=== PATIENT | female | born 1955 | race Caucasian/White ===

== ENCOUNTER 2021-08-06 02:39 | Outpatient (CLI) | payer MEDICARE, MEDICAID, SELFPAY ==
[2021-08-06 08:29] LABS: Abs Immature Grans 0.03 10^3/uL (0.0-0.06); Absolute Basophil Count 0.09 10^3/uL (0.0-0.2); Absolute Eosinophil Count 0.04 10^3/uL (0.0-0.7); Absolute Lymphocyte Count 1.31 10^3/uL (1.2-3.4); Absolute Neutrophil Count 3.31 10^3/uL (1.2-6.7); Basophils % 1.7; Eosinophils % 0.8; HCT 38.5 % (36.0-46.0); HGB 11.7 g/dL (11.2-15.7); Immature Grans % 0.6; Lymphocytes % 24.8; MCH 30.3 pg (27.0-33.0); MCHC 30.4 % (32.0-36.0); MCV 99.7 fL (80-95); MPV 10.2 fL (8.0-11.0); Monocytes % 9.5; Neutrophils % 62.6; Nucleated RBC 0 %; Platelet Count 293 10^3/uL (130-400); RBC 3.86 10^6/uL (3.93-5.22); RDW 14.5 % (11.7-14.6); RDW-SD 52.2 fL; WBC 5.28 10^3/uL (4.4-10.8)
[2021-08-06 08:46] LABS: ALT 22 U/L (14-59); AST 15 U/L (15-37); Albumin 3.6 g/dL (3.4-5.0); Alkaline Phosphatase 55 U/L (46-116); BUN 19 mg/dL (7-18); Bilirubin, Total 0.3 mg/dL (0.2-1.0); CREATININE 0.9 mg/dL (0.55-1.02); Chloride 106 mmol/L (98-107); Glucose 98 mg/dL (74-106); Magnesium 2.2 mg/dL (1.8-2.4); Potassium 4.5 mmol/L (3.5-5.1); Sodium 143 mmol/L (136-145); Total Protein 7.3 g/dL (6.4-8.2)
== END 2021-08-06 02:40 | disposition home or self-care (01) ==
PROVIDERS: PCP Family Medicine; Visit Provider Internal Medicine Medical Oncology
DX: C34.90 Malignant neoplasm of unspecified part of unspecified bronchus or lung (principal)
CPT/HCPCS: 36415; 80053; 83735; 85025

== ENCOUNTER 2021-08-27 03:32 | Outpatient (CLI) | payer MEDICARE, SELFPAY | END 2021-08-27 03:33 | disposition home or self-care (01) | LOC: LBO 03:33 | PROVIDERS: PCP Family Medicine; Visit Provider Internal Medicine Medical Oncology ==

== ENCOUNTER 2021-08-29 01:45 | Outpatient (CLI) | payer MEDICARE, SELFPAY ==
[2021-08-29 09:13] LABS: Absolute Basophil Count 0.05 10^3/uL (0.0-0.2); Absolute Eosinophil Count 0.03 10^3/uL (0.0-0.7); Absolute Lymphocyte Count 1.01 10^3/uL (1.2-3.4); Absolute Monocyte Count 0.56 10^3/uL (0.1-0.8); Absolute Neutrophil Count 5.09 10^3/uL (1.2-6.7); Basophils % 0.7; Eosinophils % 0.4; HCT 36.8 % (36.0-46.0); HGB 11.5 g/dL (11.2-15.7); Immature Grans % 2.9; Lymphocytes % 14.6; MCH 30.6 pg (27.0-33.0); MCHC 31.3 % (32.0-36.0); MCV 97.9 fL (80-95); MPV 8.9 fL (8.0-11.0); Monocytes % 8.1; Neutrophils % 73.3; Nucleated RBC 0 %; Platelet Count 351 10^3/uL (130-400); RBC 3.76 10^6/uL (3.93-5.22); RDW 14.2 % (11.7-14.6); RDW-SD 50.9 fL; WBC 6.94 10^3/uL (4.4-10.8)
[2021-08-29 09:23] LABS: ALT 20 U/L (14-59); AST 13 U/L (15-37); Albumin 3.5 g/dL (3.4-5.0); Alkaline Phosphatase 73 U/L (46-116); Anion Gap 7.9 mmol/L (3-11); BUN 22 mg/dL (7-18); Bilirubin, Total 0.2 mg/dL (0.2-1.0); CO2 32.1 mmol/L (21.0-32.0); Calcium 9.3 mg/dL (8.5-10.1); Chloride 101 mmol/L (98-107); Estimated GFR 55.64 (mL/min/1.73m2); Glucose 91 mg/dL (74-106); Magnesium 2.1 mg/dL (1.8-2.4); Potassium 3.8 mmol/L (3.5-5.1); Sodium 141 mmol/L (136-145); Total Protein 7.7 g/dL (6.4-8.2)
== END 2021-08-29 01:46 | disposition home or self-care (01) ==
LOC: LBO 01:46
PROVIDERS: PCP Family Medicine; Visit Provider Internal Medicine Medical Oncology
DX: C34.90 Malignant neoplasm of unspecified part of unspecified bronchus or lung (principal)
CPT/HCPCS: 36415; 80053; 83735; 85025

== ENCOUNTER 2021-09-17 01:43 | Outpatient (CLI) | payer MEDICARE, SELFPAY ==
[2021-09-17 08:49] LABS: HCT 29.1 % (36.0-46.0); HGB 9.1 g/dL (11.2-15.7); MCH 30.5 pg (27.0-33.0); MCHC 31.3 % (32.0-36.0); MCV 97.7 fL (80-95); MPV 9.4 fL (8.0-11.0); Nucleated RBC 0 %; Platelet Count 125 10^3/uL (130-400); RBC 2.98 10^6/uL (3.93-5.22); RDW 15.1 % (11.7-14.6); RDW-SD 50.6 fL
[2021-09-17 09:00] LABS: ALT 25 U/L (14-59); AST 17 U/L (15-37); Albumin 3.4 g/dL (3.4-5.0); Alkaline Phosphatase 74 U/L (46-116); Anion Gap 5.6 mmol/L (3-11); BUN 13 mg/dL (7-18); Bilirubin, Total 0.2 mg/dL (0.2-1.0); CO2 33.4 mmol/L (21.0-32.0); CREATININE 0.8 mg/dL (0.55-1.02); Calcium 8.8 mg/dL (8.5-10.1); Chloride 104 mmol/L (98-107); Glucose 87 mg/dL (74-106); Magnesium 1.9 mg/dL (1.8-2.4); Potassium 3.9 mmol/L (3.5-5.1); Sodium 143 mmol/L (136-145); WBC 1.55 10^3/uL (4.4-10.8)
[2021-09-17 09:03] LABS: Absolute Eosinophil Count 0.02 10^3/uL (0.0-0.7); Absolute Lymphocyte Count 0.59 10^3/uL (1.2-3.4); Absolute Monocyte Count 0.36 10^3/uL (0.1-0.8); Absolute Neutrophil Count 0.56 10^3/uL (1.2-6.7); Atypical Lymphocytes % 5; Bands % 2; Diff Comment Manual Differential; Metamyelocytes % 2; RBC Morphology Normal
== END 2021-09-17 01:44 | disposition home or self-care (01) ==
LOC: LBO 01:43
PROVIDERS: PCP Family Medicine; Visit Provider Internal Medicine Medical Oncology
DX: C34.90 Malignant neoplasm of unspecified part of unspecified bronchus or lung (principal)
CPT/HCPCS: 36415; 80053; 83735; 85025

== ENCOUNTER 2021-09-24 02:50 | Outpatient (CLI) | payer MEDICARE, SELFPAY ==
[2021-09-24 10:29] LABS: Abs Immature Grans 0.01 10^3/uL (0.0-0.06); Absolute Basophil Count 0.04 10^3/uL (0.0-0.2); Absolute Eosinophil Count 0.02 10^3/uL (0.0-0.7); Absolute Lymphocyte Count 1.02 10^3/uL (1.2-3.4); Absolute Monocyte Count 0.69 10^3/uL (0.1-0.8); Absolute Neutrophil Count 3.48 10^3/uL (1.2-6.7); Basophils % 0.8; Eosinophils % 0.4; HCT 32.1 % (36.0-46.0); HGB 10.1 g/dL (11.2-15.7); Immature Grans % 0.2; Lymphocytes % 19.4; MCHC 31.5 % (32.0-36.0); MCV 98.5 fL (80-95); MPV 8.5 fL (8.0-11.0); Monocytes % 13.1; Neutrophils % 66.1; Nucleated RBC 0 %; Platelet Count 308 10^3/uL (130-400); RBC 3.26 10^6/uL (3.93-5.22); RDW 17.2 % (11.7-14.6); WBC 5.26 10^3/uL (4.4-10.8)
[2021-09-24 10:49] LABS: ALT 18 U/L (14-59); AST 13 U/L (15-37); Albumin 3.8 g/dL (3.4-5.0); Alkaline Phosphatase 75 U/L (46-116); Anion Gap 6.6 mmol/L (3-11); BUN 16 mg/dL (7-18); Bilirubin, Total 0.3 mg/dL (0.2-1.0); CO2 31.4 mmol/L (21.0-32.0); CREATININE 0.9 mg/dL (0.55-1.02); Calcium 9.1 mg/dL (8.5-10.1); Chloride 104 mmol/L (98-107); Glucose 87 mg/dL (74-106); Potassium 3.8 mmol/L (3.5-5.1); Sodium 142 mmol/L (136-145); Total Protein 7.5 g/dL (6.4-8.2)
== END 2021-09-24 02:51 | disposition home or self-care (01) ==
LOC: LBO 02:51
PROVIDERS: PCP Family Medicine; Visit Provider Internal Medicine Medical Oncology
DX: C34.90 Malignant neoplasm of unspecified part of unspecified bronchus or lung (principal)
CPT/HCPCS: 36415; 80053; 83735; 85025

== ENCOUNTER 2021-10-02 00:50 | Outpatient (CLI) | payer MEDICARE, SELFPAY ==
--- NOTE | 2021-10-02 | DI.MRI_ITS ---
Exam(s) MR BRAIN WO/W EXAM: MR BRAIN WO/W CLINICAL HISTORY: LUNG CA,C34.90,S/P TREATMENT,RESTAGING EXAM TECHNIQUE: Multiplanar multisequence MRI of the brain was performed. CONTRAST MATERIAL: IV Contrast: 12 mL of Dotarem contrast administered. FINDINGS: VENTRICLES AND EXTRA AXIAL SPACES: Normal in size and morphology for the patient's age. HEMORRHAGE: None. CEREBRAL PARENCHYMA: No focus of restricted diffusion to suggest acute infarct. No space-occupying le gerard identified. There are areas of hyperintense signal in the white matter on the T2 and FLAIR image s most consistent with small vessel ischemic disease. There is again seen an area of CSF signal in t he left cerebellar hemisphere which may represent an old infarct. MIDLINE SHIFT: None. BRAINSTEM/CEREBELLUM: Normal. CALVARIUM: Normal. ENHANCEMENT: No suspicious enhancement identified. VISUALIZED PARANASAL SINUSES/MASTOIDS: Clear. [place]: Normal flow void. PITUITARY GLAND: Unremarkable. OTHER FINDINGS: IMPRESSION: No evidence of intracranial metastatic disease. DATA REPOSITORY:
== END 2021-10-02 01:10 ==
PROVIDERS: PCP Family Medicine; Visit Provider Radiology Radiation Oncology
DX: C34.90 Malignant neoplasm of unspecified part of unspecified bronchus or lung (principal); Z12.89 Encounter for screening for malignant neoplasm of other sites; I67.82 Cerebral ischemia
CPT/HCPCS: 70553

== ENCOUNTER → 2021-10-02 00:51 | Outpatient (CLI) | payer MEDICARE, MEDICAID, SELFPAY ==
[2021-10-02] MEDS: Omnipaque 350 MG/ML 100 ML BTL 70 ML IJ (09:05)
--- NOTE | 2021-10-02 09:07 | DI.CT_ITS ---
Exam(s) CT CHEST W EXAM: CT CHEST W CLINICAL HISTORY: LUNG CA,C34.90,CHEMO INDUCED NEUROPENIA,D70.1,T45.1X5A,? TREATMENT RESPONSE TECHNIQUE: Imaging Protocol: Axial computed tomography images with coronal and sagittal reformatted images were created and reviewed CONTRAST MATERIAL: Intravenous: Omnipaque 350 Contrast volume:70 mL. COMPARISON: CT,PT NM PET CT STANDARD SKULL BASE TO MID-THIGH from 06/18/[address] CHEST W CONTRAST from 07/24/2021 FINDINGS: Tracheobronchial tree: Patent where visualized. Pulmonary parenchyma: No consolidation or dominant measurable mass. Centrilobular emphysematous angeles es are present. The small previously described oblong density in the superior segment of the left lo wer lobe is unchanged. (Series 2, image 194). No other pulmonary nodules are identified. There is a calcified nodule in the left lower lobe. Mediastinum and Sofiya: There has been continued decrease in size of the subcarinal mass now measuring 6 mm x 9 mm. The esophagus is unremarkable. Thyroid gland: Unremarkable. Pleura: No effusion or pneumothorax. Heart: The heart is not dilated. Mild coronary artery calcification. No pericardial effusion. Aorta: Thoracic aorta non-dilated. Atherosclerosis. Pulmonary arteries: Pulmonary arteries are insufficiently opacified for evaluation of pulmonary embol ic disease. No central pulmonary embolus is seen. Upper abdomen: Stable findings in the upper abdomen. Lymph nodes: No significant axillary adenopathy. Bones: Within normal limits for the patient's age. Soft tissues: Unremarkable. IMPRESSION: 1. Continued decrease in size of the subcarinal mass/adenopathy. 2. Stable density in the superior segment of the left lower lobe. RADIATION DOSE DELIVERED: 344.57mGy.cm Total DLP DATA REPOSITORY: All CT scans at this facility are submitted to the National Radiology Data Registry (NRDR) Dose Index Registry (DIR) with the [employer] (ACR). RADIATION OPTIMIZATION: All CT scans at this facility use at least one of these dose optimization te chniques: automated exposure control; mA and/or kV adjustment per patient size (includes targeted exa ms where dose is matched to clinical indication); or iterative reconstruction.
== END ==
PROVIDERS: PCP Family Medicine; Visit Provider Nurse Practitioner Family
DX: C34.92 Malignant neoplasm of unspecified part of left bronchus or lung (principal); D70.1 Agranulocytosis secondary to cancer chemotherapy; J43.2 Centrilobular emphysema
CPT/HCPCS: 70553; 71260; J3490

== ENCOUNTER → 2022-01-31 01:52 | Outpatient (CLI) | payer MEDICARE, MEDICAID, SELFPAY ==
--- NOTE | 2022-01-31 | DI.CT_ITS ---
Exam(s) CT CHEST W EXAM: CT CHEST W CLINICAL HISTORY: F/U LUNG CA, RESTAGING S/P CHEMO AND RT,C34.90 TECHNIQUE: Imaging Protocol: Axial computed tomography images with coronal and sagittal reformatted images were created and reviewed CONTRAST MATERIAL: Intravenous: Omnipaque 350 Contrast volume:70 mL. COMPARISON: CT CT CHEST SCREENING LUNG CANCER from 05/28/2021 CT,PT NM PET CT STANDARD SKULL BASE TO MID-THIGH from 06/18/[address] CHEST W CONTRAST from 07/24/[address] CHEST W from 10/02/2021 FINDINGS: Tracheobronchial tree: Patent where visualized. Pulmonary parenchyma: No consolidation or dominant measurable mass. Mild centrilobular emphysematous changes are present. The ovoid opacity in the superior segment of the left lower lobe is stable. (S eries 4, image 207). No new pulmonary nodules are present. Mediastinum and Sofiya: No dominant adenopathy or fluid collection. The subcarinal lymph node is uncha nged compared to the prior examination. The esophagus is unremarkable. Thyroid gland: Unremarkable. Pleura: No effusion or pneumothorax. Heart: The heart is not dilated. No coronary artery calcifications are seen. No pericardial effusion. Aorta: Thoracic aorta non-dilated. Atherosclerosis is present. Pulmonary arteries: The pulmonary arteries are not adequately opacified for evaluation of pulmonary e mbolic disease. Upper abdomen: There is decreased attenuation of the liver suggesting fatty infiltration. Lymph nodes: No axillary or supraclavicular adenopathy is present. Bones: Within normal limits for the patient's age. Soft tissues: Unremarkable. IMPRESSION: 1. No significant change in appearance of the chest compared to the prior examination. RADIATION DOSE DELIVERED: 394.79mGy.cm Total DLP DATA REPOSITORY: All CT scans at this facility are submitted to the National Radiology Data Registry (NRDR) Dose Index Registry (DIR) with the [employer] (ACR). RADIATION OPTIMIZATION: All CT scans at this facility use at least one of these dose optimization te chniques: automated exposure control; mA and/or kV adjustment per patient size (includes targeted exa ms where dose is matched to clinical indication); or iterative reconstruction.
[2022-01-31 08:13] LABS: Abs Immature Grans 0.02 10^3/uL (0.0-0.06); Absolute Basophil Count 0.03 10^3/uL (0.0-0.2); Absolute Eosinophil Count 0.08 10^3/uL (0.0-0.7); Absolute Lymphocyte Count 0.95 10^3/uL (1.2-3.4); Absolute Monocyte Count 0.39 10^3/uL (0.1-0.8); Absolute Neutrophil Count 3.77 10^3/uL (1.2-6.7); Basophils % 0.6; Eosinophils % 1.5; HCT 41.2 % (36.0-46.0); HGB 12.9 g/dL (11.2-15.7); Immature Grans % 0.4; Lymphocytes % 18.1; MCHC 31.3 % (32.0-36.0); MCV 96 fL (80-95); MPV 9.2 fL (8.0-11.0); Monocytes % 7.4; Platelet Count 209 10^3/uL (130-400); RDW 13.7 % (11.7-14.6); RDW-SD 48.4 fL; WBC 5.24 10^3/uL (4.4-10.8)
[2022-01-31 08:54] LABS: ALT 18 U/L (14-59); AST 11 U/L (15-37); Albumin 3.8 g/dL (3.4-5.0); Alkaline Phosphatase 60 U/L (46-116); Anion Gap 9.4 mmol/L (3-11); BUN 15 mg/dL (7-18); Bilirubin, Total 0.4 mg/dL (0.2-1.0); CO2 29.6 mmol/L (21.0-32.0); Calcium 9.4 mg/dL (8.5-10.1); Chloride 99 mmol/L (98-107); Estimated GFR 55.47 (mL/min/1.73m2); Glucose 124 mg/dL (74-106); Magnesium 1.8 mg/dL (1.8-2.4); Potassium 3.3 mmol/L (3.5-5.1); Sodium 138 mmol/L (136-145); Total Protein 7.4 g/dL (6.4-8.2)
[2022-01-31] MEDS: Omnipaque 350 MG/ML 100 ML BTL IJ (09:10)
== END ==
PROVIDERS: PCP Family Medicine; Visit Provider Internal Medicine Medical Oncology
DX: C34.90 Malignant neoplasm of unspecified part of unspecified bronchus or lung (principal)
CPT/HCPCS: 80053; 71260; 83735; 85025; J3490

== ENCOUNTER → 2022-03-06 02:05 | Outpatient (CLI) | payer MEDICARE, MEDICAID, SELFPAY ==
--- NOTE | 2022-03-06 | DI.MRI_ITS ---
Exam(s) MR BRAIN WO/W EXAM: MR BRAIN WO/W CLINICAL HISTORY: LUNG CANCER C34.90. TECHNIQUE: Multiplanar multisequence MRI of the brain was performed. CONTRAST MATERIAL: IV Contrast: 12 ML of Dotarem contrast administered. COMPARISON: MR MR BRAIN WO/W from 10/02/2021 FINDINGS: VENTRICLES AND EXTRA AXIAL SPACES: Normal in size and morphology for the patient's age. HEMORRHAGE: None. CEREBRAL PARENCHYMA: Mild atrophy. Mild white matter changes consistent with small vessel disease. No focus of restricted diffusion to suggest acute infarct. No space-occupying lesion identified. MIDLINE SHIFT: None. BRAINSTEM/CEREBELLUM: Stable small area of CSF signal left cerebellum.. CALVARIUM: Normal. ENHANCEMENT: No suspicious enhancement identified. VISUALIZED PARANASAL SINUSES/MASTOIDS: Clear. OTHER FINDINGS: None. IMPRESSION: No evidence of metastatic disease. Stable mild white matter changes of small vessel disease. DATA REPOSITORY:
[2022-03-06] MEDS: Normal Saline Flush 10 ML SYR IVP (08:58)
== END ==
PROVIDERS: PCP Family Medicine; Visit Provider Radiology Radiation Oncology
DX: R90.82 White matter disease, unspecified (principal); C34.90 Malignant neoplasm of unspecified part of unspecified bronchus or lung
CPT/HCPCS: 70553

== ENCOUNTER → 2022-06-12 02:15 | Outpatient (CLI) | payer MEDICARE, MEDICAID, SELFPAY ==
--- NOTE | 2022-06-12 | DI.CT_ITS ---
Exam(s) CT CHEST W EXAM: CT CHEST W CLINICAL HISTORY: CARCINOMA OF LUNG C34.90, S/P CHEMO, SURVAILLANCE TECHNIQUE: Imaging Protocol: Axial computed tomography images with coronal and sagittal reformatted images were created and reviewed CONTRAST MATERIAL: Intravenous: Omnipaque 350Contrast volume:70 mL. COMPARISON: CT CT CHEST W CONTRAST from 07/24/[address] CHEST W from 01/31/2022 FINDINGS: Tracheobronchial tree: Patent where visualized. Pulmonary parenchyma: No consolidation or dominant measurable mass. Emphysematous changes are present in the lungs. The small ovoid structure in the superior segment of the left lower lobe is grossly un changed. (Series 4, image 178). The lungs are otherwise clear. No other pulmonary nodules are seen . Mediastinum and Sofiya: No dominant adenopathy or fluid collection. The esophagus is unremarkable. Thyroid gland: Unremarkable. Pleura: No effusion or pneumothorax. Heart: The heart is not dilated. Mild coronary artery calcification is present. No pericardial effusi on. Aorta: Thoracic aorta non-dilated. Atherosclerosis is present. Pulmonary arteries: The pulmonary arteries are insufficiently of opacified for evaluation of pulmonar y emboli. Upper abdomen: There is diffuse fatty infiltration of the liver. Lymph nodes: Within normal limits. Bones: Within normal limits for the patient's age. Soft tissues: Unremarkable. IMPRESSION: Stable appearance of the chest since 01/31/2022. RADIATION DOSE DELIVERED: 383.9mGy.cm Total DLP DATA REPOSITORY: All CT scans at this facility are submitted to the National Radiology Data Registry (NRDR) Dose Index Registry (DIR) with the [employer] (ACR). RADIATION OPTIMIZATION: All CT scans at this facility use at least one of these dose optimization te chniques: automated exposure control; mA and/or kV adjustment per patient size (includes targeted exa ms where dose is matched to clinical indication); or iterative reconstruction.
[2022-06-12 14:37] LABS: ALT 19 U/L (14-59); AST 13 U/L (15-37); Albumin 3.4 g/dL (3.4-5.0); Alkaline Phosphatase 65 U/L (46-116); Anion Gap 6.3 mmol/L (3-11); BUN 17 mg/dL (7-18); Bilirubin, Total 0.3 mg/dL (0.2-1.0); CO2 33.7 mmol/L (21.0-32.0); CREATININE 1.1 mg/dL (0.55-1.02); Calcium 8.8 mg/dL (8.5-10.1); Chloride 104 mmol/L (98-107); Estimated GFR 55.42 (mL/min/1.73m2); Glucose 101 mg/dL (74-106); LDH 146 U/L (81-234); Potassium 3.9 mmol/L (3.5-5.1); Sodium 144 mmol/L (136-145)
[2022-06-12] MEDS: Omnipaque 350 MG/ML 500 ML BTL-Imaging package IJ (14:55)
== END ==
PROVIDERS: PCP Family Medicine; Visit Provider Internal Medicine Medical Oncology
DX: C34.90 Malignant neoplasm of unspecified part of unspecified bronchus or lung (principal)
CPT/HCPCS: 80053; 71260; 83615; 85025

== ENCOUNTER → 2022-07-11 01:03 | Outpatient (CLI) | payer MEDICARE, MEDICAID, SELFPAY ==
--- NOTE | 2022-07-11 12:55 | DI.MRI_ITS ---
Exam(s) MR BRAIN WO/W EXAM: MR BRAIN WO/W CLINICAL HISTORY: SMALL CELL CA LUNG, C34.90, S/P IRRADIATION, F/U SURVEILLANCE TECHNIQUE: Multiplanar multisequence MRI of the brain was performed. CONTRAST MATERIAL: IV Contrast: 13 mL of Dotarem contrast administered. MR MR BRAIN WO/W from 03/06/2022 FINDINGS: VENTRICLES AND EXTRA AXIAL SPACES: Normal in size and morphology for the patient's age. HEMORRHAGE: None. CEREBRAL PARENCHYMA: No focus of restricted diffusion to suggest acute infarct. No space-occupying le gerard identified. There are areas of hyperintense signal seen in the white matter on the FLAIR and T2 weighted images most consistent with small vessel ischemic disease. MIDLINE SHIFT: None. BRAINSTEM/CEREBELLUM: Normal. CALVARIUM: Normal. ENHANCEMENT: No suspicious enhancement identified. No intracranial mass or enhancing lesion is identi fied. VISUALIZED PARANASAL SINUSES/MASTOIDS: Clear. [place]: Normal flow void. PITUITARY GLAND: Unremarkable. OTHER FINDINGS: IMPRESSION: No evidence of intracranial metastatic disease. DATA REPOSITORY:
== END ==
PROVIDERS: PCP Family Medicine; Visit Provider Radiology Radiation Oncology
DX: C34.90 Malignant neoplasm of unspecified part of unspecified bronchus or lung (principal)
CPT/HCPCS: 70553

== ENCOUNTER 2022-10-14 02:01 | Outpatient (CLI) | payer MEDICARE, MEDICAID, SELFPAY ==
--- NOTE | 2022-10-14 | DI.CT_ITS ---
Exam(s) CT CHEST W EXAM: CT CHEST W CLINICAL HISTORY: LUNG CANCER C34.90 TECHNIQUE: Imaging Protocol: Axial computed tomography images with coronal and sagittal reformatted images were created and reviewed CONTRAST MATERIAL: Intravenous: Omnipaque 350Contrast volume:70 mL. COMPARISON: CT CT CHEST SCREENING LUNG CANCER from 05/28/[address] CHEST W CONTRAST from 07/24/[address] CHEST W from 06/12/2022 FINDINGS: Tracheobronchial tree: Patent where visualized. Pulmonary parenchyma: Emphysematous changes are present in the lungs. The nodular area in the superi or segment of the left lower lobe is much less prominent compared to the prior examination. No other pulmonary nodules or infiltrates are seen. No architectural distortion. Mediastinum and Sofiya: No dominant adenopathy or fluid collection. The esophagus is unremarkable. Thyroid gland: Unremarkable. Pleura: No effusion or pneumothorax. Heart: The heart is not dilated. Coronary artery calcification is present. No pericardial effusion. Aorta: Thoracic aorta non-dilated. Atherosclerosis is present. Pulmonary arteries: Due to the timing of the bolus, the segmental and subsegmental pulmonary arteries are inadequately opacified for evaluation of pulmonary artery emboli. No large central pulmonary em bolus is seen. Upper abdomen: Fatty liver. Lymph nodes: Within normal limits. Bones: Within normal limits for the patient's age. Soft tissues: Unremarkable. IMPRESSION: Stable appearance of the CT scan of the chest. RADIATION DOSE DELIVERED: 357.96mGy.cm Total DLP DATA REPOSITORY: All CT scans at this facility are submitted to the National Radiology Data Registry (NRDR) Dose Index Registry (DIR) with the [employer] (ACR). RADIATION OPTIMIZATION: All CT scans at this facility use at least one of these dose optimization te chniques: automated exposure control; mA and/or kV adjustment per patient size (includes targeted exa ms where dose is matched to clinical indication); or iterative reconstruction.
--- NOTE | 2022-10-14 | DI.MRI_ITS ---
Exam(s) MR BRAIN WO/W EXAM: MR BRAIN WO/W CLINICAL HISTORY: LIMITED STAGE SMALL CELL LUNG CA, SURVEILLANCE, C34.91 TECHNIQUE: Multiplanar multisequence MRI of the brain was performed. CONTRAST MATERIAL: IV Contrast: 13 mL of Dotarem contrast administered. COMPARISON: MR MR BRAIN WO/W from 07/11/2022 FINDINGS: VENTRICLES AND EXTRA AXIAL SPACES: Normal in size and morphology for the patient's age. HEMORRHAGE: None. CEREBRAL PARENCHYMA: No focus of restricted diffusion to suggest acute infarct. No space-occupying le gerard identified. There are areas of hyperintense signal seen in the white matter on the FLAIR and T2 weighted images consistent with small vessel ischemic disease. There is an old lacunar infarct in th e left cerebellum. MIDLINE SHIFT: None. BRAINSTEM/CEREBELLUM: Normal. CALVARIUM: Normal. ENHANCEMENT: No suspicious enhancement identified. VISUALIZED PARANASAL SINUSES/MASTOIDS: Clear. [place]: Normal flow void. PITUITARY GLAND: Unremarkable. OTHER FINDINGS: IMPRESSION: No evidence of intracranial metastatic disease. DATA REPOSITORY:
[2022-10-14 13:11] LABS: Abs Immature Grans 0.01 10^3/uL (0.0-0.06); Absolute Basophil Count 0.04 10^3/uL (0.0-0.2); Absolute Eosinophil Count 0.09 10^3/uL (0.0-0.7); Absolute Monocyte Count 0.45 10^3/uL (0.1-0.8); Absolute Neutrophil Count 3.78 10^3/uL (1.2-6.7); Basophils % 0.7; Eosinophils % 1.6; HCT 42.5 % (36.0-46.0); HGB 13.2 g/dL (11.2-15.7); Immature Grans % 0.2; Lymphocytes % 22.9; MCH 30.6 pg (27.0-33.0); MCHC 31.1 % (32.0-36.0); MCV 98 fL (80-95); MPV 9.5 fL (8.0-11.0); Monocytes % 7.9; Neutrophils % 66.7; Platelet Count 210 10^3/uL (130-400); RBC 4.32 10^6/uL (3.93-5.22); RDW-SD 46.2 fL; WBC 5.67 10^3/uL (4.4-10.8)
[2022-10-14 13:33] LABS: ALT 24 U/L (14-59); AST 19 U/L (15-37); Alkaline Phosphatase 76 U/L (46-116); Anion Gap 6.6 mmol/L (3-11); BUN 19 mg/dL (7-18); Bilirubin, Total 0.4 mg/dL (0.2-1.0); CO2 31.4 mmol/L (21.0-32.0); Calcium 9.5 mg/dL (8.5-10.1); Chloride 102 mmol/L (98-107); Estimated GFR 62.13 (mL/min/1.73m2); Glucose 88 mg/dL (74-106); Potassium 4.2 mmol/L (3.5-5.1); Sodium 140 mmol/L (136-145); Total Protein 7.8 g/dL (6.4-8.2)
[2022-10-14] MEDS: Normal Saline Flush 10 ML SYR IVP (13:58)
[2022-10-14] MEDS: Gadoterate meglumine 20 ML VIAL 13 ML IVP (13:58)
[2022-10-14] MEDS: Normal Saline - Diluent 50 ML VIAL IJ (14:38)
[2022-10-14] MEDS: Omnipaque 350 MG/ML 100 ML BTL 70 ML IJ (14:41)
== END 2022-10-14 02:21 ==
PROVIDERS: PCP Family Medicine; Visit Provider Radiology Radiation Oncology
DX: C34.91 Malignant neoplasm of unspecified part of right bronchus or lung (principal); J43.8 Other emphysema; K76.0 Fatty (change of) liver, not elsewhere classified; I67.89 Other cerebrovascular disease; Z12.89 Encounter for screening for malignant neoplasm of other sites; D70.1 Agranulocytosis secondary to cancer chemotherapy
CPT/HCPCS: 70553; 80053; 71260; 85025; J3490

== ENCOUNTER → 2023-04-21 02:50 | Outpatient (CLI) | payer MEDICARE, MEDICAID, SELFPAY ==
--- NOTE | 2023-04-21 | DI.MRI_ITS ---
Exam(s) MR BRAIN WO/W EXAM: MR BRAIN WO/W CLINICAL HISTORY: LUNG CANCER C34.90 SURVEILLANCE SCAN. TECHNIQUE: Multiplanar multisequence MRI of the brain was performed. CONTRAST MATERIAL: IV Contrast: 13 ML of Dotarem contrast administered. COMPARISON: MR MR BRAIN WO/W from 10/14/2022 FINDINGS: VENTRICLES AND EXTRA AXIAL SPACES: Normal in size and morphology for the patient's age. HEMORRHAGE: None. CEREBRAL PARENCHYMA: No focus of restricted diffusion to suggest acute infarct. No space-occupying le gerard identified. White matter changes of small vessel disease. MIDLINE SHIFT: None. BRAINSTEM/CEREBELLUM: Small area of old infarct in the left inferior cerebellum. CALVARIUM: Normal. ENHANCEMENT: No suspicious enhancement identified. VISUALIZED PARANASAL SINUSES/MASTOIDS: Clear. OTHER FINDINGS: None. IMPRESSION: No evidence of metastatic disease. White matter changes of small vessel disease. DATA REPOSITORY:
--- NOTE | 2023-04-21 | DI.CT_ITS ---
Exam(s) CT CHEST W EXAM: CT CHEST W CLINICAL HISTORY: LUNG CANCER C34.90 SURVEILLANCE SCAN TECHNIQUE: Imaging Protocol: Axial computed tomography images with coronal and sagittal reformatted images were created and reviewed CONTRAST MATERIAL: Intravenous: Omnipaque 350 Contrast volume:70 ml. COMPARISON: CT CT CHEST W from 01/31/[address] CHEST W from 10/14/2022 FINDINGS: Pulmonary parenchyma: No consolidation. No dominant measurable mass. [id number] emphysematous changes. Tracheobronchial tree: No bronchiectasis or mucous plugging. Mediastinum and Sofiya: No dominant adenopathy or fluid collection. Pleura: No effusion. No pneumothorax. Heart: The heart is not dilated. Minimal coronary artery calcifications are seen. Aorta: Thoracic aorta non-dilated. Minimal atherosclerotic changes. Upper abdomen: Hepatic steatosis. Bones: Minimaldegenerative changes in the spine. No lytic or blastic lesions. Soft tissues: Unremarkable. IMPRESSION: Emphysematous changes. No pulmonary nodules or infiltrates. RADIATION DOSE DELIVERED: 410.48mGy.cm Total DLP DATA REPOSITORY: All CT scans at this facility are submitted to the National Radiology Data Registry (NRDR) Dose Index Registry (DIR) with the [employer] (ACR). RADIATION OPTIMIZATION: All CT scans at this facility use at least one of these dose optimization te chniques: automated exposure control; mA and/or kV adjustment per patient size (includes targeted exa ms where dose is matched to clinical indication); or iterative reconstruction.
[2023-04-21 08:49] LABS: Abs Immature Grans 0.02 10^3/uL (0.0-0.06); Absolute Basophil Count 0.04 10^3/uL (0.0-0.2); Absolute Eosinophil Count 0.13 10^3/uL (0.0-0.7); Absolute Lymphocyte Count 1.08 10^3/uL (1.2-3.4); Absolute Neutrophil Count 4.37 10^3/uL (1.2-6.7); Basophils % 0.7; Eosinophils % 2.2; HCT 42.7 % (36.0-46.0); HGB 13.5 g/dL (11.2-15.7); Immature Grans % 0.3; Lymphocytes % 17.9; MCH 29.9 pg (27.0-33.0); MCHC 31.6 % (32.0-36.0); MCV 95 fL (80-95); MPV 9.4 fL (8.0-11.0); Monocytes % 6.6; Neutrophils % 72.3; Platelet Count 259 10^3/uL (130-400); RBC 4.51 10^6/uL (3.93-5.22); RDW-SD 45.1 fL; WBC 6.04 10^3/uL (4.4-10.8)
[2023-04-21 09:06] LABS: ALT 25 U/L (14-59); AST 16 U/L (15-37); Albumin 3.8 g/dL (3.4-5.0); Alkaline Phosphatase 87 U/L (46-116); Anion Gap 11.2 mmol/L (3-11); BUN 16 mg/dL (7-18); Bilirubin, Total 0.4 mg/dL (0.2-1.0); CO2 26.8 mmol/L (21.0-32.0); CREATININE 0.9 mg/dL (0.55-1.02); Calcium 9.9 mg/dL (8.5-10.1); Chloride 100 mmol/L (98-107); Estimated GFR 70.07 (mL/min/1.73m2); Glucose 110 mg/dL (74-106); Potassium 3.8 mmol/L (3.5-5.1); Sodium 138 mmol/L (136-145); Total Protein 8.2 g/dL (6.4-8.2)
[2023-04-21] MEDS: Gadoterate meglumine 20 ML SYRINGE IVP (09:20)
[2023-04-21] MEDS: Normal Saline - Diluent 50 ML VIAL IJ (10:07)
[2023-04-21] MEDS: Normal Saline Flush 10 ML SYR IVP (10:08)
[2023-04-21] MEDS: Omnipaque 350 MG/ML 500 ML BTL-Imaging package IJ (10:10)
== END ==
PROVIDERS: PCP Family Medicine; Visit Provider Internal Medicine Medical Oncology
DX: C34.91 Malignant neoplasm of unspecified part of right bronchus or lung (principal)
CPT/HCPCS: 70553; 80053; 71260; 85025

== ENCOUNTER → 2023-10-13 02:12 | Outpatient (CLI) | payer MEDICARE, MEDICAID, SELFPAY ==
--- NOTE | 2023-10-13 | DI.MRI_ITS ---
Exam(s) MR BRAIN WO/W EXAM: MR BRAIN WO/W CLINICAL HISTORY: CARCINOMA OF LUNG C34.90 TECHNIQUE: Multiplanar multisequence MRI of the brain was performed. CONTRAST MATERIAL: IV Contrast: 14 mL of Dotarem contrast administered. MR MR BRAIN WO/W from 07/11/2022 MR MR BRAIN WO/W from 10/14/2022 MR MR BRAIN WO/W from 04/21/2023 FINDINGS: VENTRICLES AND EXTRA AXIAL SPACES: Normal in size and morphology for the patient's age. HEMORRHAGE: None. CEREBRAL PARENCHYMA: No focus of restricted diffusion to suggest acute infarct. No space-occupying le gerard identified. There are nonenhancing areas of hyperintense signal in the white matter most suggest irineo of chronic microvascular ischemic disease. Stable area of volume loss in the left cerebellar hem isphere which may represent an old infarct. MIDLINE SHIFT: None. BRAINSTEM/CEREBELLUM: Normal. CALVARIUM: Normal. ENHANCEMENT: No suspicious enhancement identified. VISUALIZED PARANASAL SINUSES/MASTOIDS: Clear. [place]: Normal flow void. PITUITARY GLAND: Unremarkable. OTHER FINDINGS: IMPRESSION: No evidence of intracranial metastatic disease. DATA REPOSITORY:
[2023-10-13 09:27] LABS: Abs Immature Grans 0.03 10^3/uL (0.0-0.06); Absolute Basophil Count 0.08 10^3/uL (0.0-0.2); Absolute Eosinophil Count 0.13 10^3/uL (0.0-0.7); Absolute Lymphocyte Count 1.37 10^3/uL (1.2-3.4); Absolute Monocyte Count 0.45 10^3/uL (0.1-0.8); Basophils % 0.9; Eosinophils % 1.5; HCT 45.6 % (36.0-46.0); HGB 14.2 g/dL (11.2-15.7); Immature Grans % 0.4; MCH 29.3 pg (27.0-33.0); MCHC 31.1 % (32.0-36.0); MCV 94 fL (80-95); MPV 9.5 fL (8.0-11.0); Monocytes % 5.3; Neutrophils % 75.9; Platelet Count 260 10^3/uL (130-400); RBC 4.84 10^6/uL (3.93-5.22); RDW 13.6 % (11.7-14.6); RDW-SD 47.5 fL; WBC 8.56 10^3/uL (4.4-10.8)
[2023-10-13 09:42] LABS: ALT 48 U/L (14-59); AST 23 U/L (15-37); Alkaline Phosphatase 96 U/L (46-116); Anion Gap 13.2 mmol/L (3-11); BUN 16 mg/dL (7-18); Bilirubin, Total 0.5 mg/dL (0.2-1.0); CO2 25.8 mmol/L (21.0-32.0); CREATININE 1.1 mg/dL (0.55-1.02); Calcium 9.9 mg/dL (8.5-10.1); Chloride 103 mmol/L (98-107); Estimated GFR 55.07 (mL/min/1.73m2); Glucose 124 mg/dL (74-106); Potassium 4.1 mmol/L (3.5-5.1); Sodium 142 mmol/L (136-145); Total Protein 8.3 g/dL (6.4-8.2)
[2023-10-13] MEDS: Gadoterate meglumine 20 ML SYRINGE 14 ML IVP (09:53)
[2023-10-13] MEDS: Normal Saline Flush 10 ML SYR IVP (09:53)
[2023-10-13] MEDS: Omnipaque 350 MG/ML 100 ML BTL 70 ML IJ (10:22)
[2023-10-13] MEDS: Normal Saline - Diluent 50 ML VIAL IJ (10:24)
--- NOTE | 2023-10-13 10:32 | DI.CT_ITS ---
Exam(s) CT CHEST W EXAM: CT CHEST W CLINICAL HISTORY: CARCINOMA OF LUNG C34.90 TECHNIQUE: Imaging Protocol: Axial computed tomography images with coronal and sagittal reformatted images were created and reviewed CONTRAST MATERIAL: Intravenous: Omnipaque 350Contrast volume:70 mL. COMPARISON: CT CT CHEST W from 10/14/[address] CHEST W from 04/21/2023 FINDINGS: Tracheobronchial tree: Patent where visualized. Pulmonary parenchyma: There are mild emphysematous changes present. No focal consolidating infiltrat es. No pulmonary nodules are present. No architectural distortion. Mediastinum and Sofiya: No dominant adenopathy or fluid collection. The esophagus is unremarkable. Thyroid gland: Unremarkable. Pleura: No effusion or pneumothorax. Heart: The heart is not dilated. Mild coronary artery calcification is present. No pericardial effus ion. Aorta: Thoracic aorta non-dilated. Atherosclerotic calcification is present. There is no evidence of dissection. Pulmonary arteries: Due to the bolus timing, evaluation of the peripheral pulmonary arteries is subop timal. No large central pulmonary embolus is present. Upper abdomen: There is diffuse fatty infiltration of the liver. There is unchanged extra hepatic b iliary ductal dilatation. Lymph nodes: Within normal limits. Bones: Within normal limits for the patient's age. No aggressive osseous lesions are present. Soft tissues: Unremarkable. IMPRESSION: 1. No evidence of recurrent or residual metastatic disease. 2. Mild pulmonary emphysema. 3. Fatty infiltration of the liver. RADIATION DOSE DELIVERED: Total DLP DATA REPOSITORY: All CT scans at this facility are submitted to the National Radiology Data Registry (NRDR) Dose Index Registry (DIR) with the [employer] (ACR). RADIATION OPTIMIZATION: All CT scans at this facility use at least one of these dose optimization te chniques: automated exposure control; mA and/or kV adjustment per patient size (includes targeted exa ms where dose is matched to clinical indication); or iterative reconstruction.
== END ==
PROVIDERS: PCP Family Medicine; Visit Provider Nurse Practitioner Family
DX: C34.91 Malignant neoplasm of unspecified part of right bronchus or lung (principal); K76.0 Fatty (change of) liver, not elsewhere classified
CPT/HCPCS: 70553; 80053; 71260; 85025; J3490

== ENCOUNTER 2024-08-27 00:42 | Outpatient (CLI) | payer MEDICARE, MEDICAID, SELFPAY ==
--- NOTE | 2024-08-27 | DI.CT_ITS ---
Exam(s) CT CHEST/ABD/PEL W EXAM: CT CHEST/ABD/PEL W CLINICAL HISTORY: LUNG CANCER C34.90 S/P SURGERY CHEMO. RESTAGING. TECHNIQUE: Imaging Protocol: Axial computed tomography images with coronal and sagittal reformatted images were created and reviewed CONTRAST MATERIAL: Intravenous: Omnipaque 350 Contrast volume:100 ml Oral: Yes. Oral contrast was also administered for bowel opacification. COMPARISON: CT CT CHEST W from 10/13/2023 FINDINGS: CHEST: LUNGS: A tiny 9 calcified granuloma the right lower lobe.. No new ominous pulmonary nodules, infiltr ates nor pleural effusions. There are no new significant findings in the trachea and mainstem bronch i. MEDIASTINUM: There is no hilar nor mediastinal adenopathy. No supraclavicular nor axillary adenopathy . CARDIAC: Heart size normal. Mild thickening of the anterior pericardium is unchanged.Caliber of the thoracic aorta is within normal limits. OSSEOUS: No significant osseous lesions.No fractures. ABDOMEN: There is no ascites. LIVER: Liver is again noted be hypodense implying steatosis. There no discrete focal hepatic lesions identified. No dilated intrahepatic ducts. GALLBLADDER/BILIARY: No obvious gallbladder pathology. CBD diameter is again noted to be prominent, measuring 8 mm. There are no radiopaque calculi in the CBD. No duodenal nor pancreatic head mass se en. PANCREAS: No evidence of pancreatic mass nor dilatation of the pancreatic duct. SPLEEN: Spleen is not enlarged. There are no intrasplenic lesions. Splenic and portal veins are torrez nt. ADRENALS: There are no significant adrenal masses. KIDNEYS: No calculi nor hydronephrosis. No solid renal masses. Small benign cyst measuring less than 1 cm noted in left kidney. This does not require further workup. ABDOMINAL AORTA: The abdominal aorta is atherosclerotic. 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 Unchanged from previou s.. No dissection. The iliac arteries are calcified-atherosclerotic but not enlarged. LYMPH NODES: There is no retroperitoneal nor paraaortic adenopathy. ABDOMINAL WALL: No evidence of significant anterior abdominal wall nor inguinal hernia. GI: There is no evidence of bowel obstruction.Oral contrast has progressed into the colon. However, there is a density on the wall of the right-side of the colon opposite the ileocecal valve, possibly significant. Colonoscopy recommended. There is no bowel obstruction at this level. PELVIS: LYMPH NODES: There is no intrapelvic nor inguinal adenopathy. GI: No evidence of appendicitis.There is extensive sigmoid diverticulosis. No obvious acute divertic ulitis. URINARY BLADDER: Slight uniform thickening of the are under distension. REPRODUCTIVE: Uterus and adnexal regions appear unremarkable and there is no free fluid in the pelvis . OSSEOUS: No significant osseous lesions. No fractures. IMPRESSION: 1. Compared to prior CT scan of October 2023 there are no new significant intrathoracic findings. No n ew significant lung nodules, pleural effusions, nor intrathoracic adenopathy. 2. Hepatic steatosis again noted. Also slightly prominent CBD diameter, not associated with radiopaq ue calculi in the lower CBD nor pancreatic head mass. 3. Atherosclerotic abdominal aorta and iliac arteries. Ectasia of the proximal abdominal aorta which exhibits maximum diameter 2.8 cm. 4. There is an asymmetric density on the lateral wall of the cecum opposite the ileocecal valve. Rec ommend follow-up colonoscopy. Extensive sigmoid diverticulosis. No evidence of acute diverticulitis. RADIATION DOSE DELIVERED: 343.58mGy.cm Total DLP DATA REPOSITORY: All CT scans at this facility are submitted to the National Radiology Data Registry (NRDR) Dose Index Registry (DIR) with the [employer] (ACR). RADIATION OPTIMIZATION: All CT scans at this facility use at least one of these dose optimization te chniques: automated exposure control; mA and/or kV adjustment per patient size (includes targeted exa ms where dose is matched to clinical indication); or iterative reconstruction.
--- OUTSIDE RECORDS SUMMARY | 2024-08-27 00:44 | XMS_ITS | Encounter Summary ---
Author Organization [facility] Address [address] [place] [address] Care Team Providers Care Veneer Drier Name Role Phone Nini Machado MD Primary Care Provider Encounter Details Date Type Department Care Team (Late st Contact Info) Description 10/27/2007 Results Only [facility] - [place] conversion [address] [place] [address] Nini Machado MD [address] [place] [address],[facility] [[email or web address]] [address] [place] [address] Social History Tobacco Use Types Packs/Day Years Used Date Smoking Tobacco: Never Assessed Comments Unknown Sex and Gender Information Value Date Recorded Sex Assigned at Not on file Legal Sex Female 18:40 EST Gender Identity Not on file Sexual Orientation Not on file documented as of this encounter Plan of Treatment Not on file documented as of this encounter Procedures Procedure Name Priority Date/Time Associated Diagnosis Comments HPV DETECTION, HIGH RISK TYPES Routine 10/27/2007 13:26 EDT documented in this encounter Results * HUMAN PAPILLOMA VIRUS DNA TEST (10/27/2007 13:26 EDT) Specimen Description Cervix, ThinPrep vial [facility] Result Negative for HPV types 16, 18, 31, 33, 35, 39, 45, 51, 52, 56, 58, 59, and 68. [facility] Report Status Final [id number] [facility] 10/27/2007 13:2 6 EDT 11/04/2007 13:26 EDT us Nini Machado MD MICROBIOLOGY - GENERAL ORDER YOANA Final Result [address] [address] documented in this encounter Visit Diagnoses Not on filedocumented in this encounter Care Teams Veneer Drier Relationship Specialty Start Date End Date Nini Machado MD 79 [facility] [[email or web address]] 3 [place] [address] PCP - General 01/26/10 documented as of this encounter
--- OUTSIDE RECORDS SUMMARY | 2024-08-27 00:44 | XMS_ITS | Encounter Summary ---
Author Organization [facility] Address [address] [place] [id number] Care Team Providers Care Waste Disposal Leakage Tester Name Role Phone Nini Machado MD Primary Care Provider Encounter Details Date Type Department Care Team (Late st Contact Info) Description 05/13/2012 Results Only [facility] - [facility] ([facility]) [address], [place] [id number] Chalo Camilo MD [address] [place] [address] Social History Tobacco Use Types [...] Procedure Name Priority Date/Time Associated Diagnosis Comments SURGICAL PATHOLOGY Routine 05/13/2012 0:00 EDT documented in this encounter Results * SURGICAL PATHOLOGY (05/13/2012 0:00 EDT) Pathology Report: SURGICAL PATHOLOGY REPORT Reports generated via electronic interface contain original data; however they are lacking the format of the original report. Caution should be taken when reading/interpretin g unformatted reports. Name: ? HALEY WHITLOCK ? Accession #: ? [id number] ? : ? 1955 (Age: 56) ??F ? Collect Date: ? 05/13/2012 ? Location: ? [facility] ? Receive Date: ? 05/14/2012 ? Provider: CHALO CAMILO MD Copy to: NINI MACHADO MD ? Final Pathologic Diagnosis: A. ?Colon, cecum, biopsy: ?1. ?? Sessile serrated adenoma with cytologic dysplasia. B. ?? Colon, transverse, biopsy: ? 1. ?? Tubular adenoma. C. ?? Colon, 20 cm, biopsy: ? 1. ?? Colonic mucosa with histologic features suggestive of prolapse. ??See comment. D. ?? Colon, 18 cm, biopsy: ? 1. ?? Focal tubular adenoma associated with an area of mucosal prolapse. Comment: ? Deeper sections of specimen (A) and (C) were reviewed. ??(Dr. Reyes)/[facility] Document reviewed and electronically signed by: LULU DALEY MD Report ??Date: 05/20/2012 15:33 By the signature above, the attending physician certifies that he/she has personally conducted a gross and/or microscopic examination of the described specimens and rendered or confirmed the above diagnosis. Specimen(s) Received: A. ?Polyp cecum bx (#1) B. ? Prox trans colon polyp x 20 cm (#2) C. ? 20 cm polyp, snare (#3) D. ? 18 cm polyp (#4) Clinical History: ? Colonoscopycecum Gross Description: ? Received in formalin labelled Haley Whitlock and #1polyp cecum bx are three light loza biopsies which vary in size from 0.2 x 0.2 x 0.2 cm up to 0.3 x 0.3 x 0.2 cm. ??The specimens are submitted intact as (A). Received in formalin labelled Haley Whitlock and #2prox trans colon polyp is a 0.2 x 0.2 x 0.2 cm light loza biopsy. ??The specimen is submitted intact as (B). Received in formalin labelled Haley Whitlock and #3polyp sigmoid 20 cm is a light loza biopsy measuring 0.3 x 0.3 x 0.1 cm. ??The specimen is submitted intact as (C). Received in formalin labelled Haley Whitlock and #4polyp 18 cm sigmoid is a red-brown polypoid structure measuring 0.7 x 0.6 x 0.3 cm. ??The margin of the specimen is inked black and the specimen is trisected and submitted entirely as (D). ??(Brittny Patterson)/[facility] End of Report [facility] 05/13/2012 05/14/2012 10: 15 EDT us Chalo Camilo MD PATHOLOGY ORDERABLES Final Resul t [facility] [address] [place] [address] documented in this encounter Visit Diagnoses Not on filedocumented in this encounter Care Teams Waste Disposal Leakage Tester Relationship Specialty Start Date End Date Nini Machado MD 79 [facility] 3 [place] [address] PCP - General 01/26/10 documented as of this encounter
--- OUTSIDE RECORDS SUMMARY | 2024-08-27 00:44 | XMS_ITS | Encounter Summary ---
Author Organization [facility] Address [address] [place] [address] Care Team Providers Care Cell Cleaner Name Role Phone Unavailable Primary Care Provider Unavailabl e Encounter Details Date Type Department Care Team (Late st Contact Info) Description 01/23/2010 11:51 EDT - 01/23/2010 11:52 EDT Hospital Encounter [facility] - Other [address] [place] [address] Nini Machado MD [address] [place] [address],[facility] 3 [place], [place] [id number] Discharge Disposition: Home-Health Care Svc Social History Tobacco Use Types Packs/Day Years Used Date Smoking Tobacco: Never Assessed Comments Unknown Sex and Gender Information Value Date Recorded Sex Assigned at Not on file Legal Sex Female 18:40 EST Gender Identity Not on file Sexual Orientation Not on file documented as of this encounter Discharge Disposition Disposition Code Departure Means Destination Home-Health Care Svc documented in this encounter Plan of Treatment Not on file documented as of this encounter Visit Diagnoses Not on filedocumented in this encounter
--- OUTSIDE RECORDS SUMMARY | 2024-08-27 00:44 | XMS_ITS | Encounter Summary ---
Author Organization [facility] Address [facility] [place] [address] Care Team Providers Care Coil Binder Name Role Phone Nini Machado MD Primary Care Provider [phone] Reason for Referral * Consultation (Urgent) - Authorized Specialty Diagnoses / Procedures Referred By Aldo sotelo Referred To Contact General Surgery Diagnoses Mass of colon LIKELY MALIGNANT MASS (PET) SEE COLO REPORT. SEES DR. EPPS FOR SMALL CELL LUNG CANCER IN REMISSION Nini Machado MD [address] [address] Raven Alvarado MD [facility] [place] [address] Referral ID Status Reason Start Date Expiration Date Visits Requested Visits Authorized [id number] Authorized Consult, Test & Treat PCP Updated and/or Approved 08/13/2024 08/13/2025 6 6 Encounter Details Date Type Department Care Team (Late st Contact Info) Description 08/17/2024 Transcribe Orders eDH Incoming Referrals [phone] Nini Machado MD 79 [facility] 3 [place] [address] Mass of colon Social History Tobacco Use Types Packs/Day Years Used Date Smoking Tobacco: Former Cigarettes 1 42 0 03/11/1979 - 03/11/2021 Smokeless Tobacco: Never Comments:vaping several x/da y Alcohol Use Standard Drinks/Week Comments Never 0 (1 standard drink = 0.6 oz pur e alcohol) Overall Financial Resource Strain (CARDIA) Answe r Date Recorded How hard is it for you to pa y for the very basics like food, housing, medical care, and heating? Not very hard 06/20/2021 Hunger Vital Sign Answer Date Recorded Within the past 12 months, y ou worried that your food would run out before you got the money to buy more. Never true 06/20/20 21 Within the past 12 months, t he food you bought just didn't last and you didn't have money to get more. Never true 06/20/2021 PRAPARE - Transportation Answer Date Re corded In the past 12 months, has l ack of transportation kept you from medical appointments or from getting medications? Yes 06/04 In the past 12 months, has l ack of transportation kept you from meetings, work, or from getting things needed for daily living? No 06/20/2021 Housing Stability Vital Sign Answer Eduardo e Recorded In the last 12 months, was t here a time when you were not able to pay the mortgage or rent on time? No 06/20/2021 In the last 12 months, how many places have you lived? 1 06/20/2021 In the last 12 months, was t here a time when you did not have a steady place to sleep or slept in a group home (including now)? No 06/20/2021 DH IPV Inpatient Questions Answer Date Recorded Does Anyone Try to Keep You From Having Contact with Others or Doing Things Outside Your Home? no 12/25/2023 Feels Threatened by Someone no 12/03 Feels Unsafe at Home or Work/School no 12/25/2023 Physical Signs of Abuse Present no 12/25/2023 Sex and Gender Information Value Date Recorded Sex Assigned at Not on file Gender Identity Not on file Sexual Orientation Not on file documented as of this encounter Plan of Treatment Upcoming Encounters Date Type Department Care Team (Late st Contact Info) Description 08/30/2024 2:00 PM EST Office Visit Hematology/Oncology at [address] [phone] Mars Epps MD [facility] [address] [place] [address] Cailin Marrero APRN [address] [place] [address] DR [place]EM[place] [address] 09/07/2024 9:00 AM EST Office Visit General Surgery at [place] [phone] Raven Alvarado MD [facility] DR GENER[place] [address] 10/04/2024 1:15 PM EST Office Visit Neurology at [place] [phone] Feliciano Shay, [facility] DR NEUROLOGY [place] [address] Scheduled Referrals Name Type Priority Associated Diagnoses Orde r Schedule Referral to General Surgery Outpatient Referral Urgent Mass of colon Ordered: 08/17/2024 documented as of this encounter Visit Diagnoses Diagnosis Mass of colon Other specified disorder of intestines documented in this encounter Care Teams Coil Binder Relationship Specialty Start Date End Date Marco Antonio-Nini Landrum MD 79 [facility] 3 [place], [place] [phone] PCP - General 06/26/10 documented as of this encounter
--- OUTSIDE RECORDS SUMMARY | 2024-08-27 00:44 | XMS_ITS | Encounter Summary ---
Author Organization [facility] Address [address] [place] [address] Care Team Providers Care Rv Service Technician Name Role Phone Nini Machado MD Primary Care Provider [phone] Encounter Details Date Type Department Care Team (Late st Contact Info) Description 02/12/2016 Results Only [facility]- [facility] [phone] Michael Bah MD [address] [place] [address] Social History Tobacco Use Types [...] Procedure Name Priority Date/Time Associated Diagnosis Comments CYTOPATHOLOGY Routine 02/12/2016 0:00 EDT documented in this encounter Results * CYTOPATHOLOGY (02/12/2016 0:00 EDT) Pathology Report: CYTOPATHOLOGY REPORT Reports generated via electronic interface contain original data; however they are lacking the format of the original report. Caution should be taken when reading/interpret ing unformatted reports. Name: ? HALEY WHITLOCK ? Accession #: ? [id number] : ? 1955 (Age: 60) ??F ?Collect Date: ? 02/12/2016 Location: ? [facility] ? Receive Date: ? 02/15/2016 Provider: ? MICHAEL BAH MD Copy to: ? CYTOLOGIC DIAGNOSIS: URINE, BARBOTAGE, CYTOLOGIC EVALUATION: - ??No malignant cells identified. - ??Scantly cellular specimen composed of few groups of reactive urothelial cells with an abundance of obscuring lubricant material. See comment. ? COMMENT: Sample may not be client representative due to limited number of urothelial cells and an abundance of obscuring lubricant. Clinical correlation is suggested. Dr. Arvizu 02/15/2016 11:40 AM Document reviewed and electronically signed by: ? ERENDIRA ARVIZU MD Report Date: ??02/15/2016 12:34 By the signature above, the attending physician certifies that he/she has personally conducted a gross and/or microscopic examination of the described specimens and rendered or confirmed the above diagnosis. Specimen Type: ? Urine, Barbotage Clinical History: ? Hematuria; tiny papillary bladder lesion on cysto. clinical diagnosis code: R31.2. ? Gross Description: ? 70ccs of clear yellow fluid (Cytolyt added) were received and processed by selective cellular enhancement technique. ? End of Report [facility] 02/12/2016 02/15/2016 7:0 0 EDT us Michael Bah MD PATHOLOGY ORDERABLES Final R esult [facility] [address] [place] [address] documented in this encounter Visit Diagnoses Not on filedocumented in this encounter Care Teams Rv Service Technician Relationship Specialty Start Date End Date Nini Machado MD [address],[facility] 3 [place] [address] PCP - General 01/26/10 documented as of this encounter
--- OUTSIDE RECORDS SUMMARY | 2024-08-27 00:44 | XMS_ITS | Encounter Summary ---
Author Organization [facility] Address [facility] [place] [address] Care Team Providers Care Director Shopper Marketing Name Role Phone Nini Machado MD Primary Care Provider [phone] Encounter Details Date Type Department Care Team (Latest Contact Info) Description 05/24/2024 Travel Social History Tobacco Use Types Packs/Day Years [...] place to sleep or slept in a jail (including now)? No 06/20/2021 IPV Inpatient Questions Answer Date Recorded Does [...] 2:00 PM EST Office Visit Hematology/Oncology at [address] [phone] Mars Conley MD [facility] [place] [address] Cailin Marrero APRN [address] [place] [address] DR [place]EM[place]OLOGY [place] [address] 09/07/2024 9:00 AM EST Office [place] [phone] Raven Alvarado MD [facility] [place] [address] 10/04/2024 1:15 PM EST Office [place] [phone] Feliciano Shay, [facility] [place] [address] documented as of this encounter Visit Diagnoses Not on filedocumented in this encounter Care Teams Director Shopper Marketing Relationship Specialty Start Date End Date Marco Antonio-Nini Landrum MD [address] [address] PCP - General 06/26/10 documented as of this encounter
--- OUTSIDE RECORDS SUMMARY | 2024-08-27 00:44 | XMS_ITS | Encounter Summary ---
Author Organization Health system Address [address] [place] [address] Care Team Providers Care Fitness Professional Name Role Phone Nini Machado MD Primary Care Provider Encounter Details Date Type Department Care Team (Late st Contact Info) Description 02/25/2007 Results Only [facility] [place] [facility] [place] conversion [address] [place] [address] Nini Machado MD [address] [place] [address],[facility] 3 [place] [address] Social History Tobacco Use Types [...] Priority Date/Time Associated Diagnosis Comments CYTOPATHOLOGY Routine 02/25/2007 0:00 EDT documented in this encounter Results * CYTOPATHOLOGY (02/25/2007 0:00 EDT) Pathology Report: CYTOPATHOLOGY REPORT Reports generated via electronic interface contain original data; however they are lacking the format of the original report. Caution should be taken when reading/interpreti ng unformatted reports. Name: ? HALEY WHITLOCK ? Accession #: ? [id number] : ? 1955 (Age: 51) ??F ?Collect Date: ? 02/25/2007 Location: ? [facility] ? Receive Date: ? 02/26/2007 Provider: ?NINI MACHADO MD Copy to: ? Specimen/Source: ?ThinPrep Pap Test, Cervix/Endocervix, processed on [employer] ThinPrep Imaging System, with manual evaluation Last Menstrual Period: ? Menstrual/Pregnanc y Status: ? Post Menopausal Previous Gynecologic Pathology: ? ASC-US Other: ? Additional clinical information: HPV - HPVA - HPV testing requested if ASC-US on the current ThinPrep Pap test. ? SPECIMEN ADEQUACY ? Satisfactory for Evaluation - transformation zone component present GENERAL CATEGORIZATION ? Epithelial Cell Abnormality INTERPRETATION ? Squamous Cell Abnormality - Low grade squamous intraepithelial lesion (LSIL). EDUCATIONAL NOTES/RECOMMENDATI ONS ? [facility] recommends following the 2001 Consensus Guidelines for the Management of Women with Cervical Cytological Abnormalities (HIGINIO,2002;287:212 0-9). Management algorithms have been distributed by [facility] and are available online at www.ASCCP.org. ? Document reviewed and electronically signed by: ? Emmett Bradford MD ? Report Date: ??03/04/2007 18:02 End of Report [facility] 02/25/2007 02/26/2007 us Nini Machado MD PATHOLOGY ORDERABLES Final R esult [facility] [address] [place] [address] documented in this encounter Visit Diagnoses Not on filedocumented in this encounter Care Teams Fitness Professional Relationship Specialty Start Date End Date Nini Machado MD [address],[facility] 3 [place] [phone] PCP - General 01/26/10 documented as of this encounter
--- OUTSIDE RECORDS SUMMARY | 2024-08-27 00:44 | XMS_ITS | Encounter Summary ---
Author Organization [facility] [place] [address] Care Team Providers Care Core Baker Name Role Phone Nini Machado MD Primary Care Provider [phone] Reason for Visit * Diagnostic Test (Routine) - Closed Specialty Diagnoses / Procedures Referred By Aldo sotelo Referred To Contact Radiology Diagnoses Small cell carcinoma of lung Ataxia Procedures NM PET CT Skull Base to Mid-thigh Mars Conley MD [facility] DR [place] [address] [place] [address] Referral ID Status Reason Start Date Expiration Date V isits Requested Visits Authorized [id number] Closed Specialty Service Requested 05/04/2024 11/02/2025 1 1 Encounter Details Date Type Department Care Team (Late st Contact Info) Description 05/24/2024 8:07 AM EDT - 05/24/2024 11:59 PM EDT Hospital Encounter [place] [address] Mars Conley MD [facility] DR [place] [address] Discharge Disposition: Home Social History Tobacco Use Types Packs/Day Years [...] place to sleep or slept in a assisted (including now)? No 06/20/2021 DH IPV Inpatient [...] on file documented as of this encounter Medications at Time of Discharge Medication Sig Dispensed Refills Start Date End Date metoproloL tartrate (Lopressor) 25 mg tablet Take 1/2 tablet by mouth twice a day for blood pressure and heart 04/26/2024 prednisoLONE acetate (Pred Forte) 1 % Drops, Suspension Place 1 drop into the right eye 4 times daily. moxifloxacin (Vigamox) 0.5 % Drops Place 1 drop into the right eye 3 times daily. UNABLE TO FIND as needed. Thelma sertraline (Zoloft) 50 mg Tablet Take 50 mg by mouth daily. Ventolin HFA 90 mcg/actuation HFA Aerosol Inhaler inhale 2 puffs USING INHALER EVERY 4 HOURS NEEDED 03/07/2021 estradioL (ESTRACE) 0.01 % (0.1 mg/gram) Cream PRN: 7days prior to pap smear 04/19/2011 EPINEPHrine 0.3 mg/0.3 mL Auto-Injector EPIPEN 2-GIOVANNA 0.3 MG/0.3ML SOAJ 11/02/2013 pravastatin (Pravachol) 20 mg Tablet take 1 tablet by mouth once daily for cholesterol 03/30/2021 albuteroL (Proventil) 2.5 mg /3 mL (0.083 %) Solution for Nebulization ALBUTEROL SULFATE (2.5 MG/3ML) 0.083% NEBU 06/12/2018 montelukast (Singulair) 10 mg Tablet Take 10 mg by mouth nightly. 01/29/2021 documented as of this encounter Plan of Treatment Upcoming Encounters Date Type Department Care Team (Late st Contact Info) Description 08/30/2024 2:00 PM EST Office Visit Hematology/Oncology at [address] [phone] Mars Conley MD [facility] DR [place] [address] Cailin Marrero APRN [address] [place] [address] DR [place] [address] 09/07/2024 9:00 AM EST Office Visit [place] [address] Raven Alvarado MD [facility] [place] [address] 10/04/2024 1:15 PM EST Office [place] [address] Feliciano Shay, [facility] [place] [address] documented as of this encounter Procedures Procedure Name Priority Date/Time Associated Diagnosis Comments NM PET CT SKULL BASE TO MID-THIGH ([facility]) Routine 05/24/2024 9:44 AM EDT Small cell carcinoma of lung Ataxia POC, GLUCOSE Routine 05/24/2024 8:18 AM EDT documented in this encounter Results * POC, GLUCOSE (05/24/2024 8:18 AM EDT) Glucometer, POC 132 65 - 199 mg/dL 05/24/2024 8:19 AM EDT [facility] Comment:Supplemental ranges: <140 mg/dL before meals <180 mg/dL all other times of the day. Blood CAPILLARY BLOOD / Unknown 05/24/2024 8:18 AM EDT 05/24/2024 8:19 AM EDT Mars Conley MD POINT OF CARE TEST O RDERABLES [facility] [place] [address] documented in this encounter Visit Diagnoses Not on filedocumented in this encounter Care Teams Core Baker Relationship Specialty Start Date End Date Nini Machado MD 79 [facility] 3 [place] [address] PCP - General 06/26/10 documented as of this encounter
--- OUTSIDE RECORDS SUMMARY | 2024-08-27 00:44 | XMS_ITS | Encounter Summary ---
Author Organization [facility] Address [address] [place] [id number] Care Team Providers Care Cafe Operator Name Role Phone Nini Machado MD Primary Care Provider Encounter Details Date Type Department Care Team (Late st Contact Info) Description 09/07/2014 Results Only [facility] - [facility] [place] [place] [address] [place] [address] Nini Machado MD [address] [place] [address],[facility] [address] [place] [address] Social History Tobacco Use Types [...] Procedure Name Priority Date/Time Associated Diagnosis Comments PAP TEST- RESULT ONLY Routine 09/07/2014 0:00 EST documented in this encounter Results * PAP TEST- RESULT ONLY (09/07/2014 0:00 EST) Pathology Report: CYTOPATHOLOGY REPORT Reports generated via electronic interface contain original data; however they are lacking the format of the original report. Caution should be taken when reading/interpreti ng unformatted reports. Name: ? HALEY WHITLOCK ? Accession #: ? [id number] ? : ? 1955 (Age: 58) ??F ?Collect Date: ? 09/07/2014 ? Location: ? [facility] ? Receive Date: ? 09/09/2014 ? Provider: NINI MACHADO MD Copy to: ? Final Report SPECIMEN ADEQUACY ? Satisfactory for Evaluation - transformation zone component present GENERAL CATEGORIZATION ? Negative for Intraepithelial Lesion or Malignancy ?? Last Menstrual Period: 2000 Hormonal/Contracep tive status: Yes: Estrace cream Previous Gynecologic Pathology: LSIL: Hx 2007, NILM ??& HPV neg since Specimen/Source: ??Pap Test, Cervix/Endocervix, ThinPrep Imaging System with manual evaluation Document reviewed and electronically signed by: ? Marina Aquino, TEZ(ASCP) ? Report ??Date: 09/21/2014 14:30 HPV with Pap Test ? Date Ordered: ? 09/21/2014 ? Status: ?? Signed Out ?Date Complete: ? 09/23/2014 ? By: ??System Interface ? Date Reported: ? 09/23/2014 ? Interpretation RESULT: Negative for HPV. No E6 or E7 mRNA is detected from HPV types 16,18,31,33,35, 39,45,51,52,56,58, 59,66, and 68 by stations superintendent mediated amplification. Comments Document reviewed and electronically signed by: ? System Interface ? Report date: 09/23/2014 By the signature above, the attending physician certifies that he/she has personally conducted a gross and/or microscopic examination of the described specimens and rendered or confirmed the above diagnosis. End of Report [facility] 09/07/2014 09/09/2014 us Nini Machado MD PATHOLOGY ORDERABLES Final R esult [facility] [address] [place] [address] documented in this encounter Visit Diagnoses Not on filedocumented in this encounter Care Teams Cafe Operator Relationship Specialty Start Date End Date Nini Machado MD [address] [facility] [address] [place] [address] PCP - General 01/26/10 documented as of this encounter
--- OUTSIDE RECORDS SUMMARY | 2024-08-27 00:44 | XMS_ITS | Encounter Summary ---
Author Organization [facility] [place] [address] Care Team Providers Care Lab Systems Analyst Name Role Phone Nini Machado MD Primary Care Provider [phone] Reason for Referral * Diagnostic Test (Routine) - Authorized Specialty Diagnoses / Procedures Referred By Aldo sotelo Referred To Contact Radiology Diagnoses Small cell carcinoma of lung, unspecified laterality, unspecified part of lung Procedures CT Chest Abdomen Pelvis w Contrast (Generic) Mars Conley MD [facility] [place] [address] [facility] [place] [address] Referral ID Status Reason Start Date Expiration Date Visits Requested Visits Authorized [id number] Authorized Specialty Service Requested 4 11/29/2025 1 1 Encounter Details Date Type Department Care Team (Late st Contact Info) Description 05/31/2024 11:00 AM EDT Office Visit Hematology/Oncology at [address] [phone] Mars Conley MD [facility] [place] [address] Cailin Marrero APRN [address] [place] [address] DR HEMATOLOGY [place] [address] Small cell carcinoma of lung, unspecified laterality, unspecified part of lung; Ataxia Social History Tobacco Use Types Packs/Day Years [...] place to sleep or slept in a usp (including now)? No 06/20/2021 DH IPV Inpatient [...] on file documented as of this encounter Last Filed Vital Signs Vital Sign Reading Time Taken Comments Blood Pressure 111/54 05/31/2024 11:06 AM EDT Pulse 82 05/31/2024 11:06 AM EDT Temperature 36.2 ??C (97.1 ??F) 05/31/2024 11:06 AM E DT Respiratory Rate 18 05/31/2024 11:06 AM EDT Oxygen Saturation 93% 05/31/2024 11:06 AM EDT Inhaled Oxygen Concentration - - Weight 69.9 kg (154 lb 3.2 oz) 05/31/2024 11:06 AM EDT Height 165.1 cm (5' 5) 05/31/2024 11:06 AM EDT Body Mass Index 25.66 05/31/2024 11:06 AM EDT documented in this encounter Progress Notes * Mars Conley MD - 05/31/2024 11:00 AM EDT Images from the original note were not included. Hematology & [place] [address] Stefanie returns to clinic today for evaluation of her small cell lung cancer. ASSESSMENT AND PLAN: Stefanie Pina is a 68 y.o. former smoker diagnosed with limited stage small cell lung cancer as detailed below. She began treatment with carboplatin (due to hearing loss) and etoposide on 07.04.21. Admitted with diverticulitis on 07.17.21 though recovered. She completed concurrent BID radiation on 08/24/21 and her 4th cycle of systemic therapy on 09.25.21. She has recovered well from treatment. Good response on her restaging CT scan as below. MRI brain without metastatic disease. She then received hippocampal avoidant WBRT PCI in 12/2021. Plan: # Progressive Neurological deficits - Was very concerned about paraneoplastic syndrome such as paraneoplastic cerebellar degeneration or potentially leptomeningeal disease. Imaging evaluation was unrevealing for recurrence including recent PET scan which I personally reviewed. Had LP with cytology and while the protein was sl elevated everything else was negative including CSF paraneoplastic panel. Clinically she actually seems to be improving with less gait disturbance/ataxia. In discussing itfurther she does relate that's her sx started 24 hours after she had received the RSV vaccine. While the sx don't seem classic for GBS do wonder if this was a related neurological syndrome that is now resolving. I called and spoke with Dr. Machado her PCP as well. She has already placed a neuro referral to [facility] though it has not been scheduled. Given the unrevealing malignancy evaluation with imaging and CSF at this point will shift back to routine surveillance - Labs and CT scan in ~3 months. MRI after that - Noted the uptake on her PET scan in the cecum. PCP related that she had 2022 colonoscopy that showed a tiny polyp so would be surprised if this was a significant finding but she'll plan for anotherer colonoscopy in the coming months # Chronic back pain - well managed with MJ gummies. No longer using opiates. # R hip pain/ arthritis - being managed by her PCP # Bowel thickening involving cecum noted on PET scan from her original diagnosis and on recent CT scan Mars Conley MD, MS 05/31/2024 Medical Oncology & Hematology [facility] CC: Nini Machado MD Interval History/Subjective: Neurological sx are lessening Underwent LP and PET scan recently. Thinks her symptoms are actually improving. She related today that she notes some issues that she noted onset of weakness the day after her RSV She does not want to see a neurologist. Plans not to get vaccines. Using the walker but better overall. No more falls No weight loss Breathing is stable. Not using the 2. . Her chronic pain is fairly well controlled with her MJ gummies PRN at this point- not using the opioids. No belly pain No fevers no infections Oncology Overview: Cancer Staging Small cell carcinoma of lung Staging form: Lung, AJCC 8th Edition - Clinical stage from 06/20/2021: cT0, cN2, cM0 - Signed by Juan Fitzpatrick MD on 06/20/2021 Presentation: 65 year old with 40+ pk year smoking hx (quit March 2021) found to have an enlarged subcarinal lymph node on lung cancer screening CT scan Staging/PreTx Eval: 05.28.21 CT Chest (screening) I S: Interval subcarinal lymph node enlargement versus new subcarinal mass, indeterminate etiology. Appears amenable to transbronchoscopic biopsy. Referral to shirrer advised. 06.06.21 CT Abdomen Pelvis 1. .No nephrolithiasis, or evidence of renal/collecting system malignancy. 2. Slight interval increase in prominence of a dilated common bile duct, 12 mm in diameter. 06.11.21 MRI Brain - No metastatic disease seen 06.18.21 PET scan IMPRESSION 1. A 2.4 cm highly FDG avid necrotic appearing leonardo mass in the subcarinal region and small FDG avid adenopathy in the right hilar and right lower paratracheal regions. Findings are consistent with biopsy-proven small cell lung cancer. 2. Indeterminate CT visualized subcentimeter opacity in the superior left lower lobe, unchanged compared to recent CT of 05/28/2021 but not present on CT of 04/14/2020. Attention on follow-up is recommended. 3. CT visualized sub-5 mm nodules in the bilateral apex as detailed above, unchanged dating back to CT of 04/14/2020. Continued attention on follow-up. 4. Unexpected finding. FDG avid lesion in the wall of the cecum where there is a suggestion of soft tissue thickening on noncontrast CT. This is highly suspicious for a premalignant versus malignant colonic neoplasm. Direct visualization recommended. 07.17.21 CT Abdomen 1. Acute uncomplicated sigmoid diverticulitis. 2. Ancillary findings as above. 07.24.21 CT Chest Small residual subcarinal soft tissue mass versus lymph node. No new findings. 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 The immunoperoxidase stain results support the diagnosis Molecular Data: NA Treatment Course: 07.04.21 C1D1 Carboplatin/Etoposide 07.17.21 Admitted to [facility] with abdominal pain and found to have acute uncomplicated diverticulitis. Treated with abx and discharged on 1..22 C2 with concurrent BID radiation ending 08.24.21 45 Gy in 30 fractions 08.29.21 C3 09.25.21 C4 PCI- hippocampal avoidant WBRT 08/29/2021 12:32 PM 08/30/2021 9:39 AM 08/31/2021 10:14 AM 09/24/2021 2:28 PM 09/24/2021 3:07 PM 09/25/2021 10:02 AM 09/26/2021 10:13 AM ONCBCN ONCOLOGY (AMB) Day, Cycle Day 2, Cycle 3 Day 3, Cycle 3 Day 1, Cycle 4 Day 2, Cycle 4 Day 3, Cycle 4 CARBOplatin (Paraplatin) IV 412 mg etoposide 20 mg/mL (Vepesid) IV 100 mg/m2/dose = 165 mg 100 mg/m2/dose = 165 mg 100 mg/m2/dose = 165 mg 100 mg/m2/dose = 165 mg 100 mg/m2/dose = 165 mg 100 mg/m2/dose = 165 mg Allergies Allergen Reactions Aspirin CIS - Anaphylaxis Nitrofurantoin Monohyd/M-Cryst Other reaction(s): hands tingling, pins and needles, face swollen. Nsaids (Non-Steroidal Anti-Inflammatory Drug) Other reaction(s): Shock / Unconsciousness; Penicillins Other reaction(s): Dermatological problems, e.g., rash, hives; Says cefs are ok Red Blood Cells Other (See Comments) Antibodies-Difficult to Crossmatch DO NOT REMOVE Please contact the Blood Bank at [phone] for questions. Sulfamethoxazole-Trimethoprim Other reaction(s): Respiratory problems, e.g., wheezing;Dermatological problems, e.g., rash, hives; Methadone Other reaction(s): vomiting Mold Extracts Mushroom Flavor PHYSICAL EXAMINATION: Wt Readings from Last 3 Encounters: 05/31/24 69.9 kg (154 lb 3.2 oz) 05/03/24 69.9 kg (154 lb 3.2 oz) 12/25/23 68 kg (150 lb) Temp Readings from Last 3 Encounters: 05/31/24 36.2 ??C (97.1 ??F) (Temporal) 05/03/24 36.2 ??C (97.1 ??F) (Temporal) 12/25/23 35.9 ??C (96.6 ??F) (Temporal) BP Readings from Last 3 Encounters: 05/31/24 111/54 05/03/24 126/67 12/25/23 109/70 Pulse Readings from Last 3 Encounters: 05/31/24 82 05/03/24 88 12/25/23 83 Physical Exam BP 111/54 (Patient Position: Sitting) Pulse 82 Temp 36.2 ??C (97.1 ??F) (Temporal) Resp 18 Ht 165.1 cm (5' 5) Wt 69.9 kg (154 lb 3.2 oz) SpO2 93% BMI 25.66 kg/m?? Constitutional: Oriented to person, place, and time. Appears well-developed. No distress.She dyedpart of her hair purple Mouth/Throat: Wearing a mask. Eyes: No conjunctival icterus. Cardiovascular: Regular rate and regular rhythm. Exam reveals no friction rub. No murmur heard. Pulmonary/Chest: Normal respiratory effort. Lung clear to ascultation bilaterally. No wheezes or rales. Abdominal: +BS. Soft. No distension. No tenderness. No rebound. Musculoskeletal: Generally normal strength UE and LE. Normal range of motion. No edema. Lymphadenopathy: No cervical adenopathy. Neurological: Alert and oriented to person, place, and time. Grossly non-focal. Skin: Skin is warm and dry. No rash noted. No erythema. Psychiatric: Normal mood and affect. Thought content normal. Neuro: + ataxia gait. + Romberg 4+/5 LE strength b;l. 5/5 UE strength. 2+ symmetrical ptellar DTRS Data Review: Labs: [facility] Result (December) SEE COMMENTS Comment: Test Result Flag Unit RefValue Movement, Autoimm/Paraneo, CSF Movement Disorder Interp, CSF SEE COMMENTS No informative autoantibodies were detected in this evaluation. However, a negative result does not exclude an autoimmune movement disorder. Sensitivity is enhanced by testing both serum and CSF. IFA Notes None. AMPA-R Ab CBA, CSF Negative Negative ADDITIONAL INFORMATION This test was developed and its performance characteristics determined by [facility] in a manner consistent with CLIA requirements. This test has not been cleared or approved by the U.S. Food and Drug Administration. Amphiphysin Ab, CSF Negative Negative ADDITIONAL INFORMATION This test was developed and its performance characteristics determined by [facility] in a manner consistent with CLIA requirements. This test has not been cleared or approved by the U.S. Food and Drug Administration. AGNA-1, CSF Negative Negative ADDITIONAL INFORMATION This test was developed and its performance characteristics determined by [facility] in a manner consistent with CLIA requirements. This test has not been cleared or approved by the U.S. Food and Drug Administration. JENNY-1, CSF Negative Negative ADDITIONAL INFORMATION This test was developed and its performance characteristics determined by [facility] in a manner consistent with CLIA requirements. This test has not been cleared or approved by the U.S. Food and Drug Administration. JENNY-2, CSF Negative Negative ADDITIONAL INFORMATION This test was developed and its performance characteristics determined by [facility] in a manner consistent with CLIA requirements. This test has not been cleared or approved by the U.S. Food and Drug Administration. JENNY-3, CSF Negative Negative ADDITIONAL INFORMATION This test was developed and its performance characteristics determined by [facility] in a manner consistent with CLIA requirements. This test has not been cleared or approved by the U.S. Food and Drug Administration. AP3B2 IFA, CSF Negative Negative ADDITIONAL INFORMATION This test was developed and its performance characteristics determined by [facility] in a manner consistent with CLIA requirements. This test has not been cleared or approved by the U.S. Food and Drug Administration. CASPR2-IgG CBA, CSF Negative Negative ADDITIONAL INFORMATION This test was developed and its performance characteristics determined by [facility] in a manner consistent with CLIA requirements. This test has not been cleared or approved by the U.S. Food and Drug Administration. CRMP-5-IgG Western Blot, CSF Negative Negative ADDITIONAL INFORMATION This test was developed and its performance characteristics determined by [facility] in a manner consistent with CLIA requirements. This test has not been cleared or approved by the U.S. Food and Drug Administration. DPPX Ab CBA, CSF Negative Negative ADDITIONAL INFORMATION This test was developed and its performance characteristics determined by [facility] in a manner consistent with CLIA requirements. This test has not been cleared or approved by the U.S. Food and Drug Administration. DAPHNE-B-R Ab CBA, CSF Negative Negative ADDITIONAL INFORMATION This test was developed and its performance characteristics determined by [facility] in a manner consistent with CLIA requirements. This test has not been cleared or approved by the U.S. Food and Drug Administration. GAD65 Ab Assay, CSF 0.00 nmol/L <= 0.02 ADDITIONAL INFORMATION This test was developed and its performance characteristics determined by [facility] in a manner consistent with CLIA requirements. This test has not been cleared or approved by the U.S. Food and Drug Administration. GFAP IFA, CSF Negative Negative ADDITIONAL INFORMATION This test was developed and its performance characteristics determined by [facility] in a manner consistent with CLIA requirements. This test has not been cleared or approved by the U.S. Food and Drug Administration. GRAF1 IFA, CSF Negative Negative ADDITIONAL INFORMATION This test was developed and its performance characteristics determined by [facility] in a manner consistent with CLIA requirements. This test has not been cleared or approved by the U.S. Food and Drug Administration. IgLON5 CBA, CSF Negative Negative ADDITIONAL INFORMATION This test was developed and its performance characteristics determined by [facility] in a manner consistent with CLIA requirements. This test has not been cleared or approved by the U.S. Food and Drug Administration. ITPR1 IFA, CSF Negative Negative ADDITIONAL INFORMATION This test was developed and its performance characteristics determined by [facility] in a manner consistent with CLIA requirements. This test has not been cleared or approved by the U.S. Food and Drug Administration. KLHL11 Ab CBA, CSF Negative Negative ADDITIONAL INFORMATION This test was developed and its performance characteristics determined by [facility] in a manner consistent with CLIA requirements. This test has not been cleared or approved by the U.S. Food and Drug Administration. LGI1-IgG CBA, CSF Negative Negative ADDITIONAL INFORMATION This test was developed and its performance characteristics determined by [facility] in a manner consistent with CLIA requirements. This test has not been cleared or approved by the U.S. Food and Drug Administration. mGluR1 Ab IFA, CSF Negative Negative ADDITIONAL INFORMATION This test was developed and its performance characteristics determined by [facility] in a manner consistent with CLIA requirements. This test has not been cleared or approved by the U.S. Food and Drug Administration. Neurochondrin IFA, CSF Negative Negative ADDITIONAL INFORMATION This test was developed and its performance characteristics determined by [facility] in a manner consistent with CLIA requirements. This test has not been cleared or approved by the U.S. Food and Drug Administration. NIF IFA, CSF Negative Negative ADDITIONAL INFORMATION This test was developed and its performance characteristics determined by [facility] in a manner consistent with CLIA requirements. This test has not been cleared or approved by the U.S. Food and Drug Administration. NMDA-R Ab CBA, CSF Negative Negative ADDITIONAL INFORMATION This test was developed and its performance characteristics determined by [facility] in a manner consistent with CLIA requirements. This test has not been cleared or approved by the U.S. Food and Drug Administration. PAINTER HELPER-Tr, CSF Negative Negative ADDITIONAL INFORMATION This test was developed and its performance characteristics determined by [facility] in a manner consistent with CLIA requirements. This test has not been cleared or approved by the U.S. Food and Drug Administration. PAINTER HELPER-1, CSF Negative Negative ADDITIONAL INFORMATION This test was developed and its performance characteristics determined by [facility] in a manner consistent with CLIA requirements. This test has not been cleared or approved by the U.S. Food and Drug Administration. PAINTER HELPER-2, CSF Negative Negative ADDITIONAL INFORMATION This test was developed and its performance characteristics determined by [facility] in a manner consistent with CLIA requirements. This test has not been cleared or approved by the U.S. Food and Drug Administration. PDE10A Ab IFA, CSF Negative Negative ADDITIONAL INFORMATION This test was developed and its performance characteristics determined by [facility] in a manner consistent with CLIA requirements. This test has not been cleared or approved by the U.S. Food and Drug Administration. Septin-5 IFA, CSF Negative Negative ADDITIONAL INFORMATION This test was developed and its performance characteristics determined by [facility] in a manner consistent with CLIA requirements. This test has not been cleared or approved by the U.S. Food and Drug Administration. Septin-7 IFA, CSF Negative Negative ADDITIONAL INFORMATION This test was developed and its performance characteristics determined by [facility] in a manner consistent with CLIA requirements. This test has not been cleared or approved by the U.S. Food and Drug Administration. TRIM46 Ab IFA, CSF Negative Negative Specimen Source Cerebrospinal Fluid, Lumbar Puncture Final Diagnosis Negative for malignancy Component Ref Range & Units 3 wk ago Protein, CSF 15 - 45 mg/dL 61 High Xanthochromatic, CSF Negative Negative 05/24/24 PET sca IMPRESSION 1. Focal intense uptake in the cecum, greater than expected for background physiological uptake. Recommend correlation with colonoscopy. 2. Focally increased uptake at the GE junction is probably inflammatory, less likely neoplastic. 3. Otherwise, no suspicious uptake identified. 4. Uptake associated with mildly displaced lateral left rib 8 fracture, posttraumatic when correlated with provided clinical history. 04/29/24 MRI Brain COMPARISON: 06/11/2021, 10/13/2023, 04/21/2023, 10/14/2022 FINDINGS: There is a degree of generalized volume loss and ventriculomegaly. The ventricles are slightly larger than on the prior study. T2 signal alteration is present throughout the white matter both cerebral hemispheres, consistent with prior treatment. There is no intracranial mass, mass effect, or shift. There is no abnormal enhancement. Posterior fossa structures and craniocervical junction are unremarkable. Skull base and pituitary are normal. The major intracranial flow voids are normal. 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 IMPRESSION Posttreatment changes as above. No new metastatic lesion or other acute change. 04/26/24 CT C/A/P 1. Increased displacement of the left eighth rib fracture, with increased surrounding posttraumatic intercostal edema. 2. New small left pleural effusion. 3. Left lower lobe subsegmental atelectasis. 4. New linear band of airless lung within the right lower lobe, also likely atelectasis. 5. No evidence of metastatic disease. 6. Persistent abnormal bowel thickening involving the cecum, also FDG avid on 06/18/2021 PET/CT, concerning for colonic malignancy. Please correlate with prior colonoscopy. 7. Hepatic steatosis. 8. Diverticulosis. 04/22/24 MRI L spine FINDINGS: There is slight retrolisthesis of L4 on L5. Alignment is otherwise unremarkable. Followed terminale is somewhat thickened anteriorly hyperintense consistent with fatty filum. The conus is normal in appearance and terminates at the upper L1 level. Visualized retroperitoneal structures are unremarkable. There is no mass or abnormal enhancement. Findings at specific levels: L1-L2: No canal or foraminal stenosis. L2-L3: Slight disc bulging without canal or foraminal stenosis L3-L4: There is mild disc bulging with minimal caudal neuroforaminal narrowing. No canal stenosis L4-5: Disc bulge produces mild caudal neuroforaminal narrowing. There is minimal canal narrowing. L5-S1: There are mild facet degenerative changes without canal or foraminal stenosis. IMPRESSION No evidence of metastatic disease. Mild lumbar spine disc degenerative changes documented in this encounter Plan of Treatment Upcoming Encounters Date Type Department Care Team (Late st Contact Info) Description 08/30/2024 2:00 PM EST Office Visit Hematology/Oncology at [address] [phone] Mars Conley MD [facility] DR HEMATOLOGY [place] [address] Cailin Marrero APRN [address] [place] [address] DR HEMATOLOGY AND ONCOLOGY [place], [place] [id number] 09/07/2024 9:00 AM EST Office [place] [address] Raven Alvarado MD [facility] [place] [address] 10/04/2024 1:15 PM EST Office [place] [address] Feliciano Shay, [facility] [place] [address] Scheduled Orders Name Type Priority Associated Diagnoses Orde r Schedule CBC (with Diff) Lab STAT Small cell carcinoma of lung, unspecified laterality, unspecified part of lung Expected: 08/31/2024 (Approximate), Expires: 05/31/2025 Comprehensive metabolic panel Non-fasting Lab STAT Small cell carcinoma of lung, unspecified laterality, unspecified part of lung Expected: 08/31/2024 (Approximate), Expires: 05/31/2025 CT Chest Abdomen Pelvis w Contrast (Generic) Imaging Routine Small cell carcinoma of lung, unspecified laterality, unspecified part of lung Expected: 08/31/2024 (Approximate), Expires: 05/31/2025 CBC (with Diff) Lab STAT Small cell carcinoma of lung, unspecified laterality, unspecified part of lung Expected: 08/31/2024 (Approximate), Expires: 05/31/2025 Comprehensive metabolic panel Non-fasting Lab STAT Small cell carcinoma of lung, unspecified laterality, unspecified part of lung Expected: 08/31/2024 (Approximate), Expires: 05/31/2025 documented as of this encounter Visit Diagnoses Diagnosis Small cell carcinoma of lung, unspecified laterality, unspecified part of lung Ataxia Lack of coordination documented in this encounter Care Teams Lab Systems Analyst Relationship Specialty Start Date End Date Marco Antonio-Nini Landrum MD [phone] [address] PCP - General 06/26/10 documented as of this encounter
--- OUTSIDE RECORDS SUMMARY | 2024-08-27 00:44 | XMS_ITS | Encounter Summary ---
Author Organization [facility] Address [address] [place] [address] Care Team Providers Care School Age Program Teacher Name Role Phone Nini Machado MD Primary Care Provider Encounter Details Date Type Department Care Team (Late st Contact Info) Description 04/19/2011 12:05 EDT - 04/19/2011 12:07 EDT Hospital Encounter [address] [address] Nini Machado MD 79 [facility],[address] [phone] Discharge Disposition: Home or Self Care Social History Tobacco Use Types Packs/Day Years Used Date Smoking Tobacco: Never Assessed Comments Unknown Sex and Gender Information Value Date Recorded Sex Assigned at Not on file Legal Sex Female 18:40 EST Gender Identity Not on file Sexual Orientation Not on file documented as of this encounter Discharge Disposition Disposition Code Departure Means Destination Home or Self Care documented in this encounter Plan of Treatment Not on file documented as of this encounter Visit Diagnoses Not on filedocumented in this encounter Care Teams School Age Program Teacher Relationship Specialty Start Date End Date Nini Machado MD 79 [facility] 3 [place] [address] PCP - General 01/26/10 documented as of this encounter
--- OUTSIDE RECORDS SUMMARY | 2024-08-27 00:44 | XMS_ITS | Encounter Summary ---
Author Organization [facility] Address [address] [facility] [address] Care Team Providers Care R D Internship Name Role Phone Nini Machado MD Primary Care Provider [phone] Encounter Details Date Type Department Care Team (Late st Contact Info) Description 07/27/2024 Interpretation Only [facility] [address] [place] [phone] Oumar Edouard MD 11 [place] [address] Social History Tobacco Use Types Packs/Day Years [...] place to sleep or slept in a fdc (including now)? No 06/20/2021 IPV Inpatient Questions [...] 2:00 PM EST Office Visit Hematology/Oncology at [address] [phone] Mars Conley MD [facility] DR [place] [address] Cailin Marrero APRN [address] [place] [address] DR HEMATOLOGY [place] [address] 09/07/2024 9:00 AM EST Office [place] [address] Raevn Alvarado MD [facility] [place] [address] 10/04/2024 1:15 PM EST [place] [address] Feliciano Shay, [facility] [place] [address] documented as of this encounter Procedures Procedure Name Priority Date/Time Associated Diagnosis Comments XR CHEST ONE VIEW STAT 07/27/2024 10: 20 PM EST documented in this encounter Results * XR Chest One View (07/27/2024 10:20 PM EST) PT CLASS E RAD ADMITDTTM [id number] RAD PT RAD INFO [id number]^Potter ^Oumar RAD EXAM DESC XCXR1^XR Chest 1 View^RIS RAD WORKSTATION ID [id number] RAD Anatomical Region Laterality Modality Chest N/A Radiographic Mandi ging 07/27/2024 10:2 0 PM EST Impressions 07/27/2024 10:53 PM EST No acute cardiopulmonary process. Preliminary report signed by: Emmett Armenta MD at 07/27/2024 10:31 PM I have personally reviewed the image(s) and the resident's interpretation and agree with the findings, Santa Moreno MD at 07/27/2024 10:53 PM Thank you for letting us participate in the care of this patient. ??If you are a health care provider and have any questions regarding this report, please contact the number below. ??For patients who have questions please contact the health caretaker grounds that requested your imaging first. ? Electronically signed by: Santa Moreno MD, [facility] ([phone]), at 07/27/2024 10:53 PM Narrative 07/27/2024 10:53 PM EST EXAMINATION: XR Chest 1 View CLINICAL HISTORY: SOB TECHNIQUE: Upright portable AP view of the chest COMPARISON: CT chest 04/23/2024, chest radiograph 04/20/2024 FINDINGS: Normal cardiomediastinal silhouette and vascular markings. Aortic arch atherosclerotic calcifications. Lungs are clear. No pneumothorax or pleural effusion. Unchanged appearance of displaced lateral left eighth rib fracture. Chronic elevation right hemidiaphragm. Procedure Note Santa Moreno MD - 07/27/2024 EXAMINATION: XR Chest 1 View CLINICAL HISTORY: SOB TECHNIQUE: Upright portable AP view of the chest COMPARISON: CT chest 04/23/2024, chest radiograph 04/20/2024 FINDINGS: Normal cardiomediastinal silhouette and vascular markings. Aortic arch atherosclerotic calcifications. Lungs are clear. No pneumothorax or pleural effusion. Unchanged appearance of displaced lateral left eighth rib fracture.Chronic elevation right hemidiaphragm. IMPRESSION No acute cardiopulmonary process. Preliminary report signed by: Emmett Armenta MD at 07/27/2024 10:31 PM I have personally reviewed the image(s) and the resident's interpretationand agree with the findings, Santa Moreno MD at 07/27/2024 10:53 PM Thank you for letting us participate in the care of this patient. If youare a health care provider and have any questions regarding this report,please contact the number below. For patients who have questions please contactthe health caretaker grounds that requested your imaging first. Electronically signed by: Santa Moreno MD, [facility]([phone]), at 07/27/2024 10:53 PM Oumar Edouard MD IMG DX ORDERABLES documented in this encounter Visit Diagnoses Not on filedocumented in this encounter Care Teams R D Internship Relationship Specialty Start Date End Date Marco Antonio-Nini Landrum MD [address] [place] [address] PCP - General 06/26/10 documented as of this encounter
--- OUTSIDE RECORDS SUMMARY | 2024-08-27 00:44 | XMS_ITS | Referral Summary ---
Author Organization [facility] Address [address] [place] [address] Care Team Providers Care Impress Associate Name Role Phone Nini Machado MD Primary Care Provider Social History Tobacco Use Types Packs/Day Years Used Date Smoking Tobacco: Never Assessed Comments Unknown Sex and Gender Information Value Date Recorded Sex Assigned at Not on file Legal Sex Female 18:40 EST Gender Identity Not on file Sexual Orientation Not on file Plan of Treatment Not on file Care Teams Impress Associate Relationship Specialty Start Date End Date Nini Machado MD 79 [facility] 3 [place] [address] PCP - General 01/26/10
--- OUTSIDE RECORDS SUMMARY | 2024-08-27 00:44 | XMS_ITS | Encounter Summary ---
Author Organization [facility] Address [address] [place] [address] Care Team Providers Care Pit Inspector Name Role Phone Nini Machado MD Primary Care Provider Encounter Details Date Type Department Care Team (Latest Contact Info) Description 02/21/2016 8:50 EDT - 02/21/2016 23:59 EDT Hospital Encounter [address] [address] Unknown, Provider, MD Discharge Disposition: Home or Self Care Social [...] Code Departure Means Destination Home or Self Fpc documented in this encounter Plan of Treatment Not on file documented as of this encounter Visit Diagnoses Not on filedocumented in this encounter Care Teams Pit Inspector Relationship Specialty Start Date End Date Nini Machado MD 79 [facility] 3 [place] [address] PCP - General 01/26/10 documented as of this encounter
--- OUTSIDE RECORDS SUMMARY | 2024-08-27 00:44 | XMS_ITS | Encounter Summary ---
Author Organization [facility] [place] [address] Care Team Providers Care Garbage Pick Up Worker Name Role Phone Nini Machado MD Primary Care Provider [phone] Encounter Details Date Type Department Care Team (Late st Contact Info) Description 07/26/2024 6:00 PM EST Laboratory [place] [phone] Social History Tobacco Use Types Packs/Day Years [...] No 06/20/2021 Housing Stability Vital Sign Answer Eduarod e Recorded In the last 12 months, [...] place to sleep or slept in a [place] [facility] [place] (including now)? No 06/20/2021 IPV Inpatient Questions [...] 2:00 PM EST Office Visit Hematology/Oncology at [address] [phone] Mars Conley MD [facility] DR [place] [address] Cailin Marrero APRN [address] [place] [address] DR [place]EMATOLOGY [place] [address] 09/07/2024 9:00 AM EST Office [place] [address] Raven Alvarado MD [facility] [place] [place] [address] 10/04/2024 1:15 PM EST Office [place] [address] Feliciano Shay, [facility] [place] [address] documented as of this encounter Visit Diagnoses Not on filedocumented in this encounter Care Teams Garbage Pick Up Worker Relationship Specialty Start Date End Date Marco Antonio-Nini Landrum MD [address] [address] PCP - General 06/26/10 documented as of this encounter
--- OUTSIDE RECORDS SUMMARY | 2024-08-27 00:44 | XMS_ITS | Encounter Summary ---
Author Organization [facility] Address [address] [place] [address] Care Team Providers Care Automobile Technician Name Role Phone Nini Machado MD Primary Care Provider Encounter Details Date Type Department Care Team (Late st Contact Info) Description 04/03/2007 Results Only [facility] [address] [place] [address] Nini Machado MD [address] [place] [address],[facility] 3 [place] [address] Social History Tobacco Use Types [...] Date/Time Associated Diagnosis Comments SURGICAL PATHOLOGY Routine 04/03/2007 0:00 EDT documented in this encounter Results * SURGICAL PATHOLOGY (04/03/2007 0:00 EDT) Pathology Report: SURGICAL PATHOLOGY REPORT Reports generated via electronic interface contain original data; however they are lacking the format of the original report. Caution should be taken when reading/interpreting unformatted reports. Name: ? HALEY WHITLOCK ? Accession #: ? [id number] ? : ? 1955 (Age: 51) ??F ? Collect Date: ? 04/03/2007 ? Location: ? [facility] ? Receive Date: ? 04/07/2007 ? Provider: NINI MACHADO MD Copy to: ? Final Pathologic Diagnosis: ? Endocervix, curettage: 1. ?Detached fragments of squamous metaplasia with atrophy. 2. ? Acute and chronic cervicitis with reactive squamous changes. ??See comment. Comment: ? The referring Pap smear ([id number]) was reviewed and the low grade squamous intraepithelial lesion confirmed. ??No definitive squamous intraepithelial lesion was identified in the current specimen. ??P16 (JC8, [facility]) ??shows non-specific staining. ??MIB-1(Ki-67) (Rabbit Monoclonal (SP6), [facility]) shows a benign staining pattern (stains few cells). ??The immunohistochemical staining supports the morphologic impression of atrophy and reactive changes. ??Dr. Evelyn Corbett reviewed this case in consultation and concurs. ??(Dr. Briscoe)/mpl ? NOTE: ??One or more of the reagents used in immunohistochemical testing in this case may not have been cleared or approved by the U.S. Food and Drug Administration (FDA). ??The FDA has determined that such clearance or approval is not necessary. ??These tests are used for clinical purposes. ??They should not be regarded as investigational or for research. ??These reagents' ??performance characteristics have been determined by [facility]. ??This laboratory is certified under the Clinical Laboratory Improvement Amendments of 1988 (CLIA-88) as qualified to perform high complexity clinical laboratory testing. ?? Document reviewed and electronically signed by: DEXTER BRISCOE MD Report ??Date: 04/10/2007 12:35 By the signature above, the attending physician certifies that he/she has personally conducted a gross and/or microscopic examination of the described specimens and rendered or confirmed the above diagnosis. Specimen(s) Received: ? ECC Clinical History: ? LGSIL Pap without prior abnls; colpo with atrophic changes, but not adequate Gross Description: ? Received in formalin labelled Whitlock and ECC is a scant amount of loza-white tissue that is 0.4 x 0.3 x 0.2 cm in aggregate and is submitted intact in one cassette. ??(Dr. White)/[facility] End of Report [facility] 04/03/2007 04/07/2007 15: 15 EDT us Nini Machado MD PATHOLOGY ORDERABLES Final R esult [facility] [address] [place] [address] documented in this encounter Visit Diagnoses Not on filedocumented in this encounter Care Teams Automobile Technician Relationship Specialty Start Date End Date Nini Machado MD 79 [facility] 3 [place] [address] PCP - General 01/26/10 documented as of this encounter
--- OUTSIDE RECORDS SUMMARY | 2024-08-27 00:44 | XMS_ITS | Encounter Summary ---
Author Organization [facility] Address [address] [place] [address] Care Team Providers Care Balancing Machine Operator Name Role Phone Nini Machado MD Primary Care Provider [phone] Encounter Details Date Type Department Care Team (Late st Contact Info) Description 04/19/2011 Results Only [facility] - [facility] ([facility] [address] [place], [place] [phone] Nini Machado MD [address] [place] [address],[facility] 3 [place] [address] Social History Tobacco Use Types [...] Diagnosis Comments PAP TEST- RESULT ONLY Routine 04/19/2011 0:00 EDT documented in this encounter Results * PAP TEST- RESULT ONLY (04/19/2011 0:00 EDT) Pathology Report: CYTOPATHOLOGY REPORT ? Reports generated via electronic interface contain original data; ? however they are lacking the format of the original report. ? Caution should be taken when reading/interpreti ng unformatted reports. ? Name: ? HALEY WHITLOCK ? Accession #: ? [id number] ? : ? 1955 (Age: 55) ??F ?Collect Date: ? 04/19/2011 ? Location: ? [facility] ? Receive Date: ? 04/22/2011 ? Provider: ?NINI MACHADO MD ? Copy to: ? Specimen/Source: ?Pap Test, Endocervix, ThinPrep Imaging System with ? manual evaluation ? Last Menstrual Period: ? 2001 ? Hormonal/Contracep tive Status: ? Yes: Estrace ? Previous Gynecologic Pathology: ? ASC-US: 01/2010, HPV- ? SPECIMEN ADEQUACY ? Satisfactory for Evaluation ? - transformation zone component present ? GENERAL CATEGORIZATION ? Negative for Intraepithelial Lesion or Malignancy ? Document reviewed and electronically signed by: ? Nica [place],CT(ASCP) ? Report Date: ??04/26/2011 15:10 ? End of Report ? [facility] 04/19/2011 04/22/2011 us Nini Machado MD PATHOLOGY ORDERABLES Final R esult Performing Organization Address [facility]/State/ZIP Co de Phone Number [facility] [address] [place] [address] documented in this encounter Visit Diagnoses Not on filedocumented in this encounter Care Teams Balancing Machine Operator Relationship Specialty Start Date End Date Nini Machado MD 79 [address] [facility],[place] [address] [place] [address] PCP - General 01/26/10 documented as of this encounter
--- OUTSIDE RECORDS SUMMARY | 2024-08-27 00:44 | XMS_ITS | Encounter Summary ---
Author Organization [facility] Address [address] [place] [address] Care Team Providers Care Treating Plant Pumper Name Role Phone Nini Machado MD Primary Care Provider Encounter Details Date Type Department Care Team (Late st Contact Info) Description 02/21/2016 Results Only [facility] [phone] Michael Bah MD [address] [place] [address] Social History Tobacco Use Types [...] Date/Time Associated Diagnosis Comments SURGICAL PATHOLOGY Routine 02/21/2016 19 :15 EDT documented in this encounter Results * SURGICAL PATHOLOGY (02/21/2016 19:15 EDT) Pathology Report: SURGICAL PATHOLOGY REPORT Reports generated via electronic interface contain original data; however they are lacking the format of the original report. Caution should be taken when reading/interpreting unformatted reports. Name: ? HALEY WHITLOCK ? Accession #: ? [id number] ? : ? 1955 (Age: 60) ??F ? Collect Date: ? 02/21/2016 ? Location: ? [facility] ? Receive Date: ? 02/22/2016 ? Provider: MICHAEL BAH MD Copy to: NINI MACHADO MD ? Final Pathologic Diagnosis: URINARY BLADDER, LEFT TRIGONE, LESION, BIOPSY: - ??Polypoid fragment of urothelium with flat urothelial atypia of unknown significance. - ??No muscularis propria identified. Comment: This case was reviewed at intradepartmental consultation conference. Document reviewed and electronically signed by: Martín Pritchard MD Report ??Date: 02/26/2016 15:17 By the signature above, the attending physician certifies that he/she has personally conducted a gross and/or microscopic examination of the described specimens and rendered or confirmed the above diagnosis. Specimen(s) Received: Left trigone lesion Clinical History: Tiny bladder lesion; clinical diagnosis code: ??D49.4 Gross Description: ? Received in formalin labelled with proper patient identification (initials O, M) and left trigone lesion is a scant amount of loza-pink tissue (0.2 x less than 0.1 x less than 0.1 cm). The specimen is submitted entirely in 1. 02/23/2016 8:41 AM End of Report [facility] 02/21/2016 19:1 5 EDT 02/22/2016 19:15 EDT us Michael Bah MD PATHOLOGY ORDERABLES Final R esult [facility] [address] [place] [address] documented in this encounter Visit Diagnoses Not on filedocumented in this encounter Care Teams Treating Plant Pumper Relationship Specialty Start Date End Date Nini Machado MD 79 [facility] 3 [place] [address] PCP - General 01/26/10 documented as of this encounter
--- OUTSIDE RECORDS SUMMARY | 2024-08-27 00:44 | XMS_ITS | Encounter Summary ---
Author Organization [facility] [place] [address] Care Team Providers Care Baker Operator Automatic Name Role Phone Nini Machado MD Primary Care Provider [phone] Encounter Details Date Type Department Care Team (Late st Contact Info) Description 07/26/2024 Lab [place] [address] Nini Machado MD 79 [facility] 3 [place], [place] [phone] Encounter for other specified special examinations Social History Tobacco Use Types Packs/Day Years [...] place to sleep or slept in a fci (including now)? No 06/20/2021 IPV Inpatient Questions [...] 2:00 PM EST Office Visit Hematology/Oncology at [address] [phone] [facility] DR HEMATOLOGY [place] [address] Cailin Marrero APRN [address] [place] [address] DR HEMATOLOGY [place] [address] 09/07/2024 9:00 AM EST Office [place] [address] [facility] [place] [address] 10/04/2024 1:15 PM EST [place] [address] Feliciano Shay, [facility] [address] documented as of this encounter Procedures Procedure Name Priority Date/Time Associated Diagnosis Comments SURGICAL PATHOLOGY (REQ ENTRY) Routine 07/26/2024 2:24 PM EST Encounter for other specified special examinations documented in this encounter Results * (ABNORMAL) Surgical Pathology (Req Entry) (07/26/2024 2:24 PM EST) Case Report Surgical Pathology Report ? Case: [id number] ? Authorizing Provider: ??Nini Machado MD ?Collected: ? 07/26/20244 ? Ordering Location: ? Laboratory ? Received: ?07/26/2024 2148 ? Pathologist: ? Abby Greene MD ? Specimens: ?? A) - Stomach, Antrum ? B) - Esophagus, Distal ? C) - Colon, Ascending ? D) - Colon, Transverse, Transverse Colon Polyp ? 08/13/2024 10:58 AM [facility] Final Diagnosis A. Stomach, Antrum, Biopsy: Gastric antral mucosa within normal limits. No H. Pylori-like microorganisms are seen. B. Esophagus, Distal, Biopsy: : Squamocolumnar junctional mucosa (cardia type) with mild chronic inflammation and focal intestinal metaplasia, negative for dysplasia. C. Colon, Ascending, Biopsy: : Polypoid colonic mucosa with at least high grade dysplasia, can not rule out more severe process due to superficial nature of the biopsy. Additional levels examined. D. Colon, Transverse, Transverse Colon Polyp Biopsy: : Hyperplastic polyp. 08/13/2024 10:58 AM [facility] Clinical Information Erosive esophagitis, Hiatal Hernia, Colon Polyp, Sigmoid Diverticulosis 08/13/2024 10:58 AM [facility] Gross Description A. Stomach, Antrum, . A - Labeled/Fixative: Antrum BX, formalin. Quantity/Size: Two, ranging from 0.1 to 0.3 cm. Tissue Description: Soft, loza-pink, friable tissues. Sections/Processi ng: Submitted in toto in 1 cassette labeled A1. MARILIA B. Esophagus, Distal, . B - Labeled/Fixative: Distal esophagus BX, formalin. Quantity/Size: Three, averaging 0.2 cm. Tissue Description: Soft, loza-pink, friable tissues. Sections/Processi ng: Submitted in toto in 1 cassette labeled B1. MARILIA C. Colon, Ascending, . C - Labeled/Fixative: Ascending colon BX, formalin. Quantity/Size: Five, ranging from 0.2 to 0.4 cm. Tissue Description: Soft, loza-pink, friable tissues. Sections/Processi ng: Submitted in toto in 1 cassette labeled C1. MARILIA D. Colon, Transverse, Transverse Colon Polyp. D - Labeled/Fixative: Transverse colon polyp, formalin. Quantity/Size: Single, 0.5 cm. Tissue Description: Soft, loza-pink, friable tissue. Sections/Processi ng: Submitted in toto in 1 cassette labeled D1. MARILIA 08/13/2024 10:58 AM EST [facility] Result Note THIS RESULT REQUIRES PHYSICIAN/ARIAS FOLLOW UP(A) 08/13/2024 10:58 AM EST [facility] Tissue TRANSVERSE COLON STRUCTURE / Unknown 07/26/2024 2:24 PM EST 07/26/2024 9:48 PM EST Tissue specimen (specimen) REGION OF ESOPHAGUS / Unknown 07/26/2024 2:24 PM EST 07/26/2024 9:48 PM EST Tissue specimen (specimen) ASCENDING COLON STRUCTURE / Unknown 07/26/2024 2:24 PM EST 07/26/2024 9:48 PM EST Tissue specimen (specimen) TRANSVERSE COLON STRUCTURE / Unknown 07/26/2024 2:24 PM EST 07/26/2024 9:48 PM EST Nini Machado MD PATHOLOGY/CYTOLOGY O R[facility]AROBIN[facility] [place] [place] [address] documented in this encounter Visit Diagnoses Diagnosis Encounter for other specified special examinations documented in this encounter Care Teams Baker Operator Automatic Relationship Specialty Start Date End Date Nini Machado MD [address] [place] [address] PCP - General 06/26/10 documented as of this encounter
--- OUTSIDE RECORDS SUMMARY | 2024-08-27 00:44 | XMS_ITS | Encounter Summary ---
Author Organization [facility] Address [address] [place] [address] Care Team Providers Care Warehouse Shipping Receiving Clerk Name Role Phone Unavailable Primary Care Provider Unavailabl e Encounter Details Date Type Department Care Team (Late st Contact Info) Description 10/27/2007 12:44 EDT Hospital Encounter [facility] - Other [address] [place] [address] Nini Machado MD 79 [facility] 3 [place], [place] [id number] Discharge Disposition: Home or Self Care Social [...] Priority Date/Time Associated Diagnosis Comments CYTOPATHOLOGY Routine 07/29/2008 0:00 EST SURGICAL PATHOLOGY Routine 05/04/2008 0:00 EDT CYTOPATHOLOGY Routine 10/27/2007 0:00 EDT documented in this encounter Results * CYTOPATHOLOGY (07/29/2008 0:00 EST) Pathology Report: CYTOPATHOLOGY REPORT ? Reports generated via electronic interface contain original data; ? however they are lacking the format of the original report. ? Caution should be taken when reading/interpreti ng unformatted reports. ? Name: ? HALEY WHITLOCK ? Accession #: ? [id number] ? : ? 1955 (Age: 52) ??F ?Collect Date: ? 07/29/2008 ? Location: ? [facility] ? Receive Date: ? 08/02/2008 ? Provider: ? NINI MACHADO MD ? Copy to: ? Specimen Type: ? Urine, Voided ? Clinical History: ? Clinical diagnosis code: 599.72. ? Gross Description: ? One vial of Cytolyt was received and processed by selective cellular ? enhancement technique. ? CYTOLOGIC DIAGNOSIS: ? Urine, voided, cytologic evaluation: ? 1. ?No malignant cells identified. ? 2. ? Degenerative changes noted. ? 3. ? Artifactual clustering. ? 4. ? Red blood cells and cellular casts noted. ? Document reviewed and electronically signed by: ? JALEN HALE MD [facility] ? Report Date: ??08/02/2008 16:31 ? By the signature above, the attending physician certifies that he/she has ? personally conducted a gross and/or microscopic examination of the described ? specimens and rendered or confirmed the above diagnosis. ? End of Report ? DANIELLE URBANO 07/29/2008 08/02/2008 8:2 9 EST us Nini Machado MD PATHOLOGY ORDERABLES Final R esult DANIELLE LOBATO [facility] [address] [place] [address] * SURGICAL PATHOLOGY (05/04/2008 0:00 EDT) Pathology Report: SURGICAL PATHOLOGY REPORT ? Reports generated via electronic interface contain original data; ? however they are lacking the format of the original report. ? Caution should be taken when reading/interpreti ng unformatted reports. ? Name: ? HALEY WHITLOCK ? Accession #: ? [id number] ? : ? 1955 (Age: 52) ??F ? Collect Date: ? 05/04/2008 ? Location: ? [facility] ? Receive Date: ? 05/05/2008 ? Provider: CHALO CAMILO MD ? Copy to: NINI P YOUNG-GOMEZ MD ? Final Pathologic Diagnosis: ? A. ?Duodenum, bulb, biopsies: ? 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 ??See comment. ? B. ?? Stomach, antrum, biopsy: ?1. ??Funic mucosa with no specific pathologic features. ? 2. ??No Helicobacter pylori-like microorganisms identified on H&E-stained ?? sections. ? C. ?? Esophagus, biopsies: ?1. ?? Squamous and fundic mucosa with no significant pathologic ? features. ? Comment: ? Sections of (A) feature duodenal mucosa with foci of fundic-type mucosa and overlying foveolar surface epithelium. ??(Dr. Adame)/mpl ? Document reviewed and electronically signed by: ? Rimma Alvarenga MD ? Report ??Date: 05/10/2008 19:51 ? By the signature above, the attending physician certifies that he/she has ? personally conducted a gross and/or microscopic examination of the described ? specimens and rendered or confirmed the above diagnosis. ? Specimen(s) Received: ? A. ?Duodenum bulb bx (#1) ? B. ? Antrum bx (#2) ? C. ? Esophagus @ 39 cm x 2 (esophagus 35 cm x1 & body of stomach bx x1) ? Clinical History: ? EGD for early satiety and decreased appetite, hx of duodenal polyps, ? duodenum ok today, multiple Sierra gland hypertrophic appearing polyps ??bulb ?? 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 ? Gross Description: ? Received in Hollande's solution labelled Whitlock and duodenum bulb ? biopsy. ??The specimen consists of two pink-loza tissues, each 0.3 x 0.2 x 0.2 ?? cm, submitted in toto in (A). ? Received in Hollande's solution labelled Whitlock and antrum. ??The specimen consists of a single 0.2 x 0.2 x 0.1 cm pink-loza tissue, submitted in toto in ?? (B). ? Received in Hollande's solution labelled Whitlock and esophagus biopsy 35 cm body of stomach. The specimen consists of three pink-loza tissues ranging from ?? 0.1 x 0.1 x 0.1 cm to 0.2 x 0.2 x 0.2 cm, submitted in toto in (C). ??(L. ? Guerrero)/ljk ? End of Report ? DANIELLE URBANO 05/04/2008 05/05/2008 9:3 5 EDT us Chalo Camilo MD PATHOLOGY ORDERABLES Final Resul t DANIELLE LOBATO [facility] [address] [place] [address] * CYTOPATHOLOGY (10/27/2007 0:00 EDT) Pathology Report: CYTOPATHOLOGY REPORT Reports generated via electronic interface contain original data; however they are lacking the format of the original report. Caution should be taken when reading/interpreti ng unformatted reports. Name: ? HALEY WHITLOCK ? Accession #: ? [id number] : ? 1955 (Age: 51) ??F ?Collect Date: ? 10/27/2007 Location: ? [facility] ? Receive Date: ? 10/29/2007 Provider: ?NINI MACHADO MD Copy to: ? Specimen/Source: ?ThinPrep Pap Test, Cervix/Endocervix, processed on [employer]ts ThinPrep Imaging System, with manual evaluation Last Menstrual Period: ? Previous Gynecologic Pathology: ? LSIL Treatment History: ? Colposcopy: nl Other: ? HPVDX - HPV testing requested regardless of diagnosis on current ThinPrep Pap test. ? SPECIMEN ADEQUACY ? Satisfactory for Evaluation - transformation zone component present GENERAL CATEGORIZATION ? Negative for Intraepithelial Lesion or Malignancy ? Document reviewed and electronically signed by: ? MORENITA Wright(ASCP)(IAC) ? Report Date: ??11/03/2007 16:30 End of Report DANIELLE URBANO 10/27/2007 10/29/2007 us Nini Machado MD PATHOLOGY ORDERABLES Final R esult DANIELLE LOBATO [facility] [address] [place] [address] documented in this encounter Visit Diagnoses Not on filedocumented in this encounter
--- OUTSIDE RECORDS SUMMARY | 2024-08-27 00:44 | XMS_ITS | Encounter Summary ---
Author Organization [facility] Address [facility] [place] [address] Care Team Providers Care Child And Family Services Worker Name Role Phone Nini Machado MD Primary Care Provider [phone] Encounter Details Date Type Department Care Team (Late st Contact Info) Description 07/12/[address] [facility] [address] [place] [phone] Nini Machado MD 79 [facility] 3 [place] [address] Social History Tobacco Use Types [...] place to sleep or slept in a intermediate (including now)? No 06/20/2021 IPV Inpatient Questions [...] 2:00 PM EST Office Visit Hematology/Oncology at [address] [phone] Mars Conley MD [facility] DR HEMATOLOGY [place] [address] Cailin Marrero APRN [address] [place] [address] [place] [address] 09/07/2024 9:00 AM EST Office Visit [place] [address] [place] Alvarado MD [facility] [place] [address] 10/04/2024 1:15 PM EST Office [place] [address] Feliciano Shay, [facility] [place] [address] documented as of this encounter Procedures Procedure Name Priority Date/Time Associated Diagnosis Comments MAMMO SCREENING CAD BILATERAL (CH) Routine 07/12/2024 3:05 PM EST documented in this encounter Results * MAMMO SCREENING CAD BILATERAL (CH) (07/12/2024 3:05 PM EST) PT CLASS O RAD ADMITDTTM [id number] RAD PT RAD MD INFO [id number]^Marco Antonio- Landrum^Nini RAD EXAM DESC MADDSCCH^MG Mammo Digital Screening Bilateral.^RIS RAD WORKSTATION ID RADDRIMAGE RAD Anatomical Region Laterality Modality Other 07/12/2024 3:05 PM EST Impressions 07/14/2024 10:04 AM EST BI-RADS Category 1: Negative RECOMMENDATION: Routine mammography screening * ??Regular screening mammograms starting at age 40 reduce the risk of from breast cancer. * ??Individuals should discuss the risks and benefits with their provider to determine their preferred breast cancer screening schedule, and at what age screening should stop. * ??Individuals should report any breast changes to a health care provider right away. * ??Some Individuals, because of their family history, a genetic tendency, or other factors, should consider being screened with annual breast MRI as well as with mammograms. * ??Screening mammography may not detect 10-15% of?breast cancers. Thank you for letting us participate in the care of this patient. ??If you are a health care provider and have any questions regarding this report, please contact the number below. ??For patients who have questions please contact the health patient care coordinator that requested your imaging first. ? Electronically signed by: Antoni Ramirez MD, [facility] ([phone]), at 07/14/2024 10:[address] ??[id number] Narrative 07/14/2024 10:04 AM EST EXAMINATION: MG Mammo Digital Screening Bilateral. REASON FOR EXAM: Screening Family history of breast cancer: None Reproductive history: Parous No personal history of breast cancer. COMPARISON: Previous mammograms were reviewed. TECHNIQUE: ??CC and MLO views were obtained of BOTH breasts. 2D and 3D tomosynthesis images were obtained. Computer aided detection was used FINDINGS: There are no suspicious microcalcifications, masses, or areas of distortion. No changes compared to prior studies. BREAST DENSITY: There are scattered areas of fibroglandular density. Procedure Note Antoni Ramirez MD - 07/14/2024 EXAMINATION: MG Mammo Digital Screening Bilateral. REASON FOR EXAM: Screening Family history of breast cancer: None Reproductive history: Parous No personal history of breast cancer. COMPARISON: Previous mammograms were reviewed. TECHNIQUE: CC and MLO views were obtained of BOTH breasts. 2D and 3D tomosynthesis images were obtained. Computer aided detection was used FINDINGS: There are no suspicious microcalcifications, masses, or areasof distortion. No changes compared to prior studies. BREAST DENSITY: There are scattered areas of fibroglandular density. IMPRESSION BI-RADS Category 1: Negative RECOMMENDATION: Routine mammography screening * Regular screening mammograms starting at age 40 reduce the risk ofdeath from breast cancer. * Individuals should discuss the risks and benefits with their providerto determine their preferred breast cancer screening schedule, and at whatage screening should stop. * Individuals should report any breast changes to a health care providerright away. * Some Individuals, because of their family history, a genetic tendency,or other factors, should consider being screened with annual breast MRI aswell as with mammograms. * Screening mammography may not detect 10-15% of?breast cancers. Thank you for letting us participate in the care of this patient. If youare a health care provider and have any questions regarding this report,please contact the number below. For patients who have questions please contactthe health patient care coordinator that requested your imaging first. [facility] [address] [place] [address] Nini Machado MD PACS IMAGES documented in this encounter Visit Diagnoses Not on filedocumented in this encounter Care Teams Child And Family Services Worker Relationship Specialty Start Date End Date Nini Machado MD 79 [facility] 3 [place] [address] PCP - General 06/26/10 documented as of this encounter
--- OUTSIDE RECORDS SUMMARY | 2024-08-27 00:44 | XMS_ITS | Encounter Summary ---
Author Organization [facility] Address One [facility] [place] [address] Care Team Providers Care Bucket Wash Operator Name Role Phone Nini Machado MD Primary Care Provider [phone] Encounter Details Date Type Department Care Team (Latest Contact Info) Description 07/26/2024 Travel Social History Tobacco Use Types Packs/Day [...] place to sleep or slept in a residential (including now)? No 06/20/2021 IPV Inpatient Questions [...] 2:00 PM EST Office Visit Hematology/Oncology at [address] [phone] Mars Conley MD [facility] DR [place] [address] Cailin Marrero APRN [address] [place] [address] DR [place] [address] 09/07/2024 9:00 AM EST Office [place] [phone] [place] Alvarado MD [facility] [place] [address] 10/04/2024 1:15 PM EST [place] [phone] Feliciano Shay, [facility] [place] [address] documented as of this encounter Visit Diagnoses Not on filedocumented in this encounter Care Teams Bucket Wash Operator Relationship Specialty Start Date End Date Marco Antonio-Nini Landrum MD [address] [address] PCP - General 06/26/10 documented as of this encounter
--- OUTSIDE RECORDS SUMMARY | 2024-08-27 00:44 | XMS_ITS | Encounter Summary ---
Author Organization [facility] Address One [facility] [address] Care Team Providers Care Director Summer Sessions Name Role Phone Nini Machado MD Primary Care Provider [phone] Encounter Details Date Type Department Care Team (Latest Contact Info) Description 05/31/2024 Travel Social History Tobacco Use Types Packs/Day [...] place to sleep or slept in a halfway (including now)? No 06/20/2021 IPV Inpatient Questions [...] 2:00 PM EST Office Visit Hematology/Oncology at [address] [phone] Mars Conley MD [facility] DR HEMATOLOGY [place] [address] Cailin Marrero APRN [address] [place] [address] DR HEMATOLOGY [place] [address] 09/07/2024 9:00 AM EST Office [place] [phone] aRven Alvarado MD [facility] [place] [address] 10/04/2024 1:15 PM EST [place] [phone] Feliciano Shay, [facility] [place] [address] documented as of this encounter Visit Diagnoses Not on filedocumented in this encounter Care Teams Director Summer Sessions Relationship Specialty Start Date End Date Marco Antonio-Nini Landrum MD [address] [address] PCP - General 06/26/10 documented as of this encounter
--- OUTSIDE RECORDS SUMMARY | 2024-08-27 00:44 | XMS_ITS ---
Author Organization [facility] Address [facility] [place] [address] Care Team Providers Care Staffing Executive Name Role Phone Nini Machado MD Primary Care Provider [phone] Active Problems Problem Noted Date Diagnosed Date Pseudophakia 01/02/2024 Small cell carcinoma of lung 06/20/2021 Cancer Staging:Clinical stage from 06/20/2021: cT0, cN2, cM0 - Signed by Juan Fitzpatrick MD on 06/20/2021 Overview (06/20/2021): Detected during screening with an isolated subcarinal node. 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 Past Plans ADULT TREATMENT Plan Name Start Date Discontinue Date Treatment Medications Discontinue Reason Plan Provider Cycles DH BCN AMB ONC SMALL CELL LUNG CANCER - CARBOplatin / ETOPOSIDE 07/04/20 21 01/16/2022 CARBOplatin (Paraplatin) in 150 mL infusionetoposide (Vepesid) in 500 mL infusion Therapy Complete Juan Fitzpatrick MD 4 of 4 cycles started Radiation Treatments * No radiation treatments are documented for this patient in [facility]. Treatments may have been administered in another system. Lifetime Dose Tracking * Chemical Lifetime Dose Automatic Entry Manual Entr y DLP (Dose Length Product) 59 mGy-cm 59 mGy-cm 0 mGy-cm CTDI (CT Dose Index) Min 1.56 mGy 1.56 mGy 0 m Gy CTDI (CT Dose Index) Max 1.56 mGy 1.56 mGy 0 m Gy
--- OUTSIDE RECORDS SUMMARY | 2024-08-27 00:44 | XMS_ITS | Encounter Summary ---
Author Organization [facility] Address [address] [place] [address] Care Team Providers Care Sweet Dough Mixer Name Role Phone Nini Machado MD Primary Care Provider [phone] Encounter Details Date Type Department Care Team (Late st Contact Info) Description 07/15/2013 Results Only [facility] Services - [facility] ([facility]) [address] [place], [place] [phone] Chalo Camilo MD [address] [place] [address] Social History Tobacco Use Types Packs/Day [...] Date/Time Associated Diagnosis Comments SURGICAL PATHOLOGY Routine 07/15/2013 8:50 EST documented in this encounter Results * SURGICAL PATHOLOGY (07/15/2013 8:50 EST) Pathology Report: SURGICAL PATHOLOGY REPORT Reports generated via electronic interface contain original data; however they are lacking the format of the original report. Caution should be taken when reading/interpreti ng unformatted reports. Name: ? HALEY WHITLOCK ? Accession #: ? [id number] ? : ? 1955 (Age: 57) ??F ? Collect Date: ? 07/15/2013 ? Location: ? [facility] ? Receive Date: ? 07/16/2013 ? Provider: CHALO CAMILO MD Copy to: NINI MACHADO MD ? Final Pathologic Diagnosis: A. COLON, DESCENDING, POLYP, BIOPSY: - ??Hyperplastic polyp. B. RECTUM, POLYP, BIOPSY: - ??Fragments of cauterized hyperplastic polyp. ??See comment. Comment: Deeper levels of specimen A and B have been reviewed. Dr. Vital 07/18/2013 09:04 PM Document reviewed and electronically signed by: LULU DALEY MD Report ??Date: 07/22/2013 11:06 By the signature above, the attending physician certifies that he/she has personally conducted a gross and/or microscopic examination of the described specimens and rendered or confirmed the above diagnosis. Specimen(s) Received: A. ?Polyp descending colon B. ? Rectal polyp Clinical History: Hx of cecal polyp Gross Description: A. ?Received in formalin labelled with proper patient identification (initials O, M) and polyp descending colon is a single pink-loza tissue fragment (0.3 x 0.3 x 0.2 cm). Submitted intact in A1. B. ?Received in formalin labelled with proper patient identification (initials O, M) and rectal polyp are two pink-loza tissues (0.3 x 0.2 x 0.2 cm and 0.3 x 0.3 x 0.2 cm). Entirely submitted in B1. Lacie Guerrero 07/16/2013 09:27 AM End of Report DANIELLE URBANO 07/15/2013 8:50 EST 07/16/2013 8:50 EST us Chalo Camilo MD PATHOLOGY ORDERABLES Final Resul t [facility] [address] [place] [address] documented in this encounter Visit Diagnoses Not on filedocumented in this encounter Care Teams Sweet Dough Mixer Relationship Specialty Start Date End Date Marco Antonio-Nini Landrum MD [address] [facility] 3 [place] [address] PCP - General 01/26/10 documented as of this encounter
--- OUTSIDE RECORDS SUMMARY | 2024-08-27 00:44 | XMS_ITS | Encounter Summary ---
Author Organization [facility] Address [address] [place] [address] Care Team Providers Care Dormitory Maid Name Role Phone Nini Machado MD Primary Care Provider Encounter Details Date Type Department Care Team (Latest Contact Info) Description 07/15/2013 9:35 EST - 07/15/2013 23:59 EST Hospital Encounter [address] [address] Unknown, Provider, MD Discharge Disposition: Home or [...] Code Departure Means Destination Home or Self Intermediate documented in this encounter Plan of Treatment Not on file documented as of this encounter Visit Diagnoses Not on filedocumented in this encounter Care Teams Dormitory Maid Relationship Specialty Start Date End Date Nini Machado MD 79 [facility] 3 [place] [address] PCP - General 01/26/10 documented as of this encounter
--- OUTSIDE RECORDS SUMMARY | 2024-08-27 00:44 | XMS_ITS | Clinical Summary ---
Author Organization [facility] [place] [address] Care Team Providers Care Internet Marketing Consultant Name Role Phone Nini Machado MD Primary Care Provider Allergies Active Allergy Reactions Criticality Noted Date Comments Aspirin High CIS - Anaphylaxis Methadone Medium 04/27/2009 Other reaction(s): vomiting Mold Extracts Mushroom Flavor Nitrofurantoin Monohyd/M-Cryst High 04/25/2016 Other reaction(s): hands tingling, pins and needles, face swollen. Nsaids (Non-Steroidal Anti-Inflammatory Drug) High 05/15/2007 Other reaction(s): Shock / Unconsciousness; Penicillins High 05/15/2007 Other reaction(s): Dermatological problems, e.g., rash, hives; Says cefs are ok Red Blood Cells Other (See Comments) High 07/19/2020 Antibodies-Difficult to Crossmatch DO NOT REMOVE Please contact the Blood Bank at [phone] for questions. Sulfamethoxazole-Trimet hopri High 05/15/2007 Other reaction(s): Respiratory problems, e.g., wheezing;Dermatologica l problems, e.g., rash, hives; Medications Medication Sig Dispensed Refills Start Date End Date Status Ventolin HFA 90 mcg/actuation HFA Aerosol Inhaler inhale 2 puffs USING INHALER EVERY 4 HOURS NEEDED 03/07/2021 Active estradioL (ESTRACE) 0.01 % (0.1 mg/gram) Cream PRN: 7days prior to pap smear 04/19/2011 Active EPINEPHrine 0.3 mg/0.3 mL Auto-Injector EPIPEN 2-GIOVANNA 0.3 MG/0.3ML SOAJ 11/02/2013 Active pravastatin (Pravachol) 20 mg Tablet take 1 tablet by mouth once daily for cholesterol 03/30/2021 Active albuteroL (Proventil) 2.5 mg /3 mL (0.083 %) Solution for Nebulization ALBUTEROL SULFATE (2.5 MG/3ML) 0.083% NEBU 06/12/2018 Active montelukast (Singulair) 10 mg Tablet Take 10 mg by mouth nightly. 01/29/2021 Active sertraline (Zoloft) 50 mg Tablet Take 50 mg by mouth daily. Active UNABLE TO FIND as needed. Tucks Acti ve prednisoLONE acetate (Pred Forte) 1 % Drops, Suspension Place 1 drop into the right eye 4 times daily. Active moxifloxacin (Vigamox) 0.5 % Drops Place 1 drop into the right eye 3 times daily. Active metoproloL tartrate (Lopressor) 25 mg tablet Take 1/2 tablet by mouth twice a day for blood pressure and heart 04/26/2024 Active Active Problems Problem Noted Date Diagnosed Date Pseudophakia 01/02/2024 Small cell carcinoma of lung 06/20/2021 Cancer Staging:Clinical stage from 06/20/2021: cT0, cN2, cM0 - Signed by Juan Fitzpatrick MD on 06/20/2021 Overview (06/20/2021): Detected during screening with an isolated subcarinal node. Hard of hearing 02/02/2021 External hemorrhoids without complication 2018 Hyperlipidemia, mixed 08/13/2017 halfway (current) use of opiate analgesic 10/2016 Allergic rhinitis 12/07/2014 Leg cramps 11/18/2013 Venous insufficiency 11/11/2012 Benign neoplasm of colon, unspecified 04/14/2012 Chronic low back pain 10/27/2007 Generalized anxiety disorder 10/27/2007 Chronic obstructive pulmonary disease 05/15/2007 Major depressive disorder, single episode, unspe cified 05/15/2007 Encounters Date Type Department Care Team Description 08/17/2024 Transcribe Orders eDH Incoming Referrals [phone] Nini Machado MD Mass of colon 07/27/2024 Interpretation Only [address] [phone] Oumar Edouard MD 07/26/2024 6:00 PM EST Laboratory [place] [phone] 07/26/2024 Lab [place] [phone] Nini Machado MD Encounter for other specified special examinations 07/26/2024 Travel 07/12/2024 Interpretation Only [address] [phone] Nini Machado MD 05/31/2024 11:00 AM EDT Office Visit Hematology/Oncolo gy at [address] [phone] Mars Conley MD LaRoza, Stephanie A, APRN Small cell carcinoma of lung, unspecified laterality, unspecified part of lung; Ataxia 05/31/2024 Travel from Last 3 Months Immunizations Name Administration Dates Next Due Covid-19 Monovalent (Moderna Spikevax) 12yrs+ (1947-1932) 06/07/2021,12/02/2020,11/04/2020 Family History Medical History Relation Comments Glaucoma Mother Colorectal Cancer Nephew Diabetes Neg Hx Macular Degeneration Neg Hx Retinal Detachment Neg Hx Relation Status Comments Mother Nephew Social History Tobacco Use Types Packs/Day Years [...] on file Sexual Orientation Not on file Last Filed Vital Signs Vital Sign Reading [...] Mass Index 25.66 05/31/2024 11:06 AM EDT Plan of Treatment Upcoming Encounters Date Type Department Care Team (Late st Contact Info) Description 08/30/2024 2:00 PM EST Office Visit Hematology/Oncology at [address] [phone] [facility] [address] HEMATOLOGY [place] [address] Cailin Marrero APRN [address] [place] [address] DR HEMATOLOGY AND ONCOLOGY [place], [place] [address] 09/07/2024 9:00 AM EST Office [place] [phone] [facility] [place] [address] 10/04/2024 1:15 PM EST [place] [phone] Feliciano Shay, [facility] [place] [address] Health Maintenance Due Date Last Done Comments CT Colonography 1955 FIT DNA 1955 FIT 1955 Sigmoidoscopy 1955 Pneumoccocal Vaccine: 50+ (1 of 2 - PCV) 12/26/1974 Tetanus/Diphtheria/Pertussis Vaccines (1 - Tdap) 12/26/1974 Breast Cancer Share Decision Needed 1995 Zoster vaccine (1 of 2) 12/26/2005 RSV Vaccine (1 - Risk 60-74 years 1-dose series) 2015 Covid-19 Vaccine (2023-2 5 season) 2024 06/07/2021, 12/02/2020, 11/04/2020 Influenza (Flu) vaccine (1 o f 1 - Influenza standard series) 04/04/2024 Diabetes Screening (HgbA1C o r Glucose) 07/24/2024 07/24/2021, 07/04/2021, 06/20/2021 Breast Cancer screening 07/12/2026 07/12/20, 07/01/2023, 05/20/2022, Additional history exists Colonoscopy 09/16/2032 09/16/2022, 09/04, 06/27/2021, Additional history exists Colorectal Cancer Screening 09/16/2032 Sigmoidoscopy (10 year) with FIT yearly 09/16/2032 09/16/2022, 09/16/2022, 06/27/2021, Additional history exists Bone Density Scan 07/01/2038 07/01/2023 HPV test Discontinued 06/22/2019 PAP Smear Discontinued 06/22/2019 Hepatitis C Screening Completed 07/24/2021 Medical Devices Implanted Type Area Dining Room Busser Device Identifier Shelf Expiration Date Model / Serial / Lot Lens Iol [id number] +23.5d 6.0x13.0 Aspherical Post Biconvex ([id number]) (Autoreq) - [id number] Implanted:Qty: 1 on 12/25/2023 by Wei Ryan MD at [facility] IMPLANTS Right: Eye [facility] [id number] 06/08/2027 SY60WF.23 5 / [id number] / Procedures Procedure Name Priority Date/Time Associated Diagnosis Comments LAB SCAN 08/19/2024 12:00 AM EST XR CHEST ONE VIEW STAT 07/27/2024 10: 20 PM EST SURGICAL PATHOLOGY (REQ ENTRY) Routine 07/26/2024 2:24 PM EST Encounter for other specified special examinations ENDOSCOPY SCAN 07/26/2024 12:00 AM EST SCAN DOC: COLONOSCOPY 07/26/2024 12:00 AM EST MAMMO SCREENING CAD BILATERAL (CH) Routine 07/12/2024 3:05 PM EST DXA CENTRAL SPINE, HIP, AND/OR WHOLE BODY (GENERIC) Routine 07/01/2023 11:25 AM EST COLONOSCOPY Routine 09/16/2022 1:32 PM EST HC HEPATITIS C ANTIBODY STAT 07/24/2021 12:13 PM EST Small cell carcinoma of lung COMPREHENSIVE METABOLIC PANEL STAT 07/24/2021 12:13 PM EST Small cell carcinoma of lung HPV Routine 06/22/2019 4:00 PM EST BIOPHARMACEUTICAL REP CYTOLOGY FINAL REPORT Routine 06/22/2019 4:00 PM EST from Last 3 Months or Most Recently Relevant to Health Maintenance Results * Scan Doc: Lab (08/19/2024 12:00 AM EST) Narrative 08/19/2024 12:00 AM EST Ordered by an unspecified provider. Scanning Provider MEDIA MGR SCAN EXT O RDR/RSLT * XR Chest One View (07/27/2024 10:20 PM EST) PT CLASS E RAD ADMITDTTM [id number] RAD PT RAD INFO [id number]^Potter ^Oumar RAD EXAM DESC XCXR1^XR Chest 1 View^RIS [facility] WORKSTATION ID [id number] RAD Anatomical Region Laterality Modality Chest N/A [...] who have questions please contact the health career guidance counselor that requested your imaging first. ? Electronically signed by: Santa Moreno MD, [facility] ([phone]), at 07/27/2024 10:53 PM Narrative 07/27/2024 10:53 [...] patients who have questions please contactthe health career guidance counselor that requested your imaging first. Electronically signed by: Santa Moreno MD, [facility]([phone]), at 07/27/2024 10:53 PM Oumar NAVAS DX ORDERABLES * (ABNORMAL) Surgical Pathology (Req Entry) (07/26/2024 2:24 PM EST) Case Report Surgical Pathology Report ? Case: [id number] ? Authorizing Provider: ??Nini Machado MD ?Collected: ? 07/26/20244 ? Ordering Location: ? Laboratory ? Received: ?07/26/20248 ? Pathologist: ? Abby Greene, ? Specimens: ?? A) - Stomach, Antrum ? B) - Esophagus, Distal ? C) - Colon, Ascending ? D) - Colon, Transverse, Transverse Colon Polyp ? 08/13/2024 10:58 AM [facility] Final Diagnosis A. Stomach, Antrum, Biopsy: [...] Biopsy: : Hyperplastic polyp. 08/13/2024 10:58 AM [facility] Clinical Information Erosive esophagitis, Hiatal Hernia, Colon Polyp, Sigmoid Diverticulosis 08/13/2024 10:58 AM [facility] Gross Description A. Stomach, Antrum, . [...] in toto in 1 cassette labeled C1. MAIRLIA D. Colon, Transverse, Transverse Colon Polyp. D - Labeled/Fixative: Transverse colon polyp, formalin. Quantity/Size: Single, 0.5 cm. Tissue Description: Soft, loza-pink, friable tissue. Sections/Processi ng: Submitted in toto in 1 cassette labeled D1. MARILIA 08/13/2024 10:58 AM EST [facility] Result Note THIS RESULT REQUIRES PHYSICIAN/ARIAS FOLLOW UP(A) 08/13/2024 10:58 AM EST [facility] Tissue TRANSVERSE COLON STRUCTURE / Unknown [...] PM EST Nini Machado MD PATHOLOGY/CYTOLOGY O RDERABLES [facility] [place] [address] * Scan Doc: Colonoscopy (07/26/2024 12:00 AM EST) Narrative 07/26/2024 12:00 AM EST Ordered by an unspecified provider. Scanning Provider MEDIA MGR SCAN EXT O RDR/RSLT * Scan Doc: Endoscopy (07/26/2024 12:00 AM EST) Narrative 07/26/2024 12:00 AM EST Ordered by an unspecified provider. Scanning Provider MEDIA MGR SCAN EXT O RDR/RSLT * MAMMO SCREENING CAD BILATERAL (CH) (07/12/2024 3:05 PM EST) PT CLASS O DH RAD ADMITDTTM [id number] DH RAD PT RAD INFO [id number]^Vinay Landrum^Nini RAD EXAM DESC MADDSCCH^MG Mammo Digital Screening Bilateral.^RIS [facility] WORKSTATION ID [id number] [facility] Anatomical Region Laterality Modality Other 07/12/2024 3:05 [...] who have questions please contact the health career guidance counselor that requested your imaging first. ? [address] ??[phone] Narrative 07/14/2024 10:04 AM EST EXAMINATION: MG [...] patients who have questions please contactthe health career guidance counselor that requested your imaging first. [address] [address] Nini Machado MD PACS IMAGES * DXA Central Spine, Hip, and/or Whole Body (Generic) (07/01/2023 11:25 AM EST) PT CLASS RAD ADMITDTTM DH RAD PT [facility] INFO [id number]^Marian Callahan^Carol h [facility] EXAM DESC XDXAC^BD Bone Density DEXA Axial Skeleton^RIS [facility] Anatomical Region Laterality Modality C-spine, Hip N/A Radiographic Mandi ging 07/01/2023 11:2 5 AM EST Impressions 07/01/2023 1:09 PM EST 1. Osteopenia of the left femoral neck and total left hip. Patient is at moderately increased risk for fracture. 2. 10 year fracture risk of major osteoporotic fracture is 15% and for hip fracture 1.5% Thank you for letting us participate in the care of this patient. ??If you are a health care provider and have any questions regarding this report, please contact the number below. ??For patients who have questions please contact the health career guidance counselor that requested your imaging first. ? Electronically signed by: Pro Brown MD, [facility] ([phone]), at 07/01/2023 1:09 PM Narrative 07/01/2023 1:09 PM EST EXAMINATION: BD Bone Density DEXA Axial Skeleton CLINICAL HISTORY: Asymptomatic menopausal state TECHNIQUE: Study of the lumbar spine and left hip. COMPARISON: February 15, 2021. FINDINGS: The bone mineral density of the lumbar spine L1-L4 is 0.963 g/sq cm with a T score of -0.8 and Z score 1.2, 6.6% less than on the prior study. The bone mineral density of the left femoral neck is 0.697 g/sq cm with a T score of -1.4 and a Z score of 0.3. The total bone density left hip is 0.798 g/sq cm with a T score of -1.2 and Z score of 0.2, 4.6% less than on the prior study. Procedure Note Pro Brown MD - 07/01/2023 EXAMINATION: BD Bone Density DEXA Axial Skeleton CLINICAL HISTORY: Asymptomatic menopausal state TECHNIQUE: Study of the lumbar spine and left hip. COMPARISON: February 15, 2021. FINDINGS: The bone mineral density of the lumbar spine L1-L4 is 0.963 g/sq cm with aT score of -0.8 and Z score 1.2, 6.6% less than on the prior study. The bone mineral density of the left femoral neck is 0.697 g/sq cm with aT score of -1.4 and a Z score of 0.3. The total bone density left hip is0.798 g/sq cm with a T score of -1.2 and Z score of 0.2, 4.6% less than on theprior study. IMPRESSION 1. Osteopenia of the left femoral neck and total left hip. Patient is at moderately increased risk for fracture. 2. 10 year fracture risk of major osteoporotic fracture is 15% and forhip fracture 1.5% Thank you for letting us participate in the care of this patient. If youare a health care provider and have any questions regarding this report,please contact the number below. For patients who have questions please contactthe health career guidance counselor that requested your imaging first. Electronically signed by: Pro Brown MD, [facility]([phone]), at 07/01/2023 1:09 PM Nini Machado MD IMG DEXA ORDERABLES * COLONOSCOPY (09/16/2022 1:32 PM EST) [facility] Signature COLONOSCOPY [facility] Endoscopy Procedure Date: 09/16/2022 1:32 PM ? Patient Name: Stefanie Pina ? Date of : 1955 ? Age: 66 ? Order #: [id number] ? Instrument Name: [id number] ? Procedure: ? Colonoscopy Indications: ? 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 f/u Providers: ? Tonny Hurtado MD, Lucas Encinas ? MERLINE Sandoval, Sandra Cam Referring : ?Nini Machado MD Medicines: ? See the Anesthesia note for ? documentation of the administered ? medications Complications: ? No immediate complications. Procedure: ? The procedure, indications, ? benefits, risks and alternatives ? were explained to the patient. ? Specifically discussed were ? potential complications including, ? but not limited to, bleeding, ? perforation, infection, missing a ? cancer, and adverse medication ? reactions. The patient was placed ? in the left lateral decubitus ? position, and a digital rectal exam ? was performed. The Colonoscope was ? inserted in the anus and under ? direct visualization, advanced to ? the terminal ileum. Careful ? inspection was made as the ? colonoscope was withdrawn. The ? colonoscopy was performed without ? difficulty. The patient tolerated ? the procedure well. The quality of ? the bowel preparation was evaluated ? using the BBPS ([place] Bowel ? Preparation Scale) with scores of: ? Right Colon = 3, Transverse Colon = ? 3 and Left Colon = 3 (entire mucosa ? seen well with no residual ? staining, small fragments of stool ? or opaque liquid). The total BBPS ? score equals 9. Scope withdrawal ? time was 12 minutes. ? Findings: ? The perianal and digital rectal examinations were ? normal. ? Scar from prior polypectomy of large SSA located in ? proximal ascending colon opposite wall of ICV. There ? was no gross polyp regrowth. ? Scar was piecemeal snared to r/o microscopic or ? submucosal recurrence ? A 3 mm polyp was found in the descending colon. The ? polyp was sessile. The polyp was removed with a cold ? snare. Resection and retrieval were complete. ? The terminal ileum appeared normal. ? Multiple large-mouthed diverticula were found in the ? sigmoid colon and descending colon. ? Moderate Sedation: ? I was present during the intraservice time as ? documented by the sedation RN. Impression: ?- One 3 mm polyp in the descending ? colon, removed with a cold snare. ? Resected and retrieved. ? Scar from prior polypectomy located ? and piecemeal snared ? - The examined portion of the ileum ? was normal. ? - Diverticulosis in the sigmoid ? colon and in the descending colon. Recommendation: ?- Await pathology results. ? Attending Participation: ? I personally performed the entire procedure. ? _ Tonny Hurtado MD 09/16/2022 2:23:15 PM This report has been signed electronically. Number of Addenda: 0 Note Initiated On: 09/16/2022 1:32 PM PROVATION 09/16/2022 1:32 PM EST Nini Machado MD GENERAL SURGICAL ORD ERABLES Performing Organization Address [facility] de Phone Number PROVATION * Hepatitis C Antibody (07/24/2021 12:13 PM EST) Hepatitis C Antibody Negative Negative [facility] Blood 07/24/2021 12:1 3 PM EST 07/24/2021 12:19 PM EST Narrative Resulting Agency Comment Spec In Lab Juan Fitzpatrick MD CHEMISTRY YA BOWERS Performing Organization Address [facility] Co de Phone Number [facility] [place] [address] * (ABNORMAL) Comprehensive metabolic panel (non-fasting) (07/24/2021 12:13 PM EST) Glucose 93 65 - 199 mg/dL [facility] Comment:Diabetes: >=200 mg/d L plus symptoms Blood Urea Nitrogen 12 8 - 18 mg/dL [facility] Creatinine 1.04 0.70 - 1.20 mg/dL [facility] Sodium 140 135 - 145 mmol/L [facility] Potassium 4.3 3.5 - 5.0 mmol/L [facility] Comment: Please note: ??Patients with WBC >100,000 may have falsely elevated Potassium levels. ??For accurate Potassium quantification in these patients send serum separator tube (gold top) for subsequent determinations. ??Contact the Clinical Chemistry Laboratory if there are any questions. Chloride 101 98 - 107 mmol/L [facility] Carbon Dioxide 29 22 - 31 mmol/L [facility] Anion Gap 10 5 - 15 mmol/L [facility] Calcium 9.1 8.5 - 10.5 mg/dL [facility] Protein, Total 7.0 6.1 - 8.0 g/dL [facility] Albumin 4.1 3.2 - 5.2 g/dL [facility] Aspartate Aminotransferase 21 0 - 30 unit/L [facility] Alanine Aminotransferase 18 0 - 30 unit/L [facility] Alkaline Phosphatase 57 35 - 105 unit/L [facility] Bilirubin, Total <0.2(L) 0.2 - 1.3 mg/dL [facility] Est Glomerular Filtration Rate 56(L) >=60 mL/min/1. 73 m?? [facility] Comment: This patient? s estimated glomerular filtration rate (eGFR) is between 56 mL/min/1.73 m2 (patients with less muscle mass) and 65 mL/min/1.73 m2 (patients with more muscle mass) as determined by the CKD-EPI equation. Assessment of eGFR is not appropriate when creatinine concentrations are rapidly changing. For clinical decisions where creatinine clearance will affect therapy, a 24-hour urine creatinine clearance may be advised. Assignment of CKD stage 1 - 5 for patients with an eGFR near the transition point between stages may be based on clinical assessment of muscle mass and symptoms in addition to eGFR. Blood 07/24/2021 12:1 3 PM EST 07/24/2021 12:19 PM EST Narrative Resulting Agency Comment Spec In Lab Mars Conley MD CHEMISTRY ORDERABLES Performing Organization Address [facility] de Phone Number [facility] [place] [address] * HPV (06/22/2019 4:00 PM EST) HPV16 NEGATIVE NEGATIVE [facility] HPV 18 NEGATIVE NEGATIVE [facility] HPV Other HR NEGATIVE NEGATIVE [facility] HPV Interpretation See Comment [facility] Comment: NEGATIVE for high-risk HPV *. * Testing negative for high risk HPV means that the specimen is negative for the following 14 types tested: ??types 16, 18, 31, 33, 35, 39, 45, 51, 52, 56, 58, 59, 66, and 68. ??The test is not intended to detect low risk HPV types. Citlalli Verito HPV test Specimen: HPV Testing - Cytology Liquid Based Prep Cervical swab (specimen) 06/22/2019 4:00 PM EST 06/22/2019 10:21 PM EST Narrative Resulting Agency Comment Spec In Lab Nini Machado MD PATHOLOGY/CYTOLOGY O RDERABLES Performing Organization Address [facility] de Phone Number [facility] [place] [address] * Service Secretary Cytology Final Report (06/22/2019 4:00 PM EST) Service Secretary Cytology Final Report [id number] ? Location: [facility] The signing pathologist has (i) examined the relevant preparation(s) for the specimen(s) and (ii) rendered or confirmed the diagnosis(es). . ? Service Secretary Final DIAGNOSIS Normal Negative for intraepithelial lesion or malignancy (NILM). For consensus guidelines for the management of cervical cancer screening test results, please see: ?? http://www.asccp.o rg . Electronically signed by: ??MORENITA Waters(ASCP), Nancy CamachoRamírez Verified: ??07/02/2019 ?Steam Tunnel Feeder Performed at: ??-[facility] Dept. of Pathology, [place], [place] HPV RESULTS HPV16 (Result) ?Negative HPV18 (Result) ?Negative HPVOHR (Result) ? Negative HPV (Interpretation) ?See Below HPV (Interpretation) Text: NEGATIVE for high-risk HPV *. *Testing negative for high risk HPV means that the specimen is negative for the following 14 types tested: types 16, 18, 31, 33, 35, 39, 45, 51, 52, 56, 58, 59, 66, and 68. The test is not intended to detect low risk HPV types. Citlalli verito HPV test Specimen: HPV Testing - Cytology Liquid Based Prep The Citlalli verito ? HPV test was validated, performed and results reported through the [facility] ([facility]) at [facility]. ? - Senthil Dias, PhD, [facility], Director-[facility] STATEMENT OF ADEQUACY Specimen submitted is satisfactory. Endocervical component present. CLINICAL INFORMATION HPV Option: ? Concurrent HPV CT/NG Option: ? No Preparation: ?Liquid Based Pap Specimen Source: ?Cervical Endocervical LBP LMP: ?2000 ??Postmenopausal Hysterectomy?: ?No ?: ?No ?: ?No I.U.D.?: ?No Pelvic Radiation: ? No Hist Abnl Pap/Biopsy?: ??Yes Prior BIOPHARMACEUTICAL REP Therapy?: ? No Hist of HPV Vaccine?: ?? No Clinical Data, Significant Therapy and Clinical Impression ?? : ?? _ Referring Identifier: ?(not provided) . CLINICAL INFORMATION This Pap Test has been evaluated with the assistance of the iTwinPrep Pap Test Imaging System. Note: The Pap test is a screening test for cervical cancer with an inherent false-negative rate dependent upon several variables. For further information please contact the [facility] Laboratory. Reference: Kandy ROBINS. Intelligence Senior Sergeant of Pap Smear Results. In: Arielle BS, Nas HH, ed. ??The Pap Smear. [place]: Valeriano, 2002: 71-77. [facility] 06/22/2019 4:00 PM EST Nini Machado MD PATHOLOGY/CYTOLOGY O RDERABLES [facility] [place] [address] from Last 3 Months or Most Recently Relevant to Health Maintenance Advance Directives Documents on File Type Date Recorded Patient Hospital Mortician Expl anation Advance Directives and Living Will 10/20/2023 11:47 AM PA [facility]ANCED DIRECTIV E FORM Advance Directives and Living Will 07/02/2021 12:42 PM Stefanie Pina AD.pd f Care Teams Internet Marketing Consultant Relationship Specialty Start Date End Date Marco Antonio-Nini Landrum MD [address] [address] PCP - General 06/26/10
--- OUTSIDE RECORDS SUMMARY | 2024-08-27 00:44 | XMS_ITS | Encounter Summary ---
Author Organization [facility] [place] [address] Care Team Providers Care Administration Intern Name Role Phone Nini Machado MD Primary Care Provider [phone] Reason for Referral * Diagnostic Test (Routine) - Closed Specialty Diagnoses / Procedures Referred By Contac t Referred To Contact Radiology Diagnoses Small cell carcinoma of lung Ataxia Procedures NM PET CT Skull Base to Mid-thigh Mars Conley MD [facility] DR HEMATOLOGY [place] [address] [place] [address] Referral ID Status Reason Start Date Expiration Date V isits Requested Visits Authorized [id number] Closed Specialty Service Requested 05/04/2024 11/02/2025 1 1 Reason for Visit * Diagnostic Test (Routine) - Closed Specialty Diagnoses / Procedures Referred By Contac t Referred To Contact Radiology Diagnoses Small cell carcinoma of lung Ataxia Procedures NM PET CT Skull Base to Mid-thigh Mars Conley MD [facility] DR HEMATOLOGY [place] [address] [place] [address] Referral ID Status Reason Start Date Expiration Date V isits Requested Visits Authorized [id number] Closed Specialty Service Requested 05/04/2024 11/02/2025 1 1 Encounter Details Date Type Department Care Team (Ar vanegas Contact Info) Description 05/24/2024 8:07 AM EDT - 05/24/2024 11:59 PM EDT Hospital Encounter [place] [address] Mars Conley MD [facility] DR HEMATOLOGY [place] [address] Small cell carcinoma of lung; Ataxia Discharge Disposition: Home Social History Tobacco Use [...] place to sleep or slept in a correction (including now)? No 06/20/2021 DH IPV Inpatient [...] times daily. UNABLE TO FIND as needed. Tuckkatharine sertraline (Zoloft) 50 mg Tablet Take 50 [...] 2:00 PM EST Office Visit Hematology/Oncology at [address] [address] Mars Conley MD [facility] DR HEMATOLOGY [place] [address] Cailin Marrero APRN [address] [place] [address] DR HEMATOLOGY AND ONCOLOGY [place], [place] [address] 09/07/2024 9:00 AM EST Office Visit [place] [phone] Raven Alvarado MD [facility] [place] [address] 10/04/2024 1:15 PM EST Office [place] [phone] Feliciano Shay, [facility] [place] [address] documented as of this encounter Procedures Procedure Name Priority Date/Time Associated Diagnosis Comments NM PET CT SKULL BASE TO MID-THIGH ([facility]) Routine 05/24/2024 9:44 AM EDT Small cell carcinoma of lung Ataxia documented in this encounter Results * NM PET CT Skull Base to Mid-thigh (05/24/2024 9:44 AM EDT) WORKSTATION ID [id number] RAD Anatomical Region Laterality Modality Positron Emissio n Tomography (PET) Impressions 05/25/2024 11:16 AM EDT 1. ??Focal intense uptake in the cecum, greater than expected for background physiological uptake. Recommend correlation with colonoscopy. 2. ??Focally increased uptake at the GE junction is probably inflammatory, less likely neoplastic. 3. ??Otherwise, no suspicious uptake identified. 4. ??Uptake associated with mildly displaced lateral left rib 8 fracture, posttraumatic when correlated with provided clinical history. Thank you for letting us participate in the care of this patient. ??If you are a health care provider and have any questions regarding this report, please contact the number below. ??For patients who have questions please contact the health home care coordinator that requested your imaging first. ? 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 Looking to dtermine potential recurrence-not evident on CT scan. ??Did have recnet fall with rib fractures. C34.90, Malignant neoplasm of unspecified part of unspecified bronchus or lung - R27.0, Ataxia, unspecified TECHNIQUE: Following IV injection of 43-lzpygc-5-deoxyglucose (FDG) a standard uptake of approximately 60 minutes, a noncontrast CT scan followed by a PET scan were acquired from the base of the skull to mid thighs. The noncontrast CT was used for anatomic localization and photon attenuation correction of the PET scan. Blood glucose level: 132 (mg/dL) FDG dose: 10.5 mCi COMPARISON: FDG PET CT 06/18/2021 FINDINGS: HEAD AND NECK: BRAIN AND EXTRA-AXIAL SPACES (WHERE INCLUDED): No abnormal uptake. ORBITS (WHERE INCLUDED): No abnormal uptake. PARANASAL SINUSES (WHERE INCLUDED): No abnormal uptake. MASTOIDS (WHERE INCLUDED): No abnormal uptake. AERODIGESTIVE TRACT: No abnormal uptake. SALIVARY GLANDS: No abnormal uptake. THYROID: No abnormal uptake. VASCULATURE: No abnormal uptake. LYMPH NODES: No abnormal uptake. THORAX: LUNGS: No abnormal uptake. A tiny nodule in the posterior left upper lobe measuring 4 to 5 mm (image 68), is nonspecific. Underlying centrilobular emphysema. PLEURA: No abnormal uptake. AIRWAYS: No abnormal uptake. MEDIASTINUM: Mild diffuse uptake in the esophagus is most likely inflammatory. Slightly more focal uptake at the GE junction, similar, also probably likely inflammatory (image 107). Small hiatal hernia. HEART AND VASCULATURE: No abnormal uptake. Multivessel coronary artery calcifications. Mild vascular calcifications of the aortic arch and great vessels. LYMPH NODES: Minimally avid normal-appearing bilateral axillary lymph nodes are most likely reactive. BREASTS/CHEST WALL: No abnormal uptake. ABDOMEN AND PELVIS: LIVER: No abnormal uptake. Fatty liver. BILIARY SYSTEM: No abnormal uptake. PANCREAS: No abnormal uptake. SPLEEN: No abnormal uptake. ADRENALS: No abnormal uptake. KIDNEYS AND URETERS: No abnormal uptake. URINARY BLADDER: No abnormal uptake. REPRODUCTIVE: No abnormal uptake. GI: Focal intense uptake in the cecum measuring SUV max 13.5. Moderate sigmoid diverticulosis. OMENTUM, MESENTERY, PERITONEUM, RETROPERITONEUM: No abnormal uptake. VASCULATURE: No abnormal uptake. Moderate vascular calcifications in the aorta and branch vessels. LYMPH NODES: No abnormal uptake. MUSCULOSKELETAL: No abnormal uptake. Avid fracture lateral left rib 8, correlating with provided clinical history. Procedure Note Lee Serna MD - 05/25/2024 EXAMINATION: NM PET CT STANDARD SKULL BASE TO MID-THIGH CLINICAL HISTORY: 68 yo with ho small cell lung cancer treated s/presection and chemotherapy thought to be in remission but now with ? paraneoplasticsyndrome. Looking to dtermine potential recurrence-not evident on CT scan. Didhave recnet fall with rib fractures. C34.90, Malignant neoplasm of unspecified part of unspecified bronchus orlung - R27.0, Ataxia, unspecified TECHNIQUE: Following IV injection of 94-isypom-3-deoxyglucose (FDG) astandard uptake of approximately 60 minutes, a noncontrast CT scan followed by aPET scan were acquired from the base of the skull to mid thighs. The noncontrast CTwas used for anatomic localization and photon attenuation correction of thePET scan. Blood glucose level: 132 (mg/dL) FDG dose: 10.5 mCi COMPARISON: FDG PET CT 06/18/2021 FINDINGS: HEAD AND NECK: BRAIN AND EXTRA-AXIAL SPACES (WHERE INCLUDED): No abnormal uptake. ORBITS (WHERE INCLUDED): No abnormal uptake. PARANASAL SINUSES (WHERE INCLUDED): No abnormal uptake. MASTOIDS (WHERE INCLUDED): No abnormal uptake. AERODIGESTIVE TRACT: No abnormal uptake. SALIVARY GLANDS: No abnormal uptake. THYROID: No abnormal uptake. VASCULATURE: No abnormal uptake. LYMPH NODES: No abnormal uptake. THORAX: LUNGS: No abnormal uptake. A tiny nodule in the posterior left upperlobe measuring 4 to 5 mm (image 68), is nonspecific. Underlying centrilobular emphysema. PLEURA: No abnormal uptake. AIRWAYS: No abnormal uptake. MEDIASTINUM: Mild diffuse uptake in the esophagus is most likelyinflammatory. Slightly more focal uptake at the GE junction, similar, also probablylikely inflammatory (image 107). Small hiatal hernia. HEART AND VASCULATURE: No abnormal uptake. Multivessel coronary artery calcifications. Mild vascular calcifications of the aortic arch andgreat vessels. LYMPH NODES: Minimally avid normal-appearing bilateral axillary lymphnodes are most likely reactive. BREASTS/CHEST WALL: No abnormal uptake. ABDOMEN AND PELVIS: LIVER: No abnormal uptake. Fatty liver. BILIARY SYSTEM: No abnormal uptake. PANCREAS: No abnormal uptake. SPLEEN: No abnormal uptake. ADRENALS: No abnormal uptake. KIDNEYS AND URETERS: No abnormal uptake. URINARY BLADDER: No abnormal uptake. REPRODUCTIVE: No abnormal uptake. GI: Focal intense uptake in the cecum measuring SUV max 13.5. Moderatesigmoid diverticulosis. OMENTUM, MESENTERY, PERITONEUM, RETROPERITONEUM: No abnormal uptake. VASCULATURE: No abnormal uptake. Moderate vascular calcifications in theaorta and branch vessels. LYMPH NODES: No abnormal uptake. MUSCULOSKELETAL: No abnormal uptake. Avid fracture lateral left rib 8, correlating withprovided clinical history. IMPRESSION 1. Focal intense uptake in the cecum, greater than expected forbackground physiological uptake. Recommend correlation with colonoscopy. 2. Focally increased uptake at the GE junction is probably inflammatory,less likely neoplastic. 3. Otherwise, no suspicious uptake identified. 4. Uptake associated with mildly displaced lateral left rib 8 fracture, posttraumatic when correlated with provided clinical history. Thank you for letting us participate in the care of this patient. If youare a health care provider and have any questions regarding this report,please contact the number below. For patients who have questions please contactthe health home care coordinator that requested your imaging first. Electronically signed by: Lee Serna [facility] [place] ([phone]),at 05/25/2024 11:16 AM Mars Conley MD IMG PET ORDERABLES documented in this encounter Visit Diagnoses Diagnosis Small cell carcinoma of lung Malignant neoplasm of bronchus and lung, unspecified site Ataxia Lack of coordination documented in this encounter Administered Medications Inactive Administered Medications - up to 3 most recent administrations Medication Order MAR Action Action Date Dose Rate Site fludeoxyglucose (F-18) FDG injection 0-20 mCi 0-20 mCi, Intravenous, ONCE PRN, 1 dose, Starting on Fri05/24/24 at 0829, Until Fri05/24/24 at 0824, Per Protocol, Radiology Contrast, Routine Given 05/24/2024 8:24 AM EDT 10.5 mCi Right Arm documented in this encounter Care Teams Administration Intern Relationship Specialty Start Date End Date Marco Antonio-Nini Lnadrum MD [address] [place] [address] PCP - General 06/26/10 documented as of this encounter
--- OUTSIDE RECORDS SUMMARY | 2024-08-27 00:44 | XMS_ITS | Encounter Summary ---
Author Organization [facility] Address [address] [place] [address] Care Team Providers Care Theatrical Variety Agent Name Role Phone Nini Machado MD Primary Care Provider Encounter Details Date Type Department Care Team (Late st Contact Info) Description 03/25/2007 Results Only [facility] [place] conversion [address] [place] [address] Chalo Camilo MD [address] [place] [address] Social History Tobacco Use Types Packs/Day [...] Date/Time Associated Diagnosis Comments SURGICAL PATHOLOGY Routine 03/25/2007 0:00 EDT documented in this encounter Results * SURGICAL PATHOLOGY (03/25/2007 0:00 EDT) Pathology Report: SURGICAL PATHOLOGY REPORT Reports generated via electronic interface contain original data; however they are lacking the format of the original report. Caution should be taken when reading/interpreting unformatted reports. Name: ? HALEY WHITLOCK ? Accession #: ? [id number] ? : ? 1955 (Age: 51) ??F ? Collect Date: ? 03/25/2007 ? Location: ? [facility] ? Receive Date: ? 03/26/2007 ? Provider: CHALO CAMILO MD Copy to: NINI MACHADO MD ? Final Pathologic Diagnosis: A. ?Cecum, polyp, biopsies: 1. ?Fragments of hyperplastic polyp. See comment. B. ?Cecum, polyp stalk, biopsy: 1. ?Colonic mucosa with no specific pathologic features. C. ?Colon, ascending, biopsies: 1. ?Fragments of hyperplastic polyp. D. ?Colon, hepatic flexure polyp, biopsies: 1. ?Colonic mucosa with surface hyperplastic changes. See comment. E. ?Rectum, biopsy: 1. ?No specific pathologic features. Comment: ? The cecal polyp biopsy has been reviewed at intradepartmental consultation conference. Deeper sections have been performed on the hepatic flexure biopsy and reveal only surface hyperplastic changes. (Dr. Ibrahim)/[facility] Document reviewed and electronically signed by: Ila Ibrahim MD Report ??Date: 03/27/2007 18:32 By the signature above, the attending physician certifies that he/she has personally conducted a gross and/or microscopic examination of the described specimens and rendered or confirmed the above diagnosis. Specimen(s) Received: A. ?Cecum polyp bx B. ? Cecum polyp stalk bx C. ? Ascending colon bx D. ? Hepatic flex polyp E. ? Rectum bx Clinical History: ? Rectal bleeding-multiple polyps as indicated. Asc. colon and hep.flex. polyps are flat Gross Description: ? Received in Hollande's fixative labelled Whitlock and cecum polyp bx are two portions of Antunez-stained loza mucosal tissue. ??The smaller is 0.2 x 0.1 x 0.1 cm and the larger is an overtly polypoid mass, 0.6 x 0.7 x 0.5 cm. The polyp is trisected and submitted along with the smaller fragment as (A). Received in Hollande's fixative labelled Whitlock and cecum polyp stalk bx is a 0.2 x 0.1 x 0.1 cm portion of Antunez-stained mucosal tissue, submitted in toto as (B). Received in Hollande's fixative labelled Whitlock and ascending colon bx are four portions of Antunez-stained loza mucosal tissue, which range from less than 0.1 cm in greatest dimension up to 0.2 x 0.1 x 0.1 cm. ??Submitted in toto as (C). Received in Hollande's fixative labelled Whitlock and hepatic flexure polyp bx are two portions of Antunez-stained loza mucosal tissue, 0.1 x 0.1 x 0.1 cm and 0.2 x 0.1 x 0.1 cm, submitted in toto as (D). Received in Hollande's fixative labelled Whitlock and rectum bx is a single portion of Antunez-stained loza mucosal tissue, 0.2 x 0.1 x 0.1 cm, submitted in toto as (E). ??(Dr. Whalen)/mpl End of Report [facility] 03/25/2007 03/26/2007 15: 37 EDT us Chalo Camilo MD PATHOLOGY ORDERABLES Final Resul t [facility] [address] [place] [address] documented in this encounter Visit Diagnoses Not on filedocumented in this encounter Care Teams Theatrical Variety Agent Relationship Specialty Start Date End Date Nini Machado MD [address] [facility] [place] [address] [place] [address] PCP - General 01/26/10 documented as of this encounter
--- OUTSIDE RECORDS SUMMARY | 2024-08-27 00:44 | XMS_ITS | Clinical Summary ---
Author Organization [facility] Address [address] [place] [address] Care Team Providers Care Truck Supervisor Name Role Phone Nini Machado MD Primary Care Provider Social History Tobacco Use Types Packs/Day Years Used Date Smoking Tobacco: Never Assessed Comments Unknown Sex and Gender Information Value Date Recorded Sex Assigned at Not on file Legal Sex Female 18:40 EST Gender Identity Not on file Sexual Orientation Not on file Plan of Treatment Health Maintenance Due Date Last Done Comments Hepatitis C Screen 1955 Fall Risk Screening 12/26/2020 COVID-19 Vaccine (2023- season) 2024 RSV Immunization ( o r 60+ Years) (1 - 1-dose 75+ series) 12/26/2030 Care Teams Truck Supervisor Relationship Specialty Start Date End Date Nini Machado MD 79 [facility] [address] [place] [address] PCP - General 01/26/10
--- OUTSIDE RECORDS SUMMARY | 2024-08-27 00:44 | XMS_ITS | Encounter Summary ---
Author Organization [facility] Address [address] [place] [address] Care Team Providers Care Senior Staff Accountant Name Role Phone Unavailable Primary Care Provider Unavailabl e Encounter Details Date Type Department Care Team (Late st Contact Info) Description 01/23/2010 Results Only [facility] Laboratory Services - [facility] ([facility]) [address] [place], [place] [id number] Nini Machado MD 79 [facility] 3 [place] [address] Social History Tobacco Use Types [...] Comments HPV DETECTION, HIGH RISK TYPES Routine 01/23/2010 8:26 EDT CYTOPATHOLOGY Routine 01/23/2010 0:00 EDT documented in this encounter Results * HUMAN PAPILLOMA VIRUS DNA TEST (01/23/2010 8:26 EDT) Specimen Description Cervix, ThinPrep vial [facility] Result Negative for HPV types 16, 18, 31, 33, 35, 39, 45, 51, 52, 56, 58, 59, and 68. [facility] Report Status Final 01/31/2010 [facility] 01/23/2010 8:26 EDT 01/30/2010 8:26 EDT us Nini Machado MD MICROBIOLOGY - GENERAL ORDER YOANA Final Result [facility] [address] [place] [address] * CYTOPATHOLOGY (01/23/2010 0:00 EDT) Pathology Report: CYTOPATHOLOGY REPORT ? Reports generated via electronic interface contain original data; ? however they are lacking the format of the original report. ? Caution should be taken when reading/interpreti ng unformatted reports. ? Name: ? HALEY WHITLOCK ? Accession #: ? [id number] ? : ? 1955 (Age: 54) ??F ?Collect Date: ? 01/23/2010 ? Location: ? [facility] ? Receive Date: ? 01/24/2010 ? Provider: ?NINI P YOUNG-GOMEZ MD ? Copy to: ? Specimen/Source: ?Pap Test, Cervix/Endocervix, ThinPrep Imaging System ? with manual evaluation ? Last Menstrual Period: ? 01/01/01 ? Other: ? HPVA - HPV testing requested if ASC-US on the current ThinPrep Pap test. ? SPECIMEN ADEQUACY ? Satisfactory for Evaluation ? - transformation zone component present ? GENERAL CATEGORIZATION ? Epithelial Cell Abnormality ? INTERPRETATION ? Squamous Cell Abnormality - Atypical squamous cells, undetermined ? significance (ASC-US). ? EDUCATIONAL NOTES/RECOMMENDATI ONS ? [facility] recommends following the 2006 Consensus Guidelines for the Management of Women with Abnormal Cervical Cancer Screening Tests (JLGTD, ? 2007;11(4):201-222 ). ??Consensus guidelines are available online at ? www.ASCCP.org. ? Document reviewed and electronically signed by: ? Evelyn L. Corbett, MD ? Report Date: ??01/29/2010 15:37 ? End of Report ? [facility] 01/23/2010 01/24/2010 us Nini Machado MD PATHOLOGY ORDERABLES Final R esult [facility] [address] [place] [address] documented in this encounter Visit Diagnoses Not on filedocumented in this encounter
--- OUTSIDE RECORDS SUMMARY | 2024-08-27 00:44 | XMS_ITS | Encounter Summary ---
Author Organization [facility] Address [address] [place] [address] Care Team Providers Care School Director Name Role Phone Nini Machado MD Primary Care Provider Encounter Details Date Type Department Care Team (Latest Contact Info) Description 02/12/2016 7:53 EDT - 02/12/2016 23:59 EDT Hospital Encounter [address] [address] Unknown, Provider, MD Discharge Disposition: Home or [...] Code Departure Means Destination Home or Self Senior Care documented in this encounter Plan of Treatment Not on file documented as of this encounter Visit Diagnoses Not on filedocumented in this encounter Care Teams School Director Relationship Specialty Start Date End Date Nini Machado MD 79 [facility] 3 [place] [address] PCP - General 01/26/10 documented as of this encounter
--- OUTSIDE RECORDS SUMMARY | 2024-08-27 00:45 | XMS_ITS | Encounter Summary ---
Author Organization [facility] Address [address] [facility] [address] [place] [address] Care Team Providers Care Reaming Machine Tender Name Role Phone Nini Machado MD Primary Care Provider [phone] Encounter Details Date Type Department Care Team (Late st Contact Info) Description 03/31/2024 Interpretation Only [facility] [address] [place] [phone] Nini Machado MD 79 [facility] 3 [place] [address] Social History Tobacco Use Types [...] 2:00 PM EST Office Visit Hematology/Oncology at [address] [phone] Mars Conley MD [facility] DR [place] [address] Cailin Marrero APRN [address] [place] [address] [place] [address] 09/07/2024 9:00 AM EST Office [place] [address] Raven Alvarado MD [facility] [place] [address] 10/04/2024 1:15 PM EST [place] [address] Feliciano Shay, [facility] [place] [address] documented as of this encounter Procedures Procedure Name Priority Date/Time Associated Diagnosis Comments XR CHEST PA AND LATERAL Routine 03/31/2024 12:52 PM EDT documented in this encounter Results * XR Chest PA & Lateral (Generic) (03/31/2024 12:52 PM EDT) PT CLASS O RAD ADMITDTTM [id number] RAD PT RAD INFO [id number]^Marco Antonio- Landrum^Nini RAD EXAM DESC XCXR2^XR Chest 2 Views^RIS RAD WORKSTATION ID [id number] RAD Anatomical Region Laterality Modality Chest N/A Radiographic Mandi ging 03/31/2024 12:4 4 PM EDT Impressions 03/31/2024 1:41 PM EDT No acute cardiopulmonary pathology. Thank you for letting us participate in the care of this patient. ??If you are a health care provider and have any questions regarding this report, please contact the number below. ??For patients who have questions please contact the health care coordination manager that requested your imaging first. ? Electronically signed by: Antoni Ramirez MD, [facility] ([phone]), at 03/31/2024 1:41 PM Narrative 03/31/2024 1:41 PM EDT EXAMINATION: XR Chest 2 Views CLINICAL HISTORY: Increased shortness of breath, known COPD, hx lung cancer in remission, crackles L base TECHNIQUE: 2 views of the chest COMPARISON: CT chest October 13, 2023 FINDINGS: The lungs are well-inflated. The heart is not enlarged. No pneumothorax or pleural effusion detected. Procedure Note Antoni Ramirez MD - 03/31/2024 EXAMINATION: XR Chest 2 Views CLINICAL HISTORY: Increased shortness of breath, known COPD, hx lungcancer in remission, crackles L base TECHNIQUE: 2 views of the chest COMPARISON: CT chest October 13, 2023 FINDINGS: The lungs are well-inflated. The heart is not enlarged. No pneumothoraxor pleural effusion detected. IMPRESSION No acute cardiopulmonary pathology. Thank you for letting us participate in the care of this patient. If youare a health care provider and have any questions regarding this report,please contact the number below. For patients who have questions please contactthe health care coordination manager that requested your imaging first. Electronically signed by: Antoni Ramirez MD, [facility]([phone]), at 03/31/2024 1:41 PM Nini Machado MD IMG DX ORDERABLES documented in this encounter Visit Diagnoses Not on filedocumented in this encounter Care Teams Reaming Machine Tender Relationship Specialty Start Date End Date Nini Machado MD [address] [place] [address] PCP - General 06/26/10 documented as of this encounter
--- OUTSIDE RECORDS SUMMARY | 2024-08-27 00:45 | XMS_ITS | Encounter Summary ---
Author Organization [facility] Address One [facility] [place] [address] Care Team Providers Care Balancer Scale Name Role Phone Nini Machado MD Primary Care Provider [phone] Encounter Details Date Type Department Care Team (Late st Contact Info) Description 04/19/2024 Interpretation Only [address] [phone] Unknown None Social History Tobacco Use Types Packs/Day Years [...] place to sleep or slept in a care home (including now)? No 06/20/2021 IPV Inpatient Questions [...] 2:00 PM EST Office Visit Hematology/Oncology at [address] [phone] Mars Conley MD [facility] DR [place] [address] Cailin Marrero APRN [address] [place] [address] DR [place] [address] 09/07/2024 9:00 AM EST Office [place] [address] Raven Alvarado MD [facility] [place] [address] 10/04/2024 1:15 PM EST Office [place] [address] Feliciano Shay, [facility] [address] Pending Results Name Type Priority Associated Diagnoses Date /Time US Guided Needle Placement Imaging Routine 04/19/2024 9:33 AM EDT documented as of this encounter Visit Diagnoses Not on filedocumented in this encounter Care Teams Balancer Scale Relationship Specialty Start Date End Date Marco Antonio-Nini Landrum MD [address] [place] [address] PCP - General 06/26/10 documented as of this encounter
--- OUTSIDE RECORDS SUMMARY | 2024-08-27 00:45 | XMS_ITS | Encounter Summary ---
Author Organization [facility] [place] [address] Care Team Providers Care Polls Or Surveys Interviewer Name Role Phone Nini Machado MD Primary Care Provider [phone] Encounter Details Date Type Department Care Team (Latest Contact Info) Description 05/10/2024 11:30 AM EDT Laboratory Appointment Lab [address]L [place] [phone] Small cell carcinoma of lung; Ataxia Social History Tobacco Use [...] place to sleep or slept in a senior care (including now)? No 06/20/2021 IPV Inpatient Questions [...] PM EST Office Visit Hematology/Oncology at [address] [phone] Mars Conley MD [facility] DR [place] [address] Cailin Marrero APRN [address] [place] [address] DR [place] [address] 09/07/2024 9:00 AM EST Office [place] [phone] Raven Alvarado MD [facility] [place] [address] 10/04/2024 1:15 PM EST [place] [address] Feliciano Shay, [facility] [place] [address] documented as of this encounter Procedures Procedure Name Priority Date/Time Associated Diagnosis Comments PLATELET COUNT PERFORMABLE Routine 05/10/2024 11:45 AM EDT Small cell carcinoma of lung Ataxia PLATELET COUNT Routine 05/10/2024 11:45 AM EDT Small cell carcinoma of lung Ataxia documented in this encounter Results * Platelet count (05/10/2024 11:45 AM EDT) Platelet 239 145 - 357 x10(3)/mcL 05/10/2024 11:59 AM EDT [facility] Blood VENOUS BLOOD SPECIMEN / Unknown Venipuncture / Unknown 05/10/2024 11:45 AM EDT 05/10/2024 11:46 AM EDT Mars Conley MD [place] [address] documented in this encounter Visit Diagnoses Diagnosis Small cell carcinoma of lung Malignant neoplasm of bronchus and lung, unspecified site Ataxia Lack of coordination documented in this encounter Care Teams Polls Or Surveys Interviewer Relationship Specialty Start Date End Date Nini Machado MD [address] [place] [id number] PCP - General 06/26/10 documented as of this encounter
--- OUTSIDE RECORDS SUMMARY | 2024-08-27 00:45 | XMS_ITS | Encounter Summary ---
Author Organization [facility] Address One [facility] [place] [address] Care Team Providers Care Pomology Teacher Name Role Phone Nini Machado MD Primary Care Provider [phone] Encounter Details Date Type Department Care Team (Latest Contact Info) Description 05/03/2024 Travel Social History Tobacco Use Types Packs/Day [...] place to sleep or slept in a nursing home (including now)? No 06/20/2021 IPV Inpatient [...] 2:00 PM EST Office Visit Hematology/Oncology at [address] [phone] Mars Conley MD [facility] [place] [address] Cailin Marrero APRN [address] [place] [address] DR HEMATOLOGY [place] [address] 09/07/2024 9:00 AM EST Office [place] [phone] Raven Alvarado MD [facility] [place] [address] 10/04/2024 1:15 PM EST Office [place] [phone] Feliciano Shay, [facility] [place] [address] documented as of this encounter Visit Diagnoses Not on filedocumented in this encounter Care Teams Pomology Teacher Relationship Specialty Start Date End Date Marco Antonio-Nini Landrum MD [address] [address] PCP - General 06/26/10 documented as of this encounter
--- OUTSIDE RECORDS SUMMARY | 2024-08-27 00:45 | XMS_ITS | Encounter Summary ---
Author Organization [facility] [place] [address] Care Team Providers Care Theater Usher Name Role Phone Nini Machado MD Primary Care Provider [phone] Reason for Referral * Consultation (Routine) - Authorized Specialty Diagnoses / Procedures Referred By Aldo sotelo Referred To Contact Neurology Diagnoses Balance problems Nini Machado MD [address] [address] [facility] Neurology [address] [place] [phone] Referral ID Status Reason Start Date Expiration Date Visits Requested Visits Authorized [id number] Authorized Consult, Test & Treat 05/02/2024 05/02/2025 1 1 Encounter Details Date Type Department Care Team (Late st Contact Info) Description 05/02/2024 Transcribe Orders eDH Incoming Referrals [phone] Nini Machado MD [address] [address] Balance problems Social History Tobacco Use Types Packs/Day Years [...] in a intermediate (including now)? No 06/20/2021 DH IPV Inpatient [...] 2:00 PM EST Office Visit Hematology/Oncology at [address] [phone] Mars Conley MD [facility] DR [place] [address] Cailin Marrero, [employer] [address] [place] [address] DR [place] [address] 09/07/2024 9:00 AM EST Office [place] [phone] Raven Alvarado MD [facility] [place] [address] 10/04/2024 1:15 PM EST [place] [phone] Feliciano Shay, DO [facility] [place] [address] Scheduled Referrals Name Type Priority Associated Diagnoses Orde r Schedule Referral to Neurology Outpatient Referral Routine Balance problems Ordered: 05/02/2024 documented as of this encounter Visit Diagnoses Diagnosis Balance problems Other symptoms involving nervous and musculoskeletal systems documented in this encounter Care Teams Theater Usher Relationship Specialty Start Date End Date Marco Antonio-Nini Landrum MD [address] [address] PCP - General 06/26/10 documented as of this encounter
--- OUTSIDE RECORDS SUMMARY | 2024-08-27 00:45 | XMS_ITS | Encounter Summary ---
Author Organization [facility] [place] [address] Care Team Providers Care Household Assistant Name Role Phone Nini Machado MD Primary Care Provider [phone] Encounter Details Date Type Department Care Team (Late st Contact Info) Description 12/25/2023 12:44 PM EDT - 12/25/2023 1:32 PM EDT Surgery Out[place] [phone] June Ryan MD [facility] [place] [address] CATARACT EXTRACTION, EXTRACAPSULAR, W/ LENS INSERTION (WRVU 7.35) Social History Tobacco Use Types Packs/Day Years [...] place to sleep or slept in a half-way (including now)? No 06/20/2021 DH IPV Inpatient [...] Sign Reading Time Taken Comments Blood Pressure 121/63 12/25/2023 12:13 PM EDT Pulse 88 12/25/2023 12:13 PM EDT Temperature 36 ??C (96.8 ??F) 12/25/2023 12:13 PM EDT Respiratory Rate 16 12/25/2023 12:13 PM EDT Oxygen Saturation 93% 12/25/2023 12:13 PM EDT Inhaled Oxygen Concentration - - Weight 68 kg (150 lb) 12/25/2023 12:13 PM EDT Height 165.1 cm (5' 5) 12/25/2023 12:13 PM EDT Body Mass Index 24.96 12/25/2023 12:13 PM EDT documented in this encounter Discharge Instructions * Discharge Instructions* Sondra Betancourt RN - 12/25/2023 12:14 PM EDT Instructions for the first day following eye surgery June Ryan MD Section of ophthalmology [facility] [phone] - Keep your eye patched, shielded, clean and dry overnight. The patch will be removed during your follow up visit with Dr. Ryan tomorrow. - The surgery center nurses should confirm time of your follow up appointment for tomorrow with . This appointment will be at the Eye Clinic in the main building at [facility]. - Mild discomfort is normal, but if you have any severe eye pain or bleeding call [phone] and ask to speak to the eye doctor market asset protection manager. - Call your Primary Care Doctor or the Emergency Room for any non eye related medical issues. - Your eye will be red tomorrow - this is normal. - You will go home with drops but you will not start them until after your visit with Dr. Ryan tomorrow. Additional instructions about your eyedrops, care of the eye and timing of visual recovery will be provided at that appointment. You may have received medication before and/or during your procedure, which affect your judgement and reaction time therefore for the next 24 hours: You may be unsteady on your feet, be careful on stairs. Do not smoke if you are alone. Do not drink alcoholic beverages. Do not drive or operate any type of machinery. Do not make important legal decisions. documented in this encounter Medications at Time of Discharge Medication Sig Dispensed Refills Start Date End Date UNABLE TO FIND as needed. Thelma sertraline [...] nightly. 01/29/2021 documented as of this encounter Progress Notes * Sondra Betancourt RN - 12/25/2023 12:51 PM EDT Pt instructed to squeeze RN's hand if having pain, need to cough, etc. Pt instructed not to talk during procedure. Pain assessment unable to verbalize (non-verbal) but will indicate pain with hand squeeze, ask surgeon to pause and verbally assess pt. Date/Procedure: Meds Given Comments 12/25/2023 Rt Cataract Midazolam: 2mg Fentanyl: 30mcg Prior to procedure: LS dim throughout with insp crackles left base. O2 sat 93- 95% on RA. Pt states she checks her oxygen at home and it's usually 88-92%.No SOB, Resp rate reg and easy. Pt self administered 2 puffs of own albuterol inh. After MDI LS clear but L base unchanged. Sat remains 93-95% on RA. Discussed with Michelle Jackson CRNA Pt ang procedure well and stated she was very comfortable. Patient will be returning for second eye on TBD. documented in this encounter H&P Notes * June Ryan MD - 12/25/2023 12:24 PM EDT Images from the original note were not included. Seen in pre-operative area. Stefanie Pina reports that she is in her usual state of health and has had no new problems with her eyes or general health since her pre op physical examination and shefeels fit for surgery today. Stefanie was in no distress; specifically no respiratory distress. Pre opphysical examination reviewed. Heart: RRR Chest: CTA her Mallampati score is class 2 (see below) and ASA II and her eyes were non inflamed. Operative, refractive, code status and post op plans reviewed: Knows that CR scarring may effect surgery and outcomes Diagnosis and surgical plan: Cataract causing impaired vision with plan for cataract extraction andintraocular lens placement right eye Sedation plan: Moderate sedation with anesthesia back up and full code for eye surgery ASA PHYSICAL STATUS CLASSIFICATION SYSTEM I. Patient is a completely healthy fit patient. II. Patient has mild systemic disease. III. Patient has severe systemic disease that is not incapacitating. IV. Patient has incapacitating disease that is a constant threat to life. V. A moribund patient who is not expected to live 24 hour with or without surgery documented in this encounter Miscellaneous Notes * Op Note - June Ryan MD - 12/25/2023 1:40 PM EDT [facility] Operative Note Patient Name: Stefanie Pina : [id number] MR#: [id number] Case Date: 12/25/2023 Surgeon: Surgeons and Role: * June Ryan MD - Primary * Hussain Flannery MD - Resident - Assisting Preoperative diagnosis: Cataract Postoperative diagnosis: Cataract Procedure(s) (LRB): CATARACT EXTRACTION, EXTRACAPSULAR, W/ LENS INSERTION (WRVU 7.35) (Right) Preoperative Diagnoses 1. Cataract, RIGHT eye. 2. Chorioretinal scars Postoperative Diagnoses 1. Same Procedure: Phacoemulsification operative eye as above (Riki [id number], 23.5 D). Anesthesia: IV Conscious sedation with local (Subtenon's block, 1:1 2% lidocaine + 0.75% bupivacaine). Surgeon: June Ryan MD Specimens: None. Estimated blood loss: Minimal ( less than 1ml) Complications: None. Brief History: Stefanie Pina is a 67 y.o. with painless symptomatic visual impairment due to cataracts causing difficulty with visual activities, not correctable with a tolerable change in lens prescription. There is no evidence that other diseases are the primary cause of vision loss. The risks, benefits and alternatives to the surgery were discussed pre operatively and Stefanie expressed understanding and elected surgery. Procedure: After informed consent was reviewed with the patient in the preoperative area and the operative site was marked, the patient was taken to the operating room and placed on the operating table in the supine position and with some reverse Trendelenburg. A drop of alcaine and then 5% betadine was placed in the operative eye x 2 beginning 10 minutes prior to the surgerical incision. After adequate intravenous sedation was given the operative eye was then prepped and draped in the usual sterile ophthalmic manner with containment of the eyelashes. A lid speculum was placed into the operative eye. Conjunctiva and Tenon's were opened in the inferior nasal quadrant and a SubTenon's block was placed with a retrobulbar cannula. A conjunctival incision was made at ~11 o'clock using Jacob scissors. Conjunctiva and Tenon's membrane were opened to allow a 2.4 mm incision site approximately 1 mm posterior to the limbus. Hemostasis was obtained with eraser- tip cautery. A paracentesis was then made a 2 o'clock. The eye was filled with viscoelastic. The eye was then entered through the incision using the keratome. The cystotome and Utrata forceps was used to create the capsulorhexis. Buhl Dissection and delineation were performed. The phacoemulsification instrument was placed in the eye, and a phacoemulsification of the lens was performed. Residual cortex was removed using the irrigation and aspiration device. The IOL (see above) was placed into the capsular bag after the eye had been filled with viscoelastic. Viscoelastic was removed using the I-A device. The pupil remained round throughout the case. The lens was well centered and stable in the capsular bag. The eye was found to be at an appropriate tactile tension, and the wound was watertight. The conjunctiva was closed using cautery. Subconjunctival dexamethasone and cefazolin and ceftazidime were given. The eye was patched over Co-sopt and maxitrol ointment. Stefanie tolerated the procedure well and was given instructions to keep the eye patched, shielded, clean and dry and follow up tomorrow in the eye clinic. Stefanie is to call p.r.n. any problems. JUNE RYAN MD Case Date: 12/25/2023 I was present and I participated during the entire procedure (does not need to include opening and closing). JUNE RYAN MD 12/25/2023 documented in this encounter Plan of Treatment Upcoming Encounters Date Type Department Care Team (Late st Contact Info) Description 08/30/2024 2:00 PM EST Office Visit Hematology/Oncology at [address] [phone] Mars Conley MD [facility] DR HEMATOLOGY [place] [address] Cailin Marrero APRN [address] [place] [address] DR HEMATOLOGY AND ONCOLOGY [place], [place] [address] 09/07/2024 9:00 AM EST Office [place] [phone] Raven Alvarado MD [facility] [place] [address] 10/04/2024 1:15 PM EST Office [place] [phone] Feliciano Shay, [facility] [place] [address] documented as of this encounter Procedures Procedure Name Priority Date/Time Associated Diagnosis Comments Extracapsular Cataract Rmvl Insertion Io Lens Prosth W/O Ecp (17834) 12/25/2023 1:32 PM EDT Cataract CATARACT EXTRACTION, EXTRACAPSULAR, W/ LENS INSERTION Routine 12/25/2023 9:34 AM EDT documented in this encounter Visit Diagnoses Not on filedocumented in this encounter Administered Medications Inactive Administered Medications - up to 3 most recent administrations Medication Order MAR Action Action Date Dose Rate Site fentaNYL (pf) (50 mcg/mL) multi-dose injection 25 mcg 25 mcg, Intravenous, EVERY 5 MIN PRN, Starting on Parisa 12/25/23 at 1200, Until Parisa 12/25/23 at 1419, Pain, For use in the Operating Room (OR), Outpatient Surgical Center (OSC), or Special Procedure Room only under direct provider supervision and verbal order. Hold for respiratory rate less than 8 breaths per minute. (maximum dose 100 mcg), Intra-Operative (Intra-Procedure), Routine Given 12/25/2023 1:54 PM EDT 10 mcg Given 12/25/2023 1:44 PM EDT 10 mcg Given 12/25/2023 1:35 PM EDT 10 mcg midazolam (pf) (Versed) (1 mg/mL) multi-dose injection 0.25-1 mg 0.25-1 mg, Intravenous, EVERY 5 MIN PRN, Starting on Parisa 12/25/23 at 1200, Until Parisa 5 at 1419, Anxiety, For use in the Operating Room (OR), Outpatient Surgery Center (OSC) or Special Procedure room only with direct provider supervision and verbal order. Hold for delirium/agitation. (Maximum dose 4 mg.), Intra-Operative (Intra-Procedure), Routine Given 12/25/2023 1:49 PM EDT 0.5 mg Given 12/25/2023 1:42 PM EDT 0.5 mg Given 12/25/2023 1:37 PM EDT 0.5 mg moxifloxacin (Vigamox) 0.5 % ophthalmic solution 1 drop 1 drop, Right Eye, EVERY 5 MIN, 3 doses, First dose on Parisa 524 at 1230, Last dose on Parisa 24 at 1240, 1 drop to the operative eye every 5 minutes times 3. Start on the day of surgery., Day of Surgery (Day of Procedure), Routine Given 12/25/2023 12:37 PM EDT 1 drop Given 12/25/2023 12:31 PM EDT 1 drop Given 12/25/2023 12:26 PM EDT 1 drop PHENYLephrine (Mydfrin) 2.5 % ophthalmic solution 1 drop 1 drop, Right Eye, EVERY 5 MIN, 3 doses, First dose on Parisa 524 at 1230, Last dose on Parisa 524 at 1240, 1 drop to the operative eye every 5 minutes times 3. Start on the day of surgery. Do NOT place dilating drops in post-op kit!, Day of Surgery (Day of Procedure), Routine Given 12/25/2023 12:42 PM EDT 1 drop Given 12/25/2023 12:24 PM EDT 1 drop Given 12/25/2023 12:11 PM EDT 1 drop prednisoLONE acetate (Pred-Forte) 1 % suspension 1 drop 1 drop, Right Eye, ONCE, 1 dose, On Parisa 5/23/24 at 1230, 1 drop to the operative eye once. Start on the day of surgery., Day of Surgery (Day of Procedure), Routine Given 12/25/2023 12:21 PM EDT 1 drop tropicamide (Mydriacyl) 1 % ophthalmic solution 1 drop 1 drop, Right Eye, EVERY 10 MIN, 3 doses, First dose on Parisa 5//24 at 1230, Last dose on Parisa 5/24 at 1250, Day of Surgery (Day of Procedure), Routine Given 12/25/2023 12:34 PM EDT 1 drop Given 12/25/2023 12:28 PM EDT 1 drop Given 12/25/2023 12:15 PM EDT 1 drop documented in this encounter Active and Recently Administered Medications Times are shown in EDT. Scheduled Medication Order 12/23/2023 12/24/2023 12/25/2023 moxifloxacin (Vigamox) 0.5 % ophthalmic solution 1 drop (COMPLETED) 1 drop, Right Eye, EVERY 5 MIN, 3 doses, First dose on Parisa 5/23/24 at 1230, Last dose on Parisa 5/23/24 at 1240, 1 drop to the operative eye every 5 minutes times 3. Start on the day of surgery., Day of Surgery (Day of Procedure), Routine 1226 (Given - Provid er: Sondra Betancourt RN)1231 (Given - Provider: Sondra Betancourt RN)1237 (Given - Provider: Sondra Betancourt RN) PHENYLephrine (Mydfrin) 2.5 % ophthalmic solution 1 drop (COMPLETED) 1 drop, Right Eye, EVERY 5 MIN, 3 doses, First dose on Parisa 5/23/24 at 1230, Last dose on Parisa 5/23/24 at 1240, 1 drop to the operative eye every 5 minutes times 3. Start on the day of surgery. Do NOT place dilating drops in post-op kit!, Day of Surgery (Day of Procedure), Routine 1211 (Given - Provid er: Sondra Betancourt RN)1224 (Given - Provider: Sondra Betancourt RN)1242 (Given - Provider: Sondra Betancourt RN) prednisoLONE acetate (Pred-Forte) 1 % suspension 1 drop (COMPLETED) 1 drop, Right Eye, ONCE, 1 dose, On Parisa 12/25/23 at 1230, 1 drop to the operative eye once. Start on the day of surgery., Day of Surgery (Day of Procedure), Routine 1221 (Given - Provid er: Sondra Betancourt RN) tropicamide (Mydriacyl) 1 % ophthalmic solution 1 drop (COMPLETED) 1 drop, Right Eye, EVERY 10 MIN, 3 doses, First dose on Parisa 24 at 1230, Last dose on Parisa 12/25/23 at 1250, Day of Surgery (Day of Procedure), Routine 1215 (Given - Provid er: Sondra Betancourt RN)1228 (Given - Provider: Sondra Betancourt RN)1234 (Given - Provider: Sondra Betancourt RN) PRN Medication Order 12/23/2023 12/24/2023 12/25/2023 acetaminophen (Tylenol) tablet 650 mg 650 mg, Oral, ONCE PRN, 1 dose, Starting on Parisa 12/25/23 at 1419, Until Parisa 24 at 1622, Pain, Maximum dose of acetaminophen is 4,000 mg from all sources in 24 hours. When ordered for pain, acetaminophen should be given even when other ordered pain medications are indicated., Recovery (Recovery-Hospital Unit), Routine fentaNYL (pf) (50 mcg/mL) multi-dose injection 25 mcg (CANCELED) 25 mcg, Intravenous, EVERY 5 MIN PRN, Starting on Parisa 12/25/23 at 1200, Until Parisa 24 at 1419, Pain, For use in the Operating Room (OR), Outpatient Surgical Center (OSC), or Special Procedure Room only under direct provider supervision and verbal order. Hold for respiratory rate less than 8 breaths per minute. (maximum dose 100 mcg), Intra-Operative (Intra-Procedure), Routine 1335 (Given - Provid er: Sondra Betancourt RN)1344 (Given - Provider: Sondra Betancourt RN)1354 (Given - Provider: Sondra Betancourt RN) midazolam (pf) (Versed) (1 mg/mL) multi-dose injection 0.25-1 mg (CANCELED) 0.25-1 mg, Intravenous, EVERY 5 MIN PRN, Starting on Parisa 12/25/23 at 1200, Until Parisa 12/25/23 at 1419, Anxiety, For use in the Operating Room (OR), Outpatient Surgery Center (OSC) or Special Procedure room only with direct provider supervision and verbal order. Hold for delirium/agitation. (Maximum dose 4 mg.), Intra-Operative (Intra-Procedure), Routine 1332 (Given - Provid er: Sondra Betancourt RN)1337 (Given - Provider: Sondra Betancourt RN)1342 (Given - Provider: Sondra Betancourt RN)1349 (Given - Provider: Sondra Betancourt RN) documented in this encounter Care Teams Household Assistant Relationship Specialty Start Date End Date Marco Antonio-Nini Landrum MD [address] [place] [address] PCP - General 06/26/10 documented as of this encounter
--- OUTSIDE RECORDS SUMMARY | 2024-08-27 00:45 | XMS_ITS | Encounter Summary ---
Author Organization Formerly [facility] Address [facility] [place] [address] Care Team Providers Care Physician Industrial Name Role Phone Nini Machado MD Primary Care Provider Encounter Details Date Type Department Care Team (Late st Contact Info) Description 04/26/2024 Interpretation Only [address] [phone] Mars Conley MD [facility] [address] [place] [address] Social History Tobacco Use Types Packs/Day Years [...] 2:00 PM EST Office Visit Hematology/Oncology at [address] [phone] Mars Conley MD [facility] [address] [place] [address] Cailin Marrero APRN [address] [place] [address] DR [place] [address] 09/07/2024 9:00 AM EST Office [place] [address] Raven Alvarado MD [facility] [place] [address] 10/04/2024 1:15 PM EST [place] [address] Feliciano Shay, [facility] [place] [address] documented as of this encounter Visit Diagnoses Not on filedocumented in this encounter Care Teams Physician Industrial Relationship Specialty Start Date End Date Marco Antonio-Nini Landrum MD [address] [facility] 3 [place] [address] PCP - General 06/26/10 documented as of this encounter
--- OUTSIDE RECORDS SUMMARY | 2024-08-27 00:45 | XMS_ITS | Encounter Summary ---
Author Organization [facility] Address [facility] [place] [address] Care Team Providers Care Service Sprinkler Helper Name Role Phone Nini Machado MD Primary Care Provider [phone] Encounter Details Date Type Department Care Team (Late st Contact Info) Description 04/15/2024 Interpretation Only [facility] [address] [place] [phone] Popeye Odell MD [address] [place] [address] Social History Tobacco Use Types Packs/Day Years [...] 2:00 PM EST Office Visit Hematology/Oncology at [address] [phone] Mars Conley MD [facility] DR HEMATOLOGY [place] [address] Cailin Marrero APRN [address] [place] [address] DR HEMATOLOGY [place] [address] 09/07/2024 9:00 AM EST Office [place] [address] Raven Alvarado MD [facility] [place] [address] 10/04/2024 1:15 PM EST [place] [address] Feliciano Shay, [facility] [address] documented as of this encounter Procedures Procedure Name Priority Date/Time Associated Diagnosis Comments XR RIBS AP, OBLIQUE LEFT AND PA CHEST STAT 04/15/2024 10:26 PM EDT documented in this encounter Results * XR Ribs AP, Oblique & PA Chest Left (Generic) (04/15/2024 10:26 PM EDT) PT CLASS E RAD ADMITDTTM [id number] RAD PT [facility] INFO [id number]^Haniss adriano^Popeye RAD EXAM DESC XRRIBPCHXL^XR Ribs 3+ Views Left w/ PA Chest^RIS [facility] WORKSTATION ID [id number] [facility] Anatomical Region Laterality Modality Chest Left Radiographic Mandi ging 04/15/2024 10:2 6 PM EDT Impressions 04/15/2024 10:44 PM EDT No acute rib fracture. Thank you for letting us participate in the care of this patient. ??If you are a health care provider and have any questions regarding this report, please contact the number below. ??For patients who have questions please contact the health family day care provider that requested your imaging first. ? Narrative 04/15/2024 10:44 PM EDT EXAMINATION: XR Ribs 3+ Views Left w/ PA Chest CLINICAL HISTORY: fell, hit ribs on bathtub rim, left rib pain, nl vs, nl exam (except tender to palp, ant ax line TECHNIQUE: AP chest and 2 views left RIBS COMPARISON: March 31, 2024 FINDINGS: Reduced lung volumes. No confluent airspace opacity. No pneumothorax. No pleural effusion. Cardiac, mediastinal and hilar contours are within normal limits for projection and technique. No displaced right rib fracture. No left rib fracture. Procedure Note Santa Moreno MD - 04/15/2024 EXAMINATION: XR Ribs 3+ Views Left w/ PA Chest CLINICAL HISTORY: fell, hit ribs on bathtub rim, left rib pain, nl vs, nlexam (except tender to palp, ant ax line TECHNIQUE: AP chest and 2 views left RIBS COMPARISON: March 31, 2024 FINDINGS: Reduced lung volumes. No confluent airspace opacity. No pneumothorax. Nopleural effusion. Cardiac, mediastinal and hilar contours are within normal limitsfor projection and technique. No displaced right rib fracture. No left rib fracture. IMPRESSION No acute rib fracture. Thank you for letting us participate in the care of this patient. If youare a health care provider and have any questions regarding this report,please contact the number below. For patients who have questions please contactthe health family day care provider that requested your imaging first. Electronically signed by: Santa Moreno MD, [facility]([phone]), at 04/15/2024 10:44 PM Popeye Odell MD IMG DX ORDERABLES documented in this encounter Visit Diagnoses Not on filedocumented in this encounter Care Teams Service Sprinkler Helper Relationship Specialty Start Date End Date Marco Antonio-Nini Landrum MD [address] [address] PCP - General 06/26/10 documented as of this encounter
--- OUTSIDE RECORDS SUMMARY | 2024-08-27 00:45 | XMS_ITS | Encounter Summary ---
Author Organization [facility] Address [facility] [place] [address] Care Team Providers Care Retail Product Advisor Name Role Phone Nini Machado MD Primary Care Provider [phone] Encounter Details Date Type Department Care Team (Late st Contact Info) Description 04/19/2024 Interpretation Only [facility] [address] [place] [phone] Zan Lyons MD [address] [facility] 3 [place] [address] Social History Tobacco Use Types [...] 2:00 PM EST Office Visit Hematology/Oncology at [address] [phone] Mars Conley MD [facility] DR HEMATOLOGY [place] [address] Cailin Marrero APRN [address] [place] [address] DR [place] [address] 09/07/2024 9:00 AM EST Office Visit [place] [address] Raven Alvarado MD [facility] [place] [address] 10/04/2024 1:15 PM EST Office [place] [address] Feliciano Shay, [facility] [address] documented as of this encounter Procedures Procedure Name Priority Date/Time Associated Diagnosis Comments XR CHEST PA AND LATERAL Routine 04/20/2024 7:20 AM EDT documented in this encounter Results * XR Chest PA & Lateral (Generic) (04/20/2024 7:20 AM EDT) PT CLASS O RAD ADMITDTTM [id number] RAD PT RAD INFO [id number]^Solnit ^Zan^D RAD EXAM DESC XCXR2^XR Chest 2 Views^RIS [facility] WORKSTATION ID [id number] RAD Anatomical Region Laterality Modality Chest N/A Radiographic Mandi ging 04/20/2024 7:20 AM EDT Impressions 04/20/2024 7:52 AM EDT No acute finding. Pneumothorax not apparent on radiograph. Thank you for letting us participate in the care of this patient. ??If you are a health care provider and have any questions regarding this report, please contact the number below. ??For patients who have questions please contact the health personal care assistant that requested your imaging first. ? Narrative 04/20/2024 7:52 AM EDT EXAMINATION: XR Chest 2 Views CLINICAL HISTORY: recheck pneumothorax seen on CT TECHNIQUE: Two-view chest COMPARISON: Chest radiograph 03/31/[address] 04/18/2024 FINDINGS: Basilar atelectasis, lungs are otherwise unremarkable. The marni and cardiomediastinal silhouette are normal. No pleural collection or pneumothorax. Left eighth lateral rib fracture again seen.. Procedure Note Jim Conway MD - 04/20/2024 EXAMINATION: XR Chest 2 Views CLINICAL HISTORY: recheck pneumothorax seen on CT TECHNIQUE: Two-view chest COMPARISON: Chest radiograph 03/31/[address] 04/18/2024 FINDINGS: Basilar atelectasis, lungs are otherwise unremarkable. The marni and cardiomediastinal silhouette are normal. No pleural collection orpneumothorax. Left eighth lateral rib fracture again seen.. IMPRESSION No acute finding. Pneumothorax not apparent on radiograph. Thank you for letting us participate in the care of this patient. If youare a health care provider and have any questions regarding this report,please contact the number below. For patients who have questions please contactthe health personal care assistant that requested your imaging first. Zan Lyons MD IMG DX ORDERABLES documented in this encounter Visit Diagnoses Not on filedocumented in this encounter Care Teams Retail Product Advisor Relationship Specialty Start Date End Date Marco Antonio-Nini Landrum MD [address] [place] [id number] PCP - General 06/26/10 documented as of this encounter
--- OUTSIDE RECORDS SUMMARY | 2024-08-27 00:45 | XMS_ITS | Encounter Summary ---
Author Organization Formerly [facility], 1928–[address] [place] [address] Care Team Providers Care Chemical Process Analyst Name Role Phone Nini Machado MD Primary Care Provider [phone] Reason for Referral * Diagnostic Test (Routine) - Closed Specialty Diagnoses / Procedures Referred By Aldo sotelo Referred To Contact Radiology Diagnoses Small cell carcinoma of lung Ataxia Procedures NM PET CT Skull Base to Mid-thigh Mars Conley MD [facility] [address] [place] [address] [place] [address] Referral ID Status Reason Start Date Expiration Date V isits Requested Visits Authorized [id number] Closed Specialty Service Requested 05/04/2024 11/02/2025 1 1 Encounter Details Date Type Department Care Team (Late st Contact Info) Description 05/03/2024 1:00 PM EDT Office Visit Hematology/Oncology at [address] [phone] Mars Conley MD [facility] [address] [place] [address] Cailin Marrero APRN [address] [place] [address] [place] [address] Small cell carcinoma of lung; Ataxia Social [...] Sign Reading Time Taken Comments Blood Pressure 126/67 05/03/2024 1:15 PM EDT Pulse 88 05/03/2024 1:15 PM EDT Temperature 36.2 ??C (97.1 ??F) 05/03/2024 1 :15 PM EDT Respiratory Rate 18 05/03/2024 1:15 PM EDT Oxygen Saturation 93% 05/03/2024 1:1 5 PM EDT 93% on 2L of oxygen via NC. Inhaled Oxygen Concentration - - Weight 69.9 kg (154 lb 3.2 oz) 05/03/2024 1:15 PM EDT Height 165.1 cm (5' 5) 05/03/2024 1:15 PM EDT Body Mass Index 25.66 05/03/2024 1:15 PM EDT documented in this encounter Progress Notes * Mars Conley MD - 05/03/2024 1:00 PM EDT Images from the original note were not included. Hematology & [place] [address] Stefanie returns to clinic today for evaluation [...] in 12/2021. Plan: # Progressive Neurological deficits -exam today notable primarily for ataxia. Her reflexes are symmetrical and she is not focally weak. Romberg positive. 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 Imaging of the L spine and brain generally unremarkable. CTchest and pelvis without clearly evident recurrence though there is a small left pleural effusion. -I will check with neuroradiology to see whether further dedicated imaging of the brain stem is warranted here or if the current images suffice -Needs a lumbar puncture with cell count protein cytology (though I think leptomeningeal disease isprobably less likely) and a paraneoplastic panel Will need to check anti-Hu, anti-Yo, anti-Ri, Anti P/Q voltage gated calcium channel abs, Anti CRMP5, [id number] - PET scan to look for disease recurrence given that not evident on her recent CT scan imaging # Chronic back pain - well managed with MJ gummies. No longer using opiates. # R hip pain/ arthritis - being managed by her PCP # Bowel thickening involving cecum noted on PET scan from her original diagnosis and on recent CT scan -May need to consider dedicated colonoscopy at some point Mars Conley MD, MS 05/03/2024 Medical Oncology & Hematology [facility] CC: Nini Machado MD Interval History/Subjective: 3 months started weakness in the legs. No change during the course of the day. No arms symptoms. Nofevers or infections. Does not fluctuate during the day. No back pains. Had had some falls. Using a walker- even in the shower. Did fracture a left rib when she fell- hurtbut has gotten btter. No weight loss Having increase issue with her breahting now on 1L home O2 . Her chronic pain is fairly well [...] Appears amenable to transbronchoscopic biopsy. Referral to professor of practice advised. 06.06.21 CT Abdomen Pelvis 1. .No [...] versus lymph node. No new findings. 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 The immunoperoxidase stain results support the diagnosis Molecular Data: NA Treatment Course: 07.04.21 C1D1 Carboplatin/Etoposide 07.17.21 [facility] and found to have acute uncomplicated diverticulitis. Treated with abx and discharged on 1.22 C2 with concurrent BID radiation ending 08.24.21 [...] REMOVE Please contact the Blood Bank at [phone] for questions. Sulfamethoxazole-Trimethoprim Other reaction(s): Respiratory problems, e.g., wheezing;Dermatological problems, e.g., rash, hives; Methadone Other reaction(s): vomiting Mold Extracts Mushroom Flavor PHYSICAL EXAMINATION: Wt Readings from Last 3 Encounters: 05/03/24 69.9 kg (154 lb 3.2 oz) 12/25/23 68 kg (150 lb) 10/27/23 71.5 kg (157 lb 9.6 oz) Temp Readings from Last 3 Encounters: 05/03/24 36.2 ??C (97.1 ??F) (Temporal) 12/25/23 35.9 ??C (96.6 ??F) (Temporal) 10/27/23 36.4 ??C (97.6 ??F) (Temporal) BP Readings from Last 3 Encounters: 05/03/24 126/67 12/25/23 109/70 10/27/23 144/66 Pulse Readings from Last 3 Encounters: 05/03/24 88 12/25/23 83 10/27/23 77 Physical Exam BP 126/67 (Patient Position: Sitting) Pulse 88 Temp 36.2 ??C (97.1 ??F) (Temporal) Resp 18 Ht 165.1 cm (5' 5) Wt 69.9 kg (154 lb 3.2 oz) SpO2 93% Comment: 93% on 2L of oxygen via NC. BMI 25.66 kg/m?? Constitutional: Oriented to person, [...] strength. 2+ symmetrical ptellar DTRS Data Review: 04/29/24 MRI Brain COMPARISON: 06/11/2021, 10/13/2023, 04/21/2023, [...] 2:00 PM EST Office Visit Hematology/Oncology at [address] [phone] Mars Conley MD [facility] [address] [place] [address] Cailin Marrero APRN [address] [place] [address] DR [place] [address] 09/07/2024 9:00 AM EST Office [place] [phone] Raven Alvarado MD [facility] [place] [address] 10/04/2024 1:15 PM EST Office [place] [phone] Feliciano Shay, [facility] [place] [address] Scheduled Orders Name Type Priority Associated Diagnoses Orde r Schedule Immunophenotyping Flow Cytometry Lab Routine Small cell carcinoma of lung Ataxia Expected: 05/04/2024, Expires: 11/03/2024 documented as of this encounter Results * NM PET CT Skull Base to Mid-thigh (05/24/2024 9:44 AM EDT) WORKSTATION ID [id number] RAD Anatomical Region Laterality Modality Positron Emissio [...] who have questions please contact the health manager intensive care unit that requested your imaging first. ? Narrative [...] Ataxia, unspecified TECHNIQUE: Following IV injection of 34-gtjano-8-deoxyglucose (FDG) a standard uptake of approximately 60 [...] Ataxia, unspecified TECHNIQUE: Following IV injection of 89-prmjkh-0-deoxyglucose (FDG) astandard uptake of approximately 60 minutes, [...] patients who have questions please contactthe health manager intensive care unit that requested your imaging first. Electronically signed by: Lee Serna [facility] ([phone]),at 05/25/2024 11:16 AM Mars Conley MD IMG PET ORDERABLES * Cytology Non-STORAGE GARAGE MANAGER (05/11/2024 1:51 PM EDT) Case Report Medical Cytology Report ? Case: [id number] ? Authorizing Provider: ??Mars Conley MD ?Collected: ? 05/11/2024 1351 ? Ordering Location: ? Hematology/Oncolo gy at St ??Received: ?05/11/2024 1352 ? [facility] ? Pathologist: ? Ruperto Rodriguez MD ? Specimen: ?Cerebrospinal Fluid, Lumbar Puncture ? 05/13/2024 2:05 PM [facility] Specimen Source Cerebrospinal Fluid, Lumbar Puncture 05/13/2024 2:05 PM [facility] Final Diagnosis Negative for malignancy 05/13/2024 2:05 PM [facility] Diagnosis Discussion Predominantly red blood cells. 05/13/2024 2:05 PM [facility] Specimen Adequacy Satisfactory for evaluation. 05/13/2024 2:05 PM [facility] Clinical Information 68 yo with h/o small cell lung cancer treated and in remission with new onset ataxia. Concern for paraneoplastic syndrome vs leptomeningeal disease. 05/13/2024 2:05 PM [facility] Gross Description Received fresh, approximately 2 mL total volume of clear, colorless fluid. Total preparation: Cytospin slide(s): 2. 05/13/2024 2:05 PM [facility] Result Note Routine 05/13/2024 2:05 PM EDT [facility] Cerebrospinal Fluid CEREBROSPINAL FLUID SPECIMEN / Unknown Non Blood Collection / Unknown 05/11/2024 1:51 PM EDT 05/11/2024 1:52 PM EDT Mars Conley MD PATHOLOGY/CYTOLOGY O RDERABLES [facility] [place] [address] * XR Fluoro Guided Lumbar Puncture (05/10/2024 1:50 PM EDT) WORKSTATION ID [id number] RAD Anatomical Region Laterality Modality L-spine N/A Radio Fluoroscop y Impressions 05/11/2024 10:09 AM EDT Successful fluoroscopic-guided lumbar puncture without immediate complication. Resident/Fellow: Philip Reynoso MD Attending: Salty Langford MD I, the attending Dr. Salty Langford, was present for the critical portions of the procedure and available at all times. Preliminary report signed by: Philip eRynoso at 05/10/2024 2:01 PM I have personally reviewed the image(s) and the resident's interpretation and agree with the findings, Salty Langford at 05/11/2024 10:09 AM Thank you for letting us participate in the care of this patient. ??If you are a health care provider and have any questions regarding this report, please contact the number below. ??For patients who have questions please contact the health manager intensive care unit that requested your imaging first. ? Narrative 05/11/2024 10:09 AM EDT EXAMINATION: XR FLUORO GUIDED LUMBAR PUNCTURE CLINICAL HISTORY: 68 yo with h/o small cell lung cancer treated and in remission with new onset ataxia. ??Concern for paraneoplastic syndrome vs leptomeningeal disease C34.90, Malignant neoplasm of unspecified part of unspecified bronchus or lung - R27.0, Ataxia, unspecified TECHNIQUE: After an extensive discussion with the patient regarding the risks and benefits of the procedure, informed written and verbal consent were obtained. With the patient positioned prone on the fluoroscopy table, the L4-L5 interspace was localized using physical landmarks and fluoroscopy. The overlying skin was then prepped and draped in a sterile surgical fashion. A preprocedural timeout was performed per [facility] protocol. The patient's skin was anesthetized using less than 5 cc of 1% lidocaine without epinephrine. A 20-gauge, 3 1/2 inch spinal needle was advanced into the subarachnoid space, which was confirmed with return of clear cerebral spinal fluid. Opening pressure was not measured. A total of 10 cc of clear cerebral spinal fluid was collected and divided into four tubes. These tubes were sent for laboratory analysis, as per the ordering physician. After the fluid was collection was complete the stylet was replaced and the spinal needle removed. There were no immediate complications. COMPARISON: CT abdomen pelvis 04/23/2024 FINDINGS: 10 cc of clear cerebrospinal fluid FLUOROSCOPY TIME: 0.04 min Procedure Note Salty Langford MD - 05/11/2024 EXAMINATION: XR FLUORO GUIDED LUMBAR PUNCTURE CLINICAL HISTORY: 68 yo with h/o small cell lung cancer treated and inremission with new onset ataxia. Concern for paraneoplastic syndrome vsleptomeningeal disease C34.90, Malignant neoplasm of unspecified part of unspecified bronchus orlung - R27.0, Ataxia, unspecified TECHNIQUE: After an extensive discussion with the patient regarding therisks and benefits of the procedure, informed written and verbal consent were obtained. With the patient positioned prone on the fluoroscopy table, theL4-L5 interspace was localized using physical landmarks and fluoroscopy. Theoverlying skin was then prepped and draped in a sterile surgical fashion. Apreprocedural timeout was performed per [facility] protocol. The patient's skin wasanesthetized using less than 5 cc of 1% lidocaine without epinephrine. A 20-gauge, 31/2 inch spinal needle was advanced into the subarachnoid space, which wasconfirmed with return of clear cerebral spinal fluid. Opening pressure was not measured.A total of 10 cc of clear cerebral spinal fluid was collected and dividedinto four tubes. These tubes were sent for laboratory analysis, as per theordering physician. After the fluid was collection was complete the stylet wasreplaced and the spinal needle removed. There were no immediate complications. COMPARISON: CT abdomen pelvis 04/23/2024 FINDINGS: 10 cc of clear cerebrospinal fluid FLUOROSCOPY TIME: 0.04 min IMPRESSION Successful fluoroscopic-guided lumbar puncture without immediatecomplication. Resident/Fellow: Philip Reynoso MD Attending: Salty Langford MD I, the attending Dr. Salty Langford, was present for the criticalportions of the procedure and available at all times. Preliminary report signed by: Philip Reynoso at 05/10/2024 2:01 PM I have personally reviewed the image(s) and the resident's interpretationand agree with the findings, Salty Langford at 05/11/2024 10:09 AM Thank you for letting us participate in the care of this patient. If youare a health care provider and have any questions regarding this report,please contact the number below. For patients who have questions please contactthe health manager intensive care unit that requested your imaging first. Mars Conley MD IMG FLUORO ORDERABLE S * CSF Culture (05/10/2024 1:40 PM EDT) Central Nervous System Culture No growth 05/13/2024 9:46 AM EDT [facility] Gram Stain Cytocentrifuge Gram Stain performed 05/13/2024 9:46 AM EDT [facility] Gram Stain Neutrophils seen 05/13/20 9:46 AM EDT [facility] Gram Stain No microorganisms seen 05/13/2024 9:46 AM EDT [facility] Cerebrospinal Fluid CEREBROSPINAL FLUID SPECIMEN / Unknown Non Blood Collection / Unknown 05/10/2024 1:40 PM EDT 05/10/2024 1:52 PM EDT Mars Conley MD MICROBIOLOGY - GENER AL ORDERABLES [facility] [place] [address] * Glucose Level CSF (05/10/2024 1:40 PM EDT) Glucose, CSF 72 mg/dL 05/10/2024 3:05 PM EDT [facility] Comment:At equilibrium, CSF glucose concentration is approximately 60-80% of plasma glucose. Cerebrospinal Fluid CEREBROSPINAL FLUID SPECIMEN / Unknown Non Blood Collection / Unknown 05/10/2024 1:40 PM EDT 05/10/2024 1:52 PM EDT Mars Conley MD BODY FLUIDS AND STOO LS ORDERABLES Performing Organization Address City/[facility]/ZIP Co de Phone Number [facility] [place] [address] * (ABNORMAL) Protein Level CSF (05/10/2024 1:40 PM EDT) Protein, CSF 61(H) 15 - 45 mg/dL 05/10/2024 3:18 PM EDT [facility] Xanthochromat ic, CSF Negative Negative 05/10/2024 3:18 PM EDT [facility] Cerebrospinal Fluid CEREBROSPINAL FLUID SPECIMEN / Unknown Non Blood Collection / Unknown 05/10/2024 1:40 PM EDT 05/10/2024 1:52 PM EDT Mars Conley MD BODY FLUIDS AND STOO LS ORDERABLES [facility] [place] [address] * CSF Cell Count (05/10/2024 1:40 PM EDT) AUTO NUC CSF CT 4 0 - 5 /mcl 4 3:20 PM EDT [facility] Comment:All body fluid resul ts should always be interpreted in light of the total clinical presentation of the patient, including clinical history, data from additional tests and other appropriate information. AUTO RBC CSF CT 36 /mcl 4 3:20 PM EDT [facility] Diff Performed CSF? No 05/10/2024 3:20 PM EDT [facility] Cerebrospinal Fluid CEREBROSPINAL FLUID SPECIMEN / Unknown Non Blood Collection / Unknown 05/10/2024 1:40 PM EDT 05/10/2024 1:52 PM EDT Mars Conley MD BODY FLUIDS AND STOO LS ORDERABLES [facility] [place] [address] documented in this encounter Visit Diagnoses Diagnosis Small cell carcinoma of lung Malignant neoplasm of bronchus and lung, unspecified site Ataxia Lack of coordination Small cell carcinoma of lung Malignant neoplasm of bronchus and lung, unspecified site Ataxia Lack of coordination Small cell carcinoma of lung Malignant neoplasm of bronchus and lung, unspecified site Ataxia Lack of coordination documented in this encounter Care Teams Chemical Process Analyst Relationship Specialty Start Date End Date Marco Antonio-Nini Landrum MD [address] [address] PCP - General 06/26/10 documented as of this encounter
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
--- OUTSIDE RECORDS SUMMARY | 2024-08-27 00:45 | XMS_ITS | Encounter Summary ---
Author Organization [facility] Address [facility] [place] [address] Care Team Providers Care Gravity Meter Operator Name Role Phone Nini Machado MD Primary Care Provider [phone] Encounter Details Date Type Department Care Team (Late st Contact Info) Description 04/23/2024 Interpretation Only [address] [phone] Mars Conley MD [facility] DR HEMATOLOGY [place] [address] Social History Tobacco Use Types [...] 2:00 PM EST Office Visit Hematology/Oncology at [address] [phone] Mars Conley MD [facility] [address] HEMATOLOGY [place] [address] Cailin Marrero APRN [address] [place] [address] DR [place]EM[place]OLOGY [place] [address] 09/07/2024 9:00 AM EST Office [place] [address] Raven Alvarado MD [facility] [place] [address] 10/04/2024 1:15 PM EST Office [place] [address] Feliciano Shay, [facility] [place] [address] documented as of this encounter Procedures Procedure Name Priority Date/Time Associated Diagnosis Comments CT ABDOMEN AND PELVIS W CONTRAST Routine 04/23/2024 11:24 AM EDT documented in this encounter Results * CT Abdomen & Pelvis w Contrast (04/23/2024 11:24 AM EDT) PT CLASS O RAD ADMITDTTM [id number] [facility] PT [facility] MD INFO [id number]^Fuld^A lexander RAD EXAM DESC CTAPW^CT Abdomen and Pelvis w/ Contrast^RIS [facility] WORKSTATION ID [id number] [facility] Anatomical Region Laterality Modality Abdomen, Pelvis Computed Tomogra phy 04/23/2024 10:0 7 AM EDT Impressions 04/25/2024 8:31 AM EDT Chest, abdomen and pelvis: 1. ??Increased displacement of the left eighth rib fracture, with increased surrounding posttraumatic intercostal edema. 2. ??New small left pleural effusion. 3. ??Left lower lobe subsegmental atelectasis. 4. ??New linear band of airless lung within the right lower lobe, also likely atelectasis. 5. ??No evidence of metastatic disease. 6. ??Persistent abnormal bowel thickening involving the cecum, also FDG avid on 06/18/2021 PET/CT, concerning for colonic malignancy. Please correlate with prior colonoscopy. 7. ??Hepatic steatosis. 8. ??Diverticulosis. Thank you for letting us participate in the care of this patient. ??If you are a health care provider and have any questions regarding this report, please contact the number below. ??For patients who have questions please contact the health medical care administrator that requested your imaging first. ? Electronically signed by: Marek Jimenez MD, [facility] ([phone]), at 04/25/2024 8:31 AM Narrative 04/25/2024 8:31 AM EDT EXAMINATION: CT Abdomen and Pelvis w/ Contrast, CT Chest w/ Contrast CLINICAL HISTORY: small cell lung cancer restaging exam-s/p chemo/RT for limited stage. New gait imbalance. ? spinal lesion TECHNIQUE: Helical CT of the chest, abdomen and pelvis following the intravenous administration of 100 mL of Omnipaque 350. Oral contrast was administered. COMPARISON: MRI lumbar spine 04/22/2024. CT chest 04/18/2024. CT abdomen pelvis 10/16/2023. PET CT 06/18/2021. FINDINGS: Chest: Lungs and large airways: There is a background of COPD/emphysema. Small areas of subpleural atelectasis within the left lower lobe and posterior left lingula segment. No airspace opacity to suggest pneumonia. No suspicious pulmonary nodules. There is a thin linear bandlike opacity within the right lower lobe directly posterior to the fissure (series 3 image 44), not present on 10/13/2023 but favored to represent atelectasis. Pleura: No pneumothorax. New small layering left pleural effusion. Heart/vasculature: Normal cardiac size. No pericardial effusion. There is coronary artery atherosclerotic disease. Normal caliber of the thoracic aorta with widely patent arch origins. No aortic dissection or acute aortic syndrome. Atherosclerotic disease of the descending thoracic aorta with mural thrombus just above the hiatus with no flow-limiting stenosis. No central pulmonary emboli. Lymph nodes: No lymphadenopathy. Specifically no subcarinal adenopathy in the location of prior FDG avid lesion seen on 06/18/2021. CT. Mediastinum and marni: Normal esophagus. No mediastinal hematoma, collection or pneumomediastinum. Chest wall: There is increased soft tissue and intercostal edema adjacent to the displaced left eighth rib fracture (series 3 image 57). No subcutaneous or intramuscular hematoma. No soft tissue gas. Liver: Normal size. Normal capsule contour. There is diffuse low-attenuation of the liver parenchyma consistent with underlying hepatic steatosis. Focal fatty sparing adjacent to the gallbladder fossa. Bile ducts: There is extrahepatic bile duct dilation with the common bile duct measuring 14 mm in caliber (series 6 image 47), similar to 10/16/2023. No abnormal enhancement of the biliary mucosa. No calcified choledocholithiasis. No intrahepatic bile duct dilation. Gallbladder: No calcified gallstones. Normal caliber wall. Pancreas: Normal attenuation without ductal dilatation. Spleen: Normal. Adrenals: Normal. Kidneys: Normal size. Normal symmetric renal enhancement. No hydronephrosis. No perinephric edema. There is a 6 mm low-attenuation lesion in the posterior left kidney (coronal series 6 image 71), too small to characterize and likely cyst but slightly increased in size compared to 07/17/2021. Urinary Bladder: Normal. Vasculature: Atherosclerotic disease of the nonaneurysmal abdominal aorta. Origins of the celiac axis and SMA are widely patent. Normal caliber of IVC. The portal vein and hepatic veins are patent. Lymph Nodes: No lymphadenopathy. Bowel: Normal lower esophagus, stomach and duodenum. No air or fluid filled dilated loops of bowel to suggest obstruction. Small quantity of stool throughout the colon. Extensive sigmoid colon diverticulosis with no evidence of acute diverticulitis. Enteric contrast reaches the descending colon. Normal terminal ileum. Normal decompressed appendix. Focal 1.9 segment of bowel wall thickening along the lateral margin of the cecum (axial series 4 image 803), unchanged compared to 10/16/2023, and in the location of FDG avid abnormality on 06/18/2021. Peritoneum and retroperitoneum: No free fluid. No pneumoperitoneum. No loculated fluid collection or mesenteric inflammation. Abdominal wall: Normal. Reproductive organs: Normal uterus. No adnexal masses. Osseous structures: Slightly increased displacement of lateral left eighth rib fracture (series 4 image 350) compared to 04/18/2024. No additional acute osseous findings. No suspicious osseous lesions. Mild central canal narrowing at L4-5 secondary to disc bulge, endplate proliferative changes and facet arthropathy. Mild neural foraminal narrowing L4-5. Unchanged mild subchondral sclerosis and the bilateral femoral heads (coronal series 6 image 52), suggesting early underlying avascular necrosis without subchondral collapse. Procedure Note Marek Jimenez MD - 04/25/2024 EXAMINATION: CT Abdomen and Pelvis w/ Contrast, CT Chest w/ Contrast CLINICAL HISTORY: small cell lung cancer restaging exam-s/p chemo/RT forlimited stage. New gait imbalance. ? spinal lesion TECHNIQUE: Helical CT of the chest, abdomen and pelvis following theintravenous administration of 100 mL of Omnipaque 350. Oral contrast wasadministered. COMPARISON: MRI lumbar spine 04/22/2024. CT chest 04/18/2024. CT abdomenpelvis 10/16/2023. PET CT 06/18/2021. FINDINGS: Chest: Lungs and large airways: There is a background of COPD/emphysema. Smallareas of subpleural atelectasis within the left lower lobe and posterior leftlingula segment. No airspace opacity to suggest pneumonia. No suspiciouspulmonary nodules. There is a thin linear bandlike opacity within the right lowerlobe directly posterior to the fissure (series 3 image 44), not present on10/13/2023 but favored to represent atelectasis. Pleura: No pneumothorax. New small layering left pleural effusion. Heart/vasculature: Normal cardiac size. No pericardial effusion. Thereis coronary artery atherosclerotic disease. Normal caliber of the thoracicaorta with widely patent arch origins. No aortic dissection or acute aorticsyndrome. Atherosclerotic disease of the descending thoracic aorta with muralthrombus just above the hiatus with no flow-limiting stenosis. No centralpulmonary emboli. Lymph nodes: No lymphadenopathy. Specifically no subcarinal adenopathy inthe location of prior FDG avid lesion seen on 06/18/2021. CT. Mediastinum and marni: Normal esophagus. No mediastinal hematoma,collection or pneumomediastinum. Chest wall: There is increased soft tissue and intercostal edema adjacentto the displaced left eighth rib fracture (series 3 image 57). No subcutaneousor intramuscular hematoma. No soft tissue gas. Liver: Normal size. Normal capsule contour. There is diffuselow-attenuation of the liver parenchyma consistent with underlying hepatic steatosis. Focalfatty sparing adjacent to the gallbladder fossa. Bile ducts: There is extrahepatic bile duct dilation with the common bileduct measuring 14 mm in caliber (series 6 image 47), similar to 10/16/2023. No abnormal enhancement of the biliary mucosa. No calcifiedcholedocholithiasis. No intrahepatic bile duct dilation. Gallbladder: No calcified gallstones. Normal caliber wall. Pancreas: Normal attenuation without ductal dilatation. Spleen: Normal. Adrenals: Normal. Kidneys: Normal size. Normal symmetric renal enhancement. Nohydronephrosis. No perinephric edema. There is a 6 mm low-attenuation lesion in the posteriorleft kidney (coronal series 6 image 71), too small to characterize and likelycyst but slightly increased in size compared to 07/17/2021. Urinary Bladder: Normal. Vasculature: Atherosclerotic disease of the nonaneurysmal abdominalaorta. Origins of the celiac axis and SMA are widely patent. Normal caliber ofIVC. The portal vein and hepatic veins are patent. Lymph Nodes: No lymphadenopathy. Bowel: Normal lower esophagus, stomach and duodenum. No air or fluidfilled dilated loops of bowel to suggest obstruction. Small quantity of stool throughout the colon. Extensive sigmoid colon diverticulosis with noevidence of acute diverticulitis. Enteric contrast reaches the descending colon.Normal terminal ileum. Normal decompressed appendix. Focal 1.9 segment of bowel wall thickening along the lateral margin of thececum (axial series 4 image 803), unchanged compared to 10/16/2023, and in thelocation of FDG avid abnormality on 06/18/2021. Peritoneum and retroperitoneum: No free fluid. No pneumoperitoneum. Noloculated fluid collection or mesenteric inflammation. Abdominal wall: Normal. Reproductive organs: Normal uterus. No adnexal masses. Osseous structures: Slightly increased displacement of lateral left eighthrib fracture (series 4 image 350) compared to 04/18/2024. No additional acuteosseous findings. No suspicious osseous lesions. Mild central canal narrowing atL4-5 secondary to disc bulge, endplate proliferative changes and facetarthropathy. Mild neural foraminal narrowing L4-5. Unchanged mild subchondral sclerosisand the bilateral femoral heads (coronal series 6 image 52), suggestingearly underlying avascular necrosis without subchondral collapse. IMPRESSION Chest, abdomen and pelvis: 1. Increased displacement of the left eighth rib fracture, withincreased surrounding posttraumatic intercostal edema. 2. New small left pleural effusion. 3. Left lower lobe subsegmental atelectasis. 4. New linear band of airless lung within the right lower lobe, alsolikely atelectasis. 5. No evidence of metastatic disease. 6. Persistent abnormal bowel thickening involving the cecum, also FDGavid on 06/18/2021 PET/CT, concerning for colonic malignancy. Please correlatewith prior colonoscopy. 7. Hepatic steatosis. 8. Diverticulosis. Thank you for letting us participate in the care of this patient. If youare a health care provider and have any questions regarding this report,please contact the number below. For patients who have questions please contactthe health medical care administrator that requested your imaging first. Electronically signed by: Marek Jimenez MD, [facility]([phone]), at 04/25/2024 8:31 AM Mars Conley MD IMG CT ORDERABLES documented in this encounter Visit Diagnoses Not on filedocumented in this encounter Care Teams Gravity Meter Operator Relationship Specialty Start Date End Date Marco Antonio-Nini Landrum MD [address] [place] [id number] PCP - General 06/26/10 documented as of this encounter
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
--- OUTSIDE RECORDS SUMMARY | 2024-08-27 00:45 | XMS_ITS | Encounter Summary ---
Author Organization [facility] Address One [facility] [place] [address] Care Team Providers Care Labor Relations Specialist Name Role Phone Nini Machado MD Primary Care Provider [phone] Encounter Details Date Type Department Care Team (Late st Contact Info) Description 04/16/2024 Interpretation Only [address] [phone] [place] Carolyn ShashiBERNARDINO [facility] [address] [place] [address] Social History Tobacco Use Types Packs/Day Years [...] PM EST Office Visit Hematology/Oncology at [address] [phone] Mars Conley MD [facility] DR [place] [address] Cailin Marrero APRN [address] [place] [address] [place] [address] 09/07/2024 9:00 AM EST Office [place] [address] Raven Alvarado MD [facility] [place] [address] 10/04/2024 1:15 PM EST [place] [address] Feliciano Shay, [facility] [address] documented as of this encounter Procedures Procedure Name Priority Date/Time Associated Diagnosis Comments CT CHEST W CONTRAST STAT 04/16/2024 1 2:29 PM EDT documented in this encounter Results * CT Chest w Contrast (04/16/2024 12:29 PM EDT) PT CLASS O RAD ADMITDTTM [id number] RAD PT RAD MD INFO [id number]^[place] n^Carolyn^T RAD EXAM DESC CTCHW^CT Chest w/ Contrast^RIS RAD WORKSTATION ID [id number] RAD Anatomical Region Laterality Modality Chest Computed Tomogra phy 04/16/2024 12:2 8 PM EDT Impressions 04/16/2024 1:20 PM EDT 1. ??A very small amount of air within the left lateral chest wall accompanied by a few puncta of air just deep to the chest wall in the pericardial fat. No associated rib fractures or pneumothorax. 2. ??Pulmonary emphysema. 3. ??Liver steatosis. 4. ??Additional findings as above. Thank you for letting us participate in the care of this patient. ??If you are a health care provider and have any questions regarding this report, please contact the number below. ??For patients who have questions please contact the health care center manager that requested your imaging first. ? Narrative 04/16/2024 1:20 PM EDT EXAMINATION: CT Abdomen and Pelvis w/ Contrast, CT Chest w/ Contrast CLINICAL HISTORY: hypoxia, history of ca TECHNIQUE: Helical CT of the chest, abdomen, and pelvis following the intravenous administration of 100 mL of Omnipaque 350. ??Oral contrast was not administered. COMPARISON: None FINDINGS: Chest: Lungs and large airways: Apical predominant centrilobular emphysema. The airways are patent. Pleura: No effusion. Heart/vasculature: Normal. Lymph nodes: No enlarged lymph nodes. Mediastinum and marni: Normal. Chest wall: Small volume chest wall emphysema on the left between seventh and eighth ribs, and lateral to the ninth rib. Small puncta of air deep to the chest wall in the pericardial fat pad. Abdomen/pelvis: Liver: Normal size. Diffusely decreased attenuation without lesions. Bile ducts: Slight CBD prominence at approximately 10 mm. Gallbladder: No calcified gallstones. Normal caliber wall. Pancreas: Normal attenuation without ductal dilatation. Spleen: Normal. Adrenals: Normal. Kidneys: Tiny interpolar hypodensity, likely cyst. No suspicious masses or hydronephrosis. Urinary Bladder: Normal. Vasculature: Densely atheromatous abdominal aorta is normal in caliber. Lymph Nodes: No enlarged lymph nodes. Bowel: Nondilated, no wall thickening. Scattered sigmoid diverticula. Peritoneum and retroperitoneum: No free fluid. No pneumoperitoneum. No loculated fluid collection or mesenteric inflammation. Abdominal wall: Normal. Reproductive organs: Normal appearing uterus. No adnexal masses. A prominent fat-containing peritoneocele. Osseous structures: No suspicious lesions. Procedure Note Antoni Ramirez MD - 04/16/2024 EXAMINATION: CT Abdomen and Pelvis w/ Contrast, CT Chest w/ Contrast CLINICAL HISTORY: hypoxia, history of ca TECHNIQUE: Helical CT of the chest, abdomen, and pelvis following the intravenous administration of 100 mL of Omnipaque 350. Oral contrast wasnot administered. COMPARISON: None FINDINGS: Chest: Lungs and large airways: Apical predominant centrilobular emphysema. Theairways are patent. Pleura: No effusion. Heart/vasculature: Normal. Lymph nodes: No enlarged lymph nodes. Mediastinum and marni: Normal. Chest wall: Small volume chest wall emphysema on the left between seventhand eighth ribs, and lateral to the ninth rib. Small puncta of air deep to thechest wall in the pericardial fat pad. Abdomen/pelvis: Liver: Normal size. Diffusely decreased attenuation without lesions. Bile ducts: Slight CBD prominence at approximately 10 mm. Gallbladder: No calcified gallstones. Normal caliber wall. Pancreas: Normal attenuation without ductal dilatation. Spleen: Normal. Adrenals: Normal. Kidneys: Tiny interpolar hypodensity, likely cyst. No suspicious massesor hydronephrosis. Urinary Bladder: Normal. Vasculature: Densely atheromatous abdominal aorta is normal in caliber. Lymph Nodes: No enlarged lymph nodes. Bowel: Nondilated, no wall thickening. Scattered sigmoid diverticula. Peritoneum and retroperitoneum: No free fluid. No pneumoperitoneum. Noloculated fluid collection or mesenteric inflammation. Abdominal wall: Normal. Reproductive organs: Normal appearing uterus. No adnexal masses. Aprominent fat-containing peritoneocele. Osseous structures: No suspicious lesions. IMPRESSION 1. A very small amount of air within the left lateral chest wallaccompanied by a few puncta of air just deep to the chest wall in the pericardial fat.No associated rib fractures or pneumothorax. 2. Pulmonary emphysema. 3. Liver steatosis. 4. Additional findings as above. Thank you for letting us participate in the care of this patient. If youare a health care provider and have any questions regarding this report,please contact the number below. For patients who have questions please contactthe health care center manager that requested your imaging first. Carolyn Medellin POWER SHOVEL OPERATOR IMG CT ORDERABLES documented in this encounter Visit Diagnoses Not on filedocumented in this encounter Care Teams Labor Relations Specialist Relationship Specialty Start Date End Date Marco Antonio-Nini Landrum MD [address] [place] [address] PCP - General 06/26/10 documented as of this encounter
--- OUTSIDE RECORDS SUMMARY | 2024-08-27 00:45 | XMS_ITS | Encounter Summary ---
Author Organization [facility] Address [facility] [place] [address] Care Team Providers Care Communications Electrician Supervisor Name Role Phone Nini Machado MD Primary Care Provider Encounter Details Date Type Department Care Team (Latest Contact Info) Description 01/02/2024 Travel Social History Tobacco Use Types Packs/Day [...] place to sleep or slept in a custodial (including now)? No 06/20/2021 IPV Inpatient Questions [...] 2:00 PM EST Office Visit Hematology/Oncology at [address] [phone] aMrs Conley MD [facility] DR [place] [address] Cailin Marrero APRN [address] [place] [address] DR [place] [address] 09/07/2024 9:00 AM EST Office [place] [phone] Raven Alvarado MD [facility] [place] [address] 10/04/2024 1:15 PM EST Office [place] [phone] Feliciano Shay, [facility] [place] [address] documented as of this encounter Visit Diagnoses Not on filedocumented in this encounter Care Teams Communications Electrician Supervisor Relationship Specialty Start Date End Date Marco Antonio-Nini Landrum MD [address] [address] PCP - General 06/26/10 documented as of this encounter
--- OUTSIDE RECORDS SUMMARY | 2024-08-27 00:45 | XMS_ITS | Encounter Summary ---
Author Organization [facility] [place] [address] Care Team Providers Care Water Plant Pump Operator Supervisor Name Role Phone Nini Machado MD Primary Care Provider [phone] Encounter Details Date Type Department Care Team (Late st Contact Info) Description 05/11/2024 8:30 AM EDT Laboratory [place] [phone] Social History Tobacco Use Types Packs/Day Years [...] 2:00 PM EST Office Visit Hematology/Oncology at [address] [phone] Mars Conley MD [facility] DR HEMATOLOGY [place] [address] Cailin Marrero APRN [address] [place] [address] DR HEMATOLOGY [place] [address] 09/07/2024 9:00 AM EST Office [place] [address] Raven Alvarado MD [facility] [place] [address] 10/04/2024 1:15 PM EST Office [place] [address] Feliciano Shay, [facility] [place] [address] documented as of this encounter Visit Diagnoses Not on filedocumented in this encounter Care Teams Water Plant Pump Operator Supervisor Relationship Specialty Start Date End Date Marco Antonio-Nini Landrum MD [address] [address] PCP - General 06/26/10 documented as of this encounter
--- OUTSIDE RECORDS SUMMARY | 2024-08-27 00:45 | XMS_ITS | Encounter Summary ---
Author Organization [facility] Address [facility] [place] [address] Care Team Providers Care Radiation Protection Specialist Name Role Phone Nini Machado MD Primary Care Provider [phone] Encounter Details Date Type Department Care Team (Late st Contact Info) Description 04/29/2024 Interpretation Only [facility] [address] [place] [phone] Nini Machado MD [address] [facility] 3 [place] [address] Social History Tobacco Use Types [...] 2:00 PM EST Office Visit Hematology/Oncology at [address] [phone] Mars Conley MD [facility] DR [place] [address] Cailin Marrero APRN [address] [place] [address] DR HEMATOLOGY [place] [address] 09/07/2024 9:00 AM EST Office [place] [address] Raven Alvarado MD [facility] [place] [address] 10/04/2024 1:15 PM EST [place] [address] Feliciano Shay, [facility] [place] [address] documented as of this encounter Procedures Procedure Name Priority Date/Time Associated Diagnosis Comments MRI BRAIN WWO CONTRAST (GENERIC) Routine 04/29/2024 2:53 PM EDT documented in this encounter Results * MRI Brain wwo Contrast (Generic) (04/29/2024 2:53 PM EDT) PT CLASS O RAD ADMITDTTM [id number] [facility] PT RAD INFO [id number]^Young- Landrum^Nini RAD EXAM DESC MRBWWO^MRI Brain w/ + w/o Contrast^RIS [facility] WORKSTATION ID [id number] [facility] Anatomical Region Laterality Modality Head Magnetic Resonan ce 04/29/2024 1:46 PM EDT Impressions 04/30/2024 9:55 AM EDT Posttreatment changes as above. No new metastatic lesion or other acute change. Thank you for letting us participate in the care of this patient. ??If you are a health care provider and have any questions regarding this report, please contact the number below. ??For patients who have questions please contact the health childcare center director that requested your imaging first. ? Electronically signed by: Anderson Mcnally MD, [facility] ([phone]), at 04/30/2024 9:55 AM Narrative 04/30/2024 9:55 AM EDT EXAMINATION: MRI Brain w/ + w/o Contrast CLINICAL HISTORY: new gait deficit and imbalance. hx small cell lung cancer and whole brain radiation. TECHNIQUE: MRI of the brain was performed before and after the intravenous administration of 7cc Gadavist. COMPARISON: 06/11/2021, 10/13/2023, 04/21/2023, 10/14/2022 FINDINGS: There [...] old, small posterior left cerebellar infarct, unchanged. Procedure Note Anderson Mcnally MD - 04/30/2024 EXAMINATION: MRI Brain w/ + w/o Contrast CLINICAL HISTORY: new gait deficit and imbalance. hx small cell lungcancer and whole brain radiation. TECHNIQUE: MRI of the brain was performed before and after the intravenousadministration of 7cc Gadavist. COMPARISON: 06/11/2021, 10/13/2023, 04/21/2023, 10/14/2022 FINDINGS: There is a degree of generalized volume loss and ventriculomegaly. The ventricles are slightly larger than on the prior study. T2 signalalteration is present throughout the white matter both cerebral hemispheres, consistentwith prior treatment. There is no intracranial mass, mass effect, or shift.There is no abnormal enhancement. Posterior fossa structures and craniocervicaljunction are unremarkable. Skull base and pituitary are normal. The majorintracranial flow voids are normal. 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 IMPRESSION Posttreatment changes as above. No new metastatic lesion or other acutechange. Thank you for letting us participate in the care of this patient. If youare a health care provider and have any questions regarding this report,please contact the number below. For patients who have questions please contactthe health childcare center director that requested your imaging first. Electronically signed by: Anderson Mcnally MD, [facility]([phone]), at 04/30/2024 9:55 AM Nini Machado MD IMG MRI ORDERABLES documented in this encounter Visit Diagnoses Not on filedocumented in this encounter Care Teams Radiation Protection Specialist Relationship Specialty Start Date End Date Nini Machado MD [address] [place] [address] PCP - General 06/26/10 documented as of this encounter
--- OUTSIDE RECORDS SUMMARY | 2024-08-27 00:45 | XMS_ITS | Encounter Summary ---
Author Organization [facility] Address [facility] [facility] [place] [address] Care Team Providers Care Patient Scheduler Name Role Phone Nini Machado MD Primary Care Provider [phone] Reason for Visit * Reason Comments Post Op Encounter Details Date Type Department Care Team (Late st Contact Info) Description 02/04/2024 4:00 PM EDT Office [place] [address] Wei Ryan MD [facility] [place] [address] Pseudophakia Social History Tobacco Use Types Packs/Day [...] place to sleep or slept in a chcf (including now)? No 06/20/2021 DH IPV Inpatient [...] this encounter Patient Instructions * Patient Instructions* Wei Ryan MD - 02/04/2024 4:00 PM EDT Instructions 1 month after cataract surgery Drops: - Stop all post operative eye drops - Continue any termite exterminator eye drops such as glaucoma medications Other instructions and precautions - Fill glasses prescription if one was given - Please call the eye clinic,, for any significant changes in vision, new flashes or floaters or eye pain Caution with driving as you recover documented in this encounter Progress Notes * Wei Ryan MD - 02/04/2024 4:00 PM EDT Assessment: Encounter Diagnosis Name Primary? Pseudophakia Stefanie Camacho Silvana with CEIOL OD 12/25/2023 Doing well with a normal post operative appearance. Stefanie is pleased with the results of surgery and has no complaints or problems. Cataract OS: follow for now Plan: - Subjective refraction given - Stop all post operative drops - prison post op risks included retinal detachment and posterior capsular opacification reviewed. Follow up: - 6 months or as needed. Upon Return CEE documented in this encounter Plan of Treatment Upcoming Encounters Date Type Department Care Team (Late st Contact Info) Description 08/30/2024 2:00 PM EST Office Visit Hematology/Oncology at [address] [phone] Mars Conley MD [facility] DR HEMAT[place]Y [place] [address] Cailin Marrero APRN [address] [place] [address] DR HEMATOLOGY [place] [address] 09/07/2024 9:00 AM EST Office [place] [phone] Raven Alvarado MD [facility] [place] [address] 10/04/2024 1:15 PM EST [place] [phone] Feliciano Shay, [facility] [place] [address] documented as of this encounter Visit Diagnoses Diagnosis Pseudophakia Lens replaced by other means documented in this encounter Care Teams Patient Scheduler Relationship Specialty Start Date End Date Marco Antonio-Nini Landrum MD [address] [address] PCP - General 06/26/10 documented as of this encounter
--- OUTSIDE RECORDS SUMMARY | 2024-08-27 00:45 | XMS_ITS | Encounter Summary ---
Author Organization [facility] Address [facility] [place] [address] Care Team Providers Care Rollway Worker Name Role Phone Nini Machado MD Primary Care Provider [phone] Encounter Details Date Type Department Care Team (Late st Contact Info) Description 04/23/2024 Interpretation Only [address] [phone] Mars Conley MD [facility] DR [place] [address] Social History Tobacco Use Types [...] place to sleep or slept in a mcc (including now)? No 06/20/2021 IPV Inpatient Questions [...] 2:00 PM EST Office Visit Hematology/Oncology at [address] [phone] Mars Conley MD [facility] DR [place] [address] Cailin Marrero APRN [address] [place] [address] DR [place] [address] 09/07/2024 9:00 AM EST Office [place] [address] Raven Alvarado MD [facility] [place] [address] 10/04/2024 1:15 PM EST [place] [address] Feliciano Shay, [facility] [place] [address] documented as of this encounter Procedures Procedure Name Priority Date/Time Associated Diagnosis Comments CT CHEST W CONTRAST Routine 04/23/2024 1 1:24 AM EDT documented in this encounter Results * CT Chest w Contrast (04/23/2024 11:24 AM EDT) PT CLASS O RAD ADMITDTTM [id number] RAD PT RAD MD INFO [id number]^Fuld^A lexander RAD EXAM DESC CTCHW^CT Chest w/ Contrast^RIS [facility] WORKSTATION ID [id number] RAD Anatomical Region Laterality Modality Chest Computed Tomogra phy 04/23/2024 10:0 7 AM [...] who have questions please contact the health restorative care technician that requested your imaging first. ? Narrative 04/25/2024 8:31 AM EDT EXAMINATION: CT [...] patients who have questions please contactthe health restorative care technician that requested your imaging first. Mars Conley MD IMG CT ORDERABLES documented in this encounter Visit Diagnoses Not on filedocumented in this encounter Care Teams Rollway Worker Relationship Specialty Start Date End Date Nini Machado MD [address] [place] [address] PCP - General 06/26/10 documented as of this encounter
--- OUTSIDE RECORDS SUMMARY | 2024-08-27 00:45 | XMS_ITS | Encounter Summary ---
Author Organization [facility] Address One [facility] [place] [address] Care Team Providers Care Machine Pan Greaser Name Role Phone Nini Machado MD Primary Care Provider [phone] Encounter Details Date Type Department Care Team (Latest Contact Info) Description 12/26/2023 Travel Social History Tobacco Use Types Packs/Day [...] place to sleep or slept in a retirement (including now)? No 06/20/2021 IPV Inpatient Questions [...] 2:00 PM EST Office Visit Hematology/Oncology at [address] [phone] Mars Conley MD [facility] DR HEMATOLOGY [place] [address] Cailin Marrero APRN [address] [place] [address] DR HEMATOLOGY [place] [address] 09/07/2024 9:00 AM EST Office [place] [phone] Raven Alvarado MD [facility] [place] [address] 10/04/2024 1:15 PM EST Office [place] [phone] Feliciano Shay, [facility] [place] [address] documented as of this encounter Visit Diagnoses Not on filedocumented in this encounter Care Teams Machine Pan Greaser Relationship Specialty Start Date End Date Marco Antonio-Nini Landrum MD [address] [address] PCP - General 06/26/10 documented as of this encounter
--- OUTSIDE RECORDS SUMMARY | 2024-08-27 00:45 | XMS_ITS | Encounter Summary ---
Author Organization [facility] Address [facility] [place] [address] Care Team Providers Care Subgrade Roller Operator Name Role Phone Nini Machado MD Primary Care Provider [phone] Encounter Details Date Type Department Care Team (Late st Contact Info) Description 04/18/2024 Interpretation Only [facility] [address] [place] [phone] CantonOctaviano MD [address] [place], [place] [phone] Social History Tobacco Use Types Packs/Day Years [...] in a chcf (including now)? No 06/20/2021 IPV Inpatient Questions [...] 2:00 PM EST Office Visit Hematology/Oncology at [address] [phone] Mars Conley MD [facility] DR HEMATOLOGY [place] [address] Cailin Marrero APRN [address] [place] [address] DR HEMATOLOGY [place] [address] 09/07/2024 9:00 AM EST Office Visit [place] [address] Raven Alvarado MD [facility] [place] [address] 10/04/2024 1:15 PM EST Office [place] [address] Feliciano Shay, [facility] [place] [address] documented as of this encounter Procedures Procedure Name Priority Date/Time Associated Diagnosis Comments CT CHEST WO CONTRAST (GENERIC) STAT 04/18/2024 5:40 PM EDT documented in this encounter Results * CT Chest wo Contrast (Generic) (04/18/2024 5:40 PM EDT) PT CLASS E RAD ADMITDTTM [id number] RAD PT RAD MD INFO [id number]^Broadw ater^Octaviano^Jaxson k RAD EXAM DESC CTCHST^CT Chest w/o Contrast^RIS RAD WORKSTATION ID [id number] RAD Anatomical Region Laterality Modality Chest Computed Tomogra phy 04/18/2024 5:40 PM EDT Impressions 04/18/2024 6:36 PM EDT 1. ??Minimally displaced left posterolateral eighth rib fracture. 2. ??Trace left pneumothorax. 3. ??Hepatic steatosis. Preliminary report signed by: Leonid Kim MD at 04/18/2024 5:57 PM I have personally reviewed the image(s) and the resident's interpretation and agree with the findings, MARIZOL VALVERDE MD at 04/18/2024 6:36 PM Thank you for letting us participate in the care of this patient. ??If you are a health care provider and have any questions regarding this report, please contact the number below. ??For patients who have questions please contact the health adult live in caregiver that requested your imaging first. ? Electronically signed by: MARIZOL VALVERDE MD, [facility] ([phone]), at 04/18/2024 6:36 PM Narrative 04/18/2024 6:36 PM EDT EXAMINATION: CT Chest w/o Contrast CLINICAL HISTORY: Left chest wall pain TECHNIQUE: Helical CT of the chest without intravenous contrast administration. Thin-section reconstructions as well as coronal and sagittal reformatted images were generated. COMPARISON: CT chest 04/16/2024, 10/13/2023 FINDINGS: Pulmonary parenchyma: No suspicious pulmonary lesion or acute airspace disease. Centrilobular emphysema. There is mild bibasilar atelectasis. Airways: No central endobronchial abnormality. Pleura: Subtle apical pneumothorax with additional component at the left lung base (series 4, image 11 and 48). No pleural effusion. No right pneumothorax. Lymph nodes: No lymphadenopathy. Heart and vasculature: Normal size of the heart. No significant pericardial effusion. Normal caliber of the thoracic aorta. Coronary artery and aortic calcifications. Other mediastinal structures: No significant findings. Upper abdomen: Hepatic parenchymal hypoattenuation consistent with steatosis. Calcified atheromatous plaque in the imaged abdominal aorta. Skeletal structures: Minimally displaced posterolateral left eighth rib fracture. Procedure Note Marizol Valverde MD - 04/18/2024 EXAMINATION: CT Chest w/o Contrast CLINICAL HISTORY: Left chest wall pain TECHNIQUE: Helical CT of the chest without intravenous contrastadministration. Thin-section reconstructions as well as coronal and sagittal reformattedimages were generated. COMPARISON: CT chest 04/16/2024, 10/13/2023 FINDINGS: Pulmonary parenchyma: No suspicious pulmonary lesion or acute airspacedisease. Centrilobular emphysema. There is mild bibasilar atelectasis. Airways: No central endobronchial abnormality. Pleura: Subtle apical pneumothorax with additional component at the leftlung base (series 4, image 11 and 48). No pleural effusion. No rightpneumothorax. Lymph nodes: No lymphadenopathy. Heart and vasculature: Normal size of the heart. No significantpericardial effusion. Normal caliber of the thoracic aorta. Coronary artery andaortic calcifications. Other mediastinal structures: No significant findings. Upper abdomen: Hepatic parenchymal hypoattenuation consistent withsteatosis. Calcified atheromatous plaque in the imaged abdominal aorta. Skeletal structures: Minimally displaced posterolateral left eighth rib fracture. IMPRESSION 1. Minimally displaced left posterolateral eighth rib fracture. 2. Trace left pneumothorax. 3. Hepatic steatosis. Preliminary report signed by: Leonid Kim MD at 04/18/2024 5:57 PM I have personally reviewed the image(s) and the resident's interpretationand agree with the findings, MARIZOL VALVERDE MD at 04/18/2024 6:36 PM Thank you for letting us participate in the care of this patient. If youare a health care provider and have any questions regarding this report,please contact the number below. For patients who have questions please contactthe health adult live in caregiver that requested your imaging first. Electronically signed by: MARIZOL VALVERDE MD, [facility]([phone]), at 04/18/2024 6:36 PM Octaviano Ray MD IMG CT ORDERABLES documented in this encounter Visit Diagnoses Not on filedocumented in this encounter Care Teams Subgrade Roller Operator Relationship Specialty Start Date End Date Marco Antonio-Nini Landrum MD [address] [place] [address] PCP - General 06/26/10 documented as of this encounter
--- OUTSIDE RECORDS SUMMARY | 2024-08-27 00:45 | XMS_ITS | Encounter Summary ---
Author Organization [facility] Address [facility] [place] [address] Care Team Providers Care Event Executive Name Role Phone Nini Machado MD Primary Care Provider Encounter Details Date Type Department Care Team (Late st Contact Info) Description 04/22/2024 Interpretation Only [address] [phone] Mars Conley MD [facility] DR [place] [address] Social History Tobacco Use Types [...] 2:00 PM EST Office Visit Hematology/Oncology at [address] [address] Mars Conley MD [facility] DR [place] [address] Caliin Marrero APRN [address] [place] [address] [place] [address] 09/07/2024 9:00 AM EST Office [place] [address] Raven Alvarado MD [facility] [place] [address] 10/04/2024 1:15 PM EST Office [place] [address] Feliciano Shay, [facility] [place] [address] documented as of this encounter Procedures Procedure Name Priority Date/Time Associated Diagnosis Comments MRI PELVIS SOFT TISSUE (GI PORK CUTLET MAKER) WWO CONTRAST Routine 04/22/2024 1:42 PM EDT documented in this encounter Results * MRI Pelvis Soft Tissue (GI PORK CUTLET MAKER) wwo Contrast (04/22/2024 1:42 PM EDT) PT CLASS O RAD ADMITDTTM [id number] [facility] PT [facility] MD INFO [id number]^Fuld^A lexander RAD EXAM DESC MRPELWW^MRI Pelvis w/ + w/o Contrast^RIS [facility] WORKSTATION ID [id number] [facility] Anatomical Region Laterality Modality Pelvis Magnetic Resonan ce 04/22/2024 12:0 4 PM EDT Impressions 04/26/2024 11:07 AM EDT No evidence for metastatic disease to the sacrum. Thank you for letting us participate in the care of this patient. ??If you are a health care provider and have any questions regarding this report, please contact the number below. ??For patients who have questions please contact the health district manager primary care sales that requested your imaging first. ? Narrative 04/26/2024 11:07 AM EDT EXAMINATION: MRI Pelvis w/ + w/o Contrast CLINICAL HISTORY: H/o small cell lung cancer in remission but w/ new gait disturbance (wide based) Concern for lumbosacral metastasis. TECHNIQUE: MRI of the sacrum performed with and without contrast COMPARISON: None FINDINGS: No abnormal spinal enhancement. Normal marrow signal. Right-sided discal edema/enhancement at L5-S1 likely degenerative change . No fractures. Procedure Note Yemi Granados MD - 04/26/2024 EXAMINATION: MRI Pelvis w/ + w/o Contrast CLINICAL HISTORY: H/o small cell lung cancer in remission but w/ newgait disturbance (wide based) Concern for lumbosacral metastasis. TECHNIQUE: MRI of the sacrum performed with and without contrast COMPARISON: None FINDINGS: No abnormal spinal enhancement. Normal marrow signal.Right-sided discal edema/enhancement at L5-S1 likely degenerative change . Nofractures. IMPRESSION No evidence for metastatic disease to the sacrum. Thank you for letting us participate in the care of this patient. If youare a health care provider and have any questions regarding this report,please contact the number below. For patients who have questions please contactthe health district manager primary care sales that requested your imaging first. Mars Conley MD IMG MRI ORDERABLES documented in this encounter Visit Diagnoses Not on filedocumented in this encounter Care Teams Event Executive Relationship Specialty Start Date End Date Marco Antonio-Nini Landrum MD [address] [address] PCP - General 06/26/10 documented as of this encounter
--- OUTSIDE RECORDS SUMMARY | 2024-08-27 00:45 | XMS_ITS | Encounter Summary ---
Author Organization [facility] Address [facility] [address] Care Team Providers Care Dispatcher Ship Pilot Name Role Phone Nini Machado MD Primary Care Provider [phone] Encounter Details Date Type Department Care Team (Late st Contact Info) Description 04/16/2024 Interpretation Only [address] [phone] [place] Carolyn ShashiBERNARDINO [facility] [address] [place] [address] Social History Tobacco Use Types [...] PM EST Office Visit Hematology/Oncology at [address] [phone] [facility] DR HEMATOLOGY [place] [address] Cailin Marrero APRN [address] [place] [address] DR HEMATOLOGY [place] [address] 09/07/2024 9:00 AM EST Office Visit [place] [address] [facility] [place] [address] 10/04/2024 1:15 PM EST Office [place] [address] Feliciano Shay, [facility] [place] [address] documented as of this encounter Procedures Procedure Name Priority Date/Time Associated Diagnosis Comments CT ABDOMEN AND PELVIS W CONTRAST STAT 04/16/2024 12:29 PM EDT documented in this encounter Results * CT Abdomen & Pelvis w Contrast (04/16/2024 12:29 PM EDT) PT CLASS O RAD ADMITDTTM [id number] RAD PT [facility] MD INFO [id number]^[place] n^Carolyn^T RAD EXAM DESC CTAPW^CT Abdomen and Pelvis w/ Contrast^RIS [facility] WORKSTATION ID [id number] [facility] Anatomical Region Laterality Modality Abdomen, Pelvis Computed Tomogra phy 04/16/2024 12:2 8 PM [...] who have questions please contact the health residential caregiver that requested your imaging first. ? Electronically signed by: Antoni Ramirez MD, [facility] ([phone]), at 04/16/2024 1:20 PM Narrative 04/16/2024 1:20 PM EDT EXAMINATION: CT [...] patients who have questions please contactthe health residential caregiver that requested your imaging first. Carolyn Medellin APRN IMG CT ORDERABLES documented in this encounter Visit Diagnoses Not on filedocumented in this encounter Care Teams Dispatcher Ship Pilot Relationship Specialty Start Date End Date Nini Machado MD [address] [place] [address] PCP - General 06/26/10 documented as of this encounter
--- OUTSIDE RECORDS SUMMARY | 2024-08-27 00:45 | XMS_ITS | Encounter Summary ---
Author Organization [facility] Address [facility] [place] [address] Care Team Providers Care Closing Manager Name Role Phone Nini Machado MD Primary Care Provider [phone] Encounter Details Date Type Department Care Team (Late st Contact Info) Description 05/07/2024 Orders [place] [address] Sancho Avery MD [facility] [place] [address] Small cell carcinoma of lung, unspecified laterality, unspecified part of lung Social History Tobacco Use Types Packs/Day Years [...] place to sleep or slept in a skilled nursing (including now)? No 06/20/2021 IPV Inpatient Questions [...] 2:00 PM EST Office Visit Hematology/Oncology at [address] [phone] Mars Conley MD [facility] DR [place] [address] Cailin Marrero APRN [address] [place] [address] DR [place]EM[place]Y [place] [address] 09/07/2024 9:00 AM EST Office [place] [address] Raven Alvarado MD [facility] [place] [address] 10/04/2024 1:15 PM EST Office [place] [address] Feliciano Shay, [facility] [place] [address] documented as of this encounter Visit Diagnoses Diagnosis Small cell carcinoma of lung, unspecified laterality, unspecified part of lung documented in this encounter Care Teams Closing Manager Relationship Specialty Start Date End Date Marco Antonio-Nini Landrum MD [address] [address] PCP - General 06/26/10 documented as of this encounter
--- OUTSIDE RECORDS SUMMARY | 2024-08-27 00:45 | XMS_ITS | Encounter Summary ---
Author Organization [facility] [place] [address] Care Team Providers Care Portrait Photographer Name Role Phone Nini Machado MD Primary Care Provider [phone] Reason for Referral * Diagnostic Test (Routine) - Authorized Specialty Diagnoses / Procedures Referred By Contac t Referred To Contact Radiology Diagnoses Small cell carcinoma of lung Gait instability Procedures MRI Sacrum wwo Contrast Mars Conley MD [facility] DR HEMATOLOGY [place] [address] Referral ID Status Reason Start Date Expiration Date Visits Requested Visits Authorized [id number] Authorized Specialty Service Requested 04/14/2024 10/12/2025 1 1 * Diagnostic Test (Routine) - Authorized Specialty Diagnoses / Procedures Referred By Contac t Referred To Contact Radiology Diagnoses Small cell carcinoma of lung Gait instability Procedures MRI Lumbar Spine wwo Contrast Mars Conley MD [facility] DR HEMATOLOGY [place] [address] Referral ID Status Reason Start Date Expiration Date Visits Requested Visits Authorized [id number] Authorized Specialty Service Requested 04/14/2024 10/12/2025 1 1 * Diagnostic Test (Routine) - Authorized Specialty Diagnoses / Procedures Referred By Contac t Referred To Contact Radiology Diagnoses Small cell carcinoma of lung Gait instability Procedures CT Chest Abdomen Pelvis w Contrast (Generic) Mars Conley MD [facility] HEMATOLOGY [place] [address] Referral ID Status Reason Start Date Expiration Date Visits Requested Visits Authorized [id number] Authorized Specialty Service Requested 04/14/2024 10/12/2025 1 1 Encounter Details Date Type Department Care Team (Late st Contact Info) Description 04/14/2024 Orders Only Hematology [place] [address] Mars Conley MD [facility] HEMATOLOGY [place] [address] Small cell carcinoma of lung; Gait instability Social History Tobacco Use Types Packs/Day Years [...] 2:00 PM EST Office Visit Hematology/Oncology at [address] [phone] Mars Conley MD [facility] DR HEMATOLOGY [place] [address] Cailin Marrero APRN [address] [place] [address] DR HEMATOLOGY [place] [address] 09/07/2024 9:00 AM EST Office Visit [place] [address] Raven Alvarado MD [facility] [place] [address] 10/04/2024 1:15 PM EST Office [place] [address] Feliciano Shay, [facility] [place] [address] Scheduled Orders Name Type Priority Associated Diagnoses Orde r Schedule CT Chest Abdomen Pelvis w Contrast (Generic) Imaging Routine Small cell carcinoma of lung Gait instability Expected: 04/21/2024 (Approximate), Expires: 04/14/2025 MRI Lumbar Spine wwo Contrast Imaging Routine Small cell carcinoma of lung Gait instability Expected: 04/21/2024 (Approximate), Expires: 10/21/2024 MRI Sacrum wwo Contrast Imaging Routine Small cell carcinoma of lung Gait instability Expected: 04/21/2024 (Approximate), Expires: 10/21/2024 documented as of this encounter Visit Diagnoses Diagnosis Small cell carcinoma of lung Malignant neoplasm of bronchus and lung, unspecified site Gait instability Abnormality of gait documented in this encounter Care Teams Portrait Photographer Relationship Specialty Start Date End Date Marco Antonio-Nini Landrum MD [address] [address] PCP - General 06/26/10 documented as of this encounter
--- OUTSIDE RECORDS SUMMARY | 2024-08-27 00:45 | XMS_ITS | Encounter Summary ---
Author Organization [facility] Address One [facility] [address] Care Team Providers Care Ramp Flight Attendant Name Role Phone Nini Machado MD Primary Care Provider [phone] Encounter Details Date Type Department Care Team (Late st Contact Info) Description 04/19/2024 Interpretation Only [address] [phone] Unknown None Social History Tobacco [...] place to sleep or slept in a long-term (including now)? No 06/20/2021 IPV Inpatient Questions [...] 2:00 PM EST Office Visit Hematology/Oncology at [address] [phone] Mars Conley MD [facility] [place] [address] Cailin Marrero APRN [address] [place] [address] [place] [address] 09/07/2024 9:00 AM EST Office [place] [address] Raven Alvarado MD [facility] [place] [address] 10/04/2024 1:15 PM EST [place] [address] Feliciano Shay, [facility] [place] [address] Pending Results Name Type Priority Associated Diagnoses Date /Time US Guided Needle Placement Imaging Routine 04/19/2024 2:04 PM EDT documented as of this encounter Visit Diagnoses Not on filedocumented in this encounter Care Teams Ramp Flight Attendant Relationship Specialty Start Date End Date Marco Antonio-Nini Landrum MD [address] [place] [address] PCP - General 06/26/10 documented as of this encounter
--- OUTSIDE RECORDS SUMMARY | 2024-08-27 00:45 | XMS_ITS | Encounter Summary ---
Author Organization [facility] Address One [facility] [place] [address] Care Team Providers Care Court Abstractor Name Role Phone Nini Machado MD Primary Care Provider [phone] Encounter Details Date Type Department Care Team (Late st Contact Info) Description 04/16/2024 Interpretation Only [address] [phone] [place] Carolyn [facility]BERNARDINO [facility] [address] [place] [address] Social History Tobacco Use Types [...] 2:00 PM EST Office Visit Hematology/Oncology at [address] [phone] Mars Conley MD [facility] DR HEMATOLOGY [place] [address] Cailin Marrero APRN [address] [place] [address] DR [place] [address] 09/07/2024 9:00 AM EST Office [place] [address] Raven Alvarado MD [facility] [place] [address] 10/04/2024 1:15 PM EST Office [place] [address] Feliciano Shay, [facility] [place] [address] documented as of this encounter Visit Diagnoses Not on filedocumented in this encounter Care Teams Court Abstractor Relationship Specialty Start Date End Date Marco Antonio-Nini Landrum MD [address] [address] PCP - General 06/26/10 documented as of this encounter
--- OUTSIDE RECORDS SUMMARY | 2024-08-27 00:45 | XMS_ITS | Encounter Summary ---
Author Organization [facility] Address [facility] [place] [address] Care Team Providers Care Tucking Machine Operator Name Role Phone Nini Machado MD Primary Care Provider [phone] Reason for Visit * Reason Comments Post Op Encounter Details Date Type Department Care Team (Late st Contact Info) Description 01/02/2024 3:15 PM EDT Office [place] [address] Wei Ryan MD [facility] [place] [place] [address] Pseudophakia Social History Tobacco Use Types Packs/Day [...] place to sleep or slept in a prison (including now)? No 06/20/2021 DH IPV Inpatient [...] * Patient Instructions* Wei Ryan MD - 01/02/2024 3:15 PM EDT 1 week post cataract instruction sheet for Wei Ryan MD - Stop Moxifloxacin eye drop (loza cap) - Continue prednisolone acetate (pink or white cap) and ketorolac (sharp) three times a day in the operative eye until follow up appointment or until they run out. - Can stop wearing eye shield at night - Can generally resume normal activity, but still avoid any activities which could result in an injury to the eye - Call the eye clinic ([phone]) for any eye problems (increasing pain, decreasing vision, new flashes or new floaters) - Caution with driving as your eye recovers from cataract surgery documented in this encounter Progress Notes * Wei Ryan MD - 01/02/2024 3:15 PM EDT Assessment: Encounter Diagnosis Name Primary? Pseudophakia Stefanie Pina is status post cataract surgery last week Doing well with a normal post operative appearance. Plan: - Prednisolone acetate 1% tid in operative eye for 3 weeks - Stop Moxifloxicin - Ketorolac tid in operative eye for 3 weeks Follow up: - ~3 weeks or as needed. Upon Return IOP OU MR OU Dilate operative eye documented in this encounter Plan of Treatment Upcoming Encounters Date Type Department Care Team (Late st Contact Info) Description 08/30/2024 2:00 PM EST Office Visit Hematology/Oncology at [address] [phone] Mars Conley MD [facility] DR [place] [address] Cailin Marrero BLEACH SUPERVISOR [address] [place] [address] [place] [address] 09/07/2024 9:00 AM EST Office [place] [phone] Raven Alvarado MD [facility] [place] [address] 10/04/2024 1:15 PM EST Office [place] [phone] Feliciano Shay, [facility] [place] [address] documented as of this encounter Visit Diagnoses Diagnosis Pseudophakia Lens replaced by other means documented in this encounter Care Teams Tucking Machine Operator Relationship Specialty Start Date End Date Marco Antonio-Nini Landrum MD [address] [place] [address] [address] [place] [address] PCP - General 06/26/10 documented as of this encounter
--- OUTSIDE RECORDS SUMMARY | 2024-08-27 00:45 | XMS_ITS | Encounter Summary ---
Author Organization [facility] Address [facility] [place] [address] Care Team Providers Care Helmet Binder Name Role Phone Nini Machado MD Primary Care Provider [phone] Encounter Details Date Type Department Care Team (Latest Contact Info) Description 02/04/2024 Travel Social History Tobacco Use Types Packs/Day [...] 2:00 PM EST Office Visit Hematology/Oncology at [address] [phone] Mars Conley MD [facility] DR HEMATOLOGY [place] [address] Cailin Marrero APRN [address] [place] [address] DR [place] [address] 09/07/2024 9:00 AM EST Office [place] [phone] Raven Alvarado MD [facility] [place] [address] 10/04/2024 1:15 PM EST Office [place] [phone] Feliciano Shay, [facility] [place] [address] documented as of this encounter Visit Diagnoses Not on filedocumented in this encounter Care Teams Helmet Binder Relationship Specialty Start Date End Date Marco Antonio-Nini Landrum MD [address] [address] PCP - General 06/26/10 documented as of this encounter
--- OUTSIDE RECORDS SUMMARY | 2024-08-27 00:45 | XMS_ITS | Encounter Summary ---
Author Organization [facility] Address [facility] [place] [address] Care Team Providers Care Rigging Up Man Name Role Phone Nini Machado MD Primary Care Provider [phone] Encounter Details Date Type Department Care Team (Late st Contact Info) Description 05/10/2024 12:27 PM EDT - 05/10/2024 11:59 PM EDT Hospital Encounter XRay at [address] [place] [address] Mars Conley MD [facility] [place] [address] Small cell carcinoma of lung; Ataxia Discharge [...] place to sleep or slept in a detention (including now)? No 06/20/2021 DH IPV Inpatient [...] file documented as of this encounter Discharge Instructions * Patient Instructions* Elicia Kramer Debbie - 05/10/2024 1:32 PM EDT Lumbar Puncture Discharge Instructions Treatment of post-procedure symptoms: Headache A headache after a lumbar puncture is not uncommon If you experience a headache: Lie flat Drink plenty of fluids Take Tylenol as directed on the bottle Drink caffeinated beverage If headache does not improve after 24 hours contact the Neuroradiology department Back pain/wound care: You may experience mild back soreness at the puncture site Take Tylenol as directed on the bottle Rest and apply ice/heat for comfort Wound care: Check the puncture site for drainage. If you see drainage, apply pressure to the area and call yourdoctor right away. Watch the wound for signs of infection such as pain, swelling, redness or foul odor. If you see anyof these signs, call your doctor. Remove the bandage in 24 hours. Diet & Activity: Return to your regular diet. Drink 8 glasses of water a day. This will lower your risk of getting a headache. Lay flat with your head slightly elevated on a pillow for the rest of the day. Do not sit up or stand up quickly as you may get dizzy. Talk to your doctor before you exercise. Do not drive for 24 hours. No heavy lifting for 48 hours. Medicines: Take your regular medicines. If any of your regular medicines were stopped for this procedure, start taking them again tomorrow. If you take pain medication, do not drive, use heavy machinery or drink alcohol. Call your doctor or 911 if you have: Nausea or vomiting Fever greater than 101 degrees Trouble breathing Bleeding or drainage from the puncture site Pain (headache) not relieved by rest, acetaminophen or ibuprofen New pain in your neck and back Tingling or numbness below your waist that is new or worse Oligoclonal Banding: ___ Your physician ordered a blood test to be drawn within 7 days of this procedure. If you have not had this drawn already, please go to the lab within 7 days to have your blood drawn. No fasting isnecessary Please contact your physician with question or concerns about this lab order Contact numbers: The neuroradiology nurse practitioner is available for questions during business hours at [phone] If you have an urgent question after normal business hours, call the on-call president college or university at [phone], they can help contact your Neuroradiology doctor if needed. For all medical emergencies, call 911 or go immediately to the closest emergency room. Last Updated 09/02/2022 documented in this encounter Medications at Time [...] times daily. UNABLE TO FIND as needed. Tucks sertraline (Zoloft) 50 mg Tablet Take 50 [...] 2:00 PM EST Office Visit Hematology/Oncology at [address] [phone] Mars Conley MD [facility] DR [place] [address] Cailin Marrero APRN [address] [place] [address] [place] [address] 09/07/2024 9:00 AM EST Office [place] [phone] Raven Alvarado MD [facility] [place] [address] 10/04/2024 1:15 PM EST Office [place] [phone] Feliciano Shay, [facility] [place] [address] documented as of this encounter Procedures Procedure Name Priority Date/Time Associated Diagnosis Comments [facility] Routine 05/11/2024 1 :52 PM EDT CYTOLOGY NON-STAIN APPLICATOR Routine 05/11/2024 1:51 PM EDT Small cell carcinoma of lung Ataxia XR FLUORO GUIDED LUMBAR PUNCTURE Routine 05/10/2024 1:50 PM EDT Small cell carcinoma of lung Ataxia CSF DESCRIPTION Routine 05/10/2024 1:40 PM EDT Small cell carcinoma of lung Ataxia CSF CELL COUNT Routine 05/10/2024 1:40 PM EDT Small cell carcinoma of lung Ataxia CSF CULTURE Routine 05/10/2024 1:40 PM EDT Small cell carcinoma of lung Ataxia PROTEIN LEVEL CSF Routine 05/10/2024 1:4 0 PM EDT Small cell carcinoma of lung Ataxia GLUCOSE LEVEL CSF Routine 05/10/2024 1:4 0 PM EDT Small cell carcinoma of lung Ataxia documented in this encounter Results * [facility] Test-Benjamin (05/11/2024 1:52 PM EDT) [facility] Result (May) SEE COMMENTS 05/21/2024 9:15 AM EDT REF LAB [place] Comment: Test ? Result ? Flag ??Unit ?RefValue Movement, Autoimm/Paraneo, CSF ??Movement Disorder Interp, CSF ?SEE COMMENTS ?No informative autoantibodies were detected in this ?evaluation. However, a negative result does not exclude an ?autoimmune movement disorder. Sensitivity is enhanced by ?testing both serum and CSF. ??IFA Notes ?None. ?AMPA-R Ab CBA, CSF ? Negative ? Negative ? ADDITIONAL INFORMATION ?This test was developed and its performance characteristics ?determined by [facility] in a manner consistent with CLIA ?requirements. This test has not been cleared or approved by ?the U.S. Food and Drug Administration. ??Amphiphysin Ab, CSF ?Negative ? Negative ? ADDITIONAL INFORMATION ?This test was developed and its performance characteristics ?determined by [facility] in a manner consistent with CLIA ?requirements. This test has not been cleared or approved by ?the U.S. Food and Drug Administration. ??AGNA-1, CSF ?Negative ? Negative ? ADDITIONAL INFORMATION ?This test was developed and its performance characteristics ?determined by [facility] in a manner consistent with CLIA ?requirements. This test has not been cleared or approved by ?the U.S. Food and Drug Administration. ??JENNY-1, CSF ?Negative ? Negative ? ADDITIONAL INFORMATION ?This test was developed and its performance characteristics ?determined by [facility] in a manner consistent with CLIA ?requirements. This test has not been cleared or approved by ?the U.S. Food and Drug Administration. ??JENNY-2, CSF ?Negative ? Negative ? ADDITIONAL INFORMATION ?This test was developed and its performance characteristics ?determined by [facility] in a manner consistent with CLIA ?requirements. This test has not been cleared or approved by ?the U.S. Food and Drug Administration. ??JENNY-3, CSF ?Negative ? Negative ? ADDITIONAL INFORMATION ?This test was developed and its performance characteristics ?determined by [facility] in a manner consistent with CLIA ?requirements. This test has not been cleared or approved by ?the U.S. Food and Drug Administration. ??AP3B2 IFA, CSF ? Negative ? Negative ? ADDITIONAL INFORMATION ?This test was developed and its performance characteristics ?determined by [facility] in a manner consistent with CLIA ?requirements. This test has not been cleared or approved by ?the U.S. Food and Drug Administration. ??CASPR2-IgG CBA, CSF ?Negative ? Negative ? ADDITIONAL INFORMATION ?This test was developed and its performance characteristics ?determined by [facility] in a manner consistent with CLIA ?requirements. This test has not been cleared or approved by ?the U.S. Food and Drug Administration. ??CRMP-5-IgG Western Blot, CSF ? Negative ? Negative ? ADDITIONAL INFORMATION ?This test was developed and its performance characteristics ?determined by [facility] in a manner consistent with CLIA ?requirements. This test has not been cleared or approved by ?the U.S. Food and Drug Administration. ??DPPX Ab CBA, CSF ? Negative ? Negative ? ADDITIONAL INFORMATION ?This test was developed and its performance characteristics ?determined by [facility] in a manner consistent with CLIA ?requirements. This test has not been cleared or approved by ?the U.S. Food and Drug Administration. ??DAPHNE-B-R Ab CBA, CSF ? Negative ? Negative ? ADDITIONAL INFORMATION ?This test was developed and its performance characteristics ?determined by [facility] in a manner consistent with CLIA ?requirements. This test has not been cleared or approved by ?the U.S. Food and Drug Administration. ??GAD65 Ab Assay, CSF ?0.00 ? nmol/L ??<= 0.02 ? ADDITIONAL INFORMATION ?This test was developed and its performance characteristics ?determined by [facility] in a manner consistent with CLIA ?requirements. This test has not been cleared or approved by ?the U.S. Food and Drug Administration. ??GFAP IFA, CSF ?Negative ? Negative ? ADDITIONAL INFORMATION ?This test was developed and its performance characteristics ?determined by [facility] in a manner consistent with CLIA ?requirements. This test has not been cleared or approved by ?the U.S. Food and Drug Administration. ??GRAF1 IFA, CSF ? Negative ? Negative ? ADDITIONAL INFORMATION ?This test was developed and its performance characteristics ?determined by [facility] in a manner consistent with CLIA ?requirements. This test has not been cleared or approved by ?the U.S. Food and Drug Administration. ??IgLON5 CBA, CSF ?Negative ? Negative ? ADDITIONAL INFORMATION ?This test was developed and its performance characteristics ?determined by [facility] in a manner consistent with CLIA ?requirements. This test has not been cleared or approved by ?the U.S. Food and Drug Administration. ??ITPR1 IFA, CSF ? Negative ? Negative ? ADDITIONAL INFORMATION ?This test was developed and its performance characteristics ?determined by [facility] in a manner consistent with CLIA ?requirements. This test has not been cleared or approved by ?the U.S. Food and Drug Administration. ??KLHL11 Ab CBA, CSF ? Negative ? Negative ? ADDITIONAL INFORMATION ?This test was developed and its performance characteristics ?determined by [facility] in a manner consistent with CLIA ?requirements. This test has not been cleared or approved by ?the U.S. Food and Drug Administration. ??LGI1-IgG CBA, CSF ?Negative ? Negative ? ADDITIONAL INFORMATION ?This test was developed and its performance characteristics ?determined by [facility] in a manner consistent with CLIA ?requirements. This test has not been cleared or approved by ?the U.S. Food and Drug Administration. ??mGluR1 Ab IFA, CSF ? Negative ? Negative ? ADDITIONAL INFORMATION ?This test was developed and its performance characteristics ?determined by [facility] in a manner consistent with CLIA ?requirements. This test has not been cleared or approved by ?the U.S. Food and Drug Administration. ??Neurochondrin IFA, CSF ? Negative ? Negative ? ADDITIONAL INFORMATION ?This test was developed and its performance characteristics ?determined by [facility] in a manner consistent with CLIA ?requirements. This test has not been cleared or approved by ?the U.S. Food and Drug Administration. ??NIF IFA, CSF ? Negative ? Negative ? ADDITIONAL INFORMATION ?This test was developed and its performance characteristics ?determined by [facility] in a manner consistent with CLIA ?requirements. This test has not been cleared or approved by ?the U.S. Food and Drug Administration. ??NMDA-R Ab CBA, CSF ? Negative ? Negative ? ADDITIONAL INFORMATION ?This test was developed and its performance characteristics ?determined by [facility] in a manner consistent with CLIA ?requirements. This test has not been cleared or approved by ?the U.S. Food and Drug Administration. ??BOBCAT OPERATOR-Tr, CSF ?Negative ? Negative ? ADDITIONAL INFORMATION ?This test was developed and its performance characteristics ?determined by [facility] in a manner consistent with CLIA ?requirements. This test has not been cleared or approved by ?the U.S. Food and Drug Administration. ??BOBCAT OPERATOR-1, CSF ? Negative ? Negative ? ADDITIONAL INFORMATION ?This test was developed and its performance characteristics ?determined by [facility] in a manner consistent with CLIA ?requirements. This test has not been cleared or approved by ?the U.S. Food and Drug Administration. ??BOBCAT OPERATOR-2, CSF ? Negative ? Negative ? ADDITIONAL INFORMATION ?This test was developed and its performance characteristics ?determined by [facility] in a manner consistent with CLIA ?requirements. This test has not been cleared or approved by ?the U.S. Food and Drug Administration. ??PDE10A Ab IFA, CSF ? Negative ? Negative ? ADDITIONAL INFORMATION ?This test was developed and its performance characteristics ?determined by [facility] in a manner consistent with CLIA ?requirements. This test has not been cleared or approved by ?the U.S. Food and Drug Administration. ??Septin-5 IFA, CSF ?Negative ? Negative ? ADDITIONAL INFORMATION ?This test was developed and its performance characteristics ?determined by [facility] in a manner consistent with CLIA ?requirements. This test has not been cleared or approved by ?the U.S. Food and Drug Administration. ??Septin-7 IFA, CSF ?Negative ? Negative ? ADDITIONAL INFORMATION ?This test was developed and its performance characteristics ?determined by [facility] in a manner consistent with CLIA ?requirements. This test has not been cleared or approved by ?the U.S. Food and Drug Administration. ??TRIM46 Ab IFA, CSF ? Negative ? Negative ? ADDITIONAL INFORMATION ?This test was developed and its performance characteristics ?determined by [facility] in a manner consistent with CLIA ?requirements. This test has not been cleared or approved by ?the U.S. Food and Drug Administration. ?Test Performed by: ?[facility] ?[address] [place] [address] ?Director Of Graduate Medical Education: Chato Goetz Ph.D.; CLIA# [id number] Cerebrospinal Fluid CEREBROSPINAL FLUID SPECIMEN / Unknown Non Blood Collection / Unknown 05/11/2024 1:52 PM EDT 05/11/2024 1:55 PM EDT Mars Conley MD LAB SEND OUT ORDERAB LES REF LAB [facility] [address] [place] [address], [facility] * Cytology Non-STAIN APPLICATOR (05/11/2024 1:51 PM EDT) Case Report Medical Cytology Report ? Case: [id number] ? Authorizing Provider: ??Mars Conley MD ?Collected: ? 05/11/2024 1351 ? Ordering Location: ? Hematology/[facility] ??Received: ?05/11/2024 1352 ? [facility] ? Pathologist: ? Ruperto Rodriguez MD ? Specimen: ?Cerebrospinal Fluid, Lumbar Puncture ? 05/13/2024 2:05 PM EDT [facility] Specimen Source Cerebrospinal Fluid, Lumbar Puncture 05/13/2024 2:05 PM EDT [facility] Final Diagnosis Negative for malignancy 05/13/2024 2:05 PM EDT [facility] Diagnosis Discussion Predominantly red blood cells. 05/13/2024 2:05 PM EDT [facility] Specimen Adequacy Satisfactory for evaluation. 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 Concern for paraneoplastic syndrome vs leptomeningeal disease. 05/13/2024 2:05 PM EDT [facility] Gross Description Received fresh, approximately 2 mL total volume of clear, colorless fluid. Total preparation: Cytospin slide(s): 2. 05/13/2024 2:05 PM EDT [facility] Result Note Routine 05/13/2024 2:05 PM EDT [facility] Cerebrospinal Fluid CEREBROSPINAL FLUID SPECIMEN / Unknown Non Blood Collection / Unknown 05/11/2024 1:51 PM EDT 05/11/2024 1:52 PM EDT Mars Conley MD PATHOLOGY/CYTOLOGY O RDERABLES [facility] [place] [address] * XR Fluoro Guided Lumbar Puncture (05/10/2024 1:50 PM EDT) WORKSTATION ID [id number] RAD Anatomical Region Laterality Modality L-spine N/A Radio Fluoroscop y Impressions 05/11/2024 10:09 AM EDT Successful fluoroscopic-guided lumbar puncture without immediate complication. Resident/Fellow: Philip Reynoso MD Attending: Salty Langford MD I, the attending Dr. Salyt Langford, was present for the critical portions [...] questions please contact the health home care scheduler that requested your imaging first. ? Electronically signed by: Salty Langford [facility] ([phone]), at 05/11/2024 10:09 AM Narrative 05/11/2024 10:09 AM EDT EXAMINATION: XR [...] fashion. A preprocedural timeout was performed per [facility] protocol. The patient's skin was anesthetized using [...] surgical fashion. Apreprocedural timeout was performed per [facility] protocol. The patient's skin wasanesthetized using less [...] have questions please contactthe health home care scheduler that requested your imaging first. Electronically signed by: Salty Langford [facility]([phone]), at 05/11/2024 10:09 AM Mars Conley MD IMG FLUORO ORDERABLE S * CSF Description (05/10/2024 1:40 PM EDT) Tube Num CSF 2 05/10/2024 3:20 PM EDT [facility] Tube Number CSF 1 05/10/2024 3:20 PM EDT [facility] Color, CSF Colorless 05/10/2024 3:20 PM EDT [facility] Appearance, CSF Clear 05/10/2024 3:20 PM EDT [facility] Total Vol, CSF 3.2 mL 05/10/2024 3:20 PM EDT [facility] Color, CSF 2 Colorless 05/10/2024 3:20 PM EDT [facility] Appearance, CSF 2 Clear 05/10/2024 3:20 PM EDT [facility] Total Vol, CSF 2 3.1 mL 05/10/2024 3:20 PM EDT [facility] Tube Num CSF 3 05/10/2024 3:20 PM EDT [facility] Color, CSF 3 Colorless 05/10/2024 3:20 PM EDT [facility] Appearance, CSF 3 Clear 05/10/2024 3:20 PM EDT [facility] Total Vol, CSF 3 3.0 mL 05/10/2024 3:20 PM EDT [facility] Tube Num CSF 4 05/10/2024 3:20 PM EDT [facility] Color, CSF 4 Colorless 05/10/2024 3:20 PM EDT [facility] Appearance, CSF 4 Clear 05/10/2024 3:20 PM EDT [facility] Total Vol, CSF 4 3.0 mL 05/10/2024 3:20 PM EDT [facility] Cerebrospinal Fluid CEREBROSPINAL FLUID SPECIMEN / Unknown Non Blood Collection / Unknown 05/10/2024 1:40 PM EDT 05/10/2024 1:52 PM EDT Mars Conley MD BODY FLUIDS AND STOO LS ORDERABLES Performing Organization Address City/[facility]/ZIP Co de Phone Number [facility] [place] [address] * CSF Culture (05/10/2024 1:40 PM EDT) Pathologist [facility] N[facility] Culture No growth 05/13/2024 9:46 AM EDT [facility] Gram Stain Cytocentrifuge Gram Stain performed 05/13/2024 9:46 AM EDT [facility] Gram Stain Neutrophils seen 05/13/20 9:46 AM EDT [facility] Gram Stain No microorganisms seen 05/13/2024 9:46 AM EDT [facility] Cerebrospinal Fluid CEREBROSPINAL FLUID SPECIMEN / Unknown Non Blood Collection / Unknown 05/10/2024 1:40 PM EDT 05/10/2024 1:52 PM EDT Mars Conley MD MICROBIOLOGY - GENER AL ORDERABLES [facility] [place] [address] * CSF Cell Count (05/10/2024 1:40 PM EDT) AUTO NUC CSF CT 4 0 - 5 /mcl 3:20 PM EDT [facility] Comment:All body fluid resul ts should always be interpreted in light of the total clinical presentation of the patient, including clinical history, data from additional tests and other appropriate information. AUTO RBC CSF CT 36 /mcl 3:20 PM EDT [facility] Diff Performed CSF? No 05/10/2024 3:20 PM EDT [facility] Cerebrospinal Fluid CEREBROSPINAL FLUID SPECIMEN / Unknown Non Blood Collection / Unknown 05/10/2024 1:40 PM EDT 05/10/2024 1:52 PM EDT Mars Conley MD BODY FLUIDS AND STOO LS ORDERABLES Performing Organization Address [facility] Co de Phone Number [facility] [place] [address] * (ABNORMAL) Protein Level CSF (05/10/2024 1:40 PM EDT) Protein, CSF 61(H) 15 - 45 mg/dL 05/10/2024 3:18 PM EDT [facility] Xanthochromat ic, CSF Negative Negative 05/10/2024 3:18 PM EDT [facility] Cerebrospinal Fluid CEREBROSPINAL FLUID SPECIMEN / Unknown Non Blood Collection / Unknown 05/10/2024 1:40 PM EDT 05/10/2024 1:52 PM EDT Mars Conley MD BODY FLUIDS AND STOO LS ORDERABLES Performing Organization Address City/[facility]/ZIP Co de Phone Number [facility] [place] [address] * Glucose Level CSF (05/10/2024 1:40 PM EDT) Glucose, CSF 72 mg/dL 05/10/2024 3:05 PM EDT [facility] Comment:At equilibrium, CSF glucose concentration is approximately 60-80% of plasma glucose. Cerebrospinal Fluid CEREBROSPINAL FLUID SPECIMEN / Unknown Non Blood Collection / Unknown 05/10/2024 1:40 PM EDT 05/10/2024 1:52 PM EDT Mars Conley MD BODY FLUIDS AND STOO LS ORDERABLES [facility] [place] [address] documented in this encounter Visit Diagnoses Diagnosis Small cell carcinoma of lung Malignant neoplasm of bronchus and lung, unspecified site Ataxia Lack of coordination documented in this encounter Care Teams Rigging Up Man Relationship Specialty Start Date End Date Marco Antonio-Nini Landrum MD [address] [facility] [address] [place] [id number] PCP - General 06/26/10 documented as of this encounter
--- OUTSIDE RECORDS SUMMARY | 2024-08-27 00:46 | XMS_ITS | Encounter Summary ---
Author Organization [facility] Address [facility] [place] [address] Care Team Providers Care Grain Roaster Name Role Phone Nini Machado MD Primary Care Provider Encounter Details Date Type Department Care Team (Late st Contact Info) Description 07/01/2023 Interpretation Only [facility] [address] [place] [phone] Nini Machado MD 79 [facility] 3 [place] [address] Social History Tobacco Use Types [...] a nursing home (including now)? No 06/20/2021 Sex and Gender Information Value Date Recorded Sex Assigned at Not on file Gender Identity Not on file Sexual Orientation Not on file documented as of this encounter Plan of Treatment Upcoming Encounters Date Type Department Care Team (Late st Contact Info) Description 08/30/2024 2:00 PM EST Office Visit Hematology/Oncology at [address] [phone] Mars Conley MD [facility] DR HEMATOLOGY [place] [address] Cailin Marrero APRN [address] [place] [address] DR [place] [address] 09/07/2024 9:00 AM EST Office [place] [phone] Raven Alvarado MD [facility] [place] [address] 10/04/2024 1:15 PM EST [place] [phone] Feliciano Shay, [facility] [place] [address] documented as of this encounter Procedures Procedure Name Priority Date/Time Associated Diagnosis Comments DXA CENTRAL SPINE, HIP, AND/OR WHOLE BODY (GENERIC) Routine 07/01/2023 11:25 AM EST documented in this encounter Results * DXA Central Spine, Hip, and/or Whole Body (Generic) (07/01/2023 11:25 AM EST) PT CLASS RAD ADMITDTTM RAD PT [facility] INFO [id number]^Y [place]^Carol h RAD EXAM DESC XDXAC^BD Bone Density DEXA Axial Skeleton^RIS RAD Anatomical Region Laterality Modality C-spine, Hip N/A [...] who have questions please contact the health md do resident urgent care that requested your imaging first. ? Electronically signed by: Pro Brown MD, [facility] ([phone]), at 07/01/2023 1:09 PM Narrative 07/01/2023 1:09 [...] patients who have questions please contactthe health md do resident urgent care that requested your imaging first. Electronically signed by: Pro Brown MD, [facility]([phone]), at 07/01/2023 1:09 PM Nini Machado MD IMG DEXA ORDERABLES documented in this encounter Visit Diagnoses Not on filedocumented in this encounter Care Teams Grain Roaster Relationship Specialty Start Date End Date Nini Machado MD 79 [facility] 3 [place] [address] PCP - General 06/26/10 documented as of this encounter
--- OUTSIDE RECORDS SUMMARY | 2024-08-27 00:46 | XMS_ITS | Encounter Summary ---
Author Organization [facility] Address [facility] [place] [address] Care Team Providers Care 411 Directory Assistance Operator Name Role Phone Nini Machado MD Primary Care Provider [phone] Encounter Details Date Type Department Care Team (Late st Contact Info) Description 10/13/2023 Ancillary Procedure Radiology Library at [facility] ([place] [phone] Nini Machado MD 79 [facility] 3 [place] [address] Social History Tobacco Use Types [...] health care facility (including now)? No 06/20/2021 Sex and Gender Information Value Date Recorded Sex Assigned at Not on file Gender Identity Not on file Sexual Orientation Not on file documented as of this encounter Plan of Treatment Upcoming Encounters Date Type Department Care Team (Late st Contact Info) Description 08/30/2024 2:00 PM EST Office Visit Hematology/Oncology at [address] [phone] Mars Conley MD [facility] DR HEMATOLOGY [place] [address] Cailin Marrero APRN [address] [place] [address] DR HEMATOLOGY [place] [address] 09/07/2024 9:00 AM EST Office [place] [phone] Raven Alvarado MD [facility] [place] [address] 10/04/2024 1:15 PM EST Office [place] [phone] Feliciano Shay, [facility] [place] [address] documented as of this encounter Procedures Procedure Name Priority Date/Time Associated Diagnosis Comments FILM LIBRARY STORAGE ONLY CT CHEST Routine 10/13/2023 12:00 AM EDT documented in this encounter Results * Film Library- Storage Only CT Chest (10/13/2023 12:00 AM EDT) Narrative LIZBET - 10/14/2023 2:28 AM EDT This exam is auto-finalizing. It's purpose is for storage only. Nini Machado MD IMG FILM LIBRARY ORD ERABLES Performing Organization Address City/State/[facility] Co de Phone Number [place], [place] documented in this encounter Visit Diagnoses Not on filedocumented in this encounter Care Teams 411 Directory Assistance Operator Relationship Specialty Start Date End Date Nini Machdao MD [address] [address] PCP - General 06/26/10 documented as of this encounter
--- OUTSIDE RECORDS SUMMARY | 2024-08-27 00:46 | XMS_ITS | Encounter Summary ---
Author Organization [facility] Address [facility] [place] [address] Care Team Providers Care Fingernail Former Name Role Phone Nini Machado MD Primary Care Provider [phone] Encounter Details Date Type Department Care Team (Latest Contact Info) Description 10/17/2023 Travel Social History Tobacco Use Types Packs/Day [...] in a detention (including now)? No 06/20/2021 Sex and Gender Information Value Date Recorded Sex Assigned at Not on file Gender Identity Not on file Sexual Orientation Not on file documented as of this encounter Plan of Treatment Upcoming Encounters Date Type Department Care Team (Late st Contact Info) Description 08/30/2024 2:00 PM EST Office Visit Hematology/Oncology at [address] [phone] Mars Conley MD [facility] DR HEMATOLOGY [place] [address] Cailin Marrero APRN [address] [place] [address] DR [place] [address] 09/07/2024 9:00 AM EST Office [place] [phone] Raven Alvarado MD [facility] [place] [address] 10/04/2024 1:15 PM EST Office [place] [address] Feliciano Shay, [facility] [place] [address] documented as of this encounter Visit Diagnoses Not on filedocumented in this encounter Care Teams Fingernail Former Relationship Specialty Start Date End Date Nini Machado MD [address] [place] [address] 3 [place] [address] PCP - General 06/26/10 documented as of this encounter
--- OUTSIDE RECORDS SUMMARY | 2024-08-27 00:46 | XMS_ITS | Encounter Summary ---
Author Organization [facility] Address [facility] [place] [address] Care Team Providers Care Film Examiner Name Role Phone Nini Machado MD Primary Care Provider [phone] Encounter Details Date Type Department Care Team (Late st Contact Info) Description 10/16/2023 Interpretation Only [facility] [address] [place] [phone] Popeye Odell MD [address] [place] [address] Social History Tobacco Use Types Packs/Day Years [...] place to sleep or slept in a long term (including now)? No 06/20/2021 Sex and Gender Information Value Date Recorded Sex Assigned at Not on file Gender Identity Not on file Sexual Orientation Not on file documented as of this encounter Plan of Treatment Upcoming Encounters Date Type Department Care Team (Late st Contact Info) Description 08/30/2024 2:00 PM EST Office Visit Hematology/Oncology at [address] [phone] Mars Conley MD [facility] DR HEMATOLOGY [place] [address] Cailin Marrero APRN [address] [place] [address] [place] [address] 09/07/2024 9:00 AM EST Office [place] [phone] Raven Alvarado MD [facility] [place] [address] 10/04/2024 1:15 PM EST Office [place] [phone] Feliciano Shay, [facility] [place] [address] documented as of this encounter Procedures Procedure Name Priority Date/Time Associated Diagnosis Comments CT ABDOMEN AND PELVIS W CONTRAST STAT 10/16/2023 1:33 AM EDT documented in this encounter Results * CT Abdomen & Pelvis w Contrast (10/16/2023 1:33 AM EDT) PT CLASS E RAD ADMITDTTM [id number] RAD PT RAD INFO [id number]^Hanissi an^Popeye RAD EXAM DESC CTAPW^CT Abdomen and Pelvis w/ Contrast^RIS RAD Anatomical Region Laterality Modality Abdomen, Pelvis Computed Tomogra phy 10/16/2023 1:33 AM EDT Impressions 10/16/2023 2:16 AM EDT No acute finding. Thank you for letting us participate in the care of this patient. ??If you are a health care provider and have any questions regarding this report, please contact the number below. ??For patients who have questions please contact the health cattle care worker that requested your imaging first. ? Narrative 10/16/2023 2:16 AM EDT EXAMINATION: CT Abdomen and Pelvis w/ Contrast CLINICAL HISTORY: Abdominal Pain TECHNIQUE: Helical CT of the abdomen and pelvis following the intravenous administration of 125 mL of Omnipaque 350.. COMPARISON: CT abdomen pelvis 07/17/2021 FINDINGS: The liver, spleen, adrenal glands, pancreas, and gallbladder are normal. Kidneys are normal. Bowel is nondilated. Sigmoid diverticula without evidence of diverticulitis. No free fluid or free air. Abdominal aorta is normal in caliber. No lymphadenopathy. Bladder is normal in contour. Uterus and adnexa are unremarkable. Review of bone windows is unremarkable. Procedure Note Jim Conway MD - 10/16/2023 EXAMINATION: CT Abdomen and Pelvis w/ Contrast CLINICAL HISTORY: Abdominal Pain TECHNIQUE: Helical CT of the abdomen and pelvis following theintravenous administration of 125 mL of Omnipaque 350.. COMPARISON: CT abdomen pelvis 07/17/2021 FINDINGS: The liver, spleen, adrenal glands, pancreas, and gallbladderare normal. Kidneys are normal. Bowel is nondilated. Sigmoid diverticula without evidence ofdiverticulitis. No free fluid or free air. Abdominal aorta is normal in caliber. No lymphadenopathy. Bladder isnormal in contour. Uterus and adnexa are unremarkable. Review of bone windows is unremarkable. IMPRESSION No acute finding. Thank you for letting us participate in the care of this patient. If youare a health care provider and have any questions regarding this report,please contact the number below. For patients who have questions please contactthe health cattle care worker that requested your imaging first. Popeye Odell MD IMG CT ORDERABLES documented in this encounter Visit Diagnoses Not on filedocumented in this encounter Care Teams Film Examiner Relationship Specialty Start Date End Date Marco Antonio-Nini Landrum MD [address] [place] [address] PCP - General 06/26/10 documented as of this encounter
--- OUTSIDE RECORDS SUMMARY | 2024-08-27 00:46 | XMS_ITS | Encounter Summary ---
Author Organization [facility] Address [facility] [place] [address] Care Team Providers Care Baseball Glove Shaper Name Role Phone Nini Machado MD Primary Care Provider [phone] Encounter Details Date Type Department Care Team (Late st Contact Info) Description 09/16/2022 2:15 PM EST - 09/16/2022 3:00 PM EST [place] [address] Tonny Hurtado MD [facility] [place] [address] COLONOSCOPY FLEXIBLE, WITH BX (WRVU 3.56) Social History Tobacco Use Types Packs/Day Years Used Date Smoking Tobacco: Former Cigarettes 1 42 0 03/11/1979 - 03/11/2021 Smokeless Tobacco: Never Tobacco Cessation:Counseling Given: Not Answered Comments:vaping several x/day Alcohol Use Standard Drinks/Week Comments Never 0 [...] in a usp (including now)? No 06/20/2021 Sex and Gender Information Value Date Recorded Sex Assigned at Not on file Gender Identity Not on file Sexual Orientation Not on file documented as of this encounter Last Filed Vital Signs Vital Sign Reading Time Taken Comments Blood Pressure 124/55 09/16/2022 2:30 PM EST Pulse 72 09/16/2022 1:22 PM EST Temperature 36.4 ??C (97.5 ??F) 09/16/2022 1:22 PM ES T Respiratory Rate 18 09/16/2022 2:30 PM EST Oxygen Saturation 98% 09/16/2022 2:30 PM EST Inhaled Oxygen Concentration - - Weight 63.5 kg (140 lb) 09/16/2022 1:22 PM EST Height 165.1 cm (5' 5) 09/16/2022 1:22 PM EST Body Mass Index 23.3 09/16/2022 1:22 PM EST documented in this encounter Discharge Instructions * Discharge Instructions* Mariah Carroll RN - 09/16/2022 2:12 PM EST Colonoscopy: What to Expect at Home Your Recovery Your doctor will talk to you about when you will need your next colonoscopy. Your doctor can help you decide how often you need to be checked. This will depend on the results of your test and your risk for colorectal cancer. After the test, you may be bloated or have gas pains. You may need to pass gas. If a biopsy was done or a polyp was removed, you may have streaks of blood in your stool (feces) for a few days. Problems such as heavy rectal bleeding may not occur until several weeks after the test. This isn't common. But it can happen after polyps are removed. This care sheet gives you a general idea about how long it will take for you to recover. But each person recovers at a different pace. Follow the steps below to get better as quickly as possible. How can you care for yourself at home? Activity Rest when you feel tired. You can do your normal activities when it feels okay to do so. Diet Follow your doctor's directions for eating. Unless your doctor has told you not to, drink plenty of fluids. This helps to replace the fluids that were lost during the colon prep. Do not drink alcohol. Medicines Your doctor will tell you if and when you can restart your medicines. He or she will also give you instructions about taking any new medicines. If you take blood thinners, such as warfarin (Coumadin), clopidogrel (Plavix), or aspirin, be sure to talk to your doctor. He or she will tell you if and when to start taking those medicines again. Make sure that you understand exactly what your doctor wants you to do. If polyps were removed or a biopsy was done during the test, your doctor may tell you not to take aspirin or other anti-inflammatory medicines for a few days. These include ibuprofen (Advil, Motrin) and naproxen (Aleve). Other instructions For your safety, do not drive or operate machinery until the medicine wears off and you can think clearly. Your doctor may tell you not to drive or operate machinery until the day after your test. Do not sign legal documents or make major decisions until the medicine wears off and you can think clearly. The anesthesia can make it hard for you to fully understand what you are agreeing to. Additional Information for Sedation Patients For patients who received sedation: You may have received medications before and/or during your procedure which effects your judgement and reaction time. Do not drive, operate machinery, drink alcoholic beverages or make important decisions for 24 hours. Be careful on stairs as you may be unsteady on your feet. You may eat a regular diet as tolerated. Do not smoke if you are alone. IV site: Slight redness or tenderness is normal, you can use a warm compress if you would like. If tenderness and/or redness increase or if foul drainage occurs, please contact your Doctor. Please call [phone] before 8pm Mon-Fri with problems, questions or concerns. If you call after 8pm or on weekends, call the Hospital at [phone] and ask to speak to the Wedding Consultant early interventionist and the cad operator will contact that person for you. When should you call for help? Call 543 anytime you think you may need emergency care. For example, call if: You passed out (lost consciousness). You pass maroon or bloody stools. You have trouble breathing. Call your doctor now or seek immediate medical care if: You have pain that does not get better after you take pain medicine. You are sick to your stomach or cannot drink fluids. You have new or worse belly pain. You have blood in your stools. You have a fever. You cannot pass stools or gas. Watch closely for changes in your health, and be sure to contact your doctor if you have any problems. Where can you learn more? [facility] View your After Visit Summary and more online at [email or web address] If you would like to provide feedback about your hospital experience, please call the Office of Patient and Family Relations at . If you have received this After Visit Summary in error, please immediately return it in person to the department, or notify the [facility] Privacy Office by calling toll free at between the hours of 8AM and 5PM to arrange for our retrieval of the documents at no cost to you. Content Version: 12.2 ?? [phone] [employer]. Care instructions adapted under license by [facility]. If you have questions about a medical condition or this instruction, always ask your healthcare professional. [employer] disclaims any warranty or liability for your use of this information. documented in this encounter Medications at Time [...] Take 10 mg by mouth nightly. 01/29/2021 lidocaine (Xylocaine) 2 % jelly Apply topically as needed. 30 mL 01/03/2022 12/25/2023 documented as of this encounter H&P Notes * Tonny Hurtado MD - 09/16/2022 1:31 PM EST Gastroenterology and Hepatology Pre-Procedure History and Physical Exam Procedure: Colonoscopy: Indication: polyp with HG dysplasia Patient Active Problem List Diagnosis Code ??? Small cell carcinoma of lung C34.90 ??? Allergic rhinitis J30.9 ??? Benign neoplasm of colon, unspecified D12.6 ??? Chronic low back pain M54.50, G89.29 ??? Chronic obstructive pulmonary disease J44.9 ??? External hemorrhoids without complication K64.4 ??? Generalized anxiety disorder F41.1 ??? Hard of hearing H91.90 ??? Hyperlipidemia, mixed E78.2 ??? Leg cramps R25.2 ??? 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 Major depressive disorder, single episode, unspecified F32.9 ??? Venous insufficiency I87.2 EXAM: HEENT: Airway examined, oropharynx clear Mallampati Score: II (soft palate, uvula, fauces visible) LUNGS: Clear to auscultation HEART: Regular rate and rhythm, normal S1, S2 ABDOMEN: Normal bowel sounds, soft, non tender, non distended, A/P Proceed with the planned endoscopic procedure. ASA 2 - Patient with mild systemic disease with no functional limitations Sedation Plan: anesthesia Risks and benefits of the procedure explained to the patient. Consent signed. documented in this encounter Plan of Treatment Upcoming Encounters Date Type Department Care Team (Late st Contact Info) Description 08/30/2024 2:00 PM EST Office Visit Hematology/Oncology at [address] [phone] Mars Conley MD [facility] DR HEMATOLOGY [place] [address] Cailin Marrero APRN [address] [place] [address] DR HEMATOLOGY [place] [address] 09/07/2024 9:00 AM EST Office [place] [phone] Raven Alvarado MD [facility] [place] [address] 10/04/2024 1:15 PM EST [place] [phone] Feliciano Shay DO [facility] [place] [address] documented as of this encounter Procedures Procedure Name Priority Date/Time Associated Diagnosis Comments SPECIMEN TO PATHOLOGY Routine 09/16/2022 2:08 PM EST SPECIMEN TO PATHOLOGY Routine 09/16/2022 2:08 PM EST SURGICAL PATHOLOGY REPORT Routine 09/16/2022 2:00 PM EST Colonoscopy, Biopsy ([id number]) 09/16/2022 1:39 PM EST High grade dysplasia in colonic adenoma COLONOSCOPY Routine 09/16/2022 1:32 PM EST documented in this encounter Results * Specimen to Pathology (09/16/2022 2:08 PM EST) AP Specimen 09/16/2022 2:08 PM EST 09/16/2022 2:08 PM EST Narrative [facility] - 09/16/2022 2:08 PM EST Specimen requisition ordered. ??Separate Pathology report to follow Tonny Hurtado MD PATHOLOGY/CYTOLOGY O BRANDIN Performing Organization Address [facility] [[email or web address]] de Phone Number [place] [phone] * Specimen to Pathology (09/16/2022 2:08 PM EST) AP Specimen 09/16/2022 2:08 PM EST 09/16/2022 2:08 PM EST Narrative [facility] - 09/16/2022 2:08 PM EST Specimen requisition ordered. ??Separate Pathology report to follow Tonny Hurtado MD PATHOLOGY/CYTOLOGY O BRANDIN Performing Organization Address [facility] [place] [address] * Surgical Pathology Report (09/16/2022 2:00 PM EST) Final Diagnosis [id number] ? Location: 4T; EA10; A The signing pathologist has (i) examined the relevant preparation(s) for the specimen(s) and (ii) rendered or confirmed the diagnosis(es). . ?Surgical Pathology DIAGNOSIS A - Scar tissue at ascending colon polypectomy site, excision (Multiple): - ??Hyperplastic polyp. B - Polyp < 5 mm descending colon, excision: - ??Tubular adenoma. CR-PX Electronically signed by: ?Dione PALENCIA, Alex Verified: ??09/24/2022 16:33 ??Pathologist Performed at: ??-[facility] Dept. of Pathology, [place] [address] Diesel Trailer Mechanic: Umu Bassett MD, FCAP, ??CLIA Certificate: [id number] SPECIMEN(S) SUBMITTED A - Scar tissue at ascending colon polypectomy site, excision (Multiple) B - Polyp < 5 mm descending colon, excision (1) CLINICAL INFORMATION Colonoscopy follow-up polyp with HGD. SPECIMEN PROCESSING A - Labeled/Fixativ e: Scar tissue at ascending colon polypectomy site, formalin. Quantity/Size: Three, ranging from 0.3-0.7 cm. Tissue Description: Soft, loza-pink tissues. Sections/Proces sing: Submitted en toto ??in 1 cassette labeled A1. B - Labeled/Fixativ e: Polyp less than 5 mm descending colon, formalin. Quantity/Size: Single, 0.7 cm. Tissue Description: Loza-pink polypoid tissue. Sections/Proces sing: Inked, bisected and entirely submitted in 1 cassette labeled B1. ??jnr 09/24/2022 4:[address] [facility] GI Biopsy 09/16/2022 2:00 PM EST 09/16/2022 2:00 PM EST GI Biopsy 09/16/2022 2:00 PM EST 09/16/2022 2:00 PM EST Tonny Hurtado MD PATHOLOGY/CYTOLOGY O RDERAROBINSON [facility] [place] [address] [facility] [place] [id number] * COLONOSCOPY (09/16/2022 1:32 PM EST) COLONOSCOPY [facility] Endoscopy Procedure Date: 09/16/2022 1:32 PM ? Patient Name: Stefanie Pina ? Date of : 1955 ? Age: 66 ? Order #: [id number] ? Instrument Name: [id number] ? Procedure: ? Colonoscopy Indications: ? 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 f/u Providers: ? Tonny Hurtado MD, Lucas Encinas ? MERLINE Sandoval, Sandra Navarrete MD: ?Nini Machado MD Medicines: ? See the [...] preparation was evaluated ? using the BBPS (Gifford Bowel ? Preparation Scale) with scores of: [...] Nini Machado MD GENERAL SURGICAL ORD ERABLES [employer]ATION documented in this encounter Visit Diagnoses Diagnosis High grade dysplasia in colonic adenoma Benign neoplasm of colon documented in this encounter Administered Medications Inactive Administered Medications - up to 3 most recent administrations Medication Order MAR Action Action Date Dose Rate Site lactated ringers infusion 100 mL/hr, Intravenous, CONTINUOUS, Starting on Fri09/16/22 at 1330, Until Fri09/16/22 at 1422, Endoscopy (Day of Procedure) New Bag 09/16/2022 1:39 PM EST 100 mL/hr New Bag 09/16/2022 1:30 PM EST 100 mL/hr 100 mL/hr documented in this encounter Active and Recently Administered Medications Times are shown in EST. Continuous Medication Order 09/14/2022 09/15/2022 09/16/2022 lactated ringers infusion (CANCELED) 100 mL/hr, Intravenous, CONTINUOUS, Starting on Fri09/16/22 at 1330, Until Fri09/16/22 at 1422, Endoscopy (Day of Procedure) 1330 (New Bag - Prov ider: Naty Sigala RN)1339 (New Bag - Provider: Curt Hoffman CRNA) documented in this encounter Care Teams Baseball Glove Shaper Relationship Specialty Start Date End Date Marco Antonio-Nini Landrum MD [address] [id number] PCP - General 06/26/10 documented as of this encounter
--- OUTSIDE RECORDS SUMMARY | 2024-08-27 00:46 | XMS_ITS | Encounter Summary ---
Author Organization [facility] Address [facility] [place] [address] Care Team Providers Care Front End Drupal Developer Name Role Phone Nini Machado MD Primary Care Provider [phone] Encounter Details Date Type Department Care Team (Latest Contact Info) Description 10/27/2023 Travel Social History Tobacco Use Types Packs/Day [...] in a intermediate (including now)? No 06/20/2021 Sex and Gender Information Value Date Recorded Sex Assigned at Not on file Gender Identity Not on file Sexual Orientation Not on file documented as of this encounter Plan of Treatment Upcoming Encounters Date Type Department Care Team (Late st Contact Info) Description 08/30/2024 2:00 PM EST Office Visit Hematology/Oncology at [address] [phone] Mars Conley MD [facility] DR [place] [address] Cailin Marrero APRN [address] [place] [address] DR [place]Y [place] [address] 09/07/2024 9:00 AM EST Office [place] [address] Raven Alvarado MD [facility] [place] [address] 10/04/2024 1:15 PM EST Office [place] [address] Feliciano Shay, [facility] [place] [address] documented as of this encounter Visit Diagnoses Not on filedocumented in this encounter Care Teams Front End Drupal Developer Relationship Specialty Start Date End Date Nini Machado MD [address] [place] [address] 3 [place] [address] PCP - General 06/26/10 documented as of this encounter
--- OUTSIDE RECORDS SUMMARY | 2024-08-27 00:46 | XMS_ITS | Encounter Summary ---
Author Organization [facility] Address One [facility] [place] [address] Care Team Providers Care Component Lab Tech Name Role Phone Nini Machado MD Primary Care Provider [phone] Encounter Details Date Type Department Care Team (Latest Contact Info) Description 04/28/2023 Travel Social History Tobacco Use Types Packs/Day [...] in a prison (including now)? No 06/20/2021 Sex and Gender Information Value Date Recorded Sex Assigned at Not on file Gender Identity Not on file Sexual Orientation Not on file documented as of this encounter Plan of Treatment Upcoming Encounters Date Type Department Care Team (Late st Contact Info) Description 08/30/2024 2:00 PM EST Office Visit Hematology/Oncology at [address] [phone] Mars Conley MD [facility] DR HEMATOLOGY [place] [address] Cailin Marrero APRN [address] [place] [address] DR [place] [address] 09/07/2024 9:00 AM EST Office [place] [address] Raven Alvarado MD [facility] [place] [address] 10/04/2024 1:15 PM EST Office [place] [address] Feliciano Shay, [facility] [place] [address] documented as of this encounter Visit Diagnoses Not on filedocumented in this encounter Care Teams Component Lab Tech Relationship Specialty Start Date End Date Nini Machado MD [address] [place] [address] 3 [place] [address] PCP - General 06/26/10 documented as of this encounter
--- OUTSIDE RECORDS SUMMARY | 2024-08-27 00:46 | XMS_ITS | Encounter Summary ---
Author Organization [facility] Address [facility] [place] [address] Care Team Providers Care Torch Straightener Name Role Phone Nini Machado MD Primary Care Provider [phone] Encounter Details Date Type Department Care Team (Late st Contact Info) Description 10/14/2022 8:35 PM EDT Ancillary Procedure Radiology Library at [facility] [place] [address] Senthil Muller MD [facility] [place] [address] Social History Tobacco Use Types Packs/Day Years [...] a skilled nursing (including now)? No 06/20/2021 Sex and Gender Information Value Date Recorded Sex Assigned at Not on file Gender Identity Not on file Sexual Orientation Not on file documented as of this encounter Plan of Treatment Upcoming Encounters Date Type Department Care Team (Late st Contact Info) Description 08/30/2024 2:00 PM EST Office Visit Hematology/Oncology at [address] [phone] Mars Conley MD [facility] DR HEMATOLOGY [place] [address] Cailin Marrero APRN [address] [place] [address] DR HEMATOLOGY [place] [address] 09/07/2024 9:00 AM EST Office [place] [phone] Raven Alvarado MD [facility] [place] [address] 10/04/2024 1:15 PM EST Office [place] [phone] Feliciano Shay, [facility] [place] [address] documented as of this encounter Procedures Procedure Name Priority Date/Time Associated Diagnosis Comments FILM LIBRARY STORAGE ONLY CT CHEST Routine 10/14/2022 8:26 PM EDT documented in this encounter Results * Film Library- Storage Only CT Chest (10/14/2022 8:26 PM EDT) Narrative [facility] - 10/14/2022 8:26 PM EDT This exam is auto-finalizing. It's purpose is for storage only. Senthil Muller MD IMG FILM LIBRARY ORD ERABLES [place], [place] documented in this encounter Visit Diagnoses Not on filedocumented in this encounter Care Teams Torch Straightener Relationship Specialty Start Date End Date Marco Antonio-Nini Landrum MD [address] [address] PCP - General 06/26/10 documented as of this encounter
--- OUTSIDE RECORDS SUMMARY | 2024-08-27 00:46 | XMS_ITS | Encounter Summary ---
Author Organization [facility] Address [facility] [place] [address] Care Team Providers Care Director Of Strategic Communications Name Role Phone Nini Machado MD Primary Care Provider [phone] Encounter Details Date Type Department Care Team (Late st Contact Info) Description 10/13/2022 Interpretation Only [address] [phone] Mayda Chen MD [address] [place] [address] Social History Tobacco Use Types Packs/Day Years [...] a care home (including now)? No 06/20/2021 Sex and Gender Information Value Date Recorded Sex Assigned at Not on file Gender Identity Not on file Sexual Orientation Not on file documented as of this encounter Plan of Treatment Upcoming Encounters Date Type Department Care Team (Late st Contact Info) Description 08/30/2024 2:00 PM EST Office Visit Hematology/Oncology at [address] [phone] Mars Conley MD [facility] [place] [address] Cailin Marrero APRN [address] [place] [address] DR [place]EM[place]Y [place] [address] 09/07/2024 9:00 AM EST Office Visit [place] [phone] Raven Alvarado MD [facility] [place] [address] 10/04/2024 1:15 PM EST Office [place] [phone] Feliciano Shay, [facility] [place] [address] documented as of this encounter Procedures Procedure Name Priority Date/Time Associated Diagnosis Comments CT HEAD WO CONTRAST (GENERIC) STAT 10/13/2022 12:13 PM EDT documented in this encounter Results * CT Head wo Contrast (Generic) (10/13/2022 12:13 PM EDT) PT CLASS E RAD ADMITDTTM RAD PT RAD INFO [id number]^C HANDER^SUNEE R RAD EXAM DESC CTHEAD^CT HEAD WO CNTRST^RIS RAD Anatomical Region Laterality Modality Head Computed Tomogra phy Impressions 10/13/2022 12:20 PM EDT No acute intracranial abnormality. Thank you for letting us participate in the care of this patient. ??If you are a health care provider and have any questions regarding this report, please contact the number below. ??For patients who have questions please contact the health plant health care technician that requested your imaging first. ? Narrative 10/13/2022 12:20 PM EDT EXAMINATION: CT HEAD WO CNTRST CLINICAL HISTORY: dizziness TECHNIQUE: CT head performed without intravenous contrast administration. COMPARISON: CT head 03/06/2018 and MRI brain 07/11/2022 FINDINGS: No intracranial hemorrhage, mass, mass effect, hydrocephalus, midline shift, or large acute infarction. The subarachnoid spaces are mildly prominent as is the ventricular system related to mild volume loss for age. Mild white matter hypodensity is nonspecific but most consistent with mild chronic small vessel disease. No significant osseous abnormality. The visualized portions of the paranasal sinuses except for a small nonobstructing mucus retention cyst in the lateral aspect of the right maxillary sinus. The mastoid air cells are clear. Procedure Note Pb Lazo MD - 10/13/2022 EXAMINATION: CT HEAD WO CNTRST CLINICAL HISTORY: dizziness TECHNIQUE: CT head performed without intravenous contrast administration. COMPARISON: CT head 03/06/2018 and MRI brain 07/11/2022 FINDINGS: No intracranial hemorrhage, mass, mass effect, hydrocephalus, midlineshift, or large acute infarction. The subarachnoid spaces are mildly prominent as isthe ventricular system related to mild volume loss for age. Mild whitematter hypodensity is nonspecific but most consistent with mild chronic smallvessel disease. No significant osseous abnormality. The visualized portions ofthe paranasal sinuses except for a small nonobstructing mucus retention cystin the lateral aspect of the right maxillary sinus. The mastoid air cells areclear. IMPRESSION No acute intracranial abnormality. Thank you for letting us participate in the care of this patient. If youare a health care provider and have any questions regarding this report,please contact the number below. For patients who have questions please contactthe health plant health care technician that requested your imaging first. Mayda Chen MD IMG CT ORDERABLES documented in this encounter Visit Diagnoses Not on filedocumented in this encounter Care Teams Director Of Strategic Communications Relationship Specialty Start Date End Date Marco Antonio-Nini Landrum MD [address] [place] [address] PCP - General 06/26/10 documented as of this encounter
--- OUTSIDE RECORDS SUMMARY | 2024-08-27 00:46 | XMS_ITS | Encounter Summary ---
Author Organization [facility] Address [facility] [place] [address] Care Team Providers Care Computer Systems Administrator Name Role Phone Nini Machado MD Primary Care Provider [phone] Encounter Details Date Type Department Care Team (Late st Contact Info) Description 02/07/2023 Interpretation Only [facility] [address] [place] [phone] Nini Machado MD [address] [facility] 3 [place] [address] Social History Tobacco Use Types [...] in a retirement (including now)? No 06/20/2021 Sex and Gender Information Value Date Recorded Sex Assigned at Not on file Gender Identity Not on file Sexual Orientation Not on file documented as of this encounter Plan of Treatment Upcoming Encounters Date Type Department Care Team (Late st Contact Info) Description 08/30/2024 2:00 PM EST Office Visit Hematology/Oncology at [address] [phone] Mars Conley MD [facility] DR [place] [address] Cailin Marrero APRN [address] [place] [address] DR HEMATOLOGY [place] [address] 09/07/2024 9:00 AM EST Office [place] [phone] Raven Alvarado MD [facility] [place] [address] 10/04/2024 1:15 PM EST Office [place] [phone] Feliciano Shay, [facility] [place] [address] documented as of this encounter Procedures Procedure Name Priority Date/Time Associated Diagnosis Comments CT HEAD WO CONTRAST (GENERIC) Routine 02/07/2023 2:09 PM EDT documented in this encounter Results * CT Head wo Contrast (Generic) (02/07/2023 2:09 PM EDT) PT CLASS O RAD ADMITDTTM RAD PT RAD INFO [id number]^Y ZEN^GAYE H RAD EXAM DESC CTHEAD^CT HEAD WO CNTRST^RIS RAD Anatomical Region Laterality Modality Head Computed Tomogra phy Impressions 02/07/2023 4:22 PM EDT No acute intracranial pathology. No interval change. Thank you for letting us participate in the care of this patient. ??If you are a health care provider and have any questions regarding this report, please contact the number below. ??For patients who have questions please contact the health associate director career services that requested your imaging first. ? Electronically signed by: Antoni Ramirez MD, [facility] ([phone]), at 02/07/2023 4:22 PM Narrative 02/07/2023 4:22 PM EDT EXAMINATION: CT HEAD WO CNTRST CLINICAL HISTORY: minor head trauma from fall 3 wks ago. headache and ataxia since then. 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 COMPARISON: October 13, 2022 FINDINGS: No intracranial hemorrhage, mass, mass effect, extra-axial fluid collection or ventriculomegaly. Persistent subcortical white matter hypoattenuation consistent with small vessel ischemic change. Spear-white matter differentiation is preserved. The calvarium is intact. Procedure Note Antoni Ramirez MD - 02/07/2023 EXAMINATION: CT HEAD WO CNTRST CLINICAL HISTORY: minor head trauma from fall 3 wks ago. headache andataxia since then. also has a hx of small cell lung cancer with prophylacticbrain XRT 2021 TECHNIQUE: CT head performed without intravenous contrast administration. COMPARISON: October 13, 2022 FINDINGS: No intracranial hemorrhage, mass, mass effect, extra-axial fluidcollection or ventriculomegaly. Persistent subcortical white matter hypoattenuationconsistent with small vessel ischemic change. Spear-white matter differentiation is preserved. The calvarium is intact. IMPRESSION No acute intracranial pathology. No interval change. Thank you for letting us participate in the care of this patient. If youare a health care provider and have any questions regarding this report,please contact the number below. For patients who have questions please contactthe health associate director career services that requested your imaging first. Electronically signed by: Antoni Ramirez MD, [facility]([phone]), at 02/07/2023 4:22 PM Nini Machado MD IMG CT ORDERABLES documented in this encounter Visit Diagnoses Not on filedocumented in this encounter Care Teams Computer Systems Administrator Relationship Specialty Start Date End Date Nini Machado MD [address] [place] [address] PCP - General 06/26/10 documented as of this encounter
--- OUTSIDE RECORDS SUMMARY | 2024-08-27 00:46 | XMS_ITS | Encounter Summary ---
Author Organization [facility] Address [facility] [place] [address] Care Team Providers Care Direct Service Worker Name Role Phone Nini Machado MD Primary Care Provider Encounter Details Date Type Department Care Team (Late st Contact Info) Description 04/28/2023 1:00 PM EDT Office Visit Hematology/Oncology at [address] [phone] Mars Conley MD [facility] [place] [address] Cailin Marrero [address] HEMATOLOGY AND ONCOLOGY [place], [place] [id number] Small cell carcinoma of lung Social History Tobacco Use Types [...] Sign Reading Time Taken Comments Blood Pressure 122/56 04/28/2023 12:59 PM EDT Pulse 74 04/28/2023 12:59 PM EDT Temperature 36.2 ??C (97.1 ??F) 04/28/2023 12:59 PM E DT Respiratory Rate 18 04/28/2023 12:59 PM EDT Oxygen Saturation 93% 04/28/2023 12:59 PM EDT Inhaled Oxygen Concentration - - Weight 67.9 kg (149 lb 9.6 oz) 04/28/2023 12:59 PM EDT Height 165.1 cm (5' 5) 04/28/2023 12:59 PM EDT Body Mass Index 24.89 04/28/2023 12:59 PM EDT documented in this encounter Progress Notes * Cailin Marrero APRN - 04/28/2023 1:00 PM EDT Images from the original note were not included. Hematology & Medical Oncology [address] [address] Stefanie returns to clinic today for evaluation of her small cell lung cancer. ASSESSMENT AND PLAN: Stefanie Pina is a 67 y.o. former smoker diagnosed with limited stage [...] received hippocampal avoidant WBRT PCI in 12/2021. CT Chest and brain MRI reviewed. No evidence of recurrence. Plan: - Most recent CT chest and MRI brain reviewed and no evidence of recurrence or metastasis - Continue abstaining from smoking - RTC in [address] chest and MRI brain. At that point, we can discuss whether or not to continue with brain surveillance. - Continue to follow PCP closely for management of COPD # Chronic back pain - well managed with MJ gummies. No longer using opiates. Cailin LaRoza, ORGAN PIPE VOICER 04/28/2023 Medical Oncology and Hematology [facility] CC: Dino Siegel MD Interval History/Subjective: Last seen 10/28/22 Still not smoking Recently started on some inhalers by her PCP, thinks her breathing may be somewhat worse, had thought it was her COPD. She was also started on Singulair. Weight up a bit this visit, appetite has been good. Breathing is okay, she does get a bit winded on exertion, but still able to do a flight of stairs without stopping. Still struggles with vertigo every now and then. No headaches Her chronic pain is fairly well controlled with her MJ gummies PRN at this point- not using the opioids. No belly pain No fevers no infections No new health concerns Oncology Overview: Cancer Staging Small cell carcinoma [...] Appears amenable to transbronchoscopic biopsy. Referral to shrink pit operator advised. 06.06.21 CT Abdomen Pelvis 1. .No [...] versus lymph node. No new findings. 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 The immunoperoxidase stain results support the diagnosis Molecular Data: NA Treatment Course: 07.04.21 C1D1 Carboplatin/Etoposide 07.17.21 Admitted to [facility] with abdominal pain and found to have acute uncomplicated diverticulitis. Treated with abx and discharged on 1.3.22 C2 with concurrent BID radiation ending 08.24.21 [...] Other reaction(s): Dermatological problems, e.g., rash, hives; Red Blood Cells Other (See Comments) Antibodies-Difficult to Crossmatch DO NOT REMOVE Please contact the Blood Bank at [phone] for questions. Sulfamethoxazole-Trimethoprim Other reaction(s): Respiratory problems, e.g., wheezing;Dermatological problems, e.g., rash, hives; Methadone Other reaction(s): vomiting Mold Extracts Mushroom Flavor PHYSICAL EXAMINATION: Wt Readings from Last 3 Encounters: 04/28/23 67.9 kg (149 lb 9.6 oz) 10/28/22 64 kg (141 lb) 09/16/22 63.5 kg (140 lb) Temp Readings from Last 3 Encounters: 04/28/23 36.2 ??C (97.1 ??F) (Temporal) 10/28/22 36.3 ??C (97.3 ??F) (Temporal) 09/16/22 36.4 ??C (97.5 ??F) (Temporal) BP Readings from Last 3 Encounters: 04/28/23 122/56 10/28/22 123/53 09/16/22 124/55 Pulse Readings from Last 3 Encounters: 04/28/23 74 10/28/22 70 09/16/22 72 Physical Exam BP 122/56 (Patient Position: Sitting) Pulse 74 Temp 36.2 ??C (97.1 ??F) (Temporal) Resp 18 Ht 165.1 cm (5' 5) Wt 67.9 kg (149 lb 9.6 oz) SpO2 93% BMI 24.89 kg/m?? Constitutional: Oriented to person, place, and [...] Normal mood and affect. Thought content normal. Data Review: 04/21/23 MRI Brain 04/21/23 CT Chest 04/21/23 Labs: WBC 6.04, H/H 13.5/42.7, plt 259, ANC 4370, Na 138, K 3.8, Cl 100, CO2 26.8, BUN 16, Creat 0.9, glucose 110, Ca 9.9, t bili 0.4, AST 16, ALT 25, alk phos 87, t protein 8.2, Albumin 3.[address] Chest 10.14.[address] CHest 01.31.22 White blood cell count 5.24 hemoglobin 12.9 platelet count 209,000 absolute neutrophil count 3.77 Sodium 138 potassium 3.3 slightly low chloride 99 BUN 15 creatinine 1.0 glucose 124 calcium 9.4 magnesium 1.8 total bilirubin 0.4 AST 11 ALT 18 alk phos 60 albumin 3.8 2.14.22 White blood cell count 1.55 hemoglobin 9.1 platelet count 125,000 absolute neutrophil count 0.56 Sodium 143 potassium 3.9 chloride 104 BUN 13 creatinine 0.8 glucose 87 calcium 8.8 magnesium 1.9 LFTs within normal limits albumin 3.4 08/29/21- WBC-6.94 Hgb/Hct-11.5/36.8 Plt-351 ANC-5.09 Na-141 K+-3.8 BUN/Cr-22/1.0 Glucose-91 Ca-9.3 Mg-2.1 T. Bili-0.2 AST-13 ALT-20 Alk phos-73 Albumin-3.5 1.3.22 White blood cell count 5.28 hemoglobin 11.7 platelet count 293,000 absolute neutrophil count3.31 Sodium 143 potassium 4.5 chloride 106 BUN 19 creatinine 0.9 glucose 98 calcium 9.0 magnesium 2.2 total bilirubin 0.3 AST 15 ALT 22 alk phos 55 albumin 3.6 Imaging Review: .08.25 3.122 MRI Brain (I reviewed the imaging personally which shows no indication of disease.) No intracranial metastatic disease 07.17.21 CT Abdomen FINDINGS: Lower chest: Normal. Liver: Normal size and attenuation without suspicious lesions. Unchanged small cyst in the right lobe. Bile ducts: Persistent CBD dilatation at 12 mm. Gallbladder: No calcified gallstones. Normal caliber wall. Pancreas: Normal attenuation. Mild uniform prominence of the main pancreatic duct. Spleen: Normal. Adrenals: Normal. Kidneys: Normal. Urinary Bladder: Normal. Vasculature: Dense atherosclerotic calcifications in the abdominal aorta and the iliac arteries. No aneurysmal dilatation. Lymph Nodes: No enlarged lymph nodes. Bowel: No abnormal small bowel dilatation or air-fluid levels. Moderate volume formed colonic stool. Chronic thickening of the sigmoid colon containing multiple diverticula. An inflamed sigmoid diverticulum surrounded by mesenteric fat stranding. Peritoneum and mesentery: No ascites, free air, or loculated fluid collection. Abdominal wall: Intact Reproductive organs: Normal. Evidence of prior tubal ligation. Osseous structures: Facet hypertrophic changes in the lower lumbar spine. No suspicious lesions. IMPRESSION 1. Acute uncomplicated sigmoid diverticulitis. 2. Ancillary findings as above. documented in this encounter Plan of Treatment Upcoming Encounters Date Type Department Care Team (Late st Contact Info) Description 08/30/2024 2:00 PM EST Office Visit Hematology/Oncology at [address] [phone] Mars Conley MD [facility] [place] [address] Cailin Marrero, ORGAN PIPE VOICER [address] [place] [address] [place] [address] 09/07/2024 9:00 AM EST Office [place] [phone] Raven Alvarado MD [facility] [place] [place] [address] 10/04/2024 1:15 PM EST Office [place] [phone] Feliciano Shay, [facility] [place] [place] [address] documented as of this encounter Visit Diagnoses Diagnosis Small cell carcinoma of lung Malignant neoplasm of bronchus and lung, unspecified site documented in this encounter Care Teams Direct Service Worker Relationship Specialty Start Date End Date Marco Antonio-Nini Landrum MD [address] [facility] [address] [place] [address] PCP - General 06/26/10 documented as of this encounter
--- OUTSIDE RECORDS SUMMARY | 2024-08-27 00:46 | XMS_ITS | Encounter Summary ---
Author Organization [facility] Address [facility] [place] [address] Care Team Providers Care Industrial Conveyor Belt Repairer Name Role Phone Nini Machado MD Primary Care Provider [phone] Encounter Details Date Type Department Care Team (Late st Contact Info) Description 04/21/2023 10:30 PM EDT Ancillary Procedure Radiology Library at [facility] [place] [address] Mars Conley MD [facility] HEMATOLOGY [place] [address] Social History Tobacco Use Types Packs/Day Years [...] to sleep or slept in a senior living (including now)? No 06/20/2021 Sex and Gender Information Value Date Recorded Sex Assigned at Not on file Gender Identity Not on file Sexual Orientation Not on file documented as of this encounter Plan of Treatment Upcoming Encounters Date Type Department Care Team (Late st Contact Info) Description 08/30/2024 2:00 PM EST Office Visit Hematology/Oncology at [address] [phone] Mars Conley MD [facility] DR HEMATOLOGY [place] [address] Cailin Marrero APRN [address] [place] [address] DR [place] [address] 09/07/2024 9:00 AM EST Office [place] [phone] Raven Alvarado MD [facility] [place] [address] 10/04/2024 1:15 PM EST Office [place] [phone] Feliciano Shay, [facility] [place] [address] documented as of this encounter Procedures Procedure Name Priority Date/Time Associated Diagnosis Comments FILM LIBRARY STORAGE ONLY CT CHEST Routine 04/21/2023 10:25 PM EDT documented in this encounter Results * Film Library- Storage Only CT Chest (04/21/2023 10:25 PM EDT) Narrative [facility] - 04/21/2023 10:25 PM EDT This exam is auto-finalizing. It's purpose is for storage only. Mars Conley MD IMG FILM LIBRARY ORD ERABLES [place], [place] documented in this encounter Visit Diagnoses Not on filedocumented in this encounter Care Teams Industrial Conveyor Belt Repairer Relationship Specialty Start Date End Date Nini Machado MD [address] [address] PCP - General 06/26/10 documented as of this encounter
--- OUTSIDE RECORDS SUMMARY | 2024-08-27 00:46 | XMS_ITS | Encounter Summary ---
Author Organization [facility] Address [facility] [place] [address] Care Team Providers Care Animal Killer Name Role Phone Nini Machado MD Primary Care Provider [phone] Encounter Details Date Type Department Care Team (Late st Contact Info) Description 10/13/2023 12:05 AM EDT Ancillary Procedure Radiology Library at [place] [phone] Mars Conley MD [facility] [place] [address] Social History Tobacco Use Types Packs/Day Years [...] a senior care (including now)? No 06/20/2021 Sex and Gender Information Value Date Recorded Sex Assigned at Not on file Gender Identity Not on file Sexual Orientation Not on file documented as of this encounter Plan of Treatment Upcoming Encounters Date Type Department Care Team (Late st Contact Info) Description 08/30/2024 2:00 PM EST Office Visit Hematology/Oncology at [address] [phone] Mars Conley MD [facility] [place] [address] Cailin Marrero APRN [address] [place] [address] DR [place] [address] 09/07/2024 9:00 AM EST Office [place] [phone] Raven Alvarado MD [facility] [place] [place] [address] 10/04/2024 1:15 PM EST Office [place] [phone] Feliciano Shay, [facility] [place] [place] [address] documented as of this encounter Procedures Procedure Name Priority Date/Time Associated Diagnosis Comments FILM LIBRARY STORAGE ONLY MR HEAD Routine 10/13/2023 12:05 AM EDT documented in this encounter Results * Film Library- Storage Only MR Head (10/13/2023 12:05 AM EDT) Narrative [facility] - 10/24/2023 12:50 PM EDT This exam is auto-finalizing. It's purpose is for storage only. Mars Conley MD IMG FILM LIBRARY ORD ERABLES [place], [place] documented in this encounter Visit Diagnoses Not on filedocumented in this encounter Care Teams Animal Killer Relationship Specialty Start Date End Date Nini Machado MD [address] [address] PCP - General 06/26/10 documented as of this encounter
--- OUTSIDE RECORDS SUMMARY | 2024-08-27 00:46 | XMS_ITS | Encounter Summary ---
Author Organization [facility] Address [facility] [place] [address] Care Team Providers Care Antique Repairer Name Role Phone Nini Machado MD Primary Care Provider Reason for Visit * Reason Comments Glare OU * Consultation (Routine) - Closed Specialty Diagnoses / Procedures Referred By Aldo sotelo Referred To Contact Ophthalmology Diagnoses CAT EVAL OU Earl Pemberton, OD [address] [place] [address] Wei Ryan MD [facility] [place] [address] Referral ID Status Reason Start Date Expiration Date V isits Requested Visits Authorized [id number] Closed Consult, Test & Treat 05/16/2023 05/15/2024 1 1 Encounter Details Date Type Department Care Team (Late st Contact Info) Description 10/17/2023 1:00 PM EDT Office [place] [address] Wei Ryan MD [facility] [place] [address] Age-related nuclear cataract of both eyes Social History Tobacco Use Types Packs/Day Years [...] in a halfway (including now)? No 06/20/2021 Sex and Gender Information Value Date Recorded Sex Assigned at Not on file Gender Identity Not on file Sexual Orientation Not on file documented as of this encounter Patient Instructions * Patient Instructions* Wei Ryan MD - 10/17/2023 1:00 PM EDT Medications: Use eye medications as instructed by Dr. Ryan during your appointment. For non eye medications not prescribed by the Ophthalmology (Eye) Clinic, please follow up with your PCP (primary care provider) for instructions. Dilation: Your eyes may have been dilated during your visit. Patients response to dilation varies and the duration of dilation can range from 4 to 24 hours. Be careful with visually demanding tasks until these effects have worn off. Driving: Wait until your vision has returned to normal baseline after your eye visit before driving. Changes in vision or eyes: Please call the eye clinic, , for any significant changes invision, new flashes or floaters or eye pain Eye safety is important: please use eye protection during any activities in which you could injury your eyes. documented in this encounter Progress Notes * Wei Ryan MD - 10/17/2023 1:00 PM EDT Assessment: Encounter Diagnoses Name Primary? Age-related nuclear cataract of both eyes Plan: Stefanie Pina has visually significant cataract interfering with visual tasks. Cataract seems january substantially contributing to their visual loss and I did not identify other ocular conditions, other than noted in this report, to explain their symptoms and findings. Stefanie Pina understands that residents may participate in the surgery. Myopic progression OD. We discussed the risks, benefits and alternatives to cataract surgery. IOL alternatives were also reviewed. Stefanie expressed understanding and elected cataract surgery in her RIGHT eye with a monofocal IOL. - Target Refraction: -0.5D -Discussed that this is an estimate and that there would likely be a post operative need for glasses to achieve best vision. - Special surgical issues: None,Says its ok to use ceft - Retinal lesion OD, seen with Dr Evangelista and he examine CR scar OD and did not think it represented a break or required laser - Dilation: great - Code status: full code for eye surgery Lives in [facility], not appropriate for [facility] - Allergies: Allergies Allergen Reactions Aspirin CIS - Anaphylaxis Nitrofurantoin Monohyd/M-Cryst Other reaction(s): hands tingling, pins and needles, face swollen. Nsaids (Non-Steroidal Anti-Inflammatory Drug) Other reaction(s): Shock / Unconsciousness; Penicillins Other reaction(s): Dermatological problems, e.g., rash, hives; Says cefs are ok Red Blood Cells Other (See Comments) Antibodies-Difficult to Crossmatch DO NOT REMOVE Please contact the Blood Bank at [phone] for questions. Sulfamethoxazole-Trimethoprim Other reaction(s): Respiratory problems, e.g., wheezing;Dermatological problems, e.g., rash, hives; Methadone Other reaction(s): vomiting Mold Extracts Mushroom Flavor - Surgical orders entered - Surgical consent signed - AAO cataract handouts given - Surgical coordination initiated - Call prn any problems or questions. - Cautioned about driving in the perioperative period Upon Return I, Elina Espino, have performed the documentation for this encounter in the presence of and acting as a scribe for Wei Ryan MD. I performed the services which were documented by the scribe, and I agree with the accuracy of the documentation in this encounter. Wei Ryan MD. documented in this encounter Plan of Treatment Upcoming Encounters Date Type Department Care Team (Late st Contact Info) Description 08/30/2024 2:00 PM EST Office Visit Hematology/Oncology at [address] [phone] Mars Conley MD [facility] DR HEMATOLOGY [place] [address] Cailin Marrero APRN [address] [place] [address] DR HEMATOLOGY AND ONCOLOGY [place], [place] [id number] 09/07/2024 9:00 AM EST Office [place] [phone] Raven Alvarado MD [facility] [place] [address] 10/04/2024 1:15 PM EST Office [place] [phone] Feliciano Shay, [facility] [place] [address] documented as of this encounter Procedures Procedure Name Priority Date/Time Associated Diagnosis Comments [id number] CALC BY LASER INTERFEROMETRY - OU - BOTH EYES Routine 10/17/2023 3:40 PM EDT Age-related nuclear cataract of both eyes documented in this encounter Results * [id number] Calc By Laser Interferometry - OU - Both Eyes (10/17/2023 3:40 PM EDT) Anatomical Region Laterality Modality Other Narrative 10/17/2023 3:40 PM EDT Table formatting from the original result was not included. Patient Hx Past Medical Hx ??Pt. ??has a past medical history of Back pain, chronic, Depression, Hemorrhoids, external, [place] (hard of hearing), Leg cramps, Migraines, Rhinitis, allergic, Tobacco dependence, Tubular adenoma of colon, and Venous insufficiency. Past Ophth Surg Hx ??No relevant surgical history has been documented for this patient. Eye Meds ??EPINEPHrine, UNABLE TO FIND, albuteroL, estradioL, lidocaine, montelukast, pravastatin, and sertraline IOL Biometry - Initial (source: LENSTAR) OD OS Date Performed 10/17/2023 ??2:05 PM 10/17/2023 ??2:05 PM ?? Target Refraction -0.25 -0.25 ?? Axial Length 22.9 (mm) 22.98 (mm) ?? Anterior Chamber Depth 3.17 (mm) 3.09 (mm) ?? Horizontal White to White 12.3 (mm) 12.27 (mm) ?? Formula Used ? K's 43.85, 44.06@152, 166 / 44.57, 44.94@062, 076 44.13, 44.35@180, 004 / 44.37, 44.76@090, 094 ? Add'l Comments/Discrepancies/Concerns: POM done by ROBBIN on 10/17/2023 IOL-Master results: AL - OD: 22.90 mm ?? OS: 22.99 mm ACD - OD: 3.23 mm ?? OS: 3.21 mm WTW - OD: 12.40 mm ?? OS: 12.30 mm Wei Ryan MD OPHTHALMOLOGY SERVIC ES ORDERABLES documented in this encounter Visit Diagnoses Diagnosis Age-related nuclear cataract of both eyes Senile nuclear sclerosis documented in this encounter Care Teams Antique Repairer Relationship Specialty Start Date End Date Marco Antonio-Nini Landrum MD [address] [id number] PCP - General 06/26/10 documented as of this encounter
--- OUTSIDE RECORDS SUMMARY | 2024-08-27 00:46 | XMS_ITS | Encounter Summary ---
Author Organization [facility] Address [facility] [place] [address] Care Team Providers Care Bulk Plant Agent Name Role Phone Nini Machado MD Primary Care Provider [phone] Encounter Details Date Type Department Care Team (Late st Contact Info) Description 07/01/2023 Interpretation Only [facility] [address] [place] [phone] Nini Machado MD [address] [facility] [address] [place] [address] Social History Tobacco Use Types [...] 2:00 PM EST Office Visit Hematology/Oncology at [address] [phone] Mars Conley MD [facility] DR HEMATOLOGY [place] [address] Cailin Marrero APRN [address] [place] [address] DR [place] [address] 09/07/2024 9:00 AM EST Office [place] [phone] Raven Alvarado MD [facility] [place] [address] 10/04/2024 1:15 PM EST Office [place] [phone] Feliciano Shay, [facility] [place] [address] documented as of this encounter Procedures Procedure Name Priority Date/Time Associated Diagnosis Comments MAMMO SCREENING CAD BILATERAL (CH) Routine 07/01/2023 11:25 AM EST documented in this encounter Results * MAMMO SCREENING CAD BILATERAL (CH) (07/01/2023 11:25 AM EST) PT CLASS RAD ADMITDTTM RAD PT RAD INFO [id number]^You carleen-Landrum^Nini RAD EXAM DESC MADDSCC^MG Mammo Digital Screening Bilateral.^RIS RAD Anatomical Region Laterality Modality Other 07/01/2023 11:2 5 AM EST Impressions 07/07/2023 1:24 PM EST BI-RADS Category 1: Negative RECOMMENDATION: Routine mammography screening * ??Regular screening mammograms starting at age 40 reduces the risk of from breast cancer. * ??Yearly screening provides the most benefit. Women should discuss with their provider their preferred breast cancer screening schedule. * ??Women should report any breast changes to a health care provider right away. * ??Some women, because of their family history, a genetic tendency, or other factors, should be screened with annual breast MRI as well as with mammograms. Thank you for letting us participate in the care of this patient. ??If you are a health care provider and have any questions regarding this report, please contact the number below. ??For patients who have questions please contact the health career portals teacher that requested your imaging first. ? Electronically signed by: Antoni Ramirez MD, [facility] ([phone]), at 07/07/2023 1:24 PM Narrative 07/07/2023 1:24 PM EST EXAMINATION: MG Mammo Digital Screening Bilateral. REASON FOR EXAM: Screening Family history of breast cancer: None Reproductive history: Parous No personal history of breast cancer. COMPARISON: Previous mammograms were reviewed. TECHNIQUE: ??2D CC and MLO views were obtained of BOTH breasts. ??Computer aided detection was used. FINDINGS: There are no suspicious microcalcifications, masses, or areas of distortion. No changes compared to prior studies. BREAST DENSITY: There are scattered areas of fibroglandular density. Procedure Note Antoni Ramirez MD - 07/07/2023 EXAMINATION: MG Mammo Digital Screening Bilateral. REASON FOR EXAM: Screening Family history of breast cancer: None Reproductive history: Parous No personal history of breast cancer. COMPARISON: Previous mammograms were reviewed. TECHNIQUE: 2D CC and MLO views were obtained of BOTH breasts. Computeraided detection was used. FINDINGS: There are no suspicious microcalcifications, masses, or areasof distortion. No changes compared to prior studies. BREAST DENSITY: There are scattered areas of fibroglandular density. IMPRESSION BI-RADS Category 1: Negative RECOMMENDATION: Routine mammography screening * Regular screening mammograms starting at age 40 reduces the risk ofdeath from breast cancer. * Yearly screening provides the most benefit. Women should discuss withtheir provider their preferred breast cancer screening schedule. * Women should report any breast changes to a health care provider rightaway. * Some women, because of their family history, a genetic tendency, orother factors, should be screened with annual breast MRI as well as withmammograms. Thank you for letting us participate in the care of this patient. If youare a health care provider and have any questions regarding this report,please contact the number below. For patients who have questions please contactthe health career portals teacher that requested your imaging first. Electronically signed by: Antoni Ramirez MD, [facility]([phone]), at 07/07/2023 1:24 PM Nini Machado MD PACS IM[employer] documented in this encounter Visit Diagnoses Not on filedocumented in this encounter Care Teams Bulk Plant Agent Relationship Specialty Start Date End Date Nini Machado MD [address] [place] [address], [place] [address] PCP - General 06/26/10 documented as of this encounter
--- OUTSIDE RECORDS SUMMARY | 2024-08-27 00:46 | XMS_ITS | Encounter Summary ---
Author Organization [facility] Address [facility] [place] [address] Care Team Providers Care Unit Manager [employer]ience Stores Name Role Phone Nini Machado MD Primary Care Provider [phone] Encounter Details Date Type Department Care Team (Latest Contact Info) Description 11/21/2022 9:30 AM EDT TH Visit (TeleHealth) [place] [address] Senthil Muller MD [facility] [place] [address] Small cell carcinoma of right lung Social History Tobacco Use Types Packs/Day [...] in a jail (including now)? No 06/20/2021 Sex and Gender Information Value Date Recorded Sex Assigned at Not on file Gender Identity Not on file Sexual Orientation Not on file documented as of this encounter Progress Notes * Senthil Muller MD - 11/21/2022 9:30 AM EDT Images from the original note were not included. [facility] Radiation Oncology Radiation Oncology Follow Up Visit Patient Identity: Patient name: Stefanie Pina Date of : 1955 Chief complaint: Limited stage small cell lung cancer ? Post-radiation oral mucositis Referring: Nini Machado MD [address] [place] [address] History: Oncologic History: 09/2021 Diagnosed and treated for limited stage small cell lung cancer (carboplatin/CASKET ASSEMBLER METAL-16 with 45 GyBID thoracic radiation therapy) 11/2021 Prophylactic cranial RT (25Gy in 10 fractions) Interval History: Seen today using the telephone for routine FU. She reports feeling very well. Occasionally she has some short-term memory lapses, but these are inconsequential for her. Breathing is good. Recently had colonoscopy with good result. She had a brain MRI and chest CT at [facility] 10/14/2022 and it shows no brain metastases. Her last priorchest CT was in June and it also showed no evidence of recurrent cancer. I have personally reviewed the imaging studies referenced above. Exam: No data found. No exam done due to telephone format of this visit KPS ECOG Definition [x] 90-100 0 Fully active, able to carry on all pre-disease performance without restriction [] 70-80 1 Restricted in physically strenuous activity but ambulatory and able to carry out work ofa light or sedentary nature, e.g., light house work, office work [] 50-60 2 Ambulatory and capable of all selfcare but unable to carry out any work activities; up and about more than 50% of waking hours [] 30-40 3 Capable of only limited selfcare; confined to bed or chair more than 50% of waking hours [] 10-20 4 Completely disabled; cannot carry on any selfcare; totally confined to bed or chair Summary/Recommendations: Impression: Stefanie is doing very well. It has been 13 months since she completed prophylactic cranial irradiation and her MRI shows no evidence of brain metastases. Chest CT is also JAIRO. She has minimal side effects of the treatment to report at this time. She is pleased with her current status. Plan: 1. Brain MRI in 6 months for routine surveillance, then FU afterward. Both are ordered by Dr. Conley.I will sched FU with her again in ~6 months. Thank you for allowing me to participate in the care of Stefanie Pina. Senthil Muller MD New Orders: No orders of the defined types were placed in this encounter. ??? National [facility] [place] (NCI) Comprehensive Cancer Center ??? [employer] Commission on Cancer (ACS [place]) Accredited Cancer Program ??? [employer] (ACR) Accredited Radiation Oncology Program documented in this encounter Plan of Treatment Upcoming Encounters Date Type Department Care Team (Late st Contact Info) Description 08/30/2024 2:00 PM EST Office Visit Hematology/Oncology at [address] [phone] Mars Conley MD [facility] DR HEMATOLOGY [place] [address] Cailin Marrero APRN [address] [place] [address] DR HEMATOLOGY AND ONCOLOGY [place], [place] [id number] 09/07/2024 9:00 AM EST Office [place] [phone] Raven Alvarado MD [facility] [place] [address] 10/04/2024 1:15 PM EST Office [place] [phone] Feliciano Shay, [facility] [place] [address] documented as of this encounter Visit Diagnoses Diagnosis Small cell carcinoma of right lung documented in this encounter Care Teams Unit Manager [employer] Relationship Specialty Start Date End Date Marco Antonio-Nini Landrum MD [address] [address] PCP - General 06/26/10 documented as of this encounter
--- OUTSIDE RECORDS SUMMARY | 2024-08-27 00:46 | XMS_ITS | Encounter Summary ---
Author Organization [facility] Address [facility] [place] [address] Care Team Providers Care Mailmaster Name Role Phone Nini Machado MD Primary Care Provider [phone] Encounter Details Date Type Department Care Team (Late st Contact Info) Description 10/13/2023 12:10 AM EDT Ancillary Procedure Radiology Library at [facility] [place] [address] [facility] HEMATOLOGY [place] [address] Social History Tobacco Use Types Packs/Day Years [...] in a fdc (including now)? No 06/20/2021 Sex and Gender Information Value Date Recorded Sex Assigned at Not on file Gender Identity Not on file Sexual Orientation Not on file documented as of this encounter Plan of Treatment Upcoming Encounters Date Type Department Care Team (Late st Contact Info) Description 08/30/2024 2:00 PM EST Office Visit Hematology/Oncology at [address] [phone] [facility] DR [place] [address] Cailin Marrero APRN [address] [place] [address] DR [place] [address] 09/07/2024 9:00 AM EST Office [place] [phone] [facility] [place] [address] 10/04/2024 1:15 PM EST Office [place] [phone] [address] Shay, [facility] [place] [address] documented as of this encounter Procedures Procedure Name Priority Date/Time Associated Diagnosis Comments FILM LIBRARY STORAGE ONLY CT CHEST Routine 10/13/2023 12:10 AM EDT documented in this encounter Results * Film Library- Storage Only CT Chest (10/13/2023 12:10 AM EDT) Narrative [facility] - 10/24/2023 12:51 PM EDT This exam is auto-finalizing. It's purpose is for storage only. Mars Conley MD IMG FILM LIBRARY ORD ERABLES [place], [place] documented in this encounter Visit Diagnoses Not on filedocumented in this encounter Care Teams Mailmaster Relationship Specialty Start Date End Date Nini Machado MD [address] [address] PCP - General 06/26/10 documented as of this encounter
--- OUTSIDE RECORDS SUMMARY | 2024-08-27 00:46 | XMS_ITS | Encounter Summary ---
Author Organization [facility] Address [facility] [place] [address] Care Team Providers Care Car Rental Sales Assistant Name Role Phone Nini Machado MD Primary Care Provider [phone] Encounter Details Date Type Department Care Team (Late st Contact Info) Description 09/16/2022 1:39 PM EST Anesthesia [place] [address] Shanelle Escobar MD [facility] [place] [address] Anesthesia Record Procedure Summary Procedure Name Responsible Anesthesiologist Anesthesia Start Time Anesthesia Stop Time COLONOSCOPY FLEXIBLE, WITH BX (WRVU 3.56) Shanelle Escobar MD 09/16/22 1339 09/16/22 1410 Events Date Time Event Comment 09/16/2022 1329 1339 AN Verify 1339 Start 1339 An Start Data 1339 An Induction 1341 Anesthesia Ready 1410 an stop data 1410 Recovery or ICU Handoff Carrol ent care was transferred to the destination unit staff after review of the patient's medical history, current anesthetic/surgical status and plan, according to the Provider Handoff Checklist. 1410 Stop Meds Name Total IV Lidocaine 50 mg Propofol 100 mg Propofol INF 183.52 mg lactated ringers infusion 0 mL * Agents Name O2 Air N2O * Blood No blood administrations on file. Lines, Drains, and Airways Type Details Placement Removal (RETIRED) Peripheral IV Line - Single Lumen 09/16/22; 1330; cephalic vein (lateral side of arm), right; [id number] catheter system; Anatomical Landmarks; US Not Used; 20 gauge, 1 in length; distraction, tolerated well; 0; 09/16/22; 1437 09/16/22 1330 by Naty Sigala RN 09/16/22 1437 by Mariah Spencer RN documented in this encounter Social History Tobacco Use Types Packs/Day Years [...] place to sleep or slept in a penitentiary (including now)? No 06/20/2021 Sex and Gender Information Value Date Recorded Sex Assigned at Not on file Gender Identity Not on file Sexual Orientation Not on file documented as of this encounter OR Notes * Anesthesia Postprocedure Evaluation - Shanelle Escobar MD - 09/16/2022 3:11 PM EST Department of Anesthesiology Post-procedure Note Patient: Stefanie Pina Procedure Summary Date: 09/16/22 Room / Location: [facility] / [facility] Anesthesia Start: 1339 Anesthesia Stop: 1410 Procedure: COLONOSCOPY FLEXIBLE, WITH BX (WRVU 3.66) Diagnosis: High grade dysplasia in colonic adenoma (Lasrge SSA with HGD removed 06/2021 - schedule for December or January please 2021) Surgeons: Tonny Hurtado MD Responsible Provider: Shanelle Escobar MD Anesthesia Type: MAC ASA Status: 3 All Anesthesia Providers: Anesthesiologist: Shanelle Escobar MD BUSINESS ANALYSIS PROFESSIONAL: Curt Hoffman CRNA Vitals Value Taken Time BP 124/55 09/16/22 1430 Temp Pulse Resp 18 09/16/22 1430 SpO2 96 % 09/16/22 1433 Pain Level 0 09/16/22 1430 Vitals shown include unvalidated device data. Patient Location: PACU/[facility] Level of Consciousness: Awake and Alert Pain Management: Satisfactory Analgesia PONV: None Cardiovascular Status: At Baseline and Hemodynamically Stable Respiratory Status: At Baseline and Room Air Postoperative Fluid Status: Intravascular EUvolemia Possible Anesthetic Complications: NONE apparent at time of evaluation Final Primary Anesthesia Type: MAC (The anesthetic type performed was the same as planned.) Comments: Shanelle Escobar MD * Anesthesia Preprocedure Evaluation - Shanelle Escobar MD - 09/16/2022 1:18 PM EST Pre-Anesthesia Evaluation for: Stefanie Pina a 66 y.o. female. Procedure(s): COLONOSCOPY, DIAGNOSTIC Patient Active Problem List Diagnosis Date Noted ??? 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 Hard of hearing 02/02/2021 ??? External hemorrhoids without complication 02/03/2019 ??? Hyperlipidemia, mixed 08/13/2017 ??? 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 Allergic rhinitis 12/07/2014 ??? Leg cramps 11/18/2013 ??? Venous insufficiency 11/11/2012 ??? Benign neoplasm of colon, unspecified 04/14/2012 ??? Chronic low back pain 10/27/2007 ??? Generalized anxiety disorder 10/27/2007 ??? Chronic obstructive pulmonary disease 05/15/2007 ??? Major depressive disorder, single episode, unspecified 05/15/2007 Past Medical History: Diagnosis Date ??? Back pain, chronic ??? Depression ??? Hemorrhoids, external ??? RAMONA (hard of hearing) ??? Leg cramps ??? Migraines ??? Rhinitis, allergic ??? Tobacco dependence ??? Tubular adenoma of colon ??? Venous insufficiency Past Surgical History: Procedure Laterality Date ??? CYSTOSCOPY 2009 for microscopic hematuria ??? HEMORRHOID SURGERY ??? PRO [facility] EBUS GUIDED SAMPL 1/2 NODE STATION/STRUX N/A 06/14/2021 BRONCH, W ENDOBRONCHIAL ULTRASOUND (EBUS) GUIDED SAMPLING, 1/2 NODES (WRVU 4.71) performed by Sebastian Hadley MD at [facility] ??? PRO BRONCHOSCOPY, DIAGNOSTIC W LAVAGE N/A 06/14/2021 BRONCHOSCOPY, RIGID OR FLEXIBLE, WITH BRONCHIAL ALVEOLAR LAVAGE (WRVU 2.88) performed by Sebastian Hadley MD at [facility] ??? PRO COLONOSCOPY, FLEX, W/DIR SUBMUC INJECT N/A 06/27/2021 COLONOSCOPY WITH DIRECTED SUBMUCOSAL INJ (WRVU 3.66) performed by Marichuy Jimenez MD at [facility] ??? PRO COLONOSCOPY, REMV LESN, SNARE N/A 06/27/2021 COLONOSCOPY, POLYPECTOMY, REMOVAL LESION BY SNARE (WRVU 4.67) performed by Marichuy Jimenez MD at [facility] Social History Tobacco Use ??? Smoking status: Former Packs/day: 1.00 Years: 42.00 Pack years: 42.00 Types: Cigarettes Quit date: 03/11/2021 Years since quittin.5 ??? Smokeless tobacco: Never ??? Tobacco comments: vaping several x/day Substance Use Topics ??? Alcohol use: Never Social History Substance and Sexual Activity Drug Use Yes ??? Types: Narcotics, Pain Pills Comment: occasional use 2-3x/year Allergies Allergen Reactions ??? Aspirin CIS - Anaphylaxis ??? Nitrofurantoin Monohyd/M-Cryst Other reaction(s): hands tingling, pins and needles, face swollen. ??? Nsaids (Non-Steroidal Anti-Inflammatory Drug) Other reaction(s): Shock / Unconsciousness; ??? Penicillins Other reaction(s): Dermatological problems, e.g., rash, hives; ??? Red Blood Cells Other (See Comments) Antibodies-Difficult to Crossmatch DO NOT REMOVE Please contact the Blood Bank at [phone] for questions. ??? Sulfamethoxazole-Trimethoprim Other reaction(s): Respiratory problems, e.g., wheezing;Dermatological problems, e.g., rash, hives; ??? Methadone Other reaction(s): vomiting ??? Mold Extracts ??? Mushroom Flavor Medications: MAR and/or home medications have been reviewed. Physical Exam: Preprocedure Vitals Current as of 09/16/22 1318 No BP, pulse, respiration, SpO2, or temperature recorded. Height: Weight: BMI: IBW: Airway Assessment: Mallampati: I TM distance: >3 FB Neck ROM: full Cardiovascular Assessment: system normal Pulmonary Assessment: unlabored breathing Dental Assessment: Misc Assessment: Last Filed Perioperative Cognitive Screening None Anesthesia Plan: ASA 3 MAC, with a(n) intravenous induction 66yo 66kg (BMI 24) F s/f colonoscopy PMH significant for small cell lung ca, COPD, anxiety/depression. Has tolerated similar procedure under MAC in the past without issue. Plan: MAC, PIV access, standard ASA monitors Region - Other Informed Consent: Anesthetic plan and risks discussed with patient. Plan discussed with BUSINESS ANALYSIS PROFESSIONAL. Anesthesia Screening documented in this encounter Plan of Treatment Upcoming Encounters Date Type Department Care Team (Late st Contact Info) Description 08/30/2024 2:00 PM EST Office Visit Hematology/Oncology at [address] [address] Mars Conley MD [facility] [place] [address] Cailin Marrero APRN [address] [place] [address] DR [place]Y [place] [address] 09/07/2024 9:00 AM EST Office [place] [phone] Raven Alvarado MD [facility] [place] [address] 10/04/2024 1:15 PM EST Office [place] [phone] Feliciano Shay, [facility] [place] [address] documented as of this encounter Visit Diagnoses [...] 1:30 PM EST 100 mL/hr 100 mL/hr lidocaine (pf) (Xylocaine) (20 mg/mL) 2% injection syringe Intravenous, PRN, Starting on Fri09/16/22 at 1339, Until Fri09/16/22 at 1413, Anesthesia Intra-op, Routine Given 09/16/2022 1:39 PM EST 50 mg propofoL (Diprivan) (10 mg/mL) infusion Intravenous, CONTINUOUS PRN, Starting on Fri09/16/22 at 1346, Until Fri09/16/22 at 1413, Anesthesia Intra-op, Routine Rate/Dose Change 09/16/2022 1:48 PM EST 125 mcg/kg/min 47.625 mL/hr New Bag 09/16/2022 1:46 PM EST 70 mcg/kg/min 26.67 mL/h r propofoL (Diprivan) 10 mg/mL bolus injection (Anesthesia) Intravenous, PRN, Starting on Fri09/16/22 at 1340, Until Fri09/16/22 at 1413, Anesthesia Intra-op Given 09/16/2022 1:45 PM EST 30 mg Given 09/16/2022 1:40 PM EST 70 mg documented in this encounter Care Teams Car Rental Sales Assistant Relationship Specialty Start Date End Date Marco Antonio-Nini Landrum MD [address] [place] [address] PCP - General 06/26/10 documented as of this encounter
--- OUTSIDE RECORDS SUMMARY | 2024-08-27 00:46 | XMS_ITS | Encounter Summary ---
Author Organization [facility] Address [facility] [place] [address] Care Team Providers Care Design Draftsman Name Role Phone Nini Machado MD Primary Care Provider [phone] Encounter Details Date Type Department Care Team (Late st Contact Info) Description 09/15/2023 Telephone Hematology [place] [address] TherouxGwen Social History Tobacco Use Types Packs/Day Years [...] medical appointments or from getting medications? Yes 11/1 02/2021 In the past 12 months, has l [...] in a custodial (including now)? No 06/20/2021 Sex and Gender Information Value Date Recorded Sex Assigned at Not on file Gender Identity Not on file Sexual Orientation Not on file documented as of this encounter Miscellaneous Notes * Telephone Encounter - Gwen Kee - 09/15/2023 1:37 PM EST Procedure Prior Authorization Procedure/Cpt: [address] Ct chest, [address] MRI Brain Rationale: C34.90 Health Plan: [facility] Authorizing Vendor: [facility] ([phone]) Service Order/Case ID: Authorization #: Effective Date: Status: Rendering Facility: Per Jyoti: Medicaid termed on 06/25/23 documented in this encounter Plan of Treatment Upcoming Encounters Date Type Department Care Team (Late st Contact Info) Description 08/30/2024 2:00 PM EST Office Visit Hematology/Oncology at [address] [phone] Mars Conley MD [facility] [place] [address] Cailin Marrero APRN [address] [place] [address] DR HEMATOLOGY [place] [address] 09/07/2024 9:00 AM EST Office Visit [place] [address] Raven Alvarado MD [facility] [place] [address] 10/04/2024 1:15 PM EST Office [place] [phone] Feliciano Shay, [facility] [place] [address] documented as of this encounter Visit Diagnoses Not on filedocumented in this encounter Care Teams Design Draftsman Relationship Specialty Start Date End Date Marco Antonio-Nini Landrum MD [address] [facility] [address] [place] [address] PCP - General 06/26/10 documented as of this encounter
--- OUTSIDE RECORDS SUMMARY | 2024-08-27 00:46 | XMS_ITS | Encounter Summary ---
Author Organization [facility] Address [facility] [place] [address] Care Team Providers Care Language Interpreter Name Role Phone Nini Machado MD Primary Care Provider [phone] Encounter Details Date Type Department Care Team (Late st Contact Info) Description 10/28/2022 10:30 AM EDT Office Visit Hematology/Oncology at [address] [phone] Mars Conley MD [facility] DR HEMATOLOGY [place] [address] Cailin Marrero [address] HEMATOLOGY AND ONCOLOGY [place], [place] [phone] Small cell carcinoma of lung Social History [...] Sign Reading Time Taken Comments Blood Pressure 123/53 10/28/2022 10:45 AM EDT Pulse 70 10/28/2022 10:45 AM EDT Temperature 36.3 ??C (97.3 ??F) 10/28/2022 10:45 AM E DT Respiratory Rate 18 10/28/2022 10:45 AM EDT Oxygen Saturation 97% 10/28/2022 10:45 AM EDT Inhaled Oxygen Concentration - - Weight 64 kg (141 lb) 10/28/2022 10:45 AM EDT Height 165.1 cm (5' 5) 10/28/2022 10:45 AM EDT Body Mass Index 23.46 10/28/2022 10:45 AM EDT documented in this encounter Progress Notes * Mars Conley MD - 10/28/2022 10:30 AM EDT Images from the original note were not included. Hematology & Medical Oncology [address] [phone] Stefanie returns to clinic today for evaluation of her small cell lung cancer. ASSESSMENT AND PLAN: Stefanie Pina is a 66 y.o. former smoker diagnosed with limited stage [...] then received hippocampal avoidant WBRT PCI in . CT Chest and brain MRI reviewed. No evidence of recurrence. Plan: - Discussed the findings and plan for ongoing followup. Discussed the need to never smoke again andneed for ongoing surveillance. Discussed that she remains at risk for recurrence. - Will plan for brain MRI and CT chest in ~5-6 months with labs and then clinic visit to review # Chronic back pain - she weaned herself off opioids and is now using just MJ gummies with decent control. Mars Conley MD, MS 10/28/2022 Thoracic Oncology [facility] CC: Dino Siegel MD Interval History/Subjective: Last seen 06/17/2022 Not smoking Dyed her hair purple Food no longer tastes off Weight generally stable Breathing is stable and generally good. Goes for a daily walk-walks around the yard. Can up a flight of stairs without stopping. Had vertigo recently- went to the ED. Got meclizine and doing better. Also got [place]-Armijo pike instruction. No headaches Her chronic pain is fairly [...] Appears amenable to transbronchoscopic biopsy. Referral to paper guillotine operator advised. 06.06.21 CT Abdomen Pelvis 1. [...] versus lymph node. No new findings. Pathology: [id number] ? 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 The immunoperoxidase stain results support the diagnosis Molecular Data: NA Treatment Course: 07.04.21 C1D1 Carboplatin/Etoposide 07.17.[address] [facility] with abdominal pain and found to have acute uncomplicated diverticulitis. Treated with abx and discharged on 08.06.21 C2 with concurrent BID radiation ending 08.24.21 45 Gy in 30 fractions 08.29.21 C3 09.25.21 C4 PCI- hippocampal avoidant WBRT 08/08/2021 08/29/2021 08/30/2021 08/31/2021 09/24/2021 09/25/2021 09/26/2021 ONCBCN ONCOLOGY (AMB) Day, Cycle Day 3, Cycle 2 Day 1, Cycle 3 Day 2, Cycle 3 Day 3, Cycle 3 Day 1, Cycle 4 Day 2, Cycle 4 Day 3, Cycle 4 CARBOplatin (Paraplatin) IV 383 mg 412 mg etoposide 20 mg/mL (Vepesid) IV 100 mg/m2/dose = 165 mg 100 mg/m2/dose = 165 mg 100 mg/m2/dose = 165 mg 100 mg/m2/dose = 165 mg 100 mg/m2/dose = 165 mg 100 mg/m2/dose = 165 mg 100 mg/m2/dose = 165 mg Multiple values from one day are sorted in reverse-chronological order Allergies Allergen Reactions ??? Aspirin CIS - Anaphylaxis ??? Nitrofurantoin Monohyd/M-Cryst Other reaction(s): hands tingling, pins and needles, face swollen. ??? Nsaids (Non-Steroidal Anti-Inflammatory Drug) Other reaction(s): Shock / Unconsciousness; ??? Penicillins Other reaction(s): Dermatological problems, e.g., rash, hives; ??? Red Blood Cells Other (See Comments) Antibodies-Difficult to Crossmatch DO NOT REMOVE Please contact the Blood Bank at [phone] for questions. ??? Sulfamethoxazole-Trimethoprim Other reaction(s): Respiratory problems, e.g., wheezing;Dermatological problems, e.g., rash, hives; ??? Methadone Other reaction(s): vomiting ??? Mold Extracts ??? Mushroom Flavor PHYSICAL EXAMINATION: Wt Readings from Last 3 Encounters: 10/28/22 64 kg (141 lb) 09/16/22 63.5 kg (140 lb) 06/17/22 66.2 kg (146 lb) Temp Readings from Last 3 Encounters: 10/28/22 36.3 ??C (97.3 ??F) (Temporal) 09/16/22 36.4 ??C (97.5 ??F) (Temporal) 06/17/22 36.3 ??C (97.3 ??F) (Temporal) BP Readings from Last 3 Encounters: 10/28/22 123/53 09/16/22 124/55 06/17/22 128/63 Pulse Readings from Last 3 Encounters: 10/28/22 70 09/16/22 72 06/17/22 60 Physical Exam BP 123/53 (Patient Position: Sitting) Pulse 70 Temp 36.3 ??C (97.3 ??F) (Temporal) Resp 18 Ht 165.1 cm (5' 5) Wt 64 kg (141 lb) SpO2 97% BMI 23.46 kg/m?? Physical Exam BP 123/53 (Patient Position: Sitting) Pulse 70 Temp 36.3 ??C (97.3 ??F) (Temporal) Resp 18 Ht 165.1 cm (5' 5) Wt 64 kg (141 lb) SpO2 97% BMI 23.46 kg/m?? Constitutional: Oriented to person, place, and [...] and affect. Thought content normal. Data Review: 10.14.22 CT Chest (I reviewed the imaging personally which shows no clear indication of recurrent disease.) 10.14.22 MRI Brain (I reviewed the imaging personally which shows no clear indication of recurrent disease.) 06.12.22 CT Chest 01.31.22 CT CHest 01.31.22 White blood cell count [...] T. Bili-0.2 AST-13 ALT-20 Alk phos-73 Albumin-3.5 1..22 White blood cell count 5.28 hemoglobin 11.7 platelet count 293,000 absolute neutrophil count3.31 Sodium 143 potassium 4.5 chloride 106 BUN 19 creatinine 0.9 glucose 98 calcium 9.0 magnesium 2.2 total bilirubin 0.3 AST 15 ALT 22 alk phos 55 albumin 3.6 Imaging Review: 3.08.25 3.22 MRI Brain (I reviewed the imaging personally which shows no indication of disease.) No intracranial metastatic disease 07.17.21 CT Abdomen FINDINGS: ?? Lower chest: Normal. ?? Liver: Normal size and attenuation without suspicious lesions. Unchanged small cyst in the right lobe. Bile ducts: Persistent CBD dilatation at 12 mm. Gallbladder: No calcified gallstones. Normal caliber wall. Pancreas: Normal attenuation. Mild uniform prominence of the main pancreatic duct. Spleen: Normal. Adrenals: Normal. Kidneys: Normal. Urinary Bladder: Normal. ?? Vasculature: Dense atherosclerotic calcifications in the abdominal [...] or loculated fluid collection. Abdominal wall: Intact ?? Reproductive organs: Normal. Evidence of prior tubal ligation. Osseous structures: Facet hypertrophic changes in the lower lumbar spine. No suspicious lesions. ?? IMPRESSION ?? 1. Acute uncomplicated sigmoid diverticulitis. 2. Ancillary findings as above. documented in this encounter Plan of Treatment Upcoming Encounters Date Type Department Care Team (Late st Contact Info) Description 08/30/2024 2:00 PM EST Office Visit Hematology/Oncology at [address] [phone] Mars Conley MD [facility] DR [place]AT[place] [address] Cailin Marrero ENVELOPE MACHINE OPERATOR [address] [place] [address] DR HEMATOLOGY AND ONCOLOGY [place], [place] [address] 09/07/2024 9:00 AM EST Office [place] [phone] Raven Alvarado MD [facility] [place] [address] 10/04/2024 1:15 PM EST Office [place] [phone] Feliciano Shay, [facility] [place] [address] documented as of this encounter Visit Diagnoses Diagnosis Small cell carcinoma of lung Malignant neoplasm of bronchus and lung, unspecified site documented in this encounter Care Teams Language Interpreter Relationship Specialty Start Date End Date Marco Antonio-Nini Landrum MD [address] [address] PCP - General 06/26/10 documented as of this encounter
--- OUTSIDE RECORDS SUMMARY | 2024-08-27 00:46 | XMS_ITS | Encounter Summary ---
Author Organization [facility] Address [facility] [place] [address] Care Team Providers Care Ranger Aide Name Role Phone Nini Machado MD Primary Care Provider [phone] Encounter Details Date Type Department Care Team (Late st Contact Info) Description 10/15/[address] [facility] [address] [place] [phone] Popeye Odell MD [address] [place] [address] Social History Tobacco Use Types Packs/Day Years [...] in a long-term (including now)? No 06/20/2021 Sex and Gender Information Value Date Recorded Sex Assigned at Not on file Gender Identity Not on file Sexual Orientation Not on file documented as of this encounter Plan of Treatment Upcoming Encounters Date Type Department Care Team (Late st Contact Info) Description 08/30/2024 2:00 PM EST Office Visit Hematology/Oncology at [address] [phone] Mars Conley MD [facility] [place] [address] Cailin Marrero APRN [address] [place] [address] [place] [address] 09/07/2024 9:00 AM EST Office Visit [place] [phone] Raven Alvarado MD [facility] [place] [address] 10/04/2024 1:15 PM EST Office [place] [phone] Feliciano Shay, [facility] [place] [address] Pending Results Name Type Priority Associated Diagnoses Date /Time CT Lower Extremity w Contrast Left Imaging STAT 10/15/2023 11:45 PM EDT documented as of this encounter Visit Diagnoses Not on filedocumented in this encounter Care Teams Ranger Aide Relationship Specialty Start Date End Date Marco Antonio-Nini Landrum MD [address] [place] [address] PCP - General 06/26/10 documented as of this encounter
--- OUTSIDE RECORDS SUMMARY | 2024-08-27 00:46 | XMS_ITS | Encounter Summary ---
Author Organization [facility] Address [facility] [place] [address] Care Team Providers Care Biscuit Factory Worker Name Role Phone Nini Machado MD Primary Care Provider [phone] Encounter Details Date Type Department Care Team (Latest Contact Info) Description 10/28/2022 Travel Social History Tobacco Use Types Packs/Day [...] PM EST Office Visit Hematology/Oncology at [address] [phone] Mars Conley MD [facility] DR HEMATOLOGY [place] [address] Cailin Marrero APRN [address] [place] [address] [place] [address] 09/07/2024 9:00 AM EST Office Visit [place] [address] Raven Alvarado MD [facility] [place] [address] 10/04/2024 1:15 PM EST Office [place] [address] Feliciano Shay, [facility] [place] [address] documented as of this encounter Visit Diagnoses Not on filedocumented in this encounter Care Teams Biscuit Factory Worker Relationship Specialty Start Date End Date Nini Machado MD [address] [place] [address] [address] [place] [address] PCP - General 06/26/10 documented as of this encounter
--- OUTSIDE RECORDS SUMMARY | 2024-08-27 00:46 | XMS_ITS | Encounter Summary ---
Author Organization [facility] Address [facility] [place] [address] Care Team Providers Care Financial Brokers Name Role Phone Nini Machado MD Primary Care Provider [phone] Encounter Details Date Type Department Care Team (Late st Contact Info) Description 08/28/2023 Interpretation Only [facility] [address] [place] [phone] Nini Machado MD 79 [facility] 3 [place] [address] Social History Tobacco Use Types [...] 2:00 PM EST Office Visit Hematology/Oncology at [address] [phone] Mars Conley MD [facility] DR [place] [address] Cailin Marrero APRN [address] [place] [address] [place] [address] 09/07/2024 9:00 AM EST Office [place] [phone] Raven Alvarado MD [facility] [place] [place] [address] 10/04/2024 1:15 PM EST Office [place] [phone] Feliciano Shay, [facility] [place] [address] documented as of this encounter Procedures Procedure Name Priority Date/Time Associated Diagnosis Comments US EXTREMITY NON VASCULAR LIMITED ANATOMIC SPECIFIC RIGHT Routine 08/28/2023 1:15 PM EST documented in this encounter Results * US Extremity Non Vascular Limited Right (08/28/2023 1:15 PM EST) PT CLASS O RAD ADMITDTTM [id number] RAD PT RAD INFO [id number]^Young-X u^Nini RAD EXAM DESC UEXTLMTR^US Extremity Nonvascular Limited Right^RIS RAD Anatomical Region Laterality Modality Ultrasound 08/28/2023 12:2 3 PM EST Impressions 08/28/2023 1:18 PM EST Asymmetric fatty tissue proliferation in the right anterior axilla containing morphologically benign-appearing lymph nodes, similar in appearance to the comparison CT. No suspicious masses or abnormal shadowing noted. Thank you for letting us participate in the care of this patient. ??If you are a health care provider and have any questions regarding this report, please contact the number below. ??For patients who have questions please contact the health medicare specialist that requested your imaging first. ? Narrative 08/28/2023 1:18 PM EST EXAMINATION: US Extremity Nonvascular Limited Right CLINICAL HISTORY: new tender swollen area right axilla, h/o small cell lung ca TECHNIQUE: Limited ultrasound of the right anterior insular at the site of clinical concern. Comparison to the left axilla was made. COMPARISON: CT chest dated April 21, 2023 FINDINGS: See impression. Procedure Note Antoni Ramirez MD - 08/28/2023 EXAMINATION: US Extremity Nonvascular Limited Right CLINICAL HISTORY: new tender swollen area right axilla, h/o small celllung ca TECHNIQUE: Limited ultrasound of the right anterior insular at the site of clinical concern. Comparison to the left axilla was made. COMPARISON: CT chest dated April 21, 2023 FINDINGS: See impression. IMPRESSION Asymmetric fatty tissue proliferation in the right anterior axillacontaining morphologically benign-appearing lymph nodes, similar in appearance tothe comparison CT. No suspicious masses or abnormal shadowing noted. Thank you for letting us participate in the care of this patient. If youare a health care provider and have any questions regarding this report,please contact the number below. For patients who have questions please contactthe health medicare specialist that requested your imaging first. Electronically signed by: Antoni Ramirez MD, [facility]([phone]), at 08/28/2023 1:18 PM Nini Machado MD IMG US GEN ORDERABLE S documented in this encounter Visit Diagnoses Not on filedocumented in this encounter Care Teams Financial Brokers Relationship Specialty Start Date End Date Nini Machado MD [address] [address] PCP - General 06/26/10 documented as of this encounter
--- OUTSIDE RECORDS SUMMARY | 2024-08-27 00:46 | XMS_ITS | Encounter Summary ---
Author Organization [facility] Address [facility] [place] [address] Care Team Providers Care Bailer Tenders Supervisor Name Role Phone Nini Machado MD Primary Care Provider [phone] Encounter Details Date Type Department Care Team (Late st Contact Info) Description 10/14/2022 8:30 PM EDT Ancillary Procedure Radiology Library at [facility] [place] [phone] Senthil Muller MD [facility] [place] [address] Social History Tobacco Use Types Packs/Day Years [...] 2:00 PM EST Office Visit Hematology/Oncology at [address] [phone] Mars Conley MD [facility] [place] [address] Cailin Marrero APRN [address] [place] [address] DR HEMATOLOGY [place] [address] 09/07/2024 9:00 AM EST Office [place] [phone] Raven Alvarado MD [facility] [place] [address] 10/04/2024 1:15 PM EST [place] [phone] Feliciano Shay, [facility] [place] [address] documented as of this encounter Procedures Procedure Name Priority Date/Time Associated Diagnosis Comments FILM LIBRARY STORAGE ONLY MR HEAD Routine 10/14/2022 8:25 PM EDT documented in this encounter Results * Film Library- Storage Only MR Head (10/14/2022 8:25 PM EDT) Narrative [facility] - 10/14/2022 8:25 PM EDT This exam is auto-finalizing. It's purpose is for storage only. Senthil Muller MD IMG FILM LIBRARY ORD ERABLES [place], [place] documented in this encounter Visit Diagnoses Not on filedocumented in this encounter Care Teams Bailer Tenders Supervisor Relationship Specialty Start Date End Date Marco Antonio-Nini Landrum MD [address] [address] PCP - General 06/26/10 documented as of this encounter
--- OUTSIDE RECORDS SUMMARY | 2024-08-27 00:46 | XMS_ITS | Encounter Summary ---
Author Organization [facility] Address [facility] [place] [address] Care Team Providers Care Rn Acls Name Role Phone Nini Machado MD Primary Care Provider Encounter Details Date Type Department Care Team (Latest Contact Info) Description 11/06/2023 8:00 AM EDT TH Visit (TeleHealth) [place] [address] Senthil Muller MD [facility] [place] [address] Small cell carcinoma of right lung Social [...] Progress Notes * Senthil Muller MD - 11/06/2023 8:00 AM EDT Images from the original note were not included. [facility] Medicine Radiation Oncology Radiation Oncology Follow-Up Report n Patient identifiers/demographics: Name: Stefanie Pina Date of : Primary oncologist: Radames Conley MD Primary care physician: Nini Machado MD Chief complaint/reason for visit: Limited stage small cell lung cancer n Clinical history/background: Treatment History: 09/2021 Diagnosed and treated for limited stage small cell lung cancer (carboplatin/SUPERVISOR INSTRUMENT REPAIR-16 with 45 GyBID thoracic radiation therapy) 11/2021 Prophylactic cranial RT (25Gy in 10 fractions) Interval History: Stefanie Pina is seen today for virtual follow-up utilizing eDH/Zoom. She reports doing well. Her symptoms are unchanged. These do include some mild to moderate short-term memory deficits and RIOS.Otherwise nothing new to report. She had a CT chest and brain MRI on 10/13/2023. Both scans were encouraging with no signs of recurrent or metastatic cancer. I have personally reviewed the imaging studies referenced above. Medications/Allergies: Current Outpatient Medications: lidocaine (Xylocaine) 2 % jelly, Apply topically as needed. (Patient not taking: Reported on 06/17/2022), Disp: 30 mL, Rfl: 0 UNABLE TO FIND, as needed. Thelma, Disp: , Rfl: sertraline (Zoloft) 50 mg Tablet, Take 50 mg by mouth daily., Disp: , Rfl: Ventolin HFA 90 mcg/actuation HFA Aerosol Inhaler, inhale 2 puffs USING INHALER EVERY 4 HOURS NEEDED, Disp: , Rfl: estradioL (ESTRACE) 0.01 % (0.1 mg/gram) Cream, PRN: 7days prior to pap smear, Disp: , Rfl: EPINEPHrine 0.3 mg/0.3 mL Auto-Injector, EPIPEN 2-GIOVANNA 0.3 MG/0.3ML SOAJ, Disp: , Rfl: pravastatin (Pravachol) 20 mg Tablet, take 1 tablet by mouth once daily for cholesterol, Disp: , Rfl: albuteroL (Proventil) 2.5 mg /3 mL (0.083 %) Solution for Nebulization, ALBUTEROL SULFATE (2.5 MG/3ML) 0.083% NEBU, Disp: , Rfl: montelukast (Singulair) 10 mg Tablet, daily., Disp: , Rfl: Allergies Allergen Reactions Aspirin CIS - Anaphylaxis Nitrofurantoin Monohyd/M-Cryst Other reaction(s): hands tingling, pins and needles, face swollen. Nsaids (Non-Steroidal Anti-Inflammatory Drug) Other reaction(s): Shock / Unconsciousness; Penicillins Other reaction(s): Dermatological problems, e.g., rash, hives; Says cefs are ok Red Blood Cells Other (See Comments) Antibodies-Difficult to Crossmatch DO NOT REMOVE Please contact the Blood Bank at [phone] for questions. Sulfamethoxazole-Trimethoprim Other reaction(s): Respiratory problems, e.g., wheezing;Dermatological problems, e.g., rash, hives; Methadone Other reaction(s): vomiting Mold Extracts Mushroom Flavor Physical Exam: No data found. No exam due to virtual format of the visit; her camera was not functioning well. Performance status: KPS 70-80% ECOG 1 Restricted in physically strenuous activity but ambulatory and able to carry out work of a light or sedentary nature, e.g., light house work, office work n Summary/Recommendations: Impression: Stefanie Pina is doing well. It has been 2 years since she completed her treatment (PCI portion)and ~2.5 years since she was diagnosed with limited stage small cell lung cancer and she is currently JAIRO with no significant treatment related toxicity. She is pleased with her status, as am I. Status: No evidence of active cancer (JAIRO) Plan: She will have her FU consolidated and be seen in [facility] for Q6 mo chest CT. Discontinuing CNSsurveillance at this juncture. Senthil Muller MD [facility] Radiation Oncology National Cancer [place] (NCI) Comprehensive Cancer Center [employer] Commission on Cancer (ACS [place]) Accredited Cancer Program [employer] (ACR) Accredited Radiation Oncology Program documented in this encounter Plan of Treatment Upcoming Encounters Date Type Department Care Team (Late st Contact Info) Description 08/30/2024 2:00 PM EST Office Visit Hematology/Oncology at [address] [phone] Mars Conley MD [facility] DR [place] [address] Cailin Marrero APRN [address] [place] [address] DR HEMATOLOGY AND ONCOLOGY [place], [place] [address] 09/07/2024 9:00 AM EST Office [place] [phone] Raven Alvarado MD [facility] [place] [address] 10/04/2024 1:15 PM EST Office [place] [phone] Feliciano Shay, [facility] [place] [address] documented as of this encounter Visit Diagnoses Diagnosis Small cell carcinoma of right lung documented in this encounter Care Teams Rn Acls Relationship Specialty Start Date End Date Marco Antonio-Nini Landrum MD [address] [address] PCP - General 06/26/10 documented as of this encounter
--- OUTSIDE RECORDS SUMMARY | 2024-08-27 00:46 | XMS_ITS | Encounter Summary ---
Author Organization [facility] Address [facility] [place] [address] Care Team Providers Care Cigar Bander Hand Name Role Phone Nini Machado MD Primary Care Provider [phone] Encounter Details Date Type Department Care Team (Late st Contact Info) Description 10/15/2023 Interpretation Only [facility] [address] [place] [phone] Popeye Odell MD [address] [place] [address] Social History Tobacco Use Types Packs/Day Years [...] PM EST Office Visit Hematology/Oncology at [address] [phone] Mars Conley MD [facility] DR HEMATOLOGY [place] [address] Cailin Marrero APRN [address] [place] [address] DR HEMATOLOGY [place] [address] 09/07/2024 9:00 AM EST Office [place] [phone] Raven Alvarado MD [facility] [place] [address] 10/04/2024 1:15 PM EST [place] [phone] Feliciano Shay, [facility] [place] [address] Pending Results Name Type Priority Associated Diagnoses Date /Time CT Abdomen & Pelvis w Contrast Imaging STAT 10/15/2023 11:45 PM EDT documented as of this encounter Visit Diagnoses Not on filedocumented in this encounter Care Teams Cigar Bander Hand Relationship Specialty Start Date End Date Marco Antonio-Nini Landrum MD [address] [place] [address] PCP - General 06/26/10 documented as of this encounter
--- OUTSIDE RECORDS SUMMARY | 2024-08-27 00:46 | XMS_ITS | Encounter Summary ---
Author Organization [facility] Address [facility] [place] [address] Care Team Providers Care Clinical Education Academic Coordinator Name Role Phone Nini Machado MD Primary Care Provider [phone] Encounter Details Date Type Department Care Team (Late st Contact Info) Description 09/09/2023 Telephone Hematology/Oncology at [address] [phone] Cammy Palencia Social History Tobacco Use Types Packs/Day Years [...] encounter Miscellaneous Notes * Telephone Encounter - Cammy Palencia - 09/09/2023 10:03 AM EST Called Stefanie and left VM to go over safety question for upcoming scan in October, asked that she called back when available. documented in this encounter Plan of Treatment Upcoming Encounters Date Type Department Care Team (Late st Contact Info) Description 08/30/2024 2:00 PM EST Office Visit Hematology/Oncology at [address] [phone] Mars Conley MD [facility] DR [place]EMAT[place] [address] Cailin Marrero APRN [address] [place] [address] DR [place] [address] 09/07/2024 9:00 AM EST Office Visit [place] [phone] Raven Alvarado MD [facility] [place] [address] 10/04/2024 1:15 PM EST Office [place] [address] Feliciano Shay, [facility] [place] [address] documented as of this encounter Visit Diagnoses Not on filedocumented in this encounter Care Teams Clinical Education Academic Coordinator Relationship Specialty Start Date End Date Marco Antonio-Nini Landrum MD [address] [address] PCP - General 06/26/10 documented as of this encounter
--- OUTSIDE RECORDS SUMMARY | 2024-08-27 00:46 | XMS_ITS | Encounter Summary ---
Author Organization [facility] Address [facility] [place] [address] Care Team Providers Care Chemical Process Engineer Name Role Phone Nini Machado MD Primary Care Provider [phone] Encounter Details Date Type Department Care Team (Late st Contact Info) Description 10/22/2023 Interpretation Only [facility] 90 [place] [phone] Nini Machado MD 79 [facility] 3 [place] [address] Social History Tobacco Use Types [...] place to sleep or slept in a alf (including now)? No 06/20/2021 Sex and Gender Information Value Date Recorded Sex Assigned at Not on file Gender Identity Not on file Sexual Orientation Not on file documented as of this encounter Plan of Treatment Upcoming Encounters Date Type Department Care Team (Late st Contact Info) Description 08/30/2024 2:00 PM EST Office Visit Hematology/Oncology at [address] [phone] Mars Conley MD [facility] DR HEMATOLOGY [place] [address] Cailin Marrero APRN [address] [place] [address] DR [place] [address] 09/07/2024 9:00 AM EST Office [place] [phone] Raven Alvarado MD [facility] [place] [address] 10/04/2024 1:15 PM EST Office [place] [phone] Feliciano Shay, [facility] [place] [address] documented as of this encounter Procedures Procedure Name Priority Date/Time Associated Diagnosis Comments XR HIP 2-3 VIEWS RIGHT Routine 10/22/2023 9:45 AM EDT documented in this encounter Results * XR Hip 2-3 Views Right (10/22/2023 9:45 AM EDT) PT CLASS O RAD ADMITDTTM [id number] RAD PT RAD INFO [id number]^Young-X u^Nini RAD EXAM DESC [id number]^XR Hip 2-3 Views Right^RIS RAD Anatomical Region Laterality Modality Hip Right Radiographic Mandi ging 10/22/2023 9:45 AM EDT Impressions 10/22/2023 11:08 AM EDT Degenerative changes as above. No acute fracture or dislocation. Thank you for letting us participate in the care of this patient. ??If you are a health care provider and have any questions regarding this report, please contact the number below. ??For patients who have questions please contact the health career development engineer that requested your imaging first. ? Narrative 10/22/2023 11:08 AM EDT EXAMINATION: XR Hip 2-3 Views Right CLINICAL HISTORY: RIGHT HIP PAIN TECHNIQUE: AP pelvis, AP and frog-leg views of the right hip COMPARISON: None FINDINGS: No fracture or dislocation. Maintained hip joint spaces. Adequate acetabular coverage. Acetabular rim osteophytes. Procedure Note Antoni Ramirez MD - 10/22/2023 EXAMINATION: XR Hip 2-3 Views Right CLINICAL HISTORY: RIGHT HIP PAIN TECHNIQUE: AP pelvis, AP and frog-leg views of the right hip COMPARISON: None FINDINGS: No fracture or dislocation. Maintained hip joint spaces. Adequateacetabular coverage. Acetabular rim osteophytes. IMPRESSION Degenerative changes as above. No acute fracture or dislocation. Thank you for letting us participate in the care of this patient. If youare a health care provider and have any questions regarding this report,please contact the number below. For patients who have questions please contactthe health career development engineer that requested your imaging first. Nini Machado MD IMG DX ORDERABLES documented in this encounter Visit Diagnoses Not on filedocumented in this encounter Care Teams Chemical Process Engineer Relationship Specialty Start Date End Date Nini Machado MD [address] [place] [address] PCP - General 06/26/10 documented as of this encounter
--- OUTSIDE RECORDS SUMMARY | 2024-08-27 00:46 | XMS_ITS | Encounter Summary ---
Author Organization [facility] Address [facility] [place] [address] Care Team Providers Care Road Hogger Operator Name Role Phone Nini Machado MD Primary Care Provider [phone] Reason for Referral * Diagnostic Test (Routine) - Authorized Specialty Diagnoses / Procedures Referred By Aldo sotelo Referred To Contact Radiology Diagnoses Small cell carcinoma of lung Procedures CT Chest w Contrast Cailin Marrero APRN [address] [place] [address] [place] [address] Referral ID Status Reason Start Date Expiration Date Visits Requested Visits Authorized [id number] Authorized Specialty Service Requested 10/27/2023 04/28/2025 1 1 Encounter Details Date Type Department Care Team (Late st Contact Info) Description 10/27/2023 1:30 PM EDT Office Visit Hematology/Oncology at [address] [address] Mars Conley MD [facility] DR [place] [address] Cailin Marrero APRN [address] [place] [address] DR [place] [address] Small cell carcinoma of lung Social History [...] Sign Reading Time Taken Comments Blood Pressure 144/66 10/27/2023 1:31 PM EDT Pulse 77 10/27/2023 1:31 PM EDT Temperature 36.4 ??C (97.6 ??F) 10/27/2023 1:31 PM ED T Respiratory Rate 18 10/27/2023 1:31 PM EDT Oxygen Saturation 93% 10/27/2023 1:31 PM EDT Inhaled Oxygen Concentration - - Weight 71.5 kg (157 lb 9.6 oz) 10/27/2023 1:31 P M EDT Height 165.1 cm (5' 5) 10/27/2023 1:31 PM EDT Body Mass Index 26.23 10/27/2023 1:31 PM EDT documented in this encounter Progress Notes * Cailin Marrero, RENEWABLE ENERGY CONSULTANT - 10/27/2023 1:30 PM EDT Images from the original note were not included. Hematology & Medical Oncology [address] [phone] Stefanie returns to clinic today for evaluation [...] hippocampal avoidant WBRT PCI in 12/2021. Plan: Most recent CT Chest and MRI brain reviewed with no evidence of recurrent disease. - Continue abstaining from smoking - RTC in [address] of chest. - Given two years of stability in her brain imaging, we will not plan further MRIs unless her clinical picture changes. - Continue to follow PCP closely for management of COPD # Chronic back pain - well managed with LARA crystal. No longer using opiates. # R hip pain/ arthritis - being managed by her PCP Cailin Marrero APRN 10/27/2023 Medical Oncology and Hematology [facility] CC: Dino Siegel MD Interval History/Subjective: Last seen 04.28.23 Only new issue is R hip arthritis that's pretty debilitating. Her PCP is referring her to ortho to consider an injection. Still not smoking. She does have emphysema and asthma, being managed by her PCP. Breathing is okay,she does get a bit winded on exertion, but still able to do a flight of stairs without stopping. Weight up again this visit, appetite has been too good. Has started a probiotic and this helps keep her normal. Her chronic pain is fairly well controlled [...] Appears amenable to transbronchoscopic biopsy. Referral to personal injury specialist advised. 06.06.21 CT Abdomen Pelvis 1. .No [...] versus lymph node. No new findings. 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 The immunoperoxidase stain results support the diagnosis Molecular Data: NA Treatment Course: 07.04.21 C1D1 Carboplatin/Etoposide 07.17.21 Admitted to [facility] with abdominal pain and found to have acute uncomplicated diverticulitis. Treated with abx and discharged on 1.. C2 with concurrent BID radiation ending 08.24.21 [...] REMOVE Please contact the Blood Bank at [phone] for questions. Sulfamethoxazole-Trimethoprim Other reaction(s): Respiratory problems, e.g., wheezing;Dermatological problems, e.g., rash, hives; Methadone Other reaction(s): vomiting Mold Extracts Mushroom Flavor PHYSICAL EXAMINATION: Wt Readings from Last 3 Encounters: 10/27/23 71.5 kg (157 lb 9.6 oz) 04/28/23 67.9 kg (149 lb 9.6 oz) 10/28/22 64 kg (141 lb) Temp Readings from Last 3 Encounters: 10/27/23 36.4 ??C (97.6 ??F) (Temporal) 04/28/23 36.2 ??C (97.1 ??F) (Temporal) 10/28/22 36.3 ??C (97.3 ??F) (Temporal) BP Readings from Last 3 Encounters: 10/27/23 144/66 04/28/23 122/56 10/28/22 123/53 Pulse Readings from Last 3 Encounters: 10/27/23 77 04/28/23 74 10/28/22 70 Physical Exam BP 144/66 (Patient Position: Sitting) Pulse 77 Temp 36.4 ??C (97.6 ??F) (Temporal) Resp 18 Ht 165.1 cm (5' 5) Wt 71.5 kg (157 lb 9.6 oz) SpO2 93% BMI 26.23 kg/m?? Constitutional: Oriented to person, place, and [...] and affect. Thought content normal. Data Review: 10/13/23 MRI Brain 10/13/23 CT Chest 10/13/23 Labs: WBC 8.56, H/H 14.2/45.6, plt 260, ANC 6500, Na 142, K 4.1, Cl 103, CO2 25.8, BUN 16, Creat 1.1, glucose 124, Ca 9.9, t bili 0.5, AST 23, ALT 48, alk phos 96, t protein 8.3, albumin 4.0 04/21/23 MRI Brain 04/21/23 CT Chest 04/21/23 Labs: WBC 6.04, H/H 13.5/42.7, plt 259, ANC 4370, Na 138, K 3.8, Cl 100, CO2 26.8, BUN 16, Creat 0.9, glucose 110, Ca 9.9, t bili 0.4, AST 16, ALT 25, alk phos 87, t protein 8.2, Albumin 3.[address] Chest 3.. MRI Brain 11.9. CT Chest 6. CT CHest 6.. White blood cell count 5.24 hemoglobin 12.9 [...] 2:00 PM EST Office Visit Hematology/Oncology at [address] [phone] Mars Conley MD [facility] DR [place] [address] Cailin Marrero APRN [address] [place] [address] DR [place] [address] 09/07/2024 9:00 AM EST Office Visit [place] [address] Raven Alvarado MD [facility] [place] [address] 10/04/2024 1:15 PM EST Office [place] [address] Feliciano Shay, [facility] [address] Scheduled Orders Name Type Priority Associated Diagnoses Orde r Schedule CT Chest w Contrast Imaging Routine Small cell carcinoma of lung Expected: 04/28/2024 (Approximate), Expires: 10/26/2024 CBC (with Diff) Lab Routine Small cell carcinoma of lung Expected: 04/28/2024, Expires: 10/26/2024 Comprehensive metabolic panel (non-fasting) Lab Routine Small cell carcinoma of lung Expected: 04/28/2024, Expires: 10/26/2024 documented as of this encounter Visit Diagnoses Diagnosis Small cell carcinoma of lung Malignant neoplasm of bronchus and lung, unspecified site documented in this encounter Care Teams Road Hogger Operator Relationship Specialty Start Date End Date Marco Antonio-Nini Landrum MD [address] [place] [address] 3 [place] [address] PCP - General 06/26/10 documented as of this encounter
--- OUTSIDE RECORDS SUMMARY | 2024-08-27 00:46 | XMS_ITS | Encounter Summary ---
Author Organization [facility] Address [facility] [address] Care Team Providers Care Plane Tableman Name Role Phone Nini Machado MD Primary Care Provider [phone] Encounter Details Date Type Department Care Team (Late st Contact Info) Description 10/16/2023 Interpretation Only [facility] [address] [place] [phone] Popeye Odell MD [address] [place] [address] Social History Tobacco Use Types Packs/Day Years [...] 2:00 PM EST Office Visit Hematology/Oncology at [address] [phone] Mars Conley MD [facility] DR HEMATOLOGY [place] [address] Cailin Marrero APRN [address] [place] [address] DR [place] [address] 09/07/2024 9:00 AM EST Office Visit [place] [phone] Raven Alvarado MD [facility] [place] [address] 10/04/2024 1:15 PM EST Office [place] [phone] Feliciano Shay, [facility] [place] [address] documented as of this encounter Procedures Procedure Name Priority Date/Time Associated Diagnosis Comments CT LOWER EXTREMITY W CONTRAST LEFT STAT 10/16/2023 1:35 AM EDT documented in this encounter Results * CT Lower Extremity w Contrast Left (10/16/2023 1:35 AM EDT) [facility] Signature PT CLASS E RAD ADMITDTTM [id number] RAD PT RAD INFO [id number]^Hanissi an^Popeye RAD EXAM DESC CTLOEXWL^CT Lower Extremity w/ Contrast Left^RIS RAD Anatomical Region Laterality Modality Hip, Leg, Knee, Thigh, Ankle, Foot Left Computed Tomography 10/16/2023 1:34 AM EDT Impressions 10/16/2023 4:06 AM EDT 1. ??No intramuscular or subcutaneous collection or abscess. 2. ??No acute osseous findings. 3. ??No vascular abnormality. Examination of the arterial system is limited by timing of the bolus which is primarily venous. Preliminary report signed by: Leonid Kim MD at 10/16/2023 3:38 AM I have personally reviewed the image(s) and the resident's interpretation and agree with the findings, Marek Jimenez MD at 10/16/2023 4:06 AM Thank you for letting us participate in the care of this patient. ??If you are a health care provider and have any questions regarding this report, please contact the number below. ??For patients who have questions please contact the health rn care manager that requested your imaging first. ? Narrative 10/16/2023 4:06 AM EDT EXAMINATION: CT Lower Extremity w/ Contrast Left CLINICAL HISTORY: L leg pain, nl pulses, nl color, nl skin, no swelling TECHNIQUE: CT of the left lower extremity after the administration of intravenous contrast, 99 cc of Omnipaque 350 was administered. Qqbco-vt-tshc extends from the hip to the forefoot. COMPARISON: CT abdomen and pelvis 10/16/2023 FINDINGS: There is diffuse osseous demineralization. There is motion artifact involving the distal tibial and fibular diaphysis, for which examination was repeated. No acute osseous findings. No suspicious osseous lesions. Normal alignment at the left hip and knee. No hip joint effusions. No knee joint effusions. Opacification of the dependent bladder by excreted contrast from prior CT. There is sigmoid colon diverticulosis. Symmetric normal muscle bulk. No intramuscular or subcutaneous collection. No soft tissue gas. Unremarkable appearance of the arterial and venous vasculature. No findings to suggest DVT. Limited assessment of the veins below the knee secondary to timing of the contrast bolus. Procedure Note Marek Jimenez MD - 10/16/2023 EXAMINATION: CT Lower Extremity w/ Contrast Left CLINICAL HISTORY: L leg pain, nl pulses, nl color, nl skin, no swelling TECHNIQUE: CT of the left lower extremity after the administration of intravenouscontrast, 99 cc of Omnipaque 350 was administered. Vzgrx-dy-ibvc extends from thehip to the forefoot. COMPARISON: CT abdomen and pelvis 10/16/2023 FINDINGS: There is diffuse osseous demineralization. There is motion artifactinvolving the distal tibial and fibular diaphysis, for which examination wasrepeated. No acute osseous findings. No suspicious osseous lesions. Normal alignment atthe left hip and knee. No hip joint effusions. No knee joint effusions. Opacification of thedependent bladder by excreted contrast from prior CT. There is sigmoid colon diverticulosis. Symmetric normal muscle bulk. No intramuscular or subcutaneous collection.No soft tissue gas. Unremarkable appearance of the arterial and venous vasculature. Nofindings to suggest DVT. Limited assessment of the veins below the knee secondary totiming of the contrast bolus. IMPRESSION 1. No intramuscular or subcutaneous collection or abscess. 2. No acute osseous findings. 3. No vascular abnormality. Examination of the arterial system is limitedby timing of the bolus which is primarily venous. Preliminary report signed by: Leonid Kim MD at 10/16/2023 3:38 AM I have personally reviewed the image(s) and the resident's interpretationand agree with the findings, Marek Jimenez MD at 10/16/2023 4:06 AM Thank you for letting us participate in the care of this patient. If youare a health care provider and have any questions regarding this report,please contact the number below. For patients who have questions please contactthe health rn care manager that requested your imaging first. Popeye Odell MD IMG CT ORDERABLES documented in this encounter Visit Diagnoses Not on filedocumented in this encounter Care Teams Plane Tableman Relationship Specialty Start Date End Date Marco Antonio-Nini Landrum MD [address] [place] [address] PCP - General 06/26/10 documented as of this encounter
--- OUTSIDE RECORDS SUMMARY | 2024-08-27 00:46 | XMS_ITS | Encounter Summary ---
Author Organization [facility] Address [facility] [place] [address] Care Team Providers Care Dining Car Steward Name Role Phone Nini Machado MD Primary Care Provider [phone] Encounter Details Date Type Department Care Team (Late st Contact Info) Description 04/21/2023 10:25 PM EDT Ancillary Procedure Radiology Library at [facility] [place] [phone] Mars Conley MD [facility] [place] [address] Social History Tobacco Use Types Packs/Day Years [...] in a residential (including now)? No 06/20/2021 Sex and Gender Information Value Date Recorded Sex Assigned at Not on file Gender Identity Not on file Sexual Orientation Not on file documented as of this encounter Plan of Treatment Upcoming Encounters Date Type Department Care Team (Late st Contact Info) Description 08/30/2024 2:00 PM EST Office Visit Hematology/Oncology at [address] [phone] Mars Conley MD [facility] DR HEMATOLOGY [place] [address] Cailin Marrero APRN [address] [place] [address] DR HEMATOLOGY [place] [address] 09/07/2024 9:00 AM EST Office [place] [phone] Raven Alvarado MD [facility] [place] [address] 10/04/2024 1:15 PM EST [place] [phone] Feliciano Shay, [facility] [place] [address] documented as of this encounter Procedures Procedure Name Priority Date/Time Associated Diagnosis Comments FILM LIBRARY STORAGE ONLY MR HEAD Routine 04/21/2023 10:24 PM EDT documented in this encounter Results * Film Library- Storage Only MR Head (04/21/2023 10:24 PM EDT) Narrative [facility] - 04/21/2023 10:24 PM EDT This exam is auto-finalizing. It's purpose is for storage only. Mars Conley MD IMG FILM LIBRARY ORD ERABLES [place], [place] documented in this encounter Visit Diagnoses Not on filedocumented in this encounter Care Teams Dining Car Steward Relationship Specialty Start Date End Date Nini Machado MD [address] [address] PCP - General 06/26/10 documented as of this encounter
--- OUTSIDE RECORDS SUMMARY | 2024-08-27 00:46 | XMS_ITS | Encounter Summary ---
Author Organization [facility] Address [facility] [place] [address] Care Team Providers Care Personal Lines Account Executive Name Role Phone Nini Machado MD Primary Care Provider [phone] Encounter Details Date Type Department Care Team (Late st Contact Info) Description 06/27/2023 Interpretation Only [address] [phone] Leisa Veliz MD [address] [place] [address] Social History Tobacco Use Types Packs/Day Years [...] 2:00 PM EST Office Visit Hematology/Oncology at [address] [phone] Mars Conley MD [facility] DR [place] [address] Cailin Marrero APRN [address] [place] [address] [place] [address] 09/07/2024 9:00 AM EST Office Visit [place] [phone] Raven Alvarado MD [facility] [place] [address] 10/04/2024 1:15 PM EST Office [place] [address] Feliciano Shay, [facility] [place] [address] documented as of this encounter Procedures Procedure Name Priority Date/Time Associated Diagnosis Comments XR CHEST PA AND LATERAL STAT 06/27/2023 12:46 PM EST documented in this encounter Results * XR Chest PA & Lateral (Generic) (06/27/2023 12:46 PM EST) PT CLASS RAD ADMITDTTM RAD PT RAD INFO [id number]^C aragher^Leisa RAD EXAM DESC XCXR2^XR Chest 2 Views^RIS RAD Anatomical Region Laterality Modality Chest N/A Radiographic Mandi ging 06/27/2023 12:4 6 PM EST Impressions 06/27/2023 1:26 PM EST No acute lung findings. Normal chest radiograph does not allow to exclude recurrent malignancy, especially considering the original site of cancer. I have personally reviewed the image(s) and the resident's interpretation and agree with the findings, Fouzia Oliva MD at 06/27/2023 1:26 PM Thank you for letting us participate in the care of this patient. ??If you are a health care provider and have any questions regarding this report, please contact the number below. ??For patients who have questions please contact the health child day care center worker that requested your imaging first. ? Electronically signed by: Fouzia Oliva MD, [facility] ([phone]), at 06/27/2023 1:26 PM Narrative 06/27/2023 1:26 PM EST EXAMINATION: XR Chest 2 Views CLINICAL HISTORY: cough, hx lung CA TECHNIQUE: PA and lateral chest radiograph COMPARISON: PA and lateral chest radiograph 07/17/2020, CT chest with contrast 04/21/2023 FINDINGS: Normal cardiomediastinal silhouette and vascular markings. Lungs are clear. No pneumothorax or pleural effusion. Mild thoracic spine degenerative disc disease. Unremarkable upper abdomen. Procedure Note Fouzia Cassidy MD - 06/27/2023 EXAMINATION: XR Chest 2 Views CLINICAL HISTORY: cough, hx lung CA TECHNIQUE: PA and lateral chest radiograph COMPARISON: PA and lateral chest radiograph 07/17/2020, CT chest with contrast04/21/2023 FINDINGS: Normal cardiomediastinal silhouette and vascular markings. Lungs are clear. No pneumothorax or pleural effusion. Mild thoracic spine degenerative disc disease. Unremarkable upperabdomen. IMPRESSION No acute lung findings. Normal chest radiograph does not allow to exclude recurrent malignancy, especially considering the original site of cancer. I have personally reviewed the image(s) and the resident's interpretationand agree with the findings, Fouzia Oliva MD at 06/27/2023 1:26PM Thank you for letting us participate in the care of this patient. If youare a health care provider and have any questions regarding this report,please contact the number below. For patients who have questions please contactthe health child day care center worker that requested your imaging first. Leisa Veliz MD IMG DX ORDERABLES documented in this encounter Visit Diagnoses Not on filedocumented in this encounter Care Teams Personal Lines Account Executive Relationship Specialty Start Date End Date Marco Antonio-Nini Landrum MD [address] [address] PCP - General 06/26/10 documented as of this encounter
--- OUTSIDE RECORDS SUMMARY | 2024-08-27 00:46 | XMS_ITS | Encounter Summary ---
Author Organization [facility] Address [facility] [place] [address] Care Team Providers Care Bell Attendant Name Role Phone Nini Machado MD Primary Care Provider [phone] Encounter Details Date Type Department Care Team (Latest Contact Info) Description 12/25/2023 11:05 AM EDT - 12/25/2023 2:19 PM EDT Hospital Encounter [place] [phone] June Ryan MD [facility] [place] [address] Discharge Disposition: Home Social History Tobacco Use [...] in a custodial (including now)? No 06/20/2021 DH IPV Inpatient [...] Sign Reading Time Taken Comments Blood Pressure 109/70 12/25/2023 2:09 PM EDT Pulse 83 12/25/2023 2:09 PM EDT Temperature 35.9 ??C (96.6 ??F) 12/25/2023 2:09 PM ED T Respiratory Rate 18 12/25/2023 2:09 PM EDT Oxygen Saturation 94% 12/25/2023 2:09 PM EDT Inhaled Oxygen Concentration - - [...] surgery June Ryan MD Section of ophthalmology [facility] [phone] - Keep your eye patched, shielded, clean and dry overnight. The patch will be removed during your follow up visit with Dr. Ryan tomorrow. - The surgery center nurses should confirm time of your follow up appointment for tomorrow with . This appointment will be at the Eye Clinic in the main building at [facility]. - Mild discomfort is normal, but if you have any severe eye pain or bleeding call [phone] and ask to speak to the eye doctor composite bond worker. - Call your Primary Care Doctor or [...] Ryan MD - 12/25/2023 1:[address] [facility] Operative Note Patient Name: Stefanie Pina : [id number] MR#: [id number] Case Date: 12/25/2023 Surgeon: Surgeons and Role: [...] forceps was used to create the capsulorhexis. [place] Dissection and delineation were performed. The phacoemulsification [...] PM EST Office Visit Hematology/Oncology at [address] [phone] Mars Conley MD [facility] DR [place] [address] Cailin Marrero APRN [address] [place] [address] DR HEMATOLOGY AND ONCOLOGY [place], [place] [id number] 09/07/2024 9:00 AM EST Office [place] [phone] Raven Alvarado MD [facility] [place] [address] 10/04/2024 1:15 PM EST Office [place] [address] Feliciano Shay, [facility] [place] [address] documented as of this encounter Procedures Procedure Name Priority Date/Time Associated Diagnosis Comments Extracapsular Cataract Rmvl Insertion Io Lens Prosth W/O Ecp (17362) 12/25/2023 1:32 PM EDT Cataract CATARACT EXTRACTION, EXTRACAPSULAR, W/ LENS INSERTION Routine 12/25/2023 9:34 AM EDT documented in this encounter Visit Diagnoses Not on filedocumented in this encounter Administered Medications Inactive Administered Medications - up to 3 most recent administrations Medication Order MAR Action Action Date Dose Rate Site moxifloxacin (Vigamox) 0.5 % ophthalmic solution 1 drop 1 drop, Right Eye, EVERY 5 MIN, 3 doses, First dose on Parisa 12/25/23 at 1230, Last dose on Parisa 5/23/24 [...] MIN, 3 doses, First dose on Parisa 12/25/23 at 1230, Last dose on Parisa 12/25/23 at 1240, 1 drop to the operative [...] MIN, 3 doses, First dose on Parisa 12/25/23 at 1230, Last dose on Parisa 12/25/23 [...] MIN, 3 doses, First dose on Parisa 12/25/23 at 1230, Last dose on Parisa 5/23/24 [...] MIN, 3 doses, First dose on Parisa 5/24 at 1230, Last dose on Parisa 24 [...] 24 at 1230, Last dose on Parisa 24 at 1250, Day of Surgery (Day of Procedure), Routine 1215 (Given - Provid er: Sondra Betancourt RN)1228 (Given - Provider: Sondra Betancourt RN)1234 (Given - Provider: Sondra Betancourt RN) PRN Medication Order 12/23/2023 12/24/2023 12/25/2023 acetaminophen (Tylenol) tablet 650 mg 650 mg, Oral, ONCE PRN, 1 dose, Starting on Parisa 12/25/23 at 1419, Until Parisa 12/25/23 at 1622, Pain, Maximum dose of acetaminophen is 4,000 mg from all sources in 24 hours. When ordered for pain, acetaminophen should be given even when other ordered pain medications are indicated., Recovery (Recovery-Hospital Unit), Routine fentaNYL (pf) (50 mcg/mL) multi-dose injection 25 mcg (CANCELED) 25 mcg, Intravenous, EVERY 5 MIN PRN, Starting on Parisa 5/24 at 1200, Until Parisa 5/24 at 1419, Pain, For use in the [...] EVERY 5 MIN PRN, Starting on Parisa 524 at 1200, Until Parisa 5/24 at 1419, Anxiety, For use in the [...] RN) documented in this encounter Care Teams Bell Attendant Relationship Specialty Start Date End Date Marco Antonio-Nini Landrum MD [address] [address] PCP - General 06/26/10 documented as of this encounter
--- OUTSIDE RECORDS SUMMARY | 2024-08-27 00:46 | XMS_ITS | Encounter Summary ---
Author Organization [facility] Address [facility] [place] [address] Care Team Providers Care Head Porter Baggage Name Role Phone Nini Machado MD Primary Care Provider [phone] Encounter Details Date Type Department Care Team (Latest Contact Info) Description 05/08/2023 8:00 AM EDT TH Visit (TeleHealth) Radiation Oncology at [address] [phone] Senthil Muller MD [facility] [place] [address] Small cell carcinoma of right lung Social [...] place to sleep or slept in a longterm (including now)? No 06/20/2021 Sex and Gender Information Value Date Recorded Sex Assigned at Not on file Gender Identity Not on file Sexual Orientation Not on file documented as of this encounter Progress Notes * Senthil Muller MD - 05/08/2023 8:00 AM EDT Images from the original note were not included. [facility] Medicine Radiation Oncology Radiation Oncology Follow-Up Report n Patient identifiers/demographics: Name: Stefanie Pina Date of : Primary oncologist: Radames Conley MD Primary care physician: Nini Machado MD Chief complaint/reason for visit: Limited stage small cell lung cancer n Clinical history/background: Treatment History: 09/2021 Diagnosed and treated for limited stage small cell lung cancer (carboplatin/LIFTS AND CRANES INSPECTOR-16 with 45 GyBID thoracic radiation therapy) 11/2021 Prophylactic cranial RT (25Gy in 10 fractions) Interval History: Stefanie Pina is seen today for virtual follow-up utilizing eDH/Zoom. She reports doing well. Over time she has noticed some increased RIOS. She does try to get some exercise: walking outside and at the stores when she is shopping. Regarding her memory, she notes some short-term memory issues particularly remembering multiple list items. She says that this is not causing a hardship for her. She has learned to adapt. She had a CT chest and brain MRI on 04/21/2023. Both scans were encouraging with no signs [...] REMOVE Please contact the Blood Bank at [phone] for questions. Sulfamethoxazole-Trimethoprim Other reaction(s): Respiratory problems, [...] Pina is doing well. It has been 1.5 years since she completed her treatment (PCI portion) and ~2 years since she was diagnosed with limited stage small cell lung cancer and she is currently JAIRO with no significant treatment related toxicity. She is pleased with her status, as am I. Status: No evidence of active cancer (JAIRO) Plan: Next FU scheduled ~ 6 months. I will FU with her again at that time then we can consolidate follow-up if she chooses. Senthil Muller MD [facility] Cancer [place] Radiation Oncology National Cancer [place] ([facility]) Comprehensive Cancer Center [employer] Commission on Cancer (ACS Kendra) Accredited Cancer Program [employer] (ACR) Accredited Radiation Oncology Program documented in this encounter Plan of Treatment Upcoming Encounters Date Type Department Care Team (Late st Contact Info) Description 08/30/2024 2:00 PM EST Office Visit Hematology/Oncology at [address] [phone] Mars Conley MD [facility] DR HEMAT[place] [address] Cailin Marrero APRN [address] [place] [address] DR HEMATOLOGY [place] [address] 09/07/2024 9:00 AM EST Office [place] [phone] Raven Alvarado MD [facility] [place] [address] 10/04/2024 1:15 PM EST [place] [phone] Feliciano Shay, [facility] [address] documented as of this encounter Visit Diagnoses Diagnosis Small cell carcinoma of right lung documented in this encounter Care Teams Head Porter Baggage Relationship Specialty Start Date End Date Marco Antonio-Nini Landrum MD [address] [address] PCP - General 06/26/10 documented as of this encounter
--- OUTSIDE RECORDS SUMMARY | 2024-08-27 00:47 | XMS_ITS | Encounter Summary ---
Author Organization [facility] Address [facility] [place] [address] Care Team Providers Care Clinical Scientist Name Role Phone Nini Machado MD Primary Care Provider [phone] Encounter Details Date Type Department Care Team (Latest Contact Info) Description 09/16/2022 12:45 PM EST - 09/16/2022 2:42 PM EST Hospital En[place] [address] Tonny Hurtado MD [facility] [place] [address] Discharge Disposition: Home Social History Tobacco Use [...] occurs, please contact your Doctor. Please call [phone] before 8pm Mon-Fri with problems, questions or concerns. If you call after 8pm or on weekends, call the Hospital at [phone] and ask to speak to the Produce Team Lead veterinary receptionist and the tufter operator will contact that person for you. When should you call for help? Call [phone] anytime you think you may need emergency [...] any problems. Where can you learn more? [facility] View your After Visit Summary and more online at [email or web address] If you would like to provide feedback about your hospital experience, please call the Office of Patient and Family Relations at . If you have received this After Visit Summary in error, please immediately return it in person to the department, or notify the [facility] Privacy Office by calling toll free at between the hours of 8AM and 5PM to arrange for our retrieval of the documents at no cost to you. Content Version: 12.2 ?? [phone] [employer]. Care instructions adapted under license by [facility]. If you have questions about a medical condition or this instruction, always ask your healthcare professional. [employer] disclaims any warranty or liability for your [...] mixed E78.2 ??? Leg cramps R25.2 ??? penitentiary (current) use of opiate analgesic Z79.891 ??? [...] PM EST Office Visit Hematology/Oncology at [address] [phone] Mars Conley MD [facility] DR [place] [address] Cailin Marrero APRN [address] [place] [address] DR [place] [address] 09/07/2024 9:00 AM EST Office [place] [phone] Raven Alvarado MD [facility] [place] [address] 10/04/2024 1:15 PM EST [place] [phone] Feliciano Shay, [facility] [place] [address] documented as of this encounter Procedures Procedure Name Priority Date/Time Associated Diagnosis Comments SPECIMEN TO PATHOLOGY Routine 09/16/2022 2:08 PM EST SPECIMEN TO PATHOLOGY Routine 09/16/2022 2:08 PM EST SURGICAL PATHOLOGY REPORT Routine 09/16/2022 2:00 PM EST Colonoscopy, Biopsy ([id number]) 09/16/2022 1:39 PM EST High grade dysplasia in colonic adenoma COLONOSCOPY Routine 09/16/2022 1:32 PM EST documented in this encounter Results * Specimen to Pathology (09/16/2022 2:08 PM EST) AP Specimen 09/16/2022 2:08 PM EST 09/16/2022 2:08 PM EST Narrative [facility] - 09/16/2022 2:08 PM EST Specimen requisition ordered. ??Separate Pathology report to follow Tonny Hurtado MD PATHOLOGY/CYTOLOGY O BRANDIN Performing Organization Address [facility] Co de Phone Number [place] [phone] * Specimen to Pathology (09/16/2022 2:08 PM EST) AP Specimen 09/16/2022 2:08 PM EST 09/16/2022 2:08 PM EST Narrative [facility] - 09/16/2022 2:08 PM EST Specimen requisition ordered. ??Separate Pathology report to follow Tonny Hurtado MD PATHOLOGY/CYTOLOGY O [place] Performing Organization Address [facility] de Phone Number [place] [phone] * Surgical Pathology Report (09/16/2022 2:00 PM EST) Final Diagnosis [id number] ? Location: 4T; EA10; A The signing pathologist has (i) examined the relevant preparation(s) for the specimen(s) and (ii) rendered or confirmed the diagnosis(es). . ?Surgical Pathology DIAGNOSIS A - Scar tissue at ascending colon polypectomy site, excision (Multiple): - ??Hyperplastic polyp. B - Polyp < 5 mm descending colon, excision: - ??Tubular adenoma. CR-PX Electronically signed by: ?Alex Parham MD Verified: ??09/24/2022 16:33 ??Pathologist Performed at: ??-[facility] Dept. of Pathology, [place] [address] Silk Screen Printer Helper: Umu Bassett MD, FCAP, ??CLIA Certificate: [id number] SPECIMEN(S) SUBMITTED A - Scar tissue at [...] labeled B1. ??jnr 09/24/2022 4:33 PM EST [facility] GI Biopsy 09/16/2022 2:00 PM EST 09/16/2022 2:00 PM EST GI Biopsy 09/16/2022 2:00 PM EST 09/16/2022 2:00 PM EST Tonny Hurtado MD PATHOLOGY/CYTOLOGY O RDERABLES [facility] [place] [address] [facility] [place] [id number] * COLONOSCOPY (09/16/2022 1:32 PM EST) COLONOSCOPY [facility] Endoscopy Procedure Date: 09/16/2022 1:32 PM ? Patient Name: Stefanie Pina ? Date of : 1955 ? Age: 66 ? Order #: [id number] ? Instrument Name: [id number] ? Procedure: ? Colonoscopy Indications: ? Pt [...] preparation was evaluated ? using the BBPS ([place] Bowel ? Preparation Scale) with scores of: [...] PROVATION documented in this encounter Visit Diagnoses Not [...] CRNA) documented in this encounter Care Teams Clinical Scientist Relationship Specialty Start Date End Date Marco Antonio-Nini Landrum MD [address] [place] [address] PCP - General 06/26/10 documented as of this encounter
--- OUTSIDE RECORDS SUMMARY | 2024-08-27 00:47 | XMS_ITS | Encounter Summary ---
Author Organization [facility] [place] [address] Care Team Providers Care Communications Associate Name Role Phone Nini Machado MD Primary Care Provider [phone] Encounter Details Date Type Department Care Team (Late st Contact Info) Description 01/16/2022 Orders Only Hematology [place] [address] Minna Rascon, DOOR GLASS INSTALLER Social History Tobacco Use Types Packs/Day Years [...] PM EST Office Visit Hematology/Oncology at [address] [phone] [facility] DR [place] [address] Cailin Marrero APRN [address] [place] [address] DR HEMATOLOGY AND ONCOLOGY [place], [place] [address] 09/07/2024 9:00 AM EST Office [place] [phone] [facility] [place] [address] 10/04/2024 1:15 PM EST Office [place] [phone] Feliciano Shay, [facility] [place] [address] documented as of this encounter Visit Diagnoses Not on filedocumented in this encounter Care Teams Communications Associate Relationship Specialty Start Date End Date Nini Machado, MD [address] [place] [phone] PCP - General 06/26/10 documented as of this encounter
--- OUTSIDE RECORDS SUMMARY | 2024-08-27 00:47 | XMS_ITS | Encounter Summary ---
Author Organization [facility] Address [facility] [place] [address] Care Team Providers Care Pharmacy Cashier Name Role Phone Nini Machado MD Primary Care Provider Encounter Details Date Type Department Care Team (Late st Contact Info) Description 07/05/2022 Telephone [place] [phone] Curt Montano Social History Tobacco Use Types Packs/Day Years [...] in a assisted (including now)? No 06/20/2021 Sex and Gender Information Value Date Recorded Sex Assigned at Not on file Gender Identity Not on file Sexual Orientation Not on file documented as of this encounter Miscellaneous Notes * Telephone Encounter - Dusty Curt N - 07/05/2022 10:14 AM EST Stefanie Pina [id number] Diagnosis/Indication: Lasrge SSA with HGD removed 06/2021 - schedule for December or January please 2021 Please review patient chart to confirm if previous Endoscopy procedure was performed within system. If yes, take note of Anesthesia type used. If previous procedure found, and with MAC/propofol Anesthesia support was used, schedule this procedure with Anesthesia and skip the Anesthesia portion of questions. If not performed within system, not performed at all, or performed with IVCS, ask Anesthesia questions. SCHEDULING QUESTIONS (ask all patient these questions) 1. Have you ever had a/an Colonoscopy before? Yes: Date 06/2021 If yes, did you have any problems with the procedure (such as waking up during the procedure, pain or difficulties afterwards, etc.)? No What type of sedation was used: General Anesthesia 2. Do you take any blood thinners or have you been diagnosed with a bleeding disorder that increases your risk of bleeding with procedures? No 3. Do you have a Pacemaker or Defibrillator device? If yes, send pool message to Cardiology with patient information and date or procedure. No 4. Are you a diabetic? If yes, call PCP/managing provider to discuss use of prep and any questions or concerns related to. No 5. Do you take any iron supplements or vitamins that contain iron? No 6. Do you have a preference regarding the gender of your provider? No ANESTHESIA QUESTIONS (YES to any question, please book with Anesthesia support) 7. Have you ever been diagnosed with any of the following: Pulmonary Hypertension, Atrial Fibrillation (A-Fib) and/or Congential Heart Disease? No 8. Have you ever had an allergic or adverse reaction to Fentanyl or Versed? No 9. Have you had a problem with sedation or anesthesia? (Waking up during procedure, extreme confusion after, etc.) No 10. Do you have a diagnosis of Obstructive Sleep Apnea? No 11. Do you use a c-pap machine? Neither 12. Do you use an oxygen tank at home? No 13. Do you use a rescue inhaler more than twice per day? (COPD, severe asthma) No 14. Do you experience breathing problems when you lay flat for a period of time? No 15. Do you take prescription narcotic pain medications, including suboxone or methodone? No SCHEDULING CONFIRMATIONS: Please note any and all parts of your conversation with the patient here. 16. We offer all new patients an opportunity to have an appointment with one of our associate care providers to learn more about your upcoming procedure, ask questions and get answers. These appointments are offered via telehealth. Would you be interested in scheduling this appointment? (Only ask if NEW referral patient; skip this question if [facility] GI provider ordered the procedure.) No 17. Is there any other information or concerns you would like to us to share with your care team inrelation to your upcoming scheduled procedure? No 18. You must have a responsible republican who will drive you to your procedure, stay on campus for the entire duration of your procedure, and drive you home from your procedure. Who will likely be your cross country truck driver for the procedure? *Please Verify the height and weight, and adjust if height and/or weight have changed* Estimated body mass index is 24.3 kg/m?? as calculated from the following: Height as of 06/17/22: 165.1 cm (5' 5). Weight as of 06/18/22: 66.2 kg (146 lb). *Delete if not needed* Height: 5'5 Weight: 146 BMI: 24.3 Age:66 y.o. documented in this encounter Plan of Treatment Upcoming Encounters Date Type Department Care Team (Late st Contact Info) Description 08/30/2024 2:00 PM EST Office Visit Hematology/Oncology at [address] [phone] Mars Conley MD [facility] DR HEMATOLOGY [place] [address] Cailin Marrero APRN [address] [place] [address] DR [place]EMAT[place]Y [place] [address] 09/07/2024 9:00 AM EST Office Visit [place] [phone] Raven Alvarado MD [facility] [place] [address] 10/04/2024 1:15 PM EST Office Visit Neurology at [place] [phone] Feliciano Shay, [facility] [place] [address] documented as of this encounter Visit Diagnoses Not on filedocumented in this encounter Care Teams Pharmacy Cashier Relationship Specialty Start Date End Date Marco Antonio-Nini Landrum MD [address] [address] PCP - General 06/26/10 documented as of this encounter
--- OUTSIDE RECORDS SUMMARY | 2024-08-27 00:47 | XMS_ITS | Encounter Summary ---
Author Organization [facility] Address [facility] [place] [address] Care Team Providers Care Core Oven Tender Name Role Phone Nini Machado MD Primary Care Provider [phone] Encounter Details Date Type Department Care Team (Late st Contact Info) Description 12/13/2021 Notes Only [place] [address] Senthil Muller MD [facility] [place] [address] Social History Tobacco Use Types Packs/Day Years [...] Progress Notes * Senthil Muller MD - 12/13/2021 9:22 AM EDT Images from the original note were not included. [facility] Medicine Radiation Oncology Radiation Oncology: Treatment Summary Patient Identity: Patient name: Stefanie Pina Date of : 1955 Diagnosis: Limited stage small cell lung cancer Cancer staging: Cancer Staging Small cell carcinoma of lung Staging form: Lung, AJCC 8th Edition - Clinical stage from 06/20/2021: cT0, cN2, cM0 - Signed by Juan Fitzpatrick MD on 06/20/2021 Oncologic history: Stefanie Pina is a 65 y.o. female with limited stage small cell lung cancer who completed initial treatment on 09/26/2021. Treatment Plan: Treatment intent: Curative Site treated: Whole brain Technique: VMAT/hippocampal avoidance IMRT Concurrent chemotherapy: no Radiation Therapy Schedule: once daily Technical details: Course: C2 PCI Treatment Site: Plan [id number] Ref. ID: PCI HIPPO Rx Energy: 10X Dose/Fx (cGy): 250 #Fx: 10 / 10 Dose Correction (cGy): 0 Total Dose (cGy): 2,500 Start Date: 11/19/2021 End Date: 11/30/2021 Elapsed Days: 11 Plan images: Clinical Course: Treatment tolerance: She tolerated treatment well. Treatment breaks: No Treatment response: Unknown. Pain management plan: n/a Follow up plan: ??? Follow up in 3 months with brain MRI and chest CT w contrast (pending the end of the contrast shortage) prior to follow up visit. ??? she was asked to call the clinic with questions/concerns in the interim. Senthil Muller MD 12/13/2021 ??? National Cancer [place] (NCI) Comprehensive Cancer Center ??? [employer] Commission on Cancer (ACS Kendra) Accredited Cancer Program ??? [employer] (ACR) Accredited Radiation Oncology Program ??? documented in this encounter Plan of Treatment Upcoming Encounters Date Type Department Care Team (Late st Contact Info) Description 08/30/2024 2:00 PM EST Office Visit Hematology/Oncology at [address] [phone] Mars Conley MD [facility] DR HEMATOLOGY [place] [address] Cailin Marrero [address] [place]EMATOLOGY [place] [address] 09/07/2024 9:00 AM EST Office [place] [phone] Raven Alvarado MD [facility] [place] [address] 10/04/2024 1:15 PM EST Office [place] [phone] Feliciano Shay, DO [facility] [place] [address] documented as of this encounter Visit Diagnoses Diagnosis Small cell carcinoma of lung Malignant neoplasm of bronchus and lung, unspecified site documented in this encounter Care Teams Core Oven Tender Relationship Specialty Start Date End Date Marco Antonio-Nini Landrum MD [address] [address] PCP - General 06/26/10 documented as of this encounter
--- OUTSIDE RECORDS SUMMARY | 2024-08-27 00:47 | XMS_ITS | Encounter Summary ---
Author Organization [facility] Address [facility] [place] [address] Care Team Providers Care Mri Specialist Name Role Phone Nini Machado MD Primary Care Provider [phone] Encounter Details Date Type Department Care Team (Late st Contact Info) Description 01/31/2022 Ancillary Procedure Radiology Library at [facility] [place] [address] Nini Machado MD [address] [facility] [address] [place] [address] Social History Tobacco Use Types [...] in a chcf (including now)? No 06/20/2021 Sex and Gender Information Value Date Recorded Sex Assigned at Not on file Gender Identity Not on file Sexual Orientation Not on file documented as of this encounter Plan of Treatment Upcoming Encounters Date Type Department Care Team (Late st Contact Info) Description 08/30/2024 2:00 PM EST Office Visit Hematology/Oncology at [address] [phone] Mars Conley MD [facility] DR HEMAT[place]Y [place] [address] Cailin Marrero APRN [address] [place] [address] DR [place] [address] 09/07/2024 9:00 AM EST Office Visit [place] [phone] Raven Alvarado MD [facility] [place] [address] 10/04/2024 1:15 PM EST Office [place] [phone] Feliciano Shay, [facility] [place] [address] documented as of this encounter Procedures Procedure Name Priority Date/Time Associated Diagnosis Comments FILM LIBRARY STORAGE ONLY CT CHEST Routine 01/31/2022 12:00 AM EDT documented in this encounter Results * Film Library- Storage Only CT Chest (01/31/2022 12:00 AM EDT) Narrative LIZBET - 02/06/2022 2:34 PM EDT This exam is auto-finalizing. It's purpose is for storage only. Nini Machado MD IMG FILM LIBRARY ORD ERABLES Performing Organization Address City/State/[place] Co de Phone Number [place], [place] documented in this encounter Visit Diagnoses Not on filedocumented in this encounter Care Teams Mri Specialist Relationship Specialty Start Date End Date Nini Machado MD [address] [address] PCP - General 06/26/10 documented as of this encounter
--- OUTSIDE RECORDS SUMMARY | 2024-08-27 00:47 | XMS_ITS | Encounter Summary ---
Author Organization [facility] Address [facility] [place] [address] Care Team Providers Care Chlorination Operator Name Role Phone Nini Machado MD Primary Care Provider [phone] Encounter Details Date Type Department Care Team (Late st Contact Info) Description 10/02/2021 Notes Only Hematology/Oncology at [address] [phone] Nancy Parks, [employer]SEM[employer] OFFICE OF CARE MANAGEMENT Social History Tobacco Use Types Packs/Day Years [...] as of this encounter Progress Notes * Nancy Parks MSW - 10/02/2021 11:39 AM EST Met with pt and she gave me her transportation mileage reimbursement form for [place] [employer] to review, sign and fax for processing. Pt reported she called [place] [employer] because she has not received any reimbursement yet and was told they did not receive the previous faxes sent on pt's behalf. PI[employer] BENCH ASSEMBLER agreed to call pt once able to look back through what was sent. [employer]SEMBLER did find fax verifications for forms sent on 08-30-21 and 09-03-21. PI[employer]O BENCH ASSEMBLER called [place] [employer] to verify they received these faxes. Was told pt should check back next week as they were processing her paperwork. [employer] BENCH ASSEMBLER completed and faxed in this mileage reimbursement form for pt. TC pt to inform her what [place] [employer] reported to [employer]SEM[employer]ER. Encouraged her to call next week as instructed. Care Coordination Transportation resources documented in this encounter Plan of Treatment Upcoming Encounters Date Type Department Care Team (Late st Contact Info) Description 08/30/2024 2:00 PM EST Office Visit Hematology/Oncology at [address] [phone] Mars Conley MD [facility] DR [place] [address] Cailin Marrero, [address] HEMATOLOGY [place] [address] 09/07/2024 9:00 AM EST Office [place] [phone] aRven Alvarado MD [facility] [place] [address] 10/04/2024 1:15 PM EST Office [place] [phone] Feliciano Shay, [facility] [place] [address] documented as of this encounter Visit Diagnoses Not on filedocumented in this encounter Care Teams Chlorination Operator Relationship Specialty Start Date End Date Marco Antonio-Nini Landrum MD [address] [address] PCP - General 06/26/10 documented as of this encounter
--- OUTSIDE RECORDS SUMMARY | 2024-08-27 00:47 | XMS_ITS | Encounter Summary ---
Author Organization [facility] Address [facility] [place] [address] Care Team Providers Care Room Worker Name Role Phone Nini Machado MD Primary Care Provider [phone] Encounter Details Date Type Department Care Team (Late st Contact Info) Description 06/12/2022 8:30 PM EST Ancillary Procedure Radiology Library at [facility] [place] [address] Mars Conley MD [facility] HEMATOLOGY [place] [address] Social History Tobacco Use Types Packs/Day Years [...] PM EST Office Visit Hematology/Oncology at [address] [phone] Mars Conley MD [facility] DR [place] [address] Cailin Marrero APRN [address] [place] [address] DR [place] [address] 09/07/2024 9:00 AM EST Office Visit [place] [phone] Raven Alvarado MD [facility] [place] [address] 10/04/2024 1:15 PM EST Office [place] [phone] Feliciano Shay, [facility] [place] [address] documented as of this encounter Procedures Procedure Name Priority Date/Time Associated Diagnosis Comments FILM LIBRARY STORAGE ONLY CT CHEST Routine 06/12/2022 8:26 PM EST documented in this encounter Results * Film Library- Storage Only CT Chest (06/12/2022 8:26 PM EST) Narrative LIZBET - 06/12/2022 8:26 PM EST This exam is auto-finalizing. It's purpose is for storage only. Mars Conley MD IMG FILM LIBRARY ORD ERABLES [place], [place] documented in this encounter Visit Diagnoses Not on filedocumented in this encounter Care Teams Room Worker Relationship Specialty Start Date End Date Nini Machado MD 79 [facility] 3 [place] [address] PCP - General 06/26/10 documented as of this encounter
--- OUTSIDE RECORDS SUMMARY | 2024-08-27 00:47 | XMS_ITS | Encounter Summary ---
Author Organization [facility] Address [facility] [place] [address] Care Team Providers Care Pulpit Operator Name Role Phone Nini Machado MD Primary Care Provider [phone] Encounter Details Date Type Department Care Team (Late st Contact Info) Description 06/17/2022 3:00 PM EST Office Visit Hematology/Oncology at [address] [phone] Mars Conley MD [facility] DR HEMATOLOGY [place] [address] Lacie Taylor APRN LaRoza, Stephanie A PUMPING STATION SUPERVISOR [address] [place] [address] [place] [address] Small cell carcinoma of lung [...] Sign Reading Time Taken Comments Blood Pressure 128/63 06/17/2022 2:53 PM EST Pulse 60 06/17/2022 2:53 PM EST Temperature 36.3 ??C (97.3 ??F) 06/17/2022 2:53 PM ES T Respiratory Rate 16 06/17/2022 2:53 PM EST Oxygen Saturation 98% 06/17/2022 2:53 PM EST Inhaled Oxygen Concentration - - Weight 66.2 kg (146 lb) 06/17/2022 2:53 PM EST Height 165.1 cm (5' 5) 06/17/2022 2:53 PM EST Body Mass Index 24.3 06/17/2022 2:53 PM EST documented in this encounter Progress Notes * Mars Conley MD - 06/17/2022 3:00 PM EST Images from the original note were not included. Hematology & Medical Oncology [address] [address] Stefanie returns to clinic today for evaluation [...] received hippocampal avoidant WBRT PCI in . Plan: - Discussed the findings and plan for ongoing followup. Discussed the need to never smoke again andneed for ongoing surveillance. - Will communicate to rad onc to clarify MRI brain and STEEL RULE INSPECTOR surveillance plan. Continue namenda for now. - Would plan to reimage with CT chest in 3-4 months # Chronic back pain - she weaned herself off opioids and is now using just MJ gummies with decent control. Mars Conley MD, MS 06/17/[address] [facility] CC: Dino Siegel MD Interval History/Subjective: Last seen 02/11/2022 Not smoking Dyed her hair purple Food no longer tastes off Has gained some weight. Breathing is stab;e and generally good. Goes for a daily walk. Can up a flight of stairs without stopping. Her chronic pain is fairly well controlled with her MJ gummies PRN at this point- not using the opioids. No belly pain No fevers No headaches. Oncology Overview: Cancer Staging Small cell carcinoma [...] Appears amenable to transbronchoscopic biopsy. Referral to dental front office assistant advised. 06.06.21 CT Abdomen Pelvis 1. .No [...] versus lymph node. No new findings. Pathology: [id number] ? 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 The immunoperoxidase stain results support the diagnosis Molecular Data: NA Treatment Course: 07.04.21 C1D1 Carboplatin/Etoposide 07.17.21 Admitted to [facility] with abdominal pain and found to have acute uncomplicated diverticulitis. Treated with abx and discharged on 1. C2 with concurrent BID radiation ending 08.24.21 45 Gy in 30 fractions 08.29.21 C3 09.25.21 C4 PCI- hippocampal avoidant WBRT ONCBCN ONCOLOGY (AMB) 08/08/2021 08/29/2021 08/30/2021 08/31/2021 09/24/2021 09/25/2021 09/26/2021 Day, Cycle Day 3, Cycle 2 Day 1, Cycle 3 Day 2, Cycle 3 Day 3, Cycle 3 Day 1, Cycle 4 Day 2, Cycle 4 Day 3, Cycle 4 CARBOplatin (Paraplatin) IV - 383 mg - - 412 mg - - dexAMETHasone (PF) 10 mg/mL (Decadron) IV - - - - - - - etoposide 20 mg/mL (Vepesid) IV 100 mg/m2/dose = 165 mg 100 mg/m2/dose = 165 mg 100 mg/m2/dose = 165 mg 100 mg/m2/dose = 165 mg 100 mg/m2/dose = 165 mg 100 mg/m2/dose = 165 mg 100 mg/m2/dose = 165 mg Allergies Allergen Reactions ??? Aspirin CIS - Anaphylaxis ??? Nitrofurantoin Monohyd/M-Cryst Other reaction(s): hands tingling, pins and needles, face swollen. ??? Nsaids (Non-Steroidal Anti-Inflammatory Drug) Other reaction(s): Shock / Unconsciousness; ??? Penicillins Other reaction(s): Dermatological problems, e.g., rash, hives; ??? Red Blood Cells Other (See Comments) Antibodies-Difficult to Crossmatch DO NOT REMOVE Please contact the Blood Bank at [phone] for questions. ??? Sulfamethoxazole-Trimethoprim Other reaction(s): Respiratory problems, e.g., wheezing;Dermatological problems, e.g., rash, hives; ??? Methadone Other reaction(s): vomiting ??? Mold Extracts ??? Mushroom Flavor PHYSICAL EXAMINATION: Wt Readings from Last 3 Encounters: 06/17/22 66.2 kg (146 lb) 02/11/22 60.9 kg (134 lb 3.2 oz) 01/02/22 63.7 kg (140 lb 6.4 oz) Temp Readings from Last 3 Encounters: 06/17/22 36.3 ??C (97.3 ??F) (Temporal) 02/11/22 36.4 ??C (97.5 ??F) (Temporal) 01/02/22 37.1 ??C (98.7 ??F) (Temporal) BP Readings from Last 3 Encounters: 06/17/22 128/63 02/11/22 114/53 01/02/22 141/61 Pulse Readings from Last 3 Encounters: 06/17/22 60 02/11/22 76 01/02/22 63 Physical Exam BP 128/63 (Patient Position: Sitting) Pulse 60 Temp 36.3 ??C (97.3 ??F) (Temporal) Resp 16 Ht 5' 5 (165.1 cm) Wt 66.2 kg (146 lb) SpO2 98% BMI 24.30 kg/m?? Physical Exam BP 128/63 (Patient Position: Sitting) Pulse 60 Temp 36.3 ??C (97.3 ??F) (Temporal) Resp 16 Ht 5' 5 (165.1 cm) Wt 66.2 kg (146 lb) SpO2 98% BMI 24.30 kg/m?? Constitutional: Oriented to person, place, and time. Appears well-developed. No distress.She part of her hair purple Mouth/Throat: Wearing a [...] and affect. Thought content normal. Data Review: 06.12.22 CT Chest (I reviewed the imaging personally which shows no clear indication of recurrent disease.) 01.31.22 CT CHest 01.31.22 White blood cell [...] phos 55 albumin 3.6 Imaging Review: 3.08.25 3.122 MRI Brain (I reviewed the imaging [...] 2:00 PM EST Office Visit Hematology/Oncology at [address] [phone] Mars Conley MD [facility] DR [place] [address] Caiiln Marrero APRN [address] [place] [address] DR [place] [address] 09/07/2024 9:00 AM EST Office Visit General Surgery at [place] [phone] Raven Alvarado MD [facility] [place] [address] 10/04/2024 1:15 PM EST Office Visit Neurology at [place] [phone] Feliciano Shay, [facility] [place] [address] documented as of this encounter Visit Diagnoses Diagnosis Small cell carcinoma of lung Malignant neoplasm of bronchus and lung, unspecified site documented in this encounter Care Teams Pulpit Operator Relationship Specialty Start Date End Date Marco Antonio-Nini Landrum MD [address] [address] PCP - General 06/26/10 documented as of this encounter
--- OUTSIDE RECORDS SUMMARY | 2024-08-27 00:47 | XMS_ITS | Encounter Summary ---
Author Organization [facility] Address [facility] [place] [address] Care Team Providers Care Test And Balance Engineer Name Role Phone Nini Machado MD Primary Care Provider [phone] Reason for Visit * Reason Comments Medication Refill Encounter Details Date Type Department Care Team (Late st Contact Info) Description 05/06/2022 Refill [place] [address] Senthil Muller MD [facility] [place] [address] Social History Tobacco Use Types Packs/Day Years [...] place to sleep or slept in a mcfp (including now)? No 06/20/2021 Sex and Gender Information Value Date Recorded Sex Assigned at Not on file Gender Identity Not on file Sexual Orientation Not on file documented as of this encounter Plan of Treatment Upcoming Encounters Date Type Department Care Team (Late st Contact Info) Description 08/30/2024 2:00 PM EST Office Visit Hematology/Oncology at [address] [phone] Mars Conley MD [facility] DR [place] [address] Cailin Marrero [address] [place] [address] 09/07/2024 9:00 AM EST Office Visit [place] [phone] Raven Alvarado MD [facility] [place] [address] 10/04/2024 1:15 PM EST Office [place] [address] Feliciano Shay, [facility] [place] [address] documented as of this encounter Visit Diagnoses Not on filedocumented in this encounter Care Teams Test And Balance Engineer Relationship Specialty Start Date End Date Marco Antonio-Nini Landrum MD [address] [address] PCP - General 06/26/10 documented as of this encounter
--- OUTSIDE RECORDS SUMMARY | 2024-08-27 00:47 | XMS_ITS | Encounter Summary ---
Author Organization [facility] Address [facility] [place] [address] Care Team Providers Care Senior Database Administrator Name Role Phone Nini Machado MD Primary Care Provider [phone] Encounter Details Date Type Department Care Team (Late st Contact Info) Description 2021 Interpretation Only [facility] [address] [place] [phone] Zan Lyons MD 79 [facility] [address] [place] [address] Social History Tobacco Use Types [...] PM EST Office Visit Hematology/Oncology at [address] [phone] Mars Conley MD [facility] DR [place] [address] Cailin Marrero APRN [address] [place] [address] DR HEMATOLOGY [place] [address] 09/07/2024 9:00 AM EST Office Visit [place] [phone] Raven Alvarado MD [facility] [place] [address] 10/04/2024 1:15 PM EST Office Visit [place] [phone] Feliciano Shay, [facility] [place] [address] documented as of this encounter Procedures Procedure Name Priority Date/Time Associated Diagnosis Comments CT FACE WO CONTRAST Routine 2021 2 :16 PM EDT documented in this encounter Results * CT Face wo Contrast (2021 2:16 PM EDT) PT CLASS O RAD ADMITDTTM RAD PT RAD INFO [id number]^S OLNIT^ZAN^ D RAD EXAM DESC CTFACEWO^CT FACE WO CNTRST1^RIS RAD Anatomical Region Laterality Modality Head Computed Tomogra phy Impressions 2021 2:27 PM EDT A small mucus retention cyst in the right maxillary sinus. No evidence of acute sinusitis. Thank you for letting us participate in the care of this patient. ??If you are a health care provider and have any questions regarding this report, please contact the number below. ??For patients who have questions please contact the health child care group leader that requested your imaging first. ? Electronically signed by: Antoni Ramirez MD, Radiology [place] ([phone]), at 2021 2:27 PM Narrative 2021 2:27 PM EDT EXAMINATION: CT FACE WO CNTRST1 CLINICAL HISTORY: persistent sinus pain TECHNIQUE: CT face performed without intravenous contrast administration. COMPARISON: None FINDINGS: Under pneumatized, well aerated frontal sinuses. The remaining paranasal sinuses are well pneumatized and well aerated. There is slight septal deviation to the right. The ostiomeatal complexes are patent bilaterally. A small mucus retention cyst is noted laterally in the right maxillary sinus. The skull base is intact. The orbits are unremarkable. Procedure Note Antoni Ramirez MD - 2021 EXAMINATION: CT FACE WO CNTRST1 CLINICAL HISTORY: persistent sinus pain TECHNIQUE: CT face performed without intravenous contrast administration. COMPARISON: None FINDINGS: Under pneumatized, well aerated frontal sinuses. The remaining paranasalsinuses are well pneumatized and well aerated. There is slight septal deviation tothe right. The ostiomeatal complexes are patent bilaterally. A small mucusretention cyst is noted laterally in the right maxillary sinus. The skull base isintact. The orbits are unremarkable. IMPRESSION A small mucus retention cyst in the right maxillary sinus. No evidence ofacute sinusitis. Thank you for letting us participate in the care of this patient. If youare a health care provider and have any questions regarding this report,please contact the number below. For patients who have questions please contactthe health child care group leader that requested your imaging first. Electronically signed by: Antoni Ramirez MD, [facility]([phone]), at 2021 2:27 PM Zan Lyons MD IMG CT ORDERABLES documented in this encounter Visit Diagnoses Not on filedocumented in this encounter Care Teams Senior Database Administrator Relationship Specialty Start Date End Date Marco Antonio-Nini Landrum MD [address] [place] [phone] PCP - General 06/26/10 documented as of this encounter
--- OUTSIDE RECORDS SUMMARY | 2024-08-27 00:47 | XMS_ITS | Encounter Summary ---
Author Organization [facility] Address [facility] [place] [address] Care Team Providers Care Paper Final Inspector Name Role Phone Nini Machado MD Primary Care Provider [phone] Encounter Details Date Type Department Care Team (Latest Contact Info) Description 10/25/2021 9:00 AM EDT TH Visit (TeleHealth) [place] [address] Senthil Muller MD [facility] [place] [address] Small cell carcinoma of lung Social History [...] in a half-way (including now)? No 06/20/2021 Sex and Gender Information Value Date Recorded Sex Assigned at Not on file Gender Identity Not on file Sexual Orientation Not on file documented as of this encounter Progress Notes * Senthil Muller MD - 10/25/2021 9:00 AM EDT Images from the original note were not included. Radiation Oncology Follow Up Visit Patient Identity: Patient name: Stefanie Pina Date of : 1955 Chief complaint: Limited stage small cell lung cancer Cancer Staging Small cell carcinoma of lung Staging form: Lung, AJCC 8th Edition - Clinical stage from 06/20/2021: cT0, cN2, cM0 - Signed by Juan Fitzpatrick MD on 06/20/2021 Referring: Nini Machado MD [address] [place] [address] History: Treatment History: Stefanie Pina was diagnosed with limited stage small cell lung caner in 06/2021. Her cancer consisted primarily of right hilar and subcarinal lymphadenopathy without a distinct primary. ??? Definitive/curative intent chemo/RT: 45Gy (BID fractionation) with 4 cycles of CDDP/GRADUATE FELLOW-16. Lastcycle on 09/25/2021. Interval History: I spoke with Stefanie on the telephone today for a telephone follow up visit. Her [id number] was also on the call. Stefanie reports feeling much better. She is not back to 100% of her pre-treatment baseline but feels that she is recovering steadily. She had a chest CT on 10/02/2021 showing continued decrease in size of the initially enlarged mediastinal/hilar LAD with no new sites of cancer. She also had a brain MRI on 10/02/2021 that did not show any brain metastases. I have personally reviewed the imaging studies referenced above. Exam: No data found. Physical exam not done due to telephone visit format; it was not required for the purpose of today's visit KPS ECOG Definition [] 90-100 0 Fully active, able to carry on all pre-disease performance without restriction [x] 70-80 1 Restricted in physically strenuous activity [...] to bed or chair Summary/Recommendations: Impression: Stefanie Pina is recovering well from her treatment for limited stage small cell lung cancer. Her initial post-treatment restaging scans show an excellent response in her chest and no SPORTS STATISTICIAN metastases. Today we discussed prophylactic cranial irradiation that is part of the standard treatment for limited stage small cell lung cancer. The intention is to decrease the incidence of brain metastases,and it does have a known positive effect on the overall cure rate for limited stage small cell lungcancer (~5% absolute; ~20% relative). The downside is that there can be some neuro-cognitive side effects resulting in reduced short-term memory and/or executive functioning. In her age group the risk of these is moderate. If she agrees to treatment she will be treated with concurrent memantine Power would intend to use hippocampal avoidance IMRT; both are measures to try to limit the adverse effects of the treatment. Alternative to treatment would be observation only. If she is to develop brain metastases in the future she would need therapeutic whole-brain RT which is higher dose and the likelihood of cure in a slavage situation would be minimal; the intention at that point is palliative. She will consider options. She indicated that she is leaning toward wanting treatment and likely would want to do that treatment in [facility]. Plan: 1. Stefanie is to call me in the next few days to let me know how she would like to proceed. Thank you for allowing me to participate in the care of Stefanie Pina. Senthil Muller MD New Orders: No orders of the defined types were placed in this encounter. documented in this encounter Plan of Treatment Upcoming Encounters Date Type Department Care Team (Late st Contact Info) Description 08/30/2024 2:00 PM EST Office Visit Hematology/Oncology at [address] [phone] Mars Conley MD [facility] DR HEMATOLOGY [place] [address] Cailin Marrero [address] [place]EMATOLOGY [place] [address] 09/07/2024 9:00 AM EST Office [place] [phone] Raven Alvarado MD [facility] [place] [address] 10/04/2024 1:15 PM EST [place] [phone] Feliciano Shay, [facility] [place] [address] documented as of this encounter Visit Diagnoses Diagnosis Small cell carcinoma of lung Malignant neoplasm of bronchus and lung, unspecified site documented in this encounter Care Teams Paper Final Inspector Relationship Specialty Start Date End Date Nini Machado MD [address] [place] [id number] PCP - General 06/26/10 documented as of this encounter
--- OUTSIDE RECORDS SUMMARY | 2024-08-27 00:47 | XMS_ITS | Encounter Summary ---
[facility] Address [facility] [place] [address] Care Team Providers Care Liquid Natural Gas Plant Operator Name Role Phone Nini Machado MD Primary Care Provider [phone] Encounter Details Date Type Department Care Team (Latest Contact Info) Description 03/12/2022 1:30 PM EDT TH Visit (TeleHealth) [place] [address] Senthil Mulelr MD [facility] [place] [address] Small cell carcinoma of lung Social History [...] Progress Notes * Senthil Muller MD - 03/12/2022 1:30 PM EDT Images from the original note were not included. [facility] Medicine Radiation Oncology Radiation Oncology Follow Up Visit Patient Identity: Patient name: Stefanie Pina Date of : 1955 Chief complaint: Limited stage small cell lung cancer ? Post-radiation oral mucositis Referring: Nini Machado MD [address] [place] [address] History: Oncologic History: 09/2021 Diagnosed and treated for limited stage small cell lung cancer (carboplatin/FINISH ROLLS OPERATOR-16 with 45 GyBID thoracic radiation therapy) 11/2021 Prophylactic cranial RT (25Gy in 10 fractions) Interval History: Seen today using the telephone for routine FU. She reports feeling very well. No residual effects of her treatment are noted. She had a brain MRI at [facility] 03/06/2022 and it shows no brain metastases. Her last prior chest CT was in January and it also showed no evidence of recurrent cancer. I have personally reviewed the imaging studies referenced above. Exam: No data found. Comfortable, NAD No exam done due to telephone format [...] is doing very well. It has been 4 months since she completed prophylactic cranial irradiationand her MRI shows no evidence of brain metastases. Chest CT in January is also JAIRO. Happily she has noside effects of the treatment to report at this time. Plan: 1. Brain MRI in 3-4 months for routine surveillance. Thank you for allowing me to participate in the care of Stefanie Pina. Senthil Muller MD New Orders: Orders Placed This Encounter Procedures ??? MRI Brain wwo Contrast (Generic) ??? National Cancer [employer] (NCI) Comprehensive Cancer Center ??? [employer] Commission on Cancer (ACS Kendra) Accredited Cancer Program ??? [employer] (ACR) Accredited Radiation Oncology Program documented in this encounter Plan of Treatment Upcoming Encounters Date Type Department Care Team (Late st Contact Info) Description 08/30/2024 2:00 PM EST Office Visit Hematology/Oncology at [address] [phone] Mars Conley MD [facility] DR [place] [address] Cailin Marrero APRN [address] [place] [address] DR [place]EMATOLOGY [place] [address] 09/07/2024 9:00 AM EST Office [place] [phone] Raven Alvarado MD [facility] [place] [address] 10/04/2024 1:15 PM EST Office [place] [phone] Feliciano Shay, [facility] DR NEUROLOGY DEPT [place], [place] [phone] documented as of this encounter Visit Diagnoses Diagnosis Small cell carcinoma of lung Malignant neoplasm of bronchus and lung, unspecified site documented in this encounter Care Teams Liquid Natural Gas Plant Operator Relationship Specialty Start Date End Date Marco Antonio-Nini Landrum MD [address] [facility] 3 [place] [address] PCP - General 06/26/10 documented as of this encounter
--- OUTSIDE RECORDS SUMMARY | 2024-08-27 00:47 | XMS_ITS | Encounter Summary ---
Author Organization [facility] Address [facility] [address] Care Team Providers Care Facilities Supervisor Name Role Phone Nini Machado MD Primary Care Provider Reason for Visit * Reason Comments Medication Refill Encounter Details Date Type Department Care Team (Late st Contact Info) Description 11/06/2021 Refill [place] [address] Senthil Muller MD [facility] [place] [address] Social History Tobacco Use Types Packs/Day Years [...] in a correction (including now)? No 06/20/2021 Sex and Gender Information Value Date Recorded Sex Assigned at Not on file Gender Identity Not on file Sexual Orientation Not on file documented as of this encounter Plan of Treatment Upcoming Encounters Date Type Department Care Team (Late st Contact Info) Description 08/30/2024 2:00 PM EST Office Visit Hematology/Oncology at [address] [phone] Mars Conley MD [facility] DR [place] [address] Cailin Marrero [address] [place] [address] 09/07/2024 9:00 AM EST Office [place] [phone] Raven Alvarado MD [facility] [place] [address] 10/04/2024 1:15 PM EST Office [place] [address] Feliciano Shay, [facility] [place] [address] documented as of this encounter Visit Diagnoses Not on filedocumented in this encounter Care Teams Facilities Supervisor Relationship Specialty Start Date End Date Marco Antonio-Nini Landrum MD [address] [address] PCP - General 06/26/10 documented as of this encounter
--- OUTSIDE RECORDS SUMMARY | 2024-08-27 00:47 | XMS_ITS | Encounter Summary ---
Author Organization [facility] Address [facility] [place] [address] Care Team Providers Care Matchbook Maker Name Role Phone Nini Machado MD Primary Care Provider [phone] Encounter Details Date Type Department Care Team (Late st Contact Info) Description 09/24/2021 12:30 PM EST Office Visit Hematology/Oncology at [address] [phone] [facility] DR [place] [address] Small cell carcinoma of lung Social History [...] as of this encounter Progress Notes * Stephanie Baird RD - 09/24/2021 12:30 PM EST Nutrition Note Spoke with Stefanie while in infusion today, her last chemo treatment. She is eating well, has no swallowing difficulty, nausea, taste changes, or reflux. She was having a fruit cup and greek muffin with peanut butter and jelly today. She ate pork and potato last night. Patient is no longer drinkingEnsure. Her weight is up slightly. Wt Readings from Last 3 Encounters: 09/24/21 59.5 kg (131 lb 3.2 oz) 09/21/21 57.2 kg (126 lb) 09/17/21 59.1 kg (130 lb 3.2 oz) Will f/u with patient as needed. documented in this encounter Plan of Treatment Upcoming Encounters Date Type Department Care Team (Late st Contact Info) Description 08/30/2024 2:00 PM EST Office Visit Hematology/Oncology at [address] [phone] Mars Conley MD [facility] DR [place] [address] Cailin Marrero [address] [place] [address] 09/07/2024 9:00 AM EST Office [place] [phone] Raven Alvarado MD [facility] [place] [address] 10/04/2024 1:15 PM EST Office [place] [phone] Feliciano Shay, [facility] [place] [address] documented as of this encounter Visit Diagnoses Diagnosis Small cell carcinoma of lung Malignant neoplasm of bronchus and lung, unspecified site documented in this encounter Care Teams Matchbook Maker Relationship Specialty Start Date End Date Marco Antonio-Nini Landrum MD [address] [address] PCP - General 06/26/10 documented as of this encounter
--- OUTSIDE RECORDS SUMMARY | 2024-08-27 00:47 | XMS_ITS | Encounter Summary ---
Author Organization [facility] Address [facility] [place] [address] Care Team Providers Care Manager Print Name Role Phone Nini Machado MD Primary Care Provider [phone] Encounter Details Date Type Department Care Team (Late st Contact Info) Description 07/11/2022 7:15 PM EST Ancillary Procedure Radiology Library at [facility] [place] [place] [address] Senthil Muller MD [facility] [place] [address] Social History Tobacco Use Types Packs/Day Years [...] in a fci (including now)? No 06/20/2021 Sex and Gender Information Value Date Recorded Sex Assigned at Not on file Gender Identity Not on file Sexual Orientation Not on file documented as of this encounter Plan of Treatment Upcoming Encounters Date Type Department Care Team (Late st Contact Info) Description 08/30/2024 2:00 PM EST Office Visit Hematology/Oncology at [address] [phone] Mars Conley MD [facility] DR [place] [address] Cailin Marrero APRN [address] [place] [address] DR HEMATOLOGY [place] [address] 09/07/2024 9:00 AM EST Office [place] [phone] Raven Alvarado MD [facility] [place] [address] 10/04/2024 1:15 PM EST Office [place] [phone] Feliciano Shay, [facility] [place] [address] documented as of this encounter Procedures Procedure Name Priority Date/Time Associated Diagnosis Comments FILM LIBRARY STORAGE ONLY MR HEAD Routine 07/11/2022 7:14 PM EST documented in this encounter Results * Film Library- Storage Only MR Head (07/11/2022 7:14 PM EST) Narrative [facility] - 07/11/2022 7:14 PM EST This exam is auto-finalizing. It's purpose is for storage only. Senthil Muller MD G FILM LIBRARY ORD ERABLES [place], [place] documented in this encounter Visit Diagnoses Not on filedocumented in this encounter Care Teams Manager Print Relationship Specialty Start Date End Date Nini Machado MD 79 [facility] 3 [place] [address] PCP - General 06/26/10 documented as of this encounter
--- OUTSIDE RECORDS SUMMARY | 2024-08-27 00:47 | XMS_ITS | Encounter Summary ---
Author Organization [facility] Address [facility] Paz [facility] [place] [address] Care Team Providers Care Regional Trainer Name Role Phone Nini Machado MD Primary Care Provider [phone] Encounter Details Date Type Department Care Team (Late st Contact Info) Description 11/07/2021 12:00 PM EDT Ancillary Procedure [place] [address] Senthil Muller MD [facility] DR RADIATION [place] [address] Social History Tobacco Use Types Packs/Day Years [...] 2:00 PM EST Office Visit Hematology/Oncology at [address] [phone] Mars Conley MD [facility] DR HEMATOLOGY [place] [address] Cailin Marrero [address] HEMATOLOGY AND ONCOLOGY [place], [place] [address] 09/07/2024 9:00 AM EST Office Visit [place] [phone] Raven Alvarado MD [facility] DR GENER[place] [address] 10/04/2024 1:15 PM EST Office [place] [phone] Feliciano Shay, [facility] DR NEUROLOGY [place] [address] Pending Results Name Type Priority Associated Diagnoses Date /Time Film Library Radiation Oncology Studies Imaging Storage Only Routine 11/07/2021 12:47 PM EDT documented as of this encounter Visit Diagnoses Not on filedocumented in this encounter Care Teams Regional Trainer Relationship Specialty Start Date End Date Marco Antonio-Nini Landrum MD [address] [place] [address] PCP - General 06/26/10 documented as of this encounter
--- OUTSIDE RECORDS SUMMARY | 2024-08-27 00:47 | XMS_ITS | Encounter Summary ---
Author Organization [facility] [place] [address] Care Team Providers Care Rn Behavioral Health Name Role Phone Nini Machado MD Primary Care Provider [phone] Encounter Details Date Type Department Care Team (Late st Contact Info) Description 07/01/2022 Notes Only [place] [phone] Fidel Friedman, JENNY [address] [place] [address] [place] [address] Social History Tobacco Use Types Packs/Day Years [...] as of this encounter Progress Notes * Fidel Friedman PA - 07/01/2022 10:11 AM EST Endoscopy Triage Review Procedure: Colonoscopy Indication: 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, overdue for follow-up Sedation: MAC Rationale for MAC: COPD, anxiety Timeframe: within 2 weeks Specific provider: first available OV needed: No Anticoagulation status: no documented anticoagulation use documented in this encounter Plan of Treatment Upcoming Encounters Date Type Department Care Team (Late st Contact Info) Description 08/30/2024 2:00 PM EST Office Visit Hematology/Oncology at [address] [phone] Mars Conley MD [facility] DR [place] [address] Cailin Marrero APRN [address] [place] [address] DR [place]Y [place] [address] 09/07/2024 9:00 AM EST Office Visit [place] [phone] Raven Alvarado MD [facility] [place] [address] 10/04/2024 1:15 PM EST Office [place] [phone] Feliciano Shay, [facility] [place] [address] documented as of this encounter Visit Diagnoses Not on filedocumented in this encounter Care Teams Rn Behavioral Health Relationship Specialty Start Date End Date Marco Antonio-Nini Landrum MD [address] [address] PCP - General 06/26/10 documented as of this encounter
--- OUTSIDE RECORDS SUMMARY | 2024-08-27 00:47 | XMS_ITS | Encounter Summary ---
Author Organization [facility] Address [facility] [place] [address] Care Team Providers Care Link Trainer Operator Name Role Phone Nini Machado MD Primary Care Provider [phone] Encounter Details Date Type Department Care Team (Late st Contact Info) Description 10/02/2021 12:05 AM EST Ancillary Procedure Radiology Library at [facility] [place] [address] Nini Machado MD 79 [facility] 3 [place] [address] Social History Tobacco Use Types [...] PM EST Office Visit Hematology/Oncology at [address] [phone] Mars Conley MD [facility] [place] [address] Cailin Marrero APRN [address] [place] [address] DR HEMATOLOGY [place] [address] 09/07/2024 9:00 AM EST Office [place] [phone] Raven Alvarado MD [facility] [place] [address] 10/04/2024 1:15 PM EST Office [place] [address] Feliciano Shay, [facility] [place] [place] [address] documented as of this encounter Procedures Procedure Name Priority Date/Time Associated Diagnosis Comments FILM LIBRARY STORAGE ONLY MR HEAD Routine 10/02/2021 12:05 AM EST documented in this encounter Results * Film Library- Storage Only MR Head (10/02/2021 12:05 AM EST) Narrative [facility] - 10/03/2021 8:43 AM EST This exam is auto-finalizing. It's purpose is for storage only. Nini Machado MD IMG FILM LIBRARY ORD ERABLES [place], [place] documented in this encounter Visit Diagnoses Not on filedocumented in this encounter Care Teams Link Trainer Operator Relationship Specialty Start Date End Date Nini Machado MD [address] [address] PCP - General 06/26/10 documented as of this encounter
--- OUTSIDE RECORDS SUMMARY | 2024-08-27 00:47 | XMS_ITS | Encounter Summary ---
Author Organization [facility] Address [facility] [place] [address] Care Team Providers Care Business Architect Name Role Phone Nini Machado MD Primary Care Provider [phone] Encounter Details Date Type Department Care Team (Late st Contact Info) Description 03/06/2022 12:15 PM EDT Ancillary Procedure Radiology Library at [facility] [place] [address] Nini Machado MD 79 [facility] 3 [place] [address] Social History Tobacco [...] PM EST Office Visit Hematology/Oncology at [address] [phone] Mars Conley MD [facility] DR HEMATOLOGY [place] [address] Cailin Marrero APRN [address] [place] [address] DR [place]EMATOLOGY [place] [address] 09/07/2024 9:00 AM EST Office [place] [phone] Raven Alvarado MD [facility] [place] [address] 10/04/2024 1:15 PM EST Office [place] [address] Feliciano Shay, DO [facility] [place] [address] documented as of this encounter Procedures Procedure Name Priority Date/Time Associated Diagnosis Comments FILM LIBRARY STORAGE ONLY MR HEAD Routine 03/06/2022 12:11 PM EDT documented in this encounter Results * Film Library- Storage Only MR Head (03/06/2022 12:11 PM EDT) Narrative [facility] - 03/06/2022 12:11 PM EDT This exam is auto-finalizing. It's purpose is for storage only. Nini Machado MD IMG FILM LIBRARY ORD ERABLES Performing Organization Address City/State/[facility] Co de Phone Number [place], [place] documented in this encounter Visit Diagnoses Not on filedocumented in this encounter Care Teams Business Architect Relationship Specialty Start Date End Date Nini Machado MD 79 [facility] 3 [place] [address] PCP - General 06/26/10 documented as of this encounter
--- OUTSIDE RECORDS SUMMARY | 2024-08-27 00:47 | XMS_ITS | Encounter Summary ---
Author Organization [facility] Address [facility] [place] [address] Care Team Providers Care Gun Examiner Name Role Phone Nini Machado MD Primary Care Provider [phone] Encounter Details Date Type Department Care Team (Late st Contact Info) Description 05/20/2022 Interpretation Only [facility] [address] [place] [phone] Nini Machado MD 79 [facility] 3 [place] [address] Social History Tobacco Use Types [...] PM EST Office Visit Hematology/Oncology at [address] [phone] Mars Conley MD [facility] DR HEMATOLOGY [place] [address] Cailin Marrero APRN [address] [place] [address] DR HEMATOLOGY [place] [address] 09/07/2024 9:00 AM EST Office [place] [phone] Raven Alvarado MD [facility] [place] [address] 10/04/2024 1:15 PM EST [place] [phone] Feliciano hSay, [facility] [place] [address] documented as of this encounter Procedures Procedure Name Priority Date/Time Associated Diagnosis Comments MAMMO SCREENING CAD AND MICHELL BILATERAL Routine 05/20/2022 9:28 AM EDT documented in this encounter Results * Mammo Screening Cad and Michell Bilateral (05/20/2022 9:28 AM EDT) PT CLASS O DH RAD ADMITDTTM DH RAD PT RAD INFO [id number]^YOUNG- GOMEZ^NINI DH RAD EXAM DESC MADDSCTO^BREAST SCREEN TOMOSYNTHESIS BI^RIS RAD Anatomical Region Laterality Modality Breast Bilateral Mammography Impressions 05/20/2022 2:54 PM EDT BI-RADS ??category 1: negative- No mammographic evidence of malignancy. RECOMMENDATION: * ??Regular screening mammograms starting between age 40 and 50 reduces the risk of from breast cancer. * ??All screening tests have both risks and benefits. These risks and benefits should be assessed for each individual patient through discussion with their provider to determine their preferred breast cancer screening schedule. * ??Women should report any breast changes to a health care provider right away. * ??Some women, because of their family history, a genetic tendency, or other factors, should be screened with annual breast MRI as well as with mammograms. (The number of women who fall into this category is very small). Patients and health care providers should discuss the history of each patient to decide if earlier screening and/or breast MRI are appropriate. * ??Screening should continue as long as a woman is in good health and is expected to live 10 years or longer. * ??Screening mammography may not detect 10-15% of breast cancers. Thank you for letting us participate in the care of this patient. ??If you are a health care provider and have any questions regarding this report, please contact the number below. ??For patients who have questions please contact the health reproductive healthcare assistant that requested your imaging first. ? Electronically signed by: Antoni Ramirez MD, [facility] ([phone]), at 05/20/2022 2:54 PM Narrative 05/20/2022 2:54 PM EDT EXAMINATION: BREAST SCREEN TOMOSYNTHESIS BI, SCREEN MAMMO BL INCLUDES CAD CLINICAL HISTORY: mammo screening for malignant neoplasm of breast Family history of breast cancer: None Reproductive history: Parous No personal history of breast cancer. COMPARISON: Previous mammograms were reviewed. TECHNIQUE: ??Bilateral MLO and CC digital mammograms were obtained and reviewed with CAD. ?? 2-D and 3-D tomosynthesis images were obtained. FINDINGS: There are no suspicious microcalcifications, masses, or areas of distortion. No changes compared to prior studies. Breast density: There are scattered areas of fibroglandular density. Procedure Note Antoni Ramirez MD - 05/20/2022 EXAMINATION: BREAST SCREEN TOMOSYNTHESIS BI, SCREEN MAMMO BL INCLUDESCAD CLINICAL HISTORY: mammo screening for malignant neoplasm of breast Family history of breast cancer: None Reproductive history: Parous No personal history of breast cancer. COMPARISON: Previous mammograms were reviewed. TECHNIQUE: Bilateral MLO and CC digital mammograms were obtained andreviewed with CAD. 2-D and 3-D tomosynthesis images were obtained. FINDINGS: There are no suspicious microcalcifications, masses, or areasof distortion. No changes compared to prior studies. Breast density: There are scattered areas of fibroglandular density. IMPRESSION BI-RADS category 1: negative- No mammographic evidence of malignancy. RECOMMENDATION: * Regular screening mammograms starting between age 40 and 50 reduces therisk of from breast cancer. * All screening tests have both risks and benefits. These risks andbenefits should be assessed for each individual patient through discussion withtheir provider to determine their preferred breast cancer screening schedule. * Women should report any breast changes to a health care provider rightaway. * Some women, because of their family history, a genetic tendency, orother factors, should be screened with annual breast MRI as well as withmammograms. (The number of women who fall into this category is very small). Patientsand health care providers should discuss the history of each patient to decideif earlier screening and/or breast MRI are appropriate. * Screening should continue as long as a woman is in good health and is expected to live 10 years or longer. * Screening mammography may not detect 10-15% of breast cancers. Thank you for letting us participate in the care of this patient. If youare a health care provider and have any questions regarding this report,please contact the number below. For patients who have questions please contactthe health reproductive healthcare assistant that requested your imaging first. Electronically signed by: Antoni Ramirez MD, [facility]([phone]), at 05/20/2022 2:54 PM Nini Machado MD IMG MAMMO ORDERABLES documented in this encounter Visit Diagnoses Not on filedocumented in this encounter Care Teams Gun Examiner Relationship Specialty Start Date End Date Nini Machado MD [address] [address] PCP - General 06/26/10 documented as of this encounter
--- OUTSIDE RECORDS SUMMARY | 2024-08-27 00:47 | XMS_ITS | Encounter Summary ---
Author Organization [facility] Address One [facility] [place] [address] Care Team Providers Care Lapel Stitcher Name Role Phone Nini Machado MD Primary Care Provider [phone] Encounter Details Date Type Department Care Team (Late st Contact Info) Description 09/24/2021 Notes Only Hematology/Oncology at [address] [phone] Nancy Parks, [facility] OFFICE OF CARE MANAGEMENT Social History Tobacco [...] in a mcc (including now)? No 06/20/2021 Sex and Gender Information Value Date Recorded Sex Assigned at Not on file Gender Identity Not on file Sexual Orientation Not on file documented as of this encounter Progress Notes * Nancy Parks MSW - 09/24/2021 2:39 PM EST Follow up with pt during her infusion visit today. Pt indicated she will be done with her chemotherapy later this week. She recalled all she has been through since she started her treatments. She hasfelt well supported by the treatment staff. Pt indicated she is managing day to day at home. Her sister in law continues as her primary support. Pt did not identify any new needs at this time. Offered support. Reminded pt of [facility] availability and contact information. Will continue to be a resource to her. Brief assessment Supportive Counseling documented in this encounter Plan of Treatment Upcoming Encounters Date Type Department Care Team (Late st Contact Info) Description 08/30/2024 2:00 PM EST Office Visit Hematology/Oncology at [address] [phone] Mars Conley MD [facility] DR HEMATOLOGY [place] [address] Cailin Marrero APRN [address] [place] [address] DR HEMATOLOGY [place] [address] 09/07/2024 9:00 AM EST Office [place] [phone] Raven Alvarado MD [facility] [place] [address] 10/04/2024 1:15 PM EST Office [place] [phone] Feliciano Shay, [facility] [place] [address] documented as of this encounter Visit Diagnoses Not on filedocumented in this encounter Care Teams Lapel Stitcher Relationship Specialty Start Date End Date Nini Machado MD 79 [facility] 3 [place], [place] [phone] PCP - General 06/26/10 documented as of this encounter
--- OUTSIDE RECORDS SUMMARY | 2024-08-27 00:47 | XMS_ITS | Encounter Summary ---
Author Organization [facility] Address [facility] [place] [address] Care Team Providers Care Charging Crane Operator Name Role Phone Nini Machado MD Primary Care Provider [phone] Encounter Details Date Type Department Care Team (Late st Contact Info) Description 02/11/2022 3:15 PM EDT Office Visit Hematology/Oncology at [address] [phone] Mars Conley MD [facility] DR [place] [address] Lacie Taylor APRN Small cell carcinoma of lung Social History [...] Sign Reading Time Taken Comments Blood Pressure 114/53 02/11/2022 3:05 PM EDT Pulse 76 02/11/2022 3:05 PM EDT Temperature 36.4 ??C (97.5 ??F) 02/11/2022 3:05 PM ED T Respiratory Rate 18 02/11/2022 3:05 PM EDT Oxygen Saturation 97% 02/11/2022 3:05 PM EDT Inhaled Oxygen Concentration - - Weight 60.9 kg (134 lb 3.2 oz) 02/11/2022 3:05 P M EDT Height 165.1 cm (5' 5) 02/11/2022 3:05 PM EDT Body Mass Index 22.33 02/11/2022 3:05 PM EDT documented in this encounter Progress Notes * Mars Conley MD - 02/11/2022 3:15 PM EDT Images from the original note were not included. Hematology & Medical Oncology [address] [address] Stefanie returns to clinic today [...] rad onc to clarify MRI brain and BOBBIN DUMPER surveillance plan. Continue namenda for now. - Would plan to reimage with CT chest in 3-4 months # Chronic back pain - she weaned herself off opioids and is now using just MJ gummies with decent control. Mars Conley MD, MS 02/11/2022 Thoracic Oncology [facility] CC: Dino Siegel MD Interval History/Subjective: Last seen 10/15/2021 Food tastes funny. Feels more short of breath. Saw her PCP and gave her COPD treatment which she has just starte dyusing 2 days ago.Also note it better when stays inside with the AC Her chronic pain is fairly well controlled on her MJ gummies at this point- not using the opioids. No belly pain No fevers Still some lightheadedness No worse. No headaches. Not smoking.. Oncology Overview: Cancer Staging Small cell carcinoma [...] Appears amenable to transbronchoscopic biopsy. Referral to interpretative dancer advised. 11.3.21 CT Abdomen Pelvis 1. .No nephrolithiasis, or [...] versus lymph node. No new findings. Pathology: [id number] ? 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 Treated with abx and discharged on 08.06.21 C2 with concurrent BID radiation ending 08.24.21 45 Gy in 30 fractions 1 C3 2 C4 PCI- hippocampal avoidant WBRT ONCBCN ONCOLOGY [...] REMOVE Please contact the Blood Bank at [phone] for questions. ??? Sulfamethoxazole-Trimethoprim Other reaction(s): Respiratory problems, e.g., wheezing;Dermatological problems, e.g., rash, hives; ??? Methadone Other reaction(s): vomiting ??? Mold Extracts ??? Mushroom Flavor PHYSICAL EXAMINATION: Wt Readings from Last 3 Encounters: 02/11/22 60.9 kg (134 lb 3.2 oz) 01/02/22 63.7 kg (140 lb 6.4 oz) 11/29/21 62.1 kg (136 lb 12.8 oz) Temp Readings from Last 3 Encounters: 02/11/22 36.4 ??C (97.5 ??F) (Temporal) 01/02/22 37.1 ??C (98.7 ??F) (Temporal) 11/29/21 36.6 ??C (97.9 ??F) (Temporal) BP Readings from Last 3 Encounters: 02/11/22 114/53 01/02/22 141/61 11/29/21 138/79 Pulse Readings from Last 3 Encounters: 02/11/22 76 01/02/22 63 11/29/21 66 Physical Exam BP 114/53 (Patient Position: Sitting) Pulse 76 Temp 36.4 ??C (97.5 ??F) (Temporal) Resp 18 Ht 165.1 cm (5' 5) Wt 60.9 kg (134 lb 3.2 oz) SpO2 97% BMI 22.33 kg/m?? Physical Exam Constitutional: General: Not in acute distress. Appearance: Normal appearance. Normal weight. Not ill-appearing, toxic-appearing or diaphoretic. HENT: Head: Atraumatic. Eyes: General: No scleral icterus. Right eye: No discharge. Left eye: No discharge. Conjunctiva/sclera: Conjunctivae normal. Pulmonary: Effort: Pulmonary effort is normal. Neurological: General: No focal deficit present. Mental Status: Alert and oriented to person, place, and time. Mental status is at baseline. Psychiatric: Mood and Affect: Mood normal. Behavior: Behavior normal. Thought Content: Thought content normal. Judgment: Judgment normal. Data Review: 01.31.22 CT CHest (I reviewed the imaging personally which shows no clear indication of recurrent disease.) Media Information Document Information Radiology and Imaging: External Radiology CT Scan Report CT CHEST [facility] 01/31/22 01/31/2022 00:00 Attached To: Scan Doc: Ct Scan [[id number]] scans only on 01/31/22 with Unknown Source Information Unknown 01.31.22 White blood cell count 5.24 hemoglobin 12.9 platelet count 209,000 absolute neutrophil count 3.77 Sodium 138 potassium 3.3 slightly low chloride 99 BUN 15 creatinine 1.0 glucose 124 calcium 9.4 magnesium 1.8 total bilirubin 0.4 AST 11 ALT 18 alk phos 60 albumin 3.8 2. White blood cell count 1.55 hemoglobin 9.1 [...] alk phos 55 albumin 3.6 Imaging Review: 10.02.21 3.08.25 MRI Brain (I reviewed the imaging personally [...] PM EST Office Visit Hematology/Oncology at [address] [phone] Mars Conley MD [facility] [place] [address] Cailin Marrero APRN [address] [place] [address] DR HEMATOLOGY AND ONCOLOGY [place], [place] [address] 09/07/2024 9:00 AM EST Office Visit [place] [phone] Raven Alvarado MD [facility] [place] [address] 10/04/2024 1:15 PM EST Office [place] [phone] Feliciano Shay, [facility] [place] [address] documented as of this encounter Visit Diagnoses Diagnosis Small cell carcinoma of lung Malignant neoplasm of bronchus and lung, unspecified site documented in this encounter Care Teams Charging Crane Operator Relationship Specialty Start Date End Date Marco Antonio-Nini Landrum MD [address] [address] PCP - General 06/26/10 documented as of this encounter
--- OUTSIDE RECORDS SUMMARY | 2024-08-27 00:47 | XMS_ITS | Encounter Summary ---
Author Organization [facility] Address [facility] [place] [address] Care Team Providers Care Oncology Rep Name Role Phone Nini Machado MD Primary Care Provider Encounter Details Date Type Department Care Team (Late st Contact Info) Description 10/15/2021 11:30 AM EDT Office Visit Hematology/Oncology at [address] [phone] Mars Conley MD [facility] DR HEMATOLOGY [place] [address] Faye Pritchett APRN [facility] [place] [address] Small cell carcinoma of lung (Primary Dx) Social History Tobacco Use Types Packs/Day Years [...] Sign Reading Time Taken Comments Blood Pressure 161/65 10/15/2021 11:28 AM EDT Pulse 77 10/15/2021 11:28 AM EDT Temperature 36.3 ??C (97.3 ??F) 10/15/2021 11:28 AM E DT Respiratory Rate 18 10/15/2021 11:28 AM EDT Oxygen Saturation 100% 10/15/2021 11:28 AM EDT Inhaled Oxygen Concentration - - Weight 62.3 kg (137 lb 6.4 oz) 10/15/2021 11:28 AM EDT Height 165.1 cm (5' 5) 10/15/2021 11:28 AM EDT Body Mass Index 22.86 10/15/2021 11:28 AM EDT documented in this encounter Progress Notes * Mars Conley MD - 10/15/2021 11:30 AM EDT Images from the original note were not included. Hematology & Medical Oncology [address] [address] Stefanie returns to clinic today for evaluation of her small cell lung cancer. ASSESSMENT AND PLAN: Stefanie Pina is a 65 y.o. former smoker diagnosed with limited stage [...] as below. MRI brain without metastatic disease. Plan: - Discussed the findings and plan for ongoing followup. Discussed the need to never smoke again andneed for ongoing surveillance. - Touched on the role of PCI and that radiation oncology will discuss further with her at the followup in the next weeks. - Would plan to reimage with CT chest in 3-4 months # Chronic back pain - she weaned herself off opioids and is now using just MJ gummies with decent control. Mars Conley MD, MS 10/15/2021 Thoracic Oncology [facility] CC: Dino Machado MD Interval History/Subjective: Last seen 08/29/2021. Accompanied by her sister to her appts Her dysphagia has subsided. Feeling significantly better Her chronic pain is fairly well controlled on her MJ gummies at this point- not using the opioids. No belly pain No fevers Eating well Still some lightheadedness No worse. No headaches. Oncology Overview: Cancer Staging Small [...] Appears amenable to transbronchoscopic biopsy. Referral to leather scrubber advised. 06.06.21 CT Abdomen Pelvis 1. .No [...] versus lymph node. No new findings. Pathology: [id number] ? Location: 4T; EA13; A ?Non-Care Partner Final DIAGNOSIS Positive for Malignancy DISCUSSION Lymph [...] in 30 fractions 08.29.21 C3 09.25.21 C4 ONCBCN ONCOLOGY (AMB) 08/08/2021 08/29/2021 08/30/2021 08/31/2021 09/24/2021 09/25/2021 09/26/2021 Day, Cycle Day 3, Cycle 2 Day 1, Cycle 3 Day 2, Cycle 3 Day 3, Cycle 3 Day 1, Cycle 4 Day 2, Cycle 4 Day 3, Cycle 4 CARBOplatin (Paraplatin) IV - 383 mg - - 412 mg - - dexamethasone (PF) 10 mg/mL (Decadron) IV - - [...] REMOVE Please contact the Blood Bank at [phone] for questions. ??? Sulfamethoxazole-Trimethoprim Other reaction(s): Respiratory problems, e.g., wheezing;Dermatological problems, e.g., rash, hives; ??? Methadone Other reaction(s): vomiting ??? Mold Extracts ??? Mushroom Flavor PHYSICAL EXAMINATION: Wt Readings from Last 3 Encounters: 10/15/21 62.3 kg (137 lb 6.4 oz) 09/26/21 60 kg (132 lb 3.2 oz) 09/25/21 60.1 kg (132 lb 6.4 oz) Temp Readings from Last 3 Encounters: 10/15/21 36.3 ??C (97.3 ??F) (Temporal) 09/26/21 36.4 ??C (97.5 ??F) (Temporal) 09/25/21 36.4 ??C (97.5 ??F) (Temporal) BP Readings from Last 3 Encounters: 10/15/21 161/65 09/26/21 144/62 09/25/21 135/56 Pulse Readings from Last 3 Encounters: 10/15/21 77 09/26/21 63 09/25/21 62 Physical Exam BP 161/65 (Patient Position: Sitting) Pulse 77 Temp 36.3 ??C (97.3 ??F) (Temporal) Resp 18 Ht 165.1 cm (5' 5) Wt 62.3 kg (137 lb 6.4 oz) SpO2 100% BMI 22.86 kg/m?? Physical Exam Constitutional: General: Not in [...] content normal. Judgment: Judgment normal. Data Review: 09.17.21 White blood cell count 1.55 hemoglobin 9.1 platelet count 125,000 absolute neutrophil count 0.56 Sodium 143 potassium 3.9 chloride 104 BUN 13 creatinine 0.8 glucose 87 calcium 8.8 magnesium 1.9 LFTs within normal limits albumin 3.4 08/29/21- WBC-6.94 Hgb/Hct-11.5/36.8 Plt-351 ANC-5.09 Na-141 K+-3.8 BUN/Cr-22/1.0 Glucose-91 Ca-9.3 Mg-2.1 T. Bili-0.2 AST-13 ALT-20 Alk phos-73 Albumin-3.5 1.10.23 White blood cell count 5.28 hemoglobin 11.7 platelet count 293,000 absolute neutrophil count3.31 Sodium 143 potassium 4.5 chloride 106 BUN 19 creatinine 0.9 glucose 98 calcium 9.0 magnesium 2.2 total bilirubin 0.3 AST 15 ALT 22 alk phos 55 albumin 3.6 Imaging Review: 10.02.21 (I reviewed the imaging personally which shows a response to treatment.) 10.02.21 MRI Brain (I reviewed the imaging personally [...] PM EST Office Visit Hematology/Oncology at [address] [phone] Mars Conley MD [facility] DR HEMATOLOGY [place] [address] Cailin Marrero APRN [address] [place] [address] DR [place] [address] 09/07/2024 9:00 AM EST Office [place] [address] Raven Alvarado MD [facility] [place] [address] 10/04/2024 1:15 PM EST Office [place] [phone] Feliciano Shay, [facility] [place] [address] documented as of this encounter Visit Diagnoses Diagnosis Small cell carcinoma of lung- Primary Malignant neoplasm of bronchus and lung, unspecified site documented in this encounter Care Teams Oncology Rep Relationship Specialty Start Date End Date Marco Antonio-Nini Landrum MD [address] [address] PCP - General 06/26/10 documented as of this encounter
--- OUTSIDE RECORDS SUMMARY | 2024-08-27 00:47 | XMS_ITS | Encounter Summary ---
Author Organization [facility] Address [facility] [place] [address] Care Team Providers Care Derrick Hand Name Role Phone Nini Machado MD Primary Care Provider [phone] Encounter Details Date Type Department Care Team (Latest Contact Info) Description 07/18/2022 9:00 AM EST TH Visit (TeleHealth) [place] [address] Senthil Muller MD [facility] [place] [address] Small cell carcinoma of right lung Social [...] a group home (including now)? No 06/20/2021 Sex and Gender Information Value Date Recorded Sex Assigned at Not on file Gender Identity Not on file Sexual Orientation Not on file documented as of this encounter Progress Notes * Senthil Muller MD - 07/18/2022 9:00 AM EST Images from the original note were not included. [facility] Medicine Radiation Oncology Radiation Oncology Follow Up Visit Patient Identity: Patient name: Stefanie Pina Date of : 1955 Chief complaint: Limited stage small cell lung cancer ? Post-radiation oral mucositis Referring: Nini Machado MD [address] [place] [address] History: Oncologic History: 09/2021 Diagnosed and treated for limited stage small cell lung cancer (carboplatin/SPRING FORMER-16 with 45 GyBID thoracic radiation therapy) 11/2021 Prophylactic cranial RT (25Gy in 10 fractions) Interval History: Seen today using the telephone for routine FU. She reports feeling very well. She has some functional limitations related to low energy and baseline lung disease but this is stable. She also has somemild noticeable short term memory deficits but has figured ways to adapt to these changes. She had a brain MRI at [facility] 07/11/2022 and it shows no brain metastases. Her last prior chest CT wasin June and it also showed no evidence [...] is doing very well. It has been 8 months since she completed prophylactic cranial irradiationand her MRI shows no evidence of brain metastases. Chest CT in June is also JAIRO. She has minimal side effects of the treatment to report at this time. She is pleased with her current status. Plan: 1. Brain MRI in 3-4 months for routine surveillance, then FU afterward. Coordinate with CT if possible. Thank you for allowing me to participate in the care of Stefanie Pina. Senthil Muller MD New Orders: Orders Placed This Encounter Procedures ??? MRI Brain wwo Contrast (Generic) ??? National Cancer [place] (NCI) [facility] Cancer [facility] ??? [employer] Commission on Cancer (ACS Kendra) Accredited Cancer Program ??? [employer] (ACR) Accredited Radiation Oncology Program documented in this encounter Plan of Treatment Upcoming Encounters Date Type Department Care Team (Late st Contact Info) Description 08/30/2024 2:00 PM EST Office Visit Hematology/Oncology at [address] [phone] Mars Conley MD [facility] DR [place] [address] Cailin Marrero APRN [address] [place] [address] [place] [address] 09/07/2024 9:00 AM EST Office [place] [phone] Raven Alvarado MD [facility] [place] [address] 10/04/2024 1:15 PM EST Office [place] [phone] Feliciano Shay, [facility] [place] [address] documented as of this encounter Visit Diagnoses Diagnosis Small cell carcinoma of right lung documented in this encounter Care Teams Derrick Hand Relationship Specialty Start Date End Date Marco Antonio-Nini Landrum MD [address] [facility] 3 [place], [place] [id number] PCP - General 06/26/10 documented as of this encounter
--- OUTSIDE RECORDS SUMMARY | 2024-08-27 00:47 | XMS_ITS | Encounter Summary ---
Author Organization [facility] Address [facility] [place] [address] Care Team Providers Care Section Maintainer Name Role Phone Nini Machado MD Primary Care Provider [phone] Encounter Details Date Type Department Care Team (Late st Contact Info) Description 11/23/2021 2:30 PM EDT Office Visit Radiation Oncology at [address] [phone] Senthil Muller MD [facility] [place] [address] Small cell carcinoma of right [...] Sign Reading Time Taken Comments Blood Pressure 131/57 11/23/2021 2:00 PM EDT Pulse 73 11/23/2021 2:00 PM EDT Temperature 36.9 ??C (98.4 ??F) 11/23/2021 2:00 PM ED T Respiratory Rate 16 11/23/2021 2:00 PM EDT Oxygen Saturation 95% 11/23/2021 2:00 PM EDT Inhaled Oxygen Concentration - - Weight 62 kg (136 lb 9.6 oz) 11/23/2021 2:00 PM EDT Height - - Body Mass Index 22.73 10/15/2021 11:28 AM EDT documented in this encounter Progress Notes * Senthil Muller MD - 11/23/2021 2:30 PM EDT Images from the original note were not included. [facility] Medicine Radiation Oncology Radiation Oncology On-treatment Visit Patient Identity: Patient name: Stefanie Pina Date of : 1955 Chief complaint: Limited stage small cell lung cancer Oncologic History: Stefanie Pina is a 65 y.o. female who completed initial treatment for limited stage small cell lung cancer in 09/26/2021. Restaging indicated excellent response and no new brain metastases. Treatment: Intent: Prophylactic Site: Brain Prescription: 25 Gy in 10 fractions Technique: VMAT Concurrent chemotherapy: no Treatment Plan Images: Treatment Progress: Plan ID Energy Fractions Dose per Fraction (cGy) Dose Correction (cGy) Total Dose Delivered (cGy) Elapsed Days SHARIF-WBRT 10X 5 / 10 250 0 1,250 4 Setup films checked and approved. Clinical Course: Interval History: OTV1: She is doing well. No significant headache. She is having nausea nearly every day and taking compazine BID; even with this she still feels nauseated through the day. Energy has been good; todayshe notices some fatigue. Minor leg cramps at night. She is taking memantine as Rx'd. Exam: Patient Vitals for the past 24 hrs: Temp Pulse Resp BP SpO2 11/23/21 1400 36.9 ??C (98.4 ??F) 73 16 131/57 95 % Comfortable, NAD NCAT Impression/Plan: Impression: Tolerating treatment. Plan: ?? Continue radiation therapy as planned. ?? Add dexamethasone 2 mg daily for nausea; 10 days then discontinue; may also continue to use compazine PRN ?? Memantine ?? Encouraged PO fluids No orders of the defined types were placed in this encounter. ??? National Cancer [place] (NCI) Comprehensive Cancer Center ??? [employer] Commission on Cancer (ACS Kendra) Accredited Cancer Program ??? [employer] (ACR) Accredited Radiation Oncology Program documented in this encounter Plan of Treatment Upcoming Encounters Date Type Department Care Team (Late st Contact Info) Description 08/30/2024 2:00 PM EST Office Visit Hematology/Oncology at [address] [phone] Mars Conley MD [facility] DR HEMATOLOGY [place] [address] Cailin Marrero APRN [address] [place] [address] DR HEMATOLOGY AND ONCOLOGY [place], [place] [address] 09/07/2024 9:00 AM EST Office [place] [phone] Raven Alvaardo MD [facility] [place] [address] 10/04/2024 1:15 PM EST Office [place] [phone] Feliciano Shay, [facility] [address] documented as of this encounter Visit Diagnoses Diagnosis Small cell carcinoma of right lung documented in this encounter Care Teams Section Maintainer Relationship Specialty Start Date End Date Marco Antonio-Nini Landrum MD [address] [address] PCP - General 06/26/10 documented as of this encounter
--- OUTSIDE RECORDS SUMMARY | 2024-08-27 00:47 | XMS_ITS | Encounter Summary ---
Author Organization [facility] [place] [address] Care Team Providers Care Sprinkler Repair Technician Name Role Phone Nini Machado MD Primary Care Provider Reason for Referral * Consultation (Routine) - Closed Specialty Diagnoses / Procedures Referred By Aldo sotelo Referred To Contact Radiation Oncology Diagnoses Small cell carcinoma of lung Procedures Simulation for Radiation Therapy Planning Senthil Muller MD [facility] [place] [address] [facility] [place] [address] Referral ID Status Reason Start Date Expiration Date V isits Requested Visits Authorized [id number] Closed Consult, Test & Treat 10/29/2021 10/29/2022 1 1 Encounter Details Date Type Department Care Team (Late st Contact Info) Description 10/29/2021 Orders Only [place] [address] Senthil Muller MD [facility] [place] [address] Small cell carcinoma of lung [...] 2:00 PM EST Office Visit Hematology/Oncology at [address] [phone] Mars Conley MD [facility] DR HEMATOLOGY [place] [address] Cailin Marrero APRN [address] [place] [address] DR HEMATOLOGY [place] [address] 09/07/2024 9:00 AM EST Office [place] [phone] Raven Alvarado MD [facility] [place] [address] 10/04/2024 1:15 PM EST Office [place] [phone] Feliciano Shay, [facility] [place] [address] Scheduled Orders Name Type Priority Associated Diagnoses Orde r Schedule Simulation for Radiation Therapy Planning Procedures Routine Small cell carcinoma of lung Ordered: 10/29/2021 documented as of this encounter Visit Diagnoses Diagnosis Small cell carcinoma of lung Malignant neoplasm of bronchus and lung, unspecified site documented in this encounter Care Teams Sprinkler Repair Technician Relationship Specialty Start Date End Date Marco Antonio-Nini Landrum MD [address] [address] PCP - General 06/26/10 documented as of this encounter
--- OUTSIDE RECORDS SUMMARY | 2024-08-27 00:47 | XMS_ITS | Encounter Summary ---
Author Organization [facility] Address [facility] [place] [address] Care Team Providers Care Bronze Chaser Name Role Phone Nini Machado MD Primary Care Provider [phone] Reason for Visit * Reason Comments Chemotherapy C4D3 Etoposide * Treatment/Therapy Plan Authorization (Routine) - Closed Specialty Diagnoses / Procedures Referred By Aldo sotelo Referred To Contact Diagnoses Small cell carcinoma of lung Juan Fitzpatrick MD [facility] [place] [address] Referral ID Status Reason Start Date Expiration Date Visits Re quested Visits Authorized [id number] Closed 06/21/2021 06/21/2022 99 99 Encounter Details Date Type Department Care Team (Late Contact Info) Description 09/26/2021 9:00 AM EST Infusion Hematology Oncology at [address] [phone] Small cell carcinoma of lung Social History Tobacco Use Types Packs/Day Years Used Date Smoking Tobacco: Former Cigarettes 1 42 0 03/11/1979 - 03/11/2021 Smokeless Tobacco: Never Comments:vaping several x/da y Alcohol Use Standard Drinks/Week Comments Never 0 (1 standard drink = 0.6 oz pur e alcohol) Overall Financial Resource Strain (CARDIA) Answ r Date Recorded How hard is it [...] Sign Reading Time Taken Comments Blood Pressure 144/62 09/26/2021 8:48 AM EST Pulse 63 09/26/2021 8:48 AM EST Temperature 36.4 ??C (97.5 ??F) 09/26/2021 8:48 AM ES T Respiratory Rate 20 09/26/2021 8:48 AM EST Oxygen Saturation 100% 09/26/2021 8:48 AM EST Inhaled Oxygen Concentration - - Weight 60 kg (132 lb 3.2 oz) 09/26/2021 8:48 AM EST Height 165.1 cm (5' 5) 09/26/2021 8:48 AM EST Body Mass Index 22 09/26/2021 8:48 AM EST documented in this encounter Progress Notes * Kamilah Nichols RN - 09/26/2021 9:00 AM EST INFUSION THERAPY ADMINISTRATION NOTES DIAGNOSIS: SCLC CYCLE #:Cycle 4 Day3 Etoposide REASON FOR VISIT: to receive chemotherapy HARMONY Watts is here for Cycle 4 Day 3 etoposide. She states she feels well today, ready for treatment. OBJECTIVE LAB DATA: 09/24/21 WBC:5.26 RBC: 3.26 Plt 308 ANC: 3.48 BUN:16 Cr:0.9 IV ACCESS: PIV Pre administration: Chemotherapy orders independently verified for drug name, route, and dosage per patient's height, weight and BSA by Ratna Nichols RN & pharmacist on-site REACTIONS (DESCRIPTION, TIME, INTERVENTION AND EFFECTIVENESS) none ASSESSMENT Flakita was awake, alert and tolerated treatment well. PIV discontinued prior to dismissal. PLAN Return to clinic per plan. documented in this encounter Plan of Treatment Upcoming Encounters Date Type Department Care Team (Late st Contact Info) Description 08/30/2024 2:00 PM EST Office Visit Hematology/Oncology at [address] [phone] Mars Conley MD [facility] DR [place] [address] Cailin Marrero APRN [address] [place] [address] DR [place] [address] 09/07/2024 9:00 AM EST Office Visit [place] [phone] Raven Alvarado MD [facility] [place] [address] 10/04/2024 1:15 PM EST Office [place] [phone] Feliciano Shay, [facility] [place] [address] documented as of this encounter Visit Diagnoses Diagnosis Small cell carcinoma of lung Malignant neoplasm of bronchus and lung, unspecified site documented in this encounter Administered Medications Inactive Administered Medications - up to 3 most recent administrations Medication Order MAR Action Action Date Dose Rate Site dexamethasone (Decadron) injection 10 mg 10 mg, Intravenous, ONCE, 1 dose, On Fri09/26/21 at 0900, Administer prior to chemotherapy Given 09/26/2021 9:25 AM EST 10 mg diphenhydrAMINE (Benadryl) (50 mg/mL) injection 25 mg 25 mg, Intravenous, ONCE, 1 dose, On Fri09/26/21 at 0900, Routine Given 09/26/2021 9:23 AM EST 25 mg etoposide (Vepesid) 165 mg in sodium chloride 0.9% Non-PVC 508.25 mL infusion 165 mg (100 mg/m2/dose ? 1.65 m2 Treatment Plan BSA from Recorded weight), Intravenous, ONCE, 1 dose, On Fri09/26/21 at 1000, Administer over 90 Minutes, Warning Vesicant/Irritant Medication New Bag 09/26/2021 10:13 AM EST 165 mg 338.8 mL/hr famotidine (Pepcid) (10 mg/mL) injection 20 mg 20 mg, Intravenous, ONCE, 1 dose, On Fri09/26/21 at 0900 Given 09/26/2021 9:27 AM EST 20 mg documented in this encounter Care Teams Bronze Chaser Relationship Specialty Start Date End Date Marco Antonio-Nini Landrum MD [address] [address] PCP - General 06/26/10 documented as of this encounter
--- OUTSIDE RECORDS SUMMARY | 2024-08-27 00:47 | XMS_ITS | Encounter Summary ---
Author Organization [facility] Address [facility] [place] [address] Care Team Providers Care Ceramic Design Engineer Name Role Phone Nini Machado MD Primary Care Provider [phone] Encounter Details Date Type Department Care Team (Latest Contact Info) Description 06/17/2022 Travel Social History Tobacco Use Types Packs/Day [...] PM EST Office Visit Hematology/Oncology at [address] [phone] Mars Conley MD [facility] DR [place] [address] Cailin Marrero APRN [address] [place] [address] DR HEMATOLOGY [place] [address] 09/07/2024 9:00 AM EST Office Visit [place] [phone] Raven Alvarado MD [facility] [place] [address] 10/04/2024 1:15 PM EST Office [place] [phone] Feliciano Shay, [facility] [place] [address] documented as of this encounter Visit Diagnoses Not on filedocumented in this encounter Care Teams Ceramic Design Engineer Relationship Specialty Start Date End Date Nini Machado MD [address] [place] [address] 3 [place] [address] PCP - General 06/26/10 documented as of this encounter
--- OUTSIDE RECORDS SUMMARY | 2024-08-27 00:47 | XMS_ITS | Encounter Summary ---
Author Organization [facility] Address [facility] [place] [address] Care Team Providers Care Through Operator Name Role Phone Nini Machado MD Primary Care Provider [phone] Encounter Details Date Type Department Care Team (Late st Contact Info) Description 11/29/2021 Orders Only [place] [address] Senthil Muller MD [facility] [place] [address] Social History Tobacco Use Types Packs/Day Years [...] Progress Notes * Senthil Muller MD - 11/29/2021 12:22 PM EDT Images from the original note were not included. [facility] Medicine Radiation Oncology Radiation Oncology Progress Note Identifiers: Patient name: Stefanie Pina Date of : 1955 I spoke to Stefanie on the phone today to FU re: our visit from last week. Her nausea has improved with low-dose steroid. Today she is feeling a bit off due to COVID booster shot, but o/w feeling much better. ?? Continue dexamethasone until Rx is done. Use compazine PRN after that. ?? Memantine continuation Rx will be sent to pharmacy. ?? FU 3 months with new brain MRI. Senthil Muller MD 11/29/2021 12:22 PM ??? National Cancer [place] (NCI) Comprehensive Cancer Center ??? [employer] Commission on Cancer (ACS Kendra) Accredited Cancer Program ??? [employer] (ACR) Accredited Radiation Oncology Program documented in this encounter Plan of Treatment Upcoming Encounters Date Type Department Care Team (Late st Contact Info) Description 08/30/2024 2:00 PM EST Office Visit Hematology/Oncology at [address] [phone] Mars Conley MD [facility] DR [place] [address] Cailin Marrero APRN [address] [place] [address] DR [place] [address] 09/07/2024 9:00 AM EST Office Visit [place] [phone] Raven Alvarado MD [facility] [place] [address] 10/04/2024 1:15 PM EST Office [place] [phone] Feliciano Shay, [facility] [place] [address] documented as of this encounter Visit Diagnoses Not on filedocumented in this encounter Care Teams Through Operator Relationship Specialty Start Date End Date Marco Antonio-Nini Landrum MD [address] [address] PCP - General 06/26/10 documented as of this encounter
--- OUTSIDE RECORDS SUMMARY | 2024-08-27 00:47 | XMS_ITS | Encounter Summary ---
Author Organization [facility] Address [facility] [place] [address] Care Team Providers Care Dramatic Teacher Name Role Phone Nini Machado MD Primary Care Provider [phone] Encounter Details Date Type Department Care Team (Late st Contact Info) Description 09/24/2021 11:30 AM EST Office Visit Hematology/Oncology at [address] [phone] Ilana Landry APRN [address] [place] [address] [place] [address] Small cell carcinoma of lung; Chemotherapy-induced neutropenia Social History Tobacco Use Types Packs/Day Years [...] Sign Reading Time Taken Comments Blood Pressure 136/59 09/24/2021 11:24 AM EST Pulse 80 09/24/2021 11:24 AM EST Temperature 36.7 ??C (98.1 ??F) 09/24/2021 11:[address] Respiratory Rate 18 09/24/2021 11:24 AM EST Oxygen Saturation 95% 09/24/2021 11:24 AM EST Inhaled Oxygen Concentration - - Weight 59.5 kg (131 lb 3.2 oz) 09/24/2021 11:24 AM EST Height 165.1 cm (5' 5) 09/24/2021 11:24 AM EST Body Mass Index 21.83 09/24/2021 11:24 AM EST documented in this encounter Progress Notes * Ilana Landry, BERNARDINO - 09/24/2021 11:30 AM EST Images from the original note were not included. Subjective Patient ID: Stefanie Pina is a 65 y.o. female. Patient Active Problem List Diagnosis Code ??? Small cell carcinoma of lung C34.90 ??? Allergic rhinitis J30.9 ??? Benign neoplasm of colon, unspecified D12.6 ??? Chronic low back pain M54.50, G89.29 ??? Chronic obstructive pulmonary disease J44.9 ??? External hemorrhoids without complication K64.4 ??? Generalized anxiety disorder F41.1 ??? Hard of hearing H91.90 ??? Hyperlipidemia, mixed E78.2 ??? Leg cramps R25.2 ??? long-term (current) use of opiate analgesic Z79.891 ??? Major depressive disorder, single episode, unspecified F32.9 ??? Venous insufficiency I87.2 HPI Cancer Staging Small cell carcinoma of lung Staging form: Lung, AJCC 8th Edition - Clinical stage from 06/20/2021: cT0, cN2, cM0 - Signed by Juan Fitzpatrick MD on 06/20/2021 ? Presentation: 65 year old with 40+ pk year smoking hx (quit March 2021) found to have an enlarged subcarinal lymph node on lung cancer screening CT scan ?? Staging/PreTx Eval: 05.28.21 CT Chest (screening) I S: Interval subcarinal lymph node enlargement versus new subcarinal mass, indeterminate etiology. Appears amenable to transbronchoscopic biopsy. Referral to precision thread grinder operator advised. ?? 06.06.21 CT Abdomen Pelvis 1. ??.No nephrolithiasis, or evidence of renal/collecting system malignancy. 2. ??Slight interval increase in prominence of a dilated common bile duct, 12 mm in diameter. ?? 06.11.21 MRI Brain - No metastatic disease seen ?? 06.18.21 PET scan IMPRESSION 1. ??A 2.4 cm highly FDG avid necrotic appearing leonardo mass in the subcarinal region and small FDG avid adenopathy in the right hilar and right lower paratracheal regions. Findings are consistent with biopsy-proven small cell lung cancer. 2. ??Indeterminate CT visualized subcentimeter opacity in the superior left lower lobe, unchanged compared to recent CT of 05/28/2021 but not present on CT of 04/14/2020. Attention on follow-up is recommended. 3. ??CT visualized sub-5 mm nodules in the bilateral apex as detailed above, unchanged dating back to CT of 04/14/2020. Continued attention on follow-up. 4. ??Unexpected finding. FDG avid lesion in the wall of the cecum where there is a suggestion of soft tissue thickening on noncontrast CT. This is highly suspicious for a premalignant versus malignant colonic neoplasm. Direct visualization recommended. ?? 07.17.21 CT Abdomen 1. ??Acute uncomplicated sigmoid diverticulitis. 2. ??Ancillary findings as above. ?? 07.24.21 CT Chest Small residual subcarinal soft tissue mass versus lymph node. No new findings. ? Pathology: ? Molecular Data: ? Treatment Course: ?? 07.04.21 C1D1 Carboplatin/Etoposide 07.17.21 Admitted to [facility] with abdominal pain and found to have acute uncomplicated diverticulitis. Treated with abx and discharged on 08.06.21 C2 with concurrent BID radiation ending 08.24.21 45 Gy in 30 fractions 08.29.21 C3 ? ASSESSMENT AND PLAN: (09/17/21) ?? Stefanie Pina is a 65 y.o. former smoker diagnosed with limited stage small cell lung cancer as detailed below. ?? She began treatment with carboplatin (due to hearing loss) and etoposide on 07.04.21. ?? Admitted with diverticulitis on 07.17.21. ?? Plan: ?? # Limited stage small cell- She completed concurrent BID radiation on 08/24/21. ?? -Labs and toxicities assessed. ANC of 560. Afebrile. Will need to hold treatment and reassess. Discussed neutropenic fever precautions - Reassess next week and then have her return about 1 month after treatment with restaging CT Chest ? # Diverticulitis - s/p admission 07/2021. Appears to have recovered well ?? # Chronic back pain - she weaned herself off opioids and is now using just MJ gummies with decent control. ?? # Esophagitis- Using BMX and carafate with relief. Oral intake slowly improving. Shashi Conley MD, MS 09/17/2021 ?? Thoracic Oncology [facility] INTERVAL HPI 09/24/21 Stefanie Pina is a 65 yo female diagnosed in 06/24 with limited stage SCLC. She returns to the [facility] oncology clinic in [facility] today for evaluation following C3 treatment with Carboplatin/Etoposide and planned C4. She has previously completed a course of twice daily RT. C4 was delayed one week due to neutropenia. She is doing well today. Energy level is ok today. She does get fatigued beginning about 4 days after treatment and lasting for the next week when she feels Like she has no ambition. Stefanie did not have fever or chills. No signs of infection. No night sweats. She is eating better this week. She is tolerating all foods without difficulty. She is not reporting any difficulty with her bowels. She is not having any abdominal pain. Stefanie denies shortness of breath. She has been bringing up some phlegm since the radiation, but shethinks it is slowing down now. No blood in sputum. She denies numbness or tingling. No new muscle pains, chronic back pain which is no worse this cycle. No new skin itching or rashes. She is asking me why she has been scheduled for a brain MRI since she is under the impression that her cancer is not likely to spread. I will send a note to Dr. Muller as she would prefer to speak with him directly. Allergies Allergen Reactions ??? Aspirin CIS - Anaphylaxis ??? Nitrofurantoin Monohyd/M-Cryst Other reaction(s): hands tingling, pins and needles, face swollen. ??? Nsaids (Non-Steroidal Anti-Inflammatory Drug) Other reaction(s): Shock / Unconsciousness; ??? Penicillins Other reaction(s): Dermatological problems, e.g., rash, hives; ??? Red Blood Cells Other (See Comments) Antibodies-Difficult to Crossmatch DO NOT REMOVE Please contact the Blood Bank at [phone] for questions. ??? Sulfamethoxazole-Trimethoprim Other reaction(s): Respiratory problems, e.g., wheezing;Dermatological problems, e.g., rash, hives; ??? Methadone Other reaction(s): vomiting ??? Mold Extracts ??? Mushroom Flavor Current Medications ??? doxycycline monohydrate (Monodox) 100 mg Capsule ??? UNABLE TO FIND ??? UNABLE TO FIND ??? sertraline (Zoloft) 50 mg Tablet ??? lactobacillus rhamnosus, GG, (CULTURELLE) 10 billion cell Capsule ??? omeprazole (PriLOSEC) 20 mg Capsule, Delayed Release(E.C.) ??? prochlorperazine (Compazine) 10 mg Tablet ??? Ventolin HFA 90 mcg/actuation HFA Aerosol Inhaler ??? estradioL (ESTRACE) 0.01 % (0.1 mg/gram) Cream ??? EPINEPHrine 0.3 mg/0.3 mL Auto-Injector ??? pravastatin (Pravachol) 20 mg Tablet ??? albuteroL (Proventil) 2.5 mg /3 mL (0.083 %) Solution for Nebulization ??? montelukast (Singulair) 10 mg Tablet ??? diphenhydrAMINE/aluminum-magnesium hydroxide with simethicone/lidocaine (BMX) (6.67 mg-0.83 mg-13.33 mg-1.33 mg/mL) oral liquid ??? sucralfate (Carafate) 1 gram Tablet Review of Systems Constitutional: Positive for fatigue. Negative for fever. HENT: Negative for mouth sores and trouble swallowing. Respiratory: Positive for cough. Negative for shortness of breath. Cardiovascular: Negative for chest pain. Gastrointestinal: Negative for abdominal pain, constipation, diarrhea and nausea. Musculoskeletal: Positive for back pain. Neurological: Negative. Hematological: Negative. Psychiatric/Behavioral: Negative. Objective Physical Exam Constitutional: Appearance: Normal appearance. HENT: Head: Normocephalic. Mouth/Throat: Mouth: Mucous membranes are moist. Pharynx: Oropharynx is clear. Eyes: Extraocular Movements: Extraocular movements intact. Cardiovascular: Rate and Rhythm: Normal rate and regular rhythm. Pulmonary: Breath sounds: No wheezing. Abdominal: General: Bowel sounds are normal. Palpations: Abdomen is soft. Musculoskeletal: General: Normal range of motion. Skin: General: Skin is warm and dry. Findings: No erythema. Neurological: Mental Status: She is alert and oriented to person, place, and time. Coordination: Coordination normal. Psychiatric: Mood and Affect: Mood normal. BP 136/59 (Patient Position: Sitting) Pulse 80 Temp 36.7 ??C (98.1 ??F) (Temporal) Resp 18 Ht 165.1 cm (5' 5) Wt 59.5 kg (131 lb 3.2 oz) SpO2 95% BMI 21.83 kg/m?? LABS 09/24/21 WBC 5.26; ANC 3.48; H/H 10.1/32.1; PLT 308; BUN 16; CREAT 0.9; MAG 2.0; BILI 0.3; LFTs normal Assessment & Plan Stefanie Pina is a 65 yo female diagnosed in 06/24 with limited stage SCLC. She returns to the [facility] oncology clinic in [facility] today for evaluation following C3 treatment with Carboplatin/Etoposide and planned C4. She has previously completed a course of twice daily RT. C4 was delayed one week due to neutropenia. CBC, CMP and Mag reviewed with Stefanie today and meet treatment parameters. Neutropenia resolved without incident. Proceed with C4 Carboplatin/Etoposide today. RTC 10/15 for clinic visit. She documented in this encounter Plan of Treatment Upcoming Encounters Date Type Department Care Team (Late st Contact Info) Description 08/30/2024 2:00 PM EST Office Visit Hematology/Oncology at [address] [phone] Mars Conley MD [facility] DR HEMATOLOGY [place] [address] Cailin Marrero APRN [address] [place] [address] DR HEMATOLOGY [place] [address] 09/07/2024 9:00 AM EST Office [place] [phone] Raven Alvarado MD [facility] DR [place] [address] 10/04/2024 1:15 PM EST Office [place] [phone] Feliciano Shay, [facility] [place] [address] documented as of this encounter Visit Diagnoses Diagnosis Small cell carcinoma of lung Malignant neoplasm of bronchus and lung, unspecified site Chemotherapy-induced neutropenia Drug induced neutropenia documented in this encounter Care Teams Dramatic Teacher Relationship Specialty Start Date End Date Marco Antonio-Nini Landrum MD [address] [address] PCP - General 06/26/10 documented as of this encounter
--- OUTSIDE RECORDS SUMMARY | 2024-08-27 00:47 | XMS_ITS | Encounter Summary ---
Author Organization [facility] [place] [address] Care Team Providers Care Manganese Breaker Name Role Phone Nini Machado MD Primary Care Provider [phone] Reason for Visit * Reason Comments Simulation * Consultation (Routine) - Closed Specialty Diagnoses / Procedures Referred By Aldo [email or web address] Referred To Contact Radiation Oncology Diagnoses Small cell carcinoma of lung Procedures Simulation for Radiation Therapy Planning Senthil Muller MD [facility] [place] [address] [facility] [place] [address] Referral ID Status Reason Start Date Expiration Date V isits Requested Visits Authorized [id number] Closed Consult, Test & Treat 10/29/2021 10/29/2022 1 1 Encounter Details Date Type Department Care Team (Latest Contact Info) Description 11/07/2021 12:00 PM EDT Ancillary Appointment [place] [phone] Senthil Muller MD [facility] [place] [address] Small cell carcinoma of right [...] Sign Reading Time Taken Comments Blood Pressure 122/50 11/07/2021 11:36 AM EDT Pulse 68 11/07/2021 11:36 AM EDT Temperature 36.4 ??C (97.5 ??F) 11/07/2021 11:36 AM E DT Respiratory Rate 18 11/07/2021 11:36 AM EDT Oxygen Saturation 94% 11/07/2021 11:36 AM EDT Inhaled Oxygen Concentration - - Weight 62.8 kg (138 lb 6.4 oz) 11/07/2021 11:38 AM EDT Height - - Body Mass Index 23.03 10/15/2021 11:28 AM EDT documented in this encounter Patient Instructions * Patient Instructions* Mae Bojorquez RN - 11/07/2021 11:27 AM EDT General instructions for Radiation therapy Radiation Oncology Team Radiation Oncologist -The doctor who will direct all aspects of your radiation treatments Nurse Practitioner - They assist your doctor in treating your side effects and with follow up appointments. Registered Nurse - They satnam you in learining about you radaiton treatments, , and things you can do to help manage the side effects. Metallurgical Engineering Technician - They take the doctors radiation prescription and customize it into doses (or days of treatments) specific for you. Physicist - They make sure all the machines are operating correctly and double check calculations for your treatment. Radiation Technologists - They operate the machines which deliver your radiation. You see them daily and they schedule your treatments. Simulation CT/ Planning Session- Your first step after deciding to start radiation treatments is done on a special CT scanner in radiation oncolcgy. The images obtained are used to plan your treatments. This may be scheduled the same day you meet your doctor or in a separate visit. This usually takes between 30 minutes to one hour. You may need an IV for contrast. If so our nurse will let you know that day along with any other special instructions. During this visit we may jae Your skin with a tiny ???tattoos?? , take pictures or make special molds or masks to help us place you in the exact treatment position every day. After this session it takes up to two weeks for your plan to be developed and checked by your doctor, the dosimetrists and the physicist. Skin Care - Your nurse/physician will provide you with the necessary creams and supplies as you need them during your treatments. Please make sure to keep the treatment area clean and dry. Be sure to notice if your clothing rubs or digs into the treatment area and try to wear clothes which are less abrasive, like cotton or loose fitting. Do not use harsh soaps, ointments, deodorants or tapes in the treatment area unless directed by your nurse or doctor. Keep the treatment area out of the sun during treatments. General precautions- DO NOT USE heating pads, hot water bottles, hot poultices, heat lamps, heat in any form, or ice packs to the area of your body being treated. It is common to start feeling fatigue after a few weeks of being treated. You can help minimize this by getting regular exercise or walking and getting plenty of rest. In general a well balanced diet is recommended. The process planner and nurse will inform you of any special diet requirements. Avoid shaving the treatment area with a razor. If you must shave use an electric razor. Our Contact numbers Section of Radiation Oncology Our normal business hours are: Friday - Friday: 8:00 AM to 5:00 PM [facility]: If you have questions about your radiation appointments please ask to speak to one of our secretarystaff. If you have questions for a nurse/doctor about radiation treatments, radiation side effects or you are not feeling well it is best to call early in the day. This allows a nurse to return your call by5 PM the same day. If you call after 4 PM, a nurse will return your call by 5 PM the following day unless it is emergent. If you experience any of the following you need to seek emergency care immediately by calling 911 1. Sudden and unexpected breathing difficulty without any exertion 2. Sudden onset of chest pain 3. Sudden onset of severe pain or uncontrolled pain 4. Sudden onset of severe weakness and/or unable to ambulate 5. Sudden new onset of a seizure 6. Fall resulting in injury A Radiation Oncology doctor is salesperson wigs after our normal hours and on weekends. To call for urgent medical issues from radiation treatments that can not wait until normal businesshours: Call for either location and have the pinking sewing machine operator page the Radiation Oncologist salesperson wigs. Brain Irradiation (WBI): Information for Patients Radiation to the brain is typically given for metastatic disease (disease that has spread to the brain) or to prevent the spread of disease to the brain. On occasion it is given for a primary brain tumor. You will be planned for a certain number treatments, each treatment takes about 15-30 minutes. Planning for Brain Irradiation: The planning session or simulation takes about 45 minutes. A mask will be made at this appointment that forms to the shape of your face and skull. The purpose of this mask is to keep your head from moving during your treatment sessions. The mask is made of a plastic mesh that softens and stretches when it is warmed. The therapists who help with your planning session will mold the softened plasticand shape it to fit your head. The plastic takes about ten minutes to cool and harden. You will be able to breathe and see through the mask. The mask should not be uncomfortable--please tell the therapists if it doesn???t feel right.. Once the mask is made, you will have a CT scan. The images from the CT scan are used by your doctor to create your treatment plan. Daily Treatments: Treatments are painless. Treatment may begin the day of your planning session or shortly thereafter. Common Side Effects: Hair loss--around the last week of your radiation or possibly after finishing your treatments, yourhair at the site being treated will begin to come out. Hair loss is usually complete, and your hairshould start to grow back in about 3 months or so. Your physician can write a prescription for a wig--your insurance plan may cover part of the cost. The ???Look Good--Feel Better?? program sponsored by the [employer] is offered here and may have a number of scarves and head coveringsavailable. You need to keep your head covered when outside in the sun (scarf, hat, wig, hairpiece). Fatigue --the severity of fatigue you may experience depends on your pre- treatment energy levels and previous treatments. Nausea/vomiting--please tell us if this happens to you. There are medications that can help with this side effect. Scalp reddening--your forehead and ears are particularly prone to a skin reaction. Do not apply makeup to the forehead during your radiation. Be careful of sun exposure during treatment and for a year following your treatment.: wWear a broad-brimmed hat when out in the sun for longer than 30 minuteperiods. Your radiation nurse will give you skin care instructions as necessary. Brain swelling--symptoms of swelling can include headache, nausea, vomiting, vision or hearing changes, unsteadiness or weakness. Please let your physician or nurse know if you experience any of these symptoms, especially if it is a new change for you. Weekly Appointments with your radiation oncologist and nurse: Once a week you will meet with your physician and nurse as a team. They will monitor you for side effects of radiation treatments. They may make suggestions to help you with treatments, so it is important for you to let them know how things are going. Please keep a journal with any questions or concerns that may arise during your treatments! documented in this encounter Progress Notes * Senthil Muller MD - 11/07/2021 12:00 PM EDT Images from the original note were not included. Radiation Oncology Simulation Note Patient Identity: Patient name: Stefanie Pina Date of : 1955 Diagnosis: Limited stage small cell lung cancer Cancer Stage: Cancer Staging Small cell carcinoma of lung Staging form: Lung, AJCC 8th Edition - Clinical stage from 06/20/2021: cT0, cN2, cM0 - Signed by Juan Fitzpatrick MD on 06/20/2021 CT simulation was performed with the following parameters: Body part scanned: Head/brain IV contrast used: No 4DCT performed: No Treatment start date: Friday11/19/2021 in [facility] Notes: She tolerated the procedure without incident. I did meet with her prior to the simulation inorder to review the plan for treatment. I was personally present/supervising for the critical portions of the procedure. Senthil Muller MD [facility] Medicine Radiation Oncology [email or web address] [phone] fax [phone] documented in this encounter Plan of Treatment Upcoming Encounters Date Type Department Care Team (Late st Contact Info) Description 08/30/2024 2:00 PM EST Office Visit Hematology/Oncology at [address] [phone] Mars Conley MD [facility] DR HEMATOLOGY [place] [address] Cailin Marrero OTOLARYNGOLOGY SURGEON [address] [place] [address] DR HEMATOLOGY [place] [address] 09/07/2024 9:00 AM EST Office Visit General Surgery at [place] [phone] Raven Alvarado MD [facility] [place] [address] 10/04/2024 1:15 PM EST Office Visit Neurology at [place] [phone] Feliciano Shay, DO [facility] [place] [address] documented as of this encounter Visit Diagnoses Diagnosis Small cell carcinoma of right lung documented in this encounter Care Teams Manganese Breaker Relationship Specialty Start Date End Date Marco Antonio-Nini Landrum MD [address] [id number] PCP - General 06/26/10 documented as of this encounter
--- OUTSIDE RECORDS SUMMARY | 2024-08-27 00:47 | XMS_ITS | Encounter Summary ---
Author Organization [facility] Address [facility] [place] [address] Care Team Providers Care Corporate Fitness Program Coordinator Name Role Phone Nini Machado MD Primary Care Provider [phone] Encounter Details Date Type Department Care Team (Late st Contact Info) Description 10/02/2021 Ancillary Procedure Radiology Library at [facility] [place] [address] Nini Machado MD 79 [facility] 3 [place] [address] Social History Tobacco [...] 2:00 PM EST Office Visit Hematology/Oncology at [address] [phone] Mars Conley MD [facility] [address] HEMATOLOGY [place] [address] Cailin Marrero APRN [address] [place] [address] [place] [address] 09/07/2024 9:00 AM EST Office [place] [phone] Raven Alvarado MD [facility] [place] [address] 10/04/2024 1:15 PM EST Office [place] [phone] Feliciano Shay, [facility] [place] [address] documented as of this encounter Procedures Procedure Name Priority Date/Time Associated Diagnosis Comments FILM LIBRARY STORAGE ONLY CT CHEST Routine 10/02/2021 12:00 AM EST documented in this encounter Results * Film Library- Storage Only CT Chest (10/02/2021 12:00 AM EST) Narrative LIZBET - 10/03/2021 8:41 AM EST This exam is auto-finalizing. It's purpose is for storage only. Nini Machado MD IMG FILM LIBRARY ORD ERABLES Performing Organization Address City/State/[facility] Co de Phone Number [place], [place] documented in this encounter Visit Diagnoses Not on filedocumented in this encounter Care Teams Corporate Fitness Program Coordinator Relationship Specialty Start Date End Date Nini Machado MD [address] [address] PCP - General 06/26/10 documented as of this encounter
--- OUTSIDE RECORDS SUMMARY | 2024-08-27 00:47 | XMS_ITS | Encounter Summary ---
Author Organization [facility] Address [facility] [place] [address] Care Team Providers Care Emotional Disabilities Teacher Name Role Phone Nini Machado MD Primary Care Provider [phone] Encounter Details Date Type Department Care Team (Late st Contact Info) Description 05/20/2022 Interpretation Only [facility] [address] [place] [phone] Nini Machado MD 79 [facility] 3 [place] [address] Social History Tobacco Use Types [...] PM EST Office Visit Hematology/Oncology at [address] [phone] Mars Conley MD [facility] DR [place] [address] Cailin Marrero APRN [address] [place] [address] DR [place] [address] 09/07/2024 9:00 AM EST Office [place] [phone] Raven Alvarado MD [facility] [place] [address] 10/04/2024 1:15 PM EST Office [place] [phone] Feliciano Shay, [facility] [place] [address] documented as of this encounter Procedures Procedure Name Priority Date/Time Associated Diagnosis Comments MAMMO SCREENING CAD BILATERAL Routine 05/20/2022 9:28 AM EDT documented in this encounter Results * Mammo Screening Cad Bilateral (05/20/2022 9:28 AM EDT) PT CLASS O DH RAD ADMITDTTM DH RAD PT RAD INFO [id number]^YO ADRIANA-GOMEZ^NINI DH RAD EXAM DESC MADDSC^SCREEN MAMMO BL INCLUDES CAD^RIS RAD Anatomical Region Laterality Modality Breast Bilateral [...] who have questions please contact the health animal care taker that requested your imaging first. ? Electronically signed by: Antoni Ramirez MD, [facility] ([phone]), at 05/20/2022 2:54 PM Narrative 05/20/2022 2:54 [...] areas of fibroglandular density. Procedure Note Antoni aRmirez MD - 05/20/2022 EXAMINATION: BREAST SCREEN TOMOSYNTHESIS [...] patients who have questions please contactthe health animal care taker that requested your imaging first. Nini Machado MD IMG MAMMO ORDERABLES documented in this encounter Visit Diagnoses Not on filedocumented in this encounter Care Teams Emotional Disabilities Teacher Relationship Specialty Start Date End Date Nini Machado MD [address] [address] PCP - General 06/26/10 documented as of this encounter
--- OUTSIDE RECORDS SUMMARY | 2024-08-27 00:47 | XMS_ITS | Encounter Summary ---
Author Organization [facility] Address [facility] [place] [address] Care Team Providers Care Service Transformer Repair Supervisor Name Role Phone Nini Machado MD Primary Care Provider [phone] Reason for Visit * Reason Comments Chemotherapy C4D2 Etoposide * Treatment/Therapy Plan Authorization (Routine) - Closed Specialty Diagnoses / Procedures Referred By Aldo sotelo Referred To Contact Diagnoses Small cell carcinoma of lung Juan Fitzpatrick MD [facility] [place] [address] Referral ID Status Reason Start Date Expiration Date Visits Re quested Visits Authorized [id number] Closed 06/21/2021 06/21/2022 99 99 Encounter Details Date Type Department Care Team (Late Contact Info) Description 09/25/2021 9:00 AM EST Infusion Hematology Oncology at [address] [phone] Small cell carcinoma of lung Social History [...] Sign Reading Time Taken Comments Blood Pressure 135/56 09/25/2021 8:53 AM EST Pulse 62 09/25/2021 8:53 AM EST Temperature 36.4 ??C (97.5 ??F) 09/25/2021 8:53 AM ES T Respiratory Rate 18 09/25/2021 8:53 AM EST Oxygen Saturation 99% 09/25/2021 8:53 AM EST Inhaled Oxygen Concentration - - Weight 60.1 kg (132 lb 6.4 oz) 09/25/2021 8:53 A M EST Height 165.1 cm (5' 5) 09/25/2021 8:53 AM EST Body Mass Index 22.03 09/25/2021 8:53 AM EST documented in this encounter Progress Notes * Kamilah Nichols RN - 09/25/2021 9:00 AM EST INFUSION THERAPY ADMINISTRATION NOTES DIAGNOSIS: SCLC CYCLE #:Cycle 4 Day2 Etoposide REASON FOR VISIT: to receive chemotherapy HARMONY Watts is here for Cycle 4 Day 2 etoposide. She states she feels well today, [...] was awake, alert and tolerated treatment well. She did not want to keep her PIV in for tomorrow's treatment, PIV discontinued prior to dismissal. PLAN Return to clinic tomorrow for day 3. documented in this encounter Plan of Treatment Upcoming Encounters Date Type Department Care Team (Late st Contact Info) Description 08/30/2024 2:00 PM EST Office Visit Hematology/Oncology at [address] [phone] Mars Conley MD [facility] DR HEMATOLOGY [place] [address] Cailin Marrero, [address] [place] [address] 09/07/2024 9:00 AM EST Office Visit [place] [phone] Raven Alvarado MD [facility] [place] [address] 10/04/2024 1:15 PM EST Office [place] [address] Feliciano Shay, [facility] [place] [address] documented as of this encounter Visit Diagnoses Diagnosis Small cell carcinoma of lung Malignant neoplasm of bronchus and lung, unspecified site documented in this encounter Administered Medications Inactive Administered Medications - up to 3 most recent administrations Medication Order MAR Action Action Date Dose Rate Site dexamethasone (Decadron) injection 10 mg 10 mg, Intravenous, ONCE, 1 dose, On Fri09/25/21 at 0900, Administer prior to chemotherapy Given 09/25/2021 9:28 AM EST 10 mg diphenhydrAMINE (Benadryl) (50 mg/mL) injection 25 mg 25 mg, Intravenous, ONCE, 1 dose, On Fri09/25/21 at 0900, Routine Given 09/25/2021 9:25 AM EST 25 mg etoposide (Vepesid) 165 mg in sodium chloride 0.9% Non-PVC 508.25 mL infusion 165 mg (100 mg/m2/dose ? 1.65 m2 Treatment Plan BSA from Recorded weight), Intravenous, ONCE, 1 dose, On Fri09/25/21 at 1000, Administer over 90 Minutes, Warning Vesicant/Irritant Medication New Bag 09/25/2021 10:02 AM EST 165 mg 338.8 mL/hr famotidine (Pepcid) (10 mg/mL) injection 20 mg 20 mg, Intravenous, ONCE, 1 dose, On Fri09/25/21 at 0900 Given 09/25/2021 9:26 AM EST 20 mg documented in this encounter Care Teams Service Transformer Repair Supervisor Relationship Specialty Start Date End Date Nini Machado MD [address] [place] [address] PCP - General 06/26/10 documented as of this encounter
--- OUTSIDE RECORDS SUMMARY | 2024-08-27 00:47 | XMS_ITS | Encounter Summary ---
Author Organization [facility] Address [facility] [place] [address] Care Team Providers Care Helminthologist Name Role Phone Nini Machado MD Primary Care Provider [phone] Encounter Details Date Type Department Care Team (Late st Contact Info) Description 12/18/2021 Orders [place] [address] Senthil Muller MD [facility] [place] [address] Social History Tobacco Use Types Packs/Day Years [...] PM EST Office Visit Hematology/Oncology at [address] [phone] Mars Conley MD [facility] DR [place] [address] Cailin Marrero APRN [address] [place] [address] DR HEMATOLOGY [place] [address] 09/07/2024 9:00 AM EST Office [place] [phone] Raven Alvarado MD [facility] [place] [address] 10/04/2024 1:15 PM EST Office [place] [address] Feliciano Shay, [facility] [place] [address] documented as of this encounter Visit Diagnoses Not on filedocumented in this encounter Care Teams Helminthologist Relationship Specialty Start Date End Date Marco Antonio-Nini Landrum MD [address] [address] PCP - General 06/26/10 documented as of this encounter
--- OUTSIDE RECORDS SUMMARY | 2024-08-27 00:47 | XMS_ITS | Encounter Summary ---
Author Organization [facility] Address [facility] [place] [address] Care Team Providers Care Contract Runner Name Role Phone Nini Machado MD Primary Care Provider [phone] Encounter Details Date Type Department Care Team (Late st Contact Info) Description 11/29/2021 2:45 PM EDT Office Visit Radiation Oncology at [address] [phone] Dino Siegel MD [address] [place] [address] [place] [address] Small cell carcinoma of lung [...] Sign Reading Time Taken Comments Blood Pressure 138/79 11/29/2021 2:36 PM EDT Pulse 66 11/29/2021 2:36 PM EDT Temperature 36.6 ??C (97.9 ??F) 11/29/2021 2:36 PM ED T Respiratory Rate 18 11/29/2021 2:36 PM EDT Oxygen Saturation 97% 11/29/2021 2:36 PM EDT Inhaled Oxygen Concentration - - Weight 62.1 kg (136 lb 12.8 oz) 11/29/2021 2:36 PM EDT Height 165.1 cm (5' 5) 11/29/2021 2:36 PM EDT Body Mass Index 22.76 11/29/2021 2:36 PM EDT documented in this encounter Progress Notes * Dino Siegel MD - 11/29/2021 2:45 PM EDT Images from the original note were not included. [facility] Medicine Radiation Oncology Radiation Oncology On-treatment Visit Patient Identity: Patient name: Stefanie Pina Date of : 1955 Chief complaint: Limited stage small cell lung cancer Oncologic History: Stefanie Pina is a 65 y.o. female who completed initial treatment for limited stage small cell lung cancer in 09/26/2021. Restaging indicated excellent response and no new brain metastases. She is receiving SHARIF-PCI. Treatment: Intent: Prophylactic Site: Brain Prescription: 25 Gy in 10 fractions Technique: VMAT Concurrent chemotherapy: no Treatment Plan Images: Treatment Progress: Plan ID Energy Fractions Dose per Fraction (cGy) Dose Correction (cGy) Total Dose Delivered (cGy) Elapsed Days SHARIF-WBRT 10X / 250 0 2,250 9 Setup films checked and approved. Clinical Course: Interval History: OTV2 Nausea has resolved with decadron. She completes tomorrow. OTV1: She is doing well. No significant headache. She is having nausea nearly every day and taking compazine BID; even with this she still feels nauseated through the day. Energy has been good; todayshe notices some fatigue. Minor leg cramps at night. She is taking memantine as Rx'd. Exam: Patient Vitals for the past 24 hrs: Temp Pulse Resp BP SpO2 11/29/21 1436 36.6 ??C (97.9 ??F) 66 18 138/79 97 % Comfortable, NAD NCAT Impression/Plan: Impression: Tolerating treatment. Plan: ?? Continue radiation therapy as planned. ?? Cont dexamethasone 2 mg daily for nausea. may also continue to use compazine PRN ?? Memantine x 6 months ?? RV per Fang Muller and Yael (notified via EMR) No orders of the defined types were placed in this encounter. ??? National Cancer [place] (NCI) Comprehensive Cancer Center ??? [employer] Commission on Cancer (ACS Kendra) Accredited Cancer Program ??? [employer] (ACR) Accredited Radiation Oncology Program documented in this encounter Plan of Treatment Upcoming Encounters Date Type Department Care Team (Late st Contact Info) Description 08/30/2024 2:00 PM EST Office Visit Hematology/Oncology at [address] [phone] Mars Conley MD [facility] DR HEMATOLOGY [place] [address] Cailin Marrero [address] [place] [address] 09/07/2024 9:00 AM EST Office Visit [place] [phone] Raven Alvarado MD [facility] [place] [address] 10/04/2024 1:15 PM EST Office [place] [phone] Feliciano Shay, [facility] [place] [address] documented as of this encounter Visit Diagnoses Diagnosis Small cell carcinoma of lung Malignant neoplasm of bronchus and lung, unspecified site documented in this encounter Care Teams Contract Runner Relationship Specialty Start Date End Date Marco Antonio-Nini Landrum MD [address] [address] PCP - General 06/26/10 documented as of this encounter
--- OUTSIDE RECORDS SUMMARY | 2024-08-27 00:47 | XMS_ITS | Encounter Summary ---
Author Organization [facility] Address [facility] [place] [address] Care Team Providers Care Mixing And Dispensing Supervisor Name Role Phone Nini Machado MD Primary Care Provider Encounter Details Date Type Department Care Team (Late st Contact Info) Description 01/02/2022 2:00 PM EDT Office Visit [place] [address] Senthil Muller MD [facility] [place] [address] Small cell carcinoma of lung Social History [...] Sign Reading Time Taken Comments Blood Pressure 141/61 01/02/2022 1:43 PM EDT Pulse 63 01/02/2022 1:43 PM EDT Temperature 37.1 ??C (98.7 ??F) 01/02/2022 1 :43 PM EDT Respiratory Rate 18 01/02/2022 1:43 PM EDT Oxygen Saturation 97% 01/02/2022 1:4 3 PM EDT Inhaled Oxygen Concentration - - Weight 63.7 kg (140 lb 6.4 oz) 01/02/2022 1:43 PM EDT Shoes on and fully clothed Height - - Body Mass Index 23.36 11/29/2021 2:36 PM EDT documented in this encounter Progress Notes * Senthil Muller MD - 01/02/2022 2:00 PM EDT Images from the original note were not included. [facility] Medicine Radiation Oncology Radiation Oncology Follow Up Visit Patient Identity: Patient name: Stefanie Pina Date of : 1955 Chief complaint: Limited stage small cell lung cancer ? Post-radiation oral mucositis Referring: Nini Machado MD [address] [place] [address], [place] [address] History: Oncologic History: 09/2021 Diagnosed and treated for limited stage small cell lung cancer (carboplatin/SECTION HAND HELPER-16 with 45 GyBID thoracic radiation therapy) 11/2021 Prophylactic cranial RT (25Gy in 10 fractions) Interval History: Seen today at her request for FU. A couple of weeks ago (~2 weeks after completion of her PCI) she started to have mouth pain (upper anterior gingiva and hard palate). She was treated with a course of antibiotics. Symptoms are improving somewhat. Of note, she does not have upper dentures and does note occasionally digging her lower teeth into her upper gingiva. She did have a CT face that only partially imaged her palate. I have personally reviewed the imaging studies referenced above. Exam: Patient Vitals for the past 24 hrs: Temp Pulse Resp BP SpO2 01/02/22 1343 37.1 ??C (98.7 ??F) 63 18 141/61 97 % Comfortable, NAD No oral mucositis, no pharyngeal mucositis Small fissure on upper/atnerior gingiva, anterior hard palate is erythematous, slightly edematous, no blisters, no errosions, no plaques Oral tongue normal No palpable neck LNs KPS ECOG Definition [] 90-100 0 Fully [...] bed or chair Summary/Recommendations: Impression: Stefanie is ~1 month s/p completion of PCI following curative treatment of small cell lung cancer. A couple of weeks ago she started to have oral discomfort. Today we examined her and re-examined her treatment plan. Her anterior hard palate only got scatter doses, so the likelihood that this is a radiation effect is very small. Also even if it was radiation effect, the dose was low enough, and therehas been enough time that she should have healed. Other considerations: viral syndrome, or maybe traumatic due to her lower teeth abrading or puncturing her upper gingiva. Happily the symptoms are improving. Plan: 1. Medrol pack to cover possible post-herpetic type viral infection (no blisters, but I did not seethe area initially so there may have been more typical viral changes initially) 2. Viscous lidocaine: apply topically for comfort 3. Suggested a mouth guard especially for night-time to prevent any contact of lower teeth with upper gingiva. 4. FU MRI brain ordered and to be scheduled ~2-3 months time for routine follow up for her small cell lung cancer. Thank you for allowing me to participate in the care of Stefanie Pina. Senthil Muller MD New Orders: No orders of the defined types were placed in this encounter. ??? National Cancer [place] (NCI) Comprehensive Cancer Center ??? [employer] Commission on Cancer (ACS Kendra) Accredited Cancer Program ??? [employer] (ACR) Accredited Radiation Oncology Program documented in this encounter Plan of Treatment Upcoming Encounters Date Type Department Care Team (Late st Contact Info) Description 08/30/2024 2:00 PM EST Office Visit Hematology/Oncology at [address] [phone] Mars Conley MD [facility] DR [place] [address] Cailin Marrero APRN [address] [place] [address] DR [place]EM[place]Y [place] [address] 09/07/2024 9:00 AM EST Office [place] [address] Raven Alvarado MD [facility] [place] [address] 10/04/2024 1:15 PM EST Office [place] [address] Feliciano Shay, [facility] [place] [address] documented as of this encounter Visit Diagnoses Diagnosis Small cell carcinoma of lung Malignant neoplasm of bronchus and lung, unspecified site documented in this encounter Care Teams Mixing And Dispensing Supervisor Relationship Specialty Start Date End Date Marco Antonio-Nini Landrum MD [address] [address] PCP - General 06/26/10 documented as of this encounter
--- OUTSIDE RECORDS SUMMARY | 2024-08-27 00:47 | XMS_ITS | Encounter Summary ---
Author Organization [facility] [place] [address] Care Team Providers Care Revising Clerk Name Role Phone Nini Machado MD Primary Care Provider [phone] Encounter Details Date Type Department Care Team (Late st Contact Info) Description 12/28/2021 Telephone [place] [phone] Mae Bojorquez, RN Social History Tobacco Use Types Packs/Day Years [...] encounter Miscellaneous Notes * Telephone Encounter - Mae Bojorquez RN - 12/28/2021 11:15 AM EDT Spoke with patient. She states that the top roof of her palate is still sore, little red and puffy.She states frustrations about not finding out what's causing it and unresolved with the abx prescribed by Dr. Muller. She states that she can't eat, food/water don't taste good, she's losing wt., she has dry heaves and nausea every now and then, takes compazine which sometimes helps. Patient thinks the namenda is causing all these s/e. Informed that the listed s/e of namenda are confusion, dizziness, h/a, diarrhea or constipation. She states having constipation but she's able to move her bowels otherwise she denies having those other sx. Patient wants to see Dr. Muller and she's willing to trave nelson to [place] to see him. Consulted with Dr. Motley, per her above sx are not r/t the xrt received as previously mentioned in this technical publications writer note in 12/13/21 but go ahead and schedule for f/u on Friday. She's on the schedule for the said date. ----- Message from Lana Spear sent at 12/28/2021 8:45 AM EDT ----- Regarding: GR PT- MEDICATION SIDE EFFECT Stefanie called this morning with concerns of a medication side effect vs radiation side effect. She has been experiencing dry heaves, loss of appetite and a swollen plate for several weeks now. Dr. Muller prescribed her memantine (Namenda) 10 mg Tablet recently and her PCP is questioning a medication r eaction. Flakita recently had a ct scan at [facility] of her sinus cavity to rule out sinus issues but had no findings. The images and report are in epic to review if needed. Stefanie would appreciate a call back to discuss when time allows at . Thank you, Lana documented in this encounter Plan of Treatment Upcoming Encounters Date Type Department Care Team (Late st Contact Info) Description 08/30/2024 2:00 PM EST Office Visit Hematology/Oncology at [address] [phone] Mars Conley MD [facility] DR [place] [address] Cailin Marrero APRN [address] [place] [address] DR HEMATOLOGY AND ONCOLOGY [place], [place] [id number] 09/07/2024 9:00 AM EST Office Visit [place] [phone] Raven Alvaraod MD [facility] [place] [address] 10/04/2024 1:15 PM EST Office [place] [address] Feliciano Shay, [facility] [place] [address] documented as of this encounter Visit Diagnoses Not on filedocumented in this encounter Care Teams Revising Clerk Relationship Specialty Start Date End Date Nini Machado MD 79 [facility] 3 [place] [address] PCP - General 06/26/10 documented as of this encounter
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
--- OUTSIDE RECORDS SUMMARY | 2024-08-27 00:48 | XMS_ITS | Encounter Summary ---
Author Organization [facility] Address [facility] [place] [address] Care Team Providers Care Marble Installer Name Role Phone Nini Machado MD Primary Care Provider [phone] Reason for Visit * Reason Comments Chemotherapy Cycle 2 Day 3 Etopos mary lou * Treatment/Therapy Plan Authorization (Routine) - Closed Specialty Diagnoses / Procedures Referred By Aldo t Referred To Contact Diagnoses Small cell carcinoma of lung Juan Fitzpatrick MD [facility] [place] [address] Referral ID Status Reason Start Date Expiration Date Visits Re quested Visits Authorized [id number] Closed 06/21/2021 06/21/2022 99 99 Encounter Details Date Type Department Care Team (Late st Contact Info) Description 08/08/2021 12:30 PM EST Infusion Hematology Oncology at [address] [phone] Small cell carcinoma of lung Social History [...] as of this encounter Progress Notes * Savanah Meehan RN - 08/08/2021 12:30 PM EST INFUSION THERAPY ADMINISTRATION NOTES DIAGNOSIS: SCLC CYCLE #:Cycle 2 Day 3 REASON FOR VISIT:Etoposide SUBJECTIVE Stefanie states she feels well today. OBJECTIVE LAB DATA: 08/06/20 WBC:5.28 RBC: 3.86 Plt 293 ANC: 3.31 BUN:19 Cr:0.9 IV ACCESS: PIV Pre administration: Chemotherapy orders independently verified for drug name, route, and dosage per patient's height, weight and BSA by Felix RICK & pharmacist on-site REACTIONS (DESCRIPTION, TIME, INTERVENTION AND EFFECTIVENESS) none ASSESSMENT Flakita was awake, alert and tolerated treatment well. PLAN Return to clinic as scheduled. documented in this encounter Plan of Treatment Upcoming Encounters Date Type Department Care Team (Late st Contact Info) Description 08/30/2024 2:00 PM EST Office Visit Hematology/Oncology at [address] [phone] Mars Conley MD [facility] DR [place] [address] Cailin Marrero APRN [address] [place] [address] DR HEMATOLOGY AND ONCOLOGY [place], [place] [id number] 09/07/2024 9:00 AM EST Office [place] [phone] Raven Alvarado MD [facility] [place] [address] 10/04/2024 1:15 PM EST [place] [phone] Feliciano Shay, [facility] [place] [address] documented as of this encounter Visit Diagnoses Diagnosis Small cell carcinoma of lung Malignant neoplasm of bronchus and lung, unspecified site documented in this encounter Administered Medications Inactive Administered Medications - up to 3 most recent administrations Medication Order MAR Action Action Date Dose Rate Site dexamethasone (Decadron) injection 10 mg 10 mg, Intravenous, ONCE, 1 dose, On Fri08/08/21 at 1230, Administer prior to chemotherapy Given 08/08/2021 11:45 AM EST 10 mg diphenhydrAMINE (Benadryl) (50 mg/mL) injection 25 mg 25 mg, Intravenous, ONCE, 1 dose, On Fri08/08/21 at 1230, Routine Given 08/08/2021 11:41 AM EST 25 mg etoposide (Vepesid) 165 mg in sodium chloride 0.9% Non-PVC 508.25 mL infusion 165 mg (100 mg/m2/dose ? 1.65 m2 Treatment Plan BSA from Recorded weight), Intravenous, ONCE, 1 dose, On Fri08/08/21 at 1330, Administer over 90 Minutes, Warning Vesicant/Irritant Medication New Bag 08/08/2021 12:31 PM EST 165 mg 338.8 mL/hr famotidine (Pepcid) (10 mg/mL) injection 20 mg 20 mg, Intravenous, ONCE, 1 dose, On Fri08/08/21 at 1230 Given 08/08/2021 11:43 AM EST 20 mg documented in this encounter Care Teams Marble Installer Relationship Specialty Start Date End Date Marco Antonio-Nini Landrum MD [address] [address] PCP - General 06/26/10 documented as of this encounter
--- OUTSIDE RECORDS SUMMARY | 2024-08-27 00:48 | XMS_ITS | Encounter Summary ---
Author Organization [facility] Address [facility] [place] [address] Care Team Providers Care Lpn Rn Name Role Phone Nini Machado MD Primary Care Provider [phone] Encounter Details Date Type Department Care Team (Late st Contact Info) Description 08/06/2021 Notes Only Hematology/Oncology at [address] [phone] Nancy Parks, BRUSHER OPERATOR OFFICE OF CARE MANAGEMENT Social History Tobacco [...] place to sleep or slept in a snf (including now)? No 06/20/2021 Sex and Gender Information Value Date Recorded Sex Assigned at Not on file Gender Identity Not on file Sexual Orientation Not on file documented as of this encounter Progress Notes * Nancy Parks, BRUSHER OPERATOR - 08/06/2021 12:22 PM EST Reason for Referral: Brief assessment of social and emotional needs. Met with during her infusion visit today to introduce myself and role of professor of social work to assess/address barriers to getting to and through treatments; address support needs and connect with community services and resources as needed. Met pt's primary support María. Reviewed notes from BETSY Ryan, ADMINISTRATIVE SUPPORT MANAGER, CCM/SW Family/Social Supports: Pt indicated her primary support is her sister in law María. María stays with pt Friday through Friday to assist her as needed. Pt identified her ex- Jae as another primary support. Living Situation/Daily Activities/Transportation: Pt, her ex- Jae and her sister in law María (M - F) are living together. Pt's sister in law assists pt with daily activities, shopping, transportation. Jae does the daily chores, Meals and outdoor chores. Pt indicated she manages her own personal care and her own activities. Pt's sister in law transport pt with pt's vehicle. Pt asking for gas cards. Assisted her with 1/$50 gas card from the [facility]. Suggested pt contact her insurance - [employer] and sign up for mileage reimbursement. Gave this information to both pt and her sister in law. Work/Finances/Insurance: Pt indicated she is disabled. She has income from SSDI and SSI of ~ $800. Pt has Medicare and [employer] for insurance. Utilization of Community Resources: Food stamps and Fuel assistance. Adjustment to Illness/Mental Health Concerns: Pt indicated she is coping the best she can. She has better days than others. She is coming in for concurrent treatments with BID RT. She feels supportedby her ex- and sister in law. Identified Needs: Assistance with transportation costs Referrals: suggested she contact [employer] for mileage reimbursement Social Work Interventions: Brief assessment Supportive Counseling Financial resources Transportation resources Plan: Informed pt of BRUSHER OPERATOR availability and contact information. Will follow to assess/address psychosocial needs. BETSY Hunter, ADMINISTRATIVE SUPPORT MANAGER, OSW-C Avionics Engineer [facility] documented in this encounter Plan of Treatment Upcoming Encounters Date Type Department Care Team (Late st Contact Info) Description 08/30/2024 2:00 PM EST Office Visit Hematology/Oncology at [address] [phone] Mars Conley MD [facility] DR HEMATOLOGY [place] [address] Cailin Marrero APRN [address] [place] [address] DR [place] [address] 09/07/2024 9:00 AM EST Office [place] [phone] Raven Alvarado MD [facility] [place] [address] 10/04/2024 1:15 PM EST Office [place] [phone] Feliciano Shay, [facility] [place] [address] documented as of this encounter Visit Diagnoses Not on filedocumented in this encounter Care Teams Lpn Rn Relationship Specialty Start Date End Date Marco Antonio-Nini Landrum MD [address] [address] PCP - General 06/26/10 documented as of this encounter
--- OUTSIDE RECORDS SUMMARY | 2024-08-27 00:48 | XMS_ITS | Encounter Summary ---
Author Organization [facility] Address [facility] [place] [address] Care Team Providers Care Network Design Architect Name Role Phone Nini Machado MD Primary Care Provider [phone] Encounter Details Date Type Department Care Team (Late st Contact Info) Description 09/14/2021 Telephone Radiation Oncology at [address] [phone] Rhoda Torres, RN Social History Tobacco Use Types Packs/Day [...] encounter Miscellaneous Notes * Telephone Encounter - Rhoda Torres RN - 09/14/2021 2:39 PM EST Radiation Oncology Nurse Telephone Note [place], [place] Call to patient to follow up on esophagitis. See 09/12/21 note. Patient states she is much better. She is taking BMX QID Before each meal ( eating small freq meals) and Carafate QID after meals. She is sticking to the soft bland foods: puddings, cream of wheat. Drinking tea with honey. She confirmed taking Prilosec daily and she checks her temp often. She never runs a fever.it's usually 97.8- 98 F. She grades pain with swallowing a 2/10 and is feeling much better today. I asked her to look in her mouth and back of throat for evidence of thrush/white patches. She states she does not see anything. She did have treatment for thrush and has a bottle of nystatin swish and swallow that was prescribed 07/2021 that is 1/[address] Muller was notified via [employer]. He recommended that she continue with symptomatic treatment with BMX, Carafate and soft diet. Called patient back with this information . Instructed pt to call clinic if symptoms get worse or if she develops any new concerning symptoms. For Weekend/Holiday coverage while our clinic is closed, the patient was instructed to call [facility] [phone] and ask for the gas collection system operator radiation oncologist. Patient verbalized understanding. Plan: appointment with Dr Conley 09/17 929, followed by chemo and also seeing optical glass etcher documented in this encounter Plan of Treatment Upcoming Encounters Date Type Department Care Team (Late st Contact Info) Description 08/30/2024 2:00 PM EST Office Visit Hematology/Oncology at [address] [phone] Mars Conley MD [facility] DR HEMATOLOGY [place] [address] Cailin Marrero APRN [address] [place] [address] DR [place] [address] 09/07/2024 9:00 AM EST Office [place] [phone] Raven Alvarado MD [facility] [place] [address] 10/04/2024 1:15 PM EST [place] [phone] Feliciano Shay, [facility] [place] [address] documented as of this encounter Visit Diagnoses Not on filedocumented in this encounter Care Teams Network Design Architect Relationship Specialty Start Date End Date Marco Antonio-Nini Landrum MD [address] [place] [address] [address] [place] [address] PCP - General 06/26/10 documented as of this encounter
--- OUTSIDE RECORDS SUMMARY | 2024-08-27 00:48 | XMS_ITS | Encounter Summary ---
Author Organization [facility] Address [facility] [place] [address] Care Team Providers Care Director Automotive Name Role Phone Nini Machado MD Primary Care Provider [phone] Encounter Details Date Type Department Care Team (Late st Contact Info) Description 08/10/2021 9:30 AM EST Office Visit Radiation Oncology at [address] [phone] Jorge Siegel MD [address] [place] [address] [place] [address] Small cell carcinoma of lung [...] Sign Reading Time Taken Comments Blood Pressure 144/69 08/10/2021 9:14 AM EST Pulse 69 08/10/2021 9:14 AM EST Temperature 36.6 ??C (97.9 ??F) 08/10/2021 9:14 AM ES T Respiratory Rate 20 08/10/2021 9:14 AM EST Oxygen Saturation 100% 08/10/2021 9:14 AM EST Inhaled Oxygen Concentration - - Weight 58.9 kg (129 lb 12.8 oz) 08/10/2021 9:14 AM EST Height 166.4 cm (5' 5.51) 08/10/2021 9:14 AM ES T Body Mass Index 21.26 08/10/2021 9:14 AM EST documented in this encounter Progress Notes * Jorge Siegel MD - 08/10/2021 9:30 AM EST Images from the original note were not included. RADIATION ONCOLOGY - Weekly On Treatment Visit Note 08/10/21 JORGE SIEGEL MD Radiation Oncology [facility] [phone] (paging squaring machine operator) Pager #[phone] PATIENT IDENTIFICATION Name Stefanie Pina Date of 1955 PCP Nini Machado MD Referring MD (if different) Dr. 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 She is receiving definitive chemoradiation on clinical trial NRG ABBI 005. RADIOTHERAPY DETAILS Treatment Intent: Definitive (Curative) Concurrent Therapy: Carbo/etop (from Dr Conley) Treatment Site Right hilum / mediastinum Prescribed Dose 45 Gy in 30 fractions BID Current Dose: 13.5 Gy in 9 fractions Research Greenhouse Supervisor Piña from Current Plan (minimum 45 Gy isodose volume shown): INTERVAL HISTORY General: Overall feels fair. Chest: No new cough or SOB +Esophagitis with cold or spicy foods. No pain at rest. Stable since last seen on . She has BMXand carafate but not yet taking them. Pain: Pain score today is 5/10 with swallowing. Nutrition: Weight at start of therapy 132lbs --> 129lbs today. Eating normal diet. RD Stephanie Page following. MEDS Medications 08/10/21 1304 Medication Sig Taking? sertraline (Zoloft) 50 mg Tablet Take 50 mg by mouth daily. Yes sucralfate (Carafate) 1 gram Tablet Dissolve 1 tablet in 1-2 teaspoons of water and take after meals to help with swallowing pain. Yes lactobacillus rhamnosus, GG, (CULTURELLE) 10 billion cell Capsule Take 1 capsule by mouth daily. Yes omeprazole (PriLOSEC) 20 mg Capsule, Delayed Release(E.C.) Take 1 capsule by mouth daily. Yes pravastatin (Pravachol) 20 mg Tablet take 1 tablet by mouth once daily for cholesterol Yes diphenhydrAMINE/aluminum-magnesium hydroxide with simethicone/lidocaine (BMX) (6.67 mg-0.83 mg-13.33 mg-1.33 mg/mL) oral liquid Take as needed for swallowing pain up to 5x/day. Patient not taking: Reported on 08/10/2021 prochlorperazine (Compazine) 10 mg Tablet Take 1 tablet by mouth every 6 hours as needed for Nausea. Patient not taking: Reported on 07/30/2021 Ventolin HFA 90 mcg/actuation HFA Aerosol Inhaler inhale 2 puffs USING INHALER EVERY 4 HOURS NEEDED estradioL (Estrace) 0.01 % (0.1 mg/gram) Cream ESTRACE 0.1 MG/GM CREA EPINEPHrine (EpiPen) 0.3 mg/0.3 mL Auto-Injector EPIPEN 2-GIOVANNA 0.3 MG/0.3ML SOAJ albuteroL (Proventil) 2.5 mg /3 mL (0.083 %) Solution for Nebulization ALBUTEROL SULFATE (2.5 MG/3ML) 0.083% NEBU montelukast (Singulair) 10 mg Tablet daily. calcium carbonate (CALCIUM 500 ORAL) Take by mouth. baclofen (LIORESAL) 10 mg tablet IMAGING / LABS: I have personally reviewed this patient's interval portal imaging to confirm accurate positioning and alignment which matches the patient's original approved treatment planning images. EXAM: BP 144/69 (Patient Position: Sitting) Pulse 69 Temp 36.6 ??C (97.9 ??F) (Temporal) Resp 20 Ht 166.4 cm (5' 5.51) Wt 58.9 kg (129 lb 12.8 oz) SpO2 100% BMI 21.26 kg/m?? Constitutional: she appears well-developed and well-nourished. No distress. Performance Status: KPS Score ECOG Grade Definition 90-100 0 Fully active, able to carry on all pre-disease performance without restriction X 70-80 1 Restricted in physically strenuous activity but ambulatory and able to carry out work of a light or sedentary nature, e.g., light house work, office work 50-60 2 Ambulatory and capable of all selfcare but unable to carry out any work activities; up and about more than 50% of waking hours 30-40 3 Capable of only limited selfcare; confined to bed or chair more than 50% of waking hours 10-20 4 Completely disabled; cannot carry on any selfcare; totally confined to bed or chair ASSESSMENT / PLAN Tolerance to radiotherapy: Tolerating as anticipated. Continue as planned. Esophagitis: BMX/carafate prn. RD following. Followup: RTC for on-treatment assessment next week. documented in this encounter Plan of Treatment Upcoming Encounters Date Type Department Care Team (Late st Contact Info) Description 08/30/2024 2:00 PM EST Office Visit Hematology/Oncology at [address] [phone] Mars Conley MD [facility] DR HEMATOLOGY [place] [address] Cailin Marrero APRN [address] [place] [address] DR HEMATOLOGY AND ONCOLOGY [place], [place] [address] 09/07/2024 9:00 AM EST Office [place] [phone] Raven Alvarado MD [facility] [place] [address] 10/04/2024 1:15 PM EST Office Visit Neurology at [place] [phone] Feliciano Shay, [facility] [place] [address] documented as of this encounter Visit Diagnoses Diagnosis Small cell carcinoma of lung Malignant neoplasm of bronchus and lung, unspecified site documented in this encounter Care Teams Director Automotive Relationship Specialty Start Date End Date Marco Antonio-Nini Landrum MD [address] [address] PCP - General 06/26/10 documented as of this encounter
--- OUTSIDE RECORDS SUMMARY | 2024-08-27 00:48 | XMS_ITS | Encounter Summary ---
Author Organization [facility] Address [facility] [place] [address] Care Team Providers Care Clinical Practice Consultant Name Role Phone Nini Machado MD Primary Care Provider Encounter Details Date Type Department Care Team (Late st Contact Info) Description 08/08/2021 9:45 AM EST Office Visit Radiation Oncology at [address] [phone] Jorge Siegel MD [address] [place] [address] [place] [address] Small cell carcinoma of lung [...] Sign Reading Time Taken Comments Blood Pressure 123/61 08/08/2021 9:53 AM EST Pulse 56 08/08/2021 9:53 AM EST Temperature 36.7 ??C (98.1 ??F) 08/08/2021 9:53 AM ES T Respiratory Rate 16 08/08/2021 9:53 AM EST Oxygen Saturation 100% 08/08/2021 9:53 AM EST Inhaled Oxygen Concentration - - Weight 60.1 kg (132 lb 9.6 oz) 08/08/2021 9:53 A M EST Height 166.4 cm (5' 5.51) 08/08/2021 9:53 AM ES T Body Mass Index 21.72 08/08/2021 9:53 AM EST documented in this encounter Patient Instructions * Patient Instructions* Jorge Siegel MD - 08/08/2021 9:45 AM EST Heartburn (Esophagitis) Instructions: Keep taking your antacid pill (OMEPRAZOLE) that you should take once a day in the morning on an empty stomach, about 30 minutes prior to any meals. We are sending 2 medications to your pharmacy to help with these symptoms. 1) CARAFATE which is a thick liquid that helps to coat the esophagus. This should be taken after eating. You dissolve the tablet in 1-2 tablespoons of water. 2) A cocktail of 3 liquids called BMX: the B stands for Benadryl, M for Maalox, and X for Xylocaine(which is similar to novocaine - the numbing medication your dentist uses). The BMX can be taken upto 4-5 times a day as you need typically BEFORE eating. It does not last too long (about 10-15 minutes or so). documented in this encounter Progress Notes * Jorge Siegel MD - 08/08/2021 9:45 AM EST Images from the original note were not included. RADIATION ONCOLOGY - Weekly On Treatment Visit Note 08/08/21 JORGE SIEGEL MD Radiation Oncology [facility] [phone] (paging waste treatment operator) Pager #[phone] PATIENT IDENTIFICATION Name Stefanie Pina Date of [...] Gy in 30 fractions BID Current Dose: 7.5 Gy in 5 fractions Dyslexia Teacher Piña from Current Plan (minimum 45 Gy isodose volume shown): INTERVAL HISTORY General: Overall feels fair. Started this week. Chest: No new cough or SOB +Esophagitis with cold or spicy foods. No pain at rest. Pain: Pain score today is 5/10 with swallowing. Nutrition: Weight today at start of therapy is 132lbs. Eating normal diet. She has not met with RD but will require assistance for supplements/shakes. MEDS Medications 08/08/21 8957 Medication Sig Taking? lactobacillus rhamnosus, GG, (CULTURELLE) 10 billion cell Capsule Take 1 capsule by mouth daily. Yes nystatin (Mycostatin) 100,000 unit/mL Suspension Take 5 mLs by mouth 4 times daily. Yes omeprazole (PriLOSEC) 20 mg Capsule, Delayed Release(E.C.) Take 1 capsule by mouth daily. Yes Ventolin HFA 90 mcg/actuation HFA Aerosol Inhaler inhale 2 puffs USING INHALER EVERY 4 HOURS NEEDED Yes salmeteroL (Serevent Diskus) 50 mcg/dose Disk with Device SEREVENT DISKUS 50 MCG/DOSE AEPB Yes estradioL (Estrace) 0.01 % (0.1 mg/gram) Cream ESTRACE 0.1 MG/GM CREA Yes EPINEPHrine (EpiPen) 0.3 mg/0.3 mL Auto-Injector EPIPEN 2-GIOVANNA 0.3 MG/0.3ML SOAJ Yes triamcinolone (Kenalog) 0.1 % Ointment TRIAMCINOLONE ACETONIDE 0.1 % OINT Yes predniSONE (Deltasone) 20 mg Tablet TAKE 3 TABLETS BY MOUTH DAILY FOR 3 DAY Yes pravastatin (Pravachol) 20 mg Tablet take 1 tablet by mouth once daily for cholesterol Yes fluticasone propionate (Flonase) 50 mcg/actuation [place], Suspension FLUTICASONE PROPIONATE 50 MCG/ACT SUSP Yes cholecalciferol, Vitamin D3, 25 mcg (1,000 unit) Capsule daily. Yes rOPINIRole (REQUIP) 0.5 mg Tablet take 1 tablet by mouth daily Yes albuteroL (Proventil) 2.5 mg /3 mL (0.083 %) Solution for Nebulization ALBUTEROL SULFATE (2.5 MG/3ML) 0.083% NEBU Yes calcium carbonate (CALCIUM 500 ORAL) Take by mouth. Yes fluticasone-salmeterol (ADVAIR DISKUS) 500-50 mcg/dose diskus inhaler Yes chlorproMAZINE (THORAZINE) 100 mg tablet Yes prochlorperazine (Compazine) 10 mg Tablet Take 1 tablet by mouth every 6 hours as needed for Nausea. Patient not taking: Reported on 07/30/2021 nicotine polacrilex (Commit) 4 mg Lozenge SUCK ON 1 LOZENGE BY MOUTH UP TO EVERY 2 HOURS WHILE AWAKE NEEDED FOR SMOKING CESSATION montelukast (Singulair) 10 mg Tablet daily. IPRATROPIUM/ALBUTEROL SULFATE (IPRATROPIUM-ALBUTEROL INHL) Mometasone (NASONEX) 50 mcg/Actuation Foyil zafirlukast (ACCOLATE) 20 mg tablet baclofen (LIORESAL) 10 mg tablet lovastatin (MEVACOR) 20 mg tablet esomeprazole (NEXIUM) 40 mg capsule clonAZEpam (KLONOPIN) 0.5 mg tablet NORTRIPTYLINE HCL (NORTRIPTYLINE ORAL) IMAGING / LABS: I have personally reviewed this patient's interval portal imaging to confirm accurate positioning and alignment which matches the patient's original approved treatment planning images. EXAM: BP 123/61 (Patient Position: Sitting) Pulse 56 Temp 36.7 ??C (98.1 ??F) (Temporal) Resp 16 Ht 166.4 cm (5' 5.51) Wt 60.1 kg (132 lb 9.6 oz) SpO2 100% BMI 21.72 kg/m?? Constitutional: she appears well-developed and well-nourished. [...] as anticipated. Continue as planned. Esophagitis: BMX/carafate rx to pharmacy Diet instructions provided Will t/b w IVAN Brown Page as well to follow patient. Followup: RTC for on-treatment assessment next week. documented in this encounter Plan of Treatment Upcoming Encounters Date Type Department Care Team (Late st Contact Info) Description 08/30/2024 2:00 PM EST Office Visit Hematology/Oncology at [address] [phone] Mars Conley MD [facility] [place] [address] Cailin Marrero APRN [address] [place] [address] DR [place] [address] 09/07/2024 9:00 AM EST Office [place] [phone] Raven Alvarado MD [facility] [place] [address] 10/04/2024 1:15 PM EST [place] [phone] Feliciano Shay, [facility] [place] [address] documented as of this encounter Visit Diagnoses Diagnosis Small cell carcinoma of lung Malignant neoplasm of bronchus and lung, unspecified site documented in this encounter Care Teams Clinical Practice Consultant Relationship Specialty Start Date End Date Marco Antonio-Nini Landrum MD [address] [place] [address] PCP - General 06/26/10 documented as of this encounter
--- OUTSIDE RECORDS SUMMARY | 2024-08-27 00:48 | XMS_ITS | Encounter Summary ---
Author Organization [facility] Address [facility] [place] [address] Care Team Providers Care Artificial Limb Maker Name Role Phone Nini Machado MD Primary Care Provider [phone] Encounter Details Date Type Department Care Team (Late st Contact Info) Description 09/12/2021 Telephone Radiation Oncology at [address] [phone] Rhoda Torres, RN Social History [...] Telephone Encounter - Rhoda Torres RN - 09/12/2021 4:59 PM EST Radiation Oncology Nurse Telephone Note [facility] [place], [place] 4:51-5:03 PM Background information: 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 Patient calls c/o pain mid chest between breast when she swallows. She states this improved for awhile after txs and she didn't need the BMX or carafate , but about 5days ago she had a gagging episode and then the pain has returned. It comes and goes. Swallowing water is not painful, but some foods are 6/10. She once again attributes pain when she had gagging reflex after eating a bologna sandwich. She didnot vomit the contents of the sandwich; just phlegm. But she felt she over-ate because it tasted sogood, but it made her vomit. She denies h/o heart problems, no numbness in jaw or arms. She does not lives a lone, her ex- lives with her. Intervention: instructed to return to soft bland diet and carafate QID and BMX prior to meals. Callclinic if symptoms persist or get worst or if she develops any new concerning symptoms. For coverage while our clinic is closed, the patient was instructed to call [facility] at [phone] and ask for the director information security radiation oncologist if she needs anything. Patient verbalized understanding. documented in this encounter Plan of Treatment Upcoming Encounters Date Type Department Care Team (Late st Contact Info) Description 08/30/2024 2:00 PM EST Office Visit Hematology/Oncology at [address] [phone] Mars Conley MD [facility] DR HEMATOLOGY [place] [address] Cailin Marrero APRN [address] [place] [address] DR HEMATOLOGY AND ONCOLOGY [place], [place] [address] 09/07/2024 9:00 AM EST Office [place] [phone] Raven Alvarado MD [facility] [place] [place] [address] 10/04/2024 1:15 PM EST Office Visit Neurology at [place] [phone] Feliciano Shay, [facility] [place] [address] documented as of this encounter Visit Diagnoses Not on filedocumented in this encounter Care Teams Artificial Limb Maker Relationship Specialty Start Date End Date Marco Antonio-Nini Landrum MD [address] [place] [address] PCP - General 06/26/10 documented as of this encounter
--- OUTSIDE RECORDS SUMMARY | 2024-08-27 00:48 | XMS_ITS | Encounter Summary ---
Author Organization [facility] Address [facility] [place] [address] Care Team Providers Care Design Painter Name Role Phone Nini Machado MD Primary Care Provider [phone] Encounter Details Date Type Department Care Team (Late st Contact Info) Description 09/18/2021 Orders [place] [address] Senthil Muller MD [facility] [place] [address] Small cell carcinoma of lung Social History [...] 2:00 PM EST Office Visit Hematology/Oncology at [address] [phone] Mars Conley MD [facility] [place] [address] Cailin Marrero APRN [address] [place] [address] DR [place] [address] 09/07/2024 9:00 AM EST Office [place] [phone] Raven Alvarado MD [facility] [place] [address] 10/04/2024 1:15 PM EST [place] [phone] Feliciano Shay, [facility] [place] [address] documented as of this encounter Visit Diagnoses Diagnosis Small cell carcinoma of lung Malignant neoplasm of bronchus and lung, unspecified site documented in this encounter Care Teams Design Painter Relationship Specialty Start Date End Date Marco Antonio-Nini Landrum MD [address] [address] PCP - General 06/26/10 documented as of this encounter
--- OUTSIDE RECORDS SUMMARY | 2024-08-27 00:48 | XMS_ITS | Encounter Summary ---
Author Organization [facility] Address [facility] [place] [address] Care Team Providers Care Signs And Displays Salesperson Name Role Phone Nini Machado MD Primary Care Provider [phone] Encounter Details Date Type Department Care Team (Late st Contact Info) Description 08/08/2021 Notes Only Hematology/Oncology at [address] [phone] Nancy Parks, FISH BAILER OFFICE OF CARE MANAGEMENT Social History Tobacco [...] Progress Notes * Nancy Parks MSW - 08/08/2021 11:33 AM EST Follow up with pt during her infusion visit today per her request. Pt indicated she did contact [place] [employer] and did sign up for mileage reimbursement. Her sister in law will be her pick up truck driver androberte registered her rides with her insurance company per her schedule. Will continue to follow pt for support and resources. Transportation resources documented in this encounter Plan of Treatment Upcoming Encounters Date Type Department Care Team (Late st Contact Info) Description 08/30/2024 2:00 PM EST Office Visit Hematology/Oncology at [address] [phone] Mars Conley MD [facility] DR HEMATOLOGY [place] [address] Cailin Marrero APRN [address] [place] [address] [place] [address] 09/07/2024 9:00 AM EST Office [place] [address] Raven Alvarado MD [facility] [place] [address] 10/04/2024 1:15 PM EST [place] [phone] Feliciano Shay, [facility] [place] [address] documented as of this encounter Visit Diagnoses Not on filedocumented in this encounter Care Teams Signs And Displays Salesperson Relationship Specialty Start Date End Date Nini Machado MD [address] [address] PCP - General 06/26/10 documented as of this encounter
--- OUTSIDE RECORDS SUMMARY | 2024-08-27 00:48 | XMS_ITS | Encounter Summary ---
Author Organization [facility] Address [facility] [place] [address] Care Team Providers Care Weatherization Coordinator Name Role Phone Nini Machado MD Primary Care Provider [phone] Reason for Visit * Reason Comments Chemotherapy cycle 3 day 3 * Treatment/Therapy Plan Authorization (Routine) - Closed Specialty Diagnoses / Procedures Referred By Aldo sotelo Referred To Contact Diagnoses Small cell carcinoma of lung Juan Fitzpatrick MD [facility] DR [place] [address] Referral ID Status Reason Start Date Expiration Date Visits Re quested Visits Authorized [id number] Closed 06/21/2021 06/21/2022 99 99 Encounter Details Date Type Department Care Team (Late Contact Info) Description 08/31/2021 8:30 AM EST Infusion Hematology Oncology at [address] [phone] Small cell carcinoma of lung Social History [...] Sign Reading Time Taken Comments Blood Pressure 111/47 08/31/2021 9:10 AM EST Pulse 51 08/31/2021 9:10 AM EST Temperature 36.6 ??C (97.9 ??F) 08/31/2021 9:10 AM ES T Respiratory Rate 16 08/31/2021 9:10 AM EST Oxygen Saturation 100% 08/31/2021 9:10 AM EST Inhaled Oxygen Concentration - - Weight 58.5 kg (129 lb) 08/31/2021 9:10 AM EST Height 165.1 cm (5' 5) 08/31/2021 9:10 AM EST Body Mass Index 21.47 08/31/2021 9:10 AM EST documented in this encounter Progress Notes * Flakita Crespo RN - 08/31/2021 8:30 AM EST INFUSION THERAPY ADMINISTRATION NOTES TIME TREATMENT STARTED: 914 TIME TREATMENT ENDED: 1209 DIAGNOSIS: lung cancer PROTOCOL:na CYCLE #: 3 day 3 REASON FOR VISIT: etoposide SUBJECTIVE Stefanie Pina offers no complaints. OBJECTIVE LAB DATA: Labs reviewed and found adequate for treatment. Pre administration: Chemotherapy orders independently verified for drug name, route, and dosage per patient's height, weight and BSA by Jordi Crespo RN and Jordi geronimo pharmacist. REACTIONS (DESCRIPTION, TIME, INTERVENTION AND EFFECTIVENESS) none ASSESSMENT Stefanie Pina was awake, alert and he tolerated treatment well. PLAN Return to clinic per routine. documented in this encounter Plan of Treatment Upcoming Encounters Date Type Department Care Team (Late st Contact Info) Description 08/30/2024 2:00 PM EST Office Visit Hematology/Oncology at [address] [phone] Mars Conley MD [facility] DR HEMATOLOGY [place] [address] Cailin Marrero APRN [address] [place] [address] DR [place] [address] 09/07/2024 9:00 AM EST Office Visit [place] [phone] Raven Alvarado MD [facility] [address] [place] [address] 10/04/2024 1:15 PM EST Office [place] [phone] Feliciano Shay, [facility] DR [place] [address] documented as of this encounter Visit Diagnoses Diagnosis Small cell carcinoma of lung Malignant neoplasm of bronchus and lung, unspecified site documented in this encounter Administered Medications Inactive Administered Medications - up to 3 most recent administrations Medication Order MAR Action Action Date Dose Rate Site dexamethasone (Decadron) injection 10 mg 10 mg, Intravenous, ONCE, 1 dose, On Fri08/31/21 at 0830, Administer prior to chemotherapy Given 08/31/2021 9:42 AM EST 10 mg diphenhydrAMINE (Benadryl) (50 mg/mL) injection 25 mg 25 mg, Intravenous, ONCE, 1 dose, On Fri08/31/21 at 0830, Routine Given 08/31/2021 9:36 AM EST 25 mg etoposide (Vepesid) 165 mg in sodium chloride 0.9% Non-PVC 508.25 mL infusion 165 mg (100 mg/m2/dose ? 1.65 m2 Treatment Plan BSA from Recorded weight), Intravenous, ONCE, 1 dose, On Fri08/31/21 at 0900, Administer over 90 Minutes, Warning Vesicant/Irritant Medication New Bag 08/31/2021 10:14 AM EST 165 mg 338.8 mL/hr famotidine (Pepcid) (10 mg/mL) injection 20 mg 20 mg, Intravenous, ONCE, 1 dose, On Fri08/31/21 at 0830 Given 08/31/2021 9:46 AM EST 20 mg documented in this encounter Care Teams Weatherization Coordinator Relationship Specialty Start Date End Date Marco Antonio-Nini Landrum MD [address] [place] [address] PCP - General 06/26/10 documented as of this encounter
--- OUTSIDE RECORDS SUMMARY | 2024-08-27 00:48 | XMS_ITS | Encounter Summary ---
Author Organization [facility] Address [facility] [place] [address] Care Team Providers Care Mining Professionals Name Role Phone Nini Machado MD Primary Care Provider [phone] Encounter Details Date Type Department Care Team (Late st Contact Info) Description 08/29/2021 Notes Only Hematology/Oncology at [address] [phone] Nancy Parks, BLURB WRITER OFFICE OF CARE MANAGEMENT Social History Tobacco [...] Progress Notes * Nancy Parks MSW - 08/29/2021 10:30 AM EST Follow up with pt during her infusion visit. Pt indicated she has completed her RT treatments and now has 2 chemotherapy sessions to go. Pt indicated she is doing fairly well day to day. Offered support. Pt asked BLURB WRITER to follow up with her sister in law María as María is completing the forms needed for [place] [employer] for mileage reimbursement. Met with María to discuss. BLURB WRITER will review the forms and will sign and fax into her insurance company. Pt also [facility] and asked BLURB WRITER to complete her application requesting assistance for funds for pet care. BLURB WRITER completed the medical section and gave to pt's sister in law to forward on to her vet. Reminded pt and sister in law of BLURB WRITER availability and contact information. Will continue to follow for support and resources. Brief assessment Supportive Counseling Financial resources Transportation resources documented in this encounter Plan of Treatment Upcoming Encounters Date Type Department Care Team (Late st Contact Info) Description 08/30/2024 2:00 PM EST Office Visit Hematology/Oncology at [address] [phone] Mars Conley MD [facility] [place] [address] HEMATOLOGY [place] [address] 09/07/2024 9:00 AM EST Office [place] [phone] Raven Alvarado MD [facility] [place] [place] [address] 10/04/2024 1:15 PM EST Office [place] [phone] Feliciano Shay, [facility] DR NEUROLOGY DEPT [place], [place] [phone] documented as of this encounter Visit Diagnoses Not on filedocumented in this encounter Care Teams Mining Professionals Relationship Specialty Start Date End Date Marco Antonio-Nini Landrum MD [address] [address] PCP - General 06/26/10 documented as of this encounter
--- OUTSIDE RECORDS SUMMARY | 2024-08-27 00:48 | XMS_ITS | Encounter Summary ---
Author Organization [facility] Address [facility] [place] [address] Care Team Providers Care Jailor Name Role Phone Nini Machado MD Primary Care Provider [phone] Reason for Visit * Reason Comments Chemotherapy C4D1 Carbo/Etop * Treatment/Therapy Plan Authorization (Routine) - Closed Specialty Diagnoses / Procedures Referred By Contlolita t Referred To Contact Diagnoses Small cell carcinoma of lung Juan Fitzpatrick MD [facility] [place] [address] Referral ID Status Reason Start Date Expiration Date Visits Re quested Visits Authorized [id number] Closed 06/21/2021 06/21/2022 99 99 Encounter Details Date Type Department Care Team (Late Contact Info) Description 09/24/2021 12:00 PM EST Infusion Hematology Oncology at [address] [phone] Small cell carcinoma of lung Social History [...] No 06/20/2021 Housing Stability Vital Sign Answer Eduadro e Recorded In the last 12 months, [...] as of this encounter Progress Notes * Kamilah Nichols RN - 09/24/2021 12:00 PM EST INFUSION THERAPY ADMINISTRATION NOTES DIAGNOSIS: SCLC CYCLE #:Cycle 4 Day1 Carboplatin, Etoposide REASON FOR VISIT: to receive chemo therapy SUBJECTIVE Stefanie offers no complaints today. She was seen by provider today and is ready for treatment. OBJECTIVE LAB DATA: 09/24/21 [...] PLAN Return to clinic tomorrow for day 2. documented in this encounter Plan of Treatment Upcoming Encounters Date Type Department Care Team (Late st Contact Info) Description 08/30/2024 2:00 PM EST Office Visit Hematology/Oncology at [address] [phone] Mars Conley MD [facility] [place] [address] Cailin Marrero APRN [address] [place] [address] DR HEMATOLOGY AND ONCOLOGY [place], [place] [id number] 09/07/2024 9:00 AM EST Office Visit [place] [phone] Raven Alvarado MD [facility] [place] [address] 10/04/2024 1:15 PM EST Office [place] [address] Feliciano Shay, [facility] [place] [address] documented as of this encounter Visit Diagnoses Diagnosis Small cell carcinoma of lung Malignant neoplasm of bronchus and lung, unspecified site documented in this encounter Administered Medications Inactive Administered Medications - up to 3 most recent administrations Medication Order MAR Action Action Date Dose Rate Site aprepitant (CINVANTI) injection Emul 130 mg 130 mg, Intravenous, Administer over 2 Minutes, ONCE, 1 dose, On Fri09/24/21 at 1315, Alternative administration of IV push over 2 minutes is a recommendation from the tool grinder operator surface. Administer prior to chemotherapy., Routine Given 09/24/2021 1:24 PM EST 130 mg CARBOplatin (Paraplatin) 412 mg in dextrose 5% 291.2 mL infusion 412 mg (rounded from 411.5 mg, Target AUC = 5), Intravenous, ONCE, 1 dose, On Fri09/24/21 at 1415, Administer over 30 Minutes, Warning Vesicant/Irritant Medication New Bag 09/24/2021 2:28 PM EST 412 mg 582.4 mL/hr dexamethasone (Decadron) 20 mg in sodium chloride 0.9% 55 mL infusion 20 mg, Intravenous, ONCE, 1 dose, On Fri09/24/21 at 1315, Administer over 30 Minutes, Administer prior to chemotherapy New Bag 09/24/2021 1:26 PM EST 20 mg 110 mL/hr diphenhydrAMINE (Benadryl) (50 mg/mL) injection 25 mg 25 mg, Intravenous, ONCE, 1 dose, On Fri09/24/21 at 1315, Routine Given 09/24/2021 1:20 PM EST 25 mg etoposide (Vepesid) 165 mg in sodium chloride 0.9% Non-PVC 508.25 mL infusion 165 mg (100 mg/m2/dose ? 1.65 m2 Treatment Plan BSA from Recorded weight), Intravenous, ONCE, 1 dose, On Fri09/24/21 at 1415, Administer over 90 Minutes, Warning Vesicant/Irritant Medication New Bag 09/24/2021 3:07 PM EST 165 mg 338.8 mL/hr famotidine (Pepcid) (10 mg/mL) injection 20 mg 20 mg, Intravenous, ONCE, 1 dose, On Fri09/24/21 at 1315 Given 09/24/2021 1:21 PM EST 20 mg palonosetron (Aloxi) (0.05 mg/mL) injection 0.25 mg 0.25 mg, Intravenous, ONCE, 1 dose, On Fri09/24/21 at 1315, Administer over 30 seconds., Routine Given 09/24/2021 1:22 PM EST 0.25 mg documented in this encounter Care Teams Jailor Relationship Specialty Start Date End Date Marco Antonio-Nini Landrum MD [address] [address] PCP - General 06/26/10 documented as of this encounter
--- OUTSIDE RECORDS SUMMARY | 2024-08-27 00:48 | XMS_ITS | Encounter Summary ---
Author Organization [facility] Address [facility] [place] [address] Care Team Providers Care Powder Hand Name Role Phone Nini Machado MD Primary Care Provider [phone] Encounter Details Date Type Department Care Team (Latest Contact Info) Description 08/09/2021 Unscheduled Encounter Hematology/Oncology at [address] [phone] [facility] DR HEMATOLOGY [place] [address] Small cell carcinoma of lung [...] of this encounter Progress Notes * Stephanie Baird, RD - 08/09/2021 12:52 PM EST [facility] Initial Assessment Patient Name: Stefanie Pina Diagnosis: SCLC Referred by: Dr. Siegel Assessment: HPI Patient Active Problem List Diagnosis Code ??? Small cell carcinoma of lung C34.90 Estimated body mass index is 21.72 kg/m?? as calculated from the following: Height as of 08/08/21: 166.4 cm (5' 5.51). Weight as of 08/08/21: 60.1 kg (132 lb 9.6 oz). Wt Readings from Last 3 Encounters: 08/08/21 60.1 kg (132 lb 9.6 oz) 08/07/21 60.1 kg (132 lb 6.4 oz) 08/06/21 59.1 kg (130 lb 6.4 oz) UBW: 119# per patient. She reports she intentionally gained weight prior to start of treatment. Medications: BMX and carafate (new today), culturelle, nystatin, omeprazole, compazine prn, prednisone, pravastatin, vitamin D3, ropinirole, calcium carbonate, thorazine. Patient started carboplatin and etoposide plus radiation therapy BID week of 08/06. Labs on 08/06: Ca 9.0, BG 98, BUN 19H, Creat 0.9, Alb 3.6, TBili 0.3, AlkPhos 55, Na 143, K 4.5, AST 15, ALT 22, WBC 5.28, H/H 11.7/38.5, platelet 293, ANC 3.31, Mg 2.2. Nutrition Screen 08/09/2021 08/08/2021 Reason for assessment Symptom management - Total MST Score - 0 Functional Status 08/09/2021 Mucositis/Esophagitis/Stomatitis Grade 2: Patchy ulcerations of pseudomembranes Patient started to have esophagitis with the start of RT twice daily this week on 08/06/20. She has 5/10 pain with swallowing, especially cold and spicy foods, vinegar and A1 sauce. Food History, Access and Intake 08/09/2021 Who prepares meals? Patient/Self Snap Yes Usual Intake: Breakfast: Honey bun or scrambled eggs or cream of wheat or oatmeal Lunch: balogna or ham sandwich Dinner: Roast with potatoes. Includes baked beans a couple times per week and frozen vegetables regularly as well. Beverages: Gatorade, water, 2 cups coffee, tea, occasionally joshua aaron, fiber drink (unsure which brand) Avoiding any foods: Seeds due to diverticulitis, vinegar and A1C cause pain with swallowing due to esophagitis. Spoke with patient while in infusion today. She is starting to experience some pain with swallowingr/t esophagitis. Her ex- and sister in law are currently staying with her during treatment. Her ex- does the grocery shopping, patient does not go in stores due to covid. She lives in [place], [place]. Patient's weight is currently above her usual body weight; she gained a few pounds by eating more junk food prior to start of treatment. Patient reports that she cannot afford Boost or Ensure but [place] will not [place]. She says shehas enough money for food and receives Snap benefits. Provided 8 sample bottles and coupons today. Food Insecurity Screening 06/20/2021 Within the past 12 months, the food you bought just didn???t last and you didn???t have money to get more. 1 Patient has Snap benefits. Nutrition Diagnosis 08/09/2021 Problems Swallowing difficulty Etiology (related to) Location of radiation therapy Signs and Symptoms Esophagitis Estimated needs based on current weight of 60.1 [id number] kcals (30-35 kcal/kg) 60-90 g protein (1-1.5 g/kg) ~2.1 L fluid Intervention: * Encouraged choosing foods which minimize irritation to esophagus (hard textures, spicy foods, extreme temperatures, etc.). Provided written handout. * Provided samples of Ensure Original and Complete as well as coupons. Discussed goal of weight maintenance. Monitoring and Evaluation: Will follow up with Stefanie on 08/10 to re-evaluate. I have provided her with my card and contact information should she have any questions in the meantime. Thank you for this consult. Stephanie Baird RD documented in this encounter Plan of Treatment Upcoming Encounters Date Type Department Care Team (Late st Contact Info) Description 08/30/2024 2:00 PM EST Office Visit Hematology/Oncology at [address] [phone] Mars Conley MD [facility] DR HEMATOLOGY [place] [address] Cailin Marrero APRN [address] [place] [address] [place] [address] 09/07/2024 9:00 AM EST Office [place] [address] Raven Alvarado MD [facility] [place] [address] 10/04/2024 1:15 PM EST Office [place] [address] Feliciano Shay, [facility] [place] [address] documented as of this encounter Visit Diagnoses Diagnosis Small cell carcinoma of lung Malignant neoplasm of bronchus and lung, unspecified site documented in this encounter Care Teams Powder Hand Relationship Specialty Start Date End Date Marco Antonio-Nini Ladnrum MD [address] [address] PCP - General 06/26/10 documented as of this encounter
--- OUTSIDE RECORDS SUMMARY | 2024-08-27 00:48 | XMS_ITS | Encounter Summary ---
Author Organization [facility] Address [facility] [place] [address] Care Team Providers Care Hvac R Instructor Name Role Phone Nini Machado MD Primary Care Provider [phone] Encounter Details Date Type Department Care Team (Late st Contact Info) Description 09/14/2021 Orders [place] [address] Marichuy Jimenez MD [facility] [place] [address] High grade dysplasia in colonic adenoma Social History Tobacco Use Types Packs/Day Years [...] 2:00 PM EST Office Visit Hematology/Oncology at [address] [phone] Mars Conley MD [facility] DR HEMATOLOGY [place] [address] Cailin Marrero APRN [address] [place] [address] DR [place] [address] 09/07/2024 9:00 AM EST Office [place] [phone] Raven Alvarado MD [facility] [place] [address] 10/04/2024 1:15 PM EST Office [place] [phone] Feliciano Shay, [facility] [place] [address] Scheduled Orders Name Type Priority Associated Diagnoses Orde r Schedule ENDOSCOPY CASE REQUEST: COLONOSCOPY, DIAGNOSTIC Procedures Routine High grade dysplasia in colonic adenoma Ordered: 09/14/2021 documented as of this encounter Visit Diagnoses Diagnosis High grade dysplasia in colonic adenoma Benign neoplasm of colon documented in this encounter Care Teams Hvac R Instructor Relationship Specialty Start Date End Date Marco Antonio-Nini Landrum MD [address] [place] [phone] PCP - General 06/26/10 documented as of this encounter
--- OUTSIDE RECORDS SUMMARY | 2024-08-27 00:48 | XMS_ITS | Encounter Summary ---
Author Organization [facility] Address [facility] [place] [address] Care Team Providers Care Loss Prevention Consultant Name Role Phone Nini Machado MD Primary Care Provider [phone] Encounter Details Date Type Department Care Team (Late st Contact Info) Description 08/29/2021 9:30 AM EST Office Visit Hematology/Oncology at [address] [phone] Faye Pritchett, BERNARDINO [facility] [place] [address] Small cell carcinoma of lung [...] Sign Reading Time Taken Comments Blood Pressure 129/54 08/29/2021 9:14 AM EST Pulse 71 08/29/2021 9:14 AM EST Temperature 36.1 ??C (97 ??F) 08/29/2021 9:14 AM EST Respiratory Rate 18 08/29/2021 9:14 AM EST Oxygen Saturation 97% 08/29/2021 9:14 AM EST Inhaled Oxygen Concentration - - Weight 57.7 kg (127 lb 3.2 oz) 08/29/2021 9:14 A M EST Height 165.1 cm (5' 5) 08/29/2021 9:14 AM EST Body Mass Index 21.17 08/29/2021 9:14 AM EST documented in this encounter Progress Notes * Faye Pritchett, BERNARDINO - 08/29/2021 9:30 AM EST Images from the original note were not included. Hematology & Medical Oncology [address] [phone] Stefanie returns to clinic today to continue treatment for her small cell lung cancer. ASSESSMENT AND PLAN: Stefanie Pina is a 65 y.o. former smoker diagnosed with limited stage small cell lung cancer as detailed below. She began treatment with carboplatin (due to hearing loss) and etoposide on 07.04.21. Admitted with diverticulitis on 07.17.21. Plan: # Limited stage small cell -Labs and toxicities assessed and acceptable for ongoing treatment. She completed concurrent BID radiation on 08/24/21. - Continue BMX/carafate as prescribed for esophagitis. - Continue extra predmedications and dose decadron at 20mg for D1 given reaction with C1 - Follow up visit in 3 weeks for C4 with CBC,CMP, Mg. # Diverticulitis - s/p admission 07/2021. Appears to have recovered well # Chronic back pain - she weaned herself off opioids and is now using just MJ gummies with decent control. # Esophagitis- Using BMX and carafate with relief. Oral intake slowly improving. Tea with honey hassoothed her throat. Seen by Stephanie Baird RD today. Stefanie voiced understanding of the plan and was given an opportunity to ask questions which I answered to the best of my ability. Stefanie understands she can call the clinic between visits with any questions/concerns or new symptoms. Faye Pritchett MSN, MONITOR TECHNICIAN, AOCNP Medical Oncology Interval History/Subjective (08/29/21)- Stefanie is feeling well today. Her biggest complaint is the esophagitis which is slowly improving. She completed radiation last Friday. She has been drinking tea with honey which is soothing her throatand using the BMX/carafate. Denies any nausea or vomiting. Maintained weight from last visit. No fevers, chills or signs of infection. No oral ulcers. Energy is good today. Occasional cough of clear sputum. No hemoptysis. No new pain. She uses the MJ gummies for her back pain. No bowel or bladder issues.No headaches or vision changes. No other focal complaints today. Oncology Overview: Cancer Staging Small cell carcinoma [...] Appears amenable to transbronchoscopic biopsy. Referral to small equipment operator advised. 06.06.21 CT Abdomen Pelvis 1. [...] versus lymph node. No new findings. Pathology: Molecular Data: Treatment Course: 07.04.21 C1D1 Carboplatin/Etoposide 07.17.21 Admitted to [facility] with abdominal pain and found to have acute uncomplicated diverticulitis. Treated with abx and discharged on ONCBCN ONCOLOGY (AMB) 07/04/2021 07/05/2021 07/06/2021 08/06/2021 08/07/2021 08/08/2021 Day, Cycle Day 1, Cycle 1 Day 2, Cycle 1 Day 3, Cycle 1 Day 1, Cycle 2 Day 2, Cycle 2 Day 3, Cycle 2 CARBOplatin (Paraplatin) IV 408 mg - - 373 mg - - dexamethasone (PF) 10 mg/mL (Decadron) IV 10 mg 10 mg 10 mg - - - etoposide 20 mg/mL (Vepesid) [...] REMOVE Please contact the Blood Bank at [phone] for questions. ??? Sulfamethoxazole-Trimethoprim Other reaction(s): Respiratory problems, e.g., wheezing;Dermatological problems, e.g., rash, hives; ??? Methadone Other reaction(s): vomiting ??? Mold Extracts ??? Mushroom Flavor PHYSICAL EXAMINATION: Wt Readings from Last 3 Encounters: 08/29/21 57.7 kg (127 lb 3.2 oz) 08/23/21 58 kg (127 lb 12.8 oz) 08/21/21 57.2 kg (126 lb 3.2 oz) Temp Readings from Last 3 Encounters: 08/29/21 36.1 ??C (97 ??F) (Temporal) 08/23/21 36.8 ??C (98.2 ??F) (Temporal) 08/22/21 37.1 ??C (98.8 ??F) (Temporal) BP Readings from Last 3 Encounters: 08/29/21 129/54 08/23/21 123/54 08/21/21 123/60 Pulse Readings from Last 3 Encounters: 08/29/21 71 08/23/21 98 08/21/21 87 Physical Exam BP 129/54 (Patient Position: Sitting) Pulse 71 Temp 36.1 ??C (97 ??F) (Temporal) Resp 18 Ht165.1 cm (5' 5) Wt 57.7 kg (127 lb 3.2 oz) SpO2 97% BMI 21.17 kg/m?? Constitutional: Oriented to person, place, and time. Appears well-developed. No distress. Mouth/Throat: Oropharynx is clear and moist. Mild erythema. No oropharyngeal exudate. No ulcers. Noscleral icterus. No Thrush Eyes: Anicteric. Cardiovascular: Regular rate and regular rhythm. Exam reveals no friction rub. No murmur heard. Pulmonary/Chest: Normal respiratory effort. Lung clear to ascultation bilaterally. No wheezes or rales. Abdominal: +BS. Soft. No tenderness this week Musculoskeletal: Generally normal strength UE and LE. Normal range of motion. No edema. Lymphadenopathy: No cervical adenopathy. Neurological: Alert and oriented to person, place, and time. Grossly non-focal. Skin: Skin is warm and dry. No rash noted. Mild erythema to chest and throat. Psychiatric: Normal mood and affect. Thought content normal. Data Review: 08/29/21- WBC-6.94 Hgb/Hct-11.5/36.8 Plt-351 ANC-5.09 Na-141 K+-3.8 BUN/Cr-22/1.0 Glucose-91 Ca-9.3 Mg-2.1 T. Bili-0.2 AST-13 ALT-20 Alk phos-73 Albumin-3.5 1.3.22 White blood cell count 5.28 hemoglobin 11.7 platelet count 293,000 absolute neutrophil count3.31 Sodium 143 potassium 4.5 chloride 106 BUN 19 creatinine 0.9 glucose 98 calcium 9.0 magnesium 2.2 total bilirubin 0.3 AST 15 ALT 22 alk phos [address] Abdomen I reviewed the images personally FINDINGS: ?? Lower chest: Normal. ?? Liver: [...] 2:00 PM EST Office Visit Hematology/Oncology at [address] [phone] Mras Conley MD [facility] DR [place] [address] Cailin Marrero APRN [address] [place] [address] DR HEMAT[place]Y [place] [address] 09/07/2024 9:00 AM EST Office Visit [place] [phone] Raven Alvarado MD [facility] [place] [address] 10/04/2024 1:15 PM EST Office Visit [place] [phone] Feliciano Shay, [facility] [place] [address] documented as of this encounter Visit Diagnoses Diagnosis Small cell carcinoma of lung Malignant neoplasm of bronchus and lung, unspecified site documented in this encounter Care Teams Loss Prevention Consultant Relationship Specialty Start Date End Date Nini Machado MD [address] [place] [address] 3 [place] [address] PCP - General 06/26/10 documented as of this encounter
--- OUTSIDE RECORDS SUMMARY | 2024-08-27 00:48 | XMS_ITS | Encounter Summary ---
Author Organization [facility] Address [facility] [place] [address] Care Team Providers Care Resident Care Technician Name Role Phone Nini Machado MD Primary Care Provider [phone] Encounter Details Date Type Department Care Team (Late st Contact Info) Description 08/24/2021 Telephone Hematology Oncology at [address] [phone] Savanah Meehan, RN Social History Tobacco Use Types Packs/Day [...] encounter Miscellaneous Notes * Telephone Encounter - Savanah Meehan RN - 08/24/2021 4:19 PM EST Called to let Stefanie know below. ----- Message from Mars Conley MD sent at 08/24/2021 3:53 PM EST ----- Regarding: RE: mouth sores She can try the nystatin but it won't help much if its not thrush but no harm in trying. A ----- Message ----- From: Savanah Meehan RN Sent: 08/24/2021 9:48 AM EST To: Mars Conley MD, Faye Pritchett APRN Subject: FW: mouth sores I gave Veronica handout on managing mucositis. She will try baking soda rinses. She does have some leftover nystatin swish and swallow at home from previous script, is it ok for her to use that? She will see Faye on fri. Let me know. Savanah ----- Message ----- From: Rhoda Torres RN Sent: 08/24/2021 9:33 AM EST To: [facility] Hem Onc Nurse Subject: mouth sores Leandro Pavon, I saw this patient briefly this morning in between my new patient consults. She is c/o mouth sores especially crack left side of mouth. I looked in side mouth. No clear evidence of thrush, but maybe 1 or 2 white spots inside left cheek. She's wondering if she should have nystatin shish and swallow again. I told her about the salt water baking soda recipe. But she'd like that written down . Do you have a print out? I asked if she has been using the BMX for the mouth pain and if she has been applying some of that exteriorly to the crack. She has been avoiding it because it makes it worse. She is staying in the library for the day until her afternoon radiation treatment. Can you see her and offer any other suggestions, please? Thanks, Rhoda documented in this encounter Plan of Treatment Upcoming Encounters Date Type Department Care Team (Late st Contact Info) Description 08/30/2024 2:00 PM EST Office Visit Hematology/Oncology at [address] [phone] Mars Conley MD [facility] DR HEMATOLOGY [place] [address] Cailin Marrero APRN [address] [place] [address] DR HEMATOLOGY AND ONCOLOGY [place], [place] [id number] 09/07/2024 9:00 AM EST Office Visit [place] [phone] Raven Alvarado MD [facility] [place] [address] 10/04/2024 1:15 PM EST Office [place] [phone] Feliciano Shay, [facility] [place] [address] documented as of this encounter Visit Diagnoses Not on filedocumented in this encounter Care Teams Resident Care Technician Relationship Specialty Start Date End Date Nini Machado MD [address] [facility] 3 [place] [address] PCP - General 06/26/10 documented as of this encounter
--- OUTSIDE RECORDS SUMMARY | 2024-08-27 00:48 | XMS_ITS | Encounter Summary ---
Author Organization [facility] Address [facility] [place] [address] Care Team Providers Care Surgery Scheduling Coordinator Name Role Phone Nini Machdao MD Primary Care Provider [phone] Reason for Visit * Reason Comments Chemotherapy C3D2 Etoposdie * Treatment/Therapy Plan Authorization (Routine) - Closed Specialty Diagnoses / Procedures Referred By Aldo t Referred To Contact Diagnoses Small cell carcinoma of lung Juan Fitzpatrick MD [facility] [place] [address] Referral ID Status Reason Start Date Expiration Date Visits Re quested Visits Authorized [id number] Closed 06/21/2021 06/21/2022 99 99 Encounter Details Date Type Department Care Team (Late Contact Info) Description 08/30/2021 8:30 AM EST Infusion Hematology Oncology at [address] [phone] Small cell carcinoma of lung Social History [...] Sign Reading Time Taken Comments Blood Pressure 117/50 08/30/2021 8:26 AM EST Pulse 59 08/30/2021 8:26 AM EST Temperature 36.4 ??C (97.5 ??F) 08/30/2021 8:26 AM ES T Respiratory Rate 20 08/30/2021 8:26 AM EST Oxygen Saturation 99% 08/30/2021 8:26 AM EST Inhaled Oxygen Concentration - - Weight 58.4 kg (128 lb 12.8 oz) 08/30/2021 8:26 AM EST Height 165.1 cm (5' 5) 08/30/2021 8:26 AM EST Body Mass Index 21.43 08/30/2021 8:26 AM EST documented in this encounter Progress Notes * Kamilah Nichols RN - 08/30/2021 8:30 AM EST INFUSION THERAPY ADMINISTRATION NOTES DIAGNOSIS: SCLC CYCLE #:Cycle 3 Day2 Etoposide REASON FOR VISIT: to receive chemo therapy SUBJECTIVE Stefanie states she feels well today. She is moving her bowels as usual, OBJECTIVE LAB DATA: 08/29/20 WBC:6.94 RBC: 3.76 Plt 351 ANC: 5.09 BUN:22 Cr:1.0 IV ACCESS: PIV Pre administration: Chemotherapy orders independently verified for drug name, route, and dosage per patient's height, weight and BSA by Ratna Nichols RN & pharmacist on-site REACTIONS (DESCRIPTION, TIME, INTERVENTION AND EFFECTIVENESS) none ASSESSMENT Flakita was awake, alert and tolerated treatment well. PLAN Return to clinic tomorrow for day 3. documented in this encounter Plan of Treatment Upcoming Encounters Date Type Department Care Team (Late st Contact Info) Description 08/30/2024 2:00 PM EST Office Visit Hematology/Oncology at [address] [phone] Mars Conley MD [facility] [place] [address] Cailin Marrero APRN [address] [place] [address] DR HEMATOLOGY [place] [address] 09/07/2024 9:00 AM EST Office [place] [phone] Raven Alvarado MD [facility] [place] [address] 10/04/2024 1:15 PM EST Office [place] [phone] Feliciano Shay, [facility] [place] [address] documented as of this encounter Visit Diagnoses Diagnosis Small cell carcinoma of lung Malignant neoplasm of bronchus and lung, unspecified site documented in this encounter Administered Medications Inactive Administered Medications - up to 3 most recent administrations Medication Order MAR Action Action Date Dose Rate Site dexamethasone (Decadron) injection 10 mg 10 mg, Intravenous, ONCE, 1 dose, On Parisa 08/30/21 at 0830, Administer prior to chemotherapy Given 08/30/2021 9:00 AM EST 10 mg diphenhydrAMINE (Benadryl) (50 mg/mL) injection 25 mg 25 mg, Intravenous, ONCE, 1 dose, On Parisa 08/30/21 at 0830, Routine Given 08/30/2021 9:02 AM EST 25 mg etoposide (Vepesid) 165 mg in sodium chloride 0.9% Non-PVC 508.25 mL infusion 165 mg (100 mg/m2/dose ? 1.65 m2 Treatment Plan BSA from Recorded weight), Intravenous, ONCE, 1 dose, On Parisa 08/30/21 at 0930, Administer over 90 Minutes, Warning Vesicant/Irritant Medication New Bag 08/30/2021 9:39 AM EST 165 mg 338.8 mL/hr famotidine (Pepcid) (10 mg/mL) injection 20 mg 20 mg, Intravenous, ONCE, 1 dose, On Parisa 08/30/21 at 0830 Given 08/30/2021 9:04 AM EST 20 mg documented in this encounter Care Teams Surgery Scheduling Coordinator Relationship Specialty Start Date End Date Marco Antonio-Nini Landrum MD [address] [address] PCP - General 06/26/10 documented as of this encounter
--- OUTSIDE RECORDS SUMMARY | 2024-08-27 00:48 | XMS_ITS | Encounter Summary ---
Author Organization [facility] Address [facility] [place] [address] Care Team Providers Care Gutter Hanger Name Role Phone Nini Machado MD Primary Care Provider [phone] Encounter Details Date Type Department Care Team (Late st Contact Info) Description 08/16/2021 3:00 PM EST Office Visit Radiation Oncology at [address] [phone] Jorge Siegel MD [address] [place] [address] [place] [address] Small cell carcinoma of lung [...] Sign Reading Time Taken Comments Blood Pressure 113/50 08/16/2021 2:00 PM EST Pulse 65 08/16/2021 2:00 PM EST Temperature 36.9 ??C (98.4 ??F) 08/16/2021 2:00 PM ES T Respiratory Rate 20 08/16/2021 2:00 PM EST Oxygen Saturation 100% 08/16/2021 2:00 PM EST Inhaled Oxygen Concentration - - Weight 58.5 kg (129 lb) 08/16/2021 2:00 PM EST Height - - Body Mass Index 21.13 08/10/2021 9:14 AM EST documented in this encounter Progress Notes * Jorge Siegel MD - 08/16/2021 8:30 AM EST Images from the original note were not included. RADIATION ONCOLOGY - Weekly On Treatment Visit Note 08/16/21 JORGE SIEGEL MD Radiation Oncology [facility] [phone] (paging plate furnace operator) Pager #[phone] PATIENT IDENTIFICATION Name Stefanie Pina Date of [...] DETAILS Treatment Intent: Definitive (Curative) Concurrent Therapy: Carbo/Etop (from Dr Conley) Treatment Site Right hilum / mediastinum Prescribed Dose 45 Gy in 30 fractions BID Current Dose: 27 Gy in 18 fractions Macaroni Maker Piña from Current Plan (minimum 45 Gy isodose volume shown): INTERVAL HISTORY General: Overall feels fair. Chest: Stable occasional cough. No SOB. Stable RIOS. +Esophagitis. Eating softer foods, but not needing to take BMX/carafate. Pain: Mild pain with swallowing. Nutrition: Weight at start of therapy 132lbs --> 129lbs today. IVAN Brown Page following. MEDS Medications 08/16/21 4736 Medication Sig Taking? sertraline (Zoloft) 50 mg Tablet Take 50 mg by mouth daily. Yes lactobacillus rhamnosus, GG, (CULTURELLE) 10 billion cell Capsule Take 1 capsule by mouth daily. Yes Ventolin HFA 90 mcg/actuation HFA Aerosol Inhaler inhale 2 puffs USING INHALER EVERY 4 HOURS NEEDED Yes pravastatin (Pravachol) 20 mg Tablet take 1 tablet by mouth once daily for cholesterol Yes montelukast (Singulair) 10 mg Tablet daily. Yes UNABLE TO FIND Fiber drink prn to form bowels UNABLE TO FIND as needed. Tucks diphenhydrAMINE/aluminum-magnesium hydroxide with simethicone/lidocaine (BMX) (6.67 mg-0.83 mg-13.33 mg-1.33 mg/mL) oral liquid Take as needed for swallowing pain up to 5x/day. Patient not taking: Reported on 08/10/2021 sucralfate (Carafate) 1 gram Tablet Dissolve 1 tablet in 1-2 teaspoons of water and take after meals to help with swallowing pain. Patient not taking: Reported on 08/14/2021 omeprazole (PriLOSEC) 20 mg Capsule, Delayed Release(E.C.) Take 1 capsule by mouth daily. prochlorperazine (Compazine) 10 mg Tablet Take 1 tablet by mouth every 6 hours as needed for Nausea. Patient not taking: Reported on 07/30/2021 estradioL (Estrace) 0.01 % (0.1 mg/gram) Cream PRN: 7days prior to pap smear EPINEPHrine (EpiPen) 0.3 mg/0.3 mL Auto-Injector EPIPEN 2-GIOVANNA 0.3 MG/0.3ML SOAJ albuteroL (Proventil) 2.5 mg /3 mL (0.083 %) Solution for Nebulization ALBUTEROL SULFATE (2.5 MG/3ML) 0.083% NEBU IMAGING / LABS: I have personally reviewed this patient's interval portal imaging to confirm accurate positioning and alignment which matches the patient's original approved treatment planning images. EXAM: BP 113/50 Pulse 65 Temp 36.9 ??C (98.4 ??F) Resp 20 Wt 58.5 kg (129 lb) SpO2 100% BMI 21.13 kg/m?? Constitutional: she appears well-developed and well-nourished. [...] 2:00 PM EST Office Visit Hematology/Oncology at [address] [phone] Mars Conley MD [facility] DR [place] [address] Cailin Marrero APRN [address] [place] [address] DR [place] [address] 09/07/2024 9:00 AM EST Office Visit General Surgery at [place] [phone] Raven Alvarado MD [facility] [place] [address] 10/04/2024 1:15 PM EST Office Visit Neurology at [place] [phone] Feliciano Shay, [facility] [place] [address] documented as of this encounter Visit Diagnoses Diagnosis Small cell carcinoma of lung Malignant neoplasm of bronchus and lung, unspecified site documented in this encounter Care Teams Gutter Hanger Relationship Specialty Start Date End Date Marco Antonio-Nini Landrum MD [address] [phone] PCP - General 06/26/10 documented as of this encounter
--- OUTSIDE RECORDS SUMMARY | 2024-08-27 00:48 | XMS_ITS | Encounter Summary ---
Author Organization [facility] Address [facility] [place] [address] Care Team Providers Care Corrections Identification Technician Name Role Phone Nini Machado MD Primary Care Provider [phone] Reason for Visit * Reason Comments Chemotherapy C2D1 Carbo/Etop * Treatment/Therapy Plan Authorization (Routine) - Closed Specialty Diagnoses / Procedures Referred By Contlolita t Referred To Contact Diagnoses Small cell carcinoma of lung Juan Fitzpatrick MD [facility] [place] [address] Referral ID Status Reason Start Date Expiration Date Visits Re quested Visits Authorized [id number] Closed 06/21/2021 06/21/2022 99 99 Encounter Details Date Type Department Care Team (Late Contact Info) Description 08/06/2021 10:30 AM EST Infusion Hematology Oncology at [address] [phone] Small cell carcinoma of lung Social History [...] Progress Notes * Kamilah Nichols RN - 08/06/2021 10:30 AM EST INFUSION THERAPY ADMINISTRATION NOTES DIAGNOSIS: SCLC CYCLE #:Cycle 2 Day1 Carboplatin, Etoposide REASON FOR VISIT: to receive chemo therapy SUBJECTIVE Stefanie reports she is feeling scared about today's infusion, she states she had a reaction during her first infusion and is worried it will happen again. She experienced shortness of breath and felt very hot when it happened. I reviewed the premeds we would be administering to help prevent another reaction. OBJECTIVE LAB DATA: WBC:5.28 RBC: 3.86 Plt 293 ANC: 3.31 [...] PM EST Office Visit Hematology/Oncology at [address] [phone] Mars Conley MD [facility] DR [place] [address] Cailin Marrero BUSINESS UNIT MANAGER [address] [place] [address] [place] [address] 09/07/2024 9:00 AM EST Office Visit [place] [phone] Raven Alvarado MD [facility] [place] [address] 10/04/2024 1:15 PM EST Office [place] [phone] Feliciano Shay, [facility] [place] [address] documented as of this encounter Visit Diagnoses Diagnosis Small cell carcinoma of lung Malignant neoplasm of bronchus and lung, unspecified site documented in this encounter Administered Medications Inactive Administered Medications - up to 3 most recent administrations Medication Order MAR Action Action Date Dose Rate Site aprepitant (CINVANTI) injection Emul 130 mg 130 mg, Intravenous, Administer over 2 Minutes, ONCE, 1 dose, On 08/06/21 at 1045, Alternative administration of IV push over 2 minutes is a recommendation from the service car driver. Administer prior to chemotherapy., Routine Given 08/06/2021 11:02 AM EST 130 mg CARBOplatin (Paraplatin) 373 mg in dextrose 5% 287.3 mL infusion 373 mg (rounded from 372.5 mg, Target AUC = 5), Intravenous, ONCE, 1 dose, On Fri08/06/21 at 1145, Administer over 30 Minutes, Warning Vesicant/Irritant Medication New Bag 08/06/2021 12:37 PM EST 373 mg 574.6 mL/hr dexamethasone (Decadron) 20 mg in sodium chloride 0.9% 55 mL infusion 20 mg, Intravenous, ONCE, 1 dose, On Fri08/06/21 at 1045, Administer over 30 Minutes, Administer prior to chemotherapy New Bag 08/06/2021 11:29 AM EST 20 mg 110 mL/hr diphenhydrAMINE (Benadryl) (50 mg/mL) injection 25 mg 25 mg, Intravenous, ONCE, 1 dose, On Fri08/06/21 at 1045, Routine Given 08/06/2021 10:57 AM EST 25 mg etoposide (Vepesid) 165 mg in sodium chloride 0.9% Non-PVC 508.25 mL infusion 165 mg (100 mg/m2/dose ? 1.65 m2 Treatment Plan BSA from Recorded weight), Intravenous, ONCE, 1 dose, On Fri08/06/21 at 1145, Administer over 90 Minutes, Warning Vesicant/Irritant Medication New Bag 08/06/2021 1:28 PM EST 165 mg 338.8 mL/hr famotidine (Pepcid) (10 mg/mL) injection 20 mg 20 mg, Intravenous, ONCE, 1 dose, On Fri08/06/21 at 1045 Given 08/06/2021 10:59 AM EST 20 mg palonosetron (Aloxi) (0.05 mg/mL) injection 0.25 mg 0.25 mg, Intravenous, ONCE, 1 dose, On Fri08/06/21 at 1045, Administer over 30 seconds., Routine Given 08/06/2021 11:04 AM EST 0.25 mg documented in this encounter Care Teams Corrections Identification Technician Relationship Specialty Start Date End Date Marco Antonio-Nini Landrum MD [address] [place] [address] PCP - General 06/26/10 documented as of this encounter
--- OUTSIDE RECORDS SUMMARY | 2024-08-27 00:48 | XMS_ITS | Encounter Summary ---
Author Organization [facility] Address [facility] [place] [address] Care Team Providers Care Relocation Commissioner Name Role Phone Nini Machado MD Primary Care Provider [phone] Encounter Details Date Type Department Care Team (Latest Contact Info) Description 08/22/2021 Unscheduled Encounter Hematology/Oncology at [address] [phone] [facility] DR [place] [address] Small cell carcinoma of lung [...] Progress Notes * Stephanie Baird RD - 08/22/2021 1:21 PM EST Nutrition Follow-Up Spoke with patient between her RT treatments today. She reports she is eating well and came with a lunch bag full of soft foods for her day here (muffin, applesauce, yogurt, etc.). She is drinking two Boost Complete per day. She describes some more pain with swallowing but is still able to eat and drink a fairly stable amount. She was more concerned with symptoms associated with what she believesis a sinus infection. This was discussed with Michelle Christian RN today. Patient started carboplatin and etoposide plus radiation therapy BID week of 08/06. Wt Readings from Last 3 Encounters: 08/21/21 57.2 kg (126 lb 3.2 oz) 08/16/21 58.5 kg (129 lb) 08/14/21 58.2 kg (128 lb 3.2 oz) 08/06/21 130# starting weight Patient is down 4# in the past two weeks since start of treatment (3.1% body weight) Encouraged continuing with PO intake to support weight maintenance and further weight loss. Will f/u on 08/24. documented in this encounter Plan of Treatment Upcoming Encounters Date Type Department Care Team (Late st Contact Info) Description 08/30/2024 2:00 PM EST Office Visit Hematology/Oncology at [address] [phone] Mars Conley MD [facility] [place] [address] Cailin Marrero APRN [address] [place] [address] DR HEMATOLOGY [place] [address] 09/07/2024 9:00 AM EST Office [place] [phone] Raven Alvarado MD [facility] [place] [place] [address] 10/04/2024 1:15 PM EST Office [place] [phone] Feliciano Shay, [facility] [place] [address] documented as of this encounter Visit Diagnoses Diagnosis Small cell carcinoma of lung Malignant neoplasm of bronchus and lung, unspecified site documented in this encounter Care Teams Relocation Commissioner Relationship Specialty Start Date End Date Marco Antonio-Nini Landrum MD [address] [place] [address] 3 [place] [address] PCP - General 06/26/10 documented as of this encounter
--- OUTSIDE RECORDS SUMMARY | 2024-08-27 00:48 | XMS_ITS | Encounter Summary ---
Author Organization [facility] Address [facility] [place] [address] Care Team Providers Care Statistical Methods Teacher Name Role Phone Nini Machado MD Primary Care Provider [phone] Encounter Details Date Type Department Care Team (Latest Contact Info) Description 08/10/2021 Unscheduled Encounter Hematology/Oncology at [address] [phone] [facility] DR [place] [address] Small cell carcinoma of lung [...] Progress Notes * Stephanie Baird RD - 08/10/2021 2:55 PM EST Nutrition Follow-Up Spoke with patient between her RT treatments today. She brought a lunch bag with yogurt, applesauce, and other soft foods with her today. Patient is having pain with swallowing but has not started BMX or carafate yet. Provided two more bottles of Ensure Complete and pudding for her to have today. She plans to do grocery shop this weekend using list of foods we discussed. Wt Readings from Last 3 Encounters: 08/10/21 58.9 kg (129 lb 12.8 oz) 08/08/21 60.1 kg (132 lb 9.6 oz) 08/07/21 60.1 kg (132 lb 6.4 oz) UBW: 119# Encouraged small, frequent meals with soft, high calorie/protein foods and 1-2 Ensure per day. Will f/u on 08/15. documented in this encounter Plan of Treatment Upcoming Encounters Date Type Department Care Team (Late st Contact Info) Description 08/30/2024 2:00 PM EST Office Visit Hematology/Oncology at [address] [phone] Mars Conley MD [facility] DR [place] [address] Cailin Marrero, TELETYPE OR VARITYPE KEYBOARD OPERATOR [address] [place] [address] DR HEMATOLOGY [place] [address] 09/07/2024 9:00 AM EST Office [place] [phone] Raven Alvarado MD [facility] [place] [address] 10/04/2024 1:15 PM EST Office [place] [phone] Feliciano Shay, [facility] [place] [address] documented as of this encounter Visit Diagnoses Diagnosis Small cell carcinoma of lung Malignant neoplasm of bronchus and lung, unspecified site documented in this encounter Care Teams Statistical Methods Teacher Relationship Specialty Start Date End Date Marco Antonio-Nini Landrum MD [address] [address] PCP - General 06/26/10 documented as of this encounter
--- OUTSIDE RECORDS SUMMARY | 2024-08-27 00:48 | XMS_ITS | Encounter Summary ---
Author Organization [facility] Address [facility] [place] [address] Care Team Providers Care Process Planner Name Role Phone Nini Machado MD Primary Care Provider [phone] Encounter Details Date Type Department Care Team (Late st Contact Info) Description 08/22/2021 Notes Only Radiation Oncology at [address] [phone] Michelle Christian, RN Social History Tobacco Use Types Packs/Day [...] Sign Reading Time Taken Comments Blood Pressure - - Pulse - - Temperature 37.1 ??C (98.8 ??F) 08/22/2021 11:[address] Respiratory Rate - - Oxygen Saturation - - Inhaled Oxygen Concentration - - Weight - - Height - - Body Mass Index - - documented in this encounter Progress Notes * Michelle Christian, RN - 08/22/2021 11:01 AM EST Radiation Oncology Nursing on Treatment Note Patient has received 25 cGy to the lung for treatment of small cell lung cancer. Side effects that patient is experiencing: Patient feeling like has recurrence of sinus infection and asked to discuss with nursing. Assessment: Patient seen in library where she is resting in between her scheduled xrt appointments. She reports that her symptoms started 4 days ago with her typical symptoms of eyes feeling swollen,sinus pressure/pain, headache, thick yellow nasal discharge. She is afebrile and otherwise without new complaints or worsening of existing symptoms. She states that she did not address with Dr. Beckford yesterday during otv. She rates pain can be up to level 4/10 but is currently less than that. Reports that she has taken tylenol prn which is helpful for pressure/pain but historically needs antibiotics to resolve it. Anticipatory guidance/ interventions: Dr. Muller updated via [facility] and recommended that if no fever can try decongestants and typical home remedies. I instructed patient regarding Dr. Muller's recommendations as above. . She states that historicallydecongestants and other otc/home remedies do not work and that she has worked through all of that with PCP, Carol Machado before. Patient reports that she now does have a call into her PCP office andis waiting to hear back from them regarding how to proceed. She also says that she does not want to interrupt her chemo schedule for next week by being on antibiotics. I let her know that I will update Dr. Conley as well. I instructed to continue to push fluids as she is trying to help liquify any secretions, report anyfever or worsening symptoms promptly and to keep us updated regarding outcome of call to PCP. Other: She is agreeable to above. OTV MD's updated with this note as well. documented in this encounter Plan of Treatment Upcoming Encounters Date Type Department Care Team (Late st Contact Info) Description 08/30/2024 2:00 PM EST Office Visit Hematology/Oncology at [address] [phone] Mars Conley MD [facility] DR HEMATOLOGY [place] [address] Cailin Marrero APR[address] [place] [address] 09/07/2024 9:00 AM EST Office [place] [phone] Raven Alvarado MD [facility] [place] [address] 10/04/2024 1:15 PM EST Office [place] [phone] Feliciano Shay, [facility] [place] [address] documented as of this encounter Visit Diagnoses Not on filedocumented in this encounter Care Teams Process Planner Relationship Specialty Start Date End Date Nini Machado MD [address] [place] [phone] PCP - General 06/26/10 documented as of this encounter
--- OUTSIDE RECORDS SUMMARY | 2024-08-27 00:48 | XMS_ITS | Encounter Summary ---
Author Organization [facility] Address [facility] [place] [address] Care Team Providers Care Lens Fabricating Machine Tender Name Role Phone Nini Machado MD Primary Care Provider [phone] Encounter Details Date Type Department Care Team (Late st Contact Info) Description 09/17/2021 9:30 AM EST Office Visit Hematology/Oncology at [address] [phone] Mars Conley MD [facility] [place] [address] Small cell carcinoma of lung; Chemotherapy-induced neutropenia [...] Sign Reading Time Taken Comments Blood Pressure 131/60 09/17/2021 9:52 AM EST Pulse 63 09/17/2021 9:52 AM EST Temperature 36.5 ??C (97.7 ??F) 09/17/2021 9:52 AM ES T Respiratory Rate 16 09/17/2021 9:52 AM EST Oxygen Saturation 100% 09/17/2021 9:52 AM EST Inhaled Oxygen Concentration - - Weight 59.1 kg (130 lb 3.2 oz) 09/17/2021 9:52 A M EST Height 165.1 cm (5' 5) 09/17/2021 9:52 AM EST Body Mass Index 21.67 09/17/2021 9:52 AM EST documented in this encounter Progress Notes * Mars Conley MD - 09/17/2021 9:30 AM EST Images from the original note were not included. Hematology & Medical Oncology [address] [id number] Stefanie returns to clinic today to continue treatment for her small cell lung cancer. ASSESSMENT AND PLAN: Stefanie Pina is a 65 y.o. former smoker diagnosed with limited stage small cell lung cancer as detailed below. She began treatment with carboplatin (due to hearing loss) and etoposide on 07.04.21. Admitted with diverticulitis on 07.17.21. Plan: # Limited stage small cell- She completed concurrent BID radiation on 08/24/21. -Labs and toxicities assessed. ANC of 560. Afebrile. Will need to hold treatment and reassess. Discussed neutropenic fever precautions - Reassess next week and then have her return about 1 month after treatment with restaging CT Chest # Diverticulitis - s/p admission 07/2021. Appears to have recovered well # Chronic back pain - she weaned herself off opioids and is now using just MJ gummies with decent control. # Esophagitis- Using BMX and carafate with relief. Oral intake slowly improving. T Mars Conley MD, MS 09/17/2021 Thoracic Oncology [facility] Interval History/Subjective: Last seen 08/29/2021 Feeling better. Did have an episode of emesis after too much. No further episodes after this. Used the antinausea medicine and this helped. No belly pain No fevers Bowels Oncology Overview: Cancer Staging Small cell carcinoma [...] Appears amenable to transbronchoscopic biopsy. Referral to glass block installer advised. 06.06.21 CT Abdomen Pelvis 1. .No [...] Course: 07.04.21 C1D1 Carboplatin/Etoposide 07.17.21 Admitted to [facility] with abdominal pain and found to have acute uncomplicated diverticulitis. Treated with abx and discharged on 08.06.21 C2 with concurrent BID radiation ending 08.24.21 45 Gy in 30 fractions 08.29.21 C3 ONCBCN ONCOLOGY (AMB) 07/06/2021 08/06/2021 08/07/2021 08/08/2021 08/29/2021 08/30/2021 08/31/2021 Day, Cycle Day 3, Cycle 1 Day 1, Cycle 2 Day 2, Cycle 2 Day 3, Cycle 2 Day 1, Cycle 3 Day 2, Cycle 3 Day 3, Cycle 3 CARBOplatin (Paraplatin) IV - 373 mg - - 383 mg - - dexamethasone (PF) 10 mg/mL (Decadron) IV 10 mg - - - - - - etoposide [...] REMOVE Please contact the Blood Bank at [phone] for questions. ??? Sulfamethoxazole-Trimethoprim Other reaction(s): Respiratory problems, e.g., wheezing;Dermatological problems, e.g., rash, hives; ??? Methadone Other reaction(s): vomiting ??? Mold Extracts ??? Mushroom Flavor PHYSICAL EXAMINATION: Wt Readings from Last 3 Encounters: 09/17/21 59.1 kg (130 lb 3.2 oz) 08/31/21 58.5 kg (129 lb) 08/30/21 58.4 kg (128 lb 12.8 oz) Temp Readings from Last 3 Encounters: 09/17/21 36.5 ??C (97.7 ??F) (Temporal) 08/31/21 36.6 ??C (97.9 ??F) (Temporal) 08/30/21 36.4 ??C (97.5 ??F) (Temporal) BP Readings from Last 3 Encounters: 09/17/21 131/60 08/31/21 111/47 08/30/21 117/50 Pulse Readings from Last 3 Encounters: 09/17/21 63 08/31/21 51 08/30/21 59 Physical Exam BP 131/60 (Patient Position: Sitting) Pulse 63 Temp 36.5 ??C (97.7 ??F) (Temporal) Resp 16 Ht 165.1 cm (5' 5) Wt 59.1 kg (130 lb 3.2 oz) SpO2 100% BMI 21.67 kg/m?? Physical Exam Constitutional: General: Not in [...] phos 55 [address] Abdomen FINDINGS: ?? Lower chest: Normal. [...] PM EST Office Visit Hematology/Oncology at [address] [phone] Mars Conley MD [facility] [place] [address] Cailin Marrero APRN [address] [place] [address] [place] [address] 09/07/2024 9:00 AM EST Office [place] [phone] Raven Alvarado MD [facility] [place] [address] 10/04/2024 1:15 PM EST Office [place] [phone] Feliciano Shay, DO [facility] [place] [address] documented as of this encounter Visit Diagnoses Diagnosis Small cell carcinoma of lung Malignant neoplasm of bronchus and lung, unspecified site Chemotherapy-induced neutropenia Drug induced neutropenia documented in this encounter Care Teams Lens Fabricating Machine Tender Relationship Specialty Start Date End Date Marco Antonio-Nini Landrum MD [address] [id number] PCP - General 06/26/10 documented as of this encounter
--- OUTSIDE RECORDS SUMMARY | 2024-08-27 00:48 | XMS_ITS | Encounter Summary ---
Author Organization [facility] Address [facility] [place] [address] Care Team Providers Care Charhouse Worker Name Role Phone Nini Machado MD Primary Care Provider [phone] Reason for Visit * Reason Onset Date Comments Other 09/03/2021 transportation f orm Encounter Details Date Type Department Care Team (Late st Contact Info) Description 09/03/2021 Telephone Hematology/Oncology at [address] [phone] Nancy Parks, MEDICAL/SURGERY REGISTERED NURSE OFFICE OF CARE MANAGEMENT Other (transportation form) Social History Tobacco Use Types Packs/Day Years [...] encounter Miscellaneous Notes * Telephone Encounter - Nancy Parks MSW - 09/03/2021 9:56 AM EST Received pt's [employer] mileage reimbursement forms from Savanah Meehan RN. Confirmeddates of appointments/trips. Faxed form to [place] [employer] per pt request. documented in this encounter Plan of Treatment Upcoming Encounters Date Type Department Care Team (Late st Contact Info) Description 08/30/2024 2:00 PM EST Office Visit Hematology/Oncology at [address] [phone] Mars Conley MD [facility] DR HEMATOLOGY [place] [address] Cailin Marrero APRN [address] [place] [address] DR HEMATOLOGY AND ONCOLOGY [place], [place] [address] 09/07/2024 9:00 AM EST Office Visit [place] [address] Raven Alvarado MD [facility] [place] [address] 10/04/2024 1:15 PM EST Office [place] [phone] Feliciano Shay, [facility] [place] [address] documented as of this encounter Visit Diagnoses Not on filedocumented in this encounter Care Teams Charhouse Worker Relationship Specialty Start Date End Date Nini Machado MD [address] [address] PCP - General 06/26/10 documented as of this encounter
--- OUTSIDE RECORDS SUMMARY | 2024-08-27 00:48 | XMS_ITS | Encounter Summary ---
Author Organization [facility] Address [facility] [place] [address] Care Team Providers Care Executive Search Consultant Name Role Phone Nini Machado MD Primary Care Provider [phone] Reason for Visit * Reason Comments On Treatment Visit Encounter Details Date Type Department Care Team (Late st Contact Info) Description 08/21/2021 8:30 AM EST Office Visit Radiation Oncology at [address] [phone] Jenny Beckford MD [facility] [place] [address] Small cell carcinoma of right [...] Sign Reading Time Taken Comments Blood Pressure 123/60 08/21/2021 8:31 AM EST Pulse 87 08/21/2021 8:31 AM EST Temperature 37.2 ??C (99 ??F) 08/21/2021 8:31 AM EST Respiratory Rate 18 08/21/2021 8:31 AM EST Oxygen Saturation 97% 08/21/2021 8:31 AM EST Inhaled Oxygen Concentration - - Weight 57.2 kg (126 lb 3.2 oz) 08/21/2021 8:31 A M EST Height - - Body Mass Index 20.67 08/10/2021 9:14 AM EST documented in this encounter Patient Instructions * Patient Instructions* Jenny Beckford MD - 08/21/2021 8:30 AM EST GasX (also called simethicone) is available over the counter without a prescription & it may help relieve the discomfort which occurs @ night. Take as directed. documented in this encounter Progress Notes * Jenny Beckford MD - 08/21/2021 8:30 AM EST Images from the original note were not included. RADIATION ONCOLOGY - Weekly On Treatment Visit Note 08/21/21 JENNY BECKFORD MD Radiation Oncology [facility] [phone] (paging pilot plant operator) Pager #[phone] PATIENT IDENTIFICATION Name Stefanie Pina Date of [...] Gy in 30 fractions BID Current Dose: 34.5 Gy in 23 fractions Package Line Operator Piña from Current Plan (minimum 45 Gy isodose volume shown): INTERVAL HISTORY General: Overall feels fair. Chest: Stable occasional cough. No SOB. Stable RIOS. +Esophagitis, increased over past wk, wakes her @ night w/abdominal discomfort, takes BMX, which helps. Also taking carafate, prilosec & tylenol. Eating soft solids like muffin, applesauce, mashed potatoes & drinks Ensure Plus (1/d, plans to increase to 2/d). Pain: From esophagitis. Nutrition: Weight at start of therapy 132lbs --> 126lbs today. IVAN Brown Page following. MEDS Medications 08/21/21 1732 Medication Sig Taking? sertraline (Zoloft) 50 mg Tablet Take 50 mg by mouth daily. Yes diphenhydrAMINE/aluminum-magnesium hydroxide with simethicone/lidocaine (BMX) (6.67 mg-0.83 mg-13.33 mg-1.33 mg/mL) oral liquid Take as needed for swallowing pain up to 5x/day. Yes sucralfate (Carafate) 1 gram Tablet Dissolve 1 tablet in 1-2 teaspoons of water and take after meals to help with swallowing pain. Yes omeprazole (PriLOSEC) 20 mg Capsule, Delayed Release(E.C.) Take 1 capsule by mouth daily. Yes pravastatin (Pravachol) 20 mg Tablet take 1 tablet by mouth once daily for cholesterol Yes montelukast (Singulair) 10 mg Tablet daily. Yes UNABLE TO FIND Fiber drink prn to form bowels UNABLE TO FIND as needed. Tucks lactobacillus rhamnosus, GG, (CULTURELLE) 10 billion cell Capsule Take 1 capsule by mouth daily. prochlorperazine [...] original approved treatment planning images. EXAM: BP 123/60 (Patient Position: Sitting) Pulse 87 Temp 37.2 ??C (99 ??F) (Temporal) Resp 18 Wt57.2 kg (126 lb 3.2 oz) SpO2 97% BMI 20.67 kg/m?? Constitutional: she appears well-developed and well-nourished. [...] Tolerating as anticipated. Continue as planned. Esophagitis: Advised to try GasX for abdominal discomfort. BMX/carafate. Prilosec. Tylenol. RD following. Followup: RTC for on-treatment assessment next week. documented in this encounter Plan of Treatment Upcoming Encounters Date Type Department Care Team (Late st Contact Info) Description 08/30/2024 2:00 PM EST Office Visit Hematology/Oncology at [address] [phone] Mars Conley MD [facility] DR [place] [address] Cailin Marrero APRN [address] [place] [address] DR [place] [address] 09/07/2024 9:00 AM EST Office Visit [place] [phone] Raven Alvarado MD [facility] [place] [address] 10/04/2024 1:15 PM EST Office Visit [place] [phone] Feliciano Shay, [facility] [place] [address] documented as of this encounter Visit Diagnoses Diagnosis Small cell carcinoma of right lung documented in this encounter Care Teams Executive Search Consultant Relationship Specialty Start Date End Date Marco Antonio-Nini Landrum MD [address] [place] [address] [address] [place] [address] PCP - General 06/26/10 documented as of this encounter
--- OUTSIDE RECORDS SUMMARY | 2024-08-27 00:48 | XMS_ITS | Encounter Summary ---
Author Organization [facility] Address [facility] [place] [address] Care Team Providers Care Live Games Dealer Name Role Phone Nini Machado MD Primary Care Provider [phone] Encounter Details Date Type Department Care Team (Late st Contact Info) Description 08/29/2021 10:30 AM EST Office Visit Hematology/Oncology at [address] [phone] [address] [facility] DR HEMATOLOGY [place] [address] Small cell carcinoma of lung [...] Progress Notes * Stephanie Baird, RD - 08/29/2021 10:30 AM EST [facility] Nutrition Assessment Progress Note Stefanie Pina Diagnosis: SCLC Wt Readings from Last 3 Encounters: 08/29/21 57.7 kg (127 lb 3.2 oz) 08/23/21 58 kg (127 lb 12.8 oz) 08/21/21 57.2 kg (126 lb 3.2 oz) BMI 21.16 08/06/21 130# starting weight Patient has lost 3# in the past 3 weeks since start of treatment (2.4% body weight)--not significant. UBW: 119# per patient. She intentionally gained weight prior to start of treatment. Assessment: Nutrition Screen 08/29/2021 08/23/2021 Reason for assessment Symptom management - Total MST Score 0 0 Functional Status 08/29/2021 08/09/2021 Mucositis/Esophagitis/Stomatitis Grade 2: Patchy ulcerations of pseudomembranes Grade 2: Patchy ulcerations of pseudomembranes Odynophagia Present - Fatigue Grade 1 - Patient reports she is having quite a bit of pain with swallowing, which she manages with BMX and carafate and mostly liquid diet. Food History, Access and Intake 08/29/2021 08/09/2021 Who prepares meals? - Patient/Self Snap Yes Yes Patient is consuming cheese (chews until liquid), cream of wheat, eggs, pudding yogurt. She has something to eat every two hours. She is avoiding Ensure, anything that is too salty, plain water, hard/solid foods, all of which aretoo painful to swallow. Food Insecurity Screening 06/20/2021 Within the past 12 months, the food you bought just didn???t last and you didn???t have money to get more. 1 Medications: BMX, zoloft, sucralfate, probiotic, omeprazole, compazine prn, pravastatin. Patient receiving carboplatin, etoposide; she completed RT on 08/24. No updated labs Nutrition Diagnosis 08/29/2021 08/09/2021 Problems Swallowing difficulty Swallowing difficulty Etiology (related to) Location of radiation therapy Location of radiation therapy Signs and Symptoms Esophagitis Esophagitis Estimated needs based on 57.7 [id number] kcals (25-35 kcal/kg) 58-87 g protein (1-1.5 g/kg) ~2L fluid Intervention: * Encouraged continued intake of pureed/soft foods and full liquids. * Discussed trying soupy mashed potatoes (made with butter and milk). * Suggested switching at least some of tea to decaffeinated to support adequate hydration. Follow Up: Call 09/07 Note: Please see Hematology/Oncology malnutrition flowsheet for complete RD assessment/documentation documented in this encounter Plan of Treatment Upcoming Encounters Date Type Department Care Team (Late st Contact Info) Description 08/30/2024 2:00 PM EST Office Visit Hematology/Oncology at [address] [phone] Mars Conley MD [facility] DR HEMATOLOGY AND ONCOLOGY [place], [place] [phone] Cailin Marrero APRN [address] [place] [address] DR HEMATOLOGY [place] [address] 09/07/2024 9:00 AM EST Office Visit [place] [address] Raven Alvarado MD [facility] [place] [address] 10/04/2024 1:15 PM EST Office [place] [phone] Feliciano Shay, [facility] [place] [address] documented as of this encounter Visit Diagnoses Diagnosis Small cell carcinoma of lung Malignant neoplasm of bronchus and lung, unspecified site documented in this encounter Care Teams Live Games Dealer Relationship Specialty Start Date End Date Marco Antonio-Nini Landrum MD [address] [address] PCP - General 06/26/10 documented as of this encounter
--- OUTSIDE RECORDS SUMMARY | 2024-08-27 00:48 | XMS_ITS | Encounter Summary ---
Author Organization [facility] Address [facility] [place] [address] Care Team Providers Care Roll Finisher Name Role Phone Nini Machado MD Primary Care Provider [phone] Reason for Visit * Reason Comments Chemotherapy C3D1 Carbo/Etop * Treatment/Therapy Plan Authorization (Routine) - Closed Specialty Diagnoses / Procedures Referred By Contlolita t Referred To Contact Diagnoses Small cell carcinoma of lung Juan Fitzpatrick MD [facility] [place] [address] Referral ID Status Reason Start Date Expiration Date Visits Re quested Visits Authorized [id number] Closed 06/21/2021 06/21/2022 99 99 Encounter Details Date Type Department Care Team (Late Contact Info) Description 08/29/2021 10:00 AM EST Infusion Hematology Oncology at [address] [phone] Small cell carcinoma of lung Social History [...] Progress Notes * Kamilah Nichols RN - 08/29/2021 10:00 AM EST INFUSION THERAPY ADMINISTRATION NOTES DIAGNOSIS: SCLC CYCLE #:Cycle 3 Day1 Carboplatin, Etoposide REASON FOR VISIT: to receive chemo therapy SUBJECTIVE Stefanie offers no complaints today. She was seen by Faye Pritchett APRN today and is ready for treatment. OBJECTIVE LAB DATA: WBC:6.94 RBC: 3.76 Plt 351 ANC: 5.09 [...] PM EST Office Visit Hematology/Oncology at [address] [phone] Mars Conley MD [facility] DR [place] [address] Cailin Marrero APRN [address] [place] [address] DR HEMATOLOGY AND ONCOLOGY [place], [place] [id number] 09/07/2024 9:00 AM EST Office [place] [phone] Raven Alvarado MD [facility] [place] [address] 10/04/2024 1:15 PM EST Office [place] [address] Feliciano Shay, [facility] [place] [address] documented as of this encounter Visit Diagnoses Diagnosis Small cell carcinoma of lung Malignant neoplasm of bronchus and lung, unspecified site documented in this encounter Administered Medications Inactive Administered Medications - up to 3 most recent administrations Medication Order MAR Action Action Date Dose Rate Site aprepitant (CINVANTI) injection Emul 130 mg 130 mg, Intravenous, Administer over 2 Minutes, ONCE, 1 dose, On Fri08/29/21 at 1015, Alternative administration of IV push over 2 minutes is a recommendation from the jacquard card cutter. Administer prior to chemotherapy., Routine Given 08/29/2021 10:29 AM EST 130 mg CARBOplatin (Paraplatin) 383 mg in dextrose 5% 288.3 mL infusion 383 mg (rounded from 382.5 mg, Target AUC = 5), Intravenous, ONCE, 1 dose, On Fri08/29/21 at 1115, Administer over 30 Minutes, Warning Vesicant/Irritant Medication New Bag 08/29/2021 11:47 AM EST 383 mg 576.6 mL/hr dexamethasone (Decadron) 20 mg in sodium chloride 0.9% 55 mL infusion 20 mg, Intravenous, ONCE, 1 dose, On Fri08/29/21 at 1015, Administer over 30 Minutes, Administer prior to chemotherapy New Bag 08/29/2021 10:31 AM EST 20 mg 110 mL/hr diphenhydrAMINE (Benadryl) (50 mg/mL) injection 25 mg 25 mg, Intravenous, ONCE, 1 dose, On Fri08/29/21 at 1015, Routine Given 08/29/2021 10:27 AM EST 25 mg etoposide (Vepesid) 165 mg in sodium chloride 0.9% Non-PVC 508.25 mL infusion 165 mg (100 mg/m2/dose ? 1.65 m2 Treatment Plan BSA from Recorded weight), Intravenous, ONCE, 1 dose, On Fri08/29/21 at 1115, Administer over 90 Minutes, Warning Vesicant/Irritant Medication New Bag 08/29/2021 12:32 PM EST 165 mg 338.8 mL/hr famotidine (Pepcid) (10 mg/mL) injection 20 mg 20 mg, Intravenous, ONCE, 1 dose, On Fri08/29/21 at 1015 Given 08/29/2021 10:25 AM EST 20 mg palonosetron (Aloxi) (0.05 mg/mL) injection 0.25 mg 0.25 mg, Intravenous, ONCE, 1 dose, On Fri08/29/21 at 1015, Administer over 30 seconds., Routine Given 08/29/2021 10:23 AM EST 0.25 mg documented in this encounter Care Teams Roll Finisher Relationship Specialty Start Date End Date Marco Antonio-Nini Landrum MD [address] [address] PCP - General 06/26/10 documented as of this encounter
--- OUTSIDE RECORDS SUMMARY | 2024-08-27 00:48 | XMS_ITS | Encounter Summary ---
Author Organization [facility] Address [facility] [place] [address] Care Team Providers Care Development Representative Name Role Phone Nini Machado MD Primary Care Provider [phone] Encounter Details Date Type Department Care Team (Late st Contact Info) Description 07/30/2021 3:45 PM EST Office Visit Radiation Oncology at [address] [phone] Senthil Muller MD [facility] [place] [address] PATIENT NOT SEEN Social History Tobacco Use Types Packs/Day Years [...] Progress Notes * Senthil Muller MD - 07/30/2021 3:45 PM EST This patient was not seen in this encounter. documented in this encounter Plan of Treatment Upcoming Encounters Date Type Department Care Team (Late st Contact Info) Description 08/30/2024 2:00 PM EST Office Visit Hematology/Oncology at [address] [phone] Mars Conley MD [facility] DR [place] [address] Cailin Marrero APRN [address] [place] [address] DR [place]EMATOLOGY [place] [address] 09/07/2024 9:00 AM EST Office Visit [place] [address] Raven Alvarado MD [facility] [place] [address] 10/04/2024 1:15 PM EST Office [place] [phone] Feliciano Sahy, [facility] [place] [address] documented as of this encounter Visit Diagnoses Diagnosis DH PATIENT NOT SEEN documented in this encounter Care Teams Development Representative Relationship Specialty Start Date End Date Marco Antonio-Nini Landrum MD [address] [address] PCP - General 06/26/10 documented as of this encounter
--- OUTSIDE RECORDS SUMMARY | 2024-08-27 00:48 | XMS_ITS | Encounter Summary ---
Author Organization [facility] Address [facility] [place] [address] Care Team Providers Care Cigarette Stamper Name Role Phone Nini Machado MD Primary Care Provider [phone] Encounter Details Date Type Department Care Team (Late st Contact Info) Description 08/30/2021 Notes Only Hematology/Oncology at [address] [phone] Nancy Parks, ENVIRONMENTAL STUDIES DEPARTMENT CHAIR OFFICE OF CARE MANAGEMENT Social History Tobacco [...] Progress Notes * Nancy Parks MSW - 08/30/2021 9:17 AM EST Follow up with pt and sister in law. Pt in infusion. Sister in law waiting in library. ENVIRONMENTAL STUDIES DEPARTMENT CHAIR receivedpt's paperwork for mileage reimbursement through [employer]. Reviewed visit dates and signed form. Faxed to [place] [employer] per pt request. Faxed [employer] form to pt's vet for pet verification. Once form complete and faxed back ENVIRONMENTAL STUDIES DEPARTMENT CHAIR will submit pt's application to [employer] per her request. Pt requesting additional gas card as cost of travel continues a hardship and she has not received mileage reimbursement yet. Assisted pt with 1/$25 gas card from [employer]. Care Coordination Financial resources Transportation resources Add: Received Vet verification form. Faxed completed application to [employer] per pt's request documented in this encounter Plan of Treatment Upcoming Encounters Date Type Department Care Team (Late st Contact Info) Description 08/30/2024 2:00 PM EST Office Visit Hematology/Oncology at [address] [phone] Mars Conley MD [facility] [address] [place] [address] Cailin Marrero, [address] [place] [address] 09/07/2024 9:00 AM EST Office [place] [phone] Raven Alvarado MD [facility] [place] [address] 10/04/2024 1:15 PM EST [place] [phone] Feliciano Shay, DO [facility] DR NEUROLOGY DEPT [place], [place] [id number] documented as of this encounter Visit Diagnoses Not on filedocumented in this encounter Care Teams Cigarette Stamper Relationship Specialty Start Date End Date Marco Antonio-Nini Landrum MD [address] [facility] 3 [place] [address] PCP - General 06/26/10 documented as of this encounter
--- OUTSIDE RECORDS SUMMARY | 2024-08-27 00:48 | XMS_ITS | Encounter Summary ---
Author Organization [facility] Address [facility] [place] [address] Care Team Providers Care Lead Front End Developer Name Role Phone Nini Machado MD Primary Care Provider [phone] Encounter Details Date Type Department Care Team (Late st Contact Info) Description 07/30/2021 9:30 AM EST Office Visit Hematology/Oncology at [address] [phone] Mars Conley MD [facility] DR HEMATOLOGY [place] [address] Faye Pritchett APRN [facility] [place] [address] Small cell carcinoma of lung (Primary Dx); Diverticulitis of large intestine without perforation or abscess with bleeding Social History Tobacco Use Types Packs/Day Years [...] Sign Reading Time Taken Comments Blood Pressure 121/54 07/30/2021 9:33 AM EST Pulse 65 07/30/2021 9:33 AM EST Temperature 36.2 ??C (97.1 ??F) 07/30/2021 9:33 AM ES T Respiratory Rate 18 07/30/2021 9:33 AM EST Oxygen Saturation 99% 07/30/2021 9:33 AM EST Inhaled Oxygen Concentration - - Weight 58.5 kg (129 lb) 07/30/2021 9:33 AM EST Height 166.4 cm (5' 5.5) 07/30/2021 9:33 AM EST Body Mass Index 21.14 07/30/2021 9:33 AM EST documented in this encounter Progress Notes * Mars Conley MD - 07/30/2021 9:30 AM EST Images from the original note were not included. Hematology & Medical Oncology [address] [address] I am seeing Stefanie Pina for management of her small cell lung cancer ASSESSMENT AND PLAN: Stefanie Pina is a 65 y.o. former smoker diagnosed with limited stage small cell lung cancer as detailed below. She began treatment with carboplatin (due to hearing loss) and etoposide on 07.04.21. Admitted with diverticulitis on 07.17.21. Had been scheduled to start concurrent chemotherapy/RT (C2) today but given her recent admission, the fact that she just completed antibiotics 2 days and she still has some tenderness on exam will hold initiation of concurrent another week. Discussed with Dr. Muller of radiation oncology. Plan: - Hold treatment today - Plan to resume treatment next week with BID concurrent radiation Mars Conley MD, MS 07/30/2021 Medical Oncology & Hematology [facility] CC: Nini Machado MD HISTORY OF PRESENT ILLNESS: Was admitted to [facility] for diverticulitis and treated with IV abx and then discharged on 07/23. Sent home on 2 antibiotics though she's not sure which. Completed them 2 days ago. Feels pretty good at this point. Has some diifficulties with sleep. Is on morphine 15mg ER BID prescribed by her PCP. Notes that she has been cutting the pills in half. She has an appt with her PCP in a few days. She will plan to take one pill 15mg QHS for now. Had difficulty with swallowing and was started on nystatin with improvement in her sx. Joined by María During the hospital she stopped the hyoscyamine and dicyclomine and feels better without these so doesn't plan to resume. Oncology Overview: Cancer Staging Small cell carcinoma [...] Appears amenable to transbronchoscopic biopsy. Referral to certified lactation educator advised. 06.06.21 CT Abdomen Pelvis 1. .No [...] C1D1 Carboplatin/Etoposide 07.17.[address] [facility] with abdominal pain and found to have acute uncomplicated diverticulitis. Treated with abx and discharged on ONCBCN ONCOLOGY (AMB) 07/04/2021 07/05/2021 07/06/2021 Day, Cycle Day 1, Cycle 1 Day 2, Cycle 1 Day 3, Cycle 1 CARBOplatin (Paraplatin) IV 408 mg - - dexamethasone (PF) 10 mg/mL (Decadron) IV 10 mg 10 mg 10 mg etoposide 20 mg/mL (Vepesid) IV 100 mg/m2/dose = 165 mg 100 mg/m2/dose = 165 mg 100 mg/m2/dose = 165 mg Past Medical History: Diagnosis Date ??? Back pain, chronic ??? Depression ??? Hemorrhoids, external ??? [place] (hard of hearing) ??? Leg cramps ??? Migraines ??? Rhinitis, allergic ??? Tobacco dependence ??? Tubular adenoma of colon ??? Venous insufficiency Past Surgical History: Procedure Laterality Date ??? CYSTOSCOPY 2009 for microscopic hematuria ??? HEMORRHOID SURGERY ??? PRO [facility] EBUS GUIDED SAMPL 1/2 NODE STATION/STRUX N/A 06/14/2021 BRONCH, W ENDOBRONCHIAL ULTRASOUND (EBUS) GUIDED SAMPLING, 1/2 NODES (WRVU 4.71) performed by Sebastian Hadley MD at [facility] ??? PRO BRONCHOSCOPY, DIAGNOSTIC W LAVAGE N/A 06/14/2021 BRONCHOSCOPY, RIGID OR FLEXIBLE, WITH BRONCHIAL ALVEOLAR LAVAGE (WRVU 2.88) performed by Sebastian Hadley MD at [facility] ??? PRO COLONOSCOPY, FLEX, W/DIR SUBMUC INJECT N/A 06/27/2021 COLONOSCOPY WITH DIRECTED SUBMUCOSAL INJ (WRVU 3.66) performed by Marichuy Jimenez MD at [facility] ??? PRO COLONOSCOPY, REMV LESN, SNARE N/A 06/27/2021 COLONOSCOPY, POLYPECTOMY, REMOVAL LESION BY SNARE (WRVU 4.67) performed by Marichuy Jimenez MD at [facility] Allergies Allergen Reactions ??? Aspirin CIS - Anaphylaxis ??? Nitrofurantoin Monohyd/M-Cryst Other reaction(s): hands tingling, pins and needles, face swollen. ??? Nsaids (Non-Steroidal Anti-Inflammatory Drug) Other reaction(s): Shock / Unconsciousness; ??? Penicillins Other reaction(s): Dermatological problems, e.g., rash, hives; ??? Red Blood Cells Other (See Comments) Antibodies-Difficult to Crossmatch DO NOT REMOVE Please contact the Blood Bank at [phone] for questions. ??? Sulfamethoxazole-Trimethoprim Other reaction(s): Respiratory problems, e.g., wheezing;Dermatological problems, e.g., rash, hives; ??? Methadone Other reaction(s): vomiting ??? Mold Extracts ??? Mushroom Flavor Family History Problem Relation Age of Onset ??? Colorectal Cancer Nephew No history of lung cancer. PHYSICAL EXAMINATION: Wt Readings from Last 3 Encounters: 07/30/21 58.5 kg (129 lb) 07/12/21 58.7 kg (129 lb 6.4 oz) 07/04/21 58.1 kg (128 lb) Temp Readings from Last 3 Encounters: 07/30/21 36.2 ??C (97.1 ??F) (Temporal) 07/12/21 36.2 ??C (97.1 ??F) 07/06/21 37.1 ??C (98.7 ??F) (Temporal) BP Readings from Last 3 Encounters: 07/30/21 121/54 07/12/21 165/77 07/06/21 126/60 Pulse Readings from Last 3 Encounters: 07/30/21 65 07/12/21 67 07/06/21 55 Physical Exam BP 121/54 (Patient Position: Sitting) Pulse 65 Temp 36.2 ??C (97.1 ??F) (Temporal) Resp 18 Ht 166.4 cm (5' 5.5) Wt 58.5 kg (129 lb) SpO2 99% BMI 21.14 kg/m?? Constitutional: Oriented to person, place, and time. Appears well-developed. No distress. Mouth/Throat: Oropharynx is clear and moist. No oropharyngeal exudate. No scleral icterus. No Thrush Eyes: Anicteric. Cardiovascular: Regular rate and regular rhythm. Exam reveals no friction rub. No murmur heard. Pulmonary/Chest: Normal respiratory effort. Lung clear to ascultation bilaterally. No wheezes or rales. Abdominal: +BS. Soft. Has significant tenderness with palpation in the LLQ and RLQ Musculoskeletal: Generally normal strength UE and LE. Normal range of motion. No edema. Lymphadenopathy: No cervical adenopathy. Neurological: Alert and oriented to person, place, and time. Grossly non-focal. Skin: Skin is warm and dry. No rash noted. No erythema. Psychiatric: Normal mood and affect. Thought content normal. Data Review: I reviewed the labs from her recent admission to [facility]. 07.17.21 CT Abdomen I reviewed the images personally [...] 2:00 PM EST Office Visit Hematology/Oncology at [address] [phone] Mars Conley MD [facility] DR HEMATOLOGY [place] [address] Cailin Marrero APRN [address] [place] [address] [place] [address] 09/07/2024 9:00 AM EST Office [place] [phone] Raven Alvarado MD [facility] [place] [address] 10/04/2024 1:15 PM EST Office [place] [phone] Feliciano Shay, [facility] [place] [address] documented as of this encounter Visit Diagnoses Diagnosis Small cell carcinoma of lung- Primary Malignant neoplasm of bronchus and lung, unspecified site Diverticulitis of large intestine without perforation or abscess with bleeding Diverticulitis of colon with hemorrhage documented in this encounter Care Teams Lead Front End Developer Relationship Specialty Start Date End Date Marco Antonio-Nini Landrum MD [address] [address] PCP - General 06/26/10 documented as of this encounter
--- OUTSIDE RECORDS SUMMARY | 2024-08-27 00:48 | XMS_ITS | Encounter Summary ---
Author Organization [facility] Address [facility] [place] [address] Care Team Providers Care Consumer Analyst Name Role Phone Nini Machado MD Primary Care Provider [phone] Reason for Visit * Reason Comments Chemotherapy C2D2 Etoposide * Treatment/Therapy Plan Authorization (Routine) - Closed Specialty Diagnoses / Procedures Referred By Aldo sotelo Referred To Contact Diagnoses Small cell carcinoma of lung Juan Fitzpatrick MD [facility] [place] [address] Referral ID Status Reason Start Date Expiration Date Visits Re quested Visits Authorized [id number] Closed 06/21/2021 06/21/2022 99 99 Encounter Details Date Type Department Care Team (Late Contact Info) Description 08/07/2021 9:00 AM EST Infusion Hematology Oncology at [address] [phone] Small cell carcinoma of lung Social History [...] Sign Reading Time Taken Comments Blood Pressure 124/50 08/07/2021 9:21 AM EST Pulse 73 08/07/2021 9:21 AM EST Temperature 36.7 ??C (98 ??F) 08/07/2021 9:21 AM EST Respiratory Rate 20 08/07/2021 9:21 AM EST Oxygen Saturation 95% 08/07/2021 9:21 AM EST Inhaled Oxygen Concentration - - Weight 60.1 kg (132 lb 6.4 oz) 08/07/2021 9:21 A M EST Height 166.4 cm (5' 5.51) 08/07/2021 9:21 AM ES T Body Mass Index 21.69 08/07/2021 9:21 AM EST documented in this encounter Progress Notes * Kamilah Nichols RN - 08/07/2021 9:00 AM EST INFUSION THERAPY ADMINISTRATION NOTES DIAGNOSIS: SCLC CYCLE #:Cycle 2 Day2 Etoposide REASON FOR VISIT: to receive chemo therapy SUBJECTIVE Stefanie states she feels well today. She is moving her bowels as usual, she does report some intolerance to cold beverages. She denies difficulty swallowing. OBJECTIVE LAB DATA: 08/06/20 WBC:5.28 RBC: 3.86 Plt 293 ANC: 3.31 BUN:19 Cr:0.9 IV ACCESS: PIV Pre administration: Chemotherapy orders independently verified for drug name, route, and dosage per patient's height, weight and BSA by Ratna Nichols RN & pharmacist on-site REACTIONS (DESCRIPTION, TIME, INTERVENTION AND EFFECTIVENESS) none ASSESSMENT Flakita was awake, alert and tolerated treatment well. She tried keeping the IV in place for tomorrow's treatment, but it became too uncomfortable for her, the IV was discontinued after her second radiation treatment this afternoon. PLAN Return to clinic tomorrow for day 3. documented in this encounter Plan of Treatment Upcoming Encounters Date Type Department Care Team (Late st Contact Info) Description 08/30/2024 2:00 PM EST Office Visit Hematology/Oncology at [address] [phone] Mars Conley MD [facility] DR HEMATOLOGY [place] [address] Cailin Marrero APRN [address] [place] [address] DR [place] [address] 09/07/2024 9:00 AM EST Office [place] [phone] Raven Alvarado MD [facility] [place] [address] 10/04/2024 1:15 PM EST Office [place] [phone] Feliciano Shay, [facility] [place] [address] documented as of this encounter Visit Diagnoses Diagnosis Small cell carcinoma of lung Malignant neoplasm of bronchus and lung, unspecified site documented in this encounter Administered Medications Inactive Administered Medications - up to 3 most recent administrations Medication Order MAR Action Action Date Dose Rate Site dexamethasone (Decadron) injection 10 mg 10 mg, Intravenous, ONCE, 1 dose, On Fri08/07/21 at 0945, Administer prior to chemotherapy Given 08/07/2021 10:31 AM EST 10 mg diphenhydrAMINE (Benadryl) (50 mg/mL) injection 25 mg 25 mg, Intravenous, ONCE, 1 dose, On Fri08/07/21 at 0945, Routine Given 08/07/2021 10:27 AM EST 25 mg etoposide (Vepesid) 165 mg in sodium chloride 0.9% Non-PVC 508.25 mL infusion 165 mg (100 mg/m2/dose ? 1.65 m2 Treatment Plan BSA from Recorded weight), Intravenous, ONCE, 1 dose, On Fri08/07/21 at 1015, Administer over 90 Minutes, Warning Vesicant/Irritant Medication New Bag 08/07/2021 11:26 AM EST 165 mg 338.8 mL/hr famotidine (Pepcid) (10 mg/mL) injection 20 mg 20 mg, Intravenous, ONCE, 1 dose, On Fri08/07/21 at 0945 Given 08/07/2021 10:29 AM EST 20 mg documented in this encounter Care Teams Consumer Analyst Relationship Specialty Start Date End Date Nini Machado MD [address] [place] [id number] PCP - General 06/26/10 documented as of this encounter
--- OUTSIDE RECORDS SUMMARY | 2024-08-27 00:48 | XMS_ITS | Encounter Summary ---
Author Organization [facility] Address [facility] [place] [address] Care Team Providers Care Director Of Provider Relations Name Role Phone Nini Machado MD Primary Care Provider [phone] Encounter Details Date Type Department Care Team (Late st Contact Info) Description 08/23/2021 8:15 AM EST Office Visit Radiation Oncology at [address] [phone] Jorge Siegel MD [address] [place] [address] [place] [address] Small cell carcinoma of lung [...] Sign Reading Time Taken Comments Blood Pressure 123/54 08/23/2021 8:08 AM EST Pulse 98 08/23/2021 8:08 AM EST Temperature 36.8 ??C (98.2 ??F) 08/23/2021 8:08 AM ES T Respiratory Rate 18 08/23/2021 8:08 AM EST Oxygen Saturation 95% 08/23/2021 8:08 AM EST Inhaled Oxygen Concentration - - Weight 58 kg (127 lb 12.8 oz) 08/23/2021 8:08 AM EST Height 165.1 cm (5' 5) 08/23/2021 8:08 AM EST Body Mass Index 21.27 08/23/2021 8:08 AM EST documented in this encounter Progress Notes * Jorge Siegel MD - 08/23/2021 8:15 AM EST Images from the original note were not included. RADIATION ONCOLOGY - Weekly On Treatment Visit Note 08/23/21 JORGE SIEGEL MD Radiation Oncology [facility] [phone] (paging tool room lathe operator) Pager #[phone] PATIENT IDENTIFICATION Name Stefanie Pina Date of [...] Gy in 30 fractions BID Current Dose: 40.5 Gy in 27 fractions Steerer Piña from Current Plan (minimum 45 Gy isodose volume shown): INTERVAL HISTORY General: Overall feels fair. Diagnosed w sinusitis by PCP and is taking doxycycline. Chest: No SOB. Stable RIOS. +Esophagitis, carafate/BMX very helpful. No pain at rest. Pain: From esophagitis. Nutrition: Weight at start of therapy 132lbs --> 126lbs --> 127lbs today. IVAN Brown Page following. MEDS Medications 08/23/21 0818 Medication Sig Taking? UNABLE TO FIND Fiber drink prn to form bowels Yes UNABLE TO FIND as needed. Tucks Yes sertraline (Zoloft) 50 mg Tablet Take 50 [...] USING INHALER EVERY 4 HOURS NEEDED Yes estradioL (Estrace) 0.01 % (0.1 mg/gram) Cream PRN: 7days prior to pap smear Yes EPINEPHrine (EpiPen) 0.3 mg/0.3 mL Auto-Injector EPIPEN 2-GIOVANNA 0.3 MG/0.3ML SOAJ Yes pravastatin (Pravachol) 20 mg Tablet take 1 tablet by mouth once daily for cholesterol Yes montelukast (Singulair) 10 mg Tablet daily. Yes doxycycline monohydrate (Monodox) 100 mg Capsule prochlorperazine (Compazine) 10 mg Tablet Take 1 tablet by mouth every 6 hours as needed for Nausea. Patient not taking: Reported on 07/30/2021 albuteroL (Proventil) 2.5 mg /3 mL (0.083 %) Solution for Nebulization ALBUTEROL SULFATE (2.5 MG/3ML) 0.083% NEBU IMAGING / LABS: See [facility] for details. EXAM: BP 123/54 (Patient Position: Sitting) Pulse 98 Temp 36.8 ??C (98.2 ??F) (Temporal) Resp 18 Ht 165.1 cm (5' 5) Wt 58 kg (127 lb 12.8 oz) SpO2 95% BMI 21.27 kg/m?? Constitutional: she appears well-developed and well-nourished. [...] radiotherapy: Tolerating as anticipated. Continue as planned. Completes tomorrow. Esophagitis: Cont BMX/carafate, Prilosec, Tylenol. I advised her that sx can continue for another 1-[address] following. Followup: RTC as needed - she has continued f/u with Dr Conley's clinic for Cy 3-4 of chemotherapy starting next week. documented in this encounter Plan of Treatment Upcoming Encounters Date Type Department Care Team (Late st Contact Info) Description 08/30/2024 2:00 PM EST Office Visit Hematology/Oncology at [address] [phone] Mars Conley MD [facility] DR HEMATOLOGY [place] [address] Cailin Marrero APRN [address] [place] [address] DR [place] [address] 09/07/2024 9:00 AM EST Office [place] [phone] Raven Alvarado MD [facility] [place] [address] 10/04/2024 1:15 PM EST Office [place] [phone] Feliciano Shay, [facility] [place] [address] documented as of this encounter Visit Diagnoses Diagnosis Small cell carcinoma of lung Malignant neoplasm of bronchus and lung, unspecified site documented in this encounter Care Teams Director Of Provider Relations Relationship Specialty Start Date End Date Marco Antonio-Nini Landrum MD [address] [address] PCP - General 06/26/10 documented as of this encounter
--- OUTSIDE RECORDS SUMMARY | 2024-08-27 00:48 | XMS_ITS | Encounter Summary ---
Author Organization [facility] Address [facility] [place] [address] Care Team Providers Care Senior Clinical Data Coordinator Name Role Phone Nini Machado MD Primary Care Provider [phone] Encounter Details Date Type Department Care Team (Late st Contact Info) Description 08/06/2021 10:00 AM EST Office Visit Hematology/Oncology at [address] [phone] Mars Conley MD [facility] [address] [place] [address] Faye Pritchett APRN [facility] [place] [address] Small cell carcinoma of lung Social History [...] Sign Reading Time Taken Comments Blood Pressure 155/65 08/06/2021 9:44 AM EST Pulse 74 08/06/2021 9:44 AM EST Temperature 36.6 ??C (97.9 ??F) 08/06/2021 9:44 AM ES T Respiratory Rate 18 08/06/2021 9:44 AM EST Oxygen Saturation 98% 08/06/2021 9:44 AM EST Inhaled Oxygen Concentration - - Weight 59.1 kg (130 lb 6.4 oz) 08/06/2021 9:44 A M EST Height 166.4 cm (5' 5.51) 08/06/2021 9:44 AM ES T Body Mass Index 21.36 08/06/2021 9:44 AM EST documented in this encounter Progress Notes * Mars Conley MD - 08/06/2021 10:00 AM EST Images from the original note were not included. Hematology & Medical Oncology [address] [phone] I am seeing Stefanie Pina for management [...] assessed and acceptable for ongoing treatment. She will start concurrent BID radiation today as well - Will add extra predmedications and dose decadron at 20mg for D1 given reaction with C1 - RTC in 3 weeks for C3 # Diverticulitis - s/p admission 07/2021. Appears to have recovered well # Chronic back pain - she weaned herself off opioids and is now using just MJ gummies with decent control. Mars Conley MD, MS 08/06/2021 Medical Oncology & Hematology [facility] CC: Nini Machado MD HISTORY OF PRESENT ILLNESS: Last seen 07/30/2021 No abdominal pain Feels overall well Feels better than last week. More energy. Eating better. Gained some weight. No nausea. Stopped the morphine QHS altogether. Taking 1 MJ gummy 1/2 in the morning and 1/2 at nihgt and thishas relieved her back pain to an acceptable pain. No fevers Mood seems good. She's off SSRI. Uses what sounds like CBT to help Has some diifficulties with sleep. Swallowing is good. No mouth sores. Oncology Overview: Cancer Staging Small cell carcinoma [...] Appears amenable to transbronchoscopic biopsy. Referral to cup setter lockstitch advised. 06.06.21 CT Abdomen Pelvis 1. .No [...] Course: 07.04.21 C1D1 Carboplatin/Etoposide 07.17.21 Admitted to [facility] with abdominal pain and found to have [...] REMOVE Please contact the Blood Bank at [phone] for questions. ??? Sulfamethoxazole-Trimethoprim Other reaction(s): Respiratory problems, e.g., wheezing;Dermatological problems, e.g., rash, hives; ??? Methadone Other reaction(s): vomiting ??? Mold Extracts ??? Mushroom Flavor PHYSICAL EXAMINATION: Wt Readings from Last 3 Encounters: 08/06/21 59.1 kg (130 lb 6.4 oz) 07/30/21 58.5 kg (129 lb) 07/12/21 58.7 kg (129 lb 6.4 oz) Temp Readings from Last 3 Encounters: 08/06/21 36.6 ??C (97.9 ??F) (Temporal) 07/30/21 36.2 ??C (97.1 ??F) (Temporal) 07/12/21 36.2 ??C (97.1 ??F) BP Readings from Last 3 Encounters: 08/06/21 155/65 07/30/21 121/54 07/12/21 165/77 Pulse Readings from Last 3 Encounters: 08/06/21 74 07/30/21 65 07/12/21 67 Physical Exam BP 155/65 (Patient Position: Sitting) Pulse 74 Temp 36.6 ??C (97.9 ??F) (Temporal) Resp 18 Ht 166.4 cm (5' 5.51) Wt 59.1 kg (130 lb 6.4 oz) SpO2 98% BMI 21.36 kg/m?? Constitutional: Oriented to person, place, and time. Appears well-developed. No distress. Mouth/Throat: Oropharynx is clear and moist. No oropharyngeal exudate. No scleral icterus. No Thrush Eyes: Anicteric. Cardiovascular: Regular rate and regular rhythm. Exam reveals no friction rub. No murmur heard. Pulmonary/Chest: Normal respiratory effort. Lung clear to ascultation bilaterally. No wheezes or rales. Abdominal: +BS. Soft. No tenderness this wek Musculoskeletal: Generally normal strength UE and LE. Normal range of motion. No edema. Lymphadenopathy: No cervical adenopathy. Neurological: Alert and oriented to person, place, and time. Grossly non-focal. Skin: Skin is warm and dry. No rash noted. No erythema. Psychiatric: Normal mood and affect. Thought content normal. Data Review: 1.3. White blood cell count 5.28 hemoglobin 11.7 [...] Office Visit Hematology/Oncology at [address] [phone] Mars Conley MD [facility] [place] [address] Cailin Marrero [address] [place] [address] 09/07/2024 9:00 AM EST Office Visit [place] [address] Raven Alvarado MD [facility] [place] [address] 10/04/2024 1:15 PM EST Office Visit Neurology at [place] [phone] Feliciano Shay, [facility] [place] [address] documented as of this encounter Visit Diagnoses Diagnosis Small cell carcinoma of lung Malignant neoplasm of bronchus and lung, unspecified site documented in this encounter Care Teams Senior Clinical Data Coordinator Relationship Specialty Start Date End Date Marco Antonio-Nini Landrum MD [address] [address] PCP - General 06/26/10 documented as of this encounter
--- OUTSIDE RECORDS SUMMARY | 2024-08-27 00:48 | XMS_ITS | Encounter Summary ---
Author Organization [facility] Address [facility] [place] [address] Care Team Providers Care Forestry Contractor Name Role Phone Nini Machado MD Primary Care Provider [phone] Reason for Visit * Reason Comments On Treatment Visit Encounter Details Date Type Department Care Team (Late st Contact Info) Description 08/14/2021 4:15 PM EST Office Visit Radiation Oncology at [address] [phone] Jenny Beckford MD [facility] [place] [address] Small cell carcinoma of lung [...] Sign Reading Time Taken Comments Blood Pressure 107/48 08/14/2021 3:48 PM EST Pulse - - Temperature 36.7 ??C (98.1 ??F) 08/14/2021 3 :48 PM EST Respiratory Rate 18 08/14/2021 3:48 PM EST Oxygen Saturation 97% 08/14/2021 3:4 8 PM EST Inhaled Oxygen Concentration - - Weight 58.2 kg (128 lb 3.2 oz) 08/14/19 22 3:48 PM EST with shoes Height - - Body Mass Index 21 08/10/2021 9:14 AM EST documented in this encounter Progress Notes * Jenny Beckford MD - 08/14/2021 4:15 PM EST Images from the original note were not included. 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 Chest: No new cough or SOB +Esophagitis. Avoids hot liqs/solids & eats soft solids; not needing to take BMX/carafate. Pain: Mild pain with swallowing. Nutrition: Weight at start of therapy 132lbs --> 128lbs today. IVAN Brown Page following. MEDS Medications 08/14/21 2352 Medication Sig Taking? UNABLE TO FIND Fiber drink prn to form bowels Yes sertraline (Zoloft) 50 mg Tablet Take [...] USING INHALER EVERY 4 HOURS NEEDED Yes EPINEPHrine (EpiPen) 0.3 mg/0.3 mL Auto-Injector EPIPEN 2-GIOVANNA 0.3 MG/0.3ML SOAJ Yes pravastatin (Pravachol) 20 mg Tablet take 1 tablet by mouth once daily for cholesterol Yes albuteroL (Proventil) 2.5 mg /3 mL (0.083 %) Solution for Nebulization ALBUTEROL SULFATE (2.5 MG/3ML) 0.083% NEBU Yes montelukast (Singulair) 10 mg Tablet daily. Yes diphenhydrAMINE/aluminum-magnesium hydroxide with simethicone/lidocaine (BMX) (6.67 mg-0.83 mg-13.33 mg-1.33 mg/mL) oral liquid Take as needed for swallowing pain up to 5x/day. Patient not taking: Reported on 08/10/2021 prochlorperazine (Compazine) 10 mg Tablet Take 1 tablet by mouth every 6 hours as needed for Nausea. Patient not taking: Reported on 07/30/2021 estradioL (Estrace) 0.01 % (0.1 mg/gram) Cream ESTRACE 0.1 MG/GM CREA calcium carbonate (CALCIUM 500 ORAL) Take by mouth. baclofen (LIORESAL) 10 mg tablet IMAGING / LABS: I have personally reviewed this patient's interval portal imaging to confirm accurate positioning and alignment which matches the patient's original approved treatment planning images. EXAM: Temp 36.7 ??C (98.1 ??F) (Temporal) Resp 18 Wt 58.2 kg (128 lb 3.2 oz) Comment: with shoes BMI 21.00 kg/m?? Constitutional: she appears well-developed and well-nourished. [...] PM EST Office Visit Hematology/Oncology at [address] [phone] Mars Conley MD [facility] [address] [place] [address] Cailin Marrero APRN [address] [place] [address] [place] [address] 09/07/2024 9:00 AM EST Office [place] [phone] Raven Alvarado MD [facility] [place] [address] 10/04/2024 1:15 PM EST Office [place] [phone] Feliciano Shay, [facility] [place] [address] documented as of this encounter Visit Diagnoses Diagnosis Small cell carcinoma of lung Malignant neoplasm of bronchus and lung, unspecified site documented in this encounter Care Teams Forestry Contractor Relationship Specialty Start Date End Date Marco Antonio-Nini Landrum MD [address] [facility] 3 [place] [address] PCP - General 06/26/10 documented as of this encounter
--- OUTSIDE RECORDS SUMMARY | 2024-08-27 00:48 | XMS_ITS | Encounter Summary ---
Author Organization [facility] Address [facility] [place] [address] Care Team Providers Care Hand Stripper Name Role Phone Nini Machado MD Primary Care Provider [phone] Encounter Details Date Type Department Care Team (Late st Contact Info) Description 08/20/2021 Notes Only Radiation Oncology at [address] [phone] Monica Monsalve, RN Social History Tobacco Use Types Packs/Day [...] as of this encounter Progress Notes * Monica Monsalve RN - 08/20/2021 2:01 PM EST Images from the original note were not included. Valorie Doyle Rad Onc Nurse Stefnaie is here today for the day she's in the library waiting for her afternoon treatment. But she came out and said her throat and chest hood when she east or drinks. She is wondering if there is something we can do for her. Can you come out and talk to her as she has no phone with her. RN Follow-Up Saw patient while she was in between BID radiation therapy treatments. States that she is noticing more discomfort in the epigastric area. States that it is worse after swallowing food/liquids. States that it tightens up and feels hard inside. States that she started BMX today, prior to eating her lunch and did think it helped some although the sandwich still bothered after swallowing. States that her fruit cup went down well and didn't bother much. She also started Carafate today. Verifies that she is taking Omeprazole 20mg once daily. She denies nausea/vomiting. States that she did cough up some phlegm today, which was clear and without any blood. Advised that she use the BMX prior to eating/drinking and should take per medication instructions, up to 5x daily. Advised that she take the Carafate as ordered also and continue taking the Prilosec.Recommended that she eat small, frequent meals throughout the day instead of large meals. Recommended that she eat softer foods such as eggs, yogurt, fruit cups, applesauce, Ensure, mashed potatoes, etc Patient verbalized understanding and agreement with plan. Instructed that she let us know if pain persists or worsens despite this or if new symptoms develop. Dr. Siegel and Tye Torres, RN notified via this note. documented in this encounter Plan of Treatment Upcoming Encounters Date Type Department Care Team (Late st Contact Info) Description 08/30/2024 2:00 PM EST Office Visit Hematology/Oncology at [address] [phone] Mars Conley MD [facility] DR [place] [address] Cailin Marrero APRN [address] [place] [address] DR [place]Y [place] [address] 09/07/2024 9:00 AM EST Office Visit General Surgery at [place] [phone] Raven Alvarado MD [facility] [place] [address] 10/04/2024 1:15 PM EST Office Visit Neurology at [place] [phone] Feliciano Shay, [facility] [place] [address] documented as of this encounter Visit Diagnoses Not on filedocumented in this encounter Care Teams Hand Stripper Relationship Specialty Start Date End Date Marco Antonio-Nini Landrum MD [address] [place] [address] 3 [place] [address] PCP - General 06/26/10 documented as of this encounter
--- OUTSIDE RECORDS SUMMARY | 2024-08-27 00:48 | XMS_ITS | Encounter Summary ---
Author Organization [facility] Address [facility] [place] [address] Care Team Providers Care Tap Out Operator Name Role Phone Nini Machado MD Primary Care Provider [phone] Encounter Details Date Type Department Care Team (Late st Contact Info) Description 09/19/2021 12:00 PM EST Telephone Hematology/Oncology at [address] [phone] [facility] DR HEMATOLOGY [place] [address] Social History Tobacco Use Types [...] encounter Miscellaneous Notes * Telephone Encounter - Stephanie Baird RD - 09/19/2021 11:44 AM EST Nutrition Follow-Up Spoke with patient over the phone briefly. She did not have treatment this week due to ANC of 560 on .. She reports she continues to do well and eat more solid foods since finishing concurrent BIDradiation on 08/24/21. Patient reports she is maintaining weight of 130#. She does have some gas forwhich she takes gas-x. Wt Readings from Last 3 Encounters: 09/17/21 59.1 kg (130 lb 3.2 oz) 08/31/21 58.5 kg (129 lb) 08/30/21 58.4 kg (128 lb 12.8 oz) Will see patient on 09/24. documented in this encounter Plan of Treatment Upcoming Encounters Date Type Department Care Team (Late st Contact Info) Description 08/30/2024 2:00 PM EST Office Visit Hematology/Oncology at [address] [phone] Mars Conley MD [facility] DR HEMAT[place]Y [place] [address] [address] [place] [address] 09/07/2024 9:00 AM EST Office Visit [place] [phone] Raven Alvarado MD [facility] [place] [address] 10/04/2024 1:15 PM EST Office [place] [phone] Feliciano Shay, [facility] [place] [address] documented as of this encounter Visit Diagnoses Not on filedocumented in this encounter Care Teams Tap Out Operator Relationship Specialty Start Date End Date Marco Antonio-Nini Landrum MD [address] [phone] PCP - General 06/26/10 documented as of this encounter
--- OUTSIDE RECORDS SUMMARY | 2024-08-27 00:48 | XMS_ITS | Encounter Summary ---
Author Organization [facility] Address [facility] [place] [address] Care Team Providers Care Culinary Worker Name Role Phone Nini Machado MD Primary Care Provider [phone] Encounter Details Date Type Department Care Team (Late st Contact Info) Description 08/15/2021 10:00 AM EST Office Visit Hematology/Oncology at [address] [phone] [facility] [place] [address] Small cell carcinoma of lung [...] Progress Notes * Stephanie Baird RD - 08/15/2021 10:00 AM EST Nutrition Progress Note Spoke to patient between her radiation treatments today. She reports she is doing well with eating soft foods. Pain due to esophagitis is not too bothersome at this point. She is eating macaroni and cheese, scrambled eggs with cheese, yogurt, pudding, peanut butter cookies, egg salad, chicken salad, canned peaches and soup. She has some Ensure at home and just started drinking that today (one bottle per day). Provided more coupons for this today. Encouraged PO intake. Will f/u on 08/22. documented in this encounter Plan of Treatment Upcoming Encounters Date Type Department Care Team (Late st Contact Info) Description 08/30/2024 2:00 PM EST Office Visit Hematology/Oncology at [address] [phone] Mars Conley MD [facility] [place] [address] Cailin Marrero [employer] [address] [place] [address] DR [place] [address] 09/07/2024 9:00 AM EST Office [place] [phone] Raven Alvarado MD [facility] [place] [place] [address] 10/04/2024 1:15 PM EST Office [place] [phone] Feliciano Shay, [facility] [place] [address] documented as of this encounter Visit Diagnoses Diagnosis Small cell carcinoma of lung Malignant neoplasm of bronchus and lung, unspecified site documented in this encounter Care Teams Culinary Worker Relationship Specialty Start Date End Date Marco Antonio-Nini Landrum MD 79 [facility] 3 [place] [address] PCP - General 06/26/10 documented as of this encounter
--- OUTSIDE RECORDS SUMMARY | 2024-08-27 00:48 | XMS_ITS | Encounter Summary ---
Author Organization [facility] Address [facility] [place] [address] Care Team Providers Care Industrial Cleaning Technician Name Role Phone Nini Machado MD Primary Care Provider [phone] Encounter Details Date Type Department Care Team (Late st Contact Info) Description 09/07/2021 10:00 AM EST Telephone Hematology/Oncology at [address] [phone] [facility] DR HEMATOLOGY [place] [address] Social History Tobacco Use Types [...] Telephone Encounter - Stephanie Baird RD - 09/07/2021 1:25 PM EST Nutrition Note Spoke with Stefanie over the phone today. She was happy to report that she is feeling better and eating solid foods now including sandwiches and vegetables, basically everything but meats. She continues to drink Ensure Plus once daily. Cold items still provide relief when swallowing, and she is alsostill drinking tea with honey. She thinks her weight is stable. Stefanie did complain of feeling like she has a lot of phlegm production and woke up one night coughing up a lot of phlegm. Will f/u on 09/17. documented in this encounter Plan of Treatment Upcoming Encounters Date Type Department Care Team (Late st Contact Info) Description 08/30/2024 2:00 PM EST Office Visit Hematology/Oncology at [address] [phone] Mars Conley MD [facility] DR HEMATOLOGY [place] [address] Cailin Marrero APRN [address] [place] [address] DR [place] [address] 09/07/2024 9:00 AM EST Office Visit [place] [phone] Raven Alvarado MD [facility] [place] [address] 10/04/2024 1:15 PM EST Office [place] [phone] Feliciano Shay, [facility] [place] [address] documented as of this encounter Visit Diagnoses Not on filedocumented in this encounter Care Teams Industrial Cleaning Technician Relationship Specialty Start Date End Date Marco Antonio-Nini Landrum MD [address] [place] [address] PCP - General 06/26/10 documented as of this encounter
--- OUTSIDE RECORDS SUMMARY | 2024-08-27 00:49 | XMS_ITS | Encounter Summary ---
Author Organization [facility] [place] [address] Care Team Providers Care Security Sme Name Role Phone Nini Machado MD Primary Care Provider [phone] Reason for Referral * Diagnostic Test (Routine) - Closed Specialty Diagnoses / Procedures Referred By Aldo sotelo Referred To Contact Radiology Diagnoses Small cell carcinoma of lung Procedures CT Chest w Contrast Juan Fitzpatrick MD [facility] [place] [address] [facility] [address] [place] [address] Referral ID Status Reason Start Date Expiration Date V isits Requested Visits Authorized [id number] Closed Specialty Service Requested 07/12/2021 01/09/2023 1 1 Encounter Details Date Type Department Care Team (Late st Contact Info) Description 07/11/2021 Orders Only Hematology [place] [address] Juan Fitzpatrick MD [facility] [place] [address] Small cell carcinoma of lung (Primary Dx) [...] PM EST Office Visit Hematology/Oncology at [address] [address] Mars Conley MD [facility] DR HEMATOLOGY [place] [address] Cailin Marrero APRN [address] [place] [address] [place] [address] 09/07/2024 9:00 AM EST Office [place] [address] Raven Alvarado MD [facility] [place] [address] 10/04/2024 1:15 PM EST Office [place] [address] Feliciano Shay, [facility] [place] [address] Pending Results Name Type Priority Associated Diagnoses Date /Time Pulmonary Function Testing PFT Routine Small cell carcinoma of lung 07/24/2021 12:42 PM EST documented as of this encounter Results * CT Chest w Contrast (07/24/2021 3:03 PM EST) Anatomical Region Laterality Modality Chest Computed Tomogra phy Impressions 07/24/2021 4:37 PM EST Small residual subcarinal soft tissue mass versus lymph node. No new findings. Thank you for letting us participate in the care of this patient. ??If you are a health care provider and have any questions regarding this report, please contact the number below. ??For patients who have questions please contact the health customer care representative that requested your imaging first. ? Electronically signed by: Awilda Keating MD, [facility] ([phone]), at 07/24/2021 4:37 PM Narrative 07/24/2021 4:37 PM EST EXAMINATION: CT CHEST W CONTRAST CLINICAL HISTORY: Small cell lung cancer, staging. TECHNIQUE: 3.75 mm thick axial contiguous sections were obtained through the chest via helical acquisition after the intravenous administration of 60 cc of Omnipaque-350. Thin-section reconstructions as well as coronal and sagittal reformatted images were generated. COMPARISON: 05/28/2021 CT. 06/18/2021 PET/CT. FINDINGS: Pulmonary parenchyma: Mild centrilobular emphysematous changes. Unchanged oblong small opacity in the superior segment of the left lower lobe on series 5 image 138 compared to series 5 image 126 of the 05/28/2021 study. No new or enlarging pulmonary nodules or other new parenchymal findings. Airways: Mucous strands in the mainstem bronchi. Pleura: No pleural effusion. Lymph nodes:No mediastinal or hilar lymphadenopathy. Heart, pericardium, and great vessels: Mild coronary atherosclerotic calcification. Other mediastinal structures: Small residual subcarinal soft tissue mass/ lymph node, 7 x 13 mm on series 3 image 34 and 22 x 6 mm on series 3 image 36. Fluid density below this level, see series 3 image 39 consistent with pericardial recess fluid above the left atrium, unchanged. Lower neck: No new findings. Upper abdomen: No new findings. Body wall soft tissues: No new findings. Skeletal structures: No new findings. Procedure Note Awilda Keating MD - 07/24/2021 EXAMINATION: CT CHEST W CONTRAST CLINICAL HISTORY: Small cell lung cancer, staging. TECHNIQUE: 3.75 mm thick axial contiguous sections were obtained throughthe chest via helical acquisition after the intravenous administration of 60cc of Omnipaque-350. Thin-section reconstructions as well as coronal andsagittal reformatted images were generated. COMPARISON: 05/28/2021 CT. 06/18/2021 PET/CT. FINDINGS: Pulmonary parenchyma: Mild centrilobular emphysematous changes. Unchangedoblong small opacity in the superior segment of the left lower lobe on series 5image 138 compared to series 5 image 126 of the 05/28/2021 study. No new orenlarging pulmonary nodules or other new parenchymal findings. Airways: Mucous strands in the mainstem bronchi. Pleura: No pleural effusion. Lymph nodes:No mediastinal or hilar lymphadenopathy. Heart, pericardium, and great vessels: Mild coronary atherosclerotic calcification. Other mediastinal structures: Small residual subcarinal soft tissue mass/lymph node, 7 x 13 mm on series 3 image 34 and 22 x 6 mm on series 3 image 36.Fluid density below this level, see series 3 image 39 consistent withpericardial recess fluid above the left atrium, unchanged. Lower neck: No new findings. Upper abdomen: No new findings. Body wall soft tissues: No new findings. Skeletal structures: No new findings. IMPRESSION Small residual subcarinal soft tissue mass versus lymph node. No newfindings. Thank you for letting us participate in the care of this patient. If youare a health care provider and have any questions regarding this report,please contact the number below. For patients who have questions please contactthe health customer care representative that requested your imaging first. Electronically signed by: Awilda Keating MD, [facility]([phone]), at 07/24/2021 4:37 PM Juan Fitzpatrick MD [facility] CT ORDERABLE S * Hepatitis C Antibody (07/24/2021 12:13 PM EST) Hepatitis C Antibody Negative Negative [facility] Blood 07/24/2021 12:1 3 PM EST 07/24/2021 12:19 PM EST Narrative Resulting Agency Comment Spec In Lab Juan Fitzpatrick MD CHEMISTRY ORDERA BLES Performing Organization Address City/[facility]/[place] [address] * Hepatitis B Surface Antigen (07/24/2021 12:13 PM EST) Hepatitis B Surface Antigen Negative Negative [facility] Blood 07/24/2021 12:1 3 PM EST 07/24/2021 12:19 PM EST Narrative Resulting Agency Comment Spec In Lab Juan Fitzpatrick MD CHEMISTRY ORDERA BLES Performing Organization Address City/[facility]/[place] [address] documented in this encounter Visit Diagnoses Diagnosis Small cell carcinoma of lung- Primary Malignant neoplasm of bronchus and lung, unspecified site Small cell carcinoma of lung Malignant neoplasm of bronchus and lung, unspecified site documented in this encounter Care Teams Security Sme Relationship Specialty Start Date End Date Marco Antonio-Nini Landrum MD [address] [address] PCP - General 06/26/10 documented as of this encounter
--- OUTSIDE RECORDS SUMMARY | 2024-08-27 00:49 | XMS_ITS | Encounter Summary ---
Author Organization [facility] [place] [address] Care Team Providers Care Business Education Teacher Name Role Phone Nini Machado MD Primary Care Provider Encounter Details Date Type Department Care Team (Late st Contact Info) Description 06/27/2021 9:20 AM EST Anesthesia Event [place] [address] Cl Hampton MD Anesthesia Record Procedure Summary Procedure Name Responsible Anesthesiologist Anesthesia Start Time Anesthesia Stop Time COLONOSCOPY, POLYPECTOMY, REMOVAL LESION BY SNARE (WRVU 4.57) (Trunk) Cl Hampton MD 06/27/21 0920 06/27/21 1030 Events Date Time Event Comment 06/27/2021 0823 0920 AN Verify 0920 Start 0920 An Start Data 0926 An Induction 0926 Anesthesia Ready 0946 Procedure Start 1028 Procedure Stop 1030 an stop data 1030 Recovery or ICU Handoff Carrol ent care was transferred to the destination unit staff after review of the patient's medical history, current anesthetic/surgical status and plan, according to the Provider Handoff Checklist. 1030 Stop Meds Name Total Propofol 50 mg Propofol INF 690.3 mg ePHEDrine 20 mg Lactated Ringers 1,000 mL * Agents Name O2 Air N2O O2 Auxiliary Flowmeter 1 * Blood No blood administrations on file. Lines, Drains, and Airways Type Details Placement Removal (RETIRED) Peripheral IV Line - Single Lumen 06/27/21; 0839; median vein (underside of arm), right; [id number] catheter system; 22 gauge; Yashira Ocampo; tolerated well; LDA not present upon assessment; 07/12/21; 1049 06/27/21 0839 by Jaclyn Melvin RN 07/12/21 104 by Lorelei Means RN documented in this encounter Social History [...] OR Notes * Anesthesia Postprocedure Evaluation - Cl Hampton MD - 06/27/2021 11:47 AM EST Department of Anesthesiology Post-procedure Note Patient: Stefanie Pina Procedure Summary Date: 06/27/21 Room / Location: [facility] 3 / [facility] Anesthesia Start: 919 Anesthesia Stop: 1029 Procedures: COLONOSCOPY, POLYPECTOMY, REMOVAL LESION BY SNARE (WRVU 4.67) (N/A Trunk) COLONOSCOPY WITH DIRECTED SUBMUCOSAL INJ (WRVU 3.66) (N/A Trunk) Diagnosis: (new diagnosis of smallcell lung cancer, FDG avid colon lesion - ? met vs primary) Surgeons: Marichuy iJmenez MD Responsible Provider: Cl Hampton MD Anesthesia Type: MAC ASA Status: 3 All Anesthesia Providers: Anesthesiologist: Cl Hampton MD PILATES INSTRUCTOR: Reji Rahman CRNA Vitals Value Taken Time BP 122/58 06/27/21 1120 Temp Pulse 67 06/27/21 1036 Resp 16 06/27/21 1100 SpO2 97 % 06/27/21 1121 Pain Level 0 06/27/21 1100 Vitals shown include unvalidated device data. Patient Location: PACU/[facility] Level of Consciousness: Awake and Alert Pain Management: Satisfactory Analgesia PONV: None Cardiovascular Status: Hemodynamically Stable Respiratory Status: Stable Respiratory Status Postoperative Fluid Status: Intravascular EUvolemia Possible Anesthetic Complications: NONE apparent at time of evaluation Final Primary Anesthesia Type: MAC (The anesthetic type performed was the same as planned.) Comments: * Anesthesia Preprocedure Evaluation - Cl Hampton MD - 06/26/2021 5:31 PM EST Images from the original note were not included. Pre-Anesthesia Evaluation for: Stefanie Pina a 65 y.o. female. Procedure(s): COLONOSCOPY, DIAGNOSTIC Patient Active Problem List Diagnosis ??? Small cell carcinoma of lung Detected during screening with an isolated subcarinal node. No past medical history on file. Past Surgical History: Procedure Laterality Date ??? PRO [facility] EBUS GUIDED SAMPL 1/2 NODE STATION/STRUX N/A 06/14/2021 BRONCH, W ENDOBRONCHIAL ULTRASOUND (EBUS) GUIDED SAMPLING, 1/2 NODES (WRVU 4.71) performed by Sebastian Hadley MD at [facility] END[facility]COPY ??? PRO BRONCHOSCOPY, DIAGNOSTIC W LAVAGE N/A 06/14/2021 BRONCHOSCOPY, RIGID OR FLEXIBLE, WITH BRONCHIAL ALVEOLAR LAVAGE (WRVU 2.88) performed by Sebastian Hadley MD at [facility] Social History Tobacco Use ??? Smoking status: Former Smoker Packs/day: 1.00 Years: 42.00 Pack years: 42.00 Types: Cigarettes Quit date: 03/11/2021 Years since quittin.2 ??? Smokeless tobacco: Never Used ??? Tobacco comment: vaping several x/day Substance Use Topics ??? Alcohol use: Never Social History Substance and Sexual Activity Drug Use Yes ??? Types: Marijuana Comment: occasional use 2-3x/year Allergies Allergen Reactions ??? Aspirin CIS - Anaphylaxis ??? Nitrofurantoin Monohyd/M-Cryst Other reaction(s): hands tingling, pins and needles, face swollen. ??? Nsaids (Non-Steroidal Anti-Inflammatory Drug) Other reaction(s): Shock / Unconsciousness; ??? Penicillins Other reaction(s): Dermatological problems, e.g., rash, hives; ??? Red Blood Cells Other (See Comments) Antibodies-Difficult to Crossmatch DO NOT REMOVE Please contact the Blood Bank at [phone] for questions. ??? Sulfamethoxazole-Trimethoprim Other reaction(s): Respiratory problems, e.g., wheezing;Dermatological problems, e.g., rash, hives; ??? Methadone Other reaction(s): vomiting ??? Mold Extracts ??? Mushroom Flavor Medications: MAR and/or home medications have been reviewed. Physical Exam: Preprocedure Vitals Current as of 06/26/21 1731 No BP, pulse, respiration, SpO2, or temperature recorded. Height: Weight: BMI: IBW: Airway Assessment: Mallampati: I TM distance: >3 FB Neck ROM: full Cardiovascular Assessment: system normal Pulmonary Assessment: pulmonary exam normal Dental Assessment: Misc Assessment: IV access: Peripheral line Last Filed Perioperative Cognitive Screening None Anesthesia Plan: ASA 3 MAC, with a(n) intravenous induction Medical record reviewed. 65 year old female to undergo colonoscopy to look for metastatic disease in the setting of lung ca. No contraindicaation to proceeding Plan: MAC deep sedation Region - Other Informed Consent: Anesthetic plan and risks discussed with patient. Plan discussed with PILATES INSTRUCTOR and attending. Anesthesia Screening documented in this encounter Plan of Treatment Upcoming Encounters Date Type Department Care Team (Late st Contact Info) Description 08/30/2024 2:00 PM EST Office Visit Hematology/Oncology at [address] [address] Mars Conley MD [facility] DR [place] [address] Cailin Marrero APRN [address] [place] [address] DR HEMATOLOGY [place] [address] 09/07/2024 9:00 AM EST Office [place] [phone] Raven Alvarado MD [facility] [place] [place] [address] 10/04/2024 1:15 PM EST Office [place] [address] Feliciano Shay, [facility] [place] [address] documented as of this encounter Visit Diagnoses Not on filedocumented in this encounter Administered Medications Inactive Administered Medications - up to 3 most recent administrations Medication Order MAR Action Action Date Dose Rate Site ePHEDrine sulfate (5 mg/mL) multi-dose injection Intravenous, PRN, Starting on Fri06/27/21 at 0935, Until Fri06/27/21 at 1030, Anesthesia Intra-op, Routine Given 06/27/2021 9:35 AM EST 10 mg Given 06/27/2021 9:30 AM EST 10 mg lactated ringers infusion Intravenous, CONTINUOUS PRN, Starting on Fri06/27/21 at 0920, Until Fri06/27/21 at 1030, Anesthesia Intra-op New Bag 06/27/2021 9:47 AM EST New Bag 06/27/2021 9:20 AM EST propofoL (Diprivan) (10 mg/mL) infusion Intravenous, CONTINUOUS PRN, Starting on Fri06/27/21 at 0926, Until Fri06/27/21 at 1030, Anesthesia Intra-op, Routine New Bag 06/27/2021 9:26 AM EST 200 mcg/kg/min 70.2 mL/hr propofoL (Diprivan) 10 mg/mL bolus injection (Anesthesia) Intravenous, PRN, Starting on Fri06/27/21 at 0926, Until Fri06/27/21 at 1030, Anesthesia Intra-op Given 06/27/2021 9:26 AM EST 50 mg documented in this encounter Care Teams Business Education Teacher Relationship Specialty Start Date End Date Marco Antonio-Nini Landrum MD [address] [address] PCP - General 06/26/10 documented as of this encounter
--- OUTSIDE RECORDS SUMMARY | 2024-08-27 00:49 | XMS_ITS | Encounter Summary ---
Author Organization [facility] [place] [address] Care Team Providers Care Activity Coordinator Name Role Phone Nini Machado MD Primary Care Provider [phone] Reason for Visit * Treatment/Therapy Plan Authorization (Routine) - Closed Specialty Diagnoses / Procedures Referred By Aldo sotelo Referred To Contact Diagnoses Small cell carcinoma of lung Juan Fitzpatrick MD [facility] [place] [address] Referral ID Status Reason Start Date Expiration Date Visits Re quested Visits Authorized [id number] Closed 06/21/2021 06/21/2022 99 99 Encounter Details Date Type Department Care Team (Latest Contact Info) Description 07/05/2021 8:16 AM EST - 07/05/2021 11:59 PM [facility] Hospital Encounter Hematology [place] [address] Small cell carcinoma of lung Discharge Disposition: Home Social History Tobacco Use [...] Sign Reading Time Taken Comments Blood Pressure 141/62 07/05/2021 8:25 AM EST Pulse 57 07/05/2021 8:25 AM EST Temperature 36.4 ??C (97.5 ??F) 07/05/2021 8:25 AM ES T Respiratory Rate 17 07/05/2021 8:25 AM EST Oxygen Saturation 98% 07/05/2021 8:25 AM EST Inhaled Oxygen Concentration - - Weight - - Height - - Body Mass Index - - documented in this encounter Medications at Time of Discharge Medication Sig Dispensed Refills Start Date End Date Ventolin HFA 90 mcg/actuation HFA Aerosol Inhaler [...] Take 10 mg by mouth nightly. 01/29/2021 prochlorperazine (Compazine) 10 mg Tablet Take 1 tablet by mouth every 6 hours as needed for Nausea. 30 tablet 3 07/04/2021 09/16/2022 hyoscyamine SL (Levsin SL) 0.125 mg Tablet, Sublingual DISSOLVE 1 TABLET UNDER THE TONGUE TWICE DAILY NEEDED 05/24/2021 08/06/2021 dicyclomine (Bentyl) 10 mg Capsule 3 times daily. 08/06/2021 morphine CR (Ms Contin) 15 mg Tablet Sustained Release 2 times daily. 06/02/2021 08/06/19 22 sertraline (ZOLOFT) 100 mg Tablet daily. 11/06/2018 08/06/2021 cyclobenzaprine (Flexeril) 10 mg Tablet take 1 tablet by mouth every 12 hours if needed for 5 days 12/31/2020 08/06/2021 loratadine (Claritin) 10 mg Tablet as needed. 07/12/2015 08/06/2021 calcium carbonate (CALCIUM 500 ORAL) Take by mouth. 022 baclofen (LIORESAL) 10 mg tablet 11/17/2009 08/16/2021 documented as of this encounter Progress Notes * Lauren Sanderson RN - 07/05/2021 8:21 AM EST Patient Name: Stefanie Pina Patient Age: 65 y.o. Birthdate: 1955 Admit date: 07/05/2021 Attending Physician: Emily att. providers found TIME TREATMENT STARTED: 08:30 TIME TREATMENT ENDED: 11:20 Stefanie Pina, 65 y.o. female with diagnosis of lung cancer is here for chemotherapy infusion ofetoposide. REGIMEN: carboplatin/etoposide CYCLE: 1 DAY: 2 S: Pt. offers no complaints at this time. O: Chemotherapy orders independently verified for correct drug name, route and dosage per patient'sheight, weight and BSA by Lauren Sanderson, RN, Cathie Salguero RN and onsite pharmacist REACTIONS (DESCRIPTION, TIME, INTERVENTION AND EFFECTIVENESS) None A: Pt. Tolerated treatment well. Stefanie Pina confirms that all questions and issues have been addressed. P: Return to clinic tomorrow for day 3 of Etoposide. documented in this encounter Plan of Treatment Upcoming Encounters Date Type Department Care Team (Late st Contact Info) Description 08/30/2024 2:00 PM EST Office Visit Hematology/Oncology at [address] [address] Mars Conley MD [facility] DR [place] [address] Cailin Marrero APRN [address] [place] [address] DR [place] [address] 09/07/2024 9:00 AM EST Office [place] [phone] Raven Alvarado MD [facility] [place] [address] 10/04/2024 1:15 PM EST Office [place] [phone] Feliciano Shay, [facility] [place] [address] documented as of this encounter Visit Diagnoses Diagnosis Small cell carcinoma of lung Malignant neoplasm of bronchus and lung, unspecified site documented in this encounter Administered Medications Inactive Administered Medications - up to 3 most recent administrations Medication Order MAR Action Action Date Dose Rate Site dexamethasone (PF) (Decadron) (10 mg/mL) injection 10 mg 10 mg, Intravenous, ONCE, 1 dose, On [place] 07/05/21 at 0830, Administer prior to chemotherapy Given 07/05/2021 8:47 AM EST 10 mg diphenhydrAMINE (Benadryl) (50 mg/mL) injection 25 mg 25 mg, Intravenous, ONCE, 1 dose, On [place] 07/05/21 at 0900, Routine Given 07/05/2021 8:47 AM EST 25 mg etoposide (Vepesid) 165 mg in sodium chloride 0.9% Non-PVC 508.25 mL infusion 165 mg (100 mg/m2/dose ? 1.65 m2 Treatment Plan BSA from Recorded weight), Intravenous, ONCE, 1 dose, On [place]a 07/05/21 at 0930, Administer over 90 Minutes, Warning Vesicant/Irritant Medication New Bag 07/05/2021 9:23 AM EST 165 mg 338.8 mL/hr famotidine (Pepcid) (10 mg/mL) injection 20 mg 20 mg, Intravenous, ONCE, 1 dose, On [place]a 07/05/21 at 0900 Given 07/05/2021 8:47 AM EST 20 mg documented in this encounter Care Teams Activity Coordinator Relationship Specialty Start Date End Date Marco Antonio-Nini Landrum MD [address] [address] PCP - General 06/26/10 documented as of this encounter
--- OUTSIDE RECORDS SUMMARY | 2024-08-27 00:49 | XMS_ITS | Encounter Summary ---
Author Organization [facility] Address [facility] [place] [address] Care Team Providers Care Tumbler Plater Name Role Phone Nini Machado MD Primary Care Provider [phone] Reason for Referral * Consultation (Routine) - Closed Specialty Diagnoses / Procedures Referred By Contac t Referred To Contact Radiation Oncology Diagnoses Small cell carcinoma of lung Procedures Simulation for Radiation Therapy Planning Senthil Muller MD [facility] [place] [address] [facility] [place] [address] Referral ID Status Reason Start Date Expiration Date V isits Requested Visits Authorized [id number] Closed Consult, Test & Treat 07/02/2021 07/02/2022 1 1 Reason for Visit * Reason Comments Establish Care * Consultation (Urgent) - Closed Specialty Diagnoses / Procedures Referred By Contac t Referred To Contact Radiation Oncology Diagnoses Small cell lung cancer Yemi Saleh MD [facility] [place] [address] Senthil Muller MD [facility] [place] [address] Referral ID Status Reason Start Date Expiration Date V isits Requested Visits Authorized [id number] Closed Consult, Test & Treat 06/19/2021 06/19/2022 1 1 Encounter Details Date Type Department Care Team (Ar st Contact Info) Description 07/02/2021 10:00 AM EST Office Visit Radiation Oncology at [facility] [place] [address] Senthil Muller MD [facility] [place] [address] Small cell carcinoma of lung Social History [...] Sign Reading Time Taken Comments Blood Pressure 138/54 07/02/2021 9:32 AM EST Pulse 54 07/02/2021 9:32 AM EST Temperature 37.1 ??C (98.7 ??F) 07/02/2021 9:32 AM ES T Respiratory Rate 18 07/02/2021 9:32 AM EST Oxygen Saturation 99% 07/02/2021 9:32 AM EST Inhaled Oxygen Concentration - - Weight 58.1 kg (128 lb) 07/02/2021 9:32 AM EST w / shoes Height - - Body Mass Index 20.6 06/20/2021 2:39 PM EST documented in this encounter Progress Notes * Senthil Muller MD - 07/02/2021 10:00 AM EST Images from the original note were not included. Radiation Oncology Consultation Report Patient Identity: Patient name: Stefanie Pina Date of : 1955 Chief complaint: Small cell lung cancer Referring: Yemi Saleh MD [facility] [place] [address] History: Stefanie Pina is a 65 y.o. female who recently quit smoking who is diagnosed with small cell lung cancer. She had a lung cancer screening CT scan that showed enlarged subcarinal LN. PET/CT showed abnormal FDG uptake in the enlarged subcarinal LN and also in right hilar LN. Bronchoscopy/EBUS (detailed below) revealed small cell lung cancer in the subcarinal LN and no other sites of cancer including in the FDG avid right hilar LN. Brain MRI is negative. She is in reasonable health. She is independent/active around the house and outside when the weather is nice. She is [id number] quit smoking; occasionally she uses an e-cigarette but plans to stop this all together before starting her chemotherapy later this week. She does not use supplemental oxygen. She has no recent weight loss, in fact she has gained ~8 lbs since quitting smoking. Appetite is good. She lives in [place], [place] (about [place] hour from [place], [place]). Lung Cancer Evaluation: CT Chest Date: 05/28/2021 Findings: Potentially significant incidental findings: Enlarged subcarinal lymph nodeversus new subcarinal mass, previously 16 x 8 mm on series 3 image 50 of prior, now 32 x 19 mm on series 3 image 52. Other mediastinal lymph nodes unchanged. PET/CT Date: 06/18/2021 Findings: 1. A 2.4 cm highly FDG avid [...] apex as detailed above, unchanged dating back toCT of 04/14/2020. Continued attention on follow-up. 4. Unexpected finding. FDG avid lesion in the wall of the cecum where there is a suggestion of softtissue thickening on noncontrast CT. This is highly suspicious for a premalignant versus malignant colonic neoplasm. Direct visualization recommended. Brain MRI Date: 06/11/2021 Findings: No brain metastases. Pulmonary Function Testing Date: FEV1: % predicted DLCO: % predicted Subjective: Pathology Date: 06/14/2021 Findings: DIAGNOSIS Positive for Malignancy Electronically signed by: ?Ladan PALENCIA, Marek Mullen Verified: ??06/15/2021 19:27 ??Pathologist Performed at: ??-[facility] Dept. 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 Mediastinal LN Evaluation / Sampling Station # Anatomical Level Clin Status [] 2R RT upper paratracheal --> not done [x] 4R RT lower paratracheal --> negative [] 2L LT upper paratracheal --> not done [] 4L LT lower paratracheal --> not done [] 5 AP window --> not done [] 6 Pre-vascular --> not done [x] 7 Subcarinal --> positive [] 10R RT hilar --> not done [x] 11R RT hilar --> negative [] 10L LT hilar --> not done [x] 11L LT hilar --> negative [] I have personally reviewed the imaging studies referenced above. Review of Systems: I reviewed and agree with the nursing review of systems accompanying this encounter. The remainder of the comprehensive review of systems was negative with the exception of the pertinent positives and negatives noted above. Exam: Patient Vitals for the past 24 hrs: Temp Pulse Resp BP SpO2 07/02/21 0932 37.1 ??C (98.7 ??F) 54 18 138/54 99 % Comfortable, NAD NCAT Breathing comfortably on room air, no respiratory distress No neurological symptoms. KPS ECOG Definition [x] 90-100 0 Fully [...] selfcare; totally confined to bed or chair Medications and Allergies: Current Outpatient Medications: ??? hyoscyamine SL (Levsin SL) 0.125 mg Tablet, Sublingual, DISSOLVE 1 TABLET UNDER THE TONGUE TWICE DAILY NEEDED, Disp: , Rfl: ??? dicyclomine (Bentyl) 10 mg Capsule, 3 times daily., Disp: , Rfl: ??? morphine CR (Ms Contin) 15 mg Tablet Sustained Release, 2 times daily., Disp: , Rfl: ??? pravastatin (Pravachol) 20 mg Tablet, take 1 tablet by mouth once daily for cholesterol, Disp: , Rfl: ??? montelukast (Singulair) 10 mg Tablet, daily., Disp: , Rfl: ??? Ventolin HFA 90 mcg/actuation HFA Aerosol Inhaler, inhale 2 puffs USING INHALER EVERY 4 HOURS NEEDED, Disp: , Rfl: ??? nicotine polacrilex (Commit) 4 mg Lozenge, SUCK ON 1 LOZENGE BY MOUTH UP TO EVERY 2 HOURS WHILEAWAKE NEEDED FOR SMOKING CESSATION, Disp: , Rfl: ??? sertraline (ZOLOFT) 100 mg Tablet, daily., Disp: , Rfl: ??? salmeteroL (Serevent Diskus) 50 mcg/dose Disk with Device, SEREVENT DISKUS 50 MCG/DOSE AEPB, Disp: , Rfl: ??? cyclobenzaprine (Flexeril) 10 mg Tablet, take 1 tablet by mouth every 12 hours if needed for 5 days, Disp: , Rfl: ??? estradioL (Estrace) 0.01 % (0.1 mg/gram) Cream, ESTRACE 0.1 MG/GM CREA, Disp: , Rfl: ??? EPINEPHrine (EpiPen) 0.3 mg/0.3 mL Auto-Injector, EPIPEN 2-GIOVANNA 0.3 MG/0.3ML SOAJ, Disp: , Rfl: ??? triamcinolone (Kenalog) 0.1 % Ointment, TRIAMCINOLONE ACETONIDE 0.1 % OINT, Disp: , Rfl: ??? loratadine (Claritin) 10 mg Tablet, as needed., Disp: , Rfl: ??? predniSONE (Deltasone) 20 mg Tablet, TAKE 3 TABLETS BY MOUTH DAILY FOR 3 DAY, Disp: , Rfl: ??? fluticasone propionate (Flonase) 50 mcg/actuation [place], Suspension, FLUTICASONE PROPIONATE 50 MCG/ACT SUSP, Disp: , Rfl: ??? cholecalciferol, Vitamin D3, 25 mcg (1,000 unit) Capsule, daily., Disp: , Rfl: ??? rOPINIRole (REQUIP) 0.5 mg Tablet, take 1 tablet by mouth daily, Disp: , Rfl: ??? albuteroL (Proventil) 2.5 mg /3 mL (0.083 %) Solution for Nebulization, ALBUTEROL SULFATE (2.5 MG/3ML) 0.083% NEBU, Disp: , Rfl: ??? calcium carbonate (CALCIUM 500 ORAL), Take by mouth., Disp: , Rfl: ??? IPRATROPIUM/ALBUTEROL SULFATE (IPRATROPIUM-ALBUTEROL INHL), , Disp: , Rfl: ??? fluticasone-salmeterol (ADVAIR DISKUS) 500-50 mcg/dose diskus inhaler, , Disp: , Rfl: ??? Mometasone (NASONEX) 50 mcg/Actuation [place], , Disp: , Rfl: ??? zafirlukast (ACCOLATE) 20 mg tablet, , Disp: , Rfl: ??? baclofen (LIORESAL) 10 mg tablet, , Disp: , Rfl: ??? lovastatin (MEVACOR) 20 mg tablet, , Disp: , Rfl: ??? esomeprazole (NEXIUM) 40 mg capsule, , Disp: , Rfl: ??? clonAZEpam (KLONOPIN) 0.5 mg tablet, , Disp: , Rfl: ??? chlorproMAZINE (THORAZINE) 100 mg tablet, , Disp: , Rfl: ??? NORTRIPTYLINE HCL (NORTRIPTYLINE ORAL), , Disp: , Rfl: Allergies Allergen Reactions ??? Aspirin CIS - Anaphylaxis ??? Nitrofurantoin Monohyd/M-Cryst Other reaction(s): hands tingling, pins and needles, face swollen. ??? Nsaids (Non-Steroidal Anti-Inflammatory Drug) Other reaction(s): Shock / Unconsciousness; ??? Penicillins Other reaction(s): Dermatological problems, e.g., rash, hives; ??? Red Blood Cells Other (See Comments) Antibodies-Difficult to Crossmatch DO NOT REMOVE Please contact the Blood Bank at [phone] for questions. ??? Sulfamethoxazole-Trimethoprim Other reaction(s): Respiratory problems, e.g., wheezing;Dermatological problems, e.g., rash, hives; ??? Methadone Other reaction(s): vomiting ??? Mold Extracts ??? Mushroom Flavor Summary/Recommendations: Cancer Staging: Cancer Staging Small cell carcinoma of lung Staging form: Lung, AJCC 8th Edition - Clinical stage from 06/20/2021: cT0, cN2, cM0 - Signed by Juan Fitzpatrick MD on 06/20/2021 Impression: Stefanie Pina has a new diagnosis of limited stage small cell lung cancer with her cancer limited to a single subcarinal LN station; EBUS/TBNA indicates that all other LN stations are not involveddespite low-level FDG uptake in the right hilum. Colonic uptake seems to be unrelated, but final pathology from the colonoscopy is still pending. Considering her dx of limited stage small cell lung cancer standard treatment is with concurrent chemo/RT. She has signed informed consent for clinical trial NRG LU005 so she will be registered/randomized after she received cycle 1 of chemotherapy that is scheduled to begin on 07/04/2021 (this Friday). We did discuss the particulars of the radiation therapy, in particular treatment schedule which canbe once-daily for 33 treatments vs. Twice-daily for 30 treatments; she is leaning toward the twice-daily schedule but needs to discuss with her family/friends who will be helping her with transportation. Plan: 1. Colonoscopy done 06/27/2021 appears to be unrelated findings (polyps) final pathology is still pending. 2. Signed informed consent for NRG LU005. 3. Schedule simulation for after cycle 1 provided that the colonoscopy final pathology is normal, and no change in stage is determined. Thank you for allowing me to participate in the care of Stefanie Pina. Senthil Muller MD [facility] Radiation oncology [phone] Orders Placed This Encounter Procedures ??? Simulation for Radiation Therapy Planning The following information is automatically imported from [facility]. It has been reviewed, and pertinent information is noted above in HPI: PAST HISTORY Patient Active Problem List Diagnosis Date Noted ??? Small cell carcinoma of lung 06/20/2021 Social History Socioeconomic History ??? Marital status: Spouse name: Not on file ??? Number of children: Not on file ??? Years of education: Not on file ??? Highest education level: Not on file Occupational History ??? Occupation: on Disability Tobacco Use ??? Smoking status: Former Smoker Packs/day: 1.00 Years: 42.00 Pack years: 42.00 Types: Cigarettes Quit date: 03/11/2021 Years since quittin.3 ??? Smokeless tobacco: Never Used ??? Tobacco comment: vaping several x/day Vaping Use ??? Vaping Use: Every day Substance and Sexual Activity ??? Alcohol use: Never ??? Drug use: Yes Types: Narcotics, Pain Pills Comment: occasional use 2-3x/year ??? Sexual activity: Not on file Comment: deferred Other Topics Concern ??? Not on file Social History Narrative ??? Not on file Social Determinants of Health Financial Resource Strain: Low Risk ??? Difficulty of Paying Living Expenses: Not very hard Food Insecurity: No Food Insecurity ??? Worried About Running Out of Food in the Last Year: Never true ??? Ran Out of Food in the Last Year: Never true Transportation Needs: Unmet Transportation Needs ??? Lack of Transportation (Medical): Yes ??? Lack of Transportation (Non-Medical): No Physical Activity: Not on file Housing Stability: Low Risk ??? Unable to Pay for Housing in the Last Year: No ??? Number of Places Lived in the Last Year: 1 ??? Unstable Housing in the Last Year: No Family History Problem Relation Age of Onset ??? Colorectal Cancer Nephew * Mae Bojorquez RN - 07/02/2021 10:00 AM EST RADIATION ONCOLOGY NURSING INITIAL NURSING ASSESSMENT IDENTIFICATION: Stefanie Pina is a 65 y.o. year-old female with small cell lung cancer. PRESENTING SYMPTOMS/CHIEF COMPLAINT: REVIEW OF SYSTEMS: Review of Systems Constitutional: Negative. HENT: Positive for hearing loss (bilateral hearing aid) and lump/mass (lung nodules). Respiratory: Positive for shortness of breath (if doing a lot) and wheezing (h/o asthma). Cardiovascular: Positive for chest pain (intermittent discomfort in the chest). Musculoskeletal: Negative. Psychiatric/Behavioral: Positive for depression (sometimes). The patient is nervous/anxious. IN THE PAST 12 MONTHS HAVE YOU: Fallen more than one time? No Injured yourself as result of the fall? No Experienced difficulty with walking/problems with balance? No Do you use any assistive devices? No Any history of collagen vascular diseases:No Any Implanted Devices/Hardware: No If yes please put alert in ARIA patient summary Prior Radiotherapy: No Prior Chemotherapy: No Prior Hormone Therapy: No LEARNING ASSESSMENT REVIEWED: Yes ADVANCED DIRECTIVE: no, info given PAIN ASSESSMENT: [0] out of 10 *eD-H Adult PCS Flow Sheet if 4 or above SOCIAL ASSESSMENT: See EDH social assessment information entered. Support Systems: yes Barriers to treatment: yes, transportation for xrt Referrals/Interventions: SW RADIATION SPECIFIC TEACHING: Deferred until treatment plan established. PLAN: Consult with Dr. Muller today to discuss radiation treatment options. documented in this encounter Plan of Treatment Upcoming Encounters Date Type Department Care Team (Late st Contact Info) Description 08/30/2024 2:00 PM EST Office Visit Hematology/Oncology at [address] [phone] Mars Conley MD [facility] DR HEMATOLOGY [place] [address] Cailin Marrero APRN [address] [place] [address] DR HEMATOLOGY [place] [address] 09/07/2024 9:00 AM EST Office Visit General Surgery at [place] [phone] Raven Alvarado MD [facility] [place] [address] 10/04/2024 1:15 PM EST Office Visit Neurology at [place] [phone] Feliciano Shay DO [facility] [place] [address] Scheduled Orders Name Type Priority Associated Diagnoses Orde r Schedule Simulation for Radiation Therapy Planning Procedures Routine Small cell carcinoma of lung Ordered: 07/02/2021 documented as of this encounter Visit Diagnoses Diagnosis Small cell carcinoma of lung Malignant neoplasm of bronchus and lung, unspecified site documented in this encounter Care Teams Tumbler Plater Relationship Specialty Start Date End Date Nini Machado MD [facility] [address] [place] [address] PCP - General 06/26/10 documented as of this encounter
--- OUTSIDE RECORDS SUMMARY | 2024-08-27 00:49 | XMS_ITS | Encounter Summary ---
Author Organization [facility] Address [facility] [place] [address] Care Team Providers Care Tool Dispatcher Name Role Phone Nini Machado MD Primary Care Provider [phone] Encounter Details Date Type Department Care Team (Latest Contact Info) Description 06/27/2021 7:56 AM EST - 06/27/2021 11:34 AM EST Hospital Encounter [place] [address] Marichuy Jimenez MD [facility] [place] [address] Discharge Disposition: Home Social History Tobacco Use [...] Sign Reading Time Taken Comments Blood Pressure 130/52 06/27/2021 11:00 AM EST Pulse 67 06/27/2021 10:36 AM EST Temperature 36.8 ??C (98.3 ??F) 06/27/2021 8:25 AM ES T Respiratory Rate 16 06/27/2021 11:00 AM EST Oxygen Saturation 100% 06/27/2021 11:00 AM EST Inhaled Oxygen Concentration - - Weight 58.5 kg (129 lb) 06/27/2021 8:25 AM EST Height - - Body Mass Index 20.76 06/20/2021 2:39 PM EST documented in this encounter Medications at Time [...] Take 10 mg by mouth nightly. 01/29/2021 hyoscyamine SL (Levsin SL) 0.125 mg Tablet, Sublingual DISSOLVE 1 TABLET UNDER THE TONGUE TWICE DAILY NEEDED 05/24/2021 08/06/2021 dicyclomine (Bentyl) 10 mg Capsule 3 times daily. 08/06/2021 morphine CR (Ms Contin) 15 mg Tablet Sustained Release 2 times daily. 06/02/2021 08/06/2021 sertraline (ZOLOFT) 100 mg Tablet daily. 11/06/2018 08/06/2021 cyclobenzaprine (Flexeril) 10 mg Tablet take 1 tablet by mouth every 12 hours if needed for 5 days 12/31/2020 08/06/2021 loratadine (Claritin) 10 mg Tablet as needed. 07/12/2015 08/06/2021 calcium carbonate (CALCIUM 500 ORAL) Take by mouth. 022 baclofen (LIORESAL) 10 mg tablet 11/17/2009 08/16/2021 documented as of this encounter H&P Notes * Marichuy Jimenez MD - 06/27/2021 9:04 AM EST Gastroenterology and Hepatology Pre-Procedure History and Physical Exam Procedure: Colonoscopy: Indication: Abnl PET Patient Active Problem List Diagnosis Code ??? Small cell carcinoma of lung C34.90 EXAM: HEENT: Airway examined, oropharynx clear Mallampati Score: II (soft palate, uvula, fauces visible) LUNGS: Clear to auscultation HEART: Regular rate and rhythm, normal S1, S2 ABDOMEN: Normal bowel sounds, soft, non tender, non distended, A/P Proceed with the planned endoscopic procedure. ASA 3 - Patient with moderate systemic disease with functional limitations Sedation Plan: anesthesia Risks and benefits of the procedure explained to the patient. Consent signed. documented in this encounter Plan of Treatment Upcoming Encounters Date Type Department Care Team (Late st Contact Info) Description 08/30/2024 2:00 PM EST Office Visit Hematology/Oncology at [address] [phone] Mars Conley MD [facility] DR [place] [address] Cailin Marrero APRN [address] [place] [address] DR HEMATOLOGY AND ONCOLOGY [place], [place] [address] 09/07/2024 9:00 AM EST Office [place] [phone] Raven Alvarado MD [facility] [place] [address] 10/04/2024 1:15 PM EST Office [place] [phone] Feliciano Shay, [facility] [place] [address] documented as of this encounter Procedures Procedure Name Priority Date/Time Associated Diagnosis Comments SPECIMEN TO PATHOLOGY Routine 06/27/2021 10:28 AM EST SPECIMEN TO PATHOLOGY Routine 06/27/2021 10:28 AM EST SURGICAL PATHOLOGY REPORT Routine 06/27/2021 10:06 AM EST Colonoscpy, Flex, W/Dir Submuc Inject ([id number]) 06/27/2021 9:19 AM EST new diagnosis of small cell lung cancer, FDG avid colon lesion - ? met vs primary Colonoscopy, Remv Enrike, Kevin ([id number]) 06/27/2021 9:19 AM EST new diagnosis of small cell lung cancer, FDG avid colon lesion - ? met vs primary COLONOSCOPY Routine 06/27/2021 9:13 AM EST documented in this encounter Results * Specimen to Pathology (06/27/2021 10:28 AM EST) AP Specimen 06/27/2021 10:2 8 AM EST 06/27/2021 10:28 AM EST Narrative [facility] - 06/27/2021 10:28 AM EST Specimen requisition ordered. ??Separate Pathology report to follow L Donnie Jimenez MD PATHOLOGY/CYTOLOGY O BRANDIN Performing Organization Address [facility] Co de Phone Number [facility] [place] [address] * Specimen to Pathology (06/27/2021 10:28 AM EST) AP Specimen 06/27/2021 10:2 8 AM EST 06/27/2021 10:28 AM EST Narrative [facility] - 06/27/2021 10:28 AM EST Specimen requisition ordered. ??Separate Pathology report to follow L Donnie Jimenez MD PATHOLOGY/CYTOLOGY O BRANDIN Performing Organization Address [facility] de Phone Number [place] [phone] * Surgical Pathology Report (06/27/2021 10:06 AM EST) Final Diagnosis [id number] ? Location: ; [facility]; A The signing pathologist has (i) examined the relevant preparation(s) for the specimen(s) and (ii) rendered or confirmed the diagnosis(es). . ?Surgical Pathology DIAGNOSIS A - Ascending colon polyp, excision: - Sessile serrated lesion with extensive ?high-grade dysplasia . B - Transverse colon polyps, excision: - ??Tubular adenoma. - ??Fragments of hyperplastic polyp(s). Electronically signed by: ?Betzaida PALENCIA PhD, Mickie Verified: ??07/06/2021 14:58 ??Pathologist Performed at: ??-[facility] [place], [place], [place] DISCUSSION The results were discussed with Dr. Donnie Jimenez via phone at 2:55pm on July 06, 2021. SPECIMEN(S) SUBMITTED A - Ascending colon polyp ??30mm, excision (Multiple) B - Transverse colon polyps x2 polys - 3mm, 5mm, excision (2) CLINICAL INFORMATION 65-year-old female with abnormal PET scan SPECIMEN PROCESSING A - Labeled/Fixative : Ascending colon polyp 30 mm, formalin. Quantity/Size: Multiple, ranging from 0.2-1.3 cm. Tissue Description: Soft, pink polypoid tissue fragments. Sections/Process ing: Entirely submitted in 6 cassettes labeled A1-A6. B - Labeled/Fixative : Transverse colon polyps ? 2 3 mm, 5 mm, formalin. Quantity/Size: Multiple, ranging from 0.3-0.5 cm. Tissue Description: [place]. Sections/Process ing: Submitted en toto ??in 2 cassettes labeled B1-B2. ??sns 07/06/2021 2:58 PM EST [facility] GI Biopsy 06/27/2021 10:0 6 AM EST 06/27/2021 10:06 AM EST GI Biopsy 06/27/2021 10:0 6 AM EST 06/27/2021 10:06 AM EST L Donnie Jimenez MD PATHOLOGY/CYTOLOGY O RDERAROBINSON [facility] [place] [address] * COLONOSCOPY (06/27/2021 9:13 AM EST) COLONOSCOPY [facility] Endoscopy Procedure Date: 06/27/2021 9:13 AM ? Patient Name: Stefanie Pina ? Date of : 1955 ? Age: 65 ? Order #: [id number] ? Instrument Name: [id number] ? Procedure: ? Colonoscopy Indications: ? Abnormal PET scan of the GI tract Providers: ? L. Donnie Jimenez MD, Zayda Osborn, ? Meir Navarrete MD: ?Nini Machado MD, Juan Lewis. ? MD Amari Medicines: ? Monitored Anesthesia Care Complications: ? No immediate complications. Procedure: ? Pre-Anesthesia Assessment: ? - Prior to the procedure, a History ? and Physical was performed, and ? patient medications and allergies ? were reviewed. The patient is ? competent. The risks and benefits of ? the procedure and the sedation ? options and risks were discussed with ? the patient. All questions were ? answered and informed consent was ? obtained. Patient identification and ? proposed procedure were verified by ? the physician in the pre-procedure ? area in the endoscopy suite. Mental ? Status Examination: alert and ? oriented. Airway Examination: normal ? oropharyngeal airway and neck ? mobility. Respiratory Examination: ? clear to auscultation. CV ? Examination: normal. ASA Grade ? Assessment: III - A patient with ? severe systemic disease. After ? reviewing the risks and benefits, the ? patient was deemed in satisfactory ? condition to undergo the procedure. ? The anesthesia plan was to use ? monitored anesthesia care (MAC). ? Immediately prior to administration ? of medications, the patient was ? re-assessed for adequacy to receive ? sedatives. The heart rate, ? respiratory rate, oxygen saturations, ? blood pressure, adequacy of pulmonary ? ventilation, and response to care ? were monitored throughout the ? procedure. The physical status of the ? patient was re-assessed after the ? procedure. ? The procedure, indications, benefits, ? risks and alternatives were explained ? to the patient. Specifically ? discussed were potential ? complications including, but not ? limited to, bleeding, perforation, ? infection, missing a cancer, and ? adverse medication reactions. The ? patient was placed in the left ? lateral decubitus position, and a ? digital rectal exam was performed. ? The Colonoscope was inserted in the ? anus and under direct visualization, ? advanced to the terminal ileum, with ? identification of the appendiceal ? orifice and IC valve. Careful ? inspection was made as the ? colonoscope was withdrawn. The ? colonoscopy was performed without ? difficulty. The patient tolerated the ? procedure well. The quality of the ? bowel preparation was evaluated using ? the BBPS ([place] Bowel Preparation ? Scale) with scores of: Right Colon = ? 2 (minor amount of residual staining, ? small fragments of stool and/or ? opaque liquid, but mucosa seen well), ? Transverse Colon = 2 (minor amount of ? residual staining, small fragments of ? stool and/or opaque liquid, but ? mucosa seen well) and Left Colon = 2 ? (minor amount of residual staining, ? small fragments of stool and/or ? opaque liquid, but mucosa seen well). ? The total BBPS score equals 6. The ? quality of the bowel preparation was ? good. ? Findings: ? Multiple medium-mouthed diverticula were found in the ? sigmoid colon. ? A single small angioectasia without bleeding was ? found in the cecum. ? Two sessile polyps were found in the transverse ? colon. The polyps were 3 to 5 mm in size. These ? polyps were removed with a cold snare. Resection and ? retrieval were complete. ? A 30 mm lateral spreading tumor, very likely benign, ? (mixed nodular type) was found in the proximal ? ascending colon. The polyp was flat and encompassed ? at least 1/3 of the lumen circumference. The polyp ? was removed piecemeal after injection with a ? 1:1,000,000 dilution of epinephrine in EverLift using ? a cold snare. Resection and retrieval were complete. ? The terminal ileum appeared normal. ? Moderate Sedation: ? Not applicable - See Anesthesia documentation Impression: ?- Moderate diverticulosis in the ? sigmoid colon. ? - A single non-bleeding colonic ? angioectasia. ? - Two 3 to 5 mm polyps in the ? transverse colon, removed with a cold ? snare. Resected and retrieved. ? - One 30 mm polyp in the proximal ? ascending colon, removed using ? injection-lift and a cold snare. ? Resected and retrieved. This was very ? likely the cause of the PET scan ? finding. ? - The examined portion of the ileum ? was normal. Recommendation: ?- Await pathology results. ? - Pending final pathology results, ? anticipate repeat exam in 6-9 months ? to insure complete resection of the ? polyp. ? Attending Participation: ? I personally performed the entire procedure. ? __ L. Donnie Jimenez MD 06/27/2021 11:01:04 AM Number of Addenda: 0 Note Initiated On: 06/27/2021 9:13 AM PROVATION 06/27/2021 9:13 AM EST Juan Fitzpatrick MD GENERAL SURGICAL ORDERABLES PROVATION documented in this encounter Visit Diagnoses Not on filedocumented in this encounter Administered Medications Inactive Administered Medications - up to 3 most recent administrations Medication Order MAR Action Action Date Dose Rate Site lactated ringers infusion 100 mL/hr, Intravenous, CONTINUOUS, Starting on Fri06/27/21 at 0830, Until Fri06/27/21 at 1334, Endoscopy (Day of Procedure) New Bag 06/27/2021 8:40 AM EST 100 mL/hr 100 mL/hr documented in this encounter Active and Recently Administered Medications Times are shown in EST. Continuous Medication Order 06/25/2021 06/26/2021 06/27/2021 lactated ringers infusion 100 mL/hr, Intravenous, CONTINUOUS, Starting on Fri06/27/21 at 0830, Until Fri06/27/21 at 1334, Endoscopy (Day of Procedure) 0840 (New Bag - Prov ider: Jaclyn Melvin RN) documented in this encounter Care Teams Tool Dispatcher Relationship Specialty Start Date End Date Marco Antonio-Nini Landrum MD [address] [place] [address] PCP - General 06/26/10 documented as of this encounter
--- OUTSIDE RECORDS SUMMARY | 2024-08-27 00:49 | XMS_ITS | Encounter Summary ---
[place] [address] Care Team Providers Care Qa Developer Name Role Phone Nini Machado MD Primary Care Provider [phone] Encounter Details Date Type Department Care Team (Late st Contact Info) Description 06/26/2021 [place] [address] Kary Doyle, RN Social History Tobacco Use Types Packs/Day [...] encounter Miscellaneous Notes * Telephone Encounter - Kary Doyle RN - 06/26/2021 2:49 PM EST RESEARCH NURSE TELEPHONE NOTE [id number], Limited Stage Small Cell Lung Cancer (LS-SCLC): APhase III Randomized Study of Chemoradiation Versus Chemoradiation Plus Atezoluzamb ([id number]) ([id number]) Date: 06/26/2021 Time: 2:49 PM Study Day: NA Reason for call: Follow up regarding interest in study Spoke w/ Stefanie who stated she had her family read through the consent form with her as she doesn't read very well. She states that she is interested in the study. I advised her that I would let Dr Fitzpatrick know tomorrow when he was back in clinic. I informed her that she would need to come back for a consent appointment and we would work with her schedule. Education Provided: Plan: 1. Pt expressed interest in study participation. 2. Dr Fitzpatrick to be informed when back in clinic. Appt to be set up for consent. Pt understands and agrees with plan and knows she can call the clinic with any further questions orconcerns. documented in this encounter Plan of Treatment Upcoming Encounters Date Type Department Care Team (Late st Contact Info) Description 08/30/2024 2:00 PM EST Office Visit Hematology/Oncology at [address] [phone] Mars Conley MD [facility] [place] [address] Cailin Marrero APRN [address] [place] [address] DR [place] [address] 09/07/2024 9:00 AM EST Office Visit General Surgery at [place] [phone] Raven Alvarado MD [facility] [place] [address] 10/04/2024 1:15 PM EST Office Visit Neurology at [place] [phone] Feliciano Shay, [facility] [place] [address] documented as of this encounter Visit Diagnoses Not on filedocumented in this encounter Care Teams Qa Developer Relationship Specialty Start Date End Date Marco Antonio-Nini Landrum MD [address] [address] PCP - General 06/26/10 documented as of this encounter
--- OUTSIDE RECORDS SUMMARY | 2024-08-27 00:49 | XMS_ITS | Encounter Summary ---
Author Organization [facility] Address [facility] [place] [address] Care Team Providers Care Railroad Operator Name Role Phone Nini Machado MD Primary Care Provider [phone] Encounter Details Date Type Department Care Team (Late st Contact Info) Description 07/06/2021 Notes Only H[place]ology [place] [phone] Janeen Krishnamurthy, SENIOR TECHNOLOGIST Social History Tobacco Use Types Packs/Day Years [...] as of this encounter Progress Notes * Janeen Krishnamurthy MSW - 07/06/2021 11:55 AM EST Continuing Flight Dynamicist-Social Work Note [facility]/Office of Care Management Referral/Contact: 07/05/21 - Met with Stefanie today in Infusion for follow up to our meeting on 07/02. Provided gas diandra Nathan Cartwright brochure. Stefanie shares that she will be getting her treatments at [facility] in [facility] after tomorrow. Provided her with name of Nancy Parks, social service coordinator at [facility] who can be a resource to Stefanie while receiving treatment there. Stefanie was appreciative of the information and resources. Sent message to RAYA Hunter for continuity of care. Intervention(s): Care Coordination Transportation resources Lodging Plan: KANDIS- remains available for psychosocial assessment, support, and resource coordination as needed. BETSY Becerra, STRETCHER OPERATOR Pager: [phone] documented in this encounter Plan of Treatment Upcoming Encounters Date Type Department Care Team (Late st Contact Info) Description 08/30/2024 2:00 PM EST Office Visit Hematology/Oncology at [address] [phone] Mars Conley MD [facility] DR [place] [address] Cailin Marrero [address] HEMATOLOGY [place] [address] 09/07/2024 9:00 AM EST Office [place] [phone] Raven Alvarado MD [facility] [place] [address] 10/04/2024 1:15 PM EST [place] [phone] Feliciano Shay, [facility] [place] [address] documented as of this encounter Visit Diagnoses Not on filedocumented in this encounter Care Teams Railroad Operator Relationship Specialty Start Date End Date Marco Antonio-Nini Landrum MD [address] [address] PCP - General 06/26/10 documented as of this encounter
--- OUTSIDE RECORDS SUMMARY | 2024-08-27 00:49 | XMS_ITS | Encounter Summary ---
Author Organization [facility] [place] [address] Care Team Providers Care Assembler Watch Train Name Role Phone Nini Machado MD Primary Care Provider [phone] Encounter Details Date Type Department Care Team (Late st Contact Info) Description 06/21/2021 Orders Only Hematology [place] [phone] Minna Rascon, DATA MODELER Social History Tobacco Use Types Packs/Day Years [...] PM EST Office Visit Hematology/Oncology at [address] [phone] Mars Conley MD [facility] DR [place] [address] Cailin Marrero APRN [address] [place] [address] DR HEMATOLOGY AND ONCOLOGY [place], [place] [address] 09/07/2024 9:00 AM EST Office [place] [phone] Raven Alvarado MD [facility] [place] [address] 10/04/2024 1:15 PM EST Office [place] [phone] Feliciano Shay, [facility] [place] [address] documented as of this encounter Visit Diagnoses Not on filedocumented in this encounter Care Teams Assembler Watch Train Relationship Specialty Start Date End Date Nini Machado, MD [address] [place] [phone] PCP - General 06/26/10 documented as of this encounter
--- OUTSIDE RECORDS SUMMARY | 2024-08-27 00:49 | XMS_ITS | Encounter Summary ---
Author Organization [facility] Address [facility] [place] [address] Care Team Providers Care Product Safety Manager Name Role Phone Nini Machado MD Primary Care Provider [phone] Encounter Details Date Type Department Care Team (Late st Contact Info) Description 06/27/2021 8:45 AM EST - 06/27/2021 9:45 AM EST Surgery [place] [address] Marichuy Jimenez MD [facility] [place] [address] COLONOSCOPY, POLYPECTOMY, REMOVAL LESION BY SNARE (WRVU 4.57) Social History Tobacco Use Types Packs/Day Years [...] Sign Reading Time Taken Comments Blood Pressure 108/60 06/27/2021 8:25 AM EST Pulse 77 06/27/2021 8:25 AM EST Temperature 36.8 ??C (98.3 ??F) 06/27/2021 8:25 AM ES T Respiratory Rate 15 06/27/2021 8:25 AM EST Oxygen Saturation 95% 06/27/2021 8:25 AM EST Inhaled Oxygen Concentration - [...] 2:00 PM EST Office Visit Hematology/Oncology at [address] [phone] Mars Conley MD [facility] DR HEMATOLOGY [place] [address] Cailin Marrero APRN [address] [place] [address] DR HEMATOLOGY AND ONCOLOGY [place], [place] [address] 09/07/2024 9:00 AM EST Office Visit [place] [phone] Raven Alvarado MD [facility] [place] [address] 10/04/2024 1:15 PM EST Office Visit [place] [phone] Feliciano Shay, [facility] [place] [address] documented as of this encounter Procedures Procedure Name Priority Date/Time Associated Diagnosis Comments SPECIMEN TO PATHOLOGY Routine 06/27/2021 10:28 AM EST SPECIMEN TO PATHOLOGY Routine 06/27/2021 10:28 AM EST SURGICAL PATHOLOGY REPORT Routine 06/27/2021 10:06 AM EST Colonoscpy, Flex, W/Dir Submuc Inject ([id number]) 06/27/2021 9:19 AM EST new diagnosis of small cell lung cancer, FDG avid colon lesion - ? met vs primary Colonoscopy, Remv Lesn, Snare ([id number]) 06/27/2021 9:19 AM EST new diagnosis of small cell lung cancer, FDG avid colon lesion - ? met vs primary COLONOSCOPY Routine 06/27/2021 9:13 AM EST documented in this encounter Results * Specimen to Pathology (06/27/2021 10:28 AM EST) AP Specimen 06/27/2021 10:2 8 AM EST 06/27/2021 10:28 AM EST Narrative [facility] - 06/27/2021 10:28 AM EST Specimen requisition ordered. ??Separate Pathology report to follow L Donnie Jimenez MD PATHOLOGY/CYTOLOGY O BRANDIN Performing Organization Address [facility] [place] [address] * Specimen to Pathology (06/27/2021 10:28 AM EST) AP Specimen 06/27/2021 10:2 8 AM EST 06/27/2021 10:28 AM EST Narrative [facility] - 06/27/2021 10:28 AM EST Specimen requisition ordered. ??Separate Pathology report to follow L Donnie Jimenez MD PATHOLOGY/CYTOLOGY O BRANDIN Performing Organization Address [facility] [place] [address] * Surgical Pathology Report (06/27/2021 10:06 AM EST) Final Diagnosis [id number] ? Location: 4T; EA11; A The signing pathologist has (i) examined [...] Mickie Verified: ??07/06/2021 14:58 ??Pathologist Performed at: ??-[facility] [place] [place] Dept. of Pathology, [place], [place] DISCUSSION The results were discussed with [...] Multiple, ranging from 0.3-0.5 cm. Tissue Description: [place]. Sections/Process ing: Submitted en toto ??in 2 cassettes labeled B1-B2. ??sns 07/06/2021 2:58 PM EST [facility] GI Biopsy 06/27/2021 10:0 6 AM EST 06/27/2021 10:06 AM EST GI Biopsy 06/27/2021 10:0 6 AM EST 06/27/2021 10:06 AM EST L Donnie Jimenez MD PATHOLOGY/CYTOLOGY O RDERABLES [facility] [place] [place] [address] * COLONOSCOPY (06/27/2021 9:13 AM EST) COLONOSCOPY [facility] Endoscopy Procedure Date: 06/27/2021 9:13 AM ? Patient Name: Stefanie Pina ? Date of : 1955 ? Age: 65 ? Order #: [id number] ? Instrument Name: [id number] ? Procedure: ? Colonoscopy Indications: ? Abnormal PET scan of the GI tract Providers: ? Tye Jimenez MD, Zayda Osborn, ? Meir Navarrete MD: ?Nini Machado MD, Juan Forman ? MD Amari Medicines: ? Monitored Anesthesia [...] preparation was evaluated using ? the BBPS ([place] Bowel Preparation ? Scale) with scores of: [...] personally performed the entire procedure. ? __ Tye Jimenez MD 06/27/2021 11:01:04 AM Number of [...] RN) documented in this encounter Care Teams Product Safety Manager Relationship Specialty Start Date End Date Marco Antonio-Nini Landrum MD [address] [place] [address] PCP - General 06/26/10 documented as of this encounter
--- OUTSIDE RECORDS SUMMARY | 2024-08-27 00:49 | XMS_ITS | Encounter Summary ---
Author Organization [facility] Address [facility] [place] [address] Care Team Providers Care Resident Surgeon Name Role Phone Nini Machado MD Primary Care Provider [phone] Encounter Details Date Type Department Care Team (Late st Contact Info) Description 07/17/2021 Interpretation Only [address] [phone] Hina Rodriguez Jr., DO [address] [place], [place] [id number] Social History Tobacco Use Types Packs/Day Years [...] PM EST Office Visit Hematology/Oncology at [address] [phone] [facility] [address] [place] [address] Cailin Marrero APRN [address] [place] [address] DR HEMATOLOGY [place] [address] 09/07/2024 9:00 AM EST Office [place] [phone] [facility] [place] [address] 10/04/2024 1:15 PM EST Office [place] [address] Feliciano Shay, [facility] [place] [address] documented as of this encounter Procedures Procedure Name Priority Date/Time Associated Diagnosis Comments CT ABDOMEN AND PELVIS W CONTRAST STAT 07/17/2021 8:26 AM EST documented in this encounter Results * CT Abdomen & Pelvis w Contrast (07/17/2021 8:26 AM EST) PT CLASS E RAD ADMITDTTM RAD PT RAD INFO [id number]^B ROWN^HINA^ A RAD EXAM DESC CTAPW^CT ABD AND PELVIS WITH CONTRAS^RIS RAD Anatomical Region Laterality Modality Abdomen, Pelvis Computed Tomogra phy Impressions 07/17/2021 8:43 AM EST 1. ??Acute uncomplicated sigmoid diverticulitis. 2. ??Ancillary findings as above. Thank you for letting us participate in the care of this patient. ??If you are a health care provider and have any questions regarding this report, please contact the number below. ??For patients who have questions please contact the health medicare coordinator that requested your imaging first. ? Narrative 07/17/2021 8:43 AM EST EXAMINATION: CT ABD AND PELVIS WITH CONTRAS CLINICAL HISTORY: LLQ Pain TECHNIQUE: Helical CT of the abdomen and pelvis was performed following the intravenous administration of 100 ml of Omnipaque 350. Oral contrast was not administered. COMPARISON: June 06, 2021 FINDINGS: Lower chest: Normal. Liver: Normal size [...] the lower lumbar spine. No suspicious lesions. Procedure Note Antoni Ramirez MD - 07/17/2021 EXAMINATION: CT ABD AND PELVIS WITH CONTRAS CLINICAL HISTORY: LLQ Pain TECHNIQUE: Helical CT of the abdomen and pelvis was performed followingthe intravenous administration of 100 ml of Omnipaque 350. Oral contrast wasnot administered. COMPARISON: June 06, 2021 FINDINGS: Lower chest: Normal. Liver: Normal size and attenuation without suspicious lesions. Unchangedsmall cyst in the right lobe. Bile ducts: Persistent CBD dilatation at 12 mm. Gallbladder: No calcified gallstones. Normal caliber wall. Pancreas: Normal attenuation. Mild uniform prominence of the mainpancreatic duct. Spleen: Normal. Adrenals: Normal. Kidneys: Normal. Urinary Bladder: Normal. Vasculature: Dense atherosclerotic calcifications in the abdominal aortaand the iliac arteries. No aneurysmal dilatation. Lymph Nodes: No enlarged lymph nodes. Bowel: No abnormal small bowel dilatation or air-fluid levels. Moderatevolume formed colonic stool. Chronic thickening of the sigmoid colon containing multiple diverticula. An inflamed sigmoid diverticulum surrounded bymesenteric fat stranding. Peritoneum and mesentery: No ascites, free air, or loculated fluidcollection. Abdominal wall: Intact Reproductive organs: Normal. Evidence of prior tubal ligation. Osseous structures: Facet hypertrophic changes in the lower lumbar spine.No suspicious lesions. IMPRESSION 1. Acute uncomplicated sigmoid diverticulitis. 2. Ancillary findings as above. Thank you for letting us participate in the care of this patient. If youare a health care provider and have any questions regarding this report,please contact the number below. For patients who have questions please contactthe health medicare coordinator that requested your imaging first. Hina Rodriguez Jr., DO IMG CT ORDERABLES documented in this encounter Visit Diagnoses Not on filedocumented in this encounter Care Teams Resident Surgeon Relationship Specialty Start Date End Date Marco Antonio-Nini Landrum MD [address] [place], [place] [id number] PCP - General 06/26/10 documented as of this encounter
--- OUTSIDE RECORDS SUMMARY | 2024-08-27 00:49 | XMS_ITS | Encounter Summary ---
Author Organization [facility] [place] [address] Care Team Providers Care Environmental Services Specialist Name Role Phone Nini Machado MD Primary Care Provider [phone] Reason for Referral * Diagnostic Test (Routine) - Closed Specialty Diagnoses / Procedures Referred By Contac t Referred To Contact Radiology Diagnoses Small cell carcinoma of lung Procedures CT Chest w Contrast Juan Fitzpatrick MD [facility] [place] [address] [facility] [place] [address] Referral ID Status Reason Start Date Expiration Date V isits Requested Visits Authorized [id number] Closed Specialty Service Requested 07/12/2021 01/09/2023 1 1 Reason for Visit * Diagnostic Test (Routine) - Closed Specialty Diagnoses / Procedures Referred By Contac t Referred To Contact Radiology Diagnoses Small cell carcinoma of lung Procedures CT Chest w Contrast Juan Fitzpatrick MD [facility] [place] [address] [facility] [place] [address] Referral ID Status Reason Start Date Expiration Date V isits Requested Visits Authorized [id number] Closed Specialty Service Requested 07/12/2021 01/09/2023 1 1 Encounter Details Date Type Department Care Team (Ar st Contact Info) Description 07/24/2021 1:36 PM EST - 07/24/2021 11:59 PM EST Hospital Encounter CT Scan at [facility] [place] [address] Juan Fitzpatrick MD [facility] [place] [address] Small cell carcinoma of lung Discharge Disposition: [...] Take 10 mg by mouth nightly. 01/29/2021 omeprazole (PriLOSEC) 20 mg Capsule, Delayed Release(E.C.) Take 1 capsule by mouth daily. 30 capsule 3 07/12/2021 11/06/2021 prochlorperazine (Compazine) 10 mg Tablet Take 1 [...] Sustained Release 2 times daily. 06/02/2021 08/06/19 sertraline (ZOLOFT) 100 mg Tablet daily. 11/06/2018 08/06/2021 cyclobenzaprine (Flexeril) 10 mg Tablet take 1 tablet by mouth every 12 hours if needed for 5 days 12/31/2020 08/06/2021 loratadine (Claritin) 10 mg Tablet as needed. 07/12/2015 08/06/2021 calcium carbonate (CALCIUM 500 ORAL) Take by mouth. 022 baclofen (LIORESAL) 10 mg tablet 11/17/2009 08/16/2021 documented as of this encounter Plan of Treatment Upcoming Encounters Date Type Department Care Team (Late st Contact Info) Description 08/30/2024 2:00 PM EST Office Visit Hematology/Oncology at [address] [phone] Mars Conley MD [facility] DR HEMATOLOGY [place] [address] Cailin Marrero APRN [address] [place] [address] DR [place] [address] 09/07/2024 9:00 AM EST Office [place] [phone] Raven Alvarado MD [facility] [place] [address] 10/04/2024 1:15 PM EST Office [place] [phone] Feliciano Shay, [facility] [place] [address] documented as of this encounter Procedures Procedure Name Priority Date/Time Associated Diagnosis Comments CT CHEST W CONTRAST Routine 07/24/2021 3 :03 PM EST Small cell carcinoma of lung documented in this encounter Results * CT [...] who have questions please contact the health senior caregiver that requested your imaging first. ? Electronically signed by: Awilda Keating MD, [facility] ([phone]), at 07/24/2021 4:37 PM Narrative 07/24/2021 4:37 [...] patients who have questions please contactthe health senior caregiver that requested your imaging first. Juan Fitzpatrick MD [facility] CT ORDERABLE S documented in this encounter Visit Diagnoses Diagnosis Small cell carcinoma of lung Malignant neoplasm of bronchus and lung, unspecified site documented in this encounter Administered Medications Inactive Administered Medications - up to 3 most recent administrations Medication Order MAR Action Action Date Dose Rate Site iohexoL (Omnipaque) (350 mg/mL) solution 0-200 mL 0-200 mL, Intravenous, ONCE PRN, 1 dose, Starting on Fri07/24/21 at 1445, Until Fri07/24/21 at 1459, Per Protocol, Warning Vesicant/Irritant Medication , Radiology Contrast, Routine Given 07/24/2021 2:59 PM EST 60 mLs documented in this encounter Care Teams Environmental Services Specialist Relationship Specialty Start Date End Date Marco Antonio-Nini Landrum MD [address] [place] [address] PCP - General 06/26/10 documented as of this encounter
--- OUTSIDE RECORDS SUMMARY | 2024-08-27 00:49 | XMS_ITS | Encounter Summary ---
Author Organization [facility] [place] [address] Care Team Providers Care Offset Duplicating Machine Operator Name Role Phone Nini Machado MD Primary Care Provider [phone] Reason for Visit * Treatment/Therapy Plan Authorization (Routine) - Closed Specialty Diagnoses / Procedures Referred By Aldo sotelo Referred To Contact Diagnoses Small cell carcinoma of lung Juan Fitzpatrick MD [facility] [place] [address] Referral ID Status Reason Start Date Expiration Date Visits Re quested Visits Authorized [id number] Closed 06/21/2021 06/21/2022 99 99 Encounter Details Date Type Department Care Team (Latest Contact Info) Description 07/04/2021 8:35 AM EST - 07/04/2021 11:59 PM [facility] Hospital Encounter [place] [address] Small cell carcinoma of lung Discharge Disposition: [...] Sign Reading Time Taken Comments Blood Pressure 146/74 07/04/2021 1:05 PM EST Pulse 68 07/04/2021 1:05 PM EST Temperature 36.9 ??C (98.4 ??F) 07/04/2021 1:05 PM ES T Respiratory Rate 20 07/04/2021 1:05 PM EST Oxygen Saturation 94% 07/04/2021 1:05 PM EST Inhaled Oxygen Concentration - - [...] Progress Notes * Lauren Sanderson RN - 07/04/2021 12:13 PM EST Patient Name: Stefanie Pina Patient Age: 65 y.o. Birthdate: 1955 Admit date: 07/04/2021 Attending Physician: Emily att. providers found TIME TREATMENT STARTED: 11:00 TIME TREATMENT ENDED: 15:40 Stefanie Pina, 65 y.o. female with diagnosis of lung cancer is here for chemotherapy infusion ofcarboplatin and etoposide. REGIMEN: carboplatin/etoposide CYCLE: 1 DAY: 1 S: Stefanie is tearful and nervous but says she is ready to get started. O: Chemotherapy orders independently verified for correct drug name, route and dosage per patient'sheight, weight and BSA by Lauren Sanderson RN, Cathie Grader RN and onsite pharmacist. Teaching done re: drug regimen, expected side effects, nausea management at home, and infection prevention. REACTIONS (DESCRIPTION, TIME, INTERVENTION AND EFFECTIVENESS) 12:55 - Stefanie rang her call light. Reporting chest tightness, difficulty breathing. Face and chest were bright red. Infusion stopped. 12:57 - Normal saline bolus initiated and hypersensitivity meds of dexamethasone, diphenhydramine, and famotidine given over the next 3 minutes. 13:02 - Dilcia is reporting a total resolution of her symptoms. Minna Rascon APRN gave instructions to restart after 30 minutes at half the rate for 30 minutes then increase to the full rate. Stefanie was then able to tolerate the rest of her infusion without incident. A: See details above. Stefanie Pina confirms that all questions and issues have been addressed. P: Return to clinic and Friday for days 2 & 3 etoposide. documented in this encounter Plan of Treatment Upcoming Encounters Date Type Department Care Team (Late st Contact Info) Description 08/30/2024 2:00 PM EST Office Visit Hematology/Oncology at [address] [phone] Mars Conley MD [facility] [address] H[place]AT[place] [address] Cailin Marrero APRN [address] [place] [address] DR HEMATOLOGY [place] [address] 09/07/2024 9:00 AM EST Office [place] [address] Raven Alvarado MD [facility] [place] [address] 10/04/2024 1:15 PM EST [place] [phone] Feliciano Shay, [facility] [place] [address] documented as of this encounter Results * Lactate Dehydrogenase (07/04/2021 8:53 AM EST) Lactate Dehydrogenase 175 110 - 220 unit/L [facility] Blood 07/04/2021 8:53 AM EST 07/04/2021 9:00 AM EST Narrative Resulting Agency Comment Spec In Lab Juan Fitzpatrick MD CHEMISTRY ORDERA BLES [facility] [place] [address] * Comprehensive metabolic panel (non-fasting) (07/04/2021 8:53 AM EST) Glucose 96 65 - 199 mg/dL [facility] Comment:Diabetes: >=200 mg/d L plus symptoms Blood Urea Nitrogen 16 8 - 18 mg/dL [facility] Creatinine 0.91 0.70 - 1.20 mg/dL [facility] Sodium 144 135 - 145 mmol/L [facility] Potassium 4.4 3.5 - 5.0 mmol/L [facility] Comment: Please note: ??Patients with WBC >100,000 may have falsely elevated Potassium levels. ??For accurate Potassium quantification in these patients send serum separator tube (gold top) for subsequent determinations. ??Contact the Clinical Chemistry Laboratory if there are any questions. Chloride 107 98 - 107 mmol/L [facility] Carbon Dioxide 26 22 - 31 mmol/L [facility] Anion Gap 11 5 - 15 mmol/L [facility] Calcium 9.7 8.5 - 10.5 mg/dL [facility] Protein, Total 7.1 6.1 - 8.0 g/dL [facility] Albumin 4.4 3.2 - 5.2 g/dL [facility] Aspartate Aminotransferase 13 0 - 30 unit/L [facility] Alanine Aminotransferase 10 0 - 30 unit/L [facility] Alkaline Phosphatase 63 35 - 105 unit/L [facility] Bilirubin, Total 0.2 0.2 - 1.3 mg/dL [facility] Est Glomerular Filtration Rate 66 >=60 mL/min/1. 73 m?? [facility] Comment: This patient? s estimated glomerular filtration rate (eGFR) is between 66 mL/min/1.73 m2 (patients with less muscle mass) and 77 mL/min/1.73 m2 (patients with more muscle mass) [...] and symptoms in addition to eGFR. Blood 07/04/2021 8:53 AM EST 07/04/2021 9:00 AM EST Narrative Resulting Agency Comment Spec In Lab Juan Fitzpatrick MD CHEMISTRY ORDERA [facility] Organization Address City/State/ZIP Co de Phone Number [facility] [place] [address] documented in this encounter Visit Diagnoses Diagnosis Small cell carcinoma of lung Malignant neoplasm of bronchus and lung, unspecified site documented in this encounter Administered Medications Inactive Administered Medications - up to 3 most recent administrations Medication Order MAR Action Action Date Dose Rate Site aprepitant (CINVANTI) injection Emul 130 mg 130 mg, Intravenous, Administer over 2 Minutes, ONCE, 1 dose, On Fri07/04/21 at 1100, Alternative administration of IV push over 2 minutes is a recommendation from the mirror machine feeder. Administer prior to chemotherapy., Routine Given 07/04/2021 11:31 AM EST 130 mg CARBOplatin (Paraplatin) 408 mg in dextrose 5% 290.8 mL infusion 408 mg (Target AUC = 5), Intravenous, ONCE, 1 dose, On Fri07/04/21 at 1200, Administer over 30 Minutes, Warning Vesicant/Irritant Medication New Bag 07/04/2021 12:09 PM EST 408 mg 581.6 mL/hr dexamethasone (Decadron) injection 4 mg 4 mg, Intravenous, ONCE, 1 dose, On Fri07/04/21 at 1330 Given 07/04/2021 12:58 PM EST 4 mg dexamethasone (PF) (Decadron) (10 mg/mL) injection 10 mg 10 mg, Intravenous, ONCE, 1 dose, On Fri07/04/21 at 1100, Administer prior to chemotherapy Given 07/04/2021 11:31 AM EST 10 mg diphenhydrAMINE (Benadryl) (50 mg/mL) injection 25 mg 25 mg, Intravenous, ONCE PRN, 2 doses, Starting on Fri07/04/21 at 1259, Until Parisa 07/05/21 at 0434, Itching, for itching, hives and flushing., IV push over 1 minute once. May repeat once after 10 minutes., Routine Given 07/04/2021 12:57 PM EST 25 mg etoposide (Vepesid) 165 mg in sodium chloride 0.9% Non-PVC 508.25 mL infusion 165 mg (100 mg/m2/dose ? 1.65 m2 Treatment Plan BSA from Recorded weight), Intravenous, ONCE, 1 dose, On Fri07/04/21 at 1200, Administer over 90 Minutes, Warning Vesicant/Irritant Medication Rate/Dose Change 07/04/2021 2:10 PM EST 338.8 mL/hr Restarted 07/04/2021 1:40 PM EST 338.8 mL/hr New Bag 07/04/2021 12:51 PM EST 165 mg 338.8 mL/hr famotidine (Pepcid) (10 mg/mL) injection 20 mg 20 mg, Intravenous, ONCE, 1 dose, On Fri07/04/21 at 1330, IV push over 1 minute once., Routine Given 07/04/2021 1:00 PM EST 20 mg palonosetron (Aloxi) (0.05 mg/mL) injection 0.25 mg 0.25 mg, Intravenous, ONCE, 1 dose, On Fri07/04/21 at 1100, Administer over 30 seconds., Routine Given 07/04/2021 11:31 AM EST 0.25 mg sodium chloride 0.9% infusion 500 mL, Intravenous, CONTINUOUS, Starting on Fri07/04/21 at 1330, Until Parisa 07/05/21 at 0434, Ensure patent IV access to keep vein open New Bag 07/04/2021 12:57 PM EST 500 mLs documented in this encounter Care Teams Offset Duplicating Machine Operator Relationship Specialty Start Date End Date Marco Antonio-Nini Landrum MD [address] [place] [address] PCP - General 06/26/10 documented as of this encounter
--- OUTSIDE RECORDS SUMMARY | 2024-08-27 00:49 | XMS_ITS | Encounter Summary ---
Author Organization [facility] [place] [address] Care Team Providers Care Binder Stripper Machine Name Role Phone Nini Machado MD Primary Care Provider Reason for Visit * Reason Comments Simulation * Consultation (Routine) - Closed Specialty Diagnoses / Procedures Referred By Aldo sotelo Referred To Contact Radiation Oncology Diagnoses Small cell carcinoma of lung Procedures Simulation for Radiation Therapy Planning Senthil Muller MD [facility] [place] [address] [facility] [place] [address] Referral ID Status Reason Start Date Expiration Date V isits Requested Visits Authorized [id number] Closed Consult, Test & Treat 07/02/2021 07/02/2022 1 1 Encounter Details Date Type Department Care Team (Late st Contact Info) Description 07/12/2021 11:00 AM EST Ancillary Appointment Radiation [place] [address] Senthil Muller MD [facility] [place] [address] Social History Tobacco Use Types [...] Sign Reading Time Taken Comments Blood Pressure 165/77 07/12/2021 10:21 AM EST Pulse 67 07/12/2021 10:21 AM EST Temperature 36.2 ??C (97.1 ??F) 07/12/2021 10:[address] Respiratory Rate 18 07/12/2021 10:21 AM EST Oxygen Saturation 98% 07/12/2021 10:21 AM EST Inhaled Oxygen Concentration - - Weight 58.7 kg (129 lb 6.4 oz) 07/12/2021 10:21 AM EST Height - - Body Mass Index 20.8 07/04/2021 9:45 AM EST documented in this encounter Patient Instructions * Patient Instructions* Mae Bojorquez RN - 07/12/2021 11:00 AM EST General instructions for Radiation therapy Radiation Oncology Team ?? Radiation Oncologist -The doctor who will direct all aspects of your radiation treatments ?? Nurse Practitioner - They assist your doctor in treating your side effects and with follow up appointments. ?? Registered Nurse - They satnam you in learining about you radaiton treatments, , and things you can do to help manage the side effects. ?? Street Light Repairer Helper - They take the doctors radiation prescription and customize it into doses (or days of treatments) specific for you. ?? Physicist - They make sure all the machines are operating correctly and double check calculations for your treatment. ?? Radiation Technologists - They operate the machines which deliver your radiation. You see them daily and they schedule your treatments. ?? Simulation CT/ Planning Session- Your first step [...] your doctor, the dosimetrists and the physicist. ?? Skin Care - Your nurse/physician will provide [...] area out of the sun during treatments. ?? General precautions- DO NOT USE heating pads, [...] a well balanced diet is recommended. The stained glass joiner and nurse will inform you of any special diet requirements. Avoid shaving the treatment area with a razor. If you must shave use an electric razor. Our Contact numbers Section of Radiation Oncology Our normal business hours are: Friday - Friday: 8:00 AM to 5:00 PM [facility]: [facility]: If you have questions about your [...] a seizure 6. Fall resulting in injury ?? A Radiation Oncology doctor is examination scorer after our normal hours and on weekends. ?? To call for urgent medical issues from radiation treatments that can not wait until normal business hours: ?? Call for either location and have the press operator carbon products page the Radiation Oncologist examination scorer. ?? documented in this encounter Progress Notes * Mae Bojorquez RN - 07/12/2021 11:00 AM EST Section of Radiation Oncology Contrast Information Safety Questions 1. Has the patient ever had an x-ray study before which involved injection of a contrast agent or x-ray dye? yes If yes, did the patient have any reaction to the injection? no If yes, please describe the reaction: n/a 2. Is the patient allergic to any foods, medicines, or other substances? yes Allergies Allergen Reactions ??? Aspirin CIS - Anaphylaxis ??? Nitrofurantoin Monohyd/M-Cryst Other reaction(s): hands tingling, pins and needles, face swollen. ??? Nsaids (Non-Steroidal Anti-Inflammatory Drug) Other reaction(s): Shock / Unconsciousness; ??? Penicillins Other reaction(s): Dermatological problems, e.g., rash, hives; ??? Red Blood Cells Other (See Comments) Antibodies-Difficult to Crossmatch DO NOT REMOVE Please contact the Blood Bank at [phone] for questions. ??? Sulfamethoxazole-Trimethoprim Other reaction(s): Respiratory problems, e.g., wheezing;Dermatological problems, e.g., rash, hives; ??? Methadone Other reaction(s): vomiting ??? Mold Extracts ??? Mushroom Flavor 3. Has the patient received any contrast within the past 24 hours? no 4. Does the patient have any procedures scheduled in the next 24 hours? no 5. Does the patient have a history of renal/kidney problems or kidney surgery? no 6. Does the patient have diabetes? no 7. Does the patient have high blood pressure? no 8. Is the patient currently being treated for gout? no 9. If the answer to any of the questions #5-8 was yes, has the patient had a creatinine level and eGFR drawn within the past 45 days? yes Lab Results Component Value Date CREATININE 0.91 07/04/2021 If no, when will it be drawn? A creatinine less than or equal to 1.6 and a eGFR of 45 or greater OK to proceed with IV contrast. If the creatinine is greater than 1.6 and the eGFR is less than 45, consult with the ordering provider. If an eGFR is less than 30, IV contrast should not be administered and another contrast agent may be ordered by the provider (Visipaque). 10. Is the patient currently taking any of the following medications? (Actoplus Met, Avandamet, Glucovance, Janumet, Jendadueto, Kombiglyze, Metaglip, PrandiMet, Glugophage, Glumetza, Riomet, Metformin) [x} No If yes, when was last dose taken? 9. If patient is on any of the medications in question #10, consult with the ordering provider if the patient needs to stop the medication and if they will require further lab studies. * Senthil uMller MD - 07/12/2021 11:00 AM EST Images from the original note [...] with the following parameters: Body part scanned: Chest/upper abdomen IV contrast used: Yes 4DCT performed: Yes Treatment start date: 07/30/2021 Notes: I met with her pre-procedure to discuss the treatment plan and to obtain written informed consent for radiation treatment; she previously consented to participation on clinical trial NRG LU002. She would like to have her radiation therapy done at [facility] and on the BID schedule. Senthil Muller MD [facility] Radiation Oncology [email or web address] [email or web address] phone [phone] fax [phone] documented in this encounter Plan of Treatment Upcoming Encounters Date Type Department Care Team (Late st Contact Info) Description 08/30/2024 2:00 PM EST Office Visit Hematology/Oncology at [address] [phone] Mars Conley MD [facility] DR HEMATOLOGY [place] [address] Cailin Marrero APRN [address] [place] [address] DR [place] [address] 09/07/2024 9:00 AM EST Office Visit General Surgery at [place] [phone] Raven Alvarado MD [facility] [place] [address] 10/04/2024 1:15 PM EST Office Visit [place] [phone] Feliciano Shay, [facility] [place] [address] Scheduled Orders Name Type Priority Associated Diagnoses Orde r Schedule Simulation for Radiation Therapy Planning Procedures Routine Small cell carcinoma of lung Ordered: 07/02/2021 documented as of this encounter Visit Diagnoses Not on filedocumented in this encounter Care Teams Binder Stripper Machine Relationship Specialty Start Date End Date Marco Antonio-Nini Landrum MD [address] [address] PCP - General 06/26/10 documented as of this encounter
--- OUTSIDE RECORDS SUMMARY | 2024-08-27 00:49 | XMS_ITS | Encounter Summary ---
Author Organization [facility] Address [facility] [place] [address] Care Team Providers Care Discount Clerk Name Role Phone Nini Machado MD Primary Care Provider Encounter Details Date Type Department Care Team (Late st Contact Info) Description 06/26/2021 2:54 PM EST - 06/26/2021 11:59 PM EST Hospital Encounter [facility] [address] [place] [address] Nini Machado MD 79 [facility] [address] [place], [place] [id number] Discharge Disposition: Home Social History Tobacco Use [...] PM EST Office Visit Hematology/Oncology at [address] [phone] Mars Conley MD [facility] DR HEMATOLOGY [place] [address] Cailin Marrero APRN [address] [place] [address] DR HEMATOLOGY AND ONCOLOGY [place], [place] [address] 09/07/2024 9:00 AM EST Office Visit [place] [phone] Raven Alvarado MD [facility] [place] [address] 10/04/2024 1:15 PM EST Office [place] [phone] Feliciano Shay, [facility] [place] [address] documented as of this encounter Procedures Procedure Name Priority Date/Time Associated Diagnosis Comments COVID-19 PCR Routine 06/26/2021 12:01 AM EST documented in this encounter Results * COVID-19 PCR (06/26/2021 12:01 AM EST) SARS-CoV-2 RNA Not Detected Not Detected [facility] Comment: This result should be interpreted in combination with the clinical observations, patient history and epidemiological information in making a final diagnosis. For testing of asymptomatic individuals, assay performance characteristics and clinical utility have not been evaluated. Testing for SARS-CoV-2 (Severe acute respiratory syndrome coronavirus 2, formerly known as 2019 novel coronavirus or 2019-nCoV) to aid in the diagnosis of COVID-19 is performed using the [employer] m SARS-CoV-2 Assay as authorized by the FDA Emergency Use Authorization (EUA). This EUA assay is intended for In-vitro Diagnostic (IVD) use with respiratory specimens such as nasopharyngeal swabs collected from individuals during the acute phase of infection. This assay is performed based on the instructions for use provided by [employer], [place]. and additional guidance provided by CDC and FDA. Testing is performed in the [facility] within the Department of Pathology and Laboratory Medicine at [facility], certified under the Clinical Laboratory Improvement Amendments of 1988 (CLIA), 42 U.S.C. 263a, to perform high complexity tests. Assay performance has been verified according to clinical laboratory regulatory requirements for use with specimens collected from individuals suspected of COVID-19. Test results are provided above. A result of Not Detected indicates that the viral RNA target is not present above the limit of detection, but does not preclude SARS-CoV-2 infection. False negative results may occur if a specimen is improperly collected, transported or handled; if amplification inhibitors are present; or if inadequate numbers of viral particles are present in the specimen. When a diagnostic test is negative, the possibility of a false negative result should be considered in the context of a patient's recent exposures and the presence of clinical signs and symptoms consistent with COVID-19. A result of Detected indicates that RNA from SARS-CoV-2 was detected and the patient is infected. As required or requested by public health authorities, positive specimens may be sent for additional testing. Positive and negative predictive values for this test are highly dependent on disease prevalence. A result of Invalid indicates that neither the viral RNA targets nor the internal control target was detected. An invalid result suggests the presence of inhibitors. Recollection and re-testing is recommended in the case of an invalid result. CDC COVID-19 criteria for testing on human specimens and clinical management guidance information are available at the CDC Coronavirus Disease 2019 (COVID-19) webpage under Information for Healthcare Professionals (https://www.cdc.gov/coronavirus/2019-ncov/hcp/index.html) Additional information about this and other EUA tests can be found in provider and patient fact sheets at the following FDA website: https://www.fda.gov/medical-devices/wilgwollyfr-nnjxmzy-4246-fbyob-38-hwasmkrtg- use-a jjfmdaeziajru-akypxkv-mzetpep/wmycp-ldoltgpwbbr-tdci SARS-CoV-2 RNA Source TOBACCO HANGER Swab [facility] Nasopharyngeal Swab 06/26/20 12:01 AM EST 06/27/2021 9:56 PM EST Narrative Resulting Agency Comment Spec In Lab Nini Machado MD MOLECULAR ORDERABLES Performing Organization Address City/State/[facility] Co de Phone Number [facility] [place] [address] documented in this encounter Visit Diagnoses Not on filedocumented in this encounter Care Teams Discount Clerk Relationship Specialty Start Date End Date Nini Machado MD [address] [address] PCP - General 06/26/10 documented as of this encounter
--- OUTSIDE RECORDS SUMMARY | 2024-08-27 00:49 | XMS_ITS | Encounter Summary ---
Author Organization [facility] Address [facility] [place] [address] Care Team Providers Care Apartment Leasing Consultant Name Role Phone Nini Machado MD Primary Care Provider [phone] Encounter Details Date Type Department Care Team (Late st Contact Info) Description 07/04/2021 Orders Only Hematology [place] [address] Mars Conley MD [facility] DR [place] [address] Small cell carcinoma of lung; Medication management Social History Tobacco Use Types Packs/Day Years [...] 2:00 PM EST Office Visit Hematology/Oncology at [address] [phone] Mars Conley MD [facility] DR [place] [address] Cailin Marrero [address] HEMATOLOGY AND ONCOLOGY [place], [place] [address] 09/07/2024 9:00 AM EST Office [place] [phone] Raven Alvarado MD [facility] [place] [address] 10/04/2024 1:15 PM EST Office [place] [phone] Feliciano Shay, [facility] [place] [address] documented as of this encounter Visit Diagnoses Diagnosis Small cell carcinoma of lung Malignant neoplasm of bronchus and lung, unspecified site Medication management Encounter for long-term (current) use of other medications documented in this encounter Care Teams Apartment Leasing Consultant Relationship Specialty Start Date End Date Marco Antonio-Nini Landrum MD [address] [place] [address] PCP - General 06/26/10 documented as of this encounter
--- OUTSIDE RECORDS SUMMARY | 2024-08-27 00:49 | XMS_ITS | Encounter Summary ---
Author Organization [facility] Address [facility] [place] [address] Care Team Providers Care Hyster Driver Name Role Phone Nini Machado MD Primary Care Provider [phone] Encounter Details Date Type Department Care Team (Latest Contact Info) Description 07/24/2021 11:45 AM EST - 07/24/2021 12:23 PM [facility] Hospital Encounter [place]ology [place] [address] Discharge Disposition: Home Social History Tobacco Use [...] PM EST Office Visit Hematology/Oncology at [address] [phone] Mars Conley MD [facility] DR [place] [address] Caiiln Marrero APRN [address] [place] [address] DR [place] [address] 09/07/2024 9:00 AM EST Office [place] [phone] Raven Alvarado MD [facility] [place] [address] 10/04/2024 1:15 PM EST [place] [phone] Feliciano Shay, [facility] [place] [address] documented as of this encounter Visit Diagnoses Not on filedocumented in this encounter Care Teams Hyster Driver Relationship Specialty Start Date End Date Marco Antonio-Nini Landrum MD [address] [address] PCP - General 06/26/10 documented as of this encounter
--- OUTSIDE RECORDS SUMMARY | 2024-08-27 00:49 | XMS_ITS | Encounter Summary ---
Author Organization [facility] Address [facility] [place] [address] Care Team Providers Care Mail Courier Name Role Phone Nini Machado MD Primary Care Provider [phone] Encounter Details Date Type Department Care Team (Late st Contact Info) Description 07/17/2021 Telephone Hematology [place] [address] Shankar Casey MD Social History Tobacco Use Types Packs/Day Years [...] encounter Miscellaneous Notes * Telephone Encounter - Shankar Casey MD - 07/17/2021 6:32 AM EST Reason for call: Rectal and suprapubic abdominal pain Caller: Pt HPI: Stefanie Pina is a 65 y.o. with newly diagnosed limited stage SCLC, currently on carboplatin/etoposide 07/06/21, who called for severe rectal and suprapubic pain that started 2 days ago. She describes the pain as a sharp, shooting 10/10 pain without radiation, that occurred acutely, intermittent,and lasts 10-15 minutes each time.The pain is excruciating and unrelenting that she is tearful and makes her jump causing her to be unable to sleep. Associated symptoms is bloatedness and passing a lot of gas. She is able to have soft BMs and does not note any rectal bleeding. No GI/ symptoms or fevers/chills. The only new medication she had taken was omeprazole. Review of records showed she had a colonoscopy 06/2021 which showed polyps and sigmoid diverticulosis but otherwise unremarkable. Most recent labs reviewed. Assessment/Recommendations: She is having excruciating rectal and suprapubic pain that is worsening over the last 2 days.The pain is excruciating and unrelenting causing her to be restless and jump. It is unclear the etiology of her pain but I believe she needs urgent abdominal imaging and evaluation. Considerations include side effect from chemo - concerns for constipation, developing obstruction, perforation, mucositis, or possibly late complication from the recent colonoscopy done on 06/27. She has not started radiation treatment yet. I instructed to call EMS and I informed [facility] ED of the patient's case. Shankar Casey MD Hematology/Oncology Fellow Pager # [phone] 07/17/21, 6:32 AM documented in this encounter Plan of Treatment Upcoming Encounters Date Type Department Care Team (Late st Contact Info) Description 08/30/2024 2:00 PM EST Office Visit Hematology/Oncology at [address] [phone] Mars Conley MD [facility] DR HEMATOLOGY [place] [address] Cailin Marrero FLUTE POLISHER [address] [place] [address] [place] [address] 09/07/2024 9:00 AM EST Office [place] [phone] Raven Alvarado MD [facility] DR [place] [address] 10/04/2024 1:15 PM EST Office [place] [phone] Feliciano Shay, [facility] DR [place] [address] documented as of this encounter Visit Diagnoses Not on filedocumented in this encounter Care Teams Mail Courier Relationship Specialty Start Date End Date Marco Antonio-Nini Landrum MD [address] [place] [address] PCP - General 06/26/10 documented as of this encounter
--- OUTSIDE RECORDS SUMMARY | 2024-08-27 00:49 | XMS_ITS | Encounter Summary ---
Author Organization [facility] Address [facility] [place] [address] Care Team Providers Care Fine Chemicals Operator Name Role Phone Nini Machado MD Primary Care Provider [phone] Encounter Details Date Type Department Care Team (Late st Contact Info) Description 07/09/2021 Telephone Hematology [place] [address] Lillie Sanchez, RN Social History Tobacco Use Types Packs/Day [...] encounter Miscellaneous Notes * Telephone Encounter - Lillie Sanchez RN - 07/09/2021 7:49 AM EST Chemotherapy Follow-up Call Placed call to patient to assess tolerance of first time chemotherapy treatment. Regimen received: Carbo/etoposide Date of treatment: 07/04/2021-07/06/2021 Assessment: Symptom Present (yes[y]/no[n]/ stable[s] from baseline) Additional information/Assessment GI Nausea Denies Vomiting Denies Nausea medication Has compazine but has not needed to take it Tolerating diet Yes Maintaining fluid intake (indicate volume) Yes Bowel movements regular Yes Diarrhea Denies Mouth sores Had a sore throat for 1 day after chemo but this resolved. General Pain (0 none - 10 high) Denies Using pain medications Fever Afebrile Neuro Level of fatigue (0 - 5) Falls Numbness/tingling in arms/legs Denies Cognitive changes Skin Skin changes Denies any rashes, itching or skin breakdown Pinpoint red dots Denies Other s/s of bleeding No unusual bruising or bleeding IV site/VAD problems Musculoskeletal Joint swelling or tenderness Denies Arthralgias or myalgias Denies Voiding problems Denies Color and quality of urine Cardio-pulmonary Shortness of breath No increased SOB or difficulty breathing Chest pain Denies Swelling in legs Denies Calf pain or tenderness Denies Cough (productive/non-productive) Denies Psychosocial Coping Need prescription renewals Other issues : Education provided: Plan: 1. Reinforced to patient/care-supervisor record press to call facility 24/02 with any new/worsening signs and symptomsor concerns or questions. Phone number provided. Pt verbalized understanding and is in agreement with plan. documented in this encounter Plan of Treatment Upcoming Encounters Date Type Department Care Team (Late st Contact Info) Description 08/30/2024 2:00 PM EST Office Visit Hematology/Oncology at [address] [phone] Mars Conley MD [facility] DR [place] [address] Cailin Marrero APRN [address] [place] [address] DR HEMATOLOGY [place] [address] 09/07/2024 9:00 AM EST Office Visit General Surgery at [place] [phone] Raven Alvarado MD [facility] [place] [address] 10/04/2024 1:15 PM EST Office Visit Neurology at [place] [phone] Feliciano Shay, [facility] [place] [address] documented as of this encounter Visit Diagnoses Not on filedocumented in this encounter Care Teams Fine Chemicals Operator Relationship Specialty Start Date End Date Marco Antonio-Nini Landrum MD [address] [place] [address] 3 [place] [address] PCP - General 06/26/10 documented as of this encounter
--- OUTSIDE RECORDS SUMMARY | 2024-08-27 00:49 | XMS_ITS | Encounter Summary ---
Author Organization [facility] Address [facility] [place] [address] Care Team Providers Care Sandwich And Drink Cart Operator Name Role Phone Nini Machado MD Primary Care Provider [phone] Encounter Details Date Type Department Care Team (Latest Contact Info) Description 07/24/2021 12:24 PM EST - 07/24/2021 1:35 PM EST Hospital En[place] [phone] Small cell carcinoma of lung Discharge Disposition: [...] PM EST Office Visit Hematology/Oncology at [address] [phone] Mars Conley MD [facility] DR [place] [address] Cailin Marrero APRN [address] [place] [address] DR HEMATOLOGY [place] [address] 09/07/2024 9:00 AM EST Office [place] [phone] Raven Alvarado MD [facility] [place] [address] 10/04/2024 1:15 PM EST Office [place] [phone] Feliciano Shay, [facility] [place] [address] Pending Results Name Type Priority Associated Diagnoses Date /Time Pulmonary Function Testing PFT Routine Small cell carcinoma of lung 07/24/2021 12:42 PM EST documented as of this encounter Procedures Procedure Name Priority Date/Time Associated Diagnosis Comments COMMON PULMONARY FUNCTION TEST Routine 07/24/2021 12:42 PM EST Small cell carcinoma of lung documented in this encounter Visit Diagnoses Diagnosis Small cell carcinoma of lung Malignant neoplasm of bronchus and lung, unspecified site documented in this encounter Care Teams Sandwich And Drink Cart Operator Relationship Specialty Start Date End Date Marco Antonio-Nini Landrum MD [address] [address] PCP - General 06/26/10 documented as of this encounter
--- OUTSIDE RECORDS SUMMARY | 2024-08-27 00:49 | XMS_ITS | Encounter Summary ---
Author Organization [facility] Address [facility] [place] [address] Care Team Providers Care Counselor Nurses' Association Name Role Phone Nini Machado MD Primary Care Provider [phone] Encounter Details Date Type Department Care Team (Late st Contact Info) Description 07/04/2021 9:45 AM EST Office Visit [place] [address] Juan Fitzpatrick MD [facility] [place] [address] Minna Rascon, BERNARDINO Small cell carcinoma of lung Social History [...] Sign Reading Time Taken Comments Blood Pressure 141/98 07/04/2021 9:45 AM EST Pulse 53 07/04/2021 9:45 AM EST Temperature 36.5 ??C (97.7 ??F) 07/04/2021 9:45 AM ES T Respiratory Rate 18 07/04/2021 9:45 AM EST Oxygen Saturation 96% 07/04/2021 9:45 AM EST Inhaled Oxygen Concentration - - Weight 58.1 kg (128 lb) 07/04/2021 9:45 AM EST Height 168 cm (5' 6.14) 07/04/2021 9:45 AM EST Body Mass Index 20.57 07/04/2021 9:45 AM EST documented in this encounter Progress Notes * Minna Rascon, DOUGH SCALER AND MIXER - 07/04/2021 9:45 AM EST PATIENT ID: Stefanie Pina is a 65 y.o. with newly diagnosed limited stage SCLC who presents today for chemotherapy teaching and is accompanied by her OTF. The plan is for Carboplatin/Etoposide for4 cycles. Radiation will be added with Cycle 2. The following information was reviewed with the patient and family. Antitumor Therapy Schedule: Carboplatin given on Day 1 of a 21 day cycle, infuses over 30 min Etoposide given on Days 1, 2 and 3 of a 21 day cycle, infuses over 2 hours Pre-medications to prevent nausea Laboratory Tests: Check blood counts, kidney and liver function, electrolytes prior to the start of each cycle Provider Visits: Day 1 of each cycle of chemotherapy (ie every 3 weeks). Possible Side Effects include, but are not limited to: Carboplatin: The most common side effects include decrease in blood counts (decrease in white bloodcells, red blood cells and platelets resulting in increased risk of infection, anemia and bleeding), nausea and vomiting, taste changes, decreased appetite, constipation (or less likely diarrhea), fatigue. Less common side effects include infusion reaction, mouth sores, kidney dysfunction, electrolyte abnormalities, ringing in the ears or hearing loss. Etoposide: The most common potential side effects include: Decrease in blood counts (decrease in white blood cells, red blood cells and platelets, resulting in increased risk of infection, anemia andbleeding), hair loss, taste changes, decreased appetite, nausea/vomiting, fatigue. Less common sideeffects include infusion reactions, diarrhea, mouth sores, dizziness/lightheadedness. Medications: the following prescriptions should be picked up before starting treatment ??? Compazine 10 mg oral every 6 hours as needed for nausea Plan: Stefanie Pina was given written information regarding chemotherapy regimen, side effects and management strategies. Pt was given an opportunity to ask questions and verbalized understanding of the information and treatment plan. No barriers to learning were identified. Pt was counseled on how to call for any further questions or concerns. ??? Chemotherapy is scheduled to begin today ??? Testing/Diagnostics o Baseline blood work was reviewed and is adequate for treatment o Chest CT following 4 cycles of treatment ??? Vaccinations- Completed 3 doses of COVID vaccination, completed annual influenza vaccine ??? Regional Production Manager- denies needs ??? Social work- followed by Janeen Krishnamurthy ??? Smoking cessation: Quit 03/11/21 ??? Advance Directives: On file ??? Follow up: Post-chemo call. Pt would like to transition to [facility] for future treatment. She also notes that she has considered daily vs BID radiation and would prefer BID. Time Attestation: I certify spending at least 50 minutes in providing care to this patient today 07/04/21 as reflected by the following activities: - review of the medical record in the chart - discussing of medical decision making - documenting the outcome of today's visit as above Addendum: Facial flushing, chest discomfort, SOB when approx 27 cc into etoposide. Pt given hypersensitivity medications. Sx resolved. Resumed infusion initially at 1/2 rate and then increased to full rate. Added benadryl and pepcid premedications for subsequent etoposide infusions. documented in this encounter Plan of Treatment Upcoming Encounters Date Type Department Care Team (Late st Contact Info) Description 08/30/2024 2:00 PM EST Office Visit Hematology/Oncology at [address] [phone] Mars Conley MD [facility] DR [place] [address] Cailin Marrero APRN [address] [place] [address] DR HEMATOLOGY [place] [address] 09/07/2024 9:00 AM EST Office Visit General Surgery at [place] [phone] Raven Alvarado MD [facility] [place] [address] 10/04/2024 1:15 PM EST Office Visit Neurology at [place] [phone] Feliciano Shay, [facility] [place] [address] documented as of this encounter Visit Diagnoses Diagnosis Small cell carcinoma of lung Malignant neoplasm of bronchus and lung, unspecified site documented in this encounter Care Teams Counselor Nurses' Association Relationship Specialty Start Date End Date Marco Antonio-Nini Landrum MD [address] [place] [address] [address] [place] [address] PCP - General 06/26/10 documented as of this encounter
--- OUTSIDE RECORDS SUMMARY | 2024-08-27 00:49 | XMS_ITS | Encounter Summary ---
Author Organization [facility] [place] [address] Care Team Providers Care Blasting Helper Name Role Phone Nini Machado MD Primary Care Provider [phone] Encounter Details Date Type Department Care Team (Late st Contact Info) Description 07/17/2021 Telephone [place] [phone] Mae Bojorquez, RN Social History Tobacco Use [...] Telephone Encounter - Mae Bojorquez RN - 07/17/2021 5:24 PM EST Spoke to a family member and was informed that patient is currently admitted to an osh. Because shewas having some pain and was advised to go to the hospital. He states her pain is unrelated to her taking the omeprazole. ----- Message from Stefanie Pina sent at 07/16/2021 11:27 AM EST ----- Regarding: side effects of omeprozole I took my first omeprazole yesterday morning. Last night I experienced low stomach pain that shootsback towards my butt - painful enough to make me jump. no nausea, no vomiting and no loose bowels, no gas. sometimes when i have the pain i feel like I need to have a bowel movement and have a small (normal) bowel movement. Should I continue with this med? documented in this encounter Plan of Treatment Upcoming Encounters Date Type Department Care Team (Late st Contact Info) Description 08/30/2024 2:00 PM EST Office Visit Hematology/Oncology at [address] [phone] Mars Conley MD [facility] DR HEMATOLOGY AND ONCOLOGY [place], [place] [phone] Cailin Marrero, CLASSIFIED ADVERTISING SUPERVISOR [address] [place] [address] DR [place]ATOLOGY [place] [address] 09/07/2024 9:00 AM EST Office Visit [place] [phone] Raven Alvarado MD [facility] [place] [address] 10/04/2024 1:15 PM EST Office [place] [phone] Feliciano Shay, [facility] [place] [address] documented as of this encounter Visit Diagnoses Not on filedocumented in this encounter Care Teams Blasting Helper Relationship Specialty Start Date End Date Marco Antonio-Nini Landrum MD [address] [place] [address] PCP - General 06/26/10 documented as of this encounter
--- OUTSIDE RECORDS SUMMARY | 2024-08-27 00:49 | XMS_ITS | Encounter Summary ---
Author Organization [facility] [place] [address] Care Team Providers Care Licensed Practical Nurse Name Role Phone Nini Machado MD Primary Care Provider [phone] Encounter Details Date Type Department Care Team (Latest Contact Info) Description 07/04/2021 8:34 AM EST Hospital Encounter [place] [phone] Small cell carcinoma of lung Discharge Disposition: [...] PM EST Office Visit Hematology/Oncology at [address] [phone] Mars Conley MD [facility] DR [place] [address] Cailin Marrero APRN [address] [place] [address] [place] [address] 09/07/2024 9:00 AM EST Office [place] [phone] Raven Alvarado MD [facility] [place] [address] 10/04/2024 1:15 PM EST [place] [phone] Feliciano Shay, [facility] [place] [address] documented as of this encounter Procedures Procedure Name Priority Date/Time Associated Diagnosis Comments HEMOGRAM STAT 07/04/2021 8:53 AM EST Small cell carcinoma of lung DIFFERENTIAL, AUTOMATED STAT 07/04/2021 8:53 AM EST Small cell carcinoma of lung HC CBC,PLT & AUTO DIFF STAT 8:53 AM EST Small cell carcinoma of lung HC LACTIC DEHYDROGENASE STAT 07/04/2021 8:53 AM EST Small cell carcinoma of lung COMPREHENSIVE METABOLIC PANEL STAT 07/04/2021 8:53 AM EST Small cell carcinoma of lung documented in this encounter Results * Differential, Automated (07/04/2021 8:53 AM EST) Neutrophil % 63.1 % [facility] Neutrophil Absolute 4.51 1.70 - 6.10 x10(3)/[facility] Lymph % 27.6 % [facility] Lymphocytes Abs 2.0 0.9 - 3.2 x10(3)/[facility] Monocyte % 6.9 % [facility] Monocyte Abs 0.5 0.3 - 0.9 x10(3)/[facility] Eos % 1.1 % [facility] Eosinophils Abs 0.1 0.0 - 0.4 x10(3)/[facility] Basophil % 1.0 % [facility] Baso Absolute 0.1 0.0 - 0.1 x10(3)/[facility] Immature Gran % 0.30 % [facility] Comment: Immature granulocytes(IG's)percentage and absolute count will include metamyelocytes, myelocytes, and promyelocytes. Blood smears from CBCs yielding IG's will be scanned manually for concordance. If this scan disagrees with the automated IG or if promyelocytes are noted, a manual differential will be performed. Immature Gran Absolute 0.02 0.00 - 0.04 x10(3)/[facility] Blood 07/04/2021 8:53 AM EST 07/04/2021 9:00 AM EST Narrative Resulting Agency Comment Spec In Lab Juan Fitzpatrick MD HEMATOLOGY ORDER YOANA [facility] [place] [address] * (ABNORMAL) Hemogram (07/04/2021 8:53 AM EST) White Blood Cell 7.1 4.0 - 9.5 x10(3)/[facility] Red Blood Cell 4.12 4.00 - 5.21 x10(6)/[facility] Hemoglobin 12.4 11.7 - 15.5 g/dL [facility] Hematocrit 39.5 35.7 - 45.8 % [facility] Mean Cell Volume 95.9(H) 82.6 - 94.4 fL [facility] Mean Cell Hemoglobin 30.1 27.1 - 32.0 pg [facility] Mean Cell Hemoglobin Concentration 31.4(L) 31.7 - 35.0 g/dL [facility] Platelet 227 145 - 357 x10(3)/[facility] RDW Standard Deviation 45.7 37.0 - 46.0 [facility] RDW coefficient of variation 12.9 11.5 - 14.1 % [facility] Mean Platelet Volume 10.5 7.6 - 12.9 [facility] NRBC% auto 0.0 % [facility] NRBC Absolute 0.000 0.000 - 0.000 x10(3)/[facility] Blood 07/04/2021 8:53 AM EST 07/04/2021 9:00 AM EST Narrative Resulting Agency Comment Spec In Lab Juan Fitzpatrick MD HEMATOLOGY ORDER YOANA [facility] [place] [address] * Lactate Dehydrogenase (07/04/2021 8:53 AM EST) Lactate Dehydrogenase 175 110 - 220 unit/L [facility] Blood 07/04/2021 8:53 AM EST 07/04/2021 9:00 AM EST Narrative Resulting Agency Comment Spec In Lab Juan Fitzpatrick MD CHEMISTRY ORDERA BLES [facility] [place] [address] * Comprehensive metabolic panel (non-fasting) (07/04/2021 8:53 AM EST) Glucose 96 65 - 199 mg/dL [facility] Comment:Diabetes: >=200 mg/d L plus symptoms Blood Urea Nitrogen 16 8 - 18 mg/dL [facility] Creatinine 0.91 0.70 - 1.20 mg/dL [facility] Sodium 144 135 - 145 mmol/L [facility] Potassium 4.4 3.5 - 5.0 mmol/L [facility] Comment: Please note: ??Patients with WBC >100,000 may have falsely elevated Potassium levels. ??For accurate Potassium quantification in these patients send serum separator tube (gold top) for subsequent determinations. ??Contact the Clinical Chemistry Laboratory if there are any questions. Chloride 107 98 - 107 mmol/L [facility] Carbon Dioxide 26 22 - 31 mmol/L [facility] Anion Gap 11 5 - 15 mmol/L [facility] Calcium 9.7 8.5 - 10.5 mg/dL [facility] Protein, Total 7.1 6.1 - 8.0 g/dL [facility] Albumin 4.4 3.2 - 5.2 g/dL [facility] Aspartate Aminotransferase 13 0 - 30 unit/L [facility] Alanine Aminotransferase 10 0 - 30 unit/L [facility] Alkaline Phosphatase 63 35 - 105 unit/L [facility] Bilirubin, Total 0.2 0.2 - 1.3 mg/dL [facility] Est Glomerular Filtration Rate 66 >=60 mL/min/1. 73 m?? [facility] Comment: This patient? s estimated [...] In Lab Juan Fitzpatrick MD CHEMISTRY ORDERA [facility] Organization Address City/State/ZIP Co de Phone Number [facility] [place] [address] documented in this encounter Visit Diagnoses Diagnosis Small cell carcinoma of lung Malignant neoplasm of bronchus and lung, unspecified site documented in this encounter Care Teams Licensed Practical Nurse Relationship Specialty Start Date End Date Marco Antonio-Nini Landrum MD [address] [address] PCP - General 06/26/10 documented as of this encounter
--- OUTSIDE RECORDS SUMMARY | 2024-08-27 00:49 | XMS_ITS | Encounter Summary ---
Author Organization [facility] [place] [address] Care Team Providers Care Director Of Product Design Name Role Phone Nini Machado MD Primary Care Provider [phone] Reason for Visit * Treatment/Therapy Plan Authorization (Routine) - Closed Specialty Diagnoses / Procedures Referred By Aldo sotelo Referred To Contact Diagnoses Small cell carcinoma of lung Juan Fitzpatrick MD [facility] [place] [address] Referral ID Status Reason Start Date Expiration Date Visits Re quested Visits Authorized [id number] Closed 06/21/2021 06/21/2022 99 99 Encounter Details Date Type Department Care Team (Latest Contact Info) Description 07/06/2021 2:09 PM EST - 07/06/2021 11:59 PM [facility] Hospital Encounter [place]ematology [place] [address] Small cell carcinoma of lung Discharge Disposition: [...] Sign Reading Time Taken Comments Blood Pressure 126/60 07/06/2021 2:51 PM EST Pulse 55 07/06/2021 2:51 PM EST Temperature 37.1 ??C (98.7 ??F) 07/06/2021 2:51 PM ES T Respiratory Rate 13 07/06/2021 2:51 PM EST Oxygen Saturation 98% 07/06/2021 2:51 PM EST Inhaled Oxygen Concentration - - Weight - - Height - - Body Mass Index - - documented in this encounter Discharge Instructions * Patient Instructions* Lauren Sanderson RN - 07/06/2021 5:44 PM EST For any issues over the weekend or in the evenings call [phone] and ask for the hem/onc fellowon call. documented in this encounter Medications at Time [...] of this encounter Progress Notes * Lauren Sanderson, RN - 07/06/2021 5:50 PM EST Patient Name: Stefanie Pina Patient Age: 65 y.o. Birthdate: 1955 Admit date: 07/06/2021 Attending Physician: No att. providers found Hand-off taken from Marilyn Hernandez RN at 17:00 and assumed care. Stefanie finished her infusion without incident. She was provided with information on who and when to call after-hours. * Marilyn Dallas RN - 07/06/2021 4:09 PM EST Patient Name: Stefanie Pina Patient Age: 65 y.o. Birthdate: 1955 Admit date: 07/06/2021 Attending Physician: No att. providers found Stefanie Pina, 65 y.o. female with diagnosis of lung cancer is here for chemotherapy infusion ofetoposide. PROTOCOL: n/a CYCLE: 1 DAY: 3 Hand off report given to Lai Sanderson RN @ 1700 S: Pt. C/o of feeling flushed and night sweats at home - afebrile. VSS in clinic. Message sent to Jordi Rascon x2. Reviewed plan of care for infusion visit, patient verbalized understanding of plan as outlined. O: Chemotherapy orders independently verified for correct drug name, route and dosage per patient'sheight, weight and BSA by Marilyn Dallas RN, RN and onsite pharmacist. Chemotherapy administered per protocol. REACTIONS (DESCRIPTION, TIME, INTERVENTION AND EFFECTIVENESS) none A: Pt. Tolerated treatment with out issue. Stefanie Pina confirms that all questions and issues have been addressed. P: Return to clinic as scheduled. documented in this encounter Plan of Treatment Upcoming Encounters Date Type Department Care Team (Late st Contact Info) Description 08/30/2024 2:00 PM EST Office Visit Hematology/Oncology at [address] [phone] Mars Conley MD [facility] DR [place] [address] Cailin Marrero STOCKROOM SELECTOR [address] [place] [address] DR [place] [address] 09/07/2024 9:00 AM EST Office [place] [phone] Raven Alvarado MD [facility] [place] [address] 10/04/2024 1:15 PM EST Office [place] [phone] Feliciano Shay, [facility] [place] [address] documented as of this encounter Visit Diagnoses Diagnosis Small cell carcinoma of lung Malignant neoplasm of bronchus and lung, unspecified site documented in this encounter Administered Medications Inactive Administered Medications - up to 3 most recent administrations Medication Order MAR Action Action Date Dose Rate Site dexamethasone (PF) (Decadron) (10 mg/mL) injection 10 mg 10 mg, Intravenous, ONCE, 1 dose, On Fri07/06/21 at 1430, Administer prior to chemotherapy Given 07/06/2021 3:07 PM EST 10 mg diphenhydrAMINE (Benadryl) (50 mg/mL) injection 25 mg 25 mg, Intravenous, ONCE, 1 dose, On Fri07/06/21 at 1430, Routine Given 07/06/2021 3:07 PM EST 25 mg etoposide (Vepesid) 165 mg in sodium chloride 0.9% Non-PVC 508.25 mL infusion 165 mg (100 mg/m2/dose ? 1.65 m2 Treatment Plan BSA from Recorded weight), Intravenous, ONCE, 1 dose, On Fri07/06/21 at 1530, Administer over 90 Minutes, Warning Vesicant/Irritant Medication New Bag 07/06/2021 3:59 PM EST 165 mg 338.8 mL/hr famotidine (Pepcid) (10 mg/mL) injection 20 mg 20 mg, Intravenous, ONCE, 1 dose, On Fri07/06/21 at 1430 Given 07/06/2021 3:07 PM EST 20 mg documented in this encounter Care Teams Director Of Product Design Relationship Specialty Start Date End Date Marco Antonio-Nini Landrum MD [address] [place] [address] PCP - General 06/26/10 documented as of this encounter
--- OUTSIDE RECORDS SUMMARY | 2024-08-27 00:49 | XMS_ITS | Encounter Summary ---
[place] [address] Care Team Providers Care Blood Or Blood Bank Technician Name Role Phone Nini Machado MD Primary Care Provider [phone] Encounter Details Date Type Department Care Team (Latest Contact Info) Description 07/24/2021 12:05 PM EST Laboratory Appointment Lab [address]L [place] [phone] Small cell carcinoma of lung; Medication management [...] PM EST Office Visit Hematology/Oncology at [address] [address] Mars Conley MD [facility] DR HEMATOLOGY [place] [address] Cailin Marrero APRN [address] [place] [address] DR HEMATOLOGY [place] [address] 09/07/2024 9:00 AM EST Office [place] [phone] Raven Alvarado MD [facility] [place] [address] 10/04/2024 1:15 PM EST Office [place] [phone] Feliciano Shay, [facility] [place] [address] documented as of this encounter Procedures Procedure Name Priority Date/Time Associated Diagnosis Comments HEMOGRAM STAT 07/24/2021 12:13 PM EST Small cell carcinoma of lung DIFFERENTIAL, AUTOMATED STAT 07/24/2021 12:13 PM EST Small cell carcinoma of lung HC HEPATITIS C ANTIBODY STAT 07/24/2021 12:13 PM EST Small cell carcinoma of lung HC HEPATITIS B SURFACE AG STAT 07/24/2021 12:13 PM EST Small cell carcinoma of lung HC CBC,PLT & AUTO DIFF STAT 12:13 PM EST Small cell carcinoma of lung HC THYROID STIMULATING HORMONE, SERUM Routine 07/24/2021 12:13 PM EST Small cell carcinoma of lung Medication management HC FREE THYROXINE (T4) Routine 12:13 PM EST Small cell carcinoma of lung Medication management HC MAGNESIUM, SERUM STAT 07/24/2021 1 2:13 PM EST Small cell carcinoma of lung COMPREHENSIVE METABOLIC PANEL STAT 07/24/2021 12:13 PM EST Small cell carcinoma of lung documented in this encounter Results * (ABNORMAL) Differential, Automated (07/24/2021 12:13 PM EST) Neutrophil % 63.5 % [facility] Neutrophil Absolute 4.84 1.70 - 6.10 x10(3)/mc L [facility] Lymph % 22.5 % [facility] Lymphocytes Abs 1.7 0.9 - 3.2 x10(3)/mc L [facility] Monocyte % 8.9 % [facility] Monocyte Abs 0.7 0.3 - 0.9 x10(3)/mc L [facility] Eos % 0.5 % [facility] Eosinophils Abs 0.0 0.0 - 0.4 x10(3)/mc L [facility] Basophil % 0.4 % [facility] Baso Absolute 0.0 0.0 - 0.1 x10(3)/ L [facility] Immature Gran % 4.20 % [facility] Comment: Immature granulocytes(IG's)percentage and absolute count will include metamyelocytes, myelocytes, and promyelocytes. Blood smears from CBCs yielding IG's will be scanned manually for concordance. If this scan disagrees with the automated IG or if promyelocytes are noted, a manual differential will be performed. Immature Gran Absolute 0.32(H) 0.00 - 0.04 x10(3)/ L [facility] Blood 07/24/2021 12:1 3 PM EST 07/24/2021 12:19 PM EST Narrative Resulting Agency Comment Spec In Lab Mars Conley MD HEMATOLOGY ORDERABLE S [facility] [place] [place] [address] * (ABNORMAL) Hemogram (07/24/2021 12:13 PM EST) White Blood Cell 7.6 4.0 - 9.5 x10(3)/[facility] Red Blood Cell 3.55(L) 4.00 - 5.21 x10(6)/ L [facility] Hemoglobin 10.7(L) 11.7 - 15.5 g/dL [facility] Hematocrit 34.0(L) 35.7 - 45.8 % [facility] Mean Cell Volume 95.8(H) 82.6 - 94.4 fL [facility] Mean Cell Hemoglobin 30.1 27.1 - 32.0 pg [facility] Mean Cell Hemoglobin Concentration 31.5(L) 31.7 - 35.0 g/dL [facility] Platelet 435(H) 145 - 357 x10(3)/[facility] RDW Standard Deviation 43.9 37.0 - 46.0 fL [facility] RDW coefficient of variation 12.8 11.5 - 14.1 % [facility] Mean Platelet Volume 9.2 7.6 - 12.9 [facility] NRBC% auto 0.0 % [facility] NRBC Absolute 0.000 0.000 - 0.000 x10(3)/mc L [facility] Blood 07/24/2021 12:1 3 PM EST 07/24/2021 12:19 PM EST Narrative Resulting Agency Comment Spec In Lab Mars Conley MD HEMATOLOGY ORDERABLE S Performing Organization Address City/[facility]/ZIP Co de Phone Number [facility] [place] [address] * Hepatitis B Surface Antigen (07/24/2021 12:13 PM EST) Hepatitis B Surface Antigen Negative Negative [facility] Blood 07/24/2021 12:1 3 PM EST 07/24/2021 12:19 PM EST Narrative Resulting Agency Comment Spec In Lab Juan Fitzpatrick MD CHEMISTRY ORDERA BLES Performing Organization Address City/[facility]/ZIP Co de Phone Number [facility] [place] [address] * Hepatitis C Antibody (07/24/2021 12:13 PM EST) Hepatitis C Antibody Negative Negative [facility] Blood 07/24/2021 12:1 3 PM EST 07/24/2021 12:19 PM EST Narrative Resulting Agency Comment Spec In Lab Juan Fitzpatrick MD CHEMISTRY ORDERA BLES Performing Organization Address City/[facility]/ZIP Co de Phone Number [facility] [place] [address] * TSH (07/24/2021 12:13 PM EST) Thyroid Stimulating Hormone 1.08 0.27 - 4.20 mcIU/mL [facility] Comment: Reference Interval (mcIU/mL): Females: ??First Trimester: 0.23-3.88 ??Second Trimester: 0.22-3.90 ??Third Trimester: 0.44-4.66 Blood 07/24/2021 12:1 3 PM EST 07/24/2021 12:19 PM EST Narrative Resulting Agency Comment Spec In Lab Mars Conley MD CHEMISTRY ORDERABLES Performing Organization Address [facility] Co de Phone Number [facility] [address] * T4, free (07/24/2021 12:13 PM EST) Free T4 1.19 0.93 - 1.70 ng/dL [facility] Comment: Reference Interval (ng/dL): Females: ??First Trimester: 0.97-1.68 ??Second Trimester: 0.77-1.51 ??Third Trimester: 0.77-1.49 Blood 07/24/2021 12:1 3 PM EST 07/24/2021 12:19 PM EST Narrative Resulting Agency Comment Spec In Lab Mars Conley MD CHEMISTRY ORDERABLES Performing Organization Address [facility] Co de Phone Number [facility] [place] [address] * Magnesium (07/24/2021 12:13 PM EST) Magnesium 0.88 0.69 - 1.07 mmol/L [facility] Blood 07/24/2021 12:1 3 PM EST 07/24/2021 12:19 PM EST Narrative Resulting Agency Comment Spec In Lab Mars Conley MD CHEMISTRY ORDERABLES Performing Organization Address City/[facility]/ZIP Co de Phone Number [facility] [address] * (ABNORMAL) Comprehensive metabolic panel (non-fasting) (07/24/2021 12:13 PM EST) Glucose 93 65 - 199 mg/dL [facility] Comment:Diabetes: >=200 mg/d L plus symptoms Blood Urea Nitrogen 12 8 - 18 mg/dL [facility] Creatinine 1.04 0.70 - 1.20 mg/dL [facility] Sodium 140 135 - 145 mmol/L [facility] Potassium 4.3 3.5 - 5.0 mmol/L [facility] Comment: Please note: ??Patients with WBC >100,000 may have falsely elevated Potassium levels. ??For accurate Potassium quantification in these patients send serum separator tube (gold top) for subsequent determinations. ??Contact the Clinical Chemistry Laboratory if there are any questions. Chloride 101 98 - 107 mmol/L [facility] Carbon Dioxide 29 22 - 31 mmol/L [facility] Anion Gap 10 5 - 15 mmol/L [facility] Calcium 9.1 8.5 - 10.5 mg/dL [facility] Protein, Total 7.0 6.1 - 8.0 g/dL [facility] Albumin 4.1 3.2 - 5.2 g/dL [facility] Aspartate Aminotransferase 21 0 - 30 unit/L [facility] Alanine Aminotransferase 18 0 - 30 unit/L [facility] Alkaline Phosphatase 57 35 - 105 unit/L [facility] Bilirubin, Total <0.2(L) 0.2 - 1.3 mg/dL [facility] Est Glomerular Filtration Rate 56(L) >=60 mL/min/1. 73 m?? [facility] Comment: This patient? s estimated [...] In Lab Mars Conley MD CHEMISTRY ORDERABLES [facility] [address] documented in this encounter Visit Diagnoses Diagnosis Small cell carcinoma of lung Malignant neoplasm of bronchus and lung, unspecified site Medication management Encounter for long-term (current) use of other medications documented in this encounter Care Teams Blood Or Blood Bank Technician Relationship Specialty Start Date End Date Nini Machado MD [address] [address] PCP - General 06/26/10 documented as of this encounter
--- OUTSIDE RECORDS SUMMARY | 2024-08-27 00:49 | XMS_ITS | Encounter Summary ---
Author Organization [facility] Address [facility] [place] [address] Care Team Providers Care Pepper Picker Name Role Phone Nini Machado MD Primary Care Provider [phone] Encounter Details Date Type Department Care Team (Late st Contact Info) Description 07/02/2021 Notes Only [place] [phone] Janeen Krishnamurthy, BID ANALYST Social History Tobacco Use Types Packs/Day Years [...] of this encounter Progress Notes * Janeen Krishnamurthy, BID ANALYST - 07/02/2021 11:51 AM EST Continuing Furniture Installer-Social Work Note [facility]/Office of Care Management Referral/Contact: Stefanie is a 65yo woman with new diagnosis of small cell lung cancer who was seen today by Dr. Muller for new patient visit. Stefanie was referred to SW by Mae Bojorquez RN, for assistance with transportation and Advance Directives. Met today with Stefanie following her appointment with Dr. Muller, at which time the role of SW was introduced and the following discussed. Relevant Information: Living Situation: Stefanie resides in her own home in [place], [place], which she owns. She has a mortgage. Her ex-, Jae Pina, resides with her. She describes this as an amicable arrangement. He contributes toward the household through maintenance of the home and yard. Employment/Finances: Stefanie is disabled and receives [facility] income. In addition to [employer], this is her only source of income. She states that it is sufficient to manage her expenses, and she deniesconcerns about paying her bills or food security. She is concerned about the cost of travel for hermedical appointments, noting that she lives about 50 minutes from [facility]. Supports: Stefanie states that she has good support from her ex-, Jae, who resides with her. She also has a [id number], María; a niece, Monse (an RN who lives in [place]); and a nephew, Todd, who works in the [employer] [facility] in the specialty pharmacy. Coping: Stefanie presented with restricted affect but did acknowledge that her new cancer diagnosis has been hard to accept. Of note, she scored a 10/10 on the Distress Screening tool on 06/20 and endorsed worry, sadness, nervousness, fears, depression, and loss of interest in usual activities. 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 We discussed limited availability of gas cards through [facility] as well asthe mileage reimbursement program through her insurance company, [employer] (formerly [employer]). She would appreciate gas cards but is apprehensive about utilizing the mileage reimbursement program, as she has had a previous experience where she was presented with a service through [employer] (dental coverage) as a benefit but it ended up costing her money unexpectedly. We discussed that the mileagereimbursement program could be revisited at any time and that [facility] could assist her with accessing inthe future, should she wish. Discussed [facility] as a local lodging option for Stefanie, as she will typically be coming for treatments three days in a row, and as part of a study she is enrolling in, she may be receiving radiation two times per day, 6 hours apart. Literacy: Stefanie notes that she cannot read or write well and needs assistance with written materials. Advance Care Planning: We completed an Advance Directive together today. Steafnie has designated her ex-, Jae Pina, as her healthcare proxy. A copy will be sent to Medical Records for scanning into Stefanie's EMR. Intervention(s): Brief assessment Advance care planning Transportation resources Lodging Plan: FLORENCIA will meet with Stefanie in Infusion on 07/05 to provide gas card and [facility] brochure. BETSY Becerra, [facility] Pager: [phone] documented in this encounter Plan of Treatment Upcoming Encounters Date Type Department Care Team (Late st Contact Info) Description 08/30/2024 2:00 PM EST Office Visit Hematology/Oncology at [address] [address] Mars Conley MD [facility] DR [place] [address] Cailin Marrero, [address] [place]AT[place]Y [place] [address] 09/07/2024 9:00 AM EST Office [place] [phone] Raven Alvarado MD [facility] [place] [address] 10/04/2024 1:15 PM EST [place] [phone] Feliciano Shay, [facility] [place] [address] documented as of this encounter Visit Diagnoses Not on filedocumented in this encounter Care Teams Pepper Picker Relationship Specialty Start Date End Date Marco Antonio-Nini Landrum MD [address] [address] PCP - General 06/26/10 documented as of this encounter
--- OUTSIDE RECORDS SUMMARY | 2024-08-27 00:49 | XMS_ITS | Encounter Summary ---
Author Organization [facility] Address [facility] [place] [address] Care Team Providers Care Special Education Tutor Name Role Phone Nini Machado MD Primary Care Provider [phone] Encounter Details Date Type Department Care Team (Late st Contact Info) Description 06/21/2021 Telephone [place] [phone] María Rai Social History Tobacco Use Types Packs/Day Years [...] encounter Miscellaneous Notes * Telephone Encounter - María Rai - 06/21/2021 9:14 AM EST Stefanie Pina [id number] Diagnosis/Indication: 1. Have you ever had a/an Colonoscopy before? Unknown If yes, did you have any problems with the procedure? No What type of sedation was used: General Anesthesia 2. Do you take any blood thinners or have you been diagnosed with a bleeding disorder that increases your risk of bleeding with procedures? No 3. Do you have a Pacemaker or Defibrillator device? No 4. Are you a diabetic? No 5. Do you have any Allergies to Eggs, Latex or Medications? Yes: see edh 6. Do you take any Oral Iron Supplements (Including multi-vitamins)? No 7. Do you have a history of three or more abdominal surgeries? No 8. Have you had a problem with sedation or anesthesia? No 9. Do you use a c-pap machine or oxygen tank? Neither 10. Do you take prescription narcotic pain medications, including suboxone or methodone? Yes morphine 11. Do you have a preference regarding the gender of your provider? No Preference 12. Is there any other information you would like to us to note for the provider and nursing team who will perform your case? Yes: dehydrated after the procedure 13. Say to patient: You must have a responsible democrat who will drive you to your procedure, stay oncampus for the entire duration of your procedure, and drive you home from your procedure? *Please Verify the height and weight, and adjust if height and/or weight have changed* Estimated body mass index is 20.63 kg/m?? as calculated from the following: Height as of 06/20/21: 167.9 cm (5' 6.1). Weight as of 06/20/21: 58.2 kg (128 lb 3.2 oz). Age:65 y.o. documented in this encounter Plan of Treatment Upcoming Encounters Date Type Department Care Team (Late st Contact Info) Description 08/30/2024 2:00 PM EST Office Visit Hematology/Oncology at [address] [address] Mars Conley MD [facility] DR [place] [address] Cailin Marrero APRN [address] [place] [address] DR [place]EM[place]Y [place] [address] 09/07/2024 9:00 AM EST Office Visit [place] [phone] Raven Alvarado MD [facility] [place] [address] 10/04/2024 1:15 PM EST Office [place] [phone] Feliciano Shay, [facility] [place] [address] documented as of this encounter Visit Diagnoses Not on filedocumented in this encounter Care Teams Special Education Tutor Relationship Specialty Start Date End Date Marco Antonio-Nini Landrum MD [address] [address] PCP - General 06/26/10 documented as of this encounter
--- OUTSIDE RECORDS SUMMARY | 2024-08-27 00:49 | XMS_ITS | Encounter Summary ---
Author Organization [facility] Address [facility] [place] [address] Care Team Providers Care Reliability Manager Name Role Phone Nini Machado MD Primary Care Provider [phone] Encounter Details Date Type Department Care Team (Late st Contact Info) Description 06/21/2021 Orders Only Hematology [place] [address] Juan Fitzpatrick MD [facility] [place] [address] Small cell carcinoma of lung (Primary Dx) [...] 2:00 PM EST Office Visit Hematology/Oncology at [address] [phone] Mars Conley MD [facility] DR [place] [address] Cailin Marrero APRN [address] [place] [address] [place] [address] 09/07/2024 9:00 AM EST Office Visit [place] [phone] Raven Alvarado MD [facility] [place] [address] 10/04/2024 1:15 PM EST Office [place] [phone] Feliciano Shay, [facility] [place] [address] documented as of this encounter Visit Diagnoses Diagnosis Small cell carcinoma of lung- Primary Malignant neoplasm of bronchus and lung, unspecified site documented in this encounter Care Teams Reliability Manager Relationship Specialty Start Date End Date Marco Antonio-Nini Landrum MD [address] [address] PCP - General 06/26/10 documented as of this encounter
--- OUTSIDE RECORDS SUMMARY | 2024-08-27 00:49 | XMS_ITS | Encounter Summary ---
Author Organization [facility] Address [facility] [place] [address] Care Team Providers Care Family Coach Name Role Phone Nini Machado MD Primary Care Provider [phone] Encounter Details Date Type Department Care Team (Late st Contact Info) Description 07/12/2021 Orders [place] [address] Senthil Muller MD [facility] [place] [address] Social History Tobacco Use Types Packs/Day Years [...] PM EST Office Visit Hematology/Oncology at [address] [address] Mars Conley MD [facility] DR HEMATOLOGY [place] [address] Cailin Marrero APRN [address] [place] [address] [place] [address] 09/07/2024 9:00 AM EST Office [place] [phone] Raven Alvarado MD [facility] [place] [address] 10/04/2024 1:15 PM EST [place] [address] Feliciano Shay, [facility] [place] [address] documented as of this encounter Visit Diagnoses Not on filedocumented in this encounter Care Teams Family Coach Relationship Specialty Start Date End Date Marco Antonio-Nini Landrum MD [address] [address] PCP - General 06/26/10 documented as of this encounter
--- OUTSIDE RECORDS SUMMARY | 2024-08-27 00:49 | XMS_ITS | Encounter Summary ---
Author Organization [facility] Address [facility] [place] [address] Care Team Providers Care Railroad Engineer Name Role Phone Nini Machado MD Primary Care Provider [phone] Encounter Details Date Type Department Care Team (Late st Contact Info) Description 07/12/2021 11:00 AM EST Ancillary Procedure [place] [address] Senthil Muller MD [facility] [place] [address] Social History Tobacco Use Types Packs/Day Years [...] PM EST Office Visit Hematology/Oncology at [address] [phone] Mars Conley MD [facility] [place] [address] Cailin Marrero [address] HEMATOLOGY AND ONCOLOGY [place], [place] [address] 09/07/2024 9:00 AM EST Office [place] [phone] Raven Alvarado MD [facility] [place] [place] [address] 10/04/2024 1:15 PM EST Office [place] [phone] Feliciano Shay, [facility] [place] [place] [address] Pending Results Name Type Priority Associated Diagnoses Date /Time Film Library Radiation Oncology Studies Imaging Storage Only Routine 07/12/2021 11:42 AM EST documented as of this encounter Visit Diagnoses Not on filedocumented in this encounter Administered Medications Inactive Administered Medications - up to 3 most recent administrations Medication Order MAR Action Action Date Dose Rate Site iohexoL (Omnipaque) (300 mg/mL) solution 100 mL 100 mL, Intravenous, ONCE PRN, 1 dose, Starting on Parisa 07/12/21 at 0748, Until Parisa 07/12/21 at 1121, Per Protocol, CT SIMULATION, Warning Vesicant/Irritant Medication , Routine Given 07/12/2021 11:21 AM EST 100 mLs Right Arm documented in this encounter Care Teams Railroad Engineer Relationship Specialty Start Date End Date Nini Machado MD [address] [address] PCP - General 06/26/10 documented as of this encounter
--- OUTSIDE RECORDS SUMMARY | 2024-08-27 00:49 | XMS_ITS | Encounter Summary ---
Author Organization [place] [address] Care Team Providers Care Furniture Salesperson Name Role Phone Nini Machado MD Primary Care Provider [phone] Encounter Details Date Type Department Care Team (Late st Contact Info) Description 07/17/2021 Telephone [place] [phone] Mae Bojorquez, RN Social History Tobacco Use [...] Encounter - Mae Bojorquez RN - 07/17/2021 10:49 AM EST Unable to leave message. Unidentifiable phone number. ---- Message from Stefanie Pina sent at 07/16/2021 [...] PM EST Office Visit Hematology/Oncology at [address] [phone] Mars Conley MD [facility] DR [place] [address] Cailin Marrero APRN [address] [place] [address] DR HEMATOLOGY [place] [address] 09/07/2024 9:00 AM EST Office [place] [phone] Raven Alvarado MD [facility] [place] [address] 10/04/2024 1:15 PM EST Office [place] [phone] Feliciano Shay, [facility] [place] [address] documented as of this encounter Visit Diagnoses Not on filedocumented in this encounter Care Teams Furniture Salesperson Relationship Specialty Start Date End Date Nini Machado MD [address] [facility] [address] [place], [place] [id number] PCP - General 06/26/10 documented as of this encounter
--- OUTSIDE RECORDS SUMMARY | 2024-08-27 00:50 | XMS_ITS | Encounter Summary ---
Author Organization [facility] Address [facility] [place] [address] Care Team Providers Care Army Ranger Name Role Phone Nini Machado MD Primary Care Provider [phone] Encounter Details Date Type Department Care Team (Late st Contact Info) Description 06/14/2021 11:55 AM EST Anesthesia Event [place] [address] Jessica Betancourt MD [facility] DR [place] [address] Anesthesia Record Procedure Summary Procedure Name Responsible Anesthesiologist Anesthesia Start Time Anesthesia Stop Time BRONCH, W ENDOBRONCHIAL ULTRASOUND (EBUS) GUIDED SAMPLING, 1/2 NODES (WRVU 4.46) Jessica Betancourt MD 06/14/21 1155 06/14/21 1305 Events Date Time Event Comment 06/14/2021 1100 1155 AN Verify 1155 Start 1155 An Start Data 1201 An Induction 1206 An Intubation 1209 Anesthesia Ready 1305 Extubation/LMA Out 1305 an stop data 1305 Recovery or ICU Handoff Carrol ent care was transferred to the destination unit staff after review of the patient's medical history, current anesthetic/surgical status and plan, according to the Provider Handoff Checklist. 1305 Stop Meds Name Total IV Lidocaine 20 mg Propofol 200 mg Rocuronium 40 mg PHENYLephrine 80 mcg Ondansetron 4 mg Neostigmine 3 mg Glycopyrrolate 0.4 mg Dexmedetomidine 8 mcg Propofol INF 344.16 mg Lactated Ringers 700 mL * Agents Name O2 Air N2O Sevoflurane (et) * Blood No blood administrations on file. Lines, Drains, and Airways Type Details Placement Removal (RETIRED) Peripheral IV Line - Single Lumen 06/14/21; 1035; cephalic vein (lateral side of arm), right; ezbr-tjy-yroezy catheter system; 22 gauge; filomena mott rn; distraction, intradermal injection, tolerated well, appears comfortable; 1 (attempted debbie butt rn); cephalic vein (lateral side of arm), right; 06/14/21; 1356 06/14/21 1035 by Allyn Dugan RN 06/14/21 1356 by Jennie Buckner RN ETT Mask Ventilation: Ea sy (1); ETT Type: Cuffed; ETT Size: 8 mm; Mac Blade: 3; Notes: Asleep, Pre-O2, Stylette; Attempts: 1; Laryngoscopy Grade: 1; ETT Placement Verified By: Auscultation, Capnometry, Visual; Secured at Teeth: 22 cm; Inserted by: Pamela PALENCIA; Removal Date: 06/14/21; Removal Time: 1305 06/14/21 1206 by Catina Vinson CRNA 06/14/21 1305 by Catina Vinson CRNA documented in this encounter Social History Tobacco Use Types Packs/Day Years Used Date Smoking Tobacco: Former Cigarettes 1 42 0 03/11/1979 - 03/11/2021 Smokeless Tobacco: Never Comments:vaping several x/da y Alcohol Use Standard Drinks/Week Comments Never 0 (1 standard drink = 0.6 oz pur e alcohol) Sex and Gender Information Value Date Recorded Sex Assigned at Not on file Gender Identity Not on file Sexual Orientation Not on file documented as of this encounter OR Notes * Anesthesia Postprocedure Evaluation - Jessica Betancourt MD - 06/14/2021 11:22 PM EST Department of Anesthesiology Post-procedure Note Patient: Stefanie Pina Procedure Summary Date: 06/14/21 Room / Location: [facility] ENDO 1 / [facility] ENDOSCOPY Anesthesia Start: 1155 Anesthesia Stop: 1305 Procedures: BRONCH, W ENDOBRONCHIAL ULTRASOUND (EBUS) GUIDED SAMPLING, 1/2 NODES (WRVU 4.71) (N/A ) BRONCHOSCOPY, RIGID OR FLEXIBLE, WITH BRONCHIAL ALVEOLAR LAVAGE (WRVU 2.88) (N/A Chest) Diagnosis: Mediastinal adenopathy (Mediastinal adenopathy/ Bronchoscopy with EBUS/ GA/ Leonie) Surgeons: Sebastian Hadley MD Responsible Provider: Jessica Betancourt MD Anesthesia Type: general ASA Status: 3 All Anesthesia Providers: Anesthesiologist: Jessica Betancourt MD DESKTOP OPERATOR: Catina Vinson CRNA Vitals Value Taken Time BP 137/68 06/14/21 1330 Temp Pulse Resp 16 06/14/21 1330 SpO2 95 % 06/14/21 1330 Pain Level 0 06/14/21 1330 Vitals shown include unvalidated device data. Patient Location: PACU/[facility] Level of Consciousness: Awake and Alert Pain Management: Satisfactory Analgesia PONV: None Cardiovascular Status: At Baseline and Hemodynamically Stable Respiratory Status: At Baseline and Room Air Postoperative Fluid Status: Intravascular EUvolemia Possible Anesthetic Complications: NONE apparent at time of evaluation Final Primary Anesthesia Type: General (The anesthetic type performed was the same as planned.) Comments: JESSICA BETANCOURT MD * Anesthesia Preprocedure Evaluation - Jessica Betancourt MD - 06/14/2021 10:55 AM EST Images from the original note were not included. Pre-Anesthesia Evaluation for: Stefanie Pina a 65 y.o. female. Procedure(s): BRONCH, W ENDOBRONCHIAL ULTRASOUND (EBUS) GUIDED SAMPLING, 1/2 NODES (WRVU 4.71) There are no problems to display for this patient. No past medical history on file. No past surgical history on file. Social History Tobacco Use ??? Smoking status: [...] REMOVE Please contact the Blood Bank at [phone] for questions. ??? Sulfamethoxazole-Trimethoprim Other reaction(s): Respiratory problems, e.g., wheezing;Dermatological problems, e.g., rash, hives; ??? Methadone Other reaction(s): vomiting ??? Mold Extracts ??? Mushroom Flavor Medications: MAR and/or home medications have been reviewed. Physical Exam: Preprocedure Vitals Current as of 06/14/21 1055 BP: 127/54 Pulse: 68 Resp: SpO2: 99 Temp: 36.6 ??C (97.8 ??F) Height: 165.1 cm (5' 5) (06/14/21) Weight: 57.6 kg (127 lb) (06/14/21) BMI: 21.13 IBW: 57 kg (125 lb 10.6 oz) Last edited 06/14/21 1022 by Airway Assessment: Mallampati: II TM distance: >3 FB Neck ROM: full Cardiovascular Assessment: system normal Pulmonary Assessment: pulmonary exam normal Dental Assessment: (+) upper dentures Comment: Nothing loose bottom incisors only Misc Assessment: Patient is wearing No contact(s). IV access: Peripheral line Last Filed Perioperative Cognitive Screening None Anesthesia Plan: ASA 3 general, with a(n) intravenous induction 65 y.o. female who was found to have multiple < 6mm nodules on a lung cancer screening CT as well as an enlarging sub-carinal lymph node. We discussed that the nodules likely do not represent cancer, but rather non-calcified granuloma. Plan to proceed with EBUS. Plan GA with ETT Region - Other Informed Consent: Anesthetic plan and risks discussed with patient. Plan discussed with DESKTOP OPERATOR. Anesthesia Screening documented in this encounter Plan of Treatment Upcoming Encounters Date Type Department Care Team (Late st Contact Info) Description 08/30/2024 2:00 PM EST Office Visit Hematology/Oncology at [address] [phone] Mars Conley MD [facility] DR HEMATOLOGY [place] [address] Cailin Marrero APRN [address] [place] [address] DR HEMATOLOGY AND ONCOLOGY [place], [place] [id number] 09/07/2024 9:00 AM EST Office Visit [place] [phone] Raven Alvarado MD [facility] [place] [address] 10/04/2024 1:15 PM EST Office [place] [phone] Feliciano Shay, [facility] [place] [address] documented as of this encounter Visit Diagnoses Not on filedocumented in this encounter Administered Medications Inactive Administered Medications - up to 3 most recent administrations Medication Order MAR Action Action Date Dose Rate Site dexmedetomidine (Precedex) (4 mcg/mL) bolus injection (Anesthsia) Intravenous, PRN, Starting on Parisa 06/14/21 at 1201, Until Parisa 06/14/21 at 1305, Anesthesia Intra-op, Routine Given 06/14/2021 12:14 PM EST 4 mcg Given 06/14/2021 12:01 PM EST 4 mcg glycopyrrolate (Robinul) (0.2 mg/mL) multi-dose injection Intravenous, PRN, Starting on Parisa 06/14/21 at 1256, Until Parisa 06/14/21 at 1305, Anesthesia Intra-op, Routine Given 06/14/2021 12:56 PM EST 0.4 mg lactated ringers infusion Intravenous, CONTINUOUS PRN, Starting on Parisa 06/14/21 at 1155, Until Parisa 06/14/21 at 1305, Anesthesia Intra-op New Bag 06/14/2021 11:55 AM EST lidocaine (pf) (Xylocaine) (20 mg/mL) 2% injection syringe Intravenous, PRN, Starting on Parisa 06/14/21 at 1201, Until Parisa 06/14/21 at 1305, Anesthesia Intra-op, Routine Given 06/14/2021 12:01 PM EST 20 mg neostigmine (Bloxiver) (1 mg/mL) injection Intravenous, PRN, Starting on Parisa 06/14/21 at 1256, Until Parisa 06/14/21 at 1305, Anesthesia Intra-op, Routine Given 06/14/2021 12:56 PM EST 3 mg ondansetron (pf) (Zofran) (2 mg/mL) injection Intravenous, PRN, Starting on Parisa 06/14/21 at 1257, Until Parisa 06/14/21 at 1305, Anesthesia Intra-op, Routine Given 06/14/2021 12:57 PM EST 4 mg PHENYLephrine in NS (PF) (HA-SYNEPHRINE) 0.8 mg/10 mL (80 mcg/mL) multi-dose injection Syrg Intravenous, PRN, Starting on Parisa 06/14/21 at 1238, Until Parisa 06/14/21 at 1305, Anesthesia Intra-op, Routine Given 06/14/2021 12:38 PM EST 80 mcg propofoL (Diprivan) (10 mg/mL) infusion Intravenous, CONTINUOUS PRN, Starting on Parisa 06/14/21 at 1206, Until Parisa 06/14/21 at 1305, Anesthesia Intra-op, Routine Rate/Dose Change 06/14/2021 12:38 PM EST 50 mcg/kg/min 17.28 mL/hr Rate/Dose Change 06/14/2021 12:31 PM EST 75 mcg/kg/min 25. 92 mL/hr Rate/Dose Change 06/14/2021 12:22 PM EST 100 mcg/kg/min 34 .56 mL/hr propofoL (Diprivan) 10 mg/mL bolus injection (Anesthesia) Intravenous, PRN, Starting on Parisa 06/14/21 at 1201, Until Parisa 06/14/21 at 1305, Anesthesia Intra-op Given 06/14/2021 12:01 PM EST 200 mg rocuronium (Zemuron) (10 mg/mL) multi-dose injection Intravenous, PRN, Starting on Parisa 06/14/21 at 1203, Until Parisa 06/14/21 at 1305, Anesthesia Intra-op, Routine Given 06/14/2021 12:13 PM EST 10 mg Given 06/14/2021 12:03 PM EST 30 mg documented in this encounter Care Teams Army Ranger Relationship Specialty Start Date End Date Marco Antonio-Nini Landrum MD [address] [address] PCP - General 06/26/10 documented as of this encounter
--- OUTSIDE RECORDS SUMMARY | 2024-08-27 00:50 | XMS_ITS | Encounter Summary ---
Author Organization [facility] [place] [address] Care Team Providers Care Leaf Blender Name Role Phone Nini Machado MD Primary Care Provider [phone] Encounter Details Date Type Department Care Team (Latest Contact Info) Description 07/17/2020 8:41 AM EST - 07/17/2020 11:59 PM [facility] [place] [address] Discharge Disposition: Home Social History Tobacco Use Types Packs/Day Years Used Date Smoking Tobacco: Every Day Cigarettes 1 42 Sex and Gender Information Value Date Recorded Sex Assigned at Not on file Gender Identity Not on file Sexual Orientation Not on file documented as of this encounter Medications at Time of Discharge Medication Sig Dispensed Refills Start Date End Date estradioL (ESTRACE) 0.01 % (0.1 mg/gram) Cream PRN: 7days prior to pap smear 04/19/2011 EPINEPHrine 0.3 mg/0.3 mL Auto-Injector EPIPEN 2-GIOVANNA 0.3 MG/0.3ML SOAJ 11/02/2013 albuteroL (Proventil) 2.5 mg /3 mL (0.083 %) Solution for Nebulization ALBUTEROL SULFATE (2.5 MG/3ML) 0.083% NEBU 06/12/2018 sertraline (ZOLOFT) 100 mg Tablet daily. 11/06/2018 08/06/2021 loratadine (Claritin) 10 mg Tablet as needed. 07/12/2015 08/06/2021 baclofen (LIORESAL) 10 mg tablet 11/17/2009 08/16/2021 clopidogrel (PLAVIX) 75 mg tablet 11/17/2009 06/08/2021 documented as of this encounter Plan of Treatment Upcoming Encounters Date Type Department Care Team (Late st Contact Info) Description 08/30/2024 2:00 PM EST Office Visit Hematology/Oncology at [address] [phone] Mars Conley MD [facility] [address] [place] [address] Cailin Marrero APRN [address] [place] [address] DR HEMATOLOGY AND ONCOLOGY [place], [place] [address] 09/07/2024 9:00 AM EST Office Visit [place] [phone] Raven Alvarado MD [facility] [place] [address] 10/04/2024 1:15 PM EST Office [place] [phone] Feliciano Shay, [facility] [place] [address] documented as of this encounter Procedures Procedure Name Priority Date/Time Associated Diagnosis Comments COVID-19 PCR Routine 07/17/2020 4:07 PM EST documented in this encounter Results * COVID-19 PCR (07/17/2020 4:07 PM EST) SARS-CoV-2 RNA Not Detected Not Detected [facility] Comment: This result should be interpreted [...] diagnosis of COVID-19 is performed using the [employer] RealTime SARS-CoV-2 Assay as authorized by the FDA Emergency Use Authorization (EUA). This EUA assay is intended for In-vitro Diagnostic (IVD) use with respiratory specimens such as nasopharyngeal swabs collected from individuals during the acute phase of infection. This assay is performed based on the instructions for use provided by [employer] and additional guidance provided by [facility] and FDA. Testing is performed in the [facility] within the Department of Pathology and Laboratory Medicine at [facility], certified under the Clinical Laboratory Improvement Amendments of 1988 (CLIA), 42 U.S.C. 263a, to perform high complexity tests. Assay performance has been verified according to clinical laboratory regulatory requirements for use with specimens collected from individuals suspected of COVID-19. Test results are provided above. A result of ? Not Detected? indicates that the viral RNA target is [...] be considered in the context of a patient? s recent exposures and the presence of clinical signs and symptoms consistent with COVID-19. A result of ? Detected? indicates that RNA from SARS-CoV-2 was detected and the patient is infected. As required or requested by public health authorities, positive specimens may be sent for additional testing. Positive and negative predictive values for this test are highly dependent on disease prevalence. A result of ? Invalid? indicates that neither the viral RNA targets nor the internal control target was detected. An invalid result suggests the presence of inhibitors. Recollection and re-testing is recommended in the case of an invalid result. CDC COVID-19 criteria for testing on human specimens and clinical management guidance information are available at the CDC Coronavirus Disease 2019 (COVID-19) webpage under ? Information for Healthcare Professionals? (https://www.cdc.gov/coronavirus/2019-ncov/hcp/index.html) Additional information about this and other EUA tests can be found in provider and patient fact sheets at the following FDA website: https://www.fda.gov/medical-devices/frzygpwkclj-wghjwoo-5011-wimzw-49-bxqirxwea- use-a jioqcfnbeuril-jfdoxlj-rdacqkz/uapqa-oucstafnqny-wqha SARS-CoV-2 RNA Source [employer]SE[employer] Swab [facility] Nasopharyngeal swab (specimen) Other / Unknown 07/17/2020 4:07 PM EST 07/19/2020 4:56 PM EST Narrative Resulting Agency Comment Spec In Lab Joel Kinsey DO MOLECULAR ORDER YOANA [facility] [place] [address] documented in this encounter Visit Diagnoses Not on filedocumented in this encounter Care Teams Leaf Blender Relationship Specialty Start Date End Date Nini Machado MD [address] [address] PCP - General 06/26/10 documented as of this encounter
--- OUTSIDE RECORDS SUMMARY | 2024-08-27 00:50 | XMS_ITS | Encounter Summary ---
Author Organization [facility] Address [facility] [place] [address] Care Team Providers Care Cycle Touring Guide Name Role Phone Nini Machado MD Primary Care Provider [phone] Encounter Details Date Type Department Care Team (Latest Contact Info) Description 06/14/2021 9:58 AM EST - 06/14/2021 2:16 PM EST Hospital [place] [address] BackerSebastian MD [facility] [place] [address] Discharge Disposition: Home Social History Tobacco Use [...] Sign Reading Time Taken Comments Blood Pressure 137/68 06/14/2021 1:30 PM EST Pulse 68 06/14/2021 10:22 AM EST Temperature 36.6 ??C (97.8 ??F) 06/14/2021 10:[address] Respiratory Rate 16 06/14/2021 1:30 PM EST Oxygen Saturation 95% 06/14/2021 1:30 PM EST Inhaled Oxygen Concentration - - Weight 57.6 kg (127 lb) 06/14/2021 10:22 AM EST Height 165.1 cm (5' 5) 06/14/2021 10:22 AM EST Body Mass Index 21.13 06/14/2021 10:22 AM EST documented in this encounter Discharge Instructions * Discharge Instructions* Jennie Buckner RN - 06/14/2021 1:55 PM EST Bronchoscopy: What to Expect at Home Your Recovery Bronchoscopy lets your doctor look at your airway through a tube called a bronchoscope. Afterward, you may feel tired for 1 or 2 days. Your mouth may feel very dry for several hours after the procedure. You may also have a sore throat and a hoarse voice for a few days. Sucking on throat lozenges orgargling with warm salt water may help soothe your sore throat. If a sample of tissue (biopsy) was taken, you may spit up a small amount of blood or have bloody saliva. This is normal. This care sheet gives you a general idea about how long it will take for you to recover. But each person recovers at a different pace. Follow the steps below to get better as quickly as possible. How can you care for yourself at home? Activity ?? Rest when you feel tired. Getting enough sleep will help you recover. ?? Avoid strenuous activities, such as bicycle riding, jogging, weight lifting, or aerobic exercise, until your doctor says it is okay. Diet ?? You can eat your normal diet. If your stomach is upset, try bland, low-fat foods like plain rice, broiled chicken, toast, and yogurt. ?? If it is painful to swallow, start out with cold drinks, flavored ice pops, and ice cream. Next,try soft foods like pudding, yogurt, canned or cooked fruit, scrambled eggs, and mashed potatoes. Avoid eating hard or scratchy foods like chips or raw vegetables. Avoid orange or tomato juice and other acidic foods that can sting the throat. ?? Drink plenty of fluids to avoid becoming dehydrated (unless your doctor tells you not to). Medicines ?? Take pain medicines exactly as directed. ? If the doctor gave you a prescription medicine for pain, take it as prescribed. ? If you are not taking a prescription pain medicine, ask your doctor if you can take an dmpm-dup-ubgjwyf medicine. ?? If you think your pain medicine is making you sick to your stomach: ? Take your medicine after meals (unless your doctor has told you not to). ? Ask your doctor for a different pain medicine. ?? If your doctor prescribed antibiotics, take them as directed. Do not stop taking them just because you feel better. You need to take the full course of antibiotics. Follow-up care is a willard part of your treatment and safety. Be sure to make and go to all appointments, and call your doctor if you are having problems. It's also a good idea to know your test resultsand keep a list of the medicines you take. When should you call for help? Call 911 anytime you think you may need emergency care. For example, call if: ?? You passed out (lost consciousness). ?? You have sudden chest pain and shortness of breath. ?? You cough up large amounts of bright red blood. ?? You have severe pain in your chest. ?? You have severe trouble breathing. Call your doctor now or seek immediate medical care if: ?? You cough up more than a few tablespoons of blood. ?? You have pain that does not get better after you take pain medicine. ?? You have a fever over 100??F. ?? You still sound hoarse after a few days. ?? You have bubbles under the skin around the collarbone. These may crackle and pop when you press on them. Watch closely for changes in your health, and be sure to contact your doctor if you have any problems. Where can you learn more? Visit our health information library at [email or web address]. You can also view health information on [employer], your personal patient account. Log in or sign uptoday. Enter S288 in the search box to learn more about Bronchoscopy: What to Expect at Home. Current as of: January 10, 2019 Content Version: 12.2 ?? [id number] [employer]. Care instructions adapted under license by [facility]. If you have questions about a medical condition or this instruction, always ask your healthcare professional. Healthwise, [employer] disclaims any warranty or liability for your [...] as of this encounter H&P Notes * Sebastian Hadley MD - 06/14/2021 8:17 AM EST Interventional Pulmonology Pre-Procedure History & Physical SECTION OF PULMONARY/CRITICAL CARE MEDICIE Procedure: Bronchoscopy, endobronchial ultrasound (EBUS) and biopsy Reason for procedure: Lymphadenopathy See last note from Dr. Saleh. PHYSICAL EXAM: No data found. Mental Status: AOX3 Airway examination: Feasible Pulmonary: Clear to ausculation bilaterally CV: RRR, no murmurs or gallops ASA Grade: ASA III (Patient has severe systemic disease that is not incapacitating) Assessment & Plan: ?? Consent to be signed ?? Proceed with procedure as stated Sebastian Hadley MD, 06/14/2021, 8:17 AM Interventional Pulmonology Section of Pulmonary & Critical Care Pager: [phone] documented in this encounter Miscellaneous Notes * Op Note - Sebastian Hadley MD - 06/14/2021 12:13 PM EST Images from the original note were not included. INTERVENTIONAL PULMONOLOGY PROCEDURE NOTE SECTION OF PULMONARY & CRITICAL CARE MEDICINE Patient Name: Stefanie Pina Patient Patient : 1955 Procedure Date: 06/14/2021 Procedure(s): A flexible bronchoscopy Airway examination EBUS-TBNA (4 sites(s)) Therapeutic suctioning Procedure Location: Endoscopy unit Indication: Lymphadenopathy Attending(s) of Record: Sebastian Hadley MD Others Present: None Medications: General Anesthesia - See anesthesia flowsheet for details Sedation Time: Per anesthesia care provider Time Out: Performed The patient's medical record has been reviewed. The indication for the procedure was reviewed. The necessary history and physical examination was performed and reviewed. The risks, benefits and alternatives of the procedure were discussed with the patient in detail and she had the opportunity to ask questions. I discussed in particular the potential complications including risks of minor or life-threatening bleeding and/or infection, hemoptysis, fever, respiratory failure, voice hoarseness, pneumothorax, and discomfort. Sedation risks were also discussed including abnormal heart rhythms, low blood pressure, and respiratory failure. All questions were answered to the best of my ability. Informed consent was obtained. The proposed procedure and the patient's identification were verified prior to the procedure by the physician and the nurse. After clinical evaluation and reviewing the indication, risks, alternatives and benefits of the procedure the patient was deemed to be in satisfactory condition to undergo the procedure. The patient was assessed for the adequacy for the procedure and to receive medications. Mental Status: Alert and oriented x3 Airway examination: Feasible Pulmonary: Bilateral breath sounds CV: RRR ASA Grade: ASA III (Patient has severe systemic disease that is not incapacitating) Procedure Descriptions: Airway Examination: An Olympus H190 flexible bronchoscope was used for the procedure. The bronchoscope was inserted through the endotracheal tube and inspection undertaken. A complete airway examination was performed from the distal trachea to the subsegmental level in each lobe of both lungs. Pertinent findings include normal bronchial anatomy, no endobronchial lesions and no secretions. EBUS-TBNA (4 lymph node stations): The Olympus EBUS ([id number]) scope was inserted, lymph node inspection undertaken and transbronchial needle aspiration obtained from the following stations using the Olympus ViziShot-1 22 gauge TBNA needle: 1) Station 11L (not enlarged) with 4 passes obtained withROSE absent. 2) Station 4R (not enlarged) with 3 passes obtained with FERNANDO absent. 3) Station 11Rs(superior) (enlarged) with 4 passes obtained with FERNANDO absent. 4) Station 7 (enlarged) with 8 passes (including 1 pass for flow) obtained with FERNANDO absent. Abundant material was collected in 10% neutral buffered formalin and PhysioSol and sent for cytology review and flow cytometry. Note, all mediastinal, hilar, lobar and segmental stations are evaluated during the procedure and those not listed were not biopsied due to small lymph node diameter, positive FERNANDO on higher leonardo staging, alternativediagnosis or inability to continue with the procedure. Specifically, station 4L was <5 mm. Therapeutic Suctioning (49813): At least 15-20 min of operative time was spent clearing out the airway of debris, blood and/or secretions prior to or during the intervention. Any disposable equipment was visually inspected and deemed to be intact immediately post procedure. Estimated Blood Loss: 5 mL Complications: None Relevant Pictures No pertinent imaging Recommendations: ??? Successful flexible bronchoscopy and EBUS-TBNA (4 sites) ??? Await pending results in the next 3-5 business days ??? Case to be discussed at upcoming tumor board conference Sebastian Hadley MD, 06/14/2021, 1:00 PM Interventional Pulmonology Section of Pulmonary & Critical Care Pager: [phone] documented in this encounter Plan of Treatment Upcoming Encounters Date Type Department Care Team (Late st Contact Info) Description 08/30/2024 2:00 PM EST Office Visit Hematology/Oncology at [address] [phone] Mars Conley MD [facility] [address] [place] [address] Cailin Marrero APRN [address] [place] [address] DR HEMATOLOGY AND ONCOLOGY [place], [place] [id number] 09/07/2024 9:00 AM EST [place] [phone] Raven Alvarado MD [facility] [place] [address] 10/04/2024 1:15 PM EST [place] [phone] Feliciano Shay, [facility] [place] [address] documented as of this encounter Procedures Procedure Name Priority Date/Time Associated Diagnosis Comments NON-PROCESS ENGINEERING INTERN FINAL REPORT Routine 06/14/2021 12:56 PM EST NON-PROCESS ENGINEERING INTERN FINAL REPORT Routine 06/14/2021 12:56 PM EST NON-PROCESS ENGINEERING INTERN FINAL REPORT Routine 06/14/2021 12:56 PM EST NON-PROCESS ENGINEERING INTERN FINAL REPORT Routine 06/14/2021 12:56 PM EST CYTOPATHOLOGY NON-GYNECOLOGICAL Routine 06/14/2021 12:56 PM EST CYTOPATHOLOGY NON-GYNECOLOGICAL Routine 06/14/2021 12:56 PM EST CYTOPATHOLOGY NON-GYNECOLOGICAL Routine 06/14/2021 12:56 PM EST CYTOPATHOLOGY NON-GYNECOLOGICAL Routine 06/14/2021 12:56 PM EST IMMUNOPHENOTYPING FLOW CYTOMETRY (BLOOD) Routine 06/14/2021 12:45 PM EST FLOW CYTOMETRY REPORT Routine 06/14/2021 12:45 PM EST HC BODY FLUID CELL COUNT Routine 021 12:19 PM EST IMMUNOPHENOTYPING FLOW CYTOMETRY (BLOOD) Routine 06/14/2021 12:19 PM EST NON-PROCESS ENGINEERING INTERN FINAL REPORT Routine 06/14/2021 12:19 PM EST FLOW CYTOMETRY REPORT Routine 06/14/2021 12:19 PM EST HC SPUTUM CULTURE Routine 06/14/2021 12: 17 PM EST CYTOPATHOLOGY NON-GYNECOLOGICAL Routine 06/14/2021 12:17 PM EST Bronchoscopy, Diagnostic W Lavage ([id number]) 06/14/2021 11:55 AM EST Mediastinal adenopathy [facility] Ebus Guided Sampl 1/2 Node Station/Strux ([id number]) 06/14/2021 11:55 AM EST Mediastinal adenopathy documented in this encounter Results * Non-Senior Principal Final Report (06/14/2021 12:56 PM EST) Diagnosis Discussion [id number] ? Location: 4T; EA13; A The signing pathologist has (i) examined the relevant preparation(s) for the specimen(s) and (ii) rendered or confirmed the diagnosis(es). . ? Non-Senior Principal Final DIAGNOSIS Positive for Malignancy Electronically signed by: ?Marek Pickering MD Verified: ??06/15/2021 19:27 ??Pathologist Performed at: ??[facility] 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 --- Immunohistochemistry Studies --- Interpretation: ? Immunohistochemical assays were performed (on paraffin-embedded cell block sections fixed in 10% neutral buffered formalin for 6-72 hours) using the polymer technique with appropriate controls. The sections are studied for TTF-1, synaptophysin, chromogranin, p40, and Ki-67. The lesional cells are immunoreactive with CKAE1/3, TTF-1, synaptophysin, and chromogranin (focal); they are negative for p40. Ki-67 index is >70%. These immunohistochemical studies provide ancillary information and are used only in conjunction with standard diagnostic procedures. CLINICAL INFORMATION Specimen Source : Lymph node, station 7 (EBUS-guided FNA) Pertinent Clinical Data and Significant Therapy: Lymphadenopathy Clinical Impression : Possible cancer Pertinent Radiologic Findings ??: (not provided) Gross Description: Received ??in Formalin approximately 45 mL total volume of ?? cloudy, red fluid, with clots. Total Preparation: Cell Block 1. 06/15/2021 7:27 PM EST [facility] LYMPH NODE SPECIMEN / Unknown 06/14/2021 12:56 PM EST 06/14/2021 12:56 PM EST Sebastian Hadley MD PATHOLOGY/CYTOLOGY O RDERABLES [facility] [place] [address] * Non-Senior Principal Final Report (06/14/2021 12:56 PM EST) Diagnosis Discussion [id number] ? Location: 4T; EA13; A The signing pathologist has (i) examined the relevant preparation(s) for the specimen(s) and (ii) rendered or confirmed the diagnosis(es). . ? Non-Senior Principal Final DIAGNOSIS Negative for Malignancy Electronically signed by: ?Marek Pickering MD Verified: ??06/15/2021 19:23 ??Pathologist Performed at: ??[facility] [place], [place], [place] DISCUSSION Lymph node, station 11R (EBUS-guided FNA): Lymphoid cells are present, consistent with lymph node sampling. Cell block was examined. CLINICAL INFORMATION Specimen Source : Lymph node, station 11R (EBUS-guided FNA) Pertinent Clinical Data and Significant Therapy: Lymphadenopathy Clinical Impression : Possible cancer Pertinent Radiologic Findings ??: (not provided) Gross Description: Received ??in Formalin approximately 45 mL total volume of ?? cloudy, red fluid, with clots. Total Preparation: Cell Block 1. 06/15/2021 7:23 PM EST [facility] LYMPH NODE SPECIMEN / Unknown 06/14/2021 12:56 PM EST 06/14/2021 12:56 PM EST Sebastian Hadley MD PATHOLOGY/CYTOLOGY O RDERABLES [facility] [place] [address] * Non-Senior Principal Final Report (06/14/2021 12:56 PM EST) Diagnosis Discussion [id number] ? Location: 4T; EA13; A The signing pathologist has (i) examined the relevant preparation(s) for the specimen(s) and (ii) rendered or confirmed the diagnosis(es). . ? Non-Senior Principal Final DIAGNOSIS Negative for Malignancy Electronically signed by: ?Marek Pickering MD Verified: ??06/15/2021 19:22 ??Pathologist Performed at: ??[facility] [place], [place], [place] DISCUSSION Lymph node, station 4R (EBUS-guided FNA): Lymphoid cells are present, consistent with lymph node sampling. A few small histiocytic aggregates are noted, suggestive of non-necrotizing granulomas. Special stains for fungus (GMS) and acid fast bacilli (AFB) are negative with satisfactory controls. Cell block was examined. CLINICAL INFORMATION Specimen Source : Lymph node, station 4R (EBUS-guided FNA) Pertinent Clinical Data and Significant Therapy: Lymphadenopathy Clinical Impression : Possible cancer Pertinent Radiologic Findings ??: (not provided) Gross Description: Received ??in Formalin approximately 45 mL total volume of ?? cloudy, pink fluid, with clots. Total Preparation: Cell Block 1. 06/15/2021 7:22 PM EST [facility] LYMPH NODE SPECIMEN / Unknown 06/14/2021 12:56 PM EST 06/14/2021 12:56 PM EST Sebastian Hadley MD PATHOLOGY/CYTOLOGY O RDERABLES [facility] [place] [address] * Non-Senior Principal Final Report (06/14/2021 12:56 PM EST) Diagnosis Discussion [id number] ? Location: 4T; EA13; A The signing pathologist has (i) examined the relevant preparation(s) for the specimen(s) and (ii) rendered or confirmed the diagnosis(es). . ? Non-Senior Principal Final DIAGNOSIS Negative for Malignancy Electronically signed by: ?Marek Pickering MD Verified: ??06/15/2021 19:22 ??Pathologist Performed at: ??-[facility] [place], [facility], [place], [place] DISCUSSION Lymph node, station 11L (EBUS-guided FNA): Lymphoid cells are present, consistent with lymph node sampling. A few small histiocytic aggregates are noted, suggestive of non-necrotizing granulomas. Special stains for fungus (GMS) and acid fast bacilli (AFB) are negative with satisfactory controls. Cell block was examined. CLINICAL INFORMATION Specimen Source : Lymph node, station 11L (EBUS-guided FNA) Pertinent Clinical Data and Significant Therapy: Lymphadenopathy Clinical Impression : Possible cancer Pertinent Radiologic Findings ??: (not provided) Gross Description: Received ??in Formalin approximately 45 mL total volume of ?? cloudy, red fluid, with clots. Total Preparation: Cell Block 1. 06/15/2021 7:22 PM EST [facility] LYMPH NODE SPECIMEN / Unknown 06/14/2021 12:56 PM EST 06/14/2021 12:56 PM EST Sebastian Hadley MD PATHOLOGY/CYTOLOGY O RDERABLES [facility] [place] [address] * Cytopathology Non-Gynecological (06/14/2021 12:56 PM EST) AP Specimen 06/14/2021 12:5 6 PM EST 06/14/2021 12:56 PM EST Narrative [facility] - 06/14/2021 12:56 PM EST Specimen requisition ordered. ??Separate Pathology report to follow Sebastian Hadley MD PATHOLOGY/CYTOLOGY O RDERAROBINSON [facility] [place] [address] * Cytopathology Non-Gynecological (06/14/2021 12:56 PM EST) AP Specimen 06/14/2021 12:5 6 PM EST 06/14/2021 12:56 PM EST Narrative [facility] - 06/14/2021 12:56 PM EST Specimen requisition ordered. ??Separate Pathology report to follow Sebastian Hadley MD PATHOLOGY/CYTOLOGY O BRANDIN Performing Organization Address City/[facility]/ZIP Co de Phone Number [facility] [place] [address] * Cytopathology Non-Gynecological (06/14/2021 12:56 PM EST) AP Specimen 06/14/2021 12:5 6 PM EST 06/14/2021 12:56 PM EST Narrative [facility] - 06/14/2021 12:56 PM EST Specimen requisition ordered. ??Separate Pathology report to follow Sebastian Hadley MD PATHOLOGY/CYTOLOGY O BRANDIN Performing Organization Address City/[facility]/ZIP Co de Phone Number [facility] [place] [address] * Cytopathology Non-Gynecological (06/14/2021 12:56 PM EST) AP Specimen 06/14/2021 12:5 6 PM EST 06/14/2021 12:56 PM EST Narrative [facility] - 06/14/2021 12:56 PM EST Specimen requisition ordered. ??Separate Pathology report to follow Sebastian Hadley MD PATHOLOGY/CYTOLOGY O BRANDIN [facility] [place] [address] * Flow Cytometry Report (06/14/2021 12:45 PM EST) Flow Cytometry Report [id number] ? Location: 4T; EA13; A The signing pathologist has (i) examined the relevant preparation(s) for the specimen(s) and (ii) rendered or confirmed the diagnosis(es). . ?Flow Cytometry DIAGNOSIS LYMPH NODE, STATION 7 - FLOW CYTOMETRY: No monotypic B-cell population or specific corbin-T-cell marker aberrancies are detected (see comment) COMMENT: No neoplastic lymphoproliferation is immunophenotypically detected. Flow cytometry may not detect all abnormal lymphoproliferations and is not suitable for the evaluation of non-hematologic processes. Please correlate results with the morphologic findings in the primary biopsy report. Electronically signed by: ?Rosalino Bunch MD Verified: ??06/14/2021 19:19 ??Hematopathologist Performed at: ??-[facility] [place], [place], [place] DISCUSSION Cell viability in the QK13-aegeqz low-SSC scatterplot region was 82% as assessed by 7-AAD exclusion. The lymphocyte enriched gate represents about 68% of the total events, and this gated population consists mostly of T-cells (58%), B-cells (28%), NK-cells (3%), and some non-viable or non-lymphoid debris. The T-cells show a CD4:CD8 ratio of about 4.9:1, and no corbin-T-cell marker aberrancy is identified. The B-cells are polytypic with a kappa:lambda ratio of about 1.4:1. Flow analysis is an ancillary study. A definite diagnosis requires correlation with the morphologic features of this process and if necessary, correlation with other ancillary studies like immunohistochemistry, enzyme cytochemistry and/or cyto/ molecular genetics. This test was developed and its performance characteristics determined by the Clinical Flow Cytometry Laboratory at [facility]. It has not been cleared or approved by the U.S. Food and Drug Administration. ??The FDA has determined that such clearance or approval is not necessary. ??This test is used for clinical purposes. ??It should not be regarded as investigational or for research. This laboratory is certified under the Clinical Laboratory Improvement Act of 1988 (CLIA) as qualified to perform high complexity clinical laboratory testing. SPECIMEN PROCESSING [id number] Cells for immunophenotypic analysis were derived from EBUS FNA station 7 lymph node. CD45 vs side scatter gating was utilized to identify a lymphocyte analysis region that comprises approximately 68-70% of all cells. The following markers were assessed: CD2, CD3, CD4, CD5, CD7, CD8, CD10, CD19, CD56, kappa light chain, and lambda light chain. CLINICAL INFORMATION A 65 year old woman who underwent bronchoscopy with needle aspirate of an enlarged station 7 mediastinal lymph node. [facility] 06/14/2021 12:4 5 PM EST Sebastian Hadley MD PATHOLOGY/CYTOLOGY O RDERABLES Performing Organization Address [facility] Co de Phone Number [facility] [place] [address] * Immunophenotyping Flow Cytometry (06/14/2021 12:45 PM EST) Immunophenotyping Flow See Comment [facility] Comment: When completed by the Pathologist, the Flow Cytometry Report ([id number]) will display under the Pathology Results section within [facility]. Other 06/14/2021 12:4 5 PM EST 06/14/2021 1:18 PM EST Narrative Resulting Agency Comment Spec In Lab Sebastian Hadley MD HEMATOLOGY ORDERABLE S Performing Organization Address [facility] Co de Phone Number [facility] [place] [address] * Non-Senior Principal Final Report (06/14/2021 12:19 PM EST) Diagnosis Discussion [id number] ? Location: 4T; EA13; A The signing pathologist has (i) examined the relevant preparation(s) for the specimen(s) and (ii) rendered or confirmed the diagnosis(es). . ? Non-Senior Principal Final DIAGNOSIS Atypical Electronically signed by: ?Dinesh Roman MD Verified: ??06/18/2021 17:19 ??Pathologist Performed at: ??-[facility] [place], [place], [place] DISCUSSION Bronchial alveolar lavage: Rare clusters of atypical cells are noted. Benign respiratory epithelial cells, alveolar macrophages and mucus are present. Cell block was examined; it is extremely paucicellular and contains rare ? respiratory epithelial cells and macrophages ??. Additional levels examined. CLINICAL INFORMATION Specimen Source : Bronchial alveolar lavage Pertinent Clinical Data and Significant Therapy: R/o pulmonary malignancy Clinical Impression : R/o pulmonary malignancy Pertinent Radiologic Findings ??: (not provided) Gross Description: Received ??fresh, approximately 5 mL total volume of ?? clear, colorless fluid, with light flecks. Total Preparation: Liquid-Based Prep 1; Cell Block 1. 06/18/2021 5:19 PM EST [facility] BRONCHIAL STRUCTURE / Unknown 06/14/2021 12:19 PM EST 06/14/2021 12:19 PM EST Sebastian Hadley MD PATHOLOGY/CYTOLOGY O RDERABLES [facility] [place] [address] * Flow Cytometry Report (06/14/2021 12:19 PM EST) Flow Cytometry Report [id number] ? Location: 4T; EA13; A The signing pathologist has (i) examined the relevant preparation(s) for the specimen(s) and (ii) rendered or confirmed the diagnosis(es). . ?Flow Cytometry DIAGNOSIS BRONCHIAL AVLEOLAR LAVAGE FLUID - FLOW CYTOMETRY: Too few T-cell events were obtained for reliable assessment of the CD4:CD8 ratio. Electronically signed by: ?Rosalino Bunch MD Verified: ??06/14/2021 19:10 ??Hematopathologist Performed at: ??-[facility] [place] [place], [place], [place] DISCUSSION Cell viability in the [id number] low-SSC scatterplot region was 36% as assessed by 7-AAD exclusion. The lymphocyte enriched gate represents about 5% of the total events, and this gated population consists mostly of T-cells (93%) and some non- lymphoid or non-viable events. Only thirteen (13) CD3+ T-cell events are detected, and this is suboptimal for a reliable population analysis. Flow analysis is an ancillary study. A definite diagnosis requires correlation with the morphologic features of this process and if necessary, correlation with other ancillary studies like immunohistochemistr y, enzyme cytochemistry and/or cyto/ molecular genetics. This test was developed and its performance characteristics determined by the Clinical Flow Cytometry Laboratory at [facility]. It has not been cleared or approved by the U.S. Food and Drug Administration. ??The FDA has determined that such clearance or approval is not necessary. ??This test is used for clinical purposes. ??It should not be regarded as investigational or for research. This laboratory is certified under the Clinical Laboratory Improvement Act of 1988 (CLIA) as qualified to perform high complexity clinical laboratory testing. SPECIMEN PROCESSING [id number] Cells for immunophenotypic analysis were derived from bronchial alveolar lavage fluid. CD45 vs side scatter gating was utilized to identify a lymphocyte analysis region that comprises approximately 5% of all cells. The following markers were assessed: CD3, CD4, CD8, CD19, CD45, and CD56. CLINICAL INFORMATION A 65 year old woman who underwent bronchoscopy. Bronchial alveolar lavage fluid was submitted to evaluate the T-cell CD4:CD8 ratio. [facility] 06/14/2021 12:1 9 PM EST Sebastian Hadley MD PATHOLOGY/CYTOLOGY O RDERABLES [facility] [place] [address] * Cell Count, Bronchoalveolar Lavage (06/14/2021 12:19 PM EST) Color BAL Colorless [facility] Appearance, BAL Clear [facility] NUC, BAL Count 2 mcL [facility] Comment: Results may be inaccurate due to presence of many degenerated cells. Unable to perform Differential due to degeneration of cells. Predominant cell = Neutrophils Called by: zeyad, Read back by: Idalmis Lopez, Date/Time:06/14/21 14:52. Corrected from 2 [facility] [NA] on 06/14/21 14:52:59 EST by Nini Oh BAL Not Perf [facility] Comment: Results may be inaccurate due to presence of many degenerated cells. Unable to perform Differential due to degeneration of cells. Predominant cell = Neutrophils Called by: zeyad, Read back by: Idalmis Lopez, Date/Time:06/14/21 14:52. Epithelial Cell BAL Present [facility] Comment:Results may be inacc urate due to presence of many degenerated cells. Total Cells, BAL Not Perf [facility] Comment: Results may be inaccurate due to presence of many degenerated cells. Called by: zeyad, Read back by: Idalmis Lopez, Date/Time:06/14/21 14:42. Bronchial Alveolar Lavage 06/14/2021 12:19 PM EST 06/14/2021 12:31 PM EST Narrative Resulting Agency Comment Spec In Lab Sebastian Hadley MD BODY FLUIDS AND STOO LS ORDERABLES [facility] [place] [address] * Immunophenotyping Flow Cytometry (06/14/2021 12:19 PM EST) Immunophenotyping Flow See Comment [facility] Comment: When completed by the Pathologist, the Flow Cytometry Report ([id number]) will display under the Pathology Results section within [facility]. Other 06/14/2021 12:1 9 PM EST 06/14/2021 12:31 PM EST Narrative Resulting Agency Comment Spec In Lab Sebastian Hadley MD HEMATOLOGY ORDERABLE S Performing Organization Address [facility] Co de Phone Number [facility] [place] [address] * Lower Respiratory Culture Bronchial Alveolar Lavage (06/14/2021 12:17 PM EST) Lower Respiratory Culture Rare mixed bacterial morphotypes suggestive of normal upper respiratory [place] [facility] Gram Stain Rare Neutrophils Rare squamous epithelial cells No microorganisms seen. [facility] Bronchial Alveolar Lavage 06/14/2021 12:17 PM EST 06/14/2021 12:38 PM EST Narrative Resulting Agency Comment Spec In Lab Sebastian Hadley MD MICROBIOLOGY - GENER AL ORDERABLES Performing Organization Address [facility] de Phone Number [facility] [place] [address] * Cytopathology Non-Gynecological (06/14/2021 12:17 PM EST) AP Specimen 06/14/2021 12:1 7 PM EST 06/14/2021 12:31 PM EST Narrative [facility] - 06/14/2021 12:32 PM EST Specimen requisition ordered. ??Separate Pathology report to follow Resulting Agency Comment Spec In Lab Sebastian Hadley MD PATHOLOGY/CYTOLOGY O RDERABLES Performing Organization Address [facility] Co de Phone Number [facility] [place] [address] documented in this encounter Visit Diagnoses Not on filedocumented in this encounter Administered Medications Inactive Administered Medications - up to 3 most recent administrations Medication Order MAR Action Action Date Dose Rate Site lactated ringers infusion 100 mL/hr, Intravenous, CONTINUOUS, Starting on Parisa 06/14/21 at 1045, Until Parisa 06/14/21 at 1356, Endoscopy (Day of Procedure) New Bag 06/14/2021 10:35 AM EST 100 mL/hr 100 mL/hr documented in this encounter Active and Recently Administered Medications Times are shown in EST. Continuous Medication Order 06/12/2021 06/13/2021 06/14/2021 lactated ringers infusion (CANCELED) 100 mL/hr, Intravenous, CONTINUOUS, Starting on Parisa 06/14/21 at 1045, Until Parisa 06/14/21 at 1356, Endoscopy (Day of Procedure) 1035 (New Bag - Prov ider: Allyn Dugan RN) documented in this encounter Care Teams Cycle Touring Guide Relationship Specialty Start Date End Date Marco Antonio-Nini Landrum MD [address] [place] [address] PCP - General 06/26/10 documented as of this encounter
--- OUTSIDE RECORDS SUMMARY | 2024-08-27 00:50 | XMS_ITS | Encounter Summary ---
Author Organization [facility] Address [facility] [address] Care Team Providers Care Training Technician Name Role Phone Nini Machado MD Primary Care Provider [phone] Encounter Details Date Type Department Care Team (Late st Contact Info) Description 10/08/2019 External [place] [phone] Provider, Scanning Social History Tobacco Use Types Packs/Day Years Used Date Smoking Tobacco: Never Assessed Sex and Gender Information Value Date Recorded Sex Assigned at Not on file Gender Identity Not on file Sexual Orientation Not on file documented as of this encounter Plan of Treatment Upcoming Encounters Date Type Department Care Team (Late st Contact Info) Description 08/30/2024 2:00 PM EST Office Visit Hematology/Oncology at [address] [phone] Mars Conley MD [facility] [address] [place] [address] Cailin Marrero APRN [address] [place] [address] DR HEMATOLOGY AND ONCOLOGY [place] [id number] 09/07/2024 9:00 AM EST Office [place] [phone] Raven Alvarado MD [facility] [place] [address] 10/04/2024 1:15 PM EST Office [place] [phone] Feliciano Shay, DO [facility] [place] [address] documented as of this encounter Procedures Procedure Name Priority Date/Time Associated Diagnosis Comments SURGICAL PATHOLOGY SCAN Routine 10/08/2019 documented in this encounter Results * Scan Doc: Surgical Pathology (10/08/2019) Historical Provider MD [facility] MGR SCAN EX T ORDR/RSLT documented in this encounter Visit Diagnoses Not on filedocumented in this encounter Care Teams Training Technician Relationship Specialty Start Date End Date Nini Machado MD [address] [place] [address] [address] [place] [address] PCP - General 06/26/10 documented as of this encounter
--- OUTSIDE RECORDS SUMMARY | 2024-08-27 00:50 | XMS_ITS | Encounter Summary ---
Author Organization Formerly [facility] Address [facility] [place] [address] Care Team Providers Care Warranty Coordinator Name Role Phone Nini Machado MD Primary Care Provider [phone] Reason for Visit * Reason Comments Lung Cancer * Consultation (Urgent) - Closed Specialty Diagnoses / Procedures Referred By Aldo sotelo Referred To Contact Hematology and Oncology Diagnoses Small cell lung cancer Yemi Saleh MD [facility] [place] [address] [facility] Onc [address] [place] [address] Referral ID Status Reason Start Date Expiration Date V isits Requested Visits Authorized [id number] Closed Consult, Test & Treat 06/19/2021 06/19/2022 1 1 Encounter Details Date Type Department Care Team (Late st Contact Info) Description 06/20/2021 2:45 PM EST Office Visit Hematology [place] [address] Juan Fitzpatrick MD [facility] [place] [address] Minna Rascon, BERNARDINO Small cell lung cancer; Small cell carcinoma of lung Social History [...] Sign Reading Time Taken Comments Blood Pressure 154/69 06/20/2021 2:39 PM EST Pulse 67 06/20/2021 2:39 PM EST Temperature 36.1 ??C (97 ??F) 06/20/2021 2:39 PM EST Respiratory Rate 18 06/20/2021 2:39 PM EST Oxygen Saturation 96% 06/20/2021 2:39 PM EST Inhaled Oxygen Concentration - - Weight 58.2 kg (128 lb 3.2 oz) 06/20/2021 2:39 P M EST Height 167.9 cm (5' 6.1) 06/20/2021 2:39 PM EST Body Mass Index 20.63 06/20/2021 2:39 PM EST documented in this encounter Progress Notes * Juan Fitzpatrick MD - 06/20/2021 2:45 PM EST The patient was seen in initial consultation requested by Dr. Saleh for recommendations regarding management of lung cancer. HISTORY OF PRESENT ILLNESS: Stefanie Pina is a 65 y.o. female patient who was found to have a subcarinal node while undergoing CT screening for lung cancer. Bronchoscopy with biopsy established small cell carcinoma. The patient denies any changes in her breathing, she has no dyspnea at rest or on moderate exertion. Her cough has decreased since she stopped smoking more than 2 months ago. No hemoptysis. Except for increased anxiety after the cancer diagnosis, she is feeling well. Her appetite is good, no nausea, no difficulty swallowing. Bowel movements are regular for her, with alternating loose stool and constipation, per her report she had a colonoscopy a year and a half ago. She denies recent bleeding or dysuria. The patient denies any fevers. There are no headaches, no numbness, no tingling. She reports some hearing impairment for which she was given hearing aids. History reviewed. No pertinent past medical history. Past Surgical History: Procedure Laterality Date ??? PRO [facility] EBUS GUIDED SAMPL 1/2 NODE STATION/STRUX N/A 06/14/2021 BRONCH, W ENDOBRONCHIAL ULTRASOUND (EBUS) GUIDED SAMPLING, 1/2 NODES (WRVU 4.71) performed by Sebastian Hadley MD at [facility] ENDOSCOPY ??? PRO BRONCHOSCOPY, DIAGNOSTIC W LAVAGE N/A 06/14/2021 BRONCHOSCOPY, RIGID OR FLEXIBLE, WITH BRONCHIAL ALVEOLAR LAVAGE (WRVU 2.88) performed by Sebastian Hadley MD at [facility] ENDOSCOPY Allergies Allergen Reactions ??? Aspirin CIS - Anaphylaxis ??? Nitrofurantoin Monohyd/M-Cryst Other reaction(s): hands tingling, pins and needles, face swollen. ??? Nsaids (Non-Steroidal Anti-Inflammatory Drug) Other reaction(s): Shock / Unconsciousness; ??? Penicillins Other reaction(s): Dermatological problems, e.g., rash, hives; ??? Red Blood Cells Other (See Comments) Antibodies-Difficult to Crossmatch DO NOT REMOVE Please contact the Blood Bank at [phone] for questions. ??? Sulfamethoxazole-Trimethoprim Other reaction(s): Respiratory problems, e.g., wheezing;Dermatological problems, e.g., rash, hives; ??? Methadone Other reaction(s): vomiting ??? Mold Extracts ??? Mushroom Flavor Current Outpatient Medications on File Prior to Visit Medication Sig Dispense Refill ??? hyoscyamine SL (Levsin SL) 0.125 mg Tablet, Sublingual DISSOLVE 1 TABLET UNDER THE TONGUE TWICEDAILY NEEDED ??? dicyclomine (Bentyl) 10 mg Capsule 3 times daily. ??? morphine CR (Ms Contin) 15 mg Tablet Sustained Release 2 times daily. ??? Ventolin HFA 90 mcg/actuation HFA Aerosol Inhaler inhale 2 puffs USING INHALER EVERY 4 HOURS ASNEEDED ??? sertraline (ZOLOFT) 100 mg Tablet daily. ??? salmeteroL (Serevent Diskus) 50 mcg/dose Disk with Device SEREVENT DISKUS 50 MCG/DOSE AEPB ??? cyclobenzaprine (Flexeril) 10 mg Tablet take 1 tablet by mouth every 12 hours if needed for 5 days ??? estradioL (Estrace) 0.01 % (0.1 mg/gram) Cream ESTRACE 0.1 MG/GM CREA ??? EPINEPHrine (EpiPen) 0.3 mg/0.3 mL Auto-Injector EPIPEN 2-GIOVANNA 0.3 MG/0.3ML SOAJ ??? triamcinolone (Kenalog) 0.1 % Ointment TRIAMCINOLONE ACETONIDE 0.1 % OINT ??? predniSONE (Deltasone) 20 mg Tablet TAKE 3 TABLETS BY MOUTH DAILY FOR 3 DAY ??? pravastatin (Pravachol) 20 mg Tablet take 1 tablet by mouth once daily for cholesterol ??? fluticasone propionate (Flonase) 50 mcg/actuation [place], Suspension FLUTICASONE PROPIONATE 50 MCG/ACT SUSP ??? cholecalciferol, Vitamin D3, 25 mcg (1,000 unit) Capsule daily. ??? rOPINIRole (REQUIP) 0.5 mg Tablet take 1 tablet by mouth daily ??? albuteroL (Proventil) 2.5 mg /3 mL (0.083 %) Solution for Nebulization ALBUTEROL SULFATE (2.5 MG/3ML) 0.083% NEBU ??? montelukast (Singulair) 10 mg Tablet daily. ??? calcium carbonate (CALCIUM 500 ORAL) Take by mouth. ??? IPRATROPIUM/ALBUTEROL SULFATE (IPRATROPIUM-ALBUTEROL INHL) ??? fluticasone-salmeterol (ADVAIR DISKUS) 500-50 mcg/dose diskus inhaler ??? Mometasone (NASONEX) 50 mcg/Actuation [place] ??? zafirlukast (ACCOLATE) 20 mg tablet ??? baclofen (LIORESAL) 10 mg tablet ??? esomeprazole (NEXIUM) 40 mg capsule ??? clonAZEpam (KLONOPIN) 0.5 mg tablet ??? chlorproMAZINE (THORAZINE) 100 mg tablet ??? nicotine polacrilex (Commit) 4 mg Lozenge SUCK ON 1 LOZENGE BY MOUTH UP TO EVERY 2 HOURS WHILE AWAKE NEEDED FOR SMOKING CESSATION ??? loratadine (Claritin) 10 mg Tablet as needed. ??? lovastatin (MEVACOR) 20 mg tablet (Patient not taking: Reported on 06/11/2021) ??? NORTRIPTYLINE HCL (NORTRIPTYLINE ORAL) (Patient not taking: Reported on 06/11/2021) No current facility-administered medications on file prior to visit. History reviewed. No pertinent family history. No history of lung cancer. Social History Socioeconomic History ??? Marital status: Spouse name: Not on file ??? Number of children: Not on file ??? Years of education: Not on file ??? Highest education level: Not on file Occupational History ??? Not on file Tobacco Use ??? Smoking status: Former Smoker Packs/day: 1.00 Years: 42.00 Pack years: 42.00 Types: Cigarettes Quit date: 03/11/2021 Years since quittin.2 ??? Smokeless tobacco: Never Used ??? Tobacco comment: vaping several x/day Vaping Use ??? Vaping Use: Every day Substance and Sexual Activity ??? Alcohol use: Never ??? Drug use: Yes Types: Marijuana Comment: occasional use 2-3x/year ??? Sexual activity: [...] Unstable Housing in the Last Year: No REVIEW OF SYSTEMS: See history of the present illness. The rest of the review of systems is negative. PHYSICAL EXAMINATION: Patient Vitals for the past 24 hrs: Temp Pulse Resp BP SpO2 06/20/21 1439 36.1 ??C (97 ??F) 67 18 154/69 96 % Body surface area is 1.65 meters squared. The patient was in no acute distress. Performance status was 1. Oropharynx was clear. Sclerae were anicteric. No significant lymphadenopathy in the cervical, supraclavicular or axillary regions. Chest was with vesicular breath sounds, scattered crackles, no wheezes. Heart was with regular rate and rhythm. Normal S1, S2. Abdomen was soft, nontender, nondistendedwith active bowel sounds. No hepatosplenomegaly. Extremities showed no edema, no calf tenderness. Neurologic exam was grossly nonfocal. Back revealed no tenderness to palpation or percussion. REVIEW OF LABORATORY DATA: Recent Results (from the past 72 hour(s)) POCT Glucose Result Value Ref Range POC Glucose 92 65 - 199 mg/dL Lactate Dehydrogenase Result Value Ref Range LDH 197 110 - 220 unit/L Comprehensive metabolic panel (non-fasting) Result Value Ref Range Glucose Lvl 86 65 - 199 mg/dL BUN 13 8 - 18 mg/dL Creatinine 0.93 0.70 - 1.20 mg/dL Sodium 143 135 - 145 mmol/L Potassium 4.1 3.5 - 5.0 mmol/L Chloride 104 98 - 107 mmol/L CO2 28 22 - 31 mmol/L Anion Gap 11 5 - 15 mmol/L Calcium 9.9 8.5 - 10.5 mg/dL Total Protein 7.4 6.1 - 8.0 g/dL Albumin 4.7 3.2 - 5.2 g/dL AST 11 0 - 30 unit/L ALT 10 0 - 30 unit/L Alk Phos 67 35 - 105 unit/L Total Bilirubin 0.4 0.2 - 1.3 mg/dL Estimated GFR 64 >=60 mL/min/1.73 m?? Hemogram Result Value Ref Range WBC 6.0 4.0 - 9.5 x10(3)/mcL RBC 4.38 4.00 - 5.21 x10(6)/mcL Hemoglobin 13.4 11.7 - 15.5 g/dL Hematocrit 42.1 35.7 - 45.8 % MCV 96.1 (H) 82.6 - 94.4 fL MCH 30.6 27.1 - 32.0 pg MCHC 31.8 31.7 - 35.0 g/dL Platelets 230 145 - 357 x10(3)/mcL RDWSD 44.8 37.0 - 46.0 fL RDWCV 12.7 11.5 - 14.1 % MPV 10.5 7.6 - 12.9 fL nRBC % Auto 0.0 % nRBC Abs Auto 0.000 0.000 - 0.000 x10(3)/mcL Differential, Automated Result Value Ref Range Neutrophils % 64.6 % Neutr Abs (ANC) 3.88 1.70 - 6.10 x10(3)/mcL Lymphocytes % 27.7 % Lymphocytes Abs 1.7 0.9 - 3.2 x10(3)/mcL Monocytes % 5.8 % Monocyte Abs 0.4 0.3 - 0.9 x10(3)/mcL Eosinophils % 0.8 % Eosinophils Abs 0.0 0.0 - 0.4 x10(3)/mcL Basophils % 0.8 % Basophils Abs 0.0 0.0 - 0.1 x10(3)/mcL Immature Gran % 0.30 % Josephine Gran Abs 0.02 0.00 - 0.04 x10(3)/mcL I personally reviewed a PET/CT showing increased metabolic activity in a subcarinal node and hypermetabolic cecal thickening. I personally reviewed brain MRI showing no metastases. Biopsy showed small cell carcinoma. ASSESSMENT AND PLAN: A 65 y.o. female patient with newly diagnosed small-cell lung cancer, limited stage (stage III). I counseled the patient and her family about the results, their implications for the prognosis as wellas the available treatment options. They understand that surgical resection is not recommended. Best results with the possibility of cure may be achieved with a combined-modality treatment of chemotherapy and radiation. The patient understands that despite completing all therapy, she will be at significant risk for recurrence and regular surveillance will be recommended. I reviewed the most-common side effects of chemoradiation, including, but not limited to skin damage, fatigue, difficulty swallowing with the possible need for a feeding tube as well as damage to the lungs requiring oxygen and worsening of his breathing. Injury to the heart and spinal cord are less likely. I also reviewed the side effects of chemotherapy that include, but are not limited to, myelosuppression with risks oflife threatening infections, injection site reactions, hypersensitivity reactions, need for platelet or blood transfusions, fatigue, hair loss, nausea, vomiting, damage to the nerve endings with lossof sensation as well as injury to the lungs, liver, heart and kidneys, the possibility of treatment-related among others. I outlined the rationale for a clinical study evaluating the role of immunotherapy for limited stage small cell lung cancer treated with chemoradiation, [id number]. I discussed the risks, benefits, and uncertainties that are part of this clinical study. She was given written information about the trial. She would like to review it at home and will let us know her decision in a week. We discussed the finding from the PET/CT of the potential bowel lesion, I will arrangefor a direct visualization, the patient had a colonoscopy done at [facility] in the past year and a half. She has already been referred to radiation oncologist. We will plan to begin treatment with carboplatin and etoposide within the next 2 weeks. Cisplatin will not be used because of her hearing difficulties. The patient and her family had numerous questions that were answered to their satisfaction. They agree with the proposed plan for chemoradiation. I advised the patient to call if she develops any fever, shortness of breath, new pain, weakness, bleeding or any other unusual medical symptoms. documented in this encounter Plan of Treatment Upcoming Encounters Date Type Department Care Team (Late st Contact Info) Description 08/30/2024 2:00 PM EST Office Visit Hematology/Oncology at [address] [phone] Mars Conley MD [facility] DR [place] [address] Cailin Marrero SOCK EXAMINER [address] [place] [address] DR HEMATOLOGY AND ONCOLOGY [place], [place] [id number] 09/07/2024 9:00 AM EST Office [place] [phone] Raven Alvarado MD [facility] [place] [address] 10/04/2024 1:15 PM EST [place] [address] Feliciano Shay, [facility] [place] [address] documented as of this encounter Results * Comprehensive metabolic panel (non-fasting) (06/20/2021 2:04 PM EST) [facility] Glucose 86 65 - 199 mg/dL [facility] Comment:Diabetes: >=200 mg/d L plus symptoms Blood Urea Nitrogen 13 8 - 18 mg/dL [facility] Creatinine 0.93 0.70 - 1.20 mg/dL [facility] Sodium 143 135 - 145 mmol/L [facility] Potassium 4.1 3.5 - 5.0 mmol/L [facility] Comment: Please note: ??Patients with WBC >100,000 may have falsely elevated Potassium levels. ??For accurate Potassium quantification in these patients send serum separator tube (gold top) for subsequent determinations. ??Contact the Clinical Chemistry Laboratory if there are any questions. Chloride 104 98 - 107 mmol/L [facility] Carbon Dioxide 28 22 - 31 mmol/L [facility] Anion Gap 11 5 - 15 mmol/L [facility] Calcium 9.9 8.5 - 10.5 mg/dL [facility] Protein, Total 7.4 6.1 - 8.0 g/dL [facility] Albumin 4.7 3.2 - 5.2 g/dL [facility] Aspartate Aminotransferase 11 0 - 30 unit/L [facility] Alanine Aminotransferase 10 0 - 30 unit/L [facility] Alkaline Phosphatase 67 35 - 105 unit/L [facility] Bilirubin, Total 0.4 0.2 - 1.3 mg/dL [facility] Est Glomerular Filtration Rate 64 >=60 mL/min/1. 73 m?? [facility] Comment: This patient? s estimated glomerular filtration rate (eGFR) is between 64 mL/min/1.73 m2 (patients with less muscle mass) and 75 mL/min/1.73 m2 (patients with more muscle mass) [...] and symptoms in addition to eGFR. Blood 06/20/2021 2:04 PM EST 06/20/2021 2:17 PM EST Narrative Resulting Agency Comment Spec In Lab Minna Rascon SOCK EXAMINER CHEMISTRY ORDERABL ES [facility] [place] [address] * Lactate Dehydrogenase (06/20/2021 2:04 PM EST) Lactate Dehydrogenase 197 110 - 220 unit/L [facility] Blood 06/20/2021 2:04 PM EST 06/20/2021 2:17 PM EST Narrative Resulting Agency Comment Spec In Lab Minna Rascon SOCK EXAMINER CHEMISTRY ORDERABL ES [facility] [place] [address] documented in this encounter Visit Diagnoses Diagnosis Small cell lung cancer Malignant neoplasm of bronchus and lung, unspecified site Small cell carcinoma of lung Malignant neoplasm of bronchus and lung, unspecified site documented in this encounter Care Teams Warranty Coordinator Relationship Specialty Start Date End Date Nini Machado MD [address] [facility] [address] [place] [address] PCP - General 06/26/10 documented as of this encounter
--- OUTSIDE RECORDS SUMMARY | 2024-08-27 00:50 | XMS_ITS | Encounter Summary ---
Author Organization [facility] [place] [address] Care Team Providers Care Professor Of Musicology Name Role Phone Nini Machado MD Primary Care Provider Reason for Referral * Diagnostic Test (Routine) - Closed Specialty Diagnoses / Procedures Referred By Contac t Referred To Contact Radiology Diagnoses History of tobacco use Procedures CT Chest Screening Lung Cancer Nini Machado MD [address] [address] [facility] [place] [address] Referral ID Status Reason Start Date Expiration Date V isits Requested Visits Authorized [id number] Closed Specialty Service Requested 04/16/2021 10/14/2022 1 1 Reason for Visit * Diagnostic Test (Routine) - Closed Specialty Diagnoses / Procedures Referred By Contac t Referred To Contact Radiology Diagnoses History of tobacco use Procedures CT Chest Screening Lung Cancer Nini Machado MD [address] [address] [facility] [place] [address] Referral ID Status Reason Start Date Expiration Date V isits Requested Visits Authorized [id number] Closed Specialty Service Requested 04/16/2021 10/14/2022 1 1 Encounter Details Date Type Department Care Team (Late st Contact Info) Description 05/28/2021 10:00 AM EDT - 05/28/2021 11:59 PM EDT Hospital [place] [address] Nini Machado MD [address] [place] [address] 3 [place] [address] History of tobacco use Discharge Disposition: Home Social History Tobacco Use [...] THE TONGUE TWICE DAILY NEEDED 05/24/2021 08/06/2021 sertraline (ZOLOFT) 100 mg Tablet daily. [...] PM EST Office Visit Hematology/Oncology at [address] [phone] Mars Conley MD [facility] DR HEMAT[place]Y [place] [address] Cailin Marrero APRN [address] [place] [address] DR [place]EMAT[place]Y [place] [address] 09/07/2024 9:00 AM EST Office [place] [phone] Raven Alvarado MD [facility] [place] [address] 10/04/2024 1:15 PM EST Office [place] [phone] Feliciano Shay, [facility] [place] [address] documented as of this encounter Procedures Procedure Name Priority Date/Time Associated Diagnosis Comments CT CHEST SCREENING LUNG CANCER Routine 05/28/2021 10:15 AM EDT History of tobacco use documented in this encounter Results * CT Chest Screening Lung Cancer (05/28/2021 10:15 AM EDT) Anatomical Region Laterality Modality Computed Tomogra phy 05/28/2021 10:3 1 AM EDT Impressions 05/31/2021 9:08 AM EDT Lung-RADS 2 (Benign appearance) RECOMMENDATION: Return to CT screening in one year S: Interval subcarinal lymph node enlargement versus new subcarinal mass, indeterminate etiology. Appears amenable to transbronchoscopic biopsy. Referral to vessel scrapper helper advised. Thank you for letting us participate in the care of this patient. ??If you are a health care provider and have any questions regarding this report, please contact the number below. ??For patients who have questions please contact the health director of health care marketing that requested your imaging first. ? Electronically signed by: Awilda Keating MD, [facility] ([phone]), at 05/31/2021 9:08 AM Narrative 05/31/2021 9:08 AM EDT EXAMINATION: CT CHEST SCREENING LUNG CANCER CLINICAL HISTORY: Asymptomatic but at high risk for lung cancer TECHNIQUE: Noncontrast, low-dose chest CT (LDCT) per [facility] lung cancer screening protocol. COMPARISON: 04/14/2020. FINDINGS: Lung-RADS Lung screening specific: Unchanged calcified granulomata in the right lung on series 5 image 229 and in the left lung on series 5 image 304 (category 1-negative finding). Unchanged sub-4 mm nodules in the right lung on series 5 images 74, 218, and 265 and in left lung on series 5 images 149, 173, and 196 (category 2-benign appearance). Potentially significant incidental findings: Enlarged subcarinal lymph node versus new subcarinal mass, previously 16 x 8 mm on series 3 image 50 of prior, now 32 x 19 mm on series 3 image 52. Other mediastinal lymph nodes unchanged. Other incidental findings: Diffuse mild bilateral centrilobular emphysema and mild coronary atherosclerotic calcification, as before. Small amount of adherent mucus in the trachea. Procedure Note Awilda Keating MD - 05/31/2021 EXAMINATION: CT CHEST SCREENING LUNG CANCER CLINICAL HISTORY: Asymptomatic but at high risk for lung cancer TECHNIQUE: Noncontrast, low-dose chest CT (LDCT) per [facility] lung cancerscreening protocol. COMPARISON: 04/14/2020. FINDINGS: Lung-RADS Lung screening specific: Unchanged calcified granulomata in the right lung on series 5 image 229and in the left lung on series 5 image 304 (category 1-negative finding). Unchanged sub-4 mm nodules in the right lung on series 5 images 74, 218,and 265 and in left lung on series 5 images 149, 173, and 196 (category 2-benign appearance). Potentially significant incidental findings: Enlarged subcarinal lymphnode versus new subcarinal mass, previously 16 x 8 mm on series 3 image 50 ofprior, now 32 x 19 mm on series 3 image 52. Other mediastinal lymph nodesunchanged. Other incidental findings: Diffuse mild bilateral centrilobular emphysemaand mild coronary atherosclerotic calcification, as before. Small amount ofadherent mucus in the trachea. IMPRESSION Lung-RADS 2 (Benign appearance) RECOMMENDATION: Return to CT screening in one year S: Interval subcarinal lymph node enlargement versus new subcarinalmass, indeterminate etiology. Appears amenable to transbronchoscopic biopsy.Referral to vessel scrapper helper advised. Thank you for letting us participate in the care of this patient. If youare a health care provider and have any questions regarding this report,please contact the number below. For patients who have questions please contactthe health director of health care marketing that requested your imaging first. Nini Machado MD IMG CT ORDERABLES documented in this encounter Visit Diagnoses Diagnosis History of tobacco use Personal history of tobacco use, presenting hazards to health documented in this encounter Care Teams Professor Of Musicology Relationship Specialty Start Date End Date Nini Machado MD [address] [place] [address] PCP - General 06/26/10 documented as of this encounter
--- OUTSIDE RECORDS SUMMARY | 2024-08-27 00:50 | XMS_ITS | Encounter Summary ---
Author Organization [facility] Address [facility] [place] [address] Care Team Providers Care Windows Admin Name Role Phone Nini Machado MD Primary Care Provider [phone] Encounter Details Date Type Department Care Team (Late st Contact Info) Description 06/05/2021 [place] [phone] Leandra Cantrell Social History Tobacco Use Types Packs/Day Years [...] PM EST Office Visit Hematology/Oncology at [address] [phone] Mars Conley MD [facility] DR [place]EMAT[place] [address] Cailin Marrero APRN [address] [place] [address] DR HEMATOLOGY AND ONCOLOGY [place], [place] [address] 09/07/2024 9:00 AM EST Office [place] [address] Raven Alvarado MD [facility] [place] [address] 10/04/2024 1:15 PM EST Office [place] [phone] Feliciano Shay, [facility] [place] [address] documented as of this encounter Visit Diagnoses Not on filedocumented in this encounter Care Teams Windows Admin Relationship Specialty Start Date End Date Nini Machado MD [address] [address] PCP - General 06/26/10 documented as of this encounter
--- OUTSIDE RECORDS SUMMARY | 2024-08-27 00:50 | XMS_ITS | Encounter Summary ---
Author Organization [facility] Address [facility] [place] [address] Care Team Providers Care Tin Tie Machine Operator Automatic Name Role Phone Nini Machado MD Primary Care Provider Encounter Details Date Type Department Care Team (Late Contact Info) Description 05/16/2021 [facility] Only [facility] [address] [place] [address] Nini Machado MD [address] [phone] Social History Tobacco Use Types Packs/Day Years Used Date Smoking Tobacco: Every Day Cigarettes 1 42 Sex and Gender Information Value Date Recorded Sex Assigned at Not on file Gender Identity Not on file Sexual Orientation Not on file documented as of this encounter Plan of Treatment Upcoming Encounters Date Type Department Care Team (Late Contact Info) Description 08/30/2024 2:00 PM EST Office Visit Hematology/Oncology at [address] [phone] Mars Conley MD [facility] DR [place] [address] Cailin Marrero APRN [address] [place] [address] DR HEMATOLOGY AND ONCOLOGY [place], [place] [id number] 09/07/2024 9:00 AM EST Office [place] [address] Raven Alvarado MD [facility] [place] [address] 10/04/2024 1:15 PM EST Office [place] [address] Feliciano Shay, [facility] DR NEUROLOGY DEPT [place], [place] [phone] documented as of this encounter Procedures Procedure Name Priority Date/Time Associated Diagnosis Comments MAMMO SCREENING CAD BILATERAL Routine 05/16/2021 10:41 AM EDT documented in this encounter Results * Mammo Screening Cad Bilateral (05/16/2021 10:41 AM EDT) PT CLASS O RAD ADMITDTTM DH RAD PT RAD INFO [id number]^YO ADRIANA-GOMEZ^NINI RAD [facility]^SCREEN MAMMO BL INCLUDES CAD^RIS RAD Anatomical Region Laterality Modality Breast Bilateral Mammography Impressions 05/17/2021 10:54 AM EDT BI-RADS ??category 1: negative- No mammographic [...] who have questions please contact the health school childcare attendant that requested your imaging first. ? Narrative 05/17/2021 10:54 AM EDT EXAMINATION: BREAST SCREEN TOMOSYNTHESIS BI, SCREEN MAMMO BL INCLUDES CAD CLINICAL HISTORY: Screening mammogram for malignant neoplasm of breast Family history [...] density. Procedure Note Antoni Ramirez MD - 05/17/2021 EXAMINATION: BREAST SCREEN TOMOSYNTHESIS BI, SCREEN MAMMO BL INCLUDESCAD CLINICAL HISTORY: Screening mammogram for malignant neoplasm of breast Family history [...] patients who have questions please contactthe health school childcare attendant that requested your imaging first. Nini Machado MD IMG MAMMO ORDERABLES documented in this encounter Visit Diagnoses Not on filedocumented in this encounter Care Teams Tin Tie Machine Operator Automatic Relationship Specialty Start Date End Date Nini Machado MD [address] [place] [address] PCP - General 06/26/10 documented as of this encounter
--- OUTSIDE RECORDS SUMMARY | 2024-08-27 00:50 | XMS_ITS | Encounter Summary ---
Author Organization [facility] Address [facility] [place] [address] Care Team Providers Care Call Or Contact Centre Coach Name Role Phone Nini Machado MD Primary Care Provider Encounter Details Date Type Department Care Team (Late st Contact Info) Description 06/08/2021 Orders [place] [phone] Jeanne Gallardo, RN Social History Tobacco Use Types Packs/Day [...] PM EST Office Visit Hematology/Oncology at [address] [phone] Mars Conley MD [facility] DR [place] [address] Cailin Marrero APRN [address] [place] [address] DR HEMATOLOGY AND ONCOLOGY [place], [place] [address] 09/07/2024 9:00 AM EST Office [place] [address] Raven Alvarado MD [facility] [place] [address] 10/04/2024 1:15 PM EST [place] [phone] Feliciano Shay, [facility] [place] [address] documented as of this encounter Visit Diagnoses Not on filedocumented in this encounter Care Teams Call Or Contact Centre Coach Relationship Specialty Start Date End Date Marco Antonio-Nini Landrum MD [address] [address] PCP - General 06/26/10 documented as of this encounter
--- OUTSIDE RECORDS SUMMARY | 2024-08-27 00:50 | XMS_ITS | Encounter Summary ---
Author Organization [facility] [place] [address] Care Team Providers Care Charging Manipulator Name Role Phone Nini Machado MD Primary Care Provider [phone] Reason for Visit * Diagnostic Test (Routine) - Closed Specialty Diagnoses / Procedures Referred By Aldo sotelo Referred To Contact Radiology Diagnoses Mediastinal adenopathy Procedures NM PET CT Skull Base to Mid-thigh Sebastian Hadley MD [facility] [place] [place] [address] [place] [address] Referral ID Status Reason Start Date Expiration Date V isits Requested Visits Authorized [id number] Closed Specialty Service Requested 06/01/2021 11/30/2022 1 1 Encounter Details Date Type Department Care Team (Latest Contact Info) Description 06/18/2021 9:56 AM EST - 06/18/2021 11:59 PM [facility] Encounter [place] [address] Sebastian Hadley MD [facility] [place] [address] Discharge Disposition: Home Social History [...] PM EST Office Visit Hematology/Oncology at [address] [phone] Mars Conley MD [facility] DR [place] [address] Cailin Marrero APRN [address] [place] [address] DR HEMATOLOGY [place] [address] 09/07/2024 9:00 AM EST Office [place] [phone] Raven Alvarado MD [facility] [place] [address] 10/04/2024 1:15 PM EST Office [place] [phone] Feliciano Shay, [facility] [place] [address] documented as of this encounter Procedures Procedure Name Priority Date/Time Associated Diagnosis Comments NM PET CT SKULL BASE TO MID-THIGH ([facility]) Routine 06/18/2021 11:57 AM EST Mediastinal adenopathy POCT GLUCOSE Routine 06/18/2021 10:35 AM EST documented in this encounter Results * POCT Glucose (06/18/2021 10:35 AM EST) Glucose, POC 92 65 - 199 mg/dL [facility] Comment: Supplemental ranges: <140 mg/dL before meals <180 mg/dL all other times of the day Blood 06/18/2021 10:3 5 AM EST 06/18/2021 10:35 AM EST Sebastian Hadley MD POINT OF CARE TEST O RDERABLES [facility] [place] [address] documented in this encounter Visit Diagnoses Not on filedocumented in this encounter Care Teams Charging Manipulator Relationship Specialty Start Date End Date Marco Antonio-Nini Landrum MD [address] [address] PCP - General 06/26/10 documented as of this encounter
--- OUTSIDE RECORDS SUMMARY | 2024-08-27 00:50 | XMS_ITS | Encounter Summary ---
Author Organization [facility] Address [facility] [place] [address] Care Team Providers Care Assistant Pastry Chef Name Role Phone Nini Machado MD Primary Care Provider Encounter Details Date Type Department Care Team (Late Contact Info) Description 05/16/2021 [facility] Only [facility] [address] [place] [address] Nini Machado MD [address] [phone] Social History Tobacco Use Types Packs/Day Years [...] PM EST Office Visit Hematology/Oncology at [address] [phone] Mars Conley MD [facility] DR [place] [address] Cailin Marrero APRN [address] [place] [address] DR HEMATOLOGY AND ONCOLOGY [place], [place] [phone] 09/07/2024 9:00 AM EST Office [place] [phone] Raven Alvarado MD [facility] [place] [address] 10/04/2024 1:15 PM EST [place] [address] Feliciano Shay, [facility] NEUROLOGY DEPT [place], [place] [phone] documented as of this encounter Procedures Procedure Name Priority Date/Time Associated Diagnosis Comments MAMMO SCREENING CAD AND MICHELL BILATERAL Routine 05/16/2021 10:41 AM EDT documented in this encounter Results * Mammo Screening Cad and Michell Bilateral (05/16/2021 10:41 AM EDT) PT CLASS O DH RAD ADMITDTTM DH RAD PT RAD INFO [id number]^YOUNG- GOMEZ^NINI RAD EXAM DESC [facility]^BREAST SCREEN TOMOSYNTHESIS BI^RIS [...] questions please contact the health director of critical care that requested your imaging first. ? Electronically signed by: Antoni Ramirez MD, [facility] ([phone]), at 05/17/2021 10:54 AM Narrative 05/17/2021 10:54 AM EDT EXAMINATION: BREAST [...] have questions please contactthe health director of critical care that requested your imaging first. Nini Machado MD IMG MAMMO ORDERABLES documented in this encounter Visit Diagnoses Not on filedocumented in this encounter Care Teams Assistant Pastry Chef Relationship Specialty Start Date End Date Nini Machado MD [address] [place] [address] PCP - General 06/26/10 documented as of this encounter
--- OUTSIDE RECORDS SUMMARY | 2024-08-27 00:50 | XMS_ITS | Encounter Summary ---
Author Organization [facility] Address [facility] [place] [address] Care Team Providers Care Restaurant Crew Name Role Phone Nini Machado MD Primary Care Provider [phone] Encounter Details Date Type Department Care Team (Late st Contact Info) Description 06/05/2021 [place] [phone] Nohelia Kulkarni Social History Tobacco Use Types Packs/Day Years [...] 2:00 PM EST Office Visit Hematology/Oncology at [address] [phone] Mars Conley MD [facility] [address] [place] [address] Cailin Marrero APRN [address] [place] [address] DR HEMATOLOGY AND ONCOLOGY [place], [place] [address] 09/07/2024 9:00 AM EST Office [place] [phone] Raven Alvarado MD [facility] [place] [address] 10/04/2024 1:15 PM EST Office [place] [phone] Feliciano Shay, [facility] [place] [address] documented as of this encounter Visit Diagnoses Not on filedocumented in this encounter Care Teams Restaurant Crew Relationship Specialty Start Date End Date Marco Antonio-Nini Landrum MD [address] [address] PCP - General 06/26/10 documented as of this encounter
--- OUTSIDE RECORDS SUMMARY | 2024-08-27 00:50 | XMS_ITS | Encounter Summary ---
Author Organization [facility] Address [facility] [place] [address] Care Team Providers Care Runner Out Name Role Phone Nini Machado MD Primary Care Provider [phone] Encounter Details Date Type Department Care Team (Late st Contact Info) Description 06/14/2021 11:00 AM EST - 06/14/2021 12:00 PM EST [place] [address] Backer, Sebastian Mullen MD [facility] [place] [address] BRONCH, W ENDOBRONCHIAL ULTRASOUND (EBUS) GUIDED SAMPLING, 1/2 NODES (WRVU 4.46) Social History Tobacco Use Types Packs/Day Years [...] Sign Reading Time Taken Comments Blood Pressure 127/54 06/14/2021 10:22 AM EST Pulse 68 06/14/2021 10:22 AM EST Temperature 36.6 ??C (97.8 ??F) 06/14/2021 10:[address] Respiratory Rate - - Oxygen Saturation 99% 06/14/2021 10:22 AM EST Inhaled Oxygen Concentration - - [...] your doctor if you can take an fiet-dvo-ndjwdlu medicine. ?? If you think your pain [...] more? Visit our health information library at [email or web address]. You can also view health information on [employer], your personal patient account. Log in or sign uptoday. Enter S288 in the search box to learn more about Bronchoscopy: What to Expect at Home. Current as of: January 10, 2019 Content Version: 12.2 ?? [id number] [employer]. Care instructions adapted under license by [facility]. If you have questions about a medical condition or this instruction, always ask your healthcare professional. [employer] disclaims any warranty or liability for your [...] Section of Pulmonary & Critical Care Pager: [phone] documented in this encounter Miscellaneous Notes * [...] (4 lymph node stations): The Olympus EBUS ([id number]) scope was inserted, lymph node inspection undertaken [...] station 4L was <5 mm. Therapeutic Suctioning (87612): At least 15-20 min of operative time [...] Section of Pulmonary & Critical Care Pager: [phone] documented in this encounter Plan of Treatment Upcoming Encounters Date Type Department Care Team (Late st Contact Info) Description 08/30/2024 2:00 PM EST Office Visit Hematology/Oncology at [address] [address] Mars Conley MD [facility] DR HEMAT[place] [address] Cailin Marrero APRN [address] [place] [address] DR HEMATOLOGY [place] [address] 09/07/2024 9:00 AM EST Office [place] [phone] Raven Alvarado MD [facility] [place] [address] 10/04/2024 1:15 PM EST [place] [phone] Feliciano Shay, [facility] [place] [address] documented as of this encounter Procedures Procedure Name Priority Date/Time Associated Diagnosis Comments NON-PNEUMATIC SYSTEM CONVEYOR OPERATOR FINAL REPORT Routine 06/14/2021 12:56 PM EST NON-PNEUMATIC SYSTEM CONVEYOR OPERATOR FINAL REPORT Routine 06/14/2021 12:56 PM EST NON-PNEUMATIC SYSTEM CONVEYOR OPERATOR FINAL REPORT Routine 06/14/2021 12:56 PM EST NON-PNEUMATIC SYSTEM CONVEYOR OPERATOR FINAL REPORT Routine 06/14/2021 12:56 PM EST [...] CYTOMETRY (BLOOD) Routine 06/14/2021 12:19 PM EST NON-PNEUMATIC SYSTEM CONVEYOR OPERATOR FINAL REPORT Routine 06/14/2021 12:19 PM EST FLOW CYTOMETRY REPORT Routine 06/14/2021 12:19 PM EST HC SPUTUM CULTURE Routine 06/14/2021 12: 17 PM EST CYTOPATHOLOGY NON-GYNECOLOGICAL Routine 06/14/2021 12:17 PM EST Bronchoscopy, Diagnostic W Lavage ([id number]) 06/14/2021 11:55 AM EST Mediastinal adenopathy [facility]bus Guided Sampl 1/2 Node Station/Strux (15500) 06/14/2021 11:55 AM EST Mediastinal adenopathy documented in this encounter Results * Non-Staff Psychologist Final Report (06/14/2021 12:56 PM EST) Diagnosis Discussion [id number] ? Location: 4T; EA13; A The signing pathologist has (i) examined the relevant preparation(s) for the specimen(s) and (ii) rendered or confirmed the diagnosis(es). . ? Non-Staff Psychologist Final DIAGNOSIS Positive for Malignancy Electronically signed by: ?Marek Pickering MD Verified: ??06/15/2021 19:27 ??Pathologist Performed at: ??-[facility] Dept. of Pathology, [place], [place] DISCUSSION Lymph node, station 7 (EBUS-guided [...] Cell Block 1. 06/15/2021 7:27 PM EST [facility] LYMPH NODE SPECIMEN / Unknown 06/14/2021 12:56 PM EST 06/14/2021 12:56 PM EST Sebastian Hadley MD PATHOLOGY/CYTOLOGY O BRANDIN [facility] [place] [address] * Non-Staff Psychologist Final Report (06/14/2021 12:56 PM EST) Diagnosis Discussion [id number] ? Location: 4T; EA13; A The signing pathologist has (i) examined the relevant preparation(s) for the specimen(s) and (ii) rendered or confirmed the diagnosis(es). . ? Non-Staff Psychologist Final DIAGNOSIS Negative for Malignancy Electronically signed by: ?Ladan PALENCIA, Marek Mullen Verified: ??06/15/2021 19:23 ??Pathologist Performed at: ??-[facility] Dept. of Pathology, [place], [place] DISCUSSION Lymph node, station 11R (EBUS-guided [...] Cell Block 1. 06/15/2021 7:23 PM EST [facility] LYMPH NODE SPECIMEN / Unknown 06/14/2021 12:56 PM EST 06/14/2021 12:56 PM EST Sebastian Hadley MD PATHOLOGY/CYTOLOGY O RDERABLES [facility] [place] [address] * Non-Staff Psychologist Final Report (06/14/2021 12:56 PM EST) Diagnosis Discussion [id number] ? Location: 4T; EA13; A The signing pathologist has (i) examined the relevant preparation(s) for the specimen(s) and (ii) rendered or confirmed the diagnosis(es). . ? Non-Staff Psychologist Final DIAGNOSIS Negative for Malignancy Electronically signed by: ?Ladan PALENCIA, Marek Mullen Verified: ??06/15/2021 19:22 ??Pathologist Performed at: ??-[facility] Dept. of Pathology, [place], [place] DISCUSSION Lymph node, station 4R (EBUS-guided [...] Cell Block 1. 06/15/2021 7:22 PM EST [facility] LYMPH NODE SPECIMEN / Unknown 06/14/2021 12:56 PM EST 06/14/2021 12:56 PM EST Sebastian Hadley MD PATHOLOGY/CYTOLOGY O RDERABLES [facility] [place] [address] * Non-Staff Psychologist Final Report (06/14/2021 12:56 PM EST) Diagnosis Discussion [id number] ? Location: 4T; EA13; A The signing pathologist has (i) examined the relevant preparation(s) for the specimen(s) and (ii) rendered or confirmed the diagnosis(es). . ? Non-Staff Psychologist Final DIAGNOSIS Negative for Malignancy Electronically signed by: ?Ladan PALENCIA, Marek Mullen Verified: ??06/15/2021 19:22 ??Pathologist Performed at: ??-[facility] Dept. of Pathology, [place], [place] DISCUSSION Lymph node, station 11L (EBUS-guided [...] Cell Block 1. 06/15/2021 7:22 PM EST [facility] LYMPH NODE SPECIMEN / Unknown 06/14/2021 12:56 PM EST 06/14/2021 12:56 PM EST Sebastian Hadley MD PATHOLOGY/CYTOLOGY O RDERABLES [facility] [place] [address] * Cytopathology Non-Gynecological (06/14/2021 12:56 PM EST) AP Specimen 06/14/2021 12:5 6 PM EST 06/14/2021 12:56 PM EST Narrative [facility] - 06/14/2021 12:56 PM EST Specimen requisition ordered. ??Separate Pathology report to follow Sebastian Hadley MD PATHOLOGY/CYTOLOGY O RDERABLES [facility] [place] [address] * Cytopathology Non-Gynecological (06/14/2021 12:56 PM EST) AP Specimen 06/14/2021 12:5 6 PM EST 06/14/2021 12:56 PM EST Narrative [facility] - 06/14/2021 12:56 PM EST Specimen requisition ordered. ??Separate Pathology report to follow Sebastian Hadley MD PATHOLOGY/CYTOLOGY O RDERABLES Performing Organization Address City/[facility]/[place] [address] * Cytopathology Non-Gynecological (06/14/2021 12:56 PM EST) AP Specimen 06/14/2021 12:5 6 PM EST 06/14/2021 12:56 PM EST Narrative [facility] - 06/14/2021 12:56 PM EST Specimen requisition ordered. ??Separate Pathology report to follow Sebastian Hadley MD PATHOLOGY/CYTOLOGY O RDERABLES Performing Organization Address City/[facility]/ZIP Co de Phone Number [facility] [place] [address] * Cytopathology Non-Gynecological (06/14/2021 12:56 PM EST) AP Specimen 06/14/2021 12:5 6 PM EST 06/14/2021 12:56 PM EST Narrative [facility] - 06/14/2021 12:56 PM EST Specimen requisition ordered. ??Separate Pathology report to follow Sebastian Hadley MD PATHOLOGY/CYTOLOGY O RDERABLES [facility] [place] [address] * Flow Cytometry Report (06/14/2021 12:45 PM EST) Flow Cytometry Report [id number] ? Location: 4T; EA13; A The signing [...] MD Verified: ??06/14/2021 19:19 ??Hematopathologist Performed at: ??-[facility] Dept. of Pathology, [place], [place] DISCUSSION Cell viability in the IJ15-gmqchl low-SSC scatterplot region was 82% as assessed [...] by the Clinical Flow Cytometry Laboratory at [facility]. It has not been cleared or approved [...] high complexity clinical laboratory testing. SPECIMEN PROCESSING [id number] Cells for immunophenotypic analysis were derived from [...] an enlarged station 7 mediastinal lymph node. [facility] 06/14/2021 12:4 5 PM EST Sebastian Hadley MD PATHOLOGY/CYTOLOGY O RDERABLES Performing Organization Address City/[facility]/ZIP Co de Phone Number [facility] [place] [address] * Immunophenotyping Flow Cytometry (06/14/2021 12:45 PM EST) Immunophenotyping Flow See Comment [facility] Comment: When completed by the Pathologist, the Flow Cytometry Report ([id number]) will display under the Pathology Results section within [facility]. Other 06/14/2021 12:4 5 PM EST 06/14/2021 1:18 PM EST Narrative Resulting Agency Comment Spec In Lab Sebastian Hadley MD HEMATOLOGY ORDERABLE S Performing Organization Address [facility]/ZIP Co de Phone Number [facility] [place] [address] * Non-Staff Psychologist Final Report (06/14/2021 12:19 PM EST) Diagnosis Discussion [id number] ? Location: 4T; EA13; A The signing pathologist has (i) examined the relevant preparation(s) for the specimen(s) and (ii) rendered or confirmed the diagnosis(es). . ? Non-Staff Psychologist Final DIAGNOSIS Atypical Electronically signed by: ?Abel PALENCIA, Dinesh Verified: ??06/18/2021 17:19 ??Pathologist Performed at: ??-[facility] Dept. of Pathology, [place], [place] DISCUSSION Bronchial alveolar lavage: Rare clusters [...] Cell Block 1. 06/18/2021 5:19 PM EST [facility] BRONCHIAL STRUCTURE / Unknown 06/14/2021 12:19 PM EST 06/14/2021 12:19 PM EST Sebastian Hadley MD PATHOLOGY/CYTOLOGY O RDERABLES [facility] [place] [address] * Flow Cytometry Report (06/14/2021 12:19 PM EST) Flow Cytometry Report [id number] ? Location: 4T; EA13; A The signing pathologist has (i) examined the relevant preparation(s) for the specimen(s) and (ii) rendered or confirmed the diagnosis(es). . ?Flow Cytometry DIAGNOSIS BRONCHIAL AVLEOLAR LAVAGE FLUID - FLOW CYTOMETRY: Too few T-cell events were obtained for reliable assessment of the CD4:CD8 ratio. Electronically signed by: ?Rosalino Bunch MD Verified: ??06/14/2021 19:10 ??Hematopathologist Performed at: ??-[facility] Dept. of Pathology, [place], [place] DISCUSSION Cell viability in the GF19-wfhsxw low-SSC scatterplot region was 36% as assessed [...] by the Clinical Flow Cytometry Laboratory at [facility]. It has not been cleared or approved [...] high complexity clinical laboratory testing. SPECIMEN PROCESSING [id number] Cells for immunophenotypic analysis were derived from [...] submitted to evaluate the T-cell CD4:CD8 ratio. [facility] 06/14/2021 12:1 9 PM EST Sebastian Hadley MD PATHOLOGY/CYTOLOGY O RDERABLES [facility] [place] [address] * Cell Count, Bronchoalveolar Lavage (06/14/2021 12:19 PM EST) Color BAL Colorless [facility] Appearance, BAL Clear [facility] NUC, BAL Count 2 mcL [facility] Comment: Results may be inaccurate due to presence of many degenerated cells. Unable to perform Differential due to degeneration of cells. Predominant cell = Neutrophils Called by: zeyad, Read back by: Idalmis Lopez, Date/Time:06/14/21 14:52. Corrected from 2 [facility] [NA] on 06/14/21 14:52:59 EST by Nini Oh BAL Not Perf [facility] Comment: Results may be inaccurate due to presence of many degenerated cells. Unable to perform Differential due to degeneration of cells. Predominant cell = Neutrophils Called by: zeyad, Read back by: Idalmis Lopez, Date/Time:06/14/21 14:52. Epithelial Cell BAL Present [facility] Comment:Results may be inacc urate due to presence of many degenerated cells. Total Cells, BAL Not Perf [facility] Comment: Results may be inaccurate due to presence of many degenerated cells. Called by: zeyad, Read back by: Idalmis Lopez, Date/Time:06/14/21 14:42. Bronchial Alveolar Lavage 06/14/2021 12:19 PM EST 06/14/2021 12:31 PM EST Narrative Resulting Agency Comment Spec In Lab Sebastian Hadley MD BODY FLUIDS AND STOO LS ORDERABLES Performing Organization Address City/[facility]/ZIP Co de Phone Number [facility] [place] [address] * Immunophenotyping Flow Cytometry (06/14/2021 12:19 PM EST) Immunophenotyping Flow See Comment [facility] Comment: When completed by the Pathologist, the Flow Cytometry Report ([id number]) will display under the Pathology Results section within [facility]. Other 06/14/2021 12:1 9 PM EST 06/14/2021 12:31 PM EST Narrative Resulting Agency Comment Spec In Lab Sebastian Hadley MD HEMATOLOGY ORDERABLE S Performing Organization Address [facility] Co de Phone Number [facility] [place] [address] * Lower Respiratory Culture Bronchial Alveolar Lavage (06/14/2021 12:17 PM EST) Lower Respiratory Culture Rare mixed bacterial morphotypes suggestive of normal upper respiratory angeles [facility] Gram Stain Rare Neutrophils Rare squamous epithelial cells No microorganisms seen. [facility] Bronchial Alveolar Lavage 06/14/2021 12:17 PM EST 06/14/2021 12:38 PM EST Narrative Resulting Agency Comment Spec In Lab Sebastian Hadley MD MICROBIOLOGY - GENER AL ORDERABLES Performing Organization Address [facility] Co de Phone Number [facility] [place] [place] [address] * Cytopathology Non-Gynecological (06/14/2021 12:17 PM EST) AP Specimen 06/14/2021 12:1 7 PM EST 06/14/2021 12:31 PM EST Narrative [facility] - 06/14/2021 12:32 PM EST Specimen requisition ordered. ??Separate Pathology report to follow Resulting Agency Comment Spec In Lab Sebastina Hadley MD PATHOLOGY/CYTOLOGY O RDERABLES Performing Organization Address [facility] Co de Phone Number [facility] [place] [place] [address] documented in this encounter Visit Diagnoses Diagnosis Mediastinal adenopathy Enlargement of lymph nodes documented in this encounter Administered Medications Inactive [...] RN) documented in this encounter Care Teams Runner Out Relationship Specialty Start Date End Date Marco Antonio-Nini Landrum MD [address] [place] [address] PCP - General 06/26/10 documented as of this encounter
--- OUTSIDE RECORDS SUMMARY | 2024-08-27 00:50 | XMS_ITS | Encounter Summary ---
Author Organization [facility] Address [facility] [place] [address] Care Team Providers Care Extrusion Die Template Maker Name Role Phone Nini Machado MD Primary Care Provider [phone] Reason for Visit * Reason Onset Date Comments Other 06/08/2021 blood thinner an d oxygen Encounter Details Date Type Department Care Team (Late st Contact Info) Description 06/08/2021 [place]phone [place] [phone] Jeanne Gallardo RN Other (blood thinner and oxygen) Social History Tobacco Use Types Packs/Day Years Used Date Smoking Tobacco: Every Day Cigarettes 1 42 Sex and Gender Information Value Date Recorded Sex Assigned at Not on file Gender Identity Not on file Sexual Orientation Not on file documented as of this encounter Miscellaneous Notes * Telephone Encounter - Jeanne Gallardo RN - 06/08/2021 11:13 AM EDT I have called pt to confirm if she is still taking the plavix. Pt mentioned to victim advocate that she is currently not on blood thinner, however upon review of the chart noticed that there is Plavix in her med list. Pt confirmed that she is no longer taking plavix. It was discontinued about 15 years ago. I went through pt's med list and confirmed with pt that she is not on any blood thinner anymore. I have also asked pt if she is currently using home oxygen. Pt states she is currently NOT on home oxygen. I have notified pt that I will call her back on 06/13/2021 for a more detailed instructions on her Bronchoscopy. No other questions/ concerns from pt at this time. Jeanne Gallardo RN Department of Pulmonary 5C, [facility] / Pager: [phone] documented in this encounter Plan of Treatment Upcoming Encounters Date Type Department Care Team (Late st Contact Info) Description 08/30/2024 2:00 PM EST Office Visit Hematology/Oncology at [address] [phone] Mars Conley MD [facility] DR HEMATOLOGY [place] [address] Cailin Marrero APRN [address] [place] [address] DR HEMATOLOGY [place] [address] 09/07/2024 9:00 AM EST Office Visit General Surgery at [place] [phone] Raven Alvarado MD [facility] [place] [address] 10/04/2024 1:15 PM EST Office Visit Neurology at [place] [phone] Feliciano Shay, [facility] [place] [address] documented as of this encounter Visit Diagnoses Not on filedocumented in this encounter Care Teams Extrusion Die Template Maker Relationship Specialty Start Date End Date Marco Antonio-Nini Landrum MD [address] [place] [address] PCP - General 06/26/10 documented as of this encounter
--- OUTSIDE RECORDS SUMMARY | 2024-08-27 00:50 | XMS_ITS | Encounter Summary ---
Author Organization [facility] Address [facility] [place] [address] Care Team Providers Care Certified Wellness Program Coordinator Name Role Phone Nini Machado MD Primary Care Provider [phone] Encounter Details Date Type Department Care Team (Late st Contact Info) Description 04/04/2021 Telephone [place] [phone] Jyoti Greenberg Social History Tobacco Use Types Packs/Day Years [...] PM EST Office Visit Hematology/Oncology at [address] [phone] Mars Conley MD [facility] DR HEMATOLOGY [place] [address] Cailin Marrero APRN [address] [place] [address] DR HEMATOLOGY AND ONCOLOGY [place], [place] [address] 09/07/2024 9:00 AM EST Office [place] [phone] Raven Alvarado MD [facility] [place] [address] 10/04/2024 1:15 PM EST Office [place] [phone] Feliciano Shay, [facility] [place] [address] documented as of this encounter Visit Diagnoses Not on filedocumented in this encounter Care Teams Certified Wellness Program Coordinator Relationship Specialty Start Date End Date Marco Antonio-Nini Landrum MD [address] [facility] [place] [address] PCP - General 06/26/10 documented as of this encounter
--- OUTSIDE RECORDS SUMMARY | 2024-08-27 00:50 | XMS_ITS | Encounter Summary ---
Author Organization [facility] Address [facility] [place] [address] Care Team Providers Care Ssis Developer Name Role Phone Nini Machado MD Primary Care Provider [phone] Encounter Details Date Type Department Care Team (Late st Contact Info) Description 06/07/2021 [place] [phone] Nohelia Kulkarni Social History Tobacco Use Types [...] PM EST Office Visit Hematology/Oncology at [address] [phone] Mars Conley MD [facility] DR HEMATOLOGY [place] [address] Cailin Marrero APRN [address] [place] [address] DR HEMATOLOGY AND ONCOLOGY [place], [place] [address] 09/07/2024 9:00 AM EST Office [place] [phone] Raven Alvarado MD [facility] [place] [address] 10/04/2024 1:15 PM EST Office [place] [phone] Feliciano Shay, [facility] [place] [address] documented as of this encounter Visit Diagnoses Not on filedocumented in this encounter Care Teams Ssis Developer Relationship Specialty Start Date End Date Marco Antonio-Nini Landrum MD [address] [address] PCP - General 06/26/10 documented as of this encounter
--- OUTSIDE RECORDS SUMMARY | 2024-08-27 00:50 | XMS_ITS | Encounter Summary ---
Author Organization [facility] [place] [address] Care Team Providers Care Branch Account Executive Name Role Phone Nini Machado MD Primary Care Provider [phone] Reason for Referral * Diagnostic Test (Routine) - Closed Specialty Diagnoses / Procedures Referred By Contac t Referred To Contact Radiology Diagnoses Mediastinal adenopathy Procedures MRI Brain wwo Contrast (Generic) Sebastian Hadley MD [facility] [place] [address] [place] [address] Referral ID Status Reason Start Date Expiration Date V isits Requested Visits Authorized [id number] Closed Specialty Service Requested 06/01/2021 11/30/2022 1 1 Reason for Visit * Diagnostic Test (Routine) - Closed Specialty Diagnoses / Procedures Referred By Contac t Referred To Contact Radiology Diagnoses Mediastinal adenopathy Procedures MRI Brain wwo Contrast (Generic) Sebastian Hadley MD [facility] [place] [address] [place] [address] Referral ID Status Reason Start Date Expiration Date V isits Requested Visits Authorized [id number] Closed Specialty Service Requested 06/01/2021 11/30/2022 1 1 Encounter Details Date Type Department Care Team (Latest Contact Info) Description 06/11/2021 10:01 AM EST - 06/11/2021 11:59 PM EST Hospital Encounter MRI [place] [place] [address] Sebastian Hadley MD [facility] [place] [address] Mediastinal adenopathy Discharge Disposition: Home Social History Tobacco Use Types Packs/Day Years Used Date Smoking Tobacco: Former Cigarettes 1 42 0 03/11/1979 - 03/11/2021 Smokeless Tobacco: Never Sex and Gender Information Value Date Recorded [...] PM EST Office Visit Hematology/Oncology at [address] [phone] Mars Conley MD [facility] DR HEMATOLOGY [place] [address] Cailin Marrero APRN [address] [place] [address] DR [place] [address] 09/07/2024 9:00 AM EST Office [place] [phone] Raven Alvarado MD [facility] [place] [address] 10/04/2024 1:15 PM EST [place] [phone] Feliciano Shay, [facility] [place] [address] documented as of this encounter Procedures Procedure Name Priority Date/Time Associated Diagnosis Comments MRI BRAIN WWO CONTRAST (GENERIC) Routine 06/11/2021 11:31 AM EST Mediastinal adenopathy documented in this encounter Results * MRI Brain wwo Contrast (Generic) (06/11/2021 11:31 AM EST) Anatomical Region Laterality Modality Head Magnetic Resonan ce Impressions 06/11/2021 11:55 AM EST No evidence of intracranial metastatic disease. Thank you for letting us participate in the care of this patient. ??If you are a health care provider and have any questions regarding this report, please contact the number below. ??For patients who have questions please contact the health rn long term care that requested your imaging first. ? Electronically signed by: Anderson Mcnally MD, [facility] ([phone]), at 06/11/2021 11:55 AM Narrative 06/11/2021 11:55 AM EST EXAMINATION: MRI BRAIN WWO CONTRAST (GENERIC) CLINICAL HISTORY: Metastatic disease evaluation - Include more detail below Sub-carinal mass in a high risk patient TECHNIQUE: MRI of the brain was performed before and after the intravenous administration of 12cc Dotarem. COMPARISON: None FINDINGS: The ventricles are normal in size and contour. There is no intracranial mass, mass effect, or shift. There is no mass or abnormal enhancement. 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 There are patchy areas of T2 signal alteration the white matter, a nonspecific finding typically attributed to small vessel ischemic change. Skull base, and pituitary appear normal. No focal marrow signal abnormality identified. Procedure Note Anderson Mcnally MD - 06/11/2021 EXAMINATION: MRI BRAIN WWO CONTRAST (GENERIC) CLINICAL HISTORY: Metastatic disease evaluation - Include more detailbelow Sub-carinal mass in a high risk patient TECHNIQUE: MRI of the brain was performed before and after the intravenousadministration of 12cc Dotarem. COMPARISON: None FINDINGS: The ventricles are normal in size and contour. There is no intracranialmass, mass effect, or shift. There is no mass or abnormal enhancement. 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 There are patchy areas of T2 signal alteration thewhite matter, a nonspecific finding typically attributed to small vesselischemic change. Skull base, and pituitary appear normal. No focal marrow signal abnormality identified. IMPRESSION No evidence of intracranial metastatic disease. Thank you for letting us participate in the care of this patient. If youare a health care provider and have any questions regarding this report,please contact the number below. For patients who have questions please contactthe health rn long term care that requested your imaging first. Electronically signed by: Anderson Mcnally MD, [facility]([phone]), at 06/11/2021 11:55 AM Sebastian Hadley MD IMG MRI ORDERABLES documented in this encounter Visit Diagnoses Diagnosis Mediastinal adenopathy Enlargement of lymph nodes documented in this encounter Administered Medications Inactive Administered Medications - up to 3 most recent administrations Medication Order MAR Action Action Date Dose Rate Site gadoterate meglumine (Dotarem) (0.5 mMol/mL) injection solution 0-100 mL 0-100 mL, Intravenous, ONCE PRN, 1 dose, Starting on Fri06/11/21 at 1112, Until Fri06/11/21 at 1112, Per Protocol, Radiology Contrast, Routine Given 06/11/2021 11:12 AM EST 12 mLs documented in this encounter Care Teams Branch Account Executive Relationship Specialty Start Date End Date Nini Machado MD [address] [address] PCP - General 06/26/10 documented as of this encounter
--- OUTSIDE RECORDS SUMMARY | 2024-08-27 00:50 | XMS_ITS | Encounter Summary ---
Author Organization [facility] [place] [address] Care Team Providers Care Supervisor Loading Name Role Phone Nini Machado MD Primary Care Provider [phone] Reason for Referral * Consultation (Urgent) - Closed Specialty Diagnoses / Procedures Referred By Contac t Referred To Contact Gastroenterology Diagnoses Small cell lung cancer Yemi Saleh MD [facility] [place] [address] [facility] [address] [place] [phone] Referral ID Status Reason Start Date Expiration Date V isits Requested Visits Authorized [id number] Closed Test Only 06/19/2021 06/19/2022 1 1 * Consultation (Urgent) - Duplicate Referral Specialty Diagnoses / Procedures Referred By Contac t Referred To Contact Gastroenterology Diagnoses Small cell lung cancer Yemi Saleh MD [facility] [place] [address] [facility] [address] [place] [phone] Referral ID Status Reason Start Date Expiration Date Visits Requested Visits Authorized [id number] Duplicate Referral Consult, Test & Treat 11/06/19/2022 1 1 * Consultation (Urgent) - Closed Specialty Diagnoses / Procedures Referred By Contac t Referred To Contact Radiation Oncology Diagnoses Small cell lung cancer Yemi Saleh MD [facility] [place] [address] Senthil Muller MD [facility] [place] [address] Referral ID Status Reason Start Date Expiration Date V isits Requested Visits Authorized [id number] Closed Consult, Test & Treat 06/19/2021 06/19/2022 1 1 * Consultation (Urgent) - Closed Specialty Diagnoses / Procedures Referred By Contac t Referred To Contact Hematology and Oncology Diagnoses Small cell lung cancer Yemi Saleh MD [facility] [place] [address] [facility] [address] [place] [address] Referral ID Status Reason Start Date Expiration Date V isits Requested Visits Authorized [id number] Closed Consult, Test & Treat 06/19/2021 06/19/2022 1 1 Encounter Details Date Type Department Care Team (Late st Contact Info) Description 06/19/2021 [place] [phone] Yemi Saleh MD [facility] [place] [address] Social History Tobacco Use Types Packs/Day Years [...] encounter Miscellaneous Notes * Telephone Encounter - Yemi Saleh MD - 06/19/2021 9:26 AM EST I spoke to Ms. Lopez about the results from her recent bronchoscopy as well as the discussion atour CTOP conference. She will need a brain MRI as well as evaluation by med onc / rad onc and GI (juan carlos the FDG avid lesion in the colon). All of her questions were answered and she agrees with the plan. Thoracic - Tumor Board Note Date Presented: 06/19/2021 Presenting Physician: Yemi Saleh MD Diagnosis/Tumor Site: localized small cell CA (though FDG avid colon lesion) Is this Metastatic Disease: No Synopsis of History/HPI: see note 06/11/21 Imaging: PET 06/19/21 Pathology/Histology: 06/14/21 Stage: localized Clinical Data (Exams, Labs, etc.): 06/11/21 Molecular Pathology Results: NA Clinical Trial Availability: pending Options Discussed: needs brain MR, med onc / rad onc, colonoscopy Recommendations: Medical Oncology consult, Radiation Oncology consult and colonoscopy DISCLAIMER: The patient was discussed and the tumor board made recommendations but it is ultimatelyup to the treatment provider(s) and the patient to determine the patient???s care. Yemi Saleh MD, 06/19/2021, 9:32 AM Interventional Pulmonology Section of Pulmonary & Critical Care Pager: [phone] documented in this encounter Plan of Treatment Upcoming Encounters Date Type Department Care Team (Late st Contact Info) Description 08/30/2024 2:00 PM EST Office Visit Hematology/Oncology at [address] [phone] Mars Conley MD [facility] DR [place] [address] Cailin Marrero APRN [address] [place] [address] [place] [address] 09/07/2024 9:00 AM EST Office [place] [phone] Raven Alvarado MD [facility] [place] [address] 10/04/2024 1:15 PM EST Office [place] [phone] Feliciano Shay, [facility] [place] [address] Scheduled Referrals Name Type Priority Associated Diagnoses Order Schedule Referral to Hematology and Oncology Outpatient Referral Routine Small cell lung cancer Ordered: 06/19/2021 Referral to Radiation Oncology Outpatient Referral Routine Small cell lung cancer Ordered: 06/19/2021 Referral to Gastroenterology Outpatient Referral Routine Small cell lung cancer Ordered: 06/19/2021 REFERRAL TO COLONOSCOPY PROCEDURE Outpatient Referral Routine Small cell lung cancer Ordered: 06/19/2021 documented as of this encounter Visit Diagnoses Diagnosis Small cell lung cancer- Primary Malignant neoplasm of bronchus and lung, unspecified site documented in this encounter Care Teams Supervisor Loading Relationship Specialty Start Date End Date Marco Antonio-Nini Landrum MD [address] [address] PCP - General 06/26/10 documented as of this encounter
--- OUTSIDE RECORDS SUMMARY | 2024-08-27 00:50 | XMS_ITS | Encounter Summary ---
Author Organization [facility] [place] [address] Care Team Providers Care Drum Loader And Unloader Name Role Phone Nini Machado MD Primary Care Provider [phone] Encounter Details Date Type Department Care Team (Latest Contact Info) Description 05/09/2021 9:42 PM EDT - 05/09/2021 11:59 PM EDT [place] [address] Discharge Disposition: Home Social History Tobacco Use [...] Take 10 mg by mouth nightly. 01/29/2021 sertraline (ZOLOFT) 100 mg Tablet daily. 11/06/2018 [...] PM EST Office Visit Hematology/Oncology at [address] [phone] Mars Conley MD [facility] DR [place] [address] Cailin Marrero APRN [address] [place] [address] DR HEMATOLOGY [place] [address] 09/07/2024 9:00 AM EST Office Visit [place] [phone] Raven Alvarado MD [facility] [place] [address] 10/04/2024 1:15 PM EST Office [place] [phone] Feliciano Shay, [facility] [place] [address] documented as of this encounter Procedures Procedure Name Priority Date/Time Associated Diagnosis Comments IGA Routine 05/09/2021 10:30 AM EDT documented in this encounter Results * IgA (05/09/2021 10:30 AM EDT) IgA 157 70 - 400 mg/dL [facility] Blood Venous Draw / Unknown 05/09/2021 10:30 AM EDT 05/09/2021 9:22 PM EDT Narrative Resulting Agency Comment Spec In Lab Nini Machado MD CHEMISTRY ORDERABLES [facility] [place] [address] documented in this encounter Visit Diagnoses Not on filedocumented in this encounter Care Teams Drum Loader And Unloader Relationship Specialty Start Date End Date Nini Machado MD [address] [address] PCP - General 06/26/10 documented as of this encounter
--- OUTSIDE RECORDS SUMMARY | 2024-08-27 00:50 | XMS_ITS | Encounter Summary ---
Author Organization [facility] [place] [address] Care Team Providers Care Remote Control Assembler Name Role Phone Nini Machado MD Primary Care Provider Reason for Visit * Consultation (Routine) - Closed Specialty Diagnoses / Procedures Referred By Aldo sotelo Referred To Contact Pulmonology Diagnoses Mediastinal mass Nini Machado MD [address] [place] [address] [facility] [address] [place] [phone] Referral ID Status Reason Start Date Expiration Date Visits Re quested Visits Authorized [id number] Closed 05/31/2021 05/31/2022 1 1 Encounter Details Date Type Department Care Team (Late st Contact Info) Description 06/11/2021 1:00 PM EST Office [place] [address] Yemi Saleh MD [facility] [place] [address] Multiple lung nodules on CT; Mediastinal adenopathy Social History Tobacco Use Types Packs/Day Years Used Date Smoking Tobacco: Former Cigarettes 1 42 0 03/11/1979 - 03/11/2021 Smokeless Tobacco: Never Sex and Gender Information Value Date Recorded Sex Assigned at Not on file Gender Identity Not on file Sexual Orientation Not on file documented as of this encounter Last Filed Vital Signs Vital Sign Reading Time Taken Comments Blood Pressure 143/55 06/11/2021 12:43 PM EST Pulse 73 06/11/2021 12:43 PM EST Temperature 36.4 ??C (97.6 ??F) 06/11/2021 12:[address] Respiratory Rate 18 06/11/2021 12:43 PM EST Oxygen Saturation 96% 06/11/2021 12:43 PM EST Inhaled Oxygen Concentration - - Weight 58.1 kg (128 lb) 06/11/2021 12:43 PM EST Height 165.1 cm (5' 5) 06/11/2021 12:43 PM EST Body Mass Index 21.3 06/11/2021 12:43 PM EST documented in this encounter Progress Notes * Yemi Saleh MD - 06/11/2021 1:00 PM EST Images from the original note were not included. INTERVENTIONAL PULMONOLOGY OUTPATIENT CONSULT NOTE SECTION OF PULMONARY & CRITICAL CARE MEDICINE I have been asked to see Stefanie Pina in consultation at the request of Dr. Machado for evaluation of an abnormal chest CT scan. History of present illness: Stefanie Pina is a 65 y.o. female who was found to have multiple < 6mm nodules on a lung-cancer screening CT in 04/2020. These were followed with a repeat CT in 05/28 showing stability of the nodules, however, interval enlargement of a sub-carinal lymph node. Currently, Ms. Lopez feels ok from a pulmonary standpoint. She denies any shortness of breath or chest discomfort. She does have a mild cough productive of clear sputum that has slightly worsened since she quit smoking 2m ago. She denies any hemoptysis. She also has a post- nasal drip as well as occasional heart burn. She denies any fever, chills, sweats and has gained ~ 9lbs since quitting smoking. She is quite anxious that shemay have lung cancer. Review of systems: ROS otherwise as per HPI and other 12 point ROS is negative. PMH: Depression Hypercholesterolemia No HTN, DM, CAD Up to date on mammo, pap, colonoscopy + influenza and COVID-19 vaccine/booster Current Outpatient Medications: ??? hyoscyamine SL (Levsin SL) 0.125 mg Tablet, Sublingual, DISSOLVE 1 TABLET UNDER THE TONGUE TWICE DAILY NEEDED, Disp: , Rfl: ??? dicyclomine (Bentyl) 10 mg Capsule, 3 times daily., Disp: , Rfl: ??? morphine CR (Ms Contin) 15 mg Tablet Sustained Release, 2 times daily., Disp: , Rfl: ??? Ventolin HFA [...] FOR 3 DAY, Disp: , Rfl: ??? pravastatin (Pravachol) 20 mg Tablet, take 1 tablet by mouth once daily for cholesterol, Disp: , Rfl: ??? fluticasone propionate (Flonase) 50 mcg/actuation [place], Suspension, FLUTICASONE PROPIONATE 50 MCG/ACT SUSP, Disp: , Rfl: ??? cholecalciferol, Vitamin D3, 25 mcg (1,000 unit) Capsule, daily., Disp: , Rfl: ??? rOPINIRole (REQUIP) 0.5 mg Tablet, take 1 tablet by mouth daily, Disp: , Rfl: ??? albuteroL (Proventil) 2.5 mg /3 mL (0.083 %) Solution for Nebulization, ALBUTEROL SULFATE (2.5 MG/3ML) 0.083% NEBU, Disp: , Rfl: ??? montelukast (Singulair) 10 mg Tablet, daily., Disp: , Rfl: ??? calcium carbonate (CALCIUM 500 ORAL), Take by mouth., Disp: , Rfl: ??? IPRATROPIUM/ALBUTEROL SULFATE (IPRATROPIUM-ALBUTEROL INHL), , Disp: , Rfl: ??? fluticasone-salmeterol (ADVAIR DISKUS) 500-50 mcg/dose diskus inhaler, , Disp: , Rfl: ??? Mometasone (NASONEX) 50 mcg/Actuation [place], , Disp: , Rfl: ??? zafirlukast (ACCOLATE) [...] HCL (NORTRIPTYLINE ORAL), , Disp: , Rfl: No current facility-administered medications for this visit. Allergies Allergen Reactions ??? Aspirin CIS - Anaphylaxis ??? Red Blood Cells Other (See Comments) Antibodies-Difficult to Crossmatch DO NOT REMOVE Please contact the Blood Bank at [phone] for questions. ??? Mold Extracts ??? 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 HEENT: EOMI, PERRLA, benign oropharynx without exudate or erythema. Neck: No cervical, submandibular, or supraclavicular LAD. CV: Regular rate and rhythm, normal S1/S2, no m/g/r. Pulm: Clear breath sounds bilaterally. No crackles or wheezes. Nonlabored breathing. Normal, symmetric chest wall expansion. Abd: Soft, nontender to palpation, non-distended with normoactive bowel sounds throughout. Ext: No clubbing or edema. Neuro: Strength and sensation intact. Accessory clinical data: I reviewed the following imaging studies with Stefanie Pina: Chest CT c/w 04/14/20 CT: There has been no change in multiple sub-6mm nodules in the the right and left lungs (many perhaps with interval resolution) There was an enlarged sub-carinal lymphnode. There were no pleural or pericardial effusions. 06/11/21 Brain MR: no evidence of metastatic disease. Assessment & Plan: My assessment at this time is that Ms. Stefanie Pina is a 65 y.o. female who was found to have multiple < 6mm nodules on a lung cancer screening CT as well as an enlarging sub-carinal lymph node. We discussed that the nodules likely do not represent cancer, but rather non-calcified granuloma.I am somewhat concerned about the enlarging sub-carinal node and we discussed that this may represent a cancer, though other diagnoses, such as sarcoidosis are also possible. We discussed options of radiographic surveillance vs trying to obtain a tissue diagnosis with either EBUS or mediastinoscopyas well as the risks and benefits of each. We agreed to proceed with EBUS, and have scheduled this for . She has also been scheduled for a PET-CT, which I think are reasonable. All of her questions were answered and she agrees with the plan. I independently reviewed prior lab tests, radiology tests and images on file, requested prior records, and reviewed old records and summarized them in the record above. This visit, including time spent reviewing images, labs and notes, in addition to face-face time encompassed 60 minutes. Yemi Saleh MD Chief, Section of Pulmonary and Critical Care Medicine [facility] Dept [address] Room [address] [place] [address] Phone Pulm Generic: [phone] [email or web address] Pager #[phone] documented in this encounter Plan of Treatment Upcoming Encounters Date Type Department Care Team (Late st Contact Info) Description 08/30/2024 2:00 PM EST Office Visit Hematology/Oncology at [address] [phone] Mars Conley MD [facility] DR HEMAT[place]Y [place] [address] Cailin Marrero APRN [address] [place] [address] DR HEMATOLOGY [place] [address] 09/07/2024 9:00 AM EST Office Visit General Surgery at [place] [phone] Raven Alvarado MD [facility] [place] [address] 10/04/2024 1:15 PM EST Office Visit Neurology at [place] [phone] Feliciano Shay, [facility] [place] [address] documented as of this encounter Visit Diagnoses Diagnosis Multiple lung nodules on CT Mediastinal adenopathy Enlargement of lymph nodes documented in this encounter Care Teams Remote Control Assembler Relationship Specialty Start Date End Date Marco Antonio-Nini Landrum MD [address] [place] [id number] PCP - General 06/26/10 documented as of this encounter
--- OUTSIDE RECORDS SUMMARY | 2024-08-27 00:50 | XMS_ITS | Encounter Summary ---
Author Organization [place] [address] Care Team Providers Care Obstetrics Gynecology Physician Name Role Phone Nini Machado MD Primary Care Provider [phone] Encounter Details Date Type Department Care Team (Latest Contact Info) Description 06/20/2021 1:45 PM EST - 06/20/2021 11:59 PM EST Hospital Encounter [place]ematology [place] [address] Small cell lung cancer Discharge Disposition: Home Social History Tobacco Use [...] PM EST Office Visit Hematology/Oncology at [address] [phone] Mars Conley MD [facility] DR HEMATOLOGY [place] [address] Cailin Marrero APRN [address] [place] [address] DR HEMATOLOGY [place] [address] 09/07/2024 9:00 AM EST Office [place] [phone] Raven Alvarado MD [facility] [place] [address] 10/04/2024 1:15 PM EST Office [place] [address] Feliciano Shay DO [facility] [place] [address] documented as of this encounter Procedures Procedure Name Priority Date/Time Associated Diagnosis Comments HEMOGRAM STAT 06/20/2021 2:04 PM EST Small cell lung cancer DIFFERENTIAL, AUTOMATED STAT 06/20/2021 2:04 PM EST Small cell lung cancer HC CBC,PLT & AUTO DIFF STAT 2:04 PM EST Small cell lung cancer HC LACTIC DEHYDROGENASE STAT 06/20/2021 2:04 PM EST Small cell lung cancer COMPREHENSIVE METABOLIC PANEL STAT 06/20/2021 2:04 PM EST Small cell lung cancer documented in this encounter Results * Differential, Automated (06/20/2021 2:04 PM EST) Neutrophil % 64.6 % [facility] Neutrophil Absolute 3.88 1.70 - 6.10 x10(3)/[facility] Lymph % 27.7 % [facility] Lymphocytes Abs 1.7 0.9 - 3.2 x10(3)/[facility] Monocyte % 5.8 % [facility] Monocyte Abs 0.4 0.3 - 0.9 x10(3)/[facility] Eos % 0.8 % [facility] Eosinophils Abs 0.0 0.0 - 0.4 x10(3)/[facility] Basophil % 0.8 % [facility] Baso Absolute 0.0 0.0 - 0.1 x10(3)/[facility] LAB[facility] Immature Gran % 0.30 % [facility] Comment: Immature granulocytes(IG's)percentage and absolute count will include metamyelocytes, myelocytes, and promyelocytes. Blood smears from CBCs yielding IG's will be scanned manually for concordance. If this scan disagrees with the automated IG or if promyelocytes are noted, a manual differential will be performed. Immature Gran Absolute 0.02 0.00 - 0.04 x10(3)/[facility] Blood 06/20/2021 2:04 PM EST 06/20/2021 2:17 PM EST Narrative Resulting Agency Comment Spec In Lab Minna Rascon SAFETY REPRESENTATIVE HEMATOLOGY ORDERAB LES [facility] [place] [address] * (ABNORMAL) Hemogram (06/20/2021 2:04 PM EST) [facility] White Blood Cell 6.0 4.0 - 9.5 x10(3)/[facility] Red Blood Cell 4.38 4.00 - 5.21 x10(6)/[facility] Hemoglobin 13.4 11.7 - 15.5 g/dL [facility] Hematocrit 42.1 35.7 - 45.8 % [facility] Mean Cell Volume 96.1(H) 82.6 - 94.4 fL [facility] Mean Cell Hemoglobin 30.6 27.1 - 32.0 pg [facility] Mean Cell Hemoglobin Concentration 31.8 31.7 - 35.0 g/dL [facility] Platelet 230 145 - 357 x10(3)/[facility] RDW Standard Deviation 44.8 37.0 - 46.0 [facility] RDW coefficient of variation 12.7 11.5 - 14.1 % [facility] Mean Platelet Volume 10.5 7.6 - 12.9 [facility] NRBC% auto 0.0 % [facility] NRBC Absolute 0.000 0.000 - 0.000 x10(3)/[facility] Blood 06/20/2021 2:04 PM EST 06/20/2021 2:17 PM EST Narrative Resulting Agency Comment Spec In Lab Minna Rascon SAFETY REPRESENTATIVE HEMATOLOGY ORDERAB LES [facility] [place] [address] * Comprehensive metabolic panel (non-fasting) (06/20/2021 2:04 PM EST) [facility] Glucose 86 65 - 199 mg/dL [facility] Comment:Diabetes: >=200 mg/d L plus symptoms Blood Urea Nitrogen 13 8 - 18 mg/dL [facility] Creatinine 0.93 0.70 - 1.20 mg/dL [facility] Sodium 143 135 - 145 mmol/L [facility] Potassium 4.1 3.5 - 5.0 mmol/L [facility] Comment: Please note: ??Patients with WBC >100,000 may have falsely elevated Potassium levels. ??For accurate Potassium quantification in these patients send serum separator tube (gold top) for subsequent determinations. ??Contact the Clinical Chemistry Laboratory if there are any questions. Chloride 104 98 - 107 mmol/L [facility] Carbon Dioxide 28 22 - 31 mmol/L [facility] Anion Gap 11 5 - 15 mmol/L [facility] Calcium 9.9 8.5 - 10.5 mg/dL [facility] Protein, Total 7.4 6.1 - 8.0 g/dL [facility] Albumin 4.7 3.2 - 5.2 g/dL [facility] Aspartate Aminotransferase 11 0 - 30 unit/L [facility] Alanine Aminotransferase 10 0 - 30 unit/L [facility] Alkaline Phosphatase 67 35 - 105 unit/L [facility] Bilirubin, Total 0.4 0.2 - 1.3 mg/dL [facility] Est Glomerular Filtration Rate 64 >=60 mL/min/1. 73 m?? [facility] Comment: This patient? s estimated [...] Agency Comment Spec In Lab Minna Rascon SAFETY REPRESENTATIVE CHEMISTRY ORDERABL ES Performing Organization Address City/[facility]/ZIP Co de Phone Number [facility] [place] [address] * Lactate Dehydrogenase (06/20/2021 2:04 PM EST) Lactate Dehydrogenase 197 110 - 220 unit/L [facility] Blood 06/20/2021 2:04 PM EST 06/20/2021 2:17 PM EST Narrative Resulting Agency Comment Spec In Lab Minna Rascon SAFETY REPRESENTATIVE CHEMISTRY ORDERABL ES Performing Organization Address [facility] Co de Phone Number [facility] [place] [address] documented in this encounter Visit Diagnoses Diagnosis Small cell lung cancer Malignant neoplasm of bronchus and lung, unspecified site documented in this encounter Care Teams Obstetrics Gynecology Physician Relationship Specialty Start Date End Date Nini Machado MD [address] [address] PCP - General 06/26/10 documented as of this encounter
--- OUTSIDE RECORDS SUMMARY | 2024-08-27 00:50 | XMS_ITS | Encounter Summary ---
Author Organization [facility] Address [facility] [place] [address] Care Team Providers Care Crop Grain Or Livestock Farmer Name Role Phone Nini Machado MD Primary Care Provider [phone] Encounter Details Date Type Department Care Team (Late Contact Info) Description 05/31/2021 [place] [address] Dianne Martinez Social History Tobacco Use Types Packs/Day Years Used Date Smoking Tobacco: Every Day Cigarettes 1 42 Sex and Gender Information Value Date Recorded Sex Assigned at Not on file Gender Identity Not on file Sexual Orientation Not on file documented as of this encounter Progress Notes * Dianne Martinez - 05/31/2021 10:[address] Machado's office to let her know about her patient's recent LCS result and need for a IP consult. documented in this encounter Plan of Treatment Upcoming Encounters Date Type Department Care Team (Late Contact Info) Description 08/30/2024 2:00 PM EST Office Visit Hematology/Oncology at [address] [phone] Mars Conley MD [facility] [address] [place] [address] Cailin Marrero, [address] [place] [address] 09/07/2024 9:00 AM EST Office [place] [address] Raven Alvarado MD [facility] DR GENERAL SURGERY [place], [place] [phone] 10/04/2024 1:15 PM EST Office [place] [address] Feliciano Shay, [facility] [place] [address] documented as of this encounter Visit Diagnoses Not on filedocumented in this encounter Care Teams Crop Grain Or Livestock Farmer Relationship Specialty Start Date End Date Marco Antonio-Nini Landrum MD [address] [place] [address] PCP - General 06/26/10 documented as of this encounter
--- OUTSIDE RECORDS SUMMARY | 2024-08-27 00:50 | XMS_ITS | Encounter Summary ---
Author Organization [facility] [place] [address] Care Team Providers Care Stock Replenisher Name Role Phone Nini Machado MD Primary Care Provider [phone] Reason for Referral * Diagnostic Test (Routine) - Closed Specialty Diagnoses / Procedures Referred By Contac t Referred To Contact Radiology Diagnoses Mediastinal adenopathy Procedures NM PET CT Skull Base to Mid-thigh Sebastian Hadley MD [facility] [place] [address] [place] [address] Referral ID Status Reason Start Date Expiration Date V isits Requested Visits Authorized [id number] Closed Specialty Service Requested 06/01/2021 11/30/2022 1 1 Reason for Visit * Diagnostic Test (Routine) - Closed Specialty Diagnoses / Procedures Referred By Contac t Referred To Contact Radiology Diagnoses Mediastinal adenopathy Procedures NM PET CT Skull Base to Mid-thigh Sebastian Hadley MD [facility] [place] [address] [facility] [email or web address] [address] Referral ID Status Reason Start Date Expiration Date V isits Requested Visits Authorized [id number] Closed Specialty Service Requested 06/01/2021 11/30/2022 1 1 Encounter Details Date Type Department Care Team (Latest Contact Info) Description 06/18/2021 9:54 AM EST - 06/18/2021 9:55 AM EST Hospital Encounter [place] [address] Sebastian Hadley MD [facility] [place] [address] Mediastinal adenopathy Discharge Disposition: Home Social History [...] PM EST Office Visit Hematology/Oncology at [address] [phone] Mars Conley MD [facility] DR [place] [address] Cailin Marrero APRN [address] [place] [address] DR HEMATOLOGY [place] [address] 09/07/2024 9:00 AM EST Office [place] [address] Raven Alvarado MD [facility] [place] [address] 10/04/2024 1:15 PM EST Office [place] [address] Feliciano Shay, [facility] [place] [address] documented as of this encounter Procedures Procedure Name Priority Date/Time Associated Diagnosis Comments NM PET CT SKULL BASE TO MID-THIGH ([facility]) Routine 06/18/2021 11:57 AM EST Mediastinal adenopathy documented in this encounter Results * (ABNORMAL) NM PET CT Skull Base to Mid-thigh (06/18/2021 11:57 AM EST) Anatomical Region Laterality Modality Positron Emissio n Tomography (PET) Impressions 06/18/2021 1:46 PM EST 1. ??A 2.4 cm highly FDG avid [...] versus malignant colonic neoplasm. Direct visualization recommended. Thank you for letting us participate in the care of this patient. ??If you are a health care provider and have any questions regarding this report, please contact the number below. ??For patients who have questions please contact the health hemodialysis patient care specialist that requested your imaging first. ? Narrative 06/18/2021 1:46 PM EST EXAMINATION: NM PET CT STANDARD SKULL BASE TO MID-THIGH CLINICAL HISTORY: Biopsy-proven small cell lung cancer in the subcarinal region TECHNIQUE: Following IV injection of 37-gwefqv-8-deoxyglucose (FDG) a standard uptake of approximately 60 minutes, a noncontrast CT scan followed by a PET scan were acquired from the base of the skull to mid thighs. The noncontrast CT was used for anatomic localization and photon attenuation correction of the PET scan. Blood glucose level: 92 (mg/dL) FDG dose: 8.6 mCi COMPARISON: CT chest 05/28/2021 and 04/14/2020 FINDINGS: HEAD/NECK: Normal activity in all soft tissue regions of the neck and visualized lower head. No significant adenopathy. CHEST: A 2.4 cm highly FDG avid necrotic appearing leonardo mass in the subcarinal region (centered on axial image 76). Small FDG avid adenopathy in the right hilum and right lower paratracheal region (axial images 77 [address] visualized subcentimeter opacity in the superior left lower lobe (axial image 67), unchanged compared to recent CT of 05/28 2021 and not present on CT of 04/2020. CT visualized subcentimeter ill-defined opacity in the right apex (axial image 49), unchanged dating back to CT of 04/14/2020. CT visualized sub-5 mm nodule in the left apex (axial image 46), unchanged compared to CT of 04/14/2020. Coronary and aortic calcifications. Multiple small benign-appearing FDG avid lymph nodes in the bilateral axillary regions, consistent with benign reactive nodes. The left-sided nodes are more prominent which is consistent with recent vaccination in the left arm. ABDOMEN/PELVIS: Focal FDG uptake in the wall of the cecum (axial image 182) where there is a suggestion of soft tissue thickening on noncontrast CT. Normal activity in all other soft tissue regions. No significant adenopathy. SKELETON/EXTREMITIES: Normal activity in all regions of the axial and visualized appendicular skeleton. Resulting Agency Comment Unexpected Finding Sebastian Hadley MD [facility] PET ORDERABLES documented in this encounter Visit Diagnoses Diagnosis Mediastinal adenopathy Enlargement of lymph nodes documented in this encounter Administered Medications Inactive Administered Medications - up to 3 most recent administrations Medication Order MAR Action Action Date Dose Rate Site fludeoxyglucose (F-18) FDG injection 0-20 mCi 0-20 mCi, Intravenous, ONCE PRN, 1 dose, Starting on Fri06/18/21 at 1050, Until Fri06/18/21 at 1042, Per Protocol, Radiology Contrast, Routine Given 06/18/2021 10:42 AM EST 8.6 mCi Right Arm documented in this encounter Care Teams Stock Replenisher Relationship Specialty Start Date End Date Marco Antonio-Nini Landrum MD [address] [place] [id number] PCP - General 06/26/10 documented as of this encounter
--- OUTSIDE RECORDS SUMMARY | 2024-08-27 00:50 | XMS_ITS | Encounter Summary ---
Author Organization [facility] Address [facility] [place] [address] Care Team Providers Care Wire Splicer Name Role Phone Nini Machado MD Primary Care Provider [phone] Encounter Details Date Type Department Care Team (Late st Contact Info) Description 06/07/2021 Tele[place] [phone] Leandra Cantrell Social History Tobacco Use Types [...] PM EST Office Visit Hematology/Oncology at [address] [phone] Mars Conley MD [facility] DR HEMATOLOGY [place] [address] Cailin Marrero APRN [address] [place] [address] DR HEMATOLOGY AND ONCOLOGY [place], [place] [address] 09/07/2024 9:00 AM EST Office [place] [address] Raven Alvarado MD [facility] [place] [address] 10/04/2024 1:15 PM EST Office [place] [phone] Feliciano Shay, [facility] [place] [address] documented as of this encounter Visit Diagnoses Not on filedocumented in this encounter Care Teams Wire Splicer Relationship Specialty Start Date End Date Nini Machado MD [address] [address] PCP - General 06/26/10 documented as of this encounter
--- OUTSIDE RECORDS SUMMARY | 2024-08-27 00:50 | XMS_ITS | Encounter Summary ---
Author Organization [facility] [place] [address] Care Team Providers Care Shuttlecock Feather Trimmer Name Role Phone Nini Machado MD Primary Care Provider Reason for Referral * Diagnostic Test (Routine) - Closed Specialty Diagnoses / Procedures Referred By Contac t Referred To Contact Radiology Diagnoses Nicotine dependence, cigarettes, uncomplicated Procedures CT Chest Screening Lung Cancer Nini Machado MD [address] [address] [facility] [place] [address] Referral ID Status Reason Start Date Expiration Date V isits Requested Visits Authorized [id number] Closed Specialty Service Requested 02/11/2020 08/13/2021 1 1 Reason for Visit * Diagnostic Test (Routine) - Closed Specialty Diagnoses / Procedures Referred By Contac t Referred To Contact Radiology Diagnoses Nicotine dependence, cigarettes, uncomplicated Procedures CT Chest Screening Lung Cancer Nini Machado MD [address] [address] [facility] [place] [address] Referral ID Status Reason Start Date Expiration Date V isits Requested Visits Authorized [id number] Closed Specialty Service Requested 02/11/2020 08/13/2021 1 1 Encounter Details Date Type Department Care Team (Late st Contact Info) Description 04/14/2020 9:53 AM EDT - 04/14/2020 11:59 PM EDT Hospital Encounter [place] [address] Nini Machado MD [address] [place] [address] [address] [place] [address] Nicotine dependence, cigarettes, uncomplicated Discharge Disposition: Home Social History Tobacco Use [...] PM EST Office Visit Hematology/Oncology at [address] [phone] Mars Conley MD [facility] DR [place] [address] Cailin Marrero [address] [place]EMATOLOGY [place] [address] 09/07/2024 9:00 AM EST Office Visit [place] [phone] Raven Alvarado MD [facility] [place] [address] 10/04/2024 1:15 PM EST Office Visit [place] [address] Feliciano Shay, [facility] [place] [address] documented as of this encounter Procedures Procedure Name Priority Date/Time Associated Diagnosis Comments CT CHEST SCREENING LUNG CANCER Routine 04/14/2020 10:04 AM EDT Nicotine dependence, cigarettes, uncomplicated documented in this encounter Results * CT Chest Screening Lung Cancer (04/14/2020 10:04 AM EDT) Anatomical Region Laterality Modality Computed Tomogra phy Impressions 04/15/2020 7:59 PM EDT Lung-RADS 2 (Benign appearance) RECOMMENDATION: Return to CT screening in one year Thank you for letting us participate in the care of this patient. For questions regarding this report, please contact the number below. ? Narrative 04/15/2020 7:59 PM EDT EXAMINATION: CT CHEST SCREENING LUNG CANCER CLINICAL HISTORY: Asymptomatic but at high risk for lung cancer TECHNIQUE: Noncontrast, low-dose chest CT (LDCT) per [facility] lung cancer screening protocol. COMPARISON: None FINDINGS: Lung-RADS Lung screening specific: Bilateral sub-6 mm pulmonary nodules (series 5, image 75, 145, 176, 199, 223, 255). Potentially significant incidental findings: None Other incidental findings: Punctate calcified granuloma in the right and left lower lobe. Diffuse centrilobular emphysema involving the upper and lower lobes. Mild coronary artery atherosclerotic calcification. Procedure Note Fouzia Cassidy MD - 04/15/2020 EXAMINATION: CT CHEST SCREENING LUNG CANCER CLINICAL HISTORY: Asymptomatic but at high risk for lung cancer TECHNIQUE: Noncontrast, low-dose chest CT (LDCT) per [facility] lung cancerscreening protocol. COMPARISON: None FINDINGS: Lung-RADS Lung screening specific: Bilateral sub-6 mm pulmonary nodules (series 5,image 75, 145, 176, 199, 223, 255). Potentially significant incidental findings: None Other incidental findings: Punctate calcified granuloma in the right andleft lower lobe. Diffuse centrilobular emphysema involving the upper and lower lobes. Mild coronary artery atherosclerotic calcification. IMPRESSION Lung-RADS 2 (Benign appearance) RECOMMENDATION: Return to CT screening in one year Thank you for letting us participate in the care of this patient. Forquestions regarding this report, please contact the number below. Electronically signed by: Fouzia Oliva MD, [facility] ([phone]), at 04/15/2020 7:59 PM Nini Machado MD IMG CT ORDERABLES documented in this encounter Visit Diagnoses Diagnosis Nicotine dependence, cigarettes, uncomplicated documented in this encounter Care Teams Shuttlecock Feather Trimmer Relationship Specialty Start Date End Date Nini Machado MD [address] [place] [id number] PCP - General 06/26/10 documented as of this encounter
--- OUTSIDE RECORDS SUMMARY | 2024-08-27 00:50 | XMS_ITS | Encounter Summary ---
Author Organization [facility] Address [facility] [place] [address] Care Team Providers Care Wet Sander Name Role Phone Nini Machado MD Primary Care Provider [phone] Encounter Details Date Type Department Care Team (Late st Contact Info) Description 06/07/2021 [place] [phone] Nohelia Kulkarni Social History Tobacco Use Types [...] PM EST Office Visit Hematology/Oncology at [address] [phone] Mars Conley MD [facility] DR [place] [address] Cailin Marrero APRN [address] [place] [address] DR HEMATOLOGY AND ONCOLOGY [place], [place] [address] 09/07/2024 9:00 AM EST Office [place] [phone] Raven Alvarado MD [facility] [place] [address] 10/04/2024 1:15 PM EST Office [place] [phone] Feliciano Shay, [facility] [place] [address] documented as of this encounter Visit Diagnoses Not on filedocumented in this encounter Care Teams Wet Sander Relationship Specialty Start Date End Date Marco Antonio-Nini Landrum MD [address] [address] PCP - General 06/26/10 documented as of this encounter
--- OUTSIDE RECORDS SUMMARY | 2024-08-27 00:50 | XMS_ITS | Encounter Summary ---
Author Organization [facility] [place] [address] Care Team Providers Care Gerontology Aide Name Role Phone Nini Machado MD Primary Care Provider [phone] Reason for Referral * Diagnostic Test (Routine) - Closed Specialty Diagnoses / Procedures Referred By Contac t Referred To Contact Radiology Diagnoses Mediastinal adenopathy Procedures MRI Brain wwo Contrast (Generic) Sebastian Hadley MD [facility] [place] [address] [facility] [place] [address] Referral ID Status Reason Start Date Expiration Date V isits Requested Visits Authorized [id number] Closed Specialty Service Requested 06/01/2021 11/30/2022 1 1 * Diagnostic Test (Routine) - Closed Specialty Diagnoses / Procedures Referred By Contac t Referred To Contact Radiology Diagnoses Mediastinal adenopathy Procedures NM PET CT Skull Base to Mid-thigh Sebastian Hadley MD [facility] [place] [address] [facility] [place] [address] Referral ID Status Reason Start Date Expiration Date V isits Requested Visits Authorized [id number] Closed Specialty Service Requested 06/01/2021 11/30/2022 1 1 Encounter Details Date Type Department Care Team (Late st Contact Info) Description 06/01/2021 Orders [place] [address] Sebastian Hadley MD [facility] [place] [address] Lung mass; Mediastinal adenopathy Social History Tobacco Use Types [...] PM EST Office Visit Hematology/Oncology at [address] [phone] Mars Conley MD [facility] DR HEMATOLOGY [place] [address] Cailin Marrero RETAIL BANKING MANAGER [address] [place] [address] DR [place]EM[place]Y [place] [address] 09/07/2024 9:00 AM EST Office [place] [address] Raven Alvarado MD [facility] [place] [address] 10/04/2024 1:15 PM EST [place] [address] Feliciano Shay, [facility] [place] [address] documented as of this encounter Results * (ABNORMAL) NM PET [...] have questions please contact the health manager long term care that requested your imaging first. ? Electronically signed by: Praveen Salamanca MD, [facility] ([phone]), at 06/18/2021 1:46 PM Narrative 06/18/2021 1:46 PM EST EXAMINATION: NM PET CT STANDARD SKULL BASE TO MID-THIGH CLINICAL HISTORY: Biopsy-proven small cell lung cancer in the subcarinal region TECHNIQUE: Following IV injection of 18-fifklz-9-deoxyglucose (FDG) a standard uptake of approximately 60 [...] Agency Comment Unexpected Finding Sebastian Hadley MD IMG PET ORDERABLES * MRI Brain wwo Contrast (Generic) (06/11/2021 [...] have questions please contact the health manager long term care that requested your imaging first. ? Electronically signed by: Anderson Mcnally MD, [facility] ([phone]), at 06/11/2021 11:55 AM Narrative 06/11/2021 11:55 [...] who have questions please contactthe health manager long term care that requested your imaging first. Electronically signed by: Anderson Mcnally MD, [facility]([phone]), at 06/11/2021 11:55 AM Sebastian Hadley MD IMG MRI ORDERABLES documented in this encounter Visit Diagnoses Diagnosis Lung mass Swelling, mass, or lump in chest Mediastinal adenopathy Enlargement of lymph nodes Mediastinal adenopathy Enlargement of lymph nodes Mediastinal adenopathy Enlargement of lymph nodes documented in this encounter Care Teams Gerontology Aide Relationship Specialty Start Date End Date Marco Antonio-Nini Landrum MD [address] [place] [address] PCP - General 06/26/10 documented as of this encounter
--- OUTSIDE RECORDS SUMMARY | 2024-08-27 00:50 | XMS_ITS | Encounter Summary ---
Author Organization [facility] Address [facility] [place] [address] Care Team Providers Care Production Tech Name Role Phone Nini Machado MD Primary Care Provider [phone] Encounter Details Date Type Department Care Team (Late Contact Info) Description 06/06/2021 Interpretation Only [address] [phone] Sherry Pollock MD [address] [place] [address] Social History Tobacco Use Types Packs/Day Years [...] PM EST Office Visit Hematology/Oncology at [address] [phone] Mars Conley MD [facility] DR HEMATOLOGY [place] [address] Cailin Marrero APRN [address] [place] [address] DR HEMATOLOGY AND ONCOLOGY [place], [place] [address] 09/07/2024 9:00 AM EST Office [place] [address] Raven Alvarado MD [facility] [place] [address] 10/04/2024 1:15 PM EST [place] [address] Feliciano Shay, DO [facility] DR NEUROLOGY DEPT [place], [place] [phone] documented as of this encounter Procedures Procedure Name Priority Date/Time Associated Diagnosis Comments CT ABD/PELVIS W OR WO CONTRAST Routine 06/06/2021 2:05 PM EDT documented in this encounter Results * CT Abdomen & Pelvis wwo Contrast (Generic) (06/06/2021 2:05 PM EDT) PT CLASS O RAD ADMITDTTM RAD PT RAD INFO [id number]^L [facility]^JENNIFE R RAD EXAM DESC CTAPWW^CT AB & PELV WITH/WITHOUT CONT^RIS RAD Anatomical Region Laterality Modality Abdomen, Pelvis Computed Tomogra phy Impressions 06/06/2021 2:38 PM EDT 1. ??.No nephrolithiasis, or evidence of renal/collecting system malignancy. 2. ??Slight interval increase in prominence of a dilated common bile duct, 12 mm in diameter. Thank you for letting us participate in the care of this patient. ??If you are a health care provider and have any questions regarding this report, please contact the number below. ??For patients who have questions please contact the health pharmacy customer care specialist that requested your imaging first. ? Narrative 06/06/2021 2:38 PM EDT EXAMINATION: CT AB & PELV WITH/WITHOUT CONT CLINICAL HISTORY: Microhematuria TECHNIQUE: Helical CT of the abdomen and pelvis was performed prior to and following intravenous administration of 100 ml of Omnipaque 350 COMPARISON: July 17, 2020 FINDINGS: Right kidney and ureter: No calculi, hydronephrosis or hydroureter. No renal lesions. No filling defect or abnormal wall thickening in the collecting system. Left kidney and ureter: No calculi, hydronephrosis or hydroureter. No renal lesions. No filling defect or abnormal wall thickening in the collecting system. Urinary bladder: Normal, no calculi, or visible mass. Lower chest: Normal. Liver: A tiny cyst in the right lobe. No suspicious lesions. Bile ducts: Slight interval increase in prominence of a dilated common bile duct tapering gradually to the level of the papilla, 12 mm in diameter. Gallbladder: No calcified gallstones. Normal caliber wall. Pancreas: Normal. Spleen: Normal. Adrenals: Normal. Vasculature: Mural calcifications in the abdominal aorta. No aneurysm. Lymph Nodes: No enlarged lymph nodes. Bowel: Nondilated, no wall thickening. Scattered sigmoid diverticula. No evidence of acute diverticulitis. Peritoneum and mesentery: No ascites, free air, or loculated fluid collection. No mesenteric inflammation. Abdominal wall: Normal. Reproductive organs: Normal uterus and the ovaries. Evidence of prior tubal ligation. Osseous structures: No suspicious lesions. Procedure Note Antoni Ramirez MD - 06/06/2021 EXAMINATION: CT AB & PELV WITH/WITHOUT CONT CLINICAL HISTORY: Microhematuria TECHNIQUE: Helical CT of the abdomen and pelvis was performed prior toand following intravenous administration of 100 ml of Omnipaque 350 COMPARISON: July 17, 2020 FINDINGS: Right kidney and ureter: No calculi, hydronephrosis or hydroureter. Norenal lesions. No filling defect or abnormal wall thickening in the collectingsystem. Left kidney and ureter: No calculi, hydronephrosis or hydroureter. Norenal lesions. No filling defect or abnormal wall thickening in the collectingsystem. Urinary bladder: Normal, no calculi, or visible mass. Lower chest: Normal. Liver: A tiny cyst in the right lobe. No suspicious lesions. Bile ducts: Slight interval increase in prominence of a dilated commonbile duct tapering gradually to the level of the papilla, 12 mm in diameter. Gallbladder: No calcified gallstones. Normal caliber wall. Pancreas: Normal. Spleen: Normal. Adrenals: Normal. Vasculature: Mural calcifications in the abdominal aorta. No aneurysm. Lymph Nodes: No enlarged lymph nodes. Bowel: Nondilated, no wall thickening. Scattered sigmoid diverticula. No evidence of acute diverticulitis. Peritoneum and mesentery: No ascites, free air, or loculated fluidcollection. No mesenteric inflammation. Abdominal wall: Normal. Reproductive organs: Normal uterus and the ovaries. Evidence of priortubal ligation. Osseous structures: No suspicious lesions. IMPRESSION 1. .No nephrolithiasis, or evidence of renal/collecting systemmalignancy. 2. Slight interval increase in prominence of a dilated common bile duct,12 mm in diameter. Thank you for letting us participate in the care of this patient. If youare a health care provider and have any questions regarding this report,please contact the number below. For patients who have questions please contactthe health pharmacy customer care specialist that requested your imaging first. Sherry Pollock MD IMG CT ORDERABLES documented in this encounter Visit Diagnoses Not on filedocumented in this encounter Care Teams Production Tech Relationship Specialty Start Date End Date Marco Antonio-Nini Landrum MD [address] [address] PCP - General 06/26/10 documented as of this encounter
--- OUTSIDE RECORDS SUMMARY | 2024-08-27 00:50 | XMS_ITS | Encounter Summary ---
Author Organization [facility] [place] [address] Care Team Providers Care Search Engine Optimization Consultant Name Role Phone Nini Machado MD Primary Care Provider [phone] Reason for Visit * Reason Onset Date Comments Pre Procedure Call 06/13/2021 Bronchoscopy Encounter Details Date Type Department Care Team (Late st Contact Info) Description 06/13/2021 [place] [phone] Jeanne Gallardo RN Pre Procedure Call (Bronchoscopy) Social History Tobacco Use Types Packs/Day Years Used Date Smoking Tobacco: Former Cigarettes 1 42 0 03/11/1979 - 03/11/2021 Smokeless Tobacco: Never Sex and Gender Information Value Date Recorded Sex Assigned at Not on file Gender Identity Not on file Sexual Orientation Not on file documented as of this encounter Miscellaneous Notes * Telephone Encounter - Jeanne Gallardo RN - 06/13/2021 9:54 AM EST Made scheduled call to review instructions prior to interventional pulmonary procedure: 1. [x] Informed patient of date, time, and location of procedure or pre- procedure imaging or tests as applicable. -Scheduled Bronchoscopy with EBUS on 06/14/2021 at 11:00 in Endo under [place] with Dr. Hadley. Arrive at 4T at 10:00 to check in. Procedure is scheduled for 60 minutes. 2. [x] Informed patient they must have special education bus driver who accompanies them into , if asked for a code at the entrance tell them 5533. -María, [id number] 3. [x] Reviewed home oxygen or ventilation use: [x] Patient not on home ventilator or oxygen [] Patient is on home oxygen and/or ventilator (document amount and type of oxygen device): [x] Patient confirms they will bring necessary supplies for transport to and from pt has hearingaids [] Patient identifies this potential supply issue: Will document and contact their DME for assistance. 4. [x] Medication review: Confirm any new medications since last seen in Pulmonary. Only need to review blood thinners, insulin and rescue inhaler. [x] Patient has rescue inhaler (e.g., albuterol) and will bring to procedure Pt has Ventolin [x] Anticoagulation and anti-platelet therapy reviewed: [] No anticoagulation or anti-platelet therapy [x] Patient will hold anticoagulation or anti-platelet therapy as directed (See IP job aid for standard instructions or MD note for special instructions) [x] Insulin use reviewed: [x] No insulin therapy [] Patient taking insulin: Instructed to take half of long acting dose, and NOT take short acting dose morning of procedure [x] Patient understands they are to take all other medications the day of procedure unless specifically addressed 5. [x] NPO instructions reviewed with patient: Do not have anything to eat after midnight the day of your procedure. You are permitted to have any amount of clear liquids up to two hours before yourscheduled procedure. This includes water, joshua aaron, apple juice, black coffee or tea. Sugar or sugar substitutes are fine in your coffee or tea, however you are not permitted to have any dairy products (or dairy substitutes) after midnight. You can not have any milk, cream, or creamers (regardless if dairy-free or not). Failure to abide to these instructions may result in cancellation of your procedure. Okay to take small sips of water to take allowed medications. 6. [x] COVID screening [x] Patient denies current symptoms or exposures as per most recent COVID Screening Job Aid 5. Other questions addressed during this call: N/A Jeanne Gallardo RN Department of Pulmonary 5C, [facility] / Pager: [phone] documented in this encounter Plan of Treatment Upcoming Encounters Date Type Department Care Team (Late st Contact Info) Description 08/30/2024 2:00 PM EST Office Visit Hematology/Oncology at [address] [phone] Mars Conley MD [facility] DR H[place]AT[place] [address] Cailin Marrero APRN [address] [place] [address] [place] [address] 09/07/2024 9:00 AM EST Office [place] [phone] Raven Alvarado MD [facility] [place] [address] 10/04/2024 1:15 PM EST Office Visit Neurology at [place] [phone] Feliciano Shay, [facility] [place] [address] documented as of this encounter Visit Diagnoses Not on filedocumented in this encounter Care Teams Search Engine Optimization Consultant Relationship Specialty Start Date End Date Marco Antonio-Nini Landrum MD [address] [place] [address] PCP - General 06/26/10 documented as of this encounter
--- OUTSIDE RECORDS SUMMARY | 2024-08-27 00:50 | XMS_ITS | Encounter Summary ---
Author Organization [facility] [place] [address] Care Team Providers Care Venture Capital Analyst Name Role Phone Nini Machado MD Primary Care Provider [phone] Encounter Details Date Type Department Care Team (Latest Contact Info) Description 07/18/2020 1:43 PM EST - 07/18/2020 11:59 PM EST Hospital En[place] [address] Discharge Disposition: Home Social History Tobacco Use [...] PM EST Office Visit Hematology/Oncology at [address] [address] Mars Conley MD [facility] DR [place] [address] Cailin Marrero APRN [address] [place] [address] DR HEMATOLOGY AND ONCOLOGY [place], [place] [address] 09/07/2024 9:00 AM EST Office [place] [phone] Raven Alvarado MD [facility] [place] [address] 10/04/2024 1:15 PM EST [place] [phone] Feliciano Shay, [facility] [place] [address] documented as of this encounter Procedures Procedure Name Priority Date/Time Associated Diagnosis Comments ABORH TYPE MANUAL Routine 07/18/2020 10: 00 AM EST AB COMMENT Routine 07/18/2020 10:00 AM EST ANTIBODY IDENTIFICATION Routine 07/18/20 10:00 AM EST ANTIBODY SCREEN Routine 07/18/2020 10:00 AM EST documented in this encounter Results * ABORh Type Manual (07/18/2020 10:00 AM EST) Expires at 2359 on: 07/18/2020 [facility] ABORH Type A Pos [facility] Blood specimen (specimen) Venous Draw / Unknown 07/18/2020 10:00 AM EST 07/18/2020 1:58 PM EST Narrative Resulting Agency Comment Spec In Lab Lab BLOOD BANK LAB ORDER YOANA [facility] [place] [address] * Ab Comment (07/18/2020 10:00 AM EST) Ab Information INTERPRETATION: A red cell alloantibody, anti-K, 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 ??This antibody can cause red cell hemolysis. Future units for transfusion will be negative for the K antigen and cross-match compatible at the antiglobulin phase. ??These additional steps will add about an hour to unit preparation time, but compatible units should be available in our inventory. Gerson Yu MD, PhD Transfusion Medicine Service 07/24/20 16:54 [facility] Comment: GERSON YU, Iván Verified:07/24/20 Blood specimen (specimen) Venous Draw / Unknown 07/18/2020 10:00 AM EST 07/18/2020 1:58 PM EST Narrative Resulting Agency Comment Spec In Lab Lab BLOOD BANK LAB ORDER YOANA Performing Organization Address City/[facility]/ZIP Co de Phone Number [facility] [place] [address] * Antibody identification (07/18/2020 10:00 AM EST) Ab Identified Anti-K [facility] Blood specimen (specimen) Venous Draw / Unknown 07/18/2020 10:00 AM EST 07/18/2020 1:58 PM EST Narrative Resulting Agency Comment Spec In Lab Lab BLOOD BANK LAB ORDER YOANA [facility] [place] [address] * Antibody screen (07/18/2020 10:00 AM EST) Ab Screen Interp Positive [facility] Expires at 2359 on: 07/21/2020 [facility] Blood specimen (specimen) Venous Draw / Unknown 07/18/2020 10:00 AM EST 07/18/2020 1:58 PM EST Narrative Resulting Agency Comment Spec In Lab Dr Lab BLOOD BANK LAB ORDER YOANA Performing Organization Address [facility] Co de Phone Number [facility] [place] [address] documented in this encounter Visit Diagnoses Not on filedocumented in this encounter Care Teams Venture Capital Analyst Relationship Specialty Start Date End Date Nini Machado MD [address] [place] [address] PCP - General 06/26/10 documented as of this encounter
--- OUTSIDE RECORDS SUMMARY | 2024-08-27 00:50 | XMS_ITS | Encounter Summary ---
Author Organization [facility] Address [facility] [place] [address] Care Team Providers Care Fourdrinier Operator Name Role Phone Nini Machado MD Primary Care Provider [phone] Encounter Details Date Type Department Care Team (Late st Contact Info) Description 06/08/2021 [place] [phone] Nohelia Kulkarni Social History Tobacco Use Types [...] 2:00 PM EST Office Visit Hematology/Oncology at [address] [phone] Mars Conley MD [facility] DR [place] [address] Cailin Marrero APRN [address] [place] [address] DR HEMATOLOGY AND ONCOLOGY [place], [place] [address] 09/07/2024 9:00 AM EST Office [place] [phone] Raven Alvarado MD [facility] [place] [address] 10/04/2024 1:15 PM EST [place] [phone] Feliciano Shay, [facility] [place] [address] documented as of this encounter Visit Diagnoses Not on filedocumented in this encounter Care Teams Fourdrinier Operator Relationship Specialty Start Date End Date Marco Antonio-Nini Landrum MD [address] [address] PCP - General 06/26/10 documented as of this encounter
--- OUTSIDE RECORDS SUMMARY | 2024-08-27 00:50 | XMS_ITS | Encounter Summary ---
Author Organization [facility] Address [facility] [place] [address] Care Team Providers Care Payroll Director Name Role Phone Nini Machado MD Primary Care Provider [phone] Encounter Details Date Type Department Care Team (Late st Contact Info) Description 08/29/2020 [facility] [place] [phone] Covid, Eligible Social History Tobacco Use Types Packs/Day Years [...] PM EST Office Visit Hematology/Oncology at [address] [phone] Mars Conley MD [facility] DR HEMATOLOGY [place] [address] Cailin Marrero APRN [address] [place] [address] DR HEMATOLOGY AND ONCOLOGY [place], [place] [address] 09/07/2024 9:00 AM EST Office Visit [place] [address] Raven Alvarado MD [facility] [place] [address] 10/04/2024 1:15 PM EST Office Visit [place] [phone] Feliciano Shay, [facility] [place] [address] documented as of this encounter Visit Diagnoses Not on filedocumented in this encounter Care Teams Payroll Director Relationship Specialty Start Date End Date Marco Antonio-Nini Landrum MD [address] [address] PCP - General 06/26/10 documented as of this encounter
--- OUTSIDE RECORDS SUMMARY | 2024-08-27 00:51 | XMS_ITS | Encounter Summary ---
[facility] Address [facility] [place] [address] Care Team Providers Care Archives Technician Name Role Phone Nini Machado MD Primary Care Provider [phone] Encounter Details Date Type Department Care Team (Late st Contact Info) Description 11/17/2009 [place] [address] Jaclyn Beltrán MD [facility] [place] [address] Social History Tobacco Use Types Packs/Day Years Used Date Smoking Tobacco: Never Assessed Overall Financial Resource Strain (CARDIA) Ans[place] r [...] PM EST Office Visit Hematology/Oncology at [address] [phone] Mars Conley MD [facility] DR [place] [address] Cailin Marrero APRN [address] [place] [address] DR HEMATOLOGY AND ONCOLOGY [place], [place] [address] 09/07/2024 9:00 AM EST Office [place] [phone] Raven Alvarado MD [facility] [place] [address] 10/04/2024 1:15 PM EST [place] [phone] Feliciano Shay, [facility] [place] [address] documented as of this encounter Procedures Procedure Name Priority Date/Time Associated Diagnosis Comments NON-PRIZER HAND FINAL REPORT Routine 11/17/2009 12:18 PM EDT documented in this encounter Results * Non-Sonographer Final Report (11/17/2009 12:18 PM EDT) Non-Sonographer Final Report [id number] ? Location: The signing pathologist has (i) examined the relevant preparation(s) for the specimen(s) and (ii) rendered or confirmed the diagnosis(es). . ? Pathology Non-Sonographer Cytology Final Report Clinical Information Specimen Source: ?Urine, Voided Clinical History/Impress ion: ?? Hematuria Gross Description: ?? Received ??in 50% ETOH, ??approximately 50 ml. total volume of ?? clear, yellow fluid. ?? Total Preparation: Liquid Based Prep 1. Interpretation Specimen submitted is satisfactory. Diagnosis Negative for Malignancy 11/20/09 ?Screened by: ? DMG ?Rescreened by: ?? SBT 11/22/09 ?Verified by: ? Nini Saleh MD ? Pathologist ? (Electronic Signature) Comment Urine, Voided: ? Numerous red blood cells. ? No malignant cells identified. ASMITA MARIENNIUM 11/17/2009 12:1 8 PM EDT Jaclyn Beltrán MD PATHOLOGY/CYTOL OGY ORDERABLES ASMITA MURCIA documented in this encounter Visit Diagnoses Not on filedocumented in this encounter Care Teams Archives Technician Relationship Specialty Start Date End Date Nini Machado MD [address] [facility] [address] [place] [address] PCP - General 06/26/10 06/26/10 documented as of this encounter
--- OUTSIDE RECORDS SUMMARY | 2024-08-27 00:51 | XMS_ITS | Encounter Summary ---
Author Organization [facility] [place] [address] Care Team Providers Care Snow Plow Operator Name Role Phone Karthik Machado MD Primary Care Provider [phone] Encounter Details Date Type Department Care Team (Latest Contact Info) Description 10/07/2019 9:19 PM EST - 10/07/2019 11:59 PM EST Hospital [place] [address] Discharge Disposition: Home Social History Tobacco Use [...] PM EST Office Visit Hematology/Oncology at [address] [phone] Mars Conley MD [facility] DR HEMATOLOGY [place] [address] Cailin Marrero APRN [address] [place] [address] DR HEMATOLOGY AND ONCOLOGY [place], [place] [phone] 09/07/2024 9:00 AM EST Office Visit General Surgery at [place] [phone] Raven Alvarado MD [facility] [place] [address] 10/04/2024 1:15 PM EST Office Visit Neurology at [place] [phone] Feliciano Shay, DO [facility] [place] [address] documented as of this encounter Procedures Procedure Name Priority Date/Time Associated Diagnosis Comments SURGICAL PATHOLOGY REPORT Routine 10/07/2019 12:00 PM EST documented in this encounter Results * Surgical Pathology Report (10/07/2019 12:00 PM EST) Final Diagnosis [id number] ? Location: [facility] The signing pathologist has (i) examined the relevant preparation(s) for the specimen(s) and (ii) rendered or confirmed the diagnosis(es). . ?Surgical Pathology DIAGNOSIS Rectal sigmoid colon, polypectomy: Hyperplastic polyp with focal mucosal hemorrhage. CR-PX Electronically signed by: ??Jc PALENCIA, Abby Verified: ??10/14/2019 ?Pathologist Performed at: ??-[facility] Dept. of Pathology, [place], [place] CLINICAL INFORMATION Specimen Submitted: A - Rectal sigmoid polyp Clinical History and Diagnosis: Family history colon cancer Report to: karthik machado Referring Identifier: ?(not provided) SPECIMEN PROCESSING A - Labeled/Fixativ e: Rectal sigmoid BX, formalin. Quantity/Size: Single, 0.6 cm. Tissue Description: Soft, pink-red tissue. Sections/Proces sing: Bisected and entirely submitted in 1 cassette labeled A1. ??MLL 10/14/2019 5:35 PM EDT [facility] GI Biopsy 10/07/2019 12:0 0 PM EST 10/07/2019 12:00 PM EST Jersey Henriquez DO PATHOLOGY/CYTOLOGY O RDERABLES [facility] [place] [address] documented in this encounter Visit Diagnoses Not on filedocumented in this encounter Care Teams Snow Plow Operator Relationship Specialty Start Date End Date Karthik Machado MD [address] [place] [address] PCP - General 06/26/10 documented as of this encounter
--- OUTSIDE RECORDS SUMMARY | 2024-08-27 00:51 | XMS_ITS | Encounter Summary ---
Author Organization [facility] [place] [address] Care Team Providers Care Fitting Room Maintenance Mechanic Name Role Phone Nini Machado MD Primary Care Provider [phone] Encounter Details Date Type Department Care Team (Latest Contact Info) Description 06/22/2019 9:52 PM EST - 06/22/2019 11:59 PM EST [place] [address] Discharge Disposition: Home Social History Tobacco Use [...] PM EST Office Visit Hematology/Oncology at [address] [phone] Mars Conley MD [facility] DR HEMATOLOGY [place] [address] Cailin Marrero APRN [address] [place] [address] DR HEMATOLOGY AND ONCOLOGY [place], [place] [phone] 09/07/2024 9:00 AM EST Office Visit General Surgery at [place] [phone] Raven Alvarado MD [facility] [place] [address] 10/04/2024 1:15 PM EST Office Visit Neurology at [place] [phone] Feliciano Shay, [facility] [place] [address] documented as of this encounter Procedures Procedure Name Priority Date/Time Associated Diagnosis Comments HPV Routine 06/22/2019 4:00 PM EST MANAGER OF PRODUCTION CYTOLOGY INTERPRETATION Routine 06/22/2019 4:00 PM EST MANAGER OF PRODUCTION CYTOLOGY FINAL REPORT Routine 06/22/2019 4:00 PM EST documented in this encounter Results * Analytical Technician Cytology Final Report (06/22/2019 4:00 PM EST) Analytical Technician Cytology Final Report [id number] ? Location: [facility] The signing pathologist has (i) examined the relevant preparation(s) for the specimen(s) and (ii) rendered or confirmed the diagnosis(es). . ? Analytical Technician Final DIAGNOSIS Normal Negative for intraepithelial lesion or malignancy (NILM). For consensus guidelines for the management of cervical cancer screening test results, please see: ?? http://www.asccp.o rg . Electronically signed by: ??MORENITA Waters(ASCP), Nancy Bacon Verified: ??07/02/2019 ?Bill Clerk Performed at: ??-[facility] Dept. of Pathology, [place], [place] HPV RESULTS HPV16 (Result) ?Negative HPV18 [...] Clinical Genomics and [employer] (CGAT) at [facility]. ? - Senthil Dias, PhD, [facility], Director-CGAT STATEMENT OF ADEQUACY Specimen submitted is satisfactory. Endocervical component present. CLINICAL INFORMATION HPV Option: ? Concurrent HPV CT/NG Option: ? No Preparation: ?Liquid Based Pap Specimen Source: ?Cervical Endocervical LBP LMP: ?2001 ??Postmenopausal Hysterectomy?: ?No ?: ?No ?: ?No I.U.D.?: ?No Pelvic Radiation: ? No Hist Abnl Pap/Biopsy?: ??Yes Prior MANAGER OF PRODUCTION Therapy?: ? No Hist of HPV Vaccine?: ?? No Clinical Data, Significant Therapy and Clinical Impression ?? : ?? _ Referring Identifier: ?(not provided) . CLINICAL INFORMATION This Pap Test has been evaluated with the assistance of the [employer] Pap Test Imaging System. Note: The Pap test is a screening test for cervical cancer with an inherent false-negative rate dependent upon several variables. For further information please contact the [facility] Laboratory. Reference: Kandy ROBINS. Fraud Prevention Analyst of Pap Smear Results. In: Arielle BS, Nas GANNON, ed. ??The Pap Smear. [place]: Valeriano, 2002: 71-77. [facility] 06/22/2019 4:00 PM EST Nini Machado MD PATHOLOGY/CYTOLOGY O RDERABLES [facility] [place] [place] [address] * MANAGER OF PRODUCTION Cytology Interpretation (06/22/2019 4:00 PM EST) Analytical Technician Cytology Interpretation NILM [facility] Comment:Analytical Technician Cytology Final R eport Endocervical Component Present [facility] AP Specimen 06/22/2019 4:00 PM EST 07/02/2019 5:53 PM EST Nini Machado MD PATHOLOGY/CYTOLOGY O BRANDIN Performing Organization Address [facility] Co de Phone Number [facility] [place] [place] [address] * HPV (06/22/2019 4:00 PM EST) HPV16 NEGATIVE NEGATIVE [facility] HPV 18 NEGATIVE NEGATIVE [facility] HPV Other HR NEGATIVE NEGATIVE [facility] HPV Interpretation See Comment [facility] Comment: NEGATIVE for high-risk HPV *. [...] In Lab Nini Machado MD PATHOLOGY/CYTOLOGY O BRANDIN Performing Organization Address [facility] de Phone Number [facility] [place] [place] [address] documented in this encounter Visit Diagnoses Not on filedocumented in this encounter Care Teams Fitting Room Maintenance Mechanic Relationship Specialty Start Date End Date Nini Machado MD [address] [address] PCP - General 06/26/10 documented as of this encounter
[2024-08-27] MEDS: Barium Sulfate 2% W/V-Berry Smoothie 450 ML BTL PO ×2 (11:35→11:36)
[2024-08-27 11:58] LABS: Abs Immature Grans 0.05 10^3/uL (0.0-0.06); Absolute Basophil Count 0.05 10^3/uL (0.0-0.2); Absolute Eosinophil Count 0.18 10^3/uL (0.0-0.7); Absolute Lymphocyte Count 0.97 10^3/uL (1.2-3.4); Absolute Neutrophil Count 7.56 10^3/uL (1.2-6.7); Basophils % 0.5 %; HCT 49.9 % (36.0-46.0); HGB 15.4 g/dL (11.2-15.7); Immature Grans % 0.5 %; Lymphocytes % 10.5 %; MCH 29.1 pg (27.0-33.0); MCHC 30.9 % (32.0-36.0); MCV 94 fL (80-95); MPV 9.4 fL (8.0-11.0); Monocytes % 4.3 %; Neutrophils % 82.2 %; Platelet Count 257 10^3/uL (130-400); RDW 14.1 % (11.7-14.6); RDW-SD 48.8 fL; WBC 9.21 10^3/uL (4.4-10.8)
[2024-08-27 12:18] LABS: ALT 41 U/L (14-59); AST 26 U/L (15-37); Albumin 3.8 g/dL (3.4-5.0); Alkaline Phosphatase 101 U/L (46-116); Anion Gap 6.1 mmol/L (3-11); BUN 14 mg/dL (7-18); Bilirubin, Total 0.61 mg/dL (0.2-1.0); CO2 33.9 mmol/L (21.0-32.0); CREATININE 1.1 mg/dL (0.55-1.02); Calcium 9.7 mg/dL (8.5-10.1); Chloride 102 mmol/L (98-107); Estimated GFR 54.73 (mL/min/1.73m2); Glucose 125 mg/dL (74-106); Sodium 142 mmol/L (136-145); Total Protein 8.5 g/dL (6.4-8.2)
[2024-08-27] MEDS: Normal Saline - Diluent 50 ML VIAL IJ (13:42)
[2024-08-27] MEDS: Omnipaque 350 MG/ML 100 ML BTL IJ (13:42)
== END 2024-08-27 01:02 ==
PROVIDERS: PCP Family Medicine; Visit Provider Internal Medicine Medical Oncology
DX: C34.90 Malignant neoplasm of unspecified part of unspecified bronchus or lung (principal); K76.0 Fatty (change of) liver, not elsewhere classified; I70.0 Atherosclerosis of aorta; K57.30 Diverticulosis of large intestine without perforation or abscess without bleeding; Z98.890 Other specified postprocedural states
CPT/HCPCS: 74177; 80053; 71260; 85025; J3490

== ENCOUNTER 2025-02-21 00:26 | Outpatient (CLI) | payer MEDICARE, SELFPAY ==
--- NOTE | 2025-02-21 | DI.CT_ITS ---
Exam(s) CT CHEST W EXAM: CT CHEST W CLINICAL HISTORY: SMALL CELL LUNG CANCER C34.90 SURVEILLANCE TECHNIQUE: Imaging Protocol: Axial computed tomography images with coronal and sagittal reformatted images were created and reviewed. Computer aided detection (CAD) was utilized. CONTRAST MATERIAL: Intravenous: Omnipaque 350 Contrast volume:70 ml. COMPARISON: CT CT CHEST W from 04/21/[address] CHEST W from 10/13/[address] CHEST/ABD/PEL W from 08/27/2024 FINDINGS: Pulmonary parenchyma: No consolidation. No dominant measurable mass. Mild emphysematous changes. Stable 5 millimeter nodule posteromedial right upper lobe. Tracheobronchial tree: No bronchiectasis or mucous plugging. Mediastinum and Sofiya: No dominant adenopathy or fluid collection. Pleura: No effusion. No pneumothorax. Heart: The heart is not dilated. Mild coronary artery calcifications are seen. Aorta: Thoracic aorta non-dilated. Mild atherosclerotic changes. Pulmonary arteries: No gross evidence of emboli. Upper abdomen: No acute findings. Severe hepatic steatosis. Bones: Degenerative changes in the spine. Soft tissues: Unremarkable. IMPRESSION: Stable 5 millimeter nodule right upper lobe. RADIATION DOSE DELIVERED: 105.5mGy.cm Total DLP DATA REPOSITORY: All CT scans at this facility are submitted to the National Radiology Data Registry (NRDR) Dose Index Registry (DIR) with the [employer] (ACR). RADIATION OPTIMIZATION: All CT scans at this facility use at least one of these dose optimization techniques: automated exposure control; mA and/or kV adjustment per patient size (includes targeted exams where dose is matched to clinical indication); or iterative reconstruction.
[2025-02-21 09:03] LABS: Abs Immature Grans 0.03 10^3/uL (0.0-0.06); HCT 44.2 % (36.0-46.0); HGB 13.4 g/dL (11.2-15.7); Immature Grans % 0.4 %; MCH 28.5 pg (27.0-33.0); MCHC 30.3 % (32.0-36.0); MCV 94 fL (80-95); MPV 9.5 fL (8.0-11.0); Platelet Count 267 10^3/uL (130-400); RBC 4.71 10^6/uL (3.93-5.22); RDW 15.2 % (11.7-14.6); RDW-SD 53.0 fL; WBC 7.69 10^3/uL (4.4-10.8)
[2025-02-21 09:20] LABS: ALT 26 U/L (14-59); AST 14 U/L (15-37); Albumin 3.5 g/dL (3.4-5.0); Alkaline Phosphatase 121 U/L (46-116); Anion Gap 8.1 mmol/L (3-11); BUN 22 mg/dL (7-18); Bilirubin, Total 0.4 mg/dL (0.2-1.0); CO2 29.9 mmol/L (21.0-32.0); Calcium 9.5 mg/dL (8.5-10.1); Chloride 103 mmol/L (98-107); Estimated GFR 69.20 (mL/min/1.73m2); Glucose 139 mg/dL (74-106); Magnesium 1.9 mg/dL (1.8-2.4); Potassium 4.5 mmol/L (3.5-5.1); Sodium 141 mmol/L (136-145); Total Protein 7.9 g/dL (6.4-8.2)
[2025-02-21] MEDS: Normal Saline - Diluent 50 ML VIAL IJ (09:41)
[2025-02-21] MEDS: Omnipaque 350 MG/ML 500 ML BTL-Imaging package IJ (09:42)
== END 2025-02-21 00:46 ==
LOC: DI 00:26
PROVIDERS: PCP Family Medicine; Visit Provider Nurse Practitioner Family
DX: C34.91 Malignant neoplasm of unspecified part of right bronchus or lung (principal)
CPT/HCPCS: 80053; 71260; 83735; 85025